=== PATIENT | female | born 1960 | race Caucasian/White ===

== ENCOUNTER 2017-09-25 18:29 | Inpatient (IN) | payer OTHER, SELFPAY ==
[2017-09-25] MEDS ORDERED: Albuterol Sulfate 2.5 mg/3 ml Neb ONE ×2 (19:09)
[2017-09-25 19:50] LABS: Sodium 134 mmol/L (135-148)
[2017-09-25 19:51] LABS: Mode BIPAP; Modified Allen's Test POSITIVE; Pressure Support 12 cmH2O; Vent NO
[2017-09-25 20:10] LABS: Troponin I 0.016 ng/mL (< 0.028)
--- NOTE | 2017-09-25 22:47 | HP-2 ---
DATE OF SERVICE: 09/25/2017 TIME OF ADMISSION: 19:40, on 09/25/2017 CODE STATUS: Full. PRIMARY CARE PHYSICIAN: Patricia Lance in [place], [place]. ATTENDING PHYSICIAN: Dr. Arias. RESIDENT: Dr. Brannon Briggs. HISTORIAN: Patient. CHIEF COMPLAINT: Shortness of breath. HISTORY OF PRESENT ILLNESS: A 57-year-old female with a past medical history of COPD who presents wi th several day history of worsening shortness of breath. Patient failed outpatient treatment on pred nisone. After seeing her PCP, Dr. Patricia Lance in [place], she then went [place] the [place] [facility] [place] this [place] for chest tightness and inability to take a deep breath and she was noted to have increased work of breathing, was tachypneic, had elevated respiratory rate and was given Solu-Medrol, DuoNebs x2 and Levaquin. She was still having difficulty breathing after these treatments and was p laced on BiPAP and they were unable to wean her. She was then transferred here. In the [place] [facility], the patient received 125 mg Solu-Medrol, 750 mg IV of Levaquin, DuoNeb x2, aspirin 324 mg and ma gnesium sulfate, all received at 16:38. Here, in this ER, the patient received albuterol nebs. PAST MEDICAL HISTORY: COPD, osteoarthritis, asthma, hyperlipidemia and prediabetic depression. PRIOR HOSPITALIZATIONS: On 11/2016, the patient was admitted and intubated for COPD exacerbation. T he patient states she was on life support and states that she was told she had some right heart damag e. The patient received an echo at that time, which showed an ejection fraction of 60% to 65%, trace tricuspid regurg and mild mitral valve regurg and a small pericardial effusion. PAST SURGICAL HISTORY: Appendectomy and tubal ligation. ALLERGIES: SULFA. MEDICATIONS: Famotidine, DuoNebs, prednisone 30 mg daily, Advair, ProAir and Lasix started 3 weeks a go. FAMILY HISTORY: OR in mom at 57 and at 59. SOCIAL HISTORY: The patient quit smoking 1 year ago prior to had [id number] smoking history. [facility] ed alcohol and drug use. REVIEW OF SYSTEMS: GENERAL: Denied fevers or chills. Endorsed a 40-pound weight gain over the last 8-9 months. RESPIRATORY: Denied cough or congestion. Endorsed shortness of breath. CARDIOVASCULAR: Denied chest pain or palpitations. Endorsed edema in her bilateral lower extremitie s. GASTROINTESTINAL: Denied nausea, vomiting, diarrhea or constipation. Endorsed midepigastric and rig ht upper quadrant soreness and bloating. GENITOURINARY: Denies incontinence or dysuria. SKIN: Denied rashes, lesions or jaundice. MUSCULOSKELETAL: Denied pain or tenderness. Endorsed lower extremity swelling bilaterally. NEUROLOGIC: Denied weakness or numbness. PSYCHIATRIC: Denied anxiety or depression. PHYSICAL EXAMINATION: VITAL SIGNS: Blood pressure 111/80, pulse 113, respiratory rate 16, T-max 98.4%, pulse ox 97% on BiP AP. EPAP and IPAP were 12 and 6. Rate was set at 8, but she was breathing at approximately 20 breat hs per minute on 35% O2. GENERAL: Alert and oriented x4, no apparent distress, well-developed, well-nourished, obese, appropr iately interactive. EYES: Pupils are equal, round and reactive to light and accommodation. Extraocular muscles intact. Conjunctivae within normal limits. ENT: Oropharynx and nasal mucosa dry. NECK: Supple. No thyromegaly. CARDIOVASCULAR: Mildly tachycardic. No murmurs. Distant S1 and S2. 2+ pedal pulses. RESPIRATORY: Increased effort without retractions. Decreased breath sounds throughout all lung fiel ds. No wheezing, rhonchi or rales. ABDOMEN: Soft, right upper quadrant and midepigastric tenderness. Hypoactive bowel sounds diffusely distended. EXTREMITIES: No clubbing or cyanosis. Edema present 1+ pitting in bilateral lower extremities to th e mid anders. MUSCULOSKELETAL: Structure within normal limits. NEUROLOGICAL: No focal deficits. Sensation within normal limits. Cranial nerves II-XII intact. GC S 15. PSYCHIATRIC: Appropriate. LABORATORY AND IMAGING DATA: CBC: White blood cell count 16.8, hemoglobin and hematocrit 14.3 and 4 3.1, platelets 267. CMP: Sodium 138, potassium 3.5, chloride 99, bicarb 25, BUN 13, creatinine 0.89 and glucose 312. AST, ALT and alkaline phosphatase 24, 76 and 53. Calcium, total protein and albumin 8.5, 6.22 and 3. 5. Total bilirubin 0.3, GFR 66, troponin 0.034 and BNP 45. ABG: PH of 7.42, pCO2 of 32 and pO2 115. EKG: Sinus tachycardia. Chest x-ray: Hyperinflation with chronic changes, superimposed interstitial infiltrate or edema verónica ot be ruled out. ASSESSMENT AND PLAN: A 57-year-old female with a past medical history of chronic obstructive pulmona ry disease presenting with worsening shortness of breath over the past several days who failed outpat ient management on oral prednisone, transferred from [facility] on BiPAP and may have her chroni c obstructive pulmonary disease exacerbation on BiPAP to the [facility] and with fluid overload, which coul d be due to new onset heart failure. 1. Acute hypoxic respiratory failure secondary to chronic obstructive pulmonary disease exacerbation . The patient was admitted to [facility], currently on BiPAP. We will continue the BiPAP overnight. Dr. South was consulted. The patient received 125 mg of Solu-Medrol in the [place] ER. We will st art the patient on methylprednisone 40 mg IV q.6 hours. We will also schedule the patient on DuoNeb q.4 hours and provide albuterol p.r.n. q.2 hours. The patient takes Advair at home. We will start t he patient on Dulera, which is the Advair equivalent here daily. We will continue Levaquin 750 mg IV ; patient received one dose at 16:38 on 09/25 in the [place] ER. We will repeat a chest x-ray a nd ABG in the morning. We will attempt to wean the patient off BiPAP in the morning. 2. Volume overload, possibly secondary to new onset heart failure. Patient had an echo in 11/2016 w ith an ejection fraction of 60% to 65%, which showed trace tricuspid regurgitation and mild mitral re gurgitation with a small pericardial effusion. The patient stated that in November, she was on life support and was told that she had some right heart damage. We will repeat an echo in the morning. W e started the patient on Lasix 40 mg IV for her fluid overload. We also started the patient on 40 mg of potassium chloride b.i.d. A repeat BNP will be done in the morning as well as a repeat BNP. 3. Elevated troponins without chest pain. We will trend patient's troponins. We will order an EKG if the patient does develop chest pain. 4. Obesity with a 40-pound weight gain, likely fluid overload versus chronic steroid use. We will r epeat a BNP and an echo in the morning to evaluate for cardiac etiology. 5. Prediabetic. We will check the patient's hemoglobin A1c and provide sliding scale insulin for th e first 24 hours and possibly recommend long-acting insulin depending on how much sliding scale she r equires. 6. Hyperlipidemia. The patient is not currently taking a statin. We will order a lipid profile. 7. Elevated liver enzymes. We will repeat a CMP in the morning. Disposition and length of hospital stay 3 days. Symptomatic medications will be provided. History and physical exam as well as management discussed with Dr. Arias.
[2017-09-25] MEDS ORDERED: Dextrose 5% in Water 1,000 ML IV PRN (22:50)
[2017-09-25] MEDS ORDERED: HumaLOG 300 UNITS/3 ML VIAL SC PRN (22:50)
[2017-09-25] MEDS ORDERED: Albuterol Sulfate 2.5 mg/3 ml Neb NEB PRN (22:50)
[2017-09-25] MEDS ORDERED: Dextrose 50% Abboject 50 ML SYRINGE SLOW IVP PRN (22:50)
[2017-09-25 22:59] VITALS: BMI 34.0
[2017-09-25] MEDS ORDERED: Potassium Chloride 20 MEQ TAB PO SCH (23:00)
[2017-09-25] MEDS ORDERED: Furosemide 40 MG/4 ML VIAL SLOW IVP SCH (23:00)
[2017-09-25] MEDS ORDERED: Famotidine/PF 20 mg/2ml Vial SLOW IVP SCH (23:15)
[2017-09-25 23:17] LABS: Hemoglobin A1c 7.8 % (4.0-6.0)
[2017-09-25] MEDS: Sodium Chloride 0.9% 1,000 ML IV SCH (23:30)
[2017-09-25] MEDS: methylPREDNISolone Sod Succ/PF 125 MG/2 ML VIAL IVP SCH (23:30)
[2017-09-26] MEDS: Acetaminophen 325 MG TAB PO PRN ×3 (01:21→20:21)
[2017-09-26 05:02] LABS: #Eosinphils 0.1 thou/uL (0.0-0.7); #Lymphocytes 0.4 thou/uL (1.20-3.40); #Monocytes 0.3 thou/uL (0.11-0.59); #Neutrophils 9.8 thou/uL (1.40-6.50); %Basophils 0.1 % (0.0-1.0); %Eosinophils 0.6 % (0.0-10.0); %Lymphocytes 3.3 % (21.0-51.0); %Monocytes 2.8 % (0.0-10.0); Hematocrit 42.8 % (36.0-47.0); Mean Platelet Volume 6.8 fL (7.4-10.4); Red Blood Cell (RBC) Count 4.33 mill/uL (4.20-5.40); White Blood Cell (WBC) Count 10.5 thou/uL (4.8-10.8)
[2017-09-26 05:13] LABS: ALT (SGPT) 71 U/L (8-55); AST (SGOT) 14 U/L (5-34); Alkaline Phosphatase 51 U/L (40-150); Anion Gap 17 mmol/L (10-20); BUN (Urea Nitrogen) 17 mg/dL (9.8-20.1); Bilirubin, Total 0.3 mg/dL (0.2-1.2); Calc. Creatinine Clearance 72 mL/min (70-130); Calcium 9.3 mg/dL (7.8-10.44); Carbon Dioxide 24 mmol/L (22-29); Chloride 97 mmol/L (98-107); Estimated GFR-MDRD 48; Globulin 2.6 g/dL (2.4-3.5); Protein, Total 6.4 g/dL (6.0-8.3)
[2017-09-26] MEDS: methylPREDNISolone Sod Succ/PF 125 MG/2 ML VIAL IVP SCH (05:39)
[2017-09-26] MEDS: Sodium Chloride 0.9% 1,000 ML IV SCH (05:40)
--- NOTE | 2017-09-26 06:55 | PDOC.FM ---
- Subjective Subjective: Patient doing well this AM. She was able to get off of BiPAP last night and back on 3L by nasal cannula which is what she is on at home. Her work of breathing has decreased. No significant overnight events. She did state that the lasix helped take some fluid off of the lower extremities. Patient denies chest pain, fever, or chills. She states that she still gets short of breath when she has to move around. She has been in and out of her PCP's office all this year with COPD exacerbations and has been on steroids chronically for the past year. - Objective MAR Reviewed: Yes Vital Signs & Weight: Vital Signs (12 hours) Temp Pulse Resp BP Pulse Ox 09/26/17 04:00 97.7 F 97 18 124/77 96 09/26/17 00:25 126 H 20 94 L 09/26/17 00:00 97.9 F 103 H 20 142/58 H 97 09/25/17 23:14 97.7 F 110 H 22 H 94 L 09/25/17 22:15 97.7 F 110 H 22 H 112/81 94 L Weight Weight 84.504 kg Result Diagrams: 09/26/17 04:30 09/26/17 04:30 EKG Reviewed by me: Yes Radiology Reviewed by me: Yes <Cathy Harris - Last Filed: 09/26/17 07:59> - Objective Vital Signs & Weight: Vital Signs (12 hours) Temp Pulse Resp BP BP Pulse Ox 09/26/17 07:58 97.3 F L 89 20 126/64 97 09/26/17 07:55 97.7 F 97 18 96 09/26/17 04:00 97.7 F 97 18 124/77 96 09/26/17 00:25 126 H 20 94 L 09/26/17 00:00 97.9 F 103 H 20 142/58 H 97 09/25/17 23:14 97.7 F 110 H 22 H 94 L 09/25/17 22:15 97.7 F 110 H 22 H 112/81 94 L Weight Weight 186 lb 4.8 oz Result Diagrams: 09/26/17 04:30 09/26/17 04:30 <Angel Arias - Last Filed: 09/26/17 09:57> Phys Exam - Physical Examination HEENT: moist MMs, sclera anicteric Neck: supple Decreased breath sounds throughout Cardiovascular: RRR, no significant murmur Gastrointestinal: soft, no distention, positive bowel sounds mildly tender Musculoskeletal: no edema decreased pulses Neurological: non-focal, moves all 4 limbs Psychiatric: A&O x 3 Skin: no rash, cap refill <2 seconds <Cathy Harris - Last Filed: 09/26/17 07:59> Dx/Plan (1) Acute on chronic respiratory failure with hypoxia Code(s): J96.21 - ACUTE AND CHRONIC RESPIRATORY FAILURE WITH HYPOXIA Status: Acute (2) COPD exacerbation Code(s): J44.1 - CHRONIC OBSTRUCTIVE PULMONARY DISEASE W (ACUTE) EXACERBATION Status: Acute (3) Diabetes mellitus, type II Status: Chronic (4) Hypertension Code(s): I10 - ESSENTIAL (PRIMARY) HYPERTENSION Status: Chronic QualifierTitle: Hypertension type: essential hypertension Qualified Code( s): I10 - Essential (primary) hypertension (5) Obesity (BMI 30-39.9) Code(s): E66.9 - OBESITY, UNSPECIFIED Status: Chronic (6) Tobacco abuse Code(s): Z72.0 - TOBACCO USE Status: Chronic - Plan Plan: Plan: Acute hypoxic respiratory failure: - Continue BiPAP - Treat COPD exacerbation - Wean off BiPAP as tolerated - AB.42, 32.3, 115.7 - Repeat ABG pending - CXR shows possible congestion, repeat CXR read pending for this AM - Possible new onset CHF; ECHO pending COPD exacerbation: - Continue BiPAP, wean as tolerated - Continue levoquin, methylprednisone, duonebs; switch to PO meds - Repeat ABG pending this AM - CXR shows chronic lung changes - Keep O2 between 88 and 94% - Restart home medications - Add Spiriva - Consider treatment with Azithromycin as outpatient Diabetes Mellitus Type II: - HgA1c 7.8 - BG elevated on Mild SSI; consider starting levemir - Started patient on lisinopril and statin - Likely steroid induced - Restart metformin Possible new onset CHF - Echo pending - Patient with LE edema and weight gain - Lasix started - BNP pending HTN - Continue home meds - Started on lisinopril Dispo: plan to move patient to floor; possible d/c within next few days if patient continues to do well <Cathy Harris - Last Filed: 09/26/17 07:59> Attending Addendum - Attending Addendum I personally evaluated the patient and discussed the management with Dr. Harris I agree with the History, Examination, Assessment and Plan documented above with any addition or exceptions noted below. She is much better overnight. She weaned from BiPap. Edema is improved and her breathing is stable. She can go to the floor. Continue Lasix, Nebs, O2. <Angel Arias - Last Filed: 09/26/17 09:57>
[2017-09-26] MEDS ORDERED: Dextrose 50% Abboject 50 ML SYRINGE SLOW IVP PRN (08:11)
[2017-09-26] MEDS ORDERED: Dextrose 5% in Water 1,000 ML IV PRN (08:11)
[2017-09-26] MEDS: predniSONE 20 MG TAB PO SCH (09:31)
[2017-09-26] MEDS: Aspirin 325 MG TAB PO SCH (09:31)
[2017-09-26] MEDS: Montelukast Sodium 10 mg Tablet PO SCH (09:31)
[2017-09-26] MEDS: Famotidine/PF 20 mg/2ml Vial SLOW IVP SCH ×2 (09:32→20:21)
[2017-09-26] MEDS: Furosemide 40 MG/4 ML VIAL SLOW IVP SCH (09:32)
[2017-09-26] MEDS: Potassium Chloride 20 MEQ TAB PO SCH (09:32)
[2017-09-26] MEDS: Lisinopril 2.5 MG TAB PO SCH (09:38)
[2017-09-26] MEDS: Enoxaparin Sodium 40 MG/0.4 ML SYRINGE SC SCH (09:56)
--- NOTE | 2017-09-26 10:04 | RAD ---
1 VIEW CHEST: Date: 09/26/17 HISTORY: New onset COPD exacerbation. COMPARISON: 12/01/16. FINDINGS: Stable cardiac silhouette. Pulmonary vessels and hilum are normal. Costophrenic angles are clear. Hyp erinflation with chronic changes. No masses or consolidation. No pneumothorax. Cervical fusion hardwa re is noted. IMPRESSION: Hyperinflation. No acute process. POS: [facility]
[2017-09-26] MEDS: HumaLOG 300 UNITS/3 ML VIAL SC PRN ×2 (11:28→16:59)
[2017-09-26] MEDS ORDERED: ISOVUE-370 76%-LOCM 1 ML ONE (11:48)
[2017-09-26 12:10] LABS: Oxyhemoglobin 94.4 % (94.0-97.0); Sodium 134 mmol/L (135-148)
[2017-09-26 12:11] LABS: Mode 2LNC
[2017-09-26] MEDS ORDERED: Cyclobenzaprine 10 MG TAB PO SCH (15:15)
[2017-09-26] MEDS: metFORMIN 500 MG TAB PO SCH (16:13)
[2017-09-26] MEDS: Atorvastatin Calcium 10 MG TAB PO SCH (20:22)
--- NOTE | 2017-09-26 22:53 | CON ---
DATE OF CONSULTATION: 09/26/2017 SERVICE: Pulmonary Medicine. REASON FOR CONSULTATION: Respiratory failure. HISTORY OF PRESENT ILLNESS: The patient is a 57-year-old white female with past medical history sign ificant for horrendous COPD. I saw her back in November. Since then, she has basically been in and out hospital for COPD exacerbations and possible pneumonias. She presented to the emergency [facility] at this time around with a 1 month history of increasing difficulty breathing, particularly with e xertion and at night while she was sleeping. She is essentially sleeping up right now. She also has weight gain, abdominal swelling, and lower extremity swelling. She is on 40 pounds of weight over t he past 5 months. She underwent a heart evaluation, which has essentially been unremarkable today, b ut is not quite complete yet. In this setting, she presented to the emergency department. Her diffi culty breathing was so severe that she intermittently required noninvasive ventilation. This was dis continued this morning. She was subsequently transitioned to the floor. She does feel much improved with a little bit of Lasix, nebulized medications, steroids, and antibiotics. PAST MEDICAL HISTORY: 1. COPD, horrendous. 2. Osteoarthritis. 3. Dyslipidemia. 4. Major depressive disorder. 5. Prediabetes. PAST SURGICAL HISTORY: 1. Appendectomy. 2. Tubal ligation. ALLERGIES: SULFA. MEDICATIONS: List of inpatient medications were reviewed. Multiple updates were made. SOCIAL HISTORY: Negative for alcohol, tobacco, or illicit drug use, currently. She has a 20-pack-ye ar history of smoking, and quit a year ago. She has no exposure to chemicals, dust, asbestos, or tu berculosis. FAMILY HISTORY: Noncontributory. REVIEW OF SYSTEMS: General, head, ears, eyes, nose, throat, cardiovascular, respiratory, GI, , mus culoskeletal, neurologic, and skin is negative except as mentioned in the HPI. PHYSICAL EXAMINATION: VITAL SIGNS: Afebrile, pulse 113, blood pressure was 120/67, respirations 16, saturation 96% on 2 li ters nasal cannula. GENERAL: Patient is awake, alert, in no apparent distress. LUNGS: Per family, reduced air entry. There is a prolonged expiratory phase. She is not enough air for me to hear adventitious sounds. HEART: Tachycardic. Regular. ABDOMEN: Soft, nontender, nondistended, bowel sounds positive. MUSCULOSKELETAL: No cyanosis or clubbing. There is 2+ pitting in the bilateral lower extremities. NEUROLOGIC: Grossly nonfocal. LABORATORY DATA: WBC 10.5, hemoglobin 13.5, platelets 274,000. PH 7.43, pCO2 35, pO2 of 69. Creati nine 1.17. Basic metabolic profile is otherwise unremarkable. Liver function studies were also unre markable except for an ALT of 71. Blood sugars ranged from 226 to 334. ASSESSMENT: 1. Acute hypoxic respiratory failure. 2. Chronic obstructive pulmonary disease with acute exacerbation. 3. Acute on chronic diastolic heart failure. PLAN: I do agree with diurese her until she returns euvolemia. In the meantime, we will give her so me steroids, nebulized medications, and antibiotics. I do think that she has horrendous COPD at [place]. I sprinkled on a little bit of water into a very thick lungs and you are going to face with re current exacerbations. She likely has obstructive sleep apnea. This will need to be addressed in e outpatient setting. Pulmonary will continue to follow for the time being.
--- NOTE | 2017-09-26 23:11 | CT ---
CT ANGIOGRAM OF CHEST: Date: 09/17/17 COMPARISON: 06/25/17. HISTORY: Tachycardia and shortness of breath, assess for pulmonary embolism. TECHNIQUE: Serial axial CT imaging obtained at 2.5 mm intervals through the chest with IV contrast using a CT an giogram protocol. Coronal and oblique sagittal 3D reformatted imaging obtained. FINDINGS: The imaged upper abdomen demonstrates diffuse hepatic steatosis of the imaged hepatic parenchyma. Vag ue hypodensities are noted within the imaged portion of the right kidney, incompletely characterized. There is scattered atherosclerotic calcification of the thoracic and abdominal aorta. There is no pleural, pericardial, or mediastinal fluid. Incompletely assessed cervical spine hardware is present. Thyroid gland is grossly unremarkable. No axillary, mediastinal, or hilar lymphadenopathy. Small hiat al hernia present. Scattered coronary arterial calcifications seen. There is good opacification of the pulmonary arterial vasculature. There is no evidence for pulmonary embolism. There is no pneumothorax seen on either side. Linear pleural thickening along the major fissure on the left most prominent in the superior segment, improved significantly since prior imaging. There is significant upper lobe emphysematous change avery aterally. No acute osseous abnormality is noted. IMPRESSION: Numerous incidental findings as described above. No evidence for pulmonary embolism. POS: [facility]
--- NOTE | 2017-09-27 05:47 | PDOC.FM ---
- Subjective Subjective: Patient doing well this AM. She was sitting at bedside drinking coffee. No significant overnight events. A CTA of chest was performed to rule out PE. It was negative. Patient states her breathing has improved, but her lungs still feel "wet". She has been intermittently tachycardic, but not tachypneic. Patient also endorses urinary symptoms this AM. She states she is urinating more frequently which can be explained by the lasix, but she has also been experiencing discomfort with urination since yesterday. - Objective MAR Reviewed: Yes Vital Signs & Weight: Vital Signs (12 hours) Temp Pulse Resp BP Pulse Ox 09/27/17 04:16 98.7 F 108 H 21 H 116/51 L 99 09/27/17 02:24 101 H 16 97 09/27/17 00:06 106 H 18 96 09/26/17 22:17 105 H 20 96 09/26/17 19:30 97.9 F 120 H 20 96 09/26/17 18:43 113 H 16 96 Weight Weight 84.504 kg I&O: 09/25/17 09/26/17 09/27/17 06:59 06:59 06:59 Intake Total 970 Output Total 2650 Balance -1680 Result Diagrams: 09/27/17 05:30 09/27/17 05:30 EKG Reviewed by me: Yes Radiology Reviewed by me: Yes Phys Exam - Physical Examination Constitutional: NAD HEENT: moist MMs, sclera anicteric Neck: supple Decreasd breath sounds throughout Cardiovascular: RRR, no significant murmur Gastrointestinal: soft, non-tender, positive bowel sounds mildly distended Musculoskeletal: edema present pedal and radial pulses 1+, 1+ edema b/l LE Neurological: non-focal, moves all 4 limbs Psychiatric: normal affect, A&O x 3 Skin: no rash, cap refill <2 seconds Dx/Plan (1) Acute on chronic respiratory failure with hypoxia Code(s): J96.21 - ACUTE AND CHRONIC RESPIRATORY FAILURE WITH HYPOXIA Status: Acute (2) COPD exacerbation Code(s): J44.1 - CHRONIC OBSTRUCTIVE PULMONARY DISEASE W (ACUTE) EXACERBATION Status: Acute (3) Diabetes mellitus, type II Status: Chronic (4) Hypertension Code(s): I10 - ESSENTIAL (PRIMARY) HYPERTENSION Status: Chronic Qualifiers: Hypertension type: essential hypertension Qualified Code(s): I10 - Essential (primary) hypertension (5) Obesity (BMI 30-39.9) Code(s): E66.9 - OBESITY, UNSPECIFIED Status: Chronic (6) Tobacco abuse Code(s): Z72.0 - TOBACCO USE Status: Chronic - Plan Plan: Plan: Acute hypoxic respiratory failure: - Weaned from BiPAP; satting in the upper 90's on 2L O2 - Treat COPD exacerbation - AB.42, 32.3, 115.7; repeat AB.43, 34.7, 69.4 - CTA chest ordered to rule out PE due to acid/base status - CXR shows possible congestion; diurese patient - Echo confirmed grade 1/3 diastolic CHF COPD exacerbation: - Continue oxygen - Continue levoquin, prednisone, duonebs - CXR shows chronic lung changes with some possible congestion - Keep O2 between 88 and 94% - Restart home medications - Add Spiriva as outpatient - Consider treatment with Azithromycin as outpatient dCHF - Confirmed by ECHO - Grade 1/3 dCHF - Diurese - Continue KENYETTA-I - BNP 45 - LE edema and weight gain over the last few months Diabetes Mellitus Type II: - HgA1c 7.8 - BG elevated on Moderate SSI; consider starting levemir - Started patient on lisinopril and statin - Likely steroid induced - Home meds: metformin HTN - Started on lisinopril Dysuria: - Urinalysis Dispo: Continue to monitor respiratory status; may consider discharge within the next few days
[2017-09-27 05:51] LABS: #Eosinphils 0.3 thou/uL (0.0-0.7); #Monocytes 1.1 thou/uL (0.11-0.59); #Neutrophils 10.9 thou/uL (1.40-6.50); %Basophils 0.3 % (0.0-1.0); %Eosinophils 1.8 % (0.0-10.0); %Lymphocytes 13.8 % (21.0-51.0); %Monocytes 7.9 % (0.0-10.0); Hematocrit 43.2 % (36.0-47.0); Mean Platelet Volume 6.3 fL (7.4-10.4); White Blood Cell (WBC) Count 14.3 thou/uL (4.8-10.8)
[2017-09-27 06:15] LABS: ALT (SGPT) 63 U/L (8-55); AST (SGOT) 19 U/L (5-34); Alkaline Phosphatase 47 U/L (40-150); Anion Gap 13 mmol/L (10-20); BUN (Urea Nitrogen) 19 mg/dL (9.8-20.1); Bilirubin, Total 0.3 mg/dL (0.2-1.2); Calc. Creatinine Clearance 82 mL/min (70-130); Calcium 9.6 mg/dL (7.8-10.44); Carbon Dioxide 28 mmol/L (22-29); Chloride 99 mmol/L (98-107); Estimated GFR-MDRD 59; Globulin 2.5 g/dL (2.4-3.5); Protein, Total 6.1 g/dL (6.0-8.3)
[2017-09-27 06:19] LABS: Troponin I 0.021 ng/mL (< 0.028)
[2017-09-27] MEDS: Aspirin 325 MG TAB PO SCH (09:03)
[2017-09-27] MEDS: Montelukast Sodium 10 mg Tablet PO SCH (09:03)
[2017-09-27] MEDS: predniSONE 20 MG TAB PO SCH (09:03)
[2017-09-27] MEDS: metFORMIN 500 MG TAB PO SCH ×2 (09:03→16:43)
[2017-09-27] MEDS: Furosemide 40 MG/4 ML VIAL SLOW IVP SCH (09:03)
[2017-09-27] MEDS: Enoxaparin Sodium 40 MG/0.4 ML SYRINGE SC SCH (09:03)
[2017-09-27] MEDS: Potassium Chloride 20 MEQ TAB PO SCH (09:03)
[2017-09-27] MEDS: Lisinopril 2.5 MG TAB PO SCH (09:03)
[2017-09-27] MEDS: Acetaminophen 325 MG TAB PO PRN ×2 (09:17→20:21)
--- NOTE | 2017-09-27 10:44 | PRG ---
DATE OF SERVICE: 09/27/2017 SUBJECTIVE: Ms. Werner is a pleasant 57-year-old patient with a history of severe COPD. She was a dmitted with acute on chronic respiratory failure with hypoxia and an exacerbation of her COPD. She was treated with steroids and DuoNeb and feels much better. She is also diuresed a great deal. She likely has an element of cor pulmonale causing some of her peripheral edema. She also has a history of diastolic heart failure and a recent echo shows an ejection fraction of 60%-65%. This morning, yoli states she is feeling better. She had quit taking her medications for several days and this likely led to an exacerbation of her COPD as well as diastolic heart failure. She will likely be discharge d later this afternoon for close followup.
[2017-09-27 12:35] LABS: Bilirubin Negative (Negative); Blood, Urine Trace (Negative); Glucose, Urine (Dipstick) Negative (Negative); Ketone, Urine Negative (Negative); Nitrite Negative (Negative); Protein, Urine (Dipstick) Negative (Neg-Trace); Urobilinogen 0.2 mg/dL (0.2-1.0)
[2017-09-27] MEDS: HumaLOG 300 UNITS/3 ML VIAL SC PRN ×2 (12:44→16:45)
[2017-09-27 12:53] LABS: RBC/HPF 0-3 HPF (0-3); WBC/HPF 0-3 HPF (0-3)
[2017-09-27 12:54] LABS: Bacteria/HPF Rare-Few HPF (None Seen); Hyaline Casts/LPF NONE SEEN LPF (0-3 Hyaline); Squamous Epithelial 0-3 HPF (0-3)
[2017-09-27] MEDS ORDERED: Cyclobenzaprine 10 MG TAB PO PRN (14:10)
--- NOTE | 2017-09-27 18:39 | PRG ---
DATE OF SERVICE: 09/27/2017 SERVICE: Pulmonary Medicine. INTERVAL HISTORY: The patient is doing fine from a respiratory standpoint. Last night, she put her CPAP on. It hyperinflated her lungs and she felt suffocated. I did not have the same effect with th e previous BiPAP had. As such, after 1 hour, she had difficulty with breathing and took her an addit ional hour to settle down. She reattempted using the CPAP this morning and had a similar experience. As such, she has been in therapy altogether. She is bringing up sputum production. She has no sig nificant nausea or vomiting or diarrhea. Otherwise, things are relatively stable. PHYSICAL EXAMINATION: VITAL SIGNS: Afebrile, pulse 115, blood pressure 91/66, respirations 21, saturation 95% on 2 liters nasal cannula. GENERAL: Patient is awake, alert, in no apparent distress. LUNGS: Reduced air entry with prolonged expiratory phase. I do not appreciate any wheezing, rhonchi , or crackles, but she is not moving enough to hear any adventitious sounds. HEART: Tachycardic. Regular. ABDOMEN: Soft, nontender, nondistended. Bowel sounds positive. MUSCULOSKELETAL: No cyanosis or clubbing. There is 1+ pitting in the bilateral lower extremities. NEUROLOGIC: Grossly nonfocal. LABORATORY DATA: WBC 14.3, hemoglobin 13.7, platelets 271,000. Basic metabolic profile and liver fu nction studies are unremarkable. Cardiac enzymes negative. Blood sugars ranged from 140-182. Urina lysis is unremarkable. IMAGING: CTA of the chest demonstrates no evidence of an acute pulmonary embolism. ASSESSMENT: 1. Acute hypoxic respiratory failure. 2. Chronic obstructive pulmonary disease with acute exacerbation. 3. Acute on chronic diastolic heart failure. We will continue to slowly diurese her until she retur ns to euvolemia. We are fast approaching that place. We will continue antibiotic, nebulized medicat ions, and steroids for the time being. Hopefully, in 24-48 hours, she will turn to corner and be muc h more functional. CPAP is going to be discontinued. I would love to put the patient through a slee p study in the outpatient setting to determine whether or not we can qualify her for BiPAP, but she i s suggesting to me that this is unlikely to get done because she currently has no insurance. I have asked her to look into getting some as it is open enrollment.
[2017-09-27] MEDS: Atorvastatin Calcium 10 MG TAB PO SCH (20:21)
[2017-09-28] MEDS: Cyclobenzaprine 10 MG TAB PO PRN ×3 (00:17→20:49)
[2017-09-28] MEDS: Acetaminophen 325 MG TAB PO PRN ×3 (06:36→21:12)
--- NOTE | 2017-09-28 06:39 | PDOC.FM ---
- Subjective Subjective: Patient doing well this AM. No significant overnight events. Patient still having difficulty with breathing when ambulating. Symptoms have improved, but patient does not yet feel back to baseline. She denies chest pain or cough. She states she is starting to feel dry, but is still complaining of abdominal bloating secondary to fluid. - Objective MAR Reviewed: Yes Vital Signs & Weight: Vital Signs (12 hours) Temp Pulse Resp BP Pulse Ox 09/28/17 06:21 94 L 09/28/17 04:00 97.6 F 107 H 16 104/56 L 96 09/28/17 01:50 94 L 09/27/17 22:00 94 L 09/27/17 19:16 95 09/27/17 19:14 20 95 09/27/17 19:10 97.9 F 112 H 22 H 95 Weight Weight 79.832 kg I&O: 09/26/17 09/27/17 09/28/17 06:59 06:59 06:59 Intake Total 1120 1310 Output Total 3650 3300 -2529 Result Diagrams: 09/27/17 05:30 09/27/17 05:30 EKG Reviewed by me: Yes Radiology Reviewed by me: No Phys Exam - Physical Examination Constitutional: NAD HEENT: moist MMs, sclera anicteric Neck: supple, full ROM decreased breath sounds throughout Cardiovascular: RRR, no significant murmur Gastrointestinal: soft, non-tender, no distention, positive bowel sounds Musculoskeletal: pulses present Neurological: non-focal, moves all 4 limbs Psychiatric: A&O x 3 Skin: no rash, cap refill <2 seconds Dx/Plan (1) Acute on chronic respiratory failure with hypoxia Code(s): J96.21 - ACUTE AND CHRONIC RESPIRATORY FAILURE WITH HYPOXIA Status: Acute (2) COPD exacerbation Code(s): J44.1 - CHRONIC OBSTRUCTIVE PULMONARY DISEASE W (ACUTE) EXACERBATION Status: Acute (3) Diabetes mellitus, type II Status: Chronic (4) Hypertension Code(s): I10 - ESSENTIAL (PRIMARY) HYPERTENSION Status: Chronic Qualifiers: Hypertension type: essential hypertension Qualified Code(s): I10 - Essential (primary) hypertension (5) Obesity (BMI 30-39.9) Code(s): E66.9 - OBESITY, UNSPECIFIED Status: Chronic (6) Tobacco abuse Code(s): Z72.0 - TOBACCO USE Status: Chronic - Plan Plan: Plan: Acute hypoxic respiratory failure: - Satting in upper 90's on 2-3 L O2 nasal cannula - Treat COPD exacerbation - AB.42, 32.3, 115.7; repeat AB.43, 34.7, 69.4 - CTA chest ordered to rule out PE due to acid/base status; negative for PE - CXR shows possible congestion; diurese patient - Echo confirmed grade 1/3 diastolic CHF Tachycardia: - May be secondary to duoneb treatments vs. deconditioning - Continue to monitor on telemetry COPD exacerbation: - Continue oxygen - Continue levoquin, prednisone, duonebs - CXR shows chronic lung changes with some possible congestion - Keep O2 between 88 and 94% - Restart home medications - Add Spiriva as outpatient - Consider treatment with Azithromycin as outpatient dCHF - Confirmed by ECHO - Grade 1/3 dCHF - Diurese until euvolemic - Continue KENYETTA-I - BNP 45 - LE edema and weight gain over the last few months - Diabetes Mellitus Type II: - HgA1c 7.8 - BG elevated on Moderate SSI; consider starting levemir - Requiring approximately 8 units of SSI - Started patient on lisinopril and statin - Likely steroid induced - Home meds: metformin HTN - Started on lisinopril Dysuria: - Urinalysis negative, will not treat at this time Dispo: Continue to monitor respiratory status; may consider discharge within next day if respiratory status stable
[2017-09-28] MEDS: Potassium Chloride 20 MEQ TAB PO SCH (08:14)
[2017-09-28] MEDS: Montelukast Sodium 10 mg Tablet PO SCH (08:15)
[2017-09-28] MEDS: Aspirin 325 MG TAB PO SCH (08:15)
[2017-09-28] MEDS: Enoxaparin Sodium 40 MG/0.4 ML SYRINGE SC SCH (08:15)
[2017-09-28] MEDS: predniSONE 20 MG TAB PO SCH (08:15)
[2017-09-28] MEDS: Furosemide 40 MG/4 ML VIAL SLOW IVP SCH (08:15)
[2017-09-28] MEDS ORDERED: metFORMIN 500 MG TAB PO SCH (08:16)
[2017-09-28] MEDS: Lisinopril 2.5 MG TAB PO SCH (10:21)
[2017-09-28] MEDS: metFORMIN 500 MG TAB PO SCH ×3 (10:23→16:07)
--- NOTE | 2017-09-28 12:59 | EKG ---
Test Reason : Blood Pressure : / mmHG Vent. Rate : 113 BPM Atrial Rate : 113 BPM P-R Int : 152 ms QRS Dur : 054 ms QT Int : 312 ms P-R-T Axes : 082 045 067 degrees QTc Int : 427 ms Sinus tachycardia Possible Left atrial enlargement Nonspecific ST and T wave abnormality Abnormal ECG Confirmed by NESTOR STEVENSON ([id number]), online content editor OSMAN BROWN ([id number]) on 09/28/2017 12:58:41 PM Referred By: Confirmed By:NESTOR STEVENSON
--- NOTE | 2017-09-28 13:31 | ADD-PRG ---
ADDENDUM: This is an addendum to the note of Dr. Cathy Harris. Ms. Werner is resting quietly in bed. She has responded well to diuresis and has no further shortn ess of breath. We can likely let her go home later today, but we will consult with Pulmonology who s ees on a regular basis. In the event, she is clinically improved.
[2017-09-28] MEDS: HumaLOG 300 UNITS/3 ML VIAL SC PRN ×2 (14:26→18:26)
[2017-09-28] MEDS ORDERED: Famotidine 20 MG TAB PO SCH (15:45)
--- NOTE | 2017-09-28 18:19 | PRG ---
DATE OF SERVICE: 09/28/2017 SERVICE: Pulmonary Medicine. INTERVAL HISTORY: The patient is doing fine from a respiratory standpoint. She denies any current f chalino, chills, nausea, vomiting or chest discomfort. There has been no overnight events. Otherwise, she is returning to her usual state of health. She really responded nicely to the diuretics. PHYSICAL EXAMINATION: VITAL SIGNS: Afebrile, pulse 104, blood pressure 116/68, respirations 18, saturation 95% on 3 liters nasal cannula. GENERAL: Patient is awake, alert, no apparent distress. LUNGS: Much improved air entry. She continues to have prolonged expiratory phase. Today, I hear mo re wheezing. There is also some dependent crackles that are minimally evident. HEART: Tachycardic. Regular. ABDOMEN: Soft, nontender, nondistended. Bowel sounds positive. MUSCULOSKELETAL: No cyanosis or clubbing. No pitting in the bilateral lower extremities. NEUROLOGIC: Grossly nonfocal. LABORATORY DATA: WBC 14.3, hemoglobin 13.7, platelets 271,000. ASSESSMENT: 1. Acute hypoxic respiratory failure. 2. Chronic obstructive pulmonary disease with acute exacerbation. 3. Acute on chronic diastolic heart failure. PLAN: The patient has effectively returned to her usual state of health with diuretics. She does johnson ve advanced COPD. At this point, she indicates that she is returning to her usual state of health. As such, she can be transitioned out of the hospital. Antibiotics can be continued for a total durat ion of 7 days, steroids for 5 days, and she will resume her home inhalers on discharge. I would like for her to see me in clinic when she leaves here within 4-6 weeks.
[2017-09-28] MEDS: Famotidine 20 MG TAB PO SCH (20:49)
[2017-09-28] MEDS: Atorvastatin Calcium 10 MG TAB PO SCH (23:01)
[2017-09-29] MEDS: Cyclobenzaprine 10 MG TAB PO PRN (05:00)
[2017-09-29] MEDS: Acetaminophen 325 MG TAB PO PRN (05:00)
--- NOTE | 2017-09-29 06:12 | PDOC.FM ---
- Objective MAR Reviewed: Yes Vital Signs & Weight: Vital Signs (12 hours) Temp Pulse Resp BP Pulse Ox 09/29/17 04:00 97.6 F 96 18 118/55 L 96 09/29/17 02:23 95 18 97 09/28/17 22:44 87 18 97 09/28/17 19:35 98.3 F 111 H 20 114/67 93 L 09/28/17 18:55 108 H 20 97 Weight Weight 79.832 kg I&O: 09/27/17 09/28/17 09/29/17 06:59 06:59 06:59 Intake Total 1120 1310 1440 Output Total 3650 3300 2100 Balance -2530 -1989 -660 Result Diagrams: 09/27/17 05:30 09/27/17 05:30 EKG Reviewed by me: No Radiology Reviewed by me: No Phys Exam - Physical Examination Constitutional: NAD HEENT: moist MMs, sclera anicteric Neck: supple Cardiovascular: RRR, no significant murmur Gastrointestinal: soft, non-tender, no distention, positive bowel sounds Musculoskeletal: pulses present Neurological: non-focal Psychiatric: A&O x 3 Skin: no rash, cap refill <2 seconds Dx/Plan (1) Acute on chronic respiratory failure with hypoxia Code(s): J96.21 - ACUTE AND CHRONIC RESPIRATORY FAILURE WITH HYPOXIA Status: Acute (2) COPD exacerbation Code(s): J44.1 - CHRONIC OBSTRUCTIVE PULMONARY DISEASE W (ACUTE) EXACERBATION Status: Acute (3) Diabetes mellitus, type II Status: Chronic (4) Hypertension Code(s): I10 - ESSENTIAL (PRIMARY) HYPERTENSION Status: Chronic Qualifiers: Hypertension type: essential hypertension Qualified Code(s): I10 - Essential (primary) hypertension (5) Obesity (BMI 30-39.9) Code(s): E66.9 - OBESITY, UNSPECIFIED Status: Chronic (6) Tobacco abuse Code(s): Z72.0 - TOBACCO USE Status: Chronic - Plan Plan: Plan: Acute hypoxic respiratory failure: - Satting in upper 90's on 2-3 L O2 nasal cannula; baseline - Patient back to baseline - CTA chest ordered to rule out PE due to acid/base status; negative for PE - dCHF on top of COPD; diuresed patient to euvolemia - Echo confirmed grade 1/3 diastolic CHF Tachycardia: - May be secondary to duoneb treatments vs. deconditioning - Continue to monitor on telemetry - Started on metoprolol COPD exacerbation: - Continue oxygen - Continue levoquin for total of 7 days, prednisone for total of 5 days, duonebs - CXR shows chronic lung changes with some possible congestion - Keep O2 between 88 and 94% - Add Spiriva as outpatient dCHF - Confirmed by ECHO - Grade 1/3 dCHF - Diuresed until euvolemic - Continue KENYETTA-I Diabetes Mellitus Type II: - HgA1c 7.8 - BG elevated on Moderate SSI; consider starting levemir - Requiring approximately 8 units of SSI - Started patient on lisinopril and statin - Likely steroid induced - Home meds: metformin; increased to 1000 mg BID HTN - Started on lisinopril Dysuria: - Urinalysis negative, will not treat at this time Dispo: Plan to d/c home today with appropriate antibiotic and steroid regimen
[2017-09-29] MEDS: metFORMIN 500 MG TAB PO SCH (08:51)
[2017-09-29] MEDS: Potassium Chloride 20 MEQ TAB PO SCH (08:51)
[2017-09-29] MEDS: Aspirin 325 MG TAB PO SCH (08:51)
[2017-09-29] MEDS: Enoxaparin Sodium 40 MG/0.4 ML SYRINGE SC SCH (08:52)
[2017-09-29] MEDS: predniSONE 20 MG TAB PO SCH (08:52)
[2017-09-29] MEDS: Lisinopril 2.5 MG TAB PO SCH (08:52)
[2017-09-29] MEDS: Famotidine 20 MG TAB PO SCH (08:52)
[2017-09-29] MEDS: Montelukast Sodium 10 mg Tablet PO SCH (08:53)
[2017-09-29] MEDS ORDERED: Furosemide 20 MG TAB PO SCH (09:00)
--- NOTE | 2017-09-29 11:20 | PRG ---
DATE OF SERVICE: 09/29/2017 SERVICE: Pulmonary Medicine. INTERVAL HISTORY: The patient is doing fantastic from a respiratory standpoint. She is breathing mu ch more comfortably. She denies any current fevers, chills, nausea, vomiting. She has essentially r eturned to her usual state of health. PHYSICAL EXAMINATION: VITAL SIGNS: Afebrile with a T-max of 99.3. Pulse 100, blood pressure 114/60, respirations 20, satu ration 97% on 3 liters nasal cannula. GENERAL: Patient is awake, alert, no apparent distress. LUNGS: Improved air entry, but it still reduced. There is a prolonged expiratory phase. I do hear minimal wheezing. No rhonchi or crackles are appreciated today. HEART: Normal rate, regular. ABDOMEN: Soft, nontender, nondistended. Bowel sounds positive. MUSCULOSKELETAL: No cyanosis or clubbing. No pitting in the bilateral lower extremities. NEUROLOGIC: Grossly nonfocal. ASSESSMENT: 1. Acute hypoxic respiratory failure, resolved. 2. Chronic obstructive pulmonary disease with acute exacerbation. 3. Acute on chronic diastolic heart failure. PLAN: At this point, the patient is stable for transition out of the hospital. Antibiotics, steroid s, nebulized medications will be continued in this interim period if she continues to recover. She c an continue her home inhalers on discharge from the hospital. I will see her back in clinic in 4-6 w eeks. In the meantime, she will need to focus on taking intermittent doses of a water pill in order to maintain her euvolemia.
--- NOTE | 2017-09-29 11:29 | ADD-PRG ---
DATE OF SERVICE: 09/29/2017 This is an addendum to the note of Dr. Cathy Harris. Ms. Werner this morning against continues to feel improved. She is having no difficulty breathing and is at her baseline from a respiratory standpoint. She will be discharged today to follow up with Dr. Glasgow in 4-6 weeks. She will complete a course of prednisone and antibiotics.
[2017-09-29] MEDS ORDERED: Ondansetron ODT 4 MG TAB PO PRN (11:31)
[2017-09-29 15:43] VITALS: BP 101/62; TEMP 97.7
--- NOTE | 2017-09-30 13:53 | DIS-2 ---
DATE OF ADMISSION: 09/25/2017 DATE OF DISCHARGE: 09/29/2017 RESIDENT: Cathy Harris DO ADMITTING ATTENDING: Angel Arias M.D. DISCHARGE ATTENDING: Dandre Negro MD CONSULTATIONS 1. Pulmonology, Dr. José Miguel Glasgow. 2. Cardiac rehabilitation. PROCEDURES: 1. EKG showed sinus tachycardia with possible left atrial enlargement and nonspecific ST and T-wave abnormalities. 2. Echocardiogram showed ejection fraction visually estimated at 60-65% with grade I/III diastolic dysfunction and trace mitral regurgitation. There is also some mild tricuspid regurgitation. 3. Chest x-ray showed some hyperinflation with no acute process. 4. Chest CTA: There were numerous incidental findings, but no evidence for pulmonary embolism. It did show some significant upper lobe emphysematous change bilaterally. PRIMARY DIAGNOSES: 1. Acute on chronic respiratory failure with hypoxia. 2. Chronic obstructive pulmonary disease exacerbation. 3. Grade I/III diastolic congestive heart failure. SECONDARY DIAGNOSES: 1. Diabetes mellitus type 2. 2. Hypertension. 3. Obesity. 4. Tobacco abuse. DISCHARGE MEDICATIONS: 1. Aspirin 325 mg oral every morning with breakfast. 2. Atorvastatin calcium 10 mg oral at bedtime. 3. Levofloxacin 750 mg oral for an additional 2 days upon discharge. 4. Lisinopril 2.5 mg oral daily. 5. Metoprolol succinate 25 mg oral daily. 6. Potassium chloride 40 mEq oral every morning with breakfast. 7. Multivitamin 1 tablet oral daily. 8. Montelukast sodium 10 mg oral daily. 9. Fluticasone/salmeterol two inhalations twice daily. 10. Famotidine 20 mg oral twice daily. 11. Ipratropium 2 puff inhalation four times daily. 12. Albuterol sulfate 0.63 mg nebulizer every 6 hours as needed. 13. Furosemide 20 mg oral daily. 14. Albuterol sulfate 2 puffs inhalation every 6 hours as needed. 15. Metformin 1000 mg oral twice daily with meals. DISCONTINUED MEDICATIONS: 1. Metformin was changed from 500 mg oral twice daily to 1000 mg oral twice daily with meals. 2. Prednisone 20 mg oral daily was discontinued. HISTORY OF PRESENT ILLNESS AND HOSPITAL COURSE: This is a 57-year-old female with past medical history of COPD, who presents with several day history of worsening shortness of breath. The patient failed outpatient treatment on prednisone. After seeing her PCP, Dr. Ptaricia Lance in [place], she then went to the medicine ER on the afternoon prior to admission for chest tightness and inability to take a deep breath. At that time, she was noticed to have increased work of breathing, tachypnea, and tachycardia. She was given Solu- Medrol, DuoNebs x2, and started on Levaquin. She was still having difficulty breathing after these three treatments and was placed on BiPAP. The patient was then transferred here to [facility] in [place], [place]. The patient was admitted to our service. She was placed on BiPAP initially, but was able to be weaned off. Overnight, she was placed on 3 liters nasal cannula which is her baseline oxygen requirement. The patient continued to do well throughout the course of her hospital stay. She made improvements with oral steroids, antibiotics, and continued DuoNeb treatment. It took several days to get the patient back to her baseline; however, on the day of discharge, she felt comfortable to go home with the recommended treatment. The patient has seen Dr. Glasgow, the diabetes specialist in the past although she has not followed with him regularly. There was a concern that she does not have insurance and is unable to get the necessary treatment she needs. Dr. Glasgow scheduled appointment for 4-6 weeks from discharge from hospital. The patient states that she is willing to keep this appointment and follow up accordingly. Of note, the patient likely has undiagnosed sleep apnea and would benefit from a CPAP machine at night; however, due to the fact that she does not have insurance at this time, she states that she is unable to get a sleep study done to get her CPAP covered. The patient would benefit from trying to get insurance in order to get these studies performed. The patient likely has a component of right heart failure secondary to cor pulmonale from severe COPD thus confounding obstructive sleep apnea will only worsen her current state. An echo was performed during this hospitalization which did show grade I/III diastolic dysfunction. The patient did have some fluid overload which was adding to the patient's respiratory distress, thus she was diuresed with 40 mg IV Lasix daily until euvolemic. After achieving euvolemia, the patient did stabilize, and that is when she was noted to be back at her baseline. The patient was notified of this new diagnosis and advised to follow closely with her primary care physician and to ensure that she maintains euvolemic state as she was started on Lasix several weeks ago due to some lower extremity edema. Likely this was an indication of her congestive heart failure. The patient was started on medications for treatment of her congestive heart failure to include an KENYETTA inhibitor and a beta jarek. The patient was also noted to be tachycardic throughout the duration of her hospital stay. It is likely that this tachycardia is her baseline; however, it is worsening her heart failure and adding to her respiratory distress. Metoprolol was added to help lower the heart rate. The patient was noted to be diabetic with a hemoglobin of 7.6. This is likely secondary to chronic steroid use. The patient had been on metformin 500 mg b.i.d. for prediabetes. This dose was increased to 1000 mg b.i.d. It was advised that the patient follow closely with her primary care physician to have medications adjusted appropriately. The patient was observed for several days to ensure that she was stable and not in further respiratory distress. She is followed closely by Dr. Glasgow who agreed with the management decisions. The patient is to follow closely within the next 7 days with her primary care physician in [place] for further management to ensure resolution of symptoms. DISPOSITION: Stable. DISCHARGE INSTRUCTIONS: 1. Location: Home. 2. Activity: As tolerated. 3. Diet: Heart healthy diabetic diet. 4. Followup: The patient is to follow up with her primary care physician, Patricia Lance in [place], [place] within the next 7 days. Additionally, the patient is to follow up with Dr. Glasgow within 4-6 weeks of discharge from hospital. RASHAD
== END 2017-09-29 16:46 | disposition home or self-care (01) | DRG 189 ==
LOC: ERS 18:29 → IMCU/EMU 19:18 → 2NO 09-26 12:40
PROVIDERS: ADMIT Internal Medicine; ATTEND Internal Medicine
PROC: 5A09357 Assistance with Respiratory Ventilation, Less than 24 Consecutive Hours, Continuous Positive Airway Pressure (ICD-10-PCS; principal; 2017-09-25)
DX: J96.21 Acute and chronic respiratory failure with hypoxia (principal); I50.33 Acute on chronic diastolic (congestive) heart failure; E11.22 Type 2 diabetes mellitus with diabetic chronic kidney disease; I27.81 Cor pulmonale (chronic); E11.65 Type 2 diabetes mellitus with hyperglycemia; J44.1 Chronic obstructive pulmonary disease with (acute) exacerbation; I13.0 Hypertensive heart and chronic kidney disease with heart failure and stage 1 through stage 4 chronic kidney disease, or unspecified chronic kidney disease; F17.210 Nicotine dependence, cigarettes, uncomplicated; E78.5 Hyperlipidemia, unspecified; E66.9 Obesity, unspecified; Z68.31 Body mass index [BMI] 31.0-31.9, adult; G47.33 Obstructive sleep apnea (adult) (pediatric); Z88.2 Allergy status to sulfonamides; F32.9 Major depressive disorder, single episode, unspecified; N18.2 Chronic kidney disease, stage 2 (mild); R00.0 Tachycardia, unspecified; T38.0X5A Adverse effect of glucocorticoids and synthetic analogues, initial encounter; R30.0 Dysuria; Z79.52 Long term (current) use of systemic steroids
CPT/HCPCS: 36415; 36416; 71010; 71275; 80053; 80061; 81003; 81015; 82805; 83036; 84443; 84484; 85025; 93005; 93306; 93798; 94640; 94644; 94660; 94760; A4216; J1650; J1940; J7506; J7611; J7620; Q0162; S0028

== ENCOUNTER 2017-10-01 12:17 | Inpatient (IN) | payer SELFPAY ==
--- NOTE | 2017-10-01 13:02 | RAD ---
PORTABLE CHEST: History: Dyspnea. Comparison: 09-26-17 FINDINGS: Density in the left lung base obscuring portions of the left heart border is felt to be secondary to prominent cardiac fat pad which was documented on recent CT chest of 09-26-17. The lungs are clear. T here is no evidence of infiltrate. Heart and mediastinum unremarkable. Vascular markings normal. IMPRESSION: No evidence of acute process. POS: [facility]
[2017-10-01 13:11] LABS: Bilirubin Negative (Negative); Blood, Urine Negative (Negative); Glucose, Urine (Dipstick) Negative (Negative); Ketone, Urine Negative (Negative); Nitrite Negative (Negative); Protein, Urine (Dipstick) Negative (Neg-Trace); Urobilinogen 0.2 mg/dL (0.2-1.0)
[2017-10-01 13:13] LABS: Bacteria/HPF None Seen HPF (None Seen); Hyaline Casts/LPF 0-3 HYALINE CAST LPF (0-3 Hyaline); RBC/HPF 0-3 HPF (0-3); Squamous Epithelial 0-3 HPF (0-3)
[2017-10-01 13:17] LABS: #Eosinphils 0.2 thou/uL (0.0-0.7); #Monocytes 0.7 thou/uL (0.11-0.59); #Neutrophils 13.5 thou/uL (1.40-6.50); %Basophils 0.2 % (0.0-1.0); %Eosinophils 1.3 % (0.0-10.0); %Lymphocytes 6.2 % (21.0-51.0); %Monocytes 4.3 % (0.0-10.0); Hematocrit 44.2 % (36.0-47.0); Mean Platelet Volume 6.6 fL (7.4-10.4); Red Blood Cell (RBC) Count 4.67 mill/uL (4.20-5.40); White Blood Cell (WBC) Count 15.4 thou/uL (4.8-10.8)
[2017-10-01 13:32] LABS: Oxyhemoglobin 94.2 % (94.0-97.0); Sodium 124 mmol/L (135-148)
[2017-10-01 13:33] LABS: Mode NC; Modified Allen's Test POSITIVE; Vent NO
[2017-10-01 13:35] LABS: Lactic Acid - Sepsis 1.7 mmol/L (0.5-2.2)
[2017-10-01 13:39] LABS: ALT (SGPT) 84 U/L (8-55); AST (SGOT) 23 U/L (5-34); Alkaline Phosphatase 58 U/L (40-150); Anion Gap 16 mmol/L (10-20); BUN (Urea Nitrogen) 21 mg/dL (9.8-20.1); Bilirubin, Total 0.6 mg/dL (0.2-1.2); Calc. Creatinine Clearance 0 mL/min (70-130); Calcium 9.5 mg/dL (7.8-10.44); Carbon Dioxide 24 mmol/L (22-29); Chloride 87 mmol/L (98-107); Estimated GFR-MDRD 47; Globulin 2.9 g/dL (2.4-3.5); Protein, Total 6.9 g/dL (6.0-8.3)
[2017-10-01 14:39] LABS: Troponin I Less than 0.010 ng/mL (< 0.028)
[2017-10-01] MEDS ORDERED: PROVENTIL INHALER 6.7 G (200 INHALATIONS) INH PRN (18:37)
[2017-10-01] MEDS ORDERED: Ipratropium Bromide 2.5 ml Neb NEB PRN (18:37)
[2017-10-01] MEDS ORDERED: Dextrose 5% in Water 1,000 ML IV PRN (18:37)
[2017-10-01] MEDS ORDERED: Ondansetron ODT 4 MG TAB PO PRN (18:37)
[2017-10-01] MEDS ORDERED: Bisacodyl 5 MG TAB PO PRN (18:37)
[2017-10-01] MEDS ORDERED: Dextrose 50% Abboject 50 ML SYRINGE SLOW IVP PRN (18:37)
[2017-10-01 18:40] VITALS: BMI 32.2
[2017-10-01] MEDS ORDERED: Enoxaparin Sodium 40 MG/0.4 ML SYRINGE SC SCH (18:45)
[2017-10-01] MEDS: Ipratropium Bromide 2.5 ml Neb NEB SCH ×2 (18:49→22:30)
[2017-10-01] MEDS ORDERED: Azithromycin 250 MG TAB PO SCH (19:00)
[2017-10-01 19:14] LABS: Osmolality, Urine 255 mOsm/kg (300-900)
[2017-10-01] MEDS: Sodium Chloride 0.9% 1,000 ML IV SCH (19:37)
[2017-10-01 19:42] LABS: Sodium, Urine 82 mmol/L (Not Available)
[2017-10-01] MEDS: Montelukast Sodium 10 mg Tablet PO SCH (20:17)
[2017-10-01] MEDS: Famotidine 20 MG TAB PO SCH (20:17)
[2017-10-01] MEDS: Atorvastatin Calcium 10 MG TAB PO SCH (20:18)
[2017-10-01] MEDS ORDERED: Cyclobenzaprine 10 MG TAB PO SCH (21:15)
[2017-10-01] MEDS: Acetaminophen 325 MG TAB PO PRN (21:46)
--- NOTE | 2017-10-02 00:10 | HP-2 ---
CODE STATUS: FULL. PRIMARY CARE PHYSICIAN: Morgan. ATTENDING PHYSICIAN: Victoria Lui MD RESIDENT PHYSICIAN: Cathy Harris DO CHIEF COMPLAINT: Shortness of breath. HISTORY OF PRESENT ILLNESS: This is a 57-year-old female with severe COPD who presents with shortness of breath and weakness over the last few days since being discharged from the hospital. She was recently admitted for severe COPD exacerbation and hospitalized for 5 days. She was treated with antibiotics, steroids, and DuoNebs. The patient improved during last admission and was back to baseline. She was sent home, finished 7-day course of antibiotics, and received a 5-day course of steroids while in the hospital. The patient was sent home on her home meds in addition to a few new medications to include metoprolol, lisinopril, and atorvastatin for newly diagnosed diabetes, as well as, diastolic congestive heart failure. Over the last few days, she has been weak and had several episodes of diarrhea. She denies any chest pain, nausea, or vomiting. The patient was given Solu-Medrol 125 mg and breathing treatments via EMS and has been doing better since the treatment. PAST MEDICAL HISTORY: 1. Severe COPD. 2. Diastolic congestive heart failure, grade 1. 3. Hypertension. 4. Obesity. 5. Hyperlipidemia. 6. Depression. 7. Diabetes mellitus type 2. 8. History of tobacco abuse. PAST SURGICAL HISTORY: 1. Appendectomy. 2. Tubal ligation. ALLERGIES: SULFA. MEDICATIONS: 1. Aspirin 325 mg daily. 2. Atorvastatin 10 mg daily. 3. Lisinopril 2.5 mg daily. 4. Metoprolol succinate 25 mg daily. 5. Potassium chloride 40 mEq daily. 6. Multivitamin. 7. Montelukast 10 mg daily. 8. Fluticasone/salmeterol inhalers b.i.d. 9. Famotidine 20 mg b.i.d. 10. Ipratropium 2 puffs q.i.d. 11. Albuterol nebs. 12. Furosemide 20 mg daily. 13. Metformin 1000 mg b.i.d. FAMILY HISTORY: Noncontributory. SOCIAL HISTORY: Patient has a [id number] history. She did quit one year ago. She denies alcohol or drug use. REVIEW OF SYSTEMS: Twelve-point review of systems was performed, all were negative except as listed in the HPI and as indicated below. The patient endorses nasal congestion, cough, and congestion. She also endorses shortness of breath and orthopnea, which has been chronic. PHYSICAL EXAMINATION: VITAL SIGNS: Blood pressure 105/84, pulse 124, respiration rate 28, T-max 99.5 , pulse ox 96% on 4 liters, currently 82 kilograms. GENERAL: Patient is alert and oriented x4, in no acute distress, obese, appropriately interactive. EYES: Pupils equally round and reactive to light and accommodation. Conjunctivae within normal limits. ENT: Tympanic membranes are pearly fish without bulging or erythema. Nasal mucosa within normal limits. Oropharynx within normal limits. NECK: Supple with no lymphadenopathy or thyromegaly. CARDIOVASCULAR: Patient is tachycardic to the 120s. There is no murmur or gallop. Radial and pedal pulses 2+. RESPIRATORY: Normal respiratory effort. No retractions. Breath sounds are diminished throughout. SKIN: Warm and dry without cyanosis or lesions. ABDOMEN: Soft. Mildly tender to palpation. Bowel sounds positive in all 4 quadrants. No masses or distention. EXTREMITIES: No clubbing or cyanosis. There is trace edema. MUSCULOSKELETAL: Structure within normal limits. Tone within normal limits. The patient has full range of motion. NEUROLOGIC: No focal deficits. Sensation within normal limits. Cranial nerves II through XII intact. GCS 15. PSYCHIATRIC: Appropriate. LABORATORY AND DIAGNOSTIC DATA: 1. CBC reveals a white blood cell count of 15.4, hemoglobin 15.0, hematocrit 44.2, platelets of 213 with 88.1% neutrophils. 2. CMP reveals sodium 123, potassium 3.5, chloride 87, bicarbonate 24, BUN 21, creatinine 1.18, glucose of 193, calcium 9.5, total protein 6.9, albumin 4.0, AST 23, ALT 84, alkaline phosphatase 58, and total bilirubin of 0.6. 3. Influenza A and B negative. 4. D-dimer 0.32. 5. Lactate 1.7. 6. CK-MB 2.5, troponin is less than 0.10. 7. Lipase 22. 8. BNP 27.4. 9. Urine shows small leukocyte esterase, there are only 4 to 6 white blood cells without bacteria or nitrites. 10. ABG shows a pH 7.46, pCO2 of 33, pO2 75.4. 11. Chest x-ray, no acute findings. ASSESSMENT AND PLAN: This is a 57-year-old female with severe chronic obstructive pulmonary disease, who presents with shortness of breath. 1. Severe chronic obstructive pulmonary disease exacerbation. The patient was admitted to telemetry. She did just finish a 7-day course of Levaquin 750 mg. She was given 125 mg Solu-Medrol in the ambulance as well as breathing treatments which has improved her symptoms. We will continue the patient on scheduled DuoNeb and p.r.n. DuoNebs for breakthrough wheezing and shortness of breath. Additionally, we will give patient additional dose of Solu-Medrol this evening and in the morning and then transition her to oral prednisone tomorrow afternoon. Will start patient on azithromycin. We will continue to monitor the patient's respiratory status and try to keep her between 88 to 92% oxygen saturation. 2. Acute kidney injury. We will do mild fluid resuscitation with normal saline at 100 mL per hour. BMP pending. 3. Hypovolemic hyponatremia. Normal saline at 100 mL per hour was started. We will continue to monitor with a.m. BMP. Urine studies pending. There is a question, whether or not patient has been on chronic steroids and thus there is some minor concern for adrenal insufficiency. An a.m. BMP is pending. 4. Diastolic congestive heart failure, grade 1. We will monitor fluid status and do daily weights, strict I's and O's. Gentle fluids for acute kidney injury so as to not give patient too much fluid. 5. Hyperlipidemia. Continue home medications. 6. Diabetes mellitus type 2, likely steroid induced. We will hold metformin at this time due to diarrhea and start the patient on normal sliding scale insulin. 7. Headache. Patient was given flexerol in the hospital last time for what was presumed to be tension headache. This helps a lot, however, I also believe that patient might have a component of headache secondary to obstructive sleep apnea. This needs to be evaluated as an outpatient; however, the patient does not have insurance and states that she cannot have this evaluation done. 8. Deep venous thrombosis prophylaxis, on Lovenox. DISPOSITION AND LENGTH OF HOSPITAL STAY: Two days. Symptomatic medication will be provided. History and physical exam, as well as, management discussed with Dr. Victoria Lui. RASHAD
[2017-10-02] MEDS: Ipratropium Bromide 2.5 ml Neb NEB SCH ×2 (02:31→09:11)
[2017-10-02] MEDS: Sodium Chloride 0.9% 1,000 ML IV SCH (05:15)
[2017-10-02 05:45] LABS: #Eosinphils 0.2 thou/uL (0.0-0.7); #Lymphocytes 0.6 thou/uL (1.20-3.40); #Monocytes 0.6 thou/uL (0.11-0.59); #Neutrophils 5.8 thou/uL (1.40-6.50); %Basophils 0.1 % (0.0-1.0); %Eosinophils 2.6 % (0.0-10.0); %Lymphocytes 8.7 % (21.0-51.0); %Monocytes 7.9 % (0.0-10.0); Hematocrit 39.3 % (36.0-47.0); Mean Platelet Volume 6.5 fL (7.4-10.4); Red Blood Cell (RBC) Count 4.13 mill/uL (4.20-5.40); White Blood Cell (WBC) Count 7.2 thou/uL (4.8-10.8)
[2017-10-02 06:05] LABS: Anion Gap 14 mmol/L (10-20); BUN (Urea Nitrogen) 16 mg/dL (9.8-20.1); Calc. Creatinine Clearance 82 mL/min (70-130); Carbon Dioxide 28 mmol/L (22-29); Chloride 96 mmol/L (98-107); Estimated GFR-MDRD 59
--- NOTE | 2017-10-02 07:38 | PDOC.FM ---
- Subjective Subjective: The patient reports that her SOB has improved significantly since being in the hospital. She still gets winded when she gets up and moves much though. She is able to tolerate PO well. Denies CP. Reports a new dry cough that just started. - Objective MAR Reviewed: Yes Vital Signs & Weight: Vital Signs (12 hours) Temp Pulse Resp BP Pulse Ox 10/02/17 04:00 98.0 F 99 20 131/58 L 94 L 10/02/17 02:31 100 16 95 10/01/17 22:30 107 H 16 95 10/01/17 20:15 98.3 F 124 H 20 127/88 90 L I&O: 10/01/17 10/02/17 10/03/17 06:59 06:59 06:59 Intake Total 1220 Output Total 1900 Balance -680 Result Diagrams: 10/02/17 05:03 10/02/17 05:03 <Chanel Lance - Last Filed: 10/02/17 07:37> - Objective Vital Signs & Weight: Vital Signs (12 hours) Temp Pulse Resp BP BP Pulse Ox 10/02/17 09:10 114 H 16 10/02/17 09:00 96 10/02/17 08:58 117 H 16 10/02/17 07:47 97.4 F L 104 H 20 145/72 H 91 L 10/02/17 04:00 98.0 F 99 20 131/58 L 94 L 10/02/17 02:31 100 16 95 10/01/17 22:30 107 H 16 95 I&O: 10/01/17 10/02/17 10/03/17 06:59 06:59 06:59 Intake Total 1220 Output Total 1900 Balance -680 Result Diagrams: 10/02/17 05:03 10/02/17 05:03 <Laura Brewer - Last Filed: 10/02/17 10:30> Phys Exam - Physical Examination Constitutional: NAD Respiratory: no wheezing Decreased air movement bilaterally Cardiovascular: no significant murmur Tachycardic, regular rhythm Gastrointestinal: soft, non-tender Musculoskeletal: edema present (trace) Neurological: non-focal, moves all 4 limbs Psychiatric: normal affect, A&O x 3 <Chanel Lance - Last Filed: 10/02/17 07:37> Dx/Plan (1) Acute on chronic respiratory failure with hypoxia Code(s): J96.21 - ACUTE AND CHRONIC RESPIRATORY FAILURE WITH HYPOXIA Status: Acute Plan: Patient on 2.5-3L O2 at home 2/2 severe COPD, initially requiring 4L to stay around 92-94% on presentation Improving, she is now satting 90-95% on 3L O2 and resting comfortably -Ipratropium q4h elfego with q2h for breakthrough -Albuterol -Patient is now at baseline O2, no need to wean further (2) COPD exacerbation Code(s): J44.1 - CHRONIC OBSTRUCTIVE PULMONARY DISEASE W (ACUTE) EXACERBATION Status: Acute Plan: Patient was just d/c'd 5 days prior s/p COPD exacerbation. Started feeling poorly one day later -Ipratropium, Albuterol -Solu-medrol, will transition to po prednisone today -Azithromycin -Cont home mucinex, dulera, singulair (3) LORRIE (acute kidney injury) Code(s): N17.9 - ACUTE KIDNEY FAILURE, UNSPECIFIED Status: Acute Plan: This could be 2/2 dehydration Corrected with NS @ 100 mL/hr ouvernight. -Stop fluids today. (4) Hyponatremia Code(s): E87.1 - HYPO-OSMOLALITY AND HYPONATREMIA Status: Acute Plan: This could be 2/2 lasix vs glucocorticoid deficiency 2/2 abrupt withdrawal after chronic use. Per the patient she had been on them for a month prior to hospitalization last time, but then was given a short 5 day course in the hospital and then stopped. She has had issues with stopping prednisone in the past Corrected after getting prednisone, holding lasix, and after getting fluids, which confuses the picture Urine Osm 255, Urine Na 82 (5) Diabetes mellitus, type II Status: Chronic QualifierTitle: Diabetes mellitus complication status: without complication Diabetes mellitus shelter insulin use: without shelter use Qualified Code(s): E11.9 - Type 2 diabetes mellitus without complications Plan: Likely 2/2 chronic steroid use -SSI, diabetic diet -Accuchecks ACHS (6) Hypertension Code(s): I10 - ESSENTIAL (PRIMARY) HYPERTENSION Status: Chronic QualifierTitle: Hypertension type: essential hypertension Qualified Code( s): I10 - Essential (primary) hypertension Plan: Stable, will monitor and continue home meds (7) Obesity (BMI 30-39.9) Code(s): E66.9 - OBESITY, UNSPECIFIED Status: Chronic Plan: Will encourage weight loss Patient could have an element of [place] (8) Heart failure with preserved ejection fraction Code(s): I50.30 - UNSPECIFIED DIASTOLIC (CONGESTIVE) HEART FAILURE Status: Acute Plan: Grade I/III diastolic CHF -Got light fluids overnight, no signs of overload this AM -Stopped fluids -Monitor strict I/O's, daily weights -Fluid restrict -Held lasix/Potassium 2/2 hyponatremia, will restart this tomorrow <Chanel Lance - Last Filed: 10/02/17 07:37> Attending Addendum - Attending Addendum I personally evaluated the patient and discussed the management with Dr. Lance I agree with the History, Examination, Assessment and Plan documented above with any addition or exceptions noted below- 57 year old female with h/o COPD, O2 dependent, dCHF, hyponatremia, DM and recent hospitalization for COPD exacerbation presents c.o increasing SOB for last 2 days. Denies any fever/chills. Finished abx/steroids from last hospitalization. A/P: 1) COPD exacerbation- restarted IV steroids; transition to po tomorrow. Continue nebs, O2. 2) dCHF- continue home meds <Laura Brewer - Last Filed: 10/02/17 10:30>
[2017-10-02] MEDS ORDERED: Potassium Chloride 20 MEQ TAB PO SCH (08:00)
[2017-10-02] MEDS ORDERED: methylPREDNISolone Sod Succ/PF 125 MG/2 ML VIAL IVP SCH (09:00)
[2017-10-02] MEDS: Mometasone/Formoterol 120 PUFF INHALER INH SCH ×2 (09:10→18:48)
[2017-10-02] MEDS: Lisinopril 2.5 MG TAB PO SCH (09:16)
[2017-10-02] MEDS: guaiFENesin ER 600 MG TAB PO SCH ×2 (09:17→20:16)
[2017-10-02] MEDS: Azithromycin 250 MG TAB PO SCH (09:17)
[2017-10-02] MEDS: Multivit, Therapeutic 1 TAB PO SCH (09:17)
[2017-10-02] MEDS: Aspirin 325 MG TAB PO SCH (09:17)
[2017-10-02] MEDS: Famotidine 20 MG TAB PO SCH ×2 (09:17→20:18)
[2017-10-02] MEDS: Enoxaparin Sodium 40 MG/0.4 ML SYRINGE SC SCH (10:31)
[2017-10-02] MEDS ORDERED: methylPREDNISolone Sod Succ/PF 125 MG/2 ML VIAL IVP ONE (18:03)
[2017-10-02] MEDS: Acetaminophen 325 MG TAB PO PRN (18:31)
[2017-10-02] MEDS: HumaLOG 300 UNITS/3 ML VIAL SC PRN (18:32)
[2017-10-02] MEDS: Montelukast Sodium 10 mg Tablet PO SCH (20:16)
[2017-10-02] MEDS: Atorvastatin Calcium 10 MG TAB PO SCH ×2 (20:16→20:17)
[2017-10-02] MEDS ORDERED: Cyclobenzaprine 10 MG TAB PO SCH (20:30)
[2017-10-03 08:06] LABS: Anion Gap 11 mmol/L (10-20); BUN (Urea Nitrogen) 20 mg/dL (9.8-20.1); Calc. Creatinine Clearance 98 mL/min (70-130); Calcium 9.7 mg/dL (7.8-10.44); Carbon Dioxide 29 mmol/L (22-29); Chloride 96 mmol/L (98-107); Estimated GFR-MDRD 70
--- NOTE | 2017-10-03 08:57 | PDOC.FM ---
- Subjective Subjective: Patient reports improved SOB. She Denies extremity swelling and is eating and drinking well. She denies any chest pain. - Objective MAR Reviewed: Yes Vital Signs & Weight: Vital Signs (12 hours) Temp Pulse Resp BP Pulse Ox 10/03/17 07:53 97.5 F L 95 18 113/71 96 10/03/17 04:00 97.6 F 90 20 130/84 97 10/03/17 02:32 94 16 95 10/02/17 22:26 104 H 16 96 Weight Admit Weight 79.832 kg Weight 83.37 kg I&O: 10/02/17 10/03/17 10/04/17 06:59 06:59 06:59 Intake Total 1220 240 Output Total 1900 900 Balance -680 -699 Result Diagrams: 10/02/17 05:03 10/03/17 07:32 <Chanel Lance - Last Filed: 10/03/17 08:55> - Objective Vital Signs & Weight: Vital Signs (12 hours) Temp Pulse Resp BP Pulse Ox 10/03/17 11:53 98 16 10/03/17 09:07 101 H 16 10/03/17 08:56 101 H 16 99 10/03/17 07:53 97.5 F L 95 18 113/71 96 10/03/17 04:00 97.6 F 90 20 130/84 97 10/03/17 02:32 94 16 95 Weight Admit Weight 79.832 kg Weight 83.37 kg I&O: 10/02/17 10/03/17 10/04/17 06:59 06:59 06:59 Intake Total 1220 240 Output Total 1900 900 Balance -680 -052 Result Diagrams: 10/02/17 05:03 10/03/17 07:32 <Laura Brewer - Last Filed: 10/03/17 12:11> Phys Exam - Physical Examination Constitutional: NAD HEENT: moist MMs Respiratory: wheezing present (expiratory wheezes) Cardiovascular: no significant murmur tachycardic, regular rhythm Musculoskeletal: no edema, pulses present Neurological: non-focal, moves all 4 limbs Psychiatric: normal affect, A&O x 3 <Chanel Lance - Last Filed: 10/03/17 08:55> Dx/Plan (1) Acute on chronic respiratory failure with hypoxia Code(s): J96.21 - ACUTE AND CHRONIC RESPIRATORY FAILURE WITH HYPOXIA Status: Acute Plan: Patient on 2.5-3L O2 at home 2/2 severe COPD, initially requiring 4L to stay around 92-94% on presentation Improving, she is now satting 95-97% on 3L O2 and resting comfortably -Duonebs q4h elfego with q2h for breakthrough -Patient is now at baseline O2, no need to wean further (2) COPD exacerbation Code(s): J44.1 - CHRONIC OBSTRUCTIVE PULMONARY DISEASE W (ACUTE) EXACERBATION Status: Acute Plan: Patient was just d/c'd 5 days prior s/p COPD exacerbation. Started feeling poorly one day later -Ipratropium, Albuterol -prednisone -Azithromycin -Cont home advair, singulair (3) LORRIE (acute kidney injury) Code(s): N17.9 - ACUTE KIDNEY FAILURE, UNSPECIFIED Status: Resolved Plan: This was likely 2/2 dehydration, has now resolved Corrected with NS -Now fluid restricting (4) Hyponatremia Code(s): E87.1 - HYPO-OSMOLALITY AND HYPONATREMIA Status: Acute Plan: This could be 2/2 lasix vs glucocorticoid deficiency 2/2 abrupt withdrawal after chronic use. Per the patient she had been on them for a month prior to hospitalization last time, but then was given a short 5 day course in the hospital and then stopped. She has had issues with stopping prednisone in the past Corrected after getting prednisone, holding lasix, and after getting fluids, which confuses the picture Urine Osm 255, Urine Na 82 (5) Diabetes mellitus, type II Status: Chronic QualifierTitle: Diabetes mellitus complication status: without complication Diabetes mellitus assisted insulin use: without assisted use Qualified Code(s): E11.9 - Type 2 diabetes mellitus without complications Plan: Likely 2/2 chronic steroid use -SSI, diabetic diet -Accuchecks ACHS (6) Hypertension Code(s): I10 - ESSENTIAL (PRIMARY) HYPERTENSION Status: Chronic QualifierTitle: Hypertension type: essential hypertension Qualified Code( s): I10 - Essential (primary) hypertension Plan: Stable, will monitor and continue home meds (7) Obesity (BMI 30-39.9) Code(s): E66.9 - OBESITY, UNSPECIFIED Status: Chronic Plan: Will encourage weight loss Patient could have an element of [place] (8) Heart failure with preserved ejection fraction Code(s): I50.30 - UNSPECIFIED DIASTOLIC (CONGESTIVE) HEART FAILURE Status: Acute Plan: Grade I/III diastolic CHF -Monitor strict I/O's, daily weights -Fluid restrict -Restart lasix/potassium this AM <Chanel Lance - Last Filed: 10/03/17 08:55> Attending Addendum - Attending Addendum I personally evaluated the patient and discussed the management with Dr. Lance I agree with the History, Examination, Assessment and Plan documented above with any addition or exceptions noted below- Patient feeling better. Still getting very SOB when she ambulates to the bathroom. Typically she is able to ambulate in her home and do simple tasks. Afebrile VSS A/P: 1) COPD exacerbation - continue nebs, O2, steroids. <Laura Brewer - Last Filed: 10/03/17 12:11>
[2017-10-03] MEDS: Enoxaparin Sodium 40 MG/0.4 ML SYRINGE SC SCH (09:04)
[2017-10-03] MEDS: Potassium Chloride 20 MEQ TAB PO SCH (09:04)
[2017-10-03] MEDS: Aspirin 325 MG TAB PO SCH (09:04)
[2017-10-03] MEDS: Azithromycin 250 MG TAB PO SCH (09:04)
[2017-10-03] MEDS: predniSONE 20 MG TAB PO SCH (09:04)
[2017-10-03] MEDS: guaiFENesin ER 600 MG TAB PO SCH ×2 (09:05→22:08)
[2017-10-03] MEDS: Multivit, Therapeutic 1 TAB PO SCH (09:05)
[2017-10-03] MEDS: Furosemide 20 MG TAB PO SCH (09:05)
[2017-10-03] MEDS: Famotidine 20 MG TAB PO SCH ×2 (09:05→22:09)
[2017-10-03] MEDS: Lisinopril 2.5 MG TAB PO SCH (09:05)
[2017-10-03] MEDS: Mometasone/Formoterol 120 PUFF INHALER INH SCH ×2 (09:07→20:22)
[2017-10-03] MEDS: HumaLOG 300 UNITS/3 ML VIAL SC PRN (17:12)
[2017-10-03] MEDS: Montelukast Sodium 10 mg Tablet PO SCH ×2 (22:09→22:13)
[2017-10-03] MEDS ORDERED: Cyclobenzaprine 10 MG TAB PO SCH (22:45)
[2017-10-04 05:36] LABS: Anion Gap 12 mmol/L (10-20); BUN (Urea Nitrogen) 16 mg/dL (9.8-20.1); Calc. Creatinine Clearance 102 mL/min (70-130); Carbon Dioxide 28 mmol/L (22-29); Chloride 98 mmol/L (98-107); Estimated GFR-MDRD 73
--- NOTE | 2017-10-04 08:32 | PDOC.FM ---
- Subjective Subjective: Patient reports that her SOB is at her baseline when she is at rest, but she cannot get up and move around without significant SOB that is not her baseline. She states that before she was hospitalized about a week and a half ago she was able to get up and walk around her house without SOB, but she cannot do that now. She feels congested and thinks the mucinex is helping with that. She denies any chest pain. She denies swelling in her legs. She is tolerating PO well. She reports that she worked with PT yesterday. - Objective MAR Reviewed: Yes Vital Signs & Weight: Vital Signs (12 hours) Temp Pulse Resp BP Pulse Ox 10/04/17 04:00 97.6 F 93 16 103/62 97 10/04/17 02:44 94 L 10/03/17 22:34 95 Weight Admit Weight 79.832 kg Weight 84.822 kg I&O: 10/03/17 10/04/17 10/05/17 06:59 06:59 06:59 Intake Total 240 1660 Output Total 900 2501 Balance -660 -841 Result Diagrams: 10/02/17 05:03 10/04/17 04:24 <Chanel Lance - Last Filed: 10/04/17 08:30> - Objective Vital Signs & Weight: Vital Signs (12 hours) Temp Pulse Pulse Resp BP BP BP 10/04/17 09:59 105 H 125/91 H 10/04/17 08:54 99 16 10/04/17 08:46 10/04/17 08:45 99 16 10/04/17 08:00 97.3 F L 105 H 20 10/04/17 07:43 108 H 123/71 10/04/17 04:00 97.6 F 93 16 103/62 10/04/17 02:44 BP Pulse Ox Pulse Ox 10/04/17 09:59 10/04/17 08:54 10/04/17 08:46 99 10/04/17 08:45 10/04/17 08:00 125/91 H 98 10/04/17 07:43 93 L 10/04/17 04:00 97 10/04/17 02:44 94 L Weight Admit Weight 79.832 kg Weight 84.822 kg I&O: 10/03/17 10/04/17 10/05/17 06:59 06:59 06:59 Intake Total 240 1660 Output Total 900 2501 Balance -660 -841 Result Diagrams: 10/02/17 05:03 10/04/17 04:24 <Angelito Min - Last Filed: 10/04/17 11:54> Phys Exam - Physical Examination Constitutional: NAD (on 3L O2) HEENT: moist MMs Respiratory: no wheezing, no rales, no rhonchi diminished breath sounds Cardiovascular: RRR, no significant murmur, no rub Gastrointestinal: soft, non-tender, no distention Musculoskeletal: no edema, pulses present Neurological: non-focal, moves all 4 limbs Psychiatric: normal affect, A&O x 3 <Chanel Lance - Last Filed: 10/04/17 08:30> Dx/Plan (1) Acute on chronic respiratory failure with hypoxia Code(s): J96.21 - ACUTE AND CHRONIC RESPIRATORY FAILURE WITH HYPOXIA Status: Acute Plan: Patient on 2.5-3L O2 at home 2/2 severe COPD, initially requiring 4L to stay around 92-94% on presentation Improving, she is now satting 95-97% on 3L O2 and resting comfortably -Duonebs q4h elfego with q2h for breakthrough -Patient is now at baseline O2, no need to wean further, but is unable to function at baseline activity level without significant SOB (2) COPD exacerbation Code(s): J44.1 - CHRONIC OBSTRUCTIVE PULMONARY DISEASE W (ACUTE) EXACERBATION Status: Acute Plan: Patient was just d/c'd 5 days prior s/p COPD exacerbation. Started feeling poorly one day later -Ipratropium, Albuterol -Prednisone -Azithromycin day 4 -Cont home meds (3) LORRIE (acute kidney injury) Code(s): N17.9 - ACUTE KIDNEY FAILURE, UNSPECIFIED Status: Resolved Plan: This was likely 2/2 dehydration, has now resolved Corrected with NS -Now fluid restricting (4) Hyponatremia Code(s): E87.1 - HYPO-OSMOLALITY AND HYPONATREMIA Status: Acute Plan: This could be 2/2 lasix vs glucocorticoid deficiency 2/2 abrupt withdrawal after chronic use. Per the patient she had been on them for a month prior to hospitalization last time, but then was given a short 5 day course in the hospital and then stopped. She has had issues with stopping prednisone in the past Improved after getting prednisone, holding lasix, and after getting fluids, which confuses the picture Urine Osm 255, Urine Na 82 Na improving to 134 today (5) Diabetes mellitus, type II Status: Chronic QualifierTitle: Diabetes mellitus complication status: without complication Diabetes mellitus usp insulin use: without usp use Qualified Code(s): E11.9 - Type 2 diabetes mellitus without complications Plan: Likely 2/2 chronic steroid use -SSI, diabetic diet -Accuchecks ACHS (6) Hypertension Code(s): I10 - ESSENTIAL (PRIMARY) HYPERTENSION Status: Chronic QualifierTitle: Hypertension type: essential hypertension Qualified Code( s): I10 - Essential (primary) hypertension Plan: Stable, will monitor and continue home meds (7) Obesity (BMI 30-39.9) Code(s): E66.9 - OBESITY, UNSPECIFIED Status: Chronic Plan: Will encourage weight loss Patient could have an element of [place], which is worsening her breathing status (8) Heart failure with preserved ejection fraction Code(s): I50.30 - UNSPECIFIED DIASTOLIC (CONGESTIVE) HEART FAILURE Status: Acute Plan: Grade I/III diastolic CHF -Monitor strict I/O's, daily weights -Fluid restrict -Cont Lasix/Potassium <Chanel Lance - Last Filed: 10/04/17 08:30> Attending Addendum - Attending Addendum I personally evaluated the patient and discussed the management with Dr. Lance. I agree with the History, Examination, Assessment and Plan documented above with any addition or exceptions noted below. Patient continues to not make significant improvement. She continues to experience shortness of breath with minimal activity. Will increase steroid dose and repeat CXR to make sure she does not have any progressive infiltrate. Will also review medications and ensure her COPD regimen is maximized. <Angelito Min - Last Filed: 10/04/17 11:54>
[2017-10-04] MEDS: Mometasone/Formoterol 120 PUFF INHALER INH SCH ×2 (08:54→20:19)
[2017-10-04] MEDS: Azithromycin 250 MG TAB PO SCH (09:58)
[2017-10-04] MEDS: Aspirin 325 MG TAB PO SCH (09:58)
[2017-10-04] MEDS: Potassium Chloride 20 MEQ TAB PO SCH (09:58)
[2017-10-04] MEDS: guaiFENesin ER 600 MG TAB PO SCH ×2 (09:58→21:10)
[2017-10-04] MEDS: predniSONE 20 MG TAB PO SCH (09:58)
[2017-10-04] MEDS: Lisinopril 2.5 MG TAB PO SCH (09:59)
[2017-10-04] MEDS: Multivit, Therapeutic 1 TAB PO SCH (09:59)
[2017-10-04] MEDS: Furosemide 20 MG TAB PO SCH (09:59)
[2017-10-04] MEDS: Famotidine 20 MG TAB PO SCH ×2 (09:59→21:11)
[2017-10-04] MEDS: Enoxaparin Sodium 40 MG/0.4 ML SYRINGE SC SCH (10:01)
[2017-10-04] MEDS: Acetaminophen 325 MG TAB PO PRN ×2 (11:29→21:10)
[2017-10-04] MEDS ORDERED: predniSONE 20 MG TAB PO SCH (11:30)
--- NOTE | 2017-10-04 15:20 | RAD ---
CHEST TWO VIEWS: HISTORY: Cough. Dyspnea. COMPARISON: 10/01/2017. FINDINGS: Cardiac silhouette and pulmonary vasculature are unremarkable. Lungs are hyperinflated with flattenin g of each hemidiaphragm. Parenchymal scarring is present at each base. Mediastinum is midline. The re is no evidence of pneumothorax, pleural fluid, or lobar consolidation. diesel mechanic construction leads over lie the chest. IMPRESSION: Dyspnea. POS: FARHAT
[2017-10-04] MEDS: HumaLOG 300 UNITS/3 ML VIAL SC PRN (18:28)
[2017-10-04] MEDS: Cyclobenzaprine 10 MG TAB PO SCH (21:11)
[2017-10-04] MEDS: Atorvastatin Calcium 10 MG TAB PO SCH ×2 (21:11→22:05)
[2017-10-04] MEDS: Montelukast Sodium 10 mg Tablet PO SCH (21:11)
[2017-10-05 05:31] LABS: Anion Gap 11 mmol/L (10-20); BUN (Urea Nitrogen) 16 mg/dL (9.8-20.1); Calc. Creatinine Clearance 111 mL/min (70-130); Calcium 9.6 mg/dL (7.8-10.44); Carbon Dioxide 29 mmol/L (22-29); Chloride 96 mmol/L (98-107); Estimated GFR-MDRD 79
[2017-10-05] MEDS: Mometasone/Formoterol 120 PUFF INHALER INH SCH ×2 (08:08→18:57)
[2017-10-05] MEDS: Potassium Chloride 20 MEQ TAB PO SCH (08:35)
[2017-10-05] MEDS: predniSONE 20 MG TAB PO SCH (08:35)
[2017-10-05] MEDS: Famotidine 20 MG TAB PO SCH ×2 (08:36→21:12)
[2017-10-05] MEDS: Azithromycin 250 MG TAB PO SCH (08:36)
[2017-10-05] MEDS: Multivit, Therapeutic 1 TAB PO SCH (08:36)
[2017-10-05] MEDS: Furosemide 20 MG TAB PO SCH (08:36)
--- NOTE | 2017-10-05 08:36 | PDOC.FM ---
- Subjective Subjective: Patient's breathing status is much improved this AM. She reports that she was able to go to the bathroom without much increase in SOB. She states that the increase in steroids really helped with her breathing. She feels ready to go home today. She denies any chest pain or increase in sputum production. She denies any leg swelling. - Objective MAR Reviewed: Yes Vital Signs & Weight: Vital Signs (12 hours) Temp Pulse Resp BP Pulse Ox 10/05/17 08:09 99 10/05/17 08:08 100 18 93 L 10/05/17 08:07 88 16 99 10/05/17 04:12 93 L 10/05/17 04:00 97.6 F 89 18 129/62 100 10/05/17 02:37 82 18 98 10/04/17 22:50 89 18 96 Weight Admit Weight 79.832 kg Weight 80.286 kg I&O: 10/04/17 10/05/17 10/06/17 06:59 06:59 06:59 Intake Total 1660 1080 Output Total 2501 2700 Balance -844 -1814 Result Diagrams: 10/02/17 05:03 10/05/17 04:21 <Chanel Lance - Last Filed: 10/05/17 08:33> - Objective Vital Signs & Weight: Vital Signs (12 hours) Temp Pulse Resp BP BP BP Pulse Ox 10/05/17 11:05 100 18 92 L 10/05/17 08:38 105 H 132/79 10/05/17 08:09 99 10/05/17 08:08 100 18 93 L 10/05/17 08:07 88 16 99 10/05/17 08:00 98.5 F 102 H 18 132/79 99 10/05/17 04:12 93 L 10/05/17 04:00 97.6 F 89 18 129/62 100 10/05/17 02:37 82 18 98 Weight Admit Weight 79.832 kg Weight 80.286 kg I&O: 10/04/17 10/05/17 10/06/17 06:59 06:59 06:59 Intake Total 1660 1080 Output Total 2501 2700 Balance -841 1620 Result Diagrams: 10/02/17 05:03 10/05/17 04:21 <Angelito Min - Last Filed: 10/05/17 12:31> Phys Exam - Physical Examination Constitutional: NAD HEENT: moist MMs Respiratory: no wheezing, no rales, no rhonchi, clear to auscultation bilateral Cardiovascular: RRR, no significant murmur, no rub, gallop Gastrointestinal: soft, non-tender, no distention, positive bowel sounds Musculoskeletal: no edema, pulses present Neurological: non-focal, moves all 4 limbs Psychiatric: normal affect, A&O x 3 <Chanel Lance - Last Filed: 10/05/17 08:33> Dx/Plan (1) Acute on chronic respiratory failure with hypoxia Code(s): J96.21 - ACUTE AND CHRONIC RESPIRATORY FAILURE WITH HYPOXIA Status: Acute Plan: Patient on 2.5-3L O2 at home 2/2 severe COPD, initially requiring 4L to stay around 92-94% on presentation Improving, she is now satting 93-100% on 3L O2 and resting comfortably. The 93% was just after PT worked with her. -Duonebs q4h elfego with q2h for breakthrough -Patient is now at baseline O2, no need to wean further. Would likely benefit from PT (2) COPD exacerbation Code(s): J44.1 - CHRONIC OBSTRUCTIVE PULMONARY DISEASE W (ACUTE) EXACERBATION Status: Acute Plan: Patient was just d/c'd 5 days prior s/p COPD exacerbation. Started feeling poorly one day later -Ipratropium, Albuterol -Prednisone was increased yesterday to 80mg and the patient improved. -Azithromycin day 5 -Cont home meds -Pt would benefit from [facility], she currently gets her inhalers from a program through [facility]. Will have case management discuss with her if this one would be an option (3) LORRIE (acute kidney injury) Code(s): N17.9 - ACUTE KIDNEY FAILURE, UNSPECIFIED Status: Resolved Plan: This was likely 2/2 dehydration, has now resolved Corrected with NS -Now fluid restricting (4) Hyponatremia Code(s): E87.1 - HYPO-OSMOLALITY AND HYPONATREMIA Status: Acute Plan: This could be 2/2 lasix vs glucocorticoid deficiency 2/2 abrupt withdrawal after chronic use. Per the patient she had been on them for a month prior to hospitalization last time, but then was given a short 5 day course in the hospital and then stopped. She has had issues with stopping prednisone in the past Improved after getting prednisone, holding lasix, and after getting fluids, which confuses the picture Urine Osm 255, Urine Na 82 (5) Diabetes mellitus, type II Status: Chronic QualifierTitle: Diabetes mellitus complication status: without complication Diabetes mellitus alf insulin use: without marine oil terminal superintendent use Qualified Code(s): E11.9 - Type 2 diabetes mellitus without complications Plan: Likely 2/2 chronic steroid use -SSI, diabetic diet -Accuchecks ACHS (6) Hypertension Code(s): I10 - ESSENTIAL (PRIMARY) HYPERTENSION Status: Chronic QualifierTitle: Hypertension type: essential hypertension Qualified Code( s): I10 - Essential (primary) hypertension Plan: Stable, will monitor and continue home meds (7) Obesity (BMI 30-39.9) Code(s): E66.9 - OBESITY, UNSPECIFIED Status: Chronic Plan: Will encourage weight loss Patient could have an element of [place], which is worsening her breathing status (8) Heart failure with preserved ejection fraction Code(s): I50.30 - UNSPECIFIED DIASTOLIC (CONGESTIVE) HEART FAILURE Status: Acute Plan: Grade I/III diastolic CHF -Monitor strict I/O's, daily weights -Fluid restrict -Cont Lasix/Potassium <Chanel Lance - Last Filed: 10/05/17 08:33> Attending Addendum - Attending Addendum I personally evaluated the patient and discussed the management with Dr. Lance. I agree with the History, Examination, Assessment and Plan documented above with any addition or exceptions noted below. Patient with significant improvement in symptoms with escalation of steroid therapy. She has been able to ambulate around the room better with less dyspnea. She wants to go home. We will monitor through the day and ensure she still feels ready to go, and consider discharge at that time. She does have early follow up with PCP already scheduled. Will need prolonged steroid taper. Reassess symptoms this afternoon. <Angelito Min - Last Filed: 10/05/17 12:31>
[2017-10-05] MEDS: Aspirin 325 MG TAB PO SCH (08:38)
[2017-10-05] MEDS: Lisinopril 2.5 MG TAB PO SCH (08:38)
[2017-10-05] MEDS: guaiFENesin ER 600 MG TAB PO SCH ×2 (08:39→21:13)
[2017-10-05] MEDS: Enoxaparin Sodium 40 MG/0.4 ML SYRINGE SC SCH (08:39)
[2017-10-05] MEDS: Acetaminophen 325 MG TAB PO PRN ×2 (13:21→21:16)
[2017-10-05] MEDS: HumaLOG 300 UNITS/3 ML VIAL SC PRN (18:17)
[2017-10-05] MEDS: Cyclobenzaprine 10 MG TAB PO SCH (21:12)
[2017-10-05] MEDS: Atorvastatin Calcium 10 MG TAB PO SCH (21:12)
[2017-10-05] MEDS: Montelukast Sodium 10 mg Tablet PO SCH (21:13)
[2017-10-06 06:58] LABS: Anion Gap 13 mmol/L (10-20); BUN (Urea Nitrogen) 16 mg/dL (9.8-20.1); Calc. Creatinine Clearance 100 mL/min (70-130); Calcium 10.3 mg/dL (7.8-10.44); Carbon Dioxide 28 mmol/L (22-29); Chloride 100 mmol/L (98-107); Estimated GFR-MDRD 74
[2017-10-06] MEDS: Mometasone/Formoterol 120 PUFF INHALER INH SCH (07:17)
[2017-10-06] MEDS: Enoxaparin Sodium 40 MG/0.4 ML SYRINGE SC SCH (08:15)
[2017-10-06] MEDS: Potassium Chloride 20 MEQ TAB PO SCH (08:16)
[2017-10-06] MEDS: Aspirin 325 MG TAB PO SCH (08:16)
[2017-10-06] MEDS: predniSONE 20 MG TAB PO SCH (08:16)
[2017-10-06] MEDS: Lisinopril 2.5 MG TAB PO SCH (08:17)
[2017-10-06] MEDS: Multivit, Therapeutic 1 TAB PO SCH (08:17)
[2017-10-06] MEDS: guaiFENesin ER 600 MG TAB PO SCH (08:17)
[2017-10-06] MEDS: Furosemide 20 MG TAB PO SCH (08:17)
[2017-10-06] MEDS: Famotidine 20 MG TAB PO SCH (08:17)
--- NOTE | 2017-10-06 08:38 | PDOC.FM ---
- Subjective Subjective: Patient feeling better this AM. She reports that she feels less SOB today. She feels like her lungs have started to open up. She feels as though she can walk further without getting SOB. She is producing less sputum with her cough. She denies any fever or chest pain. - Objective MAR Reviewed: Yes Vital Signs & Weight: Vital Signs (12 hours) Temp Pulse Resp BP Pulse Ox 10/06/17 08:17 103 H 10/06/17 08:14 98.0 F 103 H 16 139/67 97 10/06/17 07:20 99 10/06/17 07:19 89 18 99 10/06/17 07:17 89 18 99 10/06/17 05:17 97.8 F 89 15 120/63 97 10/06/17 02:37 83 16 99 10/05/17 22:37 87 16 97 Weight Admit Weight 79.832 kg Weight 80.286 kg I&O: 10/05/17 10/06/17 10/07/17 06:59 06:59 06:59 Intake Total 1080 500 Output Total 2700 2400 Balance -1620 -1900 Result Diagrams: 10/02/17 05:03 10/06/17 05:41 <Chanel Lance - Last Filed: 10/06/17 08:36> - Objective Vital Signs & Weight: Vital Signs (12 hours) Temp Pulse Pulse Pulse Resp BP BP 10/06/17 10:48 82 16 10/06/17 09:30 103 H 99 129/82 143/81 H 10/06/17 08:17 103 H 10/06/17 08:14 98.0 F 103 H 16 10/06/17 07:20 10/06/17 07:19 89 18 10/06/17 07:17 89 18 10/06/17 05:17 97.8 F 89 15 10/06/17 02:37 83 16 BP Pulse Ox Pulse Ox Pulse Ox 10/06/17 10:48 99 10/06/17 09:30 92 L 95 10/06/17 08:17 10/06/17 08:14 139/67 97 10/06/17 07:20 99 10/06/17 07:19 99 10/06/17 07:17 99 10/06/17 05:17 120/63 97 10/06/17 02:37 99 Weight Admit Weight 79.832 kg Weight 80.286 kg I&O: 10/05/17 10/06/17 10/07/17 06:59 06:59 06:59 Intake Total 1080 500 Output Total 2700 2400 Balance -1620 -1900 Result Diagrams: 10/02/17 05:03 10/06/17 05:41 <MinAngelito awan Tra - Last Filed: 10/06/17 12:02> Phys Exam - Physical Examination Constitutional: NAD HEENT: moist MMs Respiratory: no rales, no rhonchi, wheezing present (bilaterally) Cardiovascular: RRR, no significant murmur Gastrointestinal: soft, non-tender, no distention Musculoskeletal: no edema, pulses present Neurological: non-focal, moves all 4 limbs Psychiatric: normal affect, A&O x 3 <Chanel Lance - Last Filed: 10/06/17 08:36> Dx/Plan (1) Acute on chronic respiratory failure with hypoxia Code(s): J96.21 - ACUTE AND CHRONIC RESPIRATORY FAILURE WITH HYPOXIA Status: Acute Plan: Patient on 2.5-3L O2 at home 2/2 severe COPD, initially requiring 4L to stay around 92-94% on presentation Improving, she is now satting 93-100% on 3L O2 and resting comfortably. -Duonebs q4h elfego with q2h for breakthrough -Patient is now at baseline O2, no need to wean further. Would likely benefit from PT, but unable to get home health due to no funding. (2) COPD exacerbation Code(s): J44.1 - CHRONIC OBSTRUCTIVE PULMONARY DISEASE W (ACUTE) EXACERBATION Status: Acute Plan: Patient was just d/c'd 5 days prior s/p COPD exacerbation. Started feeling poorly one day later -Ipratropium, Albuterol -Prednisone was increased yesterday to 80mg and the patient improved. -Azithromycin 5 day course completed -Cont home meds -Pt would benefit from Spiriva, will discharge her with this (3) LORRIE (acute kidney injury) Code(s): N17.9 - ACUTE KIDNEY FAILURE, UNSPECIFIED Status: Resolved Plan: This was likely 2/2 dehydration, has now resolved Corrected with NS -Now fluid restricting (4) Hyponatremia Code(s): E87.1 - HYPO-OSMOLALITY AND HYPONATREMIA Status: Acute Plan: This could be 2/2 lasix vs glucocorticoid deficiency 2/2 abrupt withdrawal after chronic use. Per the patient she had been on them for a month prior to hospitalization last time, but then was given a short 5 day course in the hospital and then stopped. She has had issues with stopping prednisone in the past Improved after getting prednisone, holding lasix, and after getting fluids, which confuses the picture Urine Osm 255, Urine Na 82 (5) Diabetes mellitus, type II Status: Chronic QualifierTitle: Diabetes mellitus complication status: without complication Diabetes mellitus long-term insulin use: without long-term use Qualified Code(s): E11.9 - Type 2 diabetes mellitus without complications Plan: Likely 2/2 chronic steroid use -SSI, diabetic diet -Accuchecks ACHS (6) Hypertension Code(s): I10 - ESSENTIAL (PRIMARY) HYPERTENSION Status: Chronic QualifierTitle: Hypertension type: essential hypertension Qualified Code( s): I10 - Essential (primary) hypertension Plan: Stable, will monitor and continue home meds (7) Obesity (BMI 30-39.9) Code(s): E66.9 - OBESITY, UNSPECIFIED Status: Chronic Plan: Will encourage weight loss Patient could have an element of [place], which is worsening her breathing status (8) Heart failure with preserved ejection fraction Code(s): I50.30 - UNSPECIFIED DIASTOLIC (CONGESTIVE) HEART FAILURE Status: Acute Plan: Grade I/III diastolic CHF -Monitor strict I/O's, daily weights -Fluid restrict -Cont Lasix/Potassium - Plan Plan: Will likely d/c patient today on extended prednisone taper and Spiriva as well as patient's home inhalers. <Chanel Lance - Last Filed: 10/06/17 08:36> Attending Addendum - Attending Addendum I personally evaluated the patient and discussed the management with Dr. Lance. I agree with the History, Examination, Assessment and Plan documented above with any addition or exceptions noted below. Patient continues to feel improved. She is ready to go home. Will discharge on prolonged steroid taper and with paperwork for patient assistance with Spiriva Rx. She has appointment with PCP tomorrow. On home baseline O2 requirement. <Angelito Min - Last Filed: 10/06/17 12:02>
[2017-10-06] MEDS: HumaLOG 300 UNITS/3 ML VIAL SC PRN (11:25)
[2017-10-06 12:22] VITALS: BP 110/75; TEMP 97.5
--- NOTE | 2017-10-07 14:20 | DIS-2 ---
DATE OF ADMISSION: 10/01/2017 DATE OF DISCHARGE: 10/06/2017 ADMITTING RESIDENT: Cathy Harris DO DISCHARGE RESIDENT: Chanel Lance MD ADMITTING ATTENDING: Victoria Lui M.D. DISCHARGE ATTENDING: Angelito Min MD CONSULTATIONS: None. PROCEDURES: None. IMAGIN. Chest x-ray showed no evidence of acute process. 2. Repeat chest x-ray showed lungs are hyperinflated with flattening in each hemidiaphragm. No evidence of acute process. PRIMARY DIAGNOSES: 1. Acute hypoxic respiratory failure secondary to chronic obstructive pulmonary disease exacerbation. 2. Chronic obstructive pulmonary disease exacerbation. 3. Acute kidney injury. 4. Hypovolemic hyponatremia. SECONDARY DIAGNOSES: 1. Diabetes type 2. 2. Hypertension. 3. Obesity. 4. Heart failure with preserved ejection fraction, grade I. 5. Hyperlipidemia. DISCHARGE MEDICATIONS: 1. Spiriva Respimat 2 puffs inhaled daily. 2. Albuterol ProAir HFA 2 puffs inhaled q.6 hours p.r.n. shortness of breath or wheezing. 3. Aspirin 325 mg q.a.m. with meals. 4. Atorvastatin 10 mg p.o. at bedtime. 5. Pepcid 20 mg p.o. b.i.d. 6. Advair HFA 115/21 two inhaled b.i.d. 7. Lasix 20 mg p.o. daily. 8. Atrovent 2 puffs inhaled q.i.d. 9. Lisinopril 2.5 mg p.o. daily. 10. Metformin 1000 mg p.o. b.i.d. with meals. 11. Metoprolol 25 mg p.o. daily. 12. Singulair 10 mg p.o. daily. 13. Multivitamin 1 tablet p.o. daily. 14. Potassium chloride 40 mEq p.o. q.a.m. with meals. DISCONTINUED MEDICATIONS: None. HISTORY OF PRESENT ILLNESS AND HOSPITAL COURSE: This is a 57-year-old female with history of severe COPD, who presented due to COPD exacerbation. She had been recently discharged from the hospital only 5 days prior due to COPD disease exacerbation, at that time prior hospitalization, she had been treated with a 5-day course of prednisone as well as Levaquin. The patient reported that she felt bad the day after discharge. She reports that she had been chronically on steroids over the last year on and off, but for the last month leading up to hospitalization, she has been on a steroid taper and so the abrupt discontinuation of steroids she believes really affected her. The patient tried to stay at home without going to the hospital, but continued to get worse over the next 5 days with increased sputum production and increased oxygen requirement although the patient is on 3 liters of oxygen at home already until the patient finally decided to return to the emergency room. The patient was found to initially have an oxygen requirement of 4 liters and the patient responded very quickly to steroids. The patient was given Solu-Medrol 125 b.i.d. and then was switched to oral prednisone. The patient was started on a 5-day course of azithromycin. The patient's prednisone was initially started at 40 mg, but after 2 days and the patient was not improving very much, this was increased to 80 mg and the patient showed remarkable improvement with this. The patient was also given Mucinex for congestion. She did initially have an elevated white count of 15.4, but this resolved to 7.2. She also was initially hyponatremic to 132, which improved after getting the prednisone which could be due to that or it could be due to getting fluids. Initially, the patient had an acute kidney injury with creatinine of 1.18 and GFR 47. This improved after some fluids. The fluids were then stopped shortly after that due to the patient's history of congestive heart failure. The patient never had any signs or symptoms of fluid overload. The patient had her Lasix held the first day, but this was restarted on her second day of hospitalization. The patient received DuoNebs q.4 hours and q.2 hours as needed as well as her home meds. Upon discharge, it was decided to start the patient on Spiriva and the patient was set up with a program where she could potentially get Spiriva for free or very cheap. The patient reported that she was on her last day of hospitalization, able to get up and move around onto the bathroom and around without much increased shortness of breath on her home oxygen requirement, which was encouraging. The patient was discharged home on a very limiting steroid taper over the course of 1 month. She had completed her course of azithromycin by the end of her hospitalization, and she was not discharged on any antibiotics. The patient will need close followup for her COPD, and the patient reports that she has an appointment scheduled already with [facility] one day prior to discharge as well as an appointment with Dr. Glasgow with Pulmonology in October. This was encouraging as her COPD is being closely followed. DISPOSITION: Stable. DISCHARGE INSTRUCTIONS: 1. Location: Home. 2. Diet: Heart healthy and diabetic with 1500 mL fluid restriction. 3. Activity as tolerated. [facility] RASHAD
--- NOTE | 2017-10-16 13:32 | EKG ---
Test Reason : STTT Blood Pressure : / mmHG Vent. Rate : 114 BPM Atrial Rate : 114 BPM P-R Int : 148 ms QRS Dur : 068 ms QT Int : 306 ms P-R-T Axes : 081 050 067 degrees QTc Int : 421 ms Sinus tachycardia Otherwise normal ECG When compared with ECG of 25-SEP-2017 18:57, No significant change was found Confirmed by KAREY ALBERTO MD ([id number]) on 10/16/2017 1:32:27 PM Referred By: Confirmed By:KAREY ALBERTO MD
--- NOTE | 2017-10-16 15:00 | EKG ---
Test Reason : Blood Pressure : / mmHG Vent. Rate : 130 BPM Atrial Rate : 130 BPM P-R Int : 150 ms QRS Dur : 064 ms QT Int : 292 ms P-R-T Axes : 050 053 064 degrees QTc Int : 429 ms Sinus tachycardia Otherwise normal ECG Confirmed by DUSTIN LIU D.O. ([id number]), graphic editor OSMAN BROWN ([id number]) on 10/16/2017 2:59:23 PM Referred By: NIKOLAY Confirmed By:DUSTIN LIU D.O.
== END 2017-10-06 15:30 | disposition home or self-care (01) | DRG 190 ==
LOC: ERS 12:17 → 2NO 16:50
PROVIDERS: ADMIT Family Medicine; ATTEND Family Medicine
DX: J44.1 Chronic obstructive pulmonary disease with (acute) exacerbation (principal); J96.21 Acute and chronic respiratory failure with hypoxia; N17.9 Acute kidney failure, unspecified; E87.1 Hypo-osmolality and hyponatremia; I50.30 Unspecified diastolic (congestive) heart failure; I11.0 Hypertensive heart disease with heart failure; E11.9 Type 2 diabetes mellitus without complications; E78.5 Hyperlipidemia, unspecified; E66.9 Obesity, unspecified; E86.0 Dehydration; R51 Headache; Z68.32 Body mass index [BMI] 32.0-32.9, adult; Z87.891 Personal history of nicotine dependence; Z88.2 Allergy status to sulfonamides; Z79.82 Long term (current) use of aspirin; Z99.81 Dependence on supplemental oxygen
CPT/HCPCS: 36415; 36416; 71010; 71020; 80048; 80053; 81003; 81015; 82553; 82805; 83605; 83690; 83880; 83935; 84300; 84484; 85025; 85379; 87040; 87077; 87086; 93005; 93010; 94640; 94664; 94760; G8978-GP-CL; G8979-GP-CJ; G8987-GO-CI; G8988-GO-CI; G8989-GO-CI; J1650; J2930; J7506; J7620; J7644

== ENCOUNTER 2018-06-12 23:04 | Inpatient (IN) | payer SELFPAY ==
[2018-06-13] MEDS ORDERED: Morphine 4 MG/ML VIAL ONE (00:34)
[2018-06-13] MEDS ORDERED: Ondansetron HCl/PF 4 MG/2 ML Vial IVP PRN (02:09)
[2018-06-13] MEDS ORDERED: Ondansetron ODT 4 MG TAB SL PRN (02:09)
[2018-06-13] MEDS ORDERED: Acetaminophen 500 MG TAB PO PRN (02:10)
[2018-06-13] MEDS: Morphine 4 MG/ML VIAL IV PRN ×2 (02:27→08:17)
[2018-06-13] MEDS: Sodium Chloride 0.9% 1,000 ML IV SCH ×4 (03:21→20:34)
[2018-06-13] MEDS: Piperacillin/Tazobactam 3.375 GM in Sodium Chloride 0.9% 100 ML IVPB SCH ×3 (03:22→18:18)
[2018-06-13] MEDS ORDERED: Acetaminophen 1,000 MG in Premix Bag 1 BAG IVPB PRN (08:47)
[2018-06-13] MEDS ORDERED: Morphine 4 MG/ML VIAL SLOW IVP PRN (08:47)
--- NOTE | 2018-06-13 09:06 | HP ---
CHIEF COMPLAINT: Abdominal pain. HISTORY OF PRESENT ILLNESS: This is a 58-year-old female, admitted to my service overnight with dive rticulitis, localized perforation. Reportedly, was fairly comfortable in the emergency room upon adm ission; however, having increasing pain overnight. She denies previous known history of diverticulit is. She has a history of COPD, sees Dr. Glasgow for that. She is on home O2. She takes prednisone 20 mg most days. Pain is described as 10/10, mostly in the lower abdomen, but diffuse. PAST MEDICAL HISTORY: Includes COPD; diastolic heart failure; hypertension; morbid obesity; hyperlip idemia; diabetes mellitus, type 2. PAST SURGICAL HISTORY: Appendectomy, tubal ligation. ALLERGIES: SULFA. MEDICINES: See list. SOCIAL HISTORY: Former smoker, no alcohol. REVIEW OF SYSTEMS: Otherwise negative unless described above. PHYSICAL EXAMINATION: VITAL SIGNS: Blood pressure is 118/80, pulse 113, respirations 18, temperature 98.2. HEENT: Sclerae are anicteric. Oropharynx clear. NECK: No lymphadenopathy. CHEST: Clear. HEART: Increased rate, regular rhythm without murmur. ABDOMEN: Soft, diffusely tender with peritoneal signs. She has an umbilical hernia. EXTREMITIES: No ischemia or edema to extremities. LABORATORY DATA: White blood cell count is 23, hemoglobin is 13. Sodium 128, potassium 4.4, creatin ine is 1.34. Coags are normal. X-RAY FINDINGS: CT scan shows localized perforation, severe, with free intraperitoneal air next to t he sigmoid colon. ASSESSMENT: Ruptured sigmoid diverticulitis with peritonitis. PLAN: Exploratory laparotomy, sigmoid colectomy, colostomy. She understands the risks, benefits, al ternatives. She will have to be in the ICU postop. We will have Dr. Glasgow involved in her care. I suspect she will need wound left open with wound VAC as well.
[2018-06-13] MEDS ORDERED: Fentanyl 100 MCG/2 ML VIAL ONE (10:57)
[2018-06-13] MEDS ORDERED: HYDROmorphone 2 MG/ML VIAL ONE (11:01)
[2018-06-13] MEDS ORDERED: Fentanyl 250 MCG/5 ML VIAL ONE (11:01)
[2018-06-13] MEDS ORDERED: Bupivacaine/Epinephrine 0.25% 30 ML VIAL ONE (11:06)
[2018-06-13] MEDS ORDERED: Hydrocortisone Sod Succ/PF 100 mg/2 ml Vial IVP SCH (11:15)
[2018-06-13] MEDS ORDERED: Midazolam HCl 2 mg/2 ml Vial ONE (11:29)
[2018-06-13] MEDS ORDERED: Sodium Chloride 0.9% 10 ML ONE (12:57)
[2018-06-13] MEDS ORDERED: Dextrose 50% Abboject 50 ML SYRINGE SLOW IVP PRN (13:55)
[2018-06-13] MEDS ORDERED: hydrALAZINE 20 MG/ML VIAL SLOW IVP PRN (13:55)
[2018-06-13 14:22] LABS: Actual Bicarbonate (HCO3a) 24.3 mEq/L (22-28); Base Excess (BEa) -2.7 mEq/L (-2.0 to +3.0); CO2 Tension 52.4 mmHg (35.0-45.0); Hemoglobin (Hb) 11.7 g/dL (12.0-16.0); O2 Tension (PaO2) 70.6 mmHg (80.0-100.0); pH, Arterial 7.29 (7.35-7.45)
[2018-06-13 14:23] LABS: Carboxyhemoglobin (COHb) 4.2 gm% (0.0-3.0); Potassium - ABG Lab 4.3 mmol/L (3.70-5.30)
[2018-06-13 14:24] LABS: Calcium, Ionized 1.2 mmol/L (1.12-1.30); Puncture Site RIGHT BRACHIAL
[2018-06-13] MEDS ORDERED: Lidocaine 1% PF 5 ML VIAL ONE (14:32)
[2018-06-13] MEDS ORDERED: Ondansetron HCl/PF 4 MG/2 ML Vial ONE (14:32)
[2018-06-13] MEDS ORDERED: PROPOFOL 200 MG/20 ML VIAL ONE (14:32)
[2018-06-13] MEDS ORDERED: PHENYLEPHRINE-NS 100 MCG/ML 10 ML SYRINGE ONE (14:32)
[2018-06-13] MEDS ORDERED: diphenhydrAMINE 50 MG/ML VIAL ONE (14:32)
[2018-06-13] MEDS ORDERED: Esmolol 100 MG/10 ML VIAL ONE (14:32)
[2018-06-13] MEDS ORDERED: Glycopyrrolate 0.2 MG/ML 5 ML SYRINGE ONE (14:32)
[2018-06-13] MEDS ORDERED: fentaNYL Citrate/PF 2,000 MCG in Sodium Chloride 0.9% 60 ML IV SCH (14:52)
[2018-06-13] MEDS ORDERED: Fentanyl BOLUS 250 ML IVPB PRN (14:52)
[2018-06-13] MEDS ORDERED: DISCONTINUE PREVIOUS NARCOTIC PAIN MEDICATIONS AND BENZODIAZEPINES FS SCH (14:52)
[2018-06-13] MEDS ORDERED: Propofol 1,000 MG/100 ML VIAL IV PRN (14:52)
[2018-06-13] MEDS ORDERED: Propofol BOLUS 1,000 MG/100 ML VIAL IV PRN (14:52)
[2018-06-13] MEDS: Lorazepam 2 MG/ML VIAL SLOW IVP PRN ×2 (15:15→19:26)
--- NOTE | 2018-06-13 15:27 | RAD ---
AP VIEW OF THE CHEST: INDICATION: Line placement. COMPARISON: Prior exam dated 06/12/18. FINDINGS: The patient has been intervally intubated. ET tube tip is seen 3.7 cm from the constanza. Gastric cath eter projects below the left hemidiaphragm beyond the field of view. There is a new right IJ central venous catheter projecting in the region of the SVC. The lungs are clear. No pneumothorax is evide nt. IMPRESSION: 1. New tubes and lines as above. 2. No pneumothorax. POS: [facility]
--- NOTE | 2018-06-13 15:50 | CON ---
DATE OF CONSULTATION: 06/13/2018 HISTORY OF PRESENT ILLNESS: Ms. Werner is a 58-year-old female. She has been having apparently so me abdominal discomfort, a little while. Her family says she went to [facility] thi nking she had a bladder infection. She was sent home and subsequently presented back here again yest rufina. CT scan of her abdomen showed perforation with free air. She was transferred here. She has gone to the OR and is now mechanically ventilated. PAST MEDICAL AND SURGICAL HISTORY: Remarkable for, 1. Chronic obstructive pulmonary disease. Her family says she is on steroids more than she is off s teroids. 2. History of diastolic heart failure. 3. History of hypertension. 4. History of obesity. 5. Lipid disorder. 6. History of diabetes. 7. History of smoking. 8. History of an appendectomy. 9. Tubal ligation in the past. SOCIAL HISTORY: She is not smoking as of 10/03 and been quit a year. She is not a daily drinker. S he did not use drugs. Her tobacco history is only 20 pack years according to old records. ALLERGIES: She reports an allergy to SULFA. MEDICATIONS: The last time she was in the hospital, she was on aspirin, atorvastatin, lisinopril, me toprolol, potassium, Singulair, fluticasone, Pepcid, ipratropium 2 puffs 4 times a day, albuterol neb ulized treatments, Lasix, and metformin. FAMILY HISTORY: Negative for lung disease in early age. REVIEW OF SYSTEMS: Not obtainable. PHYSICAL EXAMINATION: GENERAL: She is intubated. VITAL SIGNS: Blood pressure is 160/100. She is afebrile, heart rates in the 90s, respiratory rate w as set at 12. She was chemically paralyzed after blood gas turned her rate up to 16. HEENT: Pupils react. Sclerae is anicteric. NECK: Supple. LUNGS: Clear anteriorly. She has slightly prolonged expiratory phase. HEART: Regular rhythm. S1 and S2 are distant. ABDOMEN: Soft and distended. EXTREMITIES: Without clubbing, cyanosis, or edema. NEUROLOGIC: Cannot be assessed since she was chemically paralyzed. LABORATORY DATA: White count is 23.4, hemoglobin 13.4, platelets 246,000. Sodium 120, potassium 4.4 , chloride 88, bicarbonate 24, BUN 30, creatinine 1.34, glucose 335. IMPRESSION: 1. Advanced obstructive lung disease. 2. Status post laparotomy for perforated viscus. 3. Acute respiratory failure on mechanical ventilation. Until her abdominal distention improves, pam kent obviously would not be weanable given the severity of her obstructive lung disease. She will need stress dose steroids for now. Antimicrobial therapy per the surgeons. Deep venous thr ombosis prophylaxis, IV hydration aggressively since she will probably have a tremendous amount of ab dominal third spacing of intravascular volume. She will need to be mechanically ventilated receiving her nebulized treatments while ventilated. Checked a chest radiograph, she is at risk for developing noncardiogenic pulmonary edema. CRITICAL CARE TIME: 40 minutes.
[2018-06-13] MEDS: HumaLOG 300 UNITS/3 ML VIAL SC PRN (18:27)
[2018-06-14] MEDS: Famotidine/PF 20 mg/2ml Vial SLOW IVP SCH ×3 (01:15→21:03)
[2018-06-14] MEDS: Piperacillin/Tazobactam 3.375 GM in Sodium Chloride 0.9% 100 ML IVPB SCH ×4 (01:17→17:03)
[2018-06-14] MEDS: Sodium Chloride 0.9% 1,000 ML IV SCH ×2 (01:21→10:56)
[2018-06-14] MEDS ORDERED: Norepinephrine 8 MG/250 ML BAG IVPB PRN (01:39)
[2018-06-14] MEDS ORDERED: Sodium Chloride 0.9% 1,000 ML IV SCH (01:45)
[2018-06-14] MEDS ORDERED: Sodium Chloride 0.9% 1,000 ML IV PRN (02:30)
[2018-06-14 04:51] LABS: Anion Gap 17 mmol/L (10-20); BUN (Urea Nitrogen) 26 mg/dL (9.8-20.1); Calc. Creatinine Clearance 69 mL/min (70-130); Calcium 8.1 mg/dL (7.8-10.44); Carbon Dioxide 19 mmol/L (22-29); Chloride 107 mmol/L (98-107); Estimated GFR-MDRD 43; Glucose 267 mg/dL (70-105); Potassium 4.7 mmol/L (3.5-5.1); Sodium 138 mmol/L (136-145)
[2018-06-14 04:56] LABS: Band 36 % (5-11); Hemoglobin 10.8 g/dL (12.0-16.0); Lymphocytes 1 % (21-51); MDiff Complete? YES; Mean Corpuscular HGB CONC 32.2 g/dL (32.0-36.0); Mean Corpuscular Hemoglobin 31.9 pg (27.0-31.0); Mean Corpuscular Volume 99.1 fL (78.0-98.0); Mean Platelet Volume 7.5 fL (7.4-10.4); Metamyelocyte 2 % (0-0); Monocytes 1 % (0-10); Myelocyte 1 % (0-0); Neutrophil 58 % (42-75); PLT Morphology Comment Appears Adequate; Platelet Count 235 thou/uL (130-400); RBC Distribution Width 12.8 % (11.5-14.5); Red Blood Cell (RBC) Count 3.38 mill/uL (4.20-5.40); White Blood Cell (WBC) Count 18.1 thou/uL (4.8-10.8)
[2018-06-14] MEDS: HumaLOG 300 UNITS/3 ML VIAL SC PRN ×3 (06:28→17:16)
[2018-06-14 07:59] LABS: Actual Bicarbonate (HCO3a) 17.7 mEq/L (22-28); Base Excess (BEa) -7.4 mEq/L (-2.0 to +3.0); CO2 Tension 34.4 mmHg (35.0-45.0); O2 Tension (PaO2) 105.5 mmHg (80.0-100.0); pH, Arterial 7.33 (7.35-7.45)
[2018-06-14 08:00] LABS: Calcium, Ionized 1.1 mmol/L (1.12-1.30); Hemoglobin (Hb) 10.5 g/dL (12.0-16.0); Potassium - ABG Lab 4.8 mmol/L (3.70-5.30); Puncture Site L.B.
--- NOTE | 2018-06-14 08:56 | RAD ---
CHEST 1 VIEW: Date: 06/14/18 HISTORY: Ventilated patient. COMPARISON: Chest radiograph from prior day. FINDINGS: Right IJ central venous catheter in good position. Enteric tube tip below diaphragm, although out of field of view. Endotracheal tube with tip at level of clavicles. No pneumothorax or effusion. No acute osseous abnormality. IMPRESSION: No significant change in radiographic appearance of the chest. POS: [facility]
[2018-06-14] MEDS: Enoxaparin Sodium 40 MG/0.4 ML SYRINGE SC SCH (09:07)
--- NOTE | 2018-06-14 10:31 | PRG ---
DATE OF SERVICE: 06/14/2018 SERVICE: Pulmonary Medicine. INTERVAL HISTORY: The patient is doing okay from a respiratory standpoint. She underwent a colectom y yesterday with ileostomy formation. She is recovering well from the surgery. She overnight had so me marginal blood pressures and was tachycardic. She got 2-1/2 liters of fluid. This morning, urine output has actually picked up a little bit. She cannot provide any additional elements of the histor y, but indicates to me that she is getting enough air. PHYSICAL EXAMINATION: VITAL SIGNS: Afebrile, pulse 126, blood pressure 105/61, respirations 17, saturation 95% on 40% FiO2 and a PEEP of 5. GENERAL: She is somnolent, but alert. With questioning and gentle stimulation, the patient wakes up appropriately. With no manipulation after 10 seconds, she will fall back asleep comfortably. HEENT: Normocephalic, atraumatic. Sclerae are white, conjunctivae pink. Oral mucosa is moist witho ut lesions. LUNGS: Decent air entry bilaterally. There is a prolonged expiratory phase. Dependent crackles are appreciated. I hear no wheezing currently. HEART: Normal rate, regular. ABDOMEN: Soft, nontender, nondistended. Bowel sounds are positive. MUSCULOSKELETAL: No cyanosis or clubbing. There is diffuse 1-2+ pitting throughout. GENITOURINARY: Conner catheter in place. NEUROLOGIC: Grossly nonfocal. LABORATORY DATA: WBC 18.1, hemoglobin 10.8, platelets 235,000, pH 7.33, pCO2 34, pO2 105, creatinine 1.28, gently down trending. Basic metabolic profile is otherwise unremarkable. Blood sugar ranges from 220-293. IMAGING DATA: Chest x-ray demonstrates decent placement for the endotracheal tube. There is a right IJ central venous catheter in good position. Enteric catheter courses below the level of the diaphr agm and out of the field of view. Cephalization is noted. ASSESSMENT: 1. Acute hypoxic respiratory failure. 2. Chronic obstructive pulmonary disease with acute exacerbation. 3. Gross peritonitis secondary to large bowel perforation. 4. Status post colectomy, postop day #1. 5. Severe sepsis. 6. Acute kidney injury, resolving. PLAN: We will continue supportive care for the next 24 hours. I will drop her IV fluid rate. I dhruv l introduce a small dose of steroids. We will try to minimize fluids moving forward as when she brianna vers from her sepsis profile, she will likely require several doses of Lasix before we can extubate h er. She has a very prolonged expiratory phase. That being said, she seems to be holding her own. W e will drop our support on the mechanical ventilator slightly. CRITICAL CARE TIME: 30 minutes.
[2018-06-14] MEDS: Metoprolol Tartrate 5 MG/5 ML VIAL IVP SCH ×3 (10:48→23:13)
[2018-06-14] MEDS: Sodium Chloride 0.45% 1,000 ML IV SCH (10:49)
--- NOTE | 2018-06-14 11:20 | OP ---
DATE OF PROCEDURE: 06/13/2018 PREOPERATIVE DIAGNOSES: Ruptured sigmoid diverticulitis with peritonitis. POSTOPERATIVE DIAGNOSES: Ruptured sigmoid diverticulitis with peritonitis. PROCEDURE: 1. Exploratory laparotomy, sigmoid colectomy with end colostomy (Nya's procedure). 2. Mobilization of splenic flexure. 3. Central line placement, right internal jugular vein. SURGEON: Dr. Edmundo Sears ANESTHESIA: General. ESTIMATED BLOOD LOSS: 100 mL. COMPLICATIONS: None. FINDINGS: Gross fecal peritonitis in the pelvis. PROCEDURE IN DETAIL: The patient was taken to the operating room and placed supine on the table. Af ter general anesthetic was obtained, a Conner was placed. The abdomen is prepped and draped in a ster ile fashion. Midline incision is made. Abdominal cavity was entered carefully without injury. Book magan retractor was placed. Left colon mobilized along the white line of Toldt, left ureter found a nd excluded from the dissection. There was local inflammatory infectious response in the pelvis with fecal peritonitis. A window was made posterior to the rectosigmoid junction, a contour was fired ac ross the rectosigmoid junction. The mesentery was taken up using a combination of cautery and the pact LigaSure. Again, the left ureter was found and excluded from injury. The internal mesenteric a rtery was taken low allowing the colon to mobilize up towards the colostomy. A reload of the contour stapler was fired across the mid sigmoid in the area above the perforation and infection. Specimen was sent to pathology. Splenic flexure was then mobilized in the usual fashion. Ellipse of skin clifton en out in the left abdomen. A cruciate incision was made in the fascia. The proximal segment was br ought up through this. This will be the location for the end colostomy. The wound is irrigated usin g warm sterile solution until returns are clear, a #19 round drain left in the pelvis. Seprafilm brandy walt in the pelvis. All instrument counts, needle counts, lap counts were correct. Midline fascia cl osed using #1 PDS from the top and the bottom and tied in the middle. The subcutaneous tissues are i rrigated. Wound VAC was placed at the end of the procedure. Colostomy is matured using 3-0 Vicryls and ostomy devices placed. Next, the right neck and chest was prepped and draped in a sterile fashion. Local anesthetic infiltr ated over the right internal jugular vein. Internal jugular vein cannulated using a 22-gauge finder needle followed by a Seldinger needle. Wire was passed under no tension, a ulises was made at the wire entrance site. The wire was used to guide to dilate the internal jugular vein. Triple lumen cathet er was threaded to 16 cm, sewn to the neck using closed silk and adaptor. All ports flushed and draw ed blood without difficulties, flushed with a saline solution. The sterile dressings are placed. The patient was taken to the ICU intubated, but in stable condition. All instrument counts, needle c ounts, lap counts are correct.
[2018-06-14] MEDS ORDERED: Acetaminophen 1,000 MG in Premix Bag 1 BAG IVPB PRN (16:11)
--- NOTE | 2018-06-14 16:13 | PDOC.GSPN ---
Surgery Progress Note: Subj - Subjective Narrative: POD #1, sigmoid colectomy and colostomy -stable overnight -UOP up now Surgery Progress Note: Obj - Vital signs Vital signs: Vital Signs - Most Recent Temp Pulse Resp BP Pulse Ox 100.1 F H 115 H 18 110/83 93 L 06/14/18 08:00 06/14/18 14:33 06/14/18 14:31 06/14/18 14:33 06/14/18 14:31 - Physical Exam General: no distress Cardiovascular: other (increased rate) Respiratory: clear to auscultation Abdomen: appropriately tender Wound: wound vac Surgery Progress Note: Results - Labs Result Diagrams: 06/14/18 03:45 06/14/18 03:45 Lab results: Laboratory Results - last 24 hr 06/14/18 06/14/18 06/14/18 03:45 03:45 07:00 WBC 18.1 H RBC 3.38 L Hgb 10.8 L Hct 33.4 L MCV 99.1 H MCH 31.9 H MCHC 32.2 RDW 12.8 Plt Count 235 MPV 7.5 Neutrophils % (Manual) 58 Band Neuts % (Manual) 36 H Lymphocytes % (Manual) 1 L Monocytes % (Manual) 1 Basophils % (Manual) 1 Metamyelocytes % (Man) 2 H Myelocytes % 1 H Plt Morphology Comment Appears Adequate Specimen Type ARTERIAL Puncture Site L.B. Bicarbonate Actual 17.7 L ABG pH 7.33 L ABG pCO2 34.4 L ABG pO2 105.5 H ABG O2 Sat Calc/Rasta 96.7 ABG O2 Content 14.0 L ABG Base Excess -7.4 L ABG Hematocrit 31.0 L ABG Hemoglobin 10.5 L ABG Oxyhemoglobin 93.8 L ABG Carboxyhemoglobin 3.0 ABG Methemoglobin 0.00 L ABG Deoxyhemoglobin 3.2 H Ren Test NOT DONE A-a O2 Gradient 136.700 H Ionized Calcium 1.1 L Mode of Support PSIMV Mechanical Rate 7 Inspired O2 40 Tidal Volume 570 Pressure Support 17 PEEP or CPAP 7.0 Sodium 138 136 Potassium 4.7 4.8 Chloride 107 107 H Carbon Dioxide 19 L Anion Gap 17 BUN 26 H Creatinine 1.28 H Estimated GFR (MDRD) 43 Glucose 267 H POC Glucose Calcium 8.1 06/14/18 12:18 WBC RBC Hgb Hct MCV MCH MCHC RDW Plt Count MPV Neutrophils % (Manual) Band Neuts % (Manual) Lymphocytes % (Manual) Monocytes % (Manual) Basophils % (Manual) Metamyelocytes % (Man) Myelocytes % Plt Morphology Comment Specimen Type Puncture Site Bicarbonate Actual ABG pH ABG pCO2 ABG pO2 ABG O2 Sat Calc/Rasta ABG O2 Content ABG Base Excess ABG Hematocrit ABG Hemoglobin ABG Oxyhemoglobin ABG Carboxyhemoglobin ABG Methemoglobin ABG Deoxyhemoglobin Ren Test A-a O2 Gradient Ionized Calcium Mode of Support Mechanical Rate Inspired O2 Tidal Volume Pressure Support PEEP or CPAP Sodium Potassium Chloride Carbon Dioxide Anion Gap BUN Creatinine Estimated GFR (MDRD) Glucose POC Glucose 280 H Calcium Surgery Progress Note: A/P - Problem (1) Sigmoid diverticulitis Current Visit: Yes Code(s): K57.32 - DVTRCLI OF LG INT W/O PERFORATION OR ABSCESS W/O BLEEDING Status: Acute - Plan Plan: Continue Zosyn -vac change tomorrow -extubate per Dr. Glasgow
[2018-06-15] MEDS: Piperacillin/Tazobactam 3.375 GM in Sodium Chloride 0.9% 100 ML IVPB SCH ×4 (00:36→17:00)
[2018-06-15] MEDS: Metoprolol Tartrate 5 MG/5 ML VIAL IVP SCH ×4 (05:08→21:16)
[2018-06-15 05:09] LABS: Anion Gap 14 mmol/L (10-20); BUN (Urea Nitrogen) 26 mg/dL (9.8-20.1); Calc. Creatinine Clearance 92 mL/min (70-130); Calcium 9.2 mg/dL (7.8-10.44); Carbon Dioxide 20 mmol/L (22-29); Chloride 113 mmol/L (98-107); Estimated GFR-MDRD 61; Glucose 289 mg/dL (70-105); Magnesium 1.9 mg/dL (1.6-2.6); Phosphorus 2.5 mg/dL (2.3-4.7); Potassium 4.4 mmol/L (3.5-5.1); Sodium 143 mmol/L (136-145)
[2018-06-15] MEDS: Sodium Chloride 0.45% 1,000 ML IV SCH ×2 (05:09→08:29)
[2018-06-15 05:17] LABS: Band 9 % (5-11); Hemoglobin 9.5 g/dL (12.0-16.0); Hypochromia SLIGHT = 6-15 cells (100X) (0-5/hpf); Lymphocytes 6 % (21-51); MDiff Complete? YES; Mean Corpuscular HGB CONC 31.8 g/dL (32.0-36.0); Mean Corpuscular Hemoglobin 31.9 pg (27.0-31.0); Mean Platelet Volume 6.9 fL (7.4-10.4); Metamyelocyte 1 % (0-0); Monocytes 1 % (0-10); Neutrophil 83 % (42-75); PLT Morphology Comment Appears Adequate; Platelet Count 243 thou/uL (130-400); RBC Distribution Width 13.1 % (11.5-14.5); Red Blood Cell (RBC) Count 2.99 mill/uL (4.20-5.40); White Blood Cell (WBC) Count 15.2 thou/uL (4.8-10.8)
[2018-06-15] MEDS: Famotidine/PF 20 mg/2ml Vial SLOW IVP SCH ×2 (08:27→21:15)
[2018-06-15] MEDS: Enoxaparin Sodium 40 MG/0.4 ML SYRINGE SC SCH (08:28)
[2018-06-15] MEDS: HumaLOG 300 UNITS/3 ML VIAL SC PRN ×2 (11:06→17:16)
[2018-06-15] MEDS ORDERED: Insulin Glargine 15 UNITS in Pre-Filled Syringe 1 EACH SC SCH (12:00)
[2018-06-15] MEDS ORDERED: Furosemide 20 MG/2 ML VIAL SLOW IVP SCH (12:00)
--- NOTE | 2018-06-15 12:00 | PRG ---
DATE OF SERVICE: 06/15/2018 SERVICE: Pulmonary Medicine. INTERVAL HISTORY: The patient is doing really well from a respiratory standpoint. He denies any cur rent chest pain, nausea, vomiting, fevers or chills. She is on mechanical ventilation. There were n o overnight events. She is breathing more comfortably today. Respiratory rate is actually slowing d own. Her inflammatory profile has improved. Urine output has also picked up. Nursing reports no ov ernight events. OBJECTIVE: VITAL SIGNS: Afebrile, pulse 99, blood pressure 103/66, respirations 13, saturation 93% on 3 liters nasal cannula. GENERAL: The patient is awake, alert, no apparent distress. LUNGS: Decent air entry. Dependent crackles are present. There is prolonged expiratory phase. I d o not appreciate wheezing or rhonchi today. HEART: Normal rate, regular. ABDOMEN: Soft, nontender, nondistended. Bowel sounds are positive. MUSCULOSKELETAL: No cyanosis or clubbing. There is 1+ pitting throughout. GENITOURINARY: Conner catheter in place. NEUROLOGIC: Grossly nonfocal. LABORATORY DATA: WBC 15.2, hemoglobin 9.5, platelets 243,000. Neutrophil count is 83%, but the band count has improved. Creatinine 0.95 and gently down trending. Basic metabolic profile is otherwise unremarkable. Magnesium and phosphorus fall within the normal limits. ASSESSMENT: 1. Acute hypoxic respiratory failure. 2. Chronic obstructive pulmonary disease with acute exacerbation. 3. Gross peritonitis secondary to perforated large bowel. 4. Severe sepsis, improving. 5. Acute kidney injury, resolved. 6. Status post colectomy, postop day #2. DISCUSSION AND PLAN: I will give her a dose of IV Lasix. We put on a spontaneous breathing trial. If she meets criteria, extubation will be considered. Pulmonary Critical Care will continue to [facility]. CRITICAL CARE TIME: 30 minutes.
[2018-06-15] MEDS: Dextrose 5% in Water 1,000 ML IV PRN (12:34)
[2018-06-15] MEDS: Dextrose 5% in Water 500 ML IV SCH (12:40)
--- NOTE | 2018-06-15 15:08 | PRG ---
DATE OF SERVICE: 06/15/2018 SUBJECTIVE: Ms. Werner is extubated. She has no complaints. She is more hemodynamically stable n ow. OBJECTIVE: VITAL SIGNS: Blood pressure is 139/81, pulse 113, respirations 14, O2 sat 94%. Urine output 1635 for the shift, minimal stool. CHEST: Coarse. HEART: Regular rate. ABDOMEN: Distended. Wound VAC. Colostomy has pink mucosa. There is a small amount of stool in the bag. LABORATORY DATA: White blood cell count is 15, hemoglobin is 9.5, creatinine is 0.95. ASSESSMENT: Postoperative day #2 exploratory laparotomy, sigmoid colectomy, colostomy for fecal sigm oid perforation, peritonitis. PLAN: We will allow few ice chips today. May remove NG and start clear liquids tomorrow.
[2018-06-16] MEDS: Piperacillin/Tazobactam 3.375 GM in Sodium Chloride 0.9% 100 ML IVPB SCH ×4 (00:25→17:55)
[2018-06-16] MEDS: Dextrose 5% in Water 1,000 ML IV PRN ×4 (00:25→19:49)
[2018-06-16] MEDS: Dextrose 5% in Water 500 ML IV SCH ×4 (05:10→23:44)
[2018-06-16] MEDS: Metoprolol Tartrate 5 MG/5 ML VIAL IVP SCH ×4 (05:14→19:50)
[2018-06-16] MEDS: HumaLOG 300 UNITS/3 ML VIAL SC PRN ×3 (05:19→15:40)
[2018-06-16 05:48] LABS: Anion Gap 12 mmol/L (10-20); BUN (Urea Nitrogen) 32 mg/dL (9.8-20.1); Calc. Creatinine Clearance 92 mL/min (70-130); Calcium 9.7 mg/dL (7.8-10.44); Carbon Dioxide 29 mmol/L (22-29); Chloride 108 mmol/L (98-107); Estimated GFR-MDRD 61; Glucose 332 mg/dL (70-105); Potassium 4.5 mmol/L (3.5-5.1); Sodium 144 mmol/L (136-145)
[2018-06-16] MEDS ORDERED: Furosemide 20 MG/2 ML VIAL SLOW IVP SCH ×2 (06:00→14:00)
[2018-06-16 06:05] LABS: Band 13 % (5-11); Hemoglobin 9.5 g/dL (12.0-16.0); Lymphocytes 4 % (21-51); MDiff Complete? YES; Mean Corpuscular HGB CONC 31.8 g/dL (32.0-36.0); Mean Corpuscular Hemoglobin 31.5 pg (27.0-31.0); Mean Corpuscular Volume 99.2 fL (78.0-98.0); Mean Platelet Volume 7.2 fL (7.4-10.4); Monocytes 3 % (0-10); Myelocyte 2 % (0-0); Neutrophil 78 % (42-75); Platelet Count 265 thou/uL (130-400); RBC Distribution Width 13.1 % (11.5-14.5); Red Blood Cell (RBC) Count 3.01 mill/uL (4.20-5.40); White Blood Cell (WBC) Count 15.8 thou/uL (4.8-10.8)
[2018-06-16] MEDS: Famotidine/PF 20 mg/2ml Vial SLOW IVP SCH ×2 (08:39→19:50)
[2018-06-16] MEDS: Enoxaparin Sodium 40 MG/0.4 ML SYRINGE SC SCH (08:39)
[2018-06-16] MEDS ORDERED: Insulin Glargine 15 UNITS in Pre-Filled Syringe 1 EACH SC SCH (09:00)
[2018-06-16] MEDS ORDERED: Insulin Glargine 20 UNITS in Pre-Filled Syringe 1 EACH SC SCH (09:44)
--- NOTE | 2018-06-16 09:53 | PRG ---
DATE OF SERVICE: 06/16/2018 SERVICE: Pulmonary Medicine. INTERVAL HISTORY: The patient is doing fine from a respiratory standpoint. She is breathing comfort ably. She has no complaints of chest pain, nausea, vomiting or shortness of breath. She is having b diane pain. She is not putting much out of her ostomy at this point. Otherwise, nurse reports no ove rnight events. PHYSICAL EXAMINATION: VITAL SIGNS: Afebrile, pulse 99, blood pressure 154/92, respirations 12, saturation 94% on 4 liters nasal cannula. GENERAL: The patient is awake and alert, in no apparent distress. LUNGS: Decent air entry. Crackles and rhonchi are present. There is a prolonged expiratory phase, but no overt wheezing is appreciated. HEART: Normal rate, regular. ABDOMEN: Soft, nontender, nondistended. Bowel sounds are positive. MUSCULOSKELETAL: No cyanosis or clubbing. There is diffuse 2+ pitting throughout. GENITOURINARY: Conner catheter in place. NEUROLOGIC: Grossly nonfocal. LABORATORY DATA: WBC 15.8, hemoglobin 9.5, platelets 265,000. Neutrophil count is 78% with 13% band s on top of that. Basic metabolic profile is essentially unremarkable. Potassium 4.5. Creatinine 0 .95 and stable. Blood sugars are trending fairly high. ASSESSMENT: 1. Acute hypoxic respiratory failure. 2. Chronic obstructive pulmonary disease with acute exacerbation. 3. Gross peritonitis secondary to perforated large bowel. 4. Severe sepsis, resolving. 5. Status post colectomy, postop day #3. 6. Type 2 diabetes mellitus, uncontrolled. DISCUSSION AND PLAN: We will back off on her steroids today. We will start a daily dose of Lasix. We will try to get her back down to euvolemia. Frequent nebulized medications will be continued. I will change her Accu-Cheks to q.4 and increase her Lantus slightly. Pulmonary or Critical Care will continue to follow along. I think should be best served by staying in the ICU until she is able to g et out of bed into a chair. Mobilization efforts will be pursued.
[2018-06-16] MEDS ORDERED: Insulin Glargine 5 UNITS in Pre-Filled Syringe 1 EACH SC SCH (10:00)
--- NOTE | 2018-06-16 13:46 | PRG ---
DATE OF SERVICE: 06/16/2018 Ms. Werner is doing well. She is extubated. She is answering questions. Her wound is seen at the bedside today with Wound Care. There is no evidence of dehiscence of the fascia. There is no infec tion. The tissues looked good and viable as does the ostomy. PHYSICAL EXAMINATION: VITAL SIGNS: She is afebrile. Vital signs are stable. ABDOMEN: Distended, but she has a small amount of air and stool in her colostomy bag. LABORATORY DATA: White cell count is 15, hemoglobin is 9.5, platelet count is 265. Sodium 144, pota ssium 4.5, creatinine 0.95. Her sugars are high in the 200s-300s. ASSESSMENT: Postop sigmoid colectomy, colostomy, resolving sepsis and respiratory insufficiency. PLAN: Transfer to surgical floor. Discontinue NG. Allow ice chips.
[2018-06-17] MEDS: Piperacillin/Tazobactam 3.375 GM in Sodium Chloride 0.9% 100 ML IVPB SCH ×4 (00:20→17:26)
[2018-06-17] MEDS: Metoprolol Tartrate 5 MG/5 ML VIAL IVP SCH ×4 (05:10→19:24)
[2018-06-17 05:45] LABS: Anion Gap 14 mmol/L (10-20); BUN (Urea Nitrogen) 30 mg/dL (9.8-20.1); Calc. Creatinine Clearance 100 mL/min (70-130); Calcium 9.8 mg/dL (7.8-10.44); Carbon Dioxide 29 mmol/L (22-29); Chloride 104 mmol/L (98-107); Estimated GFR-MDRD 67; Glucose 209 mg/dL (70-105); Magnesium 1.7 mg/dL (1.6-2.6); Potassium 3.6 mmol/L (3.5-5.1); Sodium 143 mmol/L (136-145)
[2018-06-17 05:56] LABS: Band 11 % (5-11); Hemoglobin 10.2 g/dL (12.0-16.0); Lymphocytes 5 % (21-51); MDiff Complete? YES; Mean Corpuscular HGB CONC 32.5 g/dL (32.0-36.0); Mean Corpuscular Hemoglobin 31.9 pg (27.0-31.0); Mean Corpuscular Volume 98.1 fL (78.0-98.0); Mean Platelet Volume 7.2 fL (7.4-10.4); Monocytes 3 % (0-10); Myelocyte 2 % (0-0); Neutrophil 79 % (42-75); Nucleated RBC 1 % (0); Platelet Count 315 thou/uL (130-400); RBC Distribution Width 12.9 % (11.5-14.5); Toxic Granulation SLIGHT; White Blood Cell (WBC) Count 20.1 thou/uL (4.8-10.8)
[2018-06-17] MEDS ORDERED: Furosemide 20 MG/2 ML VIAL SLOW IVP SCH (06:00)
[2018-06-17] MEDS: Enoxaparin Sodium 40 MG/0.4 ML SYRINGE SC SCH (09:20)
[2018-06-17] MEDS: Famotidine/PF 20 mg/2ml Vial SLOW IVP SCH ×2 (09:20→19:24)
[2018-06-17] MEDS: HumaLOG 300 UNITS/3 ML VIAL SC PRN ×3 (09:21→17:26)
[2018-06-17] MEDS ORDERED: Magnesium 2 GM/NS 0.9% 100 ML 2 GM in Premix Bag 1 BAG IVPB SCH (10:15)
[2018-06-17] MEDS ORDERED: Potassium Chloride 40 MEQ in Premix Bag 1 BAG IVPB SCH (10:30)
--- NOTE | 2018-06-17 12:10 | PRG ---
DATE OF SERVICE: 06/17/2018 SERVICE: Pulmonary Medicine. INTERVAL HISTORY: The patient is doing great from a respiratory standpoint. She has severe abdomina l discomfort. Outside of that, she has no specific complaints. She is not able to tolerate any p.o. at this point. Otherwise, nursing reports no overnight events. PHYSICAL EXAMINATION: VITAL SIGNS: Afebrile currently with a T-max of 99.4, pulse 130, blood pressure 163/93, respirations 24, saturation 92% on 3 liters nasal cannula. GENERAL: The patient is awake, alert, in no apparent distress. LUNGS: Decent air entry. There is no prolonged expiratory phase or wheezing appreciated. HEART: Normal rate and regular. ABDOMEN: Soft, nontender, nondistended. Bowel sounds are positive. MUSCULOSKELETAL: No cyanosis or clubbing. There is no pitting in the bilateral lower extremities an y longer. That being said, she still has 1+ pitting in the hips. GENITOURINARY: No Conner. NEUROLOGIC: Grossly nonfocal. LABORATORY DATA: WBC 20.1, hemoglobin 10.2, platelets 315,000. Band count is roughly stable. BUN 3 0, bicarbonate 29. Basic metabolic profile is otherwise unremarkable. Magnesium 1.7. ASSESSMENT: 1. Acute hypoxic respiratory failure. 2. Chronic obstructive pulmonary disease with mild acute exacerbation secondary to abdominal issues. 3. Gross peritonitis secondary to perforated large bowel. 4. Severe sepsis, resolving. 5. Status post colectomy, postop day 4. 6. Type 2 diabetes mellitus, uncontrolled, DISCUSSION AND PLAN: I will replace the potassium and magnesium today. I will back off on the Lasix and try to minimize fluids as she is still minimally volume overloaded. Once she returns to euvolem ia, maintenance doses of fluids can be considered. We will continue mobilization efforts Physical T herapy will be involved. Pulmonary will continue to follow because of her advanced lung disease.
--- NOTE | 2018-06-17 12:22 | PRG ---
DATE OF SERVICE: 06/17/2018 SUBJECTIVE: Ms. Werner was having a little more dyspnea earlier today, tachycardia that is now imp roved. She has vomited twice, but she says she has no nausea now. says it was just a small amount each time. PHYSICAL EXAMINATION: VITAL SIGNS: Her pulse is 115, blood pressure 145/84, pulse 20, she is 96% on 3 liters nasal cannula . Her urine output is adequate. She has had minimal stool. ABDOMEN: Soft, midline wound VAC. LABORATORY DATA: Her white blood cell count is 20, hemoglobin 10, platelet count is 315. She has a fairly normal differential. JORGE L drain is serosanguineous. ASSESSMENT: 1. Status post sigmoid colectomy, colostomy. 2. Chronic obstructive pulmonary disease, on home O2. 3. Wound left open with a wound VAC. 4. Chronic deconditioning and now worse. 5. Expected postop ileus. PLAN: I expect her to have a persistent ileus that is expected for her peritonitis. If she vomits a gain, we will place NG tube. Otherwise, I expect slow recovery. Physical therapy through the [facility]. We will advance diet once she has more air and stool in her bag.
--- NOTE | 2018-06-17 15:44 | RAD ---
CHEST ONE VIEW 06/17/18 HISTORY: Chest pain. COMPARISON: Radiograph 06/14/18. FINDINGS: Right IJ central venous catheter has been placed with tip at the mid SVC. There are linear opacities both lung bases without evidence of pneumonia. No pneumothorax. The patient has been extubated. Enteric tube tip below diaphragm, although out of field of view. IMPRESSION: Interval extubation without complication. POS: [facility]
[2018-06-17] MEDS: Ondansetron HCl/PF 4 MG/2 ML Vial IVP PRN (21:52)
[2018-06-17] MEDS: 1/2 NS w/KCL 20 mEq 1,000 ML IV SCH (21:54)
[2018-06-18] MEDS: 1/2 NS w/KCL 20 mEq 1,000 ML IV SCH ×2 (03:52→16:29)
[2018-06-18 05:12] LABS: Anion Gap 16 mmol/L (10-20); BUN (Urea Nitrogen) 22 mg/dL (9.8-20.1); Calc. Creatinine Clearance 104 mL/min (70-130); Calcium 9.1 mg/dL (7.8-10.44); Carbon Dioxide 27 mmol/L (22-29); Chloride 103 mmol/L (98-107); Estimated GFR-MDRD 70; Glucose 228 mg/dL (70-105); Potassium 4.5 mmol/L (3.5-5.1); Sodium 141 mmol/L (136-145)
[2018-06-18] MEDS: Ondansetron HCl/PF 4 MG/2 ML Vial IVP PRN (05:16)
[2018-06-18] MEDS: Piperacillin/Tazobactam 3.375 GM in Sodium Chloride 0.9% 100 ML IVPB SCH ×5 (05:16→23:59)
[2018-06-18] MEDS: Metoprolol Tartrate 5 MG/5 ML VIAL IVP SCH ×4 (05:17→23:10)
[2018-06-18 07:19] LABS: Band 13 % (5-11); Lymphocytes 7 % (21-51); MDiff Complete? YES; Mean Corpuscular HGB CONC 31.9 g/dL (32.0-36.0); Mean Corpuscular Hemoglobin 31.5 pg (27.0-31.0); Mean Corpuscular Volume 98.7 fL (78.0-98.0); Monocytes 3 % (0-10); Neutrophil 77 % (42-75); Platelet Count 331 thou/uL (130-400); Red Blood Cell (RBC) Count 3.18 mill/uL (4.20-5.40); White Blood Cell (WBC) Count 16.3 thou/uL (4.8-10.8)
[2018-06-18] MEDS: Insulin Glargine 10 UNITS in Pre-Filled Syringe SC SCH (08:14)
[2018-06-18] MEDS: Famotidine/PF 20 mg/2ml Vial SLOW IVP SCH ×2 (08:14→20:53)
[2018-06-18] MEDS: Enoxaparin Sodium 40 MG/0.4 ML SYRINGE SC SCH (08:14)
[2018-06-18] MEDS: HumaLOG 300 UNITS/3 ML VIAL SC PRN ×2 (12:50→16:30)
[2018-06-18] MEDS ORDERED: Acetaminophen 1,000 MG in Premix Bag 1 BAG IVPB PRN (16:10)
[2018-06-18] MEDS ORDERED: Morphine 4 MG/ML VIAL SLOW IVP SCH (16:15)
--- NOTE | 2018-06-18 20:08 | PRG ---
DATE OF SERVICE: 06/18/2018 SUBJECTIVE: Ms. Werner is in surprisingly good mood. Considering what she has been through. OBJECTIVE: VITAL SIGNS: She is afebrile, heart rates in the 90s most of the day, respiratory rates 16-20, oxime try is 95 on 3 liters this afternoon, blood pressure 132/84. Intake and output is negative 1375. LUNGS: Clear. HEART: Regular rhythm. ABDOMEN: Slightly distended, but minimally tender. EXTREMITIES: Without asymmetry or edema. NEUROLOGIC: Grossly nonfocal. LABORATORY DATA: White count 16.3, hemoglobin 10.0, platelets 331. Electrolytes are normal. BUN is 22, creatinine 0.8, potassium is 4.5, glucose today have been between 154-223. IMPRESSION: 1. Acute hypoxic respiratory failure, stable with chronic obstructive pulmonary disease, no longer h aving any clear cut issues. 2. Peritonitis secondary to perforated bowel. 3. Sepsis, resolving. 4. Status post colectomy. 5. Diabetes. PLAN: Continue wound care, physical therapy, nutritional support. She is still on Zosyn and IV Solu -Medrol. Probably cut back on her steroid dosing and hopefully to help facilitate wound healing.
--- NOTE | 2018-06-18 22:59 | PDOC.GSPN ---
Surgery Progress Note: Subj - Subjective Narrative: Patient is feeling all right today except for pain with VAC change. She has not had any flatus yet and is still requiring oxygen to maintain her saturations. Urine output has been good and NG output has been minimal. White count is slightly down to 16. Abdominal exam is appropriate for her postoperative stage. Assessment/plan: Status post Vasquez's for fecal peritonitis and perforated diverticulitis. Continue antibiotics and bowel rest pending return of GI function. Patient was instructed incentive spirometry use and we will try to wean down her oxygen. Surgery Progress Note: Obj - Vital signs Vital signs: Vital Signs - Most Recent Temp Pulse Resp BP Pulse Ox 98.6 F 92 16 116/81 94 L 06/18/18 20:00 06/18/18 22:14 06/18/18 22:14 06/18/18 20:00 06/18/18 22:14 Surgery Progress Note: Results - Labs Result Diagrams: 06/18/18 04:29 06/18/18 04:29 Lab results: Laboratory Results - last 24 hr 06/18/18 06/18/18 06/18/18 11:06 12:30 15:44 POC Glucose 216 H 204 H 154 H 06/18/18 20:06 POC Glucose 141 H
[2018-06-18] MEDS: Sodium Acetate 2 mEq/ml 40 MEQ, Sodium Chloride 30 MEQ, Potassium Chloride 20 MEQ, Pota... IV SCH (23:09)
[2018-06-19] MEDS: Metoprolol Tartrate 5 MG/5 ML VIAL IVP SCH ×4 (05:14→22:26)
[2018-06-19 05:25] LABS: #Eosinphils 0.1 thou/uL (0.0-0.7); #Lymphocytes 1.2 thou/uL (1.20-3.40); #Monocytes 0.5 thou/uL (0.11-0.59); #Neutrophils 12.4 thou/uL (1.40-6.50); %Basophils 0.1 % (0.0-1.0); %Eosinophils 0.7 % (0.0-10.0); %Lymphocytes 8.2 % (21.0-51.0); %Monocytes 3.5 % (0.0-10.0); %Neutrophils 87.6 % (42.0-75.0); Hemoglobin 9.5 g/dL (12.0-16.0); Mean Corpuscular HGB CONC 31.1 g/dL (32.0-36.0); Mean Corpuscular Hemoglobin 30.9 pg (27.0-31.0); Mean Corpuscular Volume 99.3 fL (78.0-98.0); Mean Platelet Volume 6.9 fL (7.4-10.4); Platelet Count 376 thou/uL (130-400); Red Blood Cell (RBC) Count 3.06 mill/uL (4.20-5.40); White Blood Cell (WBC) Count 14.2 thou/uL (4.8-10.8)
[2018-06-19 05:30] LABS: INR-International Normal Ratio 1.1; PTT 29.2 SEC (22.9-36.1); Prothrombin Time 14.4 SEC (12.0-14.7)
[2018-06-19 05:51] LABS: Anion Gap 12 mmol/L (10-20); BUN (Urea Nitrogen) 18 mg/dL (9.8-20.1); Calc. Creatinine Clearance 110 mL/min (70-130); Calcium 8.9 mg/dL (7.8-10.44); Carbon Dioxide 28 mmol/L (22-29); Cardiac Risk 6.1 (Less than 4.5); Chloride 103 mmol/L (98-107); Cholesterol 178 mg/dl (< 200 Desired); Estimated GFR-MDRD 75; Glucose 224 mg/dL (70-105); HDL Cholesterol 29 mg/dL (>60 Neg Risk); LDL Cholesterol, Calculated 101 mg/dL; Magnesium 1.8 mg/dL (1.6-2.6); Phosphorus 2.5 mg/dL (2.3-4.7); Potassium 4.3 mmol/L (3.5-5.1); Sodium 139 mmol/L (136-145); Triglycerides 239 mg/dL (Less than 150)
[2018-06-19] MEDS: 1/2 NS w/KCL 20 mEq 1,000 ML IV SCH ×2 (06:10→16:38)
[2018-06-19] MEDS: Piperacillin/Tazobactam 3.375 GM in Sodium Chloride 0.9% 100 ML IVPB SCH ×3 (06:10→18:06)
[2018-06-19] MEDS: HumaLOG 300 UNITS/3 ML VIAL SC PRN ×4 (06:11→20:28)
[2018-06-19 06:53] LABS: Band 6 % (5-11); Hemoglobin 9.5 g/dL (12.0-16.0); Lymphocytes 7 % (21-51); MDiff Complete? YES; Mean Corpuscular HGB CONC 31.8 g/dL (32.0-36.0); Mean Corpuscular Hemoglobin 31.7 pg (27.0-31.0); Mean Corpuscular Volume 99.6 fL (78.0-98.0); Metamyelocyte 1 % (0-0); Monocytes 7 % (0-10); Neutrophil 79 % (42-75); Platelet Count 377 thou/uL (130-400); Polychromasia SLIGHT = 2-3 cells (100X) (0-2/hpf); Red Blood Cell (RBC) Count 2.98 mill/uL (4.20-5.40); White Blood Cell (WBC) Count 13.8 thou/uL (4.8-10.8)
[2018-06-19] MEDS: Famotidine/PF 20 mg/2ml Vial SLOW IVP SCH ×2 (08:48→20:25)
[2018-06-19] MEDS: Enoxaparin Sodium 40 MG/0.4 ML SYRINGE SC SCH (08:48)
[2018-06-19] MEDS: Insulin Glargine 10 UNITS in Pre-Filled Syringe SC SCH (08:48)
--- NOTE | 2018-06-19 15:40 | PRG ---
DATE OF SERVICE: 06/19/2018 SUBJECTIVE: Batsheva Werner is in no distress. Her only complaint is wanting the NG tube out. Her i ntake and output is negative 150. Her NG drainage was 1250 in the last 24 hours, so it is unlikely as I have explained to her that the tube will be coming up. This is deferred to General Surgery. PHYSICAL EXAMINATION: LUNGS: Clear. HEART: Regular rhythm. ABDOMEN: Soft, only minimally tender. LABORATORY DATA: White count 14.2, hemoglobin 9.5, platelets 376. Sodium 139, potassium 4.3, chlori de 103, bicarbonate 20, BUN 18, creatinine 0.79. IMPRESSION: 1. Acute hypoxic respiratory failure, stable. 2. Stable chronic obstructive pulmonary disease. 3. Peritonitis secondary to perforated viscus with postop mechanical ventilation. 4. Ongoing ileus postoperatively. 5. Status post colectomy. 6. Diabetes. 7. Steroid dependence. I believe prior to admission. PLAN: Continue supportive care, NG suction, nutritional support, antimicrobial therapy. We will con tinue to follow.
--- NOTE | 2018-06-19 16:28 | PDOC.GSPN ---
Surgery Progress Note: Subj - Subjective Narrative: Patient is feeling good today. Her ostomy is starting to put out gas and she is not nauseated. She has been drinking clear liquids but her NG tube has been to suction so there is a lot of Gatorade in her canister. Her prealbumin is 13 and glucoses range from 150-300. Her abdomen is soft and nondistended and bowel sounds are present. JORGE L had 40 out yesterday. Assessment/plan: Status post Vasquez's procedure for perforated diverticulitis. She appears to be recovering and her bowel function is beginning to come back. I clamped her NG tube and if the residual is low we will get this out tonight. Surgery Progress Note: Obj - Vital signs Vital signs: Vital Signs - Most Recent Temp Pulse Resp BP Pulse Ox 97.8 F 106 H 18 129/78 92 L 06/19/18 16:23 06/19/18 16:23 06/19/18 16:23 06/19/18 16:23 06/19/18 16:23 Surgery Progress Note: Results - Labs Result Diagrams: 06/19/18 04:30 06/19/18 04:30 Lab results: Laboratory Results - last 24 hr 06/19/18 06/19/18 06/19/18 04:30 04:30 04:30 WBC 13.8 H RBC 2.98 L Hgb 9.5 L Hct 29.7 L MCV 99.6 H MCH 31.7 H MCHC 31.8 L RDW 13.0 Plt Count 377 MPV 7.0 L Neutrophils % Neutrophils % (Manual) 79 H Band Neuts % (Manual) 6 Lymphocytes % Lymphocytes % (Manual) 7 L Monocytes % Monocytes % (Manual) 7 Eosinophils % Basophils % Metamyelocytes % (Man) 1 H Neutrophils # Lymphocytes # Monocytes # Eosinophils # Basophils # Polychromasia SLIGHT = 2-3 cells PT 14.4 INR 1.1 APTT 29.2 Sodium 139 Potassium 4.3 Chloride 103 Carbon Dioxide 28 Anion Gap 12 BUN 18 Creatinine 0.79 Estimated GFR (MDRD) 75 Glucose 224 H POC Glucose Calcium 8.9 Phosphorus 2.5 Magnesium 1.8 Prealbumin Triglycerides 239 H Cholesterol 178 LDL Cholesterol, Calc 101 HDL Cholesterol 29 Heart Disease Risk Ratio 6.1 06/19/18 06/19/18 06/19/18 04:30 04:30 05:37 WBC 14.2 H RBC 3.06 L Hgb 9.5 L Hct 30.4 L MCV 99.3 H MCH 30.9 MCHC 31.1 L RDW 13.0 Plt Count 376 MPV 6.9 L Neutrophils % 87.6 H Neutrophils % (Manual) Band Neuts % (Manual) Lymphocytes % 8.2 L Lymphocytes % (Manual) Monocytes % 3.5 Monocytes % (Manual) Eosinophils % 0.7 Basophils % 0.1 Metamyelocytes % (Man) Neutrophils # 12.4 H Lymphocytes # 1.2 Monocytes # 0.5 Eosinophils # 0.1 Basophils # 0.0 Polychromasia PT INR APTT Sodium Potassium Chloride Carbon Dioxide Anion Gap BUN Creatinine Estimated GFR (MDRD) Glucose POC Glucose 230 H Calcium Phosphorus Magnesium Prealbumin 13.0 L Triglycerides Cholesterol LDL Cholesterol, Calc HDL Cholesterol Heart Disease Risk Ratio 06/19/18 06/19/18 11:34 16:05 WBC RBC Hgb Hct MCV MCH MCHC RDW Plt Count MPV Neutrophils % Neutrophils % (Manual) Band Neuts % (Manual) Lymphocytes % Lymphocytes % (Manual) Monocytes % Monocytes % (Manual) Eosinophils % Basophils % Metamyelocytes % (Man) Neutrophils # Lymphocytes # Monocytes # Eosinophils # Basophils # Polychromasia PT INR APTT Sodium Potassium Chloride Carbon Dioxide Anion Gap BUN Creatinine Estimated GFR (MDRD) Glucose POC Glucose 302 H 376 H Calcium Phosphorus Magnesium Prealbumin Triglycerides Cholesterol LDL Cholesterol, Calc HDL Cholesterol Heart Disease Risk Ratio
[2018-06-19] MEDS: Docusate 100 MG CAP PO SCH (20:26)
[2018-06-19] MEDS: Sodium Acetate 2 mEq/ml 40 MEQ, Sodium Chloride 30 MEQ, Potassium Chloride 20 MEQ, Pota... IV SCH (22:26)
[2018-06-20] MEDS: Piperacillin/Tazobactam 3.375 GM in Sodium Chloride 0.9% 100 ML IVPB SCH ×5 (00:22→23:20)
[2018-06-20] MEDS: HumaLOG 300 UNITS/3 ML VIAL SC PRN ×7 (01:08→20:25)
[2018-06-20] MEDS: 1/2 NS w/KCL 20 mEq 1,000 ML IV SCH ×3 (02:19→21:21)
[2018-06-20] MEDS: Metoprolol Tartrate 5 MG/5 ML VIAL IVP SCH ×4 (05:02→22:23)
[2018-06-20 06:13] LABS: Anion Gap 11 mmol/L (10-20); BUN (Urea Nitrogen) 22 mg/dL (9.8-20.1); Calc. Creatinine Clearance 106 mL/min (70-130); Carbon Dioxide 28 mmol/L (22-29); Chloride 102 mmol/L (98-107); Cholesterol 161 mg/dl (< 200 Desired); Estimated GFR-MDRD 71; Glucose 310 mg/dL (70-105); HDL Cholesterol 23 mg/dL (>60 Neg Risk); LDL Cholesterol, Calculated 78 mg/dL; Magnesium 1.7 mg/dL (1.6-2.6); Phosphorus 3.1 mg/dL (2.3-4.7); Potassium 4.4 mmol/L (3.5-5.1); Sodium 137 mmol/L (136-145); Triglycerides 299 mg/dL (Less than 150)
[2018-06-20] MEDS: Enoxaparin Sodium 40 MG/0.4 ML SYRINGE SC SCH (08:10)
[2018-06-20] MEDS: Insulin Glargine 10 UNITS in Pre-Filled Syringe SC SCH (08:10)
[2018-06-20] MEDS: Famotidine/PF 20 mg/2ml Vial SLOW IVP SCH ×2 (08:11→20:24)
[2018-06-20] MEDS: Docusate 100 MG CAP PO SCH ×2 (08:11→20:23)
[2018-06-20 11:00] LABS: Band 7 % (5-11); Hemoglobin 9.8 g/dL (12.0-16.0); Lymphocytes 16 % (21-51); MDiff Complete? YES; Mean Corpuscular HGB CONC 31.6 g/dL (32.0-36.0); Mean Corpuscular Hemoglobin 31.4 pg (27.0-31.0); Mean Corpuscular Volume 99.3 fL (78.0-98.0); Myelocyte 4 % (0-0); Neutrophil 73 % (42-75); Platelet Count 375 thou/uL (130-400); Red Blood Cell (RBC) Count 3.11 mill/uL (4.20-5.40); White Blood Cell (WBC) Count 11.6 thou/uL (4.8-10.8)
[2018-06-20] MEDS ORDERED: Polyethylene Glycol 3350 17 GM Packet PO SCH (13:00)
--- NOTE | 2018-06-20 14:06 | PRG ---
DATE OF SERVICE: 06/20/2018 SUBJECTIVE: The patient is doing reasonably well postop from laparotomy for colon obstruction. PHYSICAL EXAMINATION: VITAL SIGNS: Temperature is 98.0, pulse 106, respirations 18, O2 sat 92%, blood pressure 119/76. HEENT: Unremarkable. NECK: No JVD. CHEST: Clear without wheezing. CARDIAC: S1 and S2 regular. ABDOMEN: Some midline wound VAC. She also has left side colostomy. EXTREMITIES: No edema. LABORATORY DATA: White blood cell count 11.6, hematocrit 30.9, platelet count 375. Sodium 136, pota ssium 4.4, chloride 102, CO2 28, BUN 22, creatinine 0.8, glucose 341. ASSESSMENT: 1. Acute hypoxic respiratory failure, which is resolving. 2. Chronic obstructive pulmonary disease. 3. Status post laparotomy for peritonitis from perforated viscus. 4. Ileus. 5. Diabetes. PLAN: The patient needs higher dose of Lantus insulin, which she is currently getting given her cont inued hyperglycemia. I will also go ahead with the Lantus b.i.d. for the time being. Otherwise, I w ould continue supportive care with the low dose IV steroids, antibiotics, and her TPN.
--- NOTE | 2018-06-20 17:04 | PDOC.GSPN ---
Surgery Progress Note: Subj - Subjective Narrative: Feels somewhat better. Wound is clean and starting to granulate. Gas from ostomy but no stool yet; per pt it has been at least 13d since last BM. Blood sugars poorly controlled, 275-310. Dr Catalan added glargine to medication regimen today. Given longstanding constipation, will add docusate and miralax also. Surgery Progress Note: Obj - Vital signs Vital signs: Vital Signs - Most Recent Temp Pulse Resp BP Pulse Ox 98.9 F 124 H 18 146/75 H 94 L 06/20/18 15:07 06/20/18 15:07 06/20/18 15:07 06/20/18 15:07 06/20/18 15:07 Surgery Progress Note: Results - Labs Result Diagrams: 06/20/18 05:24 06/20/18 05:24 Lab results: Laboratory Results - last 24 hr 06/20/18 06/20/18 06/20/18 05:09 05:24 05:24 WBC 11.6 H RBC 3.11 L Hgb 9.8 L Hct 30.9 L MCV 99.3 H MCH 31.4 H MCHC 31.6 L RDW 13.0 Plt Count 375 MPV 7.0 L Neutrophils % (Manual) 73 Band Neuts % (Manual) 7 Lymphocytes % (Manual) 16 L Myelocytes % 4 H Sodium 137 Potassium 4.4 Chloride 102 Carbon Dioxide 28 Anion Gap 11 BUN 22 H Creatinine 0.83 Estimated GFR (MDRD) 71 Glucose 310 H POC Glucose 286 H Calcium 9.0 Phosphorus 3.1 Magnesium 1.7 Prealbumin Triglycerides 299 H Cholesterol 161 LDL Cholesterol, Calc 78 HDL Cholesterol 23 Heart Disease Risk Ratio 7.0 06/20/18 06/20/18 06/20/18 05:24 08:09 11:33 WBC RBC Hgb Hct MCV MCH MCHC RDW Plt Count MPV Neutrophils % (Manual) Band Neuts % (Manual) Lymphocytes % (Manual) Myelocytes % Sodium Potassium Chloride Carbon Dioxide Anion Gap BUN Creatinine Estimated GFR (MDRD) Glucose POC Glucose 275 H 341 H Calcium Phosphorus Magnesium Prealbumin 14.0 L Triglycerides Cholesterol LDL Cholesterol, Calc HDL Cholesterol Heart Disease Risk Ratio 06/20/18 06/20/18 15:07 15:59 WBC RBC Hgb Hct MCV MCH MCHC RDW Plt Count MPV Neutrophils % (Manual) Band Neuts % (Manual) Lymphocytes % (Manual) Myelocytes % Sodium Potassium Chloride Carbon Dioxide Anion Gap BUN Creatinine Estimated GFR (MDRD) Glucose POC Glucose 512 H 503 H Calcium Phosphorus Magnesium Prealbumin Triglycerides Cholesterol LDL Cholesterol, Calc HDL Cholesterol Heart Disease Risk Ratio
[2018-06-20] MEDS: Insulin Glargine 20 UNITS in Pre-Filled Syringe SC SCH (20:24)
[2018-06-20] MEDS: Sodium Acetate 2 mEq/ml 40 MEQ, Sodium Chloride 30 MEQ, Potassium Chloride 20 MEQ, Pota... IV SCH (22:23)
[2018-06-21] MEDS: Metoprolol Tartrate 5 MG/5 ML VIAL IVP SCH ×4 (03:51→22:02)
[2018-06-21] MEDS: HumaLOG 300 UNITS/3 ML VIAL SC PRN ×5 (04:04→21:06)
[2018-06-21 05:07] LABS: Anion Gap 13 mmol/L (10-20); BUN (Urea Nitrogen) 18 mg/dL (9.8-20.1); Calc. Creatinine Clearance 119 mL/min (70-130); Calcium 9.1 mg/dL (7.8-10.44); Carbon Dioxide 26 mmol/L (22-29); Cardiac Risk 6.9 (Less than 4.5); Chloride 101 mmol/L (98-107); Cholesterol 166 mg/dl (< 200 Desired); Estimated GFR-MDRD 81; Glucose 244 mg/dL (70-105); HDL Cholesterol 24 mg/dL (>60 Neg Risk); LDL Cholesterol, Calculated 92 mg/dL; Magnesium 1.7 mg/dL (1.6-2.6); Phosphorus 2.6 mg/dL (2.3-4.7); Potassium 4.3 mmol/L (3.5-5.1); Sodium 136 mmol/L (136-145); Triglycerides 248 mg/dL (Less than 150)
[2018-06-21 05:19] LABS: Band 14 % (5-11); Hemoglobin 9.8 g/dL (12.0-16.0); Lymphocytes 6 % (21-51); MDiff Complete? YES; Mean Corpuscular HGB CONC 31.9 g/dL (32.0-36.0); Mean Corpuscular Hemoglobin 31.5 pg (27.0-31.0); Mean Corpuscular Volume 98.6 fL (78.0-98.0); Mean Platelet Volume 7.2 fL (7.4-10.4); Monocytes 8 % (0-10); Myelocyte 6 % (0-0); Neutrophil 66 % (42-75); Nucleated RBC 1 % (0); Platelet Count 413 thou/uL (130-400); Polychromasia SLIGHT = 2-3 cells (100X) (0-2/hpf); RBC Distribution Width 12.9 % (11.5-14.5); Red Blood Cell (RBC) Count 3.12 mill/uL (4.20-5.40); White Blood Cell (WBC) Count 15.1 thou/uL (4.8-10.8)
[2018-06-21] MEDS: Piperacillin/Tazobactam 3.375 GM in Sodium Chloride 0.9% 100 ML IVPB SCH ×3 (06:06→18:20)
[2018-06-21] MEDS ORDERED: Clopidogrel Bisulfate 75 MG TAB ONE (06:33)
[2018-06-21] MEDS: Ondansetron HCl/PF 4 MG/2 ML Vial IVP PRN ×2 (08:16→21:16)
[2018-06-21] MEDS: Enoxaparin Sodium 40 MG/0.4 ML SYRINGE SC SCH (08:17)
[2018-06-21] MEDS: Famotidine/PF 20 mg/2ml Vial SLOW IVP SCH ×2 (08:17→21:02)
[2018-06-21] MEDS: Docusate 100 MG CAP PO SCH ×2 (08:17→21:02)
[2018-06-21] MEDS ORDERED: Polyethylene Glycol 3350 17 GM Packet PO SCH (09:00)
[2018-06-21] MEDS ORDERED: Insulin Glargine 10 UNITS in Pre-Filled Syringe 1 EACH SC SCH ×2 (09:37→09:57)
[2018-06-21] MEDS ORDERED: Furosemide 40 MG/4 ML VIAL SLOW IVP SCH (09:45)
--- NOTE | 2018-06-21 09:48 | PRG ---
DATE OF SERVICE: 06/21/2018 SERVICE: Pulmonary Medicine. INTERVAL HISTORY: The patient is having increasing work of breathing by a little bit today. She den ies any chest pain, nausea, vomiting, fevers or chills. She is coughing a little, but not bringing u p any sputum with color to it. She has yet to be too terribly active. She had not gotten out of bed today yet. She is being challenged with a diet. Hopefully, she will be able to tolerate this, but today, she has not had significant ostomy output. PHYSICAL EXAMINATION: VITAL SIGNS: Afebrile, pulse 119, blood pressure 102/68, respirations 14, saturation 97% on 3 liters nasal cannula. GENERAL: Patient is awake and alert, in no apparent distress. LUNGS: Reduced air entry. There is a prolonged expiratory phase, but I do not appreciate any wheezi ng. Crackles are present throughout bibasilar regions. HEART: Normal rate, regular. ABDOMEN: Soft, nontender, nondistended. Bowel sounds are positive. MUSCULOSKELETAL: No cyanosis or clubbing. There is diffuse 1-2+ pitting throughout. GENITOURINARY: Conner catheter in place. NEUROLOGIC: Grossly nonfocal. LABORATORY DATA: WBC 15.1, hemoglobin 9.8, platelets 413,000. Band count has increased to 14%. Bas ic metabolic profile and liver function studies are essentially unremarkable except for triglyceride of 248. Prealbumin 14.0. Multiple organisms are growing in the belly culture. ASSESSMENT: 1. Acute hypoxic respiratory failure. 2. Chronic obstructive pulmonary disease with mild exacerbation secondary to abdominal issue. 3. Gross peritonitis secondary to perforated large bowel. 4. Severe sepsis, stable. 5. Status post colectomy, postop day #8. 6. Type 2 diabetes mellitus, with improving control. DISCUSSION AND PLAN: I will provide the patient a dose of Lasix today. We will repeat electrolytes tomorrow morning. We will continue our mobilization efforts. Pulmonary will continue to follow unti l she makes more full recovery. Extensive physical therapy is going to be required in order for her to recover from this event. Pulmonary will continue to follow.
[2018-06-21] MEDS ORDERED: Milk Of Magnesia 30 ML UDCUP PO ONE (10:29)
--- NOTE | 2018-06-21 10:31 | PDOC.GSPN ---
Surgery Progress Note: Subj - Subjective Patient reports: no new complaints Surgery Progress Note: Obj - Vital signs Vital signs: Vital Signs - Most Recent Temp Pulse Resp BP Pulse Ox 98.2 F 119 H 20 102/68 96 06/21/18 08:11 06/21/18 09:29 06/21/18 09:29 06/21/18 08:11 06/21/18 09:29 - Physical Exam General: no distress Cardiovascular: regular rate and rhythm Respiratory: clear to auscultation Abdomen: soft, nondistended Wound: wound vac, ostomy/colostomy (mucosa viable) Surgery Progress Note: Results - Labs Result Diagrams: 06/21/18 04:20 06/21/18 04:20 Lab results: Laboratory Results - last 24 hr 06/21/18 06/21/18 06/21/18 00:17 04:04 04:20 WBC RBC Hgb Hct MCV MCH MCHC RDW Plt Count MPV Neutrophils % (Manual) Band Neuts % (Manual) Lymphocytes % (Manual) Monocytes % (Manual) Myelocytes % Nucleated RBCs # (Man) Polychromasia Sodium 136 Potassium 4.3 Chloride 101 Carbon Dioxide 26 Anion Gap 13 BUN 18 Creatinine 0.74 Estimated GFR (MDRD) 81 Glucose 244 H POC Glucose 240 H 233 H Calcium 9.1 Phosphorus 2.6 Magnesium 1.7 Prealbumin Triglycerides 248 H Cholesterol 166 LDL Cholesterol, Calc 92 HDL Cholesterol 24 Heart Disease Risk Ratio 6.9 06/21/18 06/21/18 06/21/18 04:20 04:20 08:16 WBC 15.1 H RBC 3.12 L Hgb 9.8 L Hct 30.7 L MCV 98.6 H MCH 31.5 H MCHC 31.9 L RDW 12.9 Plt Count 413 H MPV 7.2 L Neutrophils % (Manual) 66 Band Neuts % (Manual) 14 H Lymphocytes % (Manual) 6 L Monocytes % (Manual) 8 Myelocytes % 6 H Nucleated RBCs # (Man) 1 H Polychromasia SLIGHT = 2-3 cells Sodium Potassium Chloride Carbon Dioxide Anion Gap BUN Creatinine Estimated GFR (MDRD) Glucose POC Glucose 321 H Calcium Phosphorus Magnesium Prealbumin 14.0 L Triglycerides Cholesterol LDL Cholesterol, Calc HDL Cholesterol Heart Disease Risk Ratio Surgery Progress Note: A/P - Problem (1) Sigmoid diverticulitis Current Visit: Yes Code(s): K57.32 - DVTRCLI OF LG INT W/O PERFORATION OR ABSCESS W/O BLEEDING Status: Acute - Plan Plan: Begin to mobilize more -Milk of magnesium to increase stool output -on zosyn
[2018-06-21] MEDS: 1/2 NS w/KCL 20 mEq 1,000 ML IV SCH ×2 (11:31→18:21)
[2018-06-21] MEDS: Insulin Glargine 20 UNITS in Pre-Filled Syringe SC SCH (11:31)
[2018-06-21] MEDS: Insulin Glargine 10 UNITS in Pre-Filled Syringe 1 EACH SC SCH (21:05)
[2018-06-21] MEDS ORDERED: Sodium Acetate 2 mEq/ml 40 MEQ, Sodium Chloride 30 MEQ, Potassium Chloride 20 MEQ, Pota... IV SCH (22:00)
[2018-06-22] MEDS: Piperacillin/Tazobactam 3.375 GM in Sodium Chloride 0.9% 100 ML IVPB SCH ×5 (00:05→23:00)
[2018-06-22] MEDS: Sodium Acetate 2 mEq/ml 40 MEQ, Sodium Chloride 30 MEQ, Potassium Chloride 20 MEQ, Pota... IV SCH (00:12)
[2018-06-22] MEDS: Promethazine HCl 25 MG/ML VIAL IM PRN (00:38)
[2018-06-22] MEDS: 1/2 NS w/KCL 20 mEq 1,000 ML IV SCH ×2 (05:11→16:56)
[2018-06-22] MEDS: HumaLOG 300 UNITS/3 ML VIAL SC PRN ×5 (05:25→20:46)
[2018-06-22] MEDS: Metoprolol Tartrate 5 MG/5 ML VIAL IVP SCH ×4 (05:26→22:59)
[2018-06-22] MEDS: Ondansetron HCl/PF 4 MG/2 ML Vial IVP PRN (05:51)
[2018-06-22 06:20] LABS: Anion Gap 14 mmol/L (10-20); BUN (Urea Nitrogen) 21 mg/dL (9.8-20.1); Calc. Creatinine Clearance 113 mL/min (70-130); Calcium 9.3 mg/dL (7.8-10.44); Carbon Dioxide 30 mmol/L (22-29); Cardiac Risk 8.3 (Less than 4.5); Chloride 97 mmol/L (98-107); Cholesterol 174 mg/dl (< 200 Desired); Estimated GFR-MDRD 76; Glucose 310 mg/dL (70-105); HDL Cholesterol 21 mg/dL (>60 Neg Risk); LDL Cholesterol, Calculated 100 mg/dL; Magnesium 1.7 mg/dL (1.6-2.6); Phosphorus 2.9 mg/dL (2.3-4.7); Potassium 4.7 mmol/L (3.5-5.1); Sodium 136 mmol/L (136-145); Triglycerides 263 mg/dL (Less than 150)
[2018-06-22 06:40] LABS: Band 24 % (5-11); Hemoglobin 10.7 g/dL (12.0-16.0); Lymphocytes 9 % (21-51); MDiff Complete? YES; Mean Corpuscular HGB CONC 31.5 g/dL (32.0-36.0); Mean Corpuscular Volume 98.5 fL (78.0-98.0); Mean Platelet Volume 7.9 fL (7.4-10.4); Monocytes 7 % (0-10); Neutrophil 60 % (42-75); PLT Morphology Comment Appears Increased; Platelet Count 548 thou/uL (130-400); Red Blood Cell (RBC) Count 3.46 mill/uL (4.20-5.40); Stomatocytes SLIGHT = 2-5 cells (100X) (0-1/hpf); White Blood Cell (WBC) Count 17.9 thou/uL (4.8-10.8)
[2018-06-22] MEDS: Famotidine/PF 20 mg/2ml Vial SLOW IVP SCH ×2 (08:09→20:45)
[2018-06-22] MEDS: Furosemide 40 MG/4 ML VIAL SLOW IVP SCH (08:10)
[2018-06-22] MEDS: Docusate 100 MG CAP PO SCH ×2 (08:10→20:45)
[2018-06-22] MEDS: Enoxaparin Sodium 40 MG/0.4 ML SYRINGE SC SCH (08:10)
[2018-06-22] MEDS: Insulin Glargine 10 UNITS in Pre-Filled Syringe 1 EACH SC SCH (10:27)
--- NOTE | 2018-06-22 12:17 | CT ---
CT ABDOMEN AND PELVIS WITH IV AND ORAL CONTRAST: Date: 06/22/18 HISTORY: Abdominal pain. Leukocytosis. Recent surgery for bowel perforation. COMPARISON: 06/12/18. FINDINGS: Mild atelectasis at the lung bases. Stomach is distended with fluid and a small amount of contrast. S mall bowel is decompressed. Moderate stool throughout the colon. Postoperative changes of the pelvis include left lower quadrant colostomy. Radiopaque surgical drain extends into the right lower quadrant across midline to the left. Gas and fluid remain around the ramona in. Largest pocket is anterior to the uterus, measuring up to 6.2 cm width x 2.4 cm depth. Some gas a nd fluid are also present within the cul-de-sac. Degenerative changes lumbar spine. Bilateral pars interarticularis defects at the lumbosacral junctio n. IMPRESSION: 1. Postoperative change of the pelvis. Some gas and fluid remain at the postoperative bed, partially surrounding the surgical drain. No separate abscess is apparent. 2. No evidence of bowel obstruction. POS: [facility]
--- NOTE | 2018-06-22 13:51 | CON ---
PRIMARY CARE PHYSICIAN: Patricia Lance NP PRIMARY ATTENDING: Dr. Sears. REASON FOR CONSULT: Hyperglycemia management. REASON FOR ADMISSION: Ruptured sigmoid diverticulitis with peritonitis, status post exploratory lapa rotomy, sigmoid colectomy and colostomy. HISTORY OF PRESENT ILLNESS: A 58-year-old female who was admitted by Dr. Sears on 06/13/2018. The patient presented to the emergency room with acute abdomen. She was diagnosed with a ruptured sigmo id diverticulitis with peritonitis. She underwent surgical procedure with exploratory laparotomy, si gmoid colectomy and colostomy. She had JORGE L drain in place. She also had a central line placement. A fter surgery, patient remained in CCU. The patient was also evaluated by pulmonary group for her sev ere COPD. Patient was on TPN. The patient was also on steroid therapy and patient's blood sugar was running very high. Patient was started on sliding scale insulin as well as Lantus insulin was start ed yesterday. We are consulted for diabetes management. This patient has history of prediabetes, but at home patient is not taking any scheduled diabetes med ication. REVIEW OF SYSTEMS: The following complete review of systems was negative, unless otherwise mentioned in the HPI or below: Constitutional: Weight loss or gain, ability to conduct usual activities. Skin: Rash, itching. Eyes: Double vision, pain. ENT/Mouth: Nose bleeding, neck stiffness, pain, tenderness. Cardiovascular: Palpitations, dyspnea on exertion, orthopnea. Respiratory: Shortness of breath, wheezing, cough, hemoptysis, fever or night sweats. Gastrointestinal: Poor appetite, abdominal pain, heartburn, nausea, vomiting, constipation, or diarr hea. Genitourinary: Urgency, frequency, dysuria, nocturia. Musculoskeletal: Pain, swelling. Neurologic/Psychiatric: Anxiety, depression. Allergy/Immunologic: Skin rash, bleeding tendency. Please see my HPI for pertinent positive and negative. All other review of systems reviewed and nega tive except as mentioned in the HPI. Emergency room course as well as hospital course reviewed anna vela. PAST MEDICAL HISTORY: COPD, tobacco abuse disorder, hypertension, osteoarthritis, dyslipidemia, hist ory of prediabetes. PAST SURGICAL HISTORY: Appendicectomy, neck surgery, tubal ligation. The patient is status post exp loratory laparotomy, sigmoid colectomy and colostomy. central line placement. PAST PSYCHIATRIC HISTORY: Anxiety and depression. The patient is not on any specific medication for that. SOCIAL HISTORY: The patient has history of smoking, but she quit smoking since admission. She does not have any alcohol or other illicit drug abuse history. FAMILY HISTORY: No strong family history of premature coronary artery disease, stroke or cancer. ALLERGIES: SULFA DRUGS. CURRENT HOME MEDICATIONS: ProAir HFA 2 puffs q.6 hourly p.r.n., Pepcid 20 mg p.o. b.i.d., Advair 2 i nhalations b.i.d., Tramadol 50 mg p.r.n., Lasix 20 mg p.o. daily, Atrovent nebulization q.i.d., lisin opril 2.5 mg p.o. daily, Toprol-XL 25 mg p.o. daily. PHYSICAL EXAMINATION: VITAL SIGNS: Today, temperature 99.0, pulse 111, respiratory rate 20, saturation 96% on 3 liter nasa l cannula, blood pressure 150/90, weight 197 pounds. GENERAL: Patient is currently alert, awake, no obvious acute distress. HEAD: Normocephalic, atraumatic. EYES: Pupils round, reactive to light. Extraocular muscle intact. ENT: Oropharynx within normal limits. Moist mucous membrane, no oral lesion, no pharyngeal erythema , no exudate. NECK: Patient has a right-sided IJ central line, otherwise supple, no JVD, no thyromegaly, no caroti d bruit. LUNGS: Air entry reduced both sides, but no rales, no wheezing, no accessory muscles of respiration in use. CARDIAC: S1 and S2 regular, slight tachycardia, but no murmur, no gallop, no rub. ABDOMEN: The patient does have surgical site with a wound VAC in place. Right-sided JORGE L drain in brandy ce. Left side colostomy noted. Bowel sounds present. EXTREMITIES: No edema. Good distal pulsation. SCD in place. GENITALIA: Conner catheter in place. NEUROLOGIC: Nonfocal examination. SIGNIFICANT LABORATORY DATA AND IMAGING DATA: Most recent labs today; CBC, WBC 17.9, hemoglobin 10.7 , platelet 548, INR 1.1. Sodium 136, potassium 4.7, chloride 97, carbon dioxide 30, anion gap 14, BU N 21, creatinine 0.78. Glucose 310, calcium 9.3, phosphorus 2.9, magnesium 1.7, triglyceride of 263. Cholesterol 174, LDL 100, HDL 21, prealbumin 12. Culture from colon growing anaerobic cocci and an aerobic gram negative jonas. Abdomen and pelvis CT scan today done which showed postoperative changes, no evidence of bowel obstruction. ASSESSMENT AND PLAN/IMPRESSION: 1. Hyperglycemia. This patient is currently on TPN. Patient has previous history of prediabetes. We will check hemoglobin A1c. Currently, patient is on Lantus 10 units subcu b.i.d. We will increas e to 15 units subcu b.i.d. along with Humalog insulin as per aggressive sliding scale. When patient able to resume diet, at that time, we will start diabetic diet. Currently, the patient is on liquid diet. We will monitor blood sugar very closely. 2. Chronic obstructive pulmonary disease, currently managed by pulmonary group. The patient will co ntinue DuoNeb therapy every 4 hourly. Incentive spirometry advised. Patient will also continue Dule ra 2 puffs inhalation b.i.d. 3. Acute abdomen secondary to ruptured diverticulitis and acute peritonitis, status post sigmoid col ectomy and colostomy. The patient has wound in her abdomen, which is managed with a wound VAC and JORGE L drain in place. Colostomy in place. Management will defer to primary team. The patient is current ly on Zosyn. 4. Hypertension. Patient is on liquid diet. If the patient's oral intake is increased, then we dhruv l resume patient's home blood pressure medication including the lisinopril and Toprol-XL. Currently, patient is getting IV metoprolol and p.r.n. metoprolol. 5. Obesity with body mass index of 37. 6. Anemia, normocytic, normochromic with macrocytosis. 7. Deep venous thrombosis prophylaxis. Patient is already on Lovenox therapy. 8. Gastrointestinal prophylaxis. Patient is already on Pepcid therapy. 9. Code status: The patient is FULL CODE. Patient does not have any surrogate decision maker. Disposition plan based on clinical course. Thank you for the consult. We will follow up with you while in hospital. Plan of care discussed wit h the patient in detail.
[2018-06-22] MEDS ORDERED: ISOVUE-370 76%-LOCM 1 ML ONE (14:05)
[2018-06-22 14:29] LABS: Hemoglobin A1c 9.1 % (4.0-6.0)
--- NOTE | 2018-06-22 15:12 | PDOC.PN ---
- Subjective Encounter Start Date: 06/22/18 Encounter Start Time: 12:00 pt feeling okay, about to have VAC change. No f/C, no N/V/d/c, liyah TPN well solumedrol stopped laast evening, glucose has been better. all systems reviewed and neg x as above - Objective Resuscitation Status: Resuscitation Status FULL:Full Resuscitation MAR Reviewed: Yes Vital Signs & Weight: Vital Signs (12 hours) Temp Pulse Resp BP Pulse Ox 06/22/18 14:11 111 H 20 96 06/22/18 11:52 99.0 F 111 H 20 150/90 H 96 06/22/18 11:13 108 H 20 98 06/22/18 11:11 108 H 20 116/85 98 06/22/18 08:15 98.2 F 115 H 20 95 06/22/18 08:03 98.2 F 115 H 20 106/77 95 06/22/18 07:06 96 06/22/18 07:04 112 H 22 H 96 06/22/18 05:21 98.0 F 103 H 16 139/83 95 Weight Admit Weight 200 lb 0.054 oz Weight 197 lb 14.4 oz Most Recent Monitor Data Heart Rate from ECG 110 NIBP 145/90 NIBP BP-Mean 140 Respiration from ECG 14 SpO2 95 I&O: 06/21/18 06/22/18 06/23/18 06:59 06:59 06:59 Intake Total 3980 2504 Output Total 3415 4596 Balance 565 -9912 Result Diagrams: 06/22/18 05:50 06/22/18 05:50 Additional Labs: Accuchecks 06/22/18 06/22/18 06/22/18 11:49 08:08 06:48 POC Glucose 182 H 224 H 277 H 06/22/18 06/22/18 06/21/18 04:52 00:01 20:43 POC Glucose 316 H 164 H 251 H 06/21/18 06/21/18 18:12 16:01 POC Glucose 440 H Greater than 550 H* Phys Exam - Physical Examination Constitutional: NAD HEENT: PERRLA, moist MMs, sclera anicteric, oral pharynx no lesions Neck: no nodes, no JVD, supple, full ROM Respiratory: no wheezing, no rales, no rhonchi, clear to auscultation bilateral Cardiovascular: RRR, no significant murmur Gastrointestinal: soft scant bowel sounds, minimal tenderness Musculoskeletal: edema present Neurological: non-focal, normal sensation, moves all 4 limbs Lymphatic: no nodes Psychiatric: normal affect, A&O x 3 Skin: no rash, normal turgor, cap refill <2 seconds Deviation from normal: wound dressing C/D/I Dx/Plan (1) Diabetes mellitus, type II Status: Chronic Qualifiers: Diabetes mellitus halfway insulin use: without halfway use Diabetes mellitus complication status: without complication Qualified Code(s): E11.9 - Type 2 diabetes mellitus without complications Comment: [facility] merle jo and SSI with moderate scale, will see how she does off of steroids (2) Sigmoid diverticulitis Code(s): K57.32 - DVTRCLI OF LG INT W/O PERFORATION OR ABSCESS W/O BLEEDING Status: Acute (3) Hypertension Code(s): I10 - ESSENTIAL (PRIMARY) HYPERTENSION Status: Chronic Qualifiers: Hypertension type: essential hypertension Qualified Code(s): I10 - Essential (primary) hypertension (4) Obesity (BMI 30-39.9) Code(s): E66.9 - OBESITY, UNSPECIFIED Status: Chronic - Plan * .
--- NOTE | 2018-06-22 16:40 | PDOC.GSPN ---
Surgery Progress Note: Subj - Subjective Narrative: Nausea earlier, better now. No significant colostomy output Surgery Progress Note: Obj - Vital signs Vital signs: Vital Signs - Most Recent Temp Pulse Resp BP Pulse Ox 98.3 F 111 H 18 107/76 96 06/22/18 15:57 06/22/18 15:57 06/22/18 15:57 06/22/18 15:57 06/22/18 15:57 - Physical Exam General: no distress Cardiovascular: regular rate and rhythm Respiratory: coarse breath sounds Abdomen: soft, appropriately tender, distended Wound: wound vac (Colostomy mucosa pink) Surgery Progress Note: Results - Labs Result Diagrams: 06/22/18 05:50 06/22/18 05:50 Lab results: Laboratory Results - last 24 hr 06/22/18 06/22/18 06/22/18 04:52 05:50 05:50 WBC 17.9 H RBC 3.46 L Hgb 10.7 L Hct 34.1 L MCV 98.5 H MCH 31.0 MCHC 31.5 L RDW 13.0 Plt Count 548 H MPV 7.9 Neutrophils % (Manual) 60 Band Neuts % (Manual) 24 H Lymphocytes % (Manual) 9 L Monocytes % (Manual) 7 Plt Morphology Comment Appears Increased H Stomatocytes SLIGHT = 2-5 cells Sodium 136 Potassium 4.7 Chloride 97 L Carbon Dioxide 30 H Anion Gap 14 BUN 21 H Creatinine 0.78 Estimated GFR (MDRD) 76 Glucose 310 H POC Glucose 316 H Hemoglobin A1c Calcium 9.3 Phosphorus 2.9 Magnesium 1.7 Prealbumin Triglycerides 263 H Cholesterol 174 LDL Cholesterol, Calc 100 HDL Cholesterol 21 Heart Disease Risk Ratio 8.3 06/22/18 06/22/18 06/22/18 05:50 06:48 07:20 WBC RBC Hgb Hct MCV MCH MCHC RDW Plt Count MPV Neutrophils % (Manual) Band Neuts % (Manual) Lymphocytes % (Manual) Monocytes % (Manual) Plt Morphology Comment Stomatocytes Sodium Potassium Chloride Carbon Dioxide Anion Gap BUN Creatinine Estimated GFR (MDRD) Glucose POC Glucose 277 H Hemoglobin A1c 9.1 H Calcium Phosphorus Magnesium Prealbumin 12.0 L Triglycerides Cholesterol LDL Cholesterol, Calc HDL Cholesterol Heart Disease Risk Ratio 06/22/18 06/22/18 06/22/18 08:08 11:49 15:54 WBC RBC Hgb Hct MCV MCH MCHC RDW Plt Count MPV Neutrophils % (Manual) Band Neuts % (Manual) Lymphocytes % (Manual) Monocytes % (Manual) Plt Morphology Comment Stomatocytes Sodium Potassium Chloride Carbon Dioxide Anion Gap BUN Creatinine Estimated GFR (MDRD) Glucose POC Glucose 224 H 182 H 198 H Hemoglobin A1c Calcium Phosphorus Magnesium Prealbumin Triglycerides Cholesterol LDL Cholesterol, Calc HDL Cholesterol Heart Disease Risk Ratio Surgery Progress Note: A/P - Problem (1) Sigmoid diverticulitis Current Visit: Yes Code(s): K57.32 - DVTRCLI OF LG INT W/O PERFORATION OR ABSCESS W/O BLEEDING Status: Acute - Plan Plan: Accucheck high last night, held tpn. -off steroids now -cont abx -CT abd/pelvis shows expected postop findings. Small amount fluid in pelvis with drain in place.
[2018-06-22] MEDS ORDERED: Micafungin 100 MG in Sodium Chloride 0.9% 100 ML IVPB SCH (17:00)
--- NOTE | 2018-06-22 17:03 | PRG ---
DATE OF SERVICE: 06/22/2018 SERVICE: Pulmonary Medicine. INTERVAL HISTORY: The patient is doing fine from a respiratory standpoint. Denies any current chest pain. She has increasing belly distention. With that, she is having a slight increased work of eyal athing. Otherwise, there has been no interval change to her condition. She is yet to get up and mov e about. PHYSICAL EXAMINATION: VITAL SIGNS: Afebrile, pulse 111, blood pressure 107/76, respirations 18, saturation 96% on 3 liters nasal cannula. HEENT: Normocephalic, atraumatic. Sclerae are white, conjunctivae pink. Oral mucosa is moist witho ut lesions. LUNGS: There is reduced air entry. There is a prolonged expiratory phase. Dependent crackles are m inimal. I do not appreciate wheezing or rhonchi. HEART: Normal rate, regular. ABDOMEN: Soft. Distended. Bowel sounds are active. There is tenderness to palpation throughout, b ut no rebound right now. MUSCULOSKELETAL: No cyanosis or clubbing. She is no pitting in the bilateral lower extremities, but she does have 1-2+ pitting at the sacrum. GENITOURINARY: Conner catheter in place. NEUROLOGIC: Grossly nonfocal. LABORATORY DATA: WBC 17.9, hemoglobin 10.7, platelets 548,000. Glucose 277-198. Prealbumin 12.0 an d down trending. Creatinine 0.78. Basic metabolic profile is otherwise unremarkable. IMAGING DATA: CT of the abdomen and pelvis demonstrates gas and fluid remaining in the postoperative bed. No discrete abscess formation is identified otherwise. No evidence of a bowel obstruction is noted. ASSESSMENT: 1. Acute hypoxic respiratory failure. 2. Chronic obstructive pulmonary disease with mild exacerbation secondary to abdominal distention. 3. Gross peritonitis secondary to perforated large bowel. 4. Severe sepsis, stable. 5. Status post colectomy, postop day #9. 6. Type 2 diabetes mellitus. DISCUSSION AND PLAN: HER blood sugars improved when we started putting insulin in her TPN bag. Disc ontinuing steroids has also helped. We will continue to watch her respiratory status very closely. Please be careful about titrating up her subcutaneous long-acting insulin as when we finally disconti nue her TPN, we may run into some issues. At least 50% of her insulin should be short acting. Daily dose of Lasix will be continued in order to prevent her developing significant volume overload.
[2018-06-22] MEDS: Micafungin 100 MG in Sodium Chloride 0.9% 100 ML IVPB SCH (18:21)
[2018-06-22] MEDS: Mometasone/Formoterol 120 PUFF INHALER INH SCH (19:03)
[2018-06-22] MEDS: Insulin Glargine 15 UNITS in Pre-Filled Syringe 1 EACH SC SCH (20:46)
[2018-06-23] MEDS: 1/2 NS w/KCL 20 mEq 1,000 ML IV SCH ×3 (00:06→22:43)
[2018-06-23] MEDS: Sodium Acetate 2 mEq/ml 40 MEQ, Sodium Chloride 30 MEQ, Potassium Chloride 20 MEQ, Pota... IV SCH ×2 (00:40→22:40)
[2018-06-23] MEDS: HumaLOG 300 UNITS/3 ML VIAL SC PRN ×4 (04:15→20:53)
[2018-06-23] MEDS: Metoprolol Tartrate 5 MG/5 ML VIAL IVP SCH ×4 (04:15→22:44)
[2018-06-23] MEDS: Piperacillin/Tazobactam 3.375 GM in Sodium Chloride 0.9% 100 ML IVPB SCH ×4 (05:08→23:55)
[2018-06-23 05:48] LABS: Anion Gap 11 mmol/L (10-20); BUN (Urea Nitrogen) 18 mg/dL (9.8-20.1); Calc. Creatinine Clearance 124 mL/min (70-130); Calcium 8.8 mg/dL (7.8-10.44); Carbon Dioxide 29 mmol/L (22-29); Cardiac Risk 8.8 (Less than 4.5); Chloride 99 mmol/L (98-107); Cholesterol 149 mg/dl (< 200 Desired); Estimated GFR-MDRD 85; Glucose 199 mg/dL (70-105); HDL Cholesterol 17 mg/dL (>60 Neg Risk); LDL Cholesterol, Calculated 89 mg/dL; Magnesium 1.5 mg/dL (1.6-2.6); Phosphorus 2.5 mg/dL (2.3-4.7); Potassium 3.9 mmol/L (3.5-5.1); Sodium 135 mmol/L (136-145); Triglycerides 216 mg/dL (Less than 150)
[2018-06-23 05:52] LABS: Band 23 % (5-11); Eosinophils 1 % (0-10); Hemoglobin 9.6 g/dL (12.0-16.0); Lymphocytes 12 % (21-51); MDiff Complete? YES; Mean Corpuscular HGB CONC 31.3 g/dL (32.0-36.0); Mean Corpuscular Hemoglobin 30.5 pg (27.0-31.0); Mean Corpuscular Volume 97.5 fL (78.0-98.0); Mean Platelet Volume 7.8 fL (7.4-10.4); Metamyelocyte 1 % (0-0); Monocytes 8 % (0-10); Neutrophil 55 % (42-75); PLT Morphology Comment Appears Increased; Platelet Count 484 thou/uL (130-400); Red Blood Cell (RBC) Count 3.14 mill/uL (4.20-5.40); White Blood Cell (WBC) Count 12.8 thou/uL (4.8-10.8)
[2018-06-23] MEDS: Mometasone/Formoterol 120 PUFF INHALER INH SCH ×2 (07:08→19:27)
[2018-06-23] MEDS: Famotidine/PF 20 mg/2ml Vial SLOW IVP SCH ×2 (07:52→20:50)
[2018-06-23] MEDS: Enoxaparin Sodium 40 MG/0.4 ML SYRINGE SC SCH (07:52)
[2018-06-23] MEDS: Furosemide 40 MG/4 ML VIAL SLOW IVP SCH (07:52)
[2018-06-23] MEDS: Docusate 100 MG CAP PO SCH ×2 (07:53→20:50)
[2018-06-23] MEDS: Ondansetron HCl/PF 4 MG/2 ML Vial IVP PRN (08:04)
[2018-06-23] MEDS: Insulin Glargine 15 UNITS in Pre-Filled Syringe 1 EACH SC SCH ×2 (08:04→20:49)
--- NOTE | 2018-06-23 10:37 | PDOC.PN ---
- Subjective Encounter Start Date: 06/23/18 Encounter Start Time: 07:20 -: old records requested/rev Patient seen and examined. No new complaints. No overnight events - Objective Resuscitation Status: Resuscitation Status FULL:Full Resuscitation MAR Reviewed: Yes Vital Signs & Weight: Vital Signs (12 hours) Temp Pulse Resp BP Pulse Ox 06/23/18 09:50 98.4 F 115 H 20 92 L 06/23/18 08:08 98.4 F 115 H 20 157/99 H 92 L 06/23/18 07:09 94 L 06/23/18 07:08 114 H 20 94 L 06/23/18 04:12 98.6 F 109 H 18 104/61 94 L 06/23/18 02:09 108 H 16 95 06/22/18 23:00 98.1 F 110 H 18 129/84 96 Weight Admit Weight 200 lb 0.054 oz Weight 197 lb 14.4 oz Most Recent Monitor Data Heart Rate from ECG 110 NIBP 145/90 NIBP BP-Mean 140 Respiration from ECG 14 SpO2 95 I&O: 06/22/18 06/23/18 06/24/18 06:59 06:59 06:59 Intake Total 2504 1716 Output Total 4596 2335 Balance -3518 -554 Result Diagrams: 06/23/18 05:15 06/23/18 05:15 Additional Labs: Accuchecks 06/23/18 06/23/18 06/23/18 08:03 04:09 00:38 POC Glucose 149 H 229 H 156 H 06/22/18 06/22/18 06/22/18 20:44 15:54 11:49 POC Glucose 255 H 198 H 182 H Phys Exam - Physical Examination Constitutional: NAD HEENT: PERRLA, moist MMs, sclera anicteric Neck: no JVD, supple central line in place Respiratory: no wheezing, no rales, no rhonchi reduced air entry at base Cardiovascular: RRR, no significant murmur, no rub Gastrointestinal: soft, no distention, positive bowel sounds surgical wound with wound vac, JORGE L drain on right side, colostomy on left side Musculoskeletal: no edema, pulses present scd+ Neurological: non-focal, normal sensation Psychiatric: normal affect, A&O x 3 Skin: no rash, normal turgor Dx/Plan (1) Diverticulitis of colon with perforation Code(s): K57.20 - DVTRCLI OF LG INT W PERFORATION AND ABSCESS W/O BLEEDING Status: Acute Comment: s/p laparotomy, sigmoid colectomy and colostomy (2) Anemia, normocytic normochromic Code(s): D64.9 - ANEMIA, UNSPECIFIED Status: Chronic (3) COPD (chronic obstructive pulmonary disease) Status: Chronic (4) Diabetes mellitus, type II Status: Chronic Qualifiers: Diabetes mellitus intermodal customer service insulin use: without intermodal customer service use Diabetes mellitus complication status: without complication Qualified Code(s): E11.9 - Type 2 diabetes mellitus without complications Comment: (5) Hypertension Code(s): I10 - ESSENTIAL (PRIMARY) HYPERTENSION Status: Chronic Qualifiers: Hypertension type: essential hypertension Qualified Code(s): I10 - Essential (primary) hypertension (6) Obesity (BMI 30-39.9) Code(s): E66.9 - OBESITY, UNSPECIFIED Status: Chronic (7) Tobacco abuse Code(s): Z72.0 - TOBACCO USE Status: Chronic - Plan cont current plan of care, luna catheter, continue antibiotics, PT/OT, respiratory therapy, incentive spirometry, out of bed/ambulate, DVT proph w/ lovenox * currently blood sugar are well controlled with current regimen * will monitor * continue zosyn and micafungin * continue post operative care * currently on TPN * incentive spirometry advised * medication reviewed as below * symptomatic treatment. Review of Systems - Review of Systems ENT: negative: Ear Pain, Ear Discharge, Nose Pain, Nose Discharge, Nose Congestion, Mouth Pain, Mouth Swelling, Throat Pain, Throat Swelling, Other Respiratory: negative: Cough, Dry, Shortness of Breath, Hemoptysis, SOB with Excertion, Pleuritic Pain, Sputum, Wheezing Cardiovascular: negative: chest pain, palpitations, orthopnea, paroxysmal nocturnal dyspnea, edema, light headedness, other Gastrointestinal: negative: Nausea, Vomiting, Abdominal Pain, Diarrhea, Constipation, Melena, Hematochezia, Other Genitourinary: negative: Dysuria, Frequency, Incontinence, Hematuria, Retention , Other Musculoskeletal: negative: Neck Pain, Shoulder Pain, Arm Pain, Back Pain, Hand Pain, Leg Pain, Foot Pain, Other - Medications/Allergies Allergies/Adverse Reactions: Allergies Allergy/AdvReac Type Severity Reaction Status Date / Time Sulfa (Sulfonamide Allergy Severe Anaphylaxis Verified 06/25/17 19:45 Antibiotics) Medications: Current Medications Albuterol/Ipratropium (Duoneb) 3 ml NEB Q4H PRN PRN Reason: Wheezing Albuterol/Ipratropium (Duoneb) 3 ml NEB [id number] [facility] Last Admin: 06/23/18 07:08 Dose: 3 ml Dextrose/Water (Dextrose 50%) 25 gm SLOW IVP PRN PRN PRN Reason: Hypoglycemia Docusate Sodium (Colace) 100 mg PO BID [facility] Last Admin: 06/23/18 07:53 Dose: 100 mg Enoxaparin Sodium (Lovenox) 40 mg SC 0900 [facility] Last Admin: 06/23/18 07:52 Dose: 40 mg Famotidine (Pepcid) 20 mg SLOW IVP Q12HR [facility] Last Admin: 06/23/18 07:52 Dose: 20 mg Furosemide (Lasix) 40 mg SLOW IVP DAILY [facility] Last Admin: 06/23/18 07:52 Dose: 40 mg Glucagon (Glucagon) 1 mg IM PRN PRN PRN Reason: Hypoglycemia Hydralazine HCl (Apresoline) 10 mg SLOW IVP Q4H PRN PRN Reason: SBP > 170 or DBP > 100 Dextrose/Water (D5w) 1,000 mls @ 0 mls/hr IV .Q0M PRN PRN Reason: Hypoglycemia Last Admin: 06/16/18 13:05 Dose: 1,000 mls Piperacillin Sod/Tazobactam (Sod 3.375 gm/ Sodium Chloride) 100 mls @ 200 mls/ hr IVPB Q6HR [facility] Last Admin: 06/23/18 05:08 Dose: 100 mls Potassium Chloride/Sodium Chloride (1/2 Ns W/Kcl 20 Meq) 1,000 mls @ 100 mls/ hr IV .Q10H [facility] Last Admin: 06/23/18 00:06 Dose: Not Given Insulin Glargine 15 units/ (Miscellaneous Medication) 0.15 mls @ 0 mls/hr SC HS [facility] Last Admin: 06/22/18 20:46 Dose: 0.15 mls Insulin Glargine 15 units/ (Miscellaneous Medication) 0.15 mls @ 0 mls/hr SC QAM [facility] Last Admin: 06/23/18 08:04 Dose: 0.15 mls Sodium Acetate 40 meq/ Sodium Chloride 30 meq/ Potassium Chloride 20 meq/ Potassium Phosphate 30 mmol/ Calcium Chloride 10 meq/ Magnesium Sulfate 10 meq/ Multivitamins 10 ml/ Chromium/Copper/Manganese/Seleni/Zn 5 ml/ Fat Emulsion Intravenous 200 ml/Insulin Human Regular 30 units / Dextrose/Water/ Sterile Water/ Amino Acids 1,672.6159 mls @ 69.68 mls/hr IV 2200 [facility] Last Admin: 06/23/18 00:40 Dose: 1,672.6159 mls Micafungin Sodium 100 mg/ (Sodium Chloride) 100 mls @ 100 mls/hr IVPB Q24H [facility] Last Admin: 06/22/18 18:21 Dose: 100 mls Insulin Human Lispro (Humalog) 0 units SC .AGGRESSIVE SLIDING PRN; Protocol PRN Reason: AGGRESSIVE SLIDING SCALE Last Admin: 06/23/18 04:15 Dose: 6 unit Metoprolol Tartrate (Lopressor) 5 mg IVP Q6H [facility] Last Admin: 06/23/18 10:34 Dose: Not Given Mometasone Furoate/Formoterol Fumar (Dulera 200 Mcg/5 Mcg Inhaler) 2 puff INH BID-RT [facility] Last Admin: 06/23/18 07:08 Dose: 2 puff Morphine Sulfate (Morphine) 2 mg SLOW IVP Q2H PRN PRN Reason: Pain Last Admin: 06/23/18 07:52 Dose: 2 mg Ondansetron HCl (Zofran) 4 mg IVP Q6H PRN PRN Reason: Nausea Last Admin: 06/23/18 08:04 Dose: 4 mg Promethazine HCl (Phenergan) 25 mg IM Q4H PRN PRN Reason: Nausea Last Admin: 06/22/18 00:38 Dose: 25 mg Sodium Chloride (Flush - Normal Saline) 10 ml IVF PRN PRN PRN Reason: Saline Flush Last Admin: 06/15/18 21:16 Dose: 10 ml
--- NOTE | 2018-06-23 13:09 | PRG ---
DATE OF SERVICE: 06/23/2018 Ms. Werner still is not out of bed. She is having a small amount of bowel function now. She feels better today. Her pain is more controlled. PHYSICAL EXAMINATION: VITAL SIGNS: Afebrile. Her pulse is 115, respirations 20, O2 sat 92% on 3 liters. Urine output is 625 for the shift. Minimal stool. ABDOMEN: Soft, minimally distended. There is air and stool in her colostomy bag now, midline wound VAC. LABORATORY: White blood cell count is 12, hemoglobin is 9.6. Sodium 135, potassium is 3.9, creatini ne 0.7, sugar 199. ASSESSMENT: 1. Postop sigmoid colectomy, colostomy. 2. Chronic obstructive pulmonary disease. 3. Chronic deconditioning. PLAN: Encourage physical therapy. Continue Zosyn and antifungal. Continue TPN until tolerating mor e clears and then we will start to advance.
--- NOTE | 2018-06-23 16:30 | PRG ---
DATE OF SERVICE: 06/23/2018 SERVICE: Pulmonary Medicine. INTERVAL HISTORY: The patient is doing great from a respiratory standpoint. She is breathing comfor tably. She actually looks quite a bit less toxic today. There is better color to her face. Otherwi se, there has been no interval change to her condition. She seems to be breathing a little bit easie r. Her belly pain is still present, but she is less distended today. OBJECTIVE: VITAL SIGNS: Afebrile, pulse 132, blood pressure 106/78, respirations 20, saturation 98% on room air . GENERAL: The patient is awake, alert, in no apparent distress. LUNGS: Decent air entry. There is a prolonged expiratory phase. I do not appreciate any wheezing. There are no crackles today. Rhonchi are minimal. HEART: Normal rate, regular. ABDOMEN: Soft. Tender to palpation throughout without rebound or guarding. Bowel sounds are presen t. MUSCULOSKELETAL: No cyanosis or clubbing. There is no pitting in the bilateral lower extremities. She continues to have trace to 1+ pitting in the sacral region. GENITOURINARY: Conner catheter in place. NEUROLOGIC: Grossly nonfocal. LABORATORY DATA: WBC 12.8, hemoglobin 9.6, platelets 484,000. Band count is currently 23%, which is stable/down trending. Blood sugars ranged from 149-241. Basic metabolic profile and liver function studies are otherwise unremarkable except for magnesium of 1.5. ASSESSMENT: 1. Acute hypoxic respiratory failure. 2. Chronic obstructive pulmonary disease with mild exacerbation secondary to abdominal distention, i mproving. 3. Gross peritonitis secondary to perforated large bowel. 4. Severe sepsis, improving. 7. Status post colectomy, postop day 10. DISCUSSION, AND PLAN: We will continue supportive care for the patient. Magnesium will be replaced. We will try to keep her roughly even over the next 24-48 hours. She remains on TPN and has IV flui ds running. Nebulized medications will be continued. We will try to mobilize her as much as she can tolerate.
[2018-06-23] MEDS: Micafungin 100 MG in Sodium Chloride 0.9% 100 ML IVPB SCH (18:13)
[2018-06-24] MEDS: HumaLOG 300 UNITS/3 ML VIAL SC PRN ×4 (00:05→15:53)
[2018-06-24] MEDS ORDERED: Sterile Water 10 ML VIAL IVP SCH (00:56)
[2018-06-24] MEDS ORDERED: Activase 2 MG VIAL CATH SCH (00:56)
[2018-06-24] MEDS: Metoprolol Tartrate 5 MG/5 ML VIAL IVP SCH ×3 (04:10→15:53)
[2018-06-24] MEDS: 1/2 NS w/KCL 20 mEq 1,000 ML IV SCH ×2 (04:45→15:54)
[2018-06-24 04:52] LABS: Band 3 % (5-11); Hemoglobin 9.6 g/dL (12.0-16.0); Hypochromia SLIGHT = 6-15 cells (100X) (0-5/hpf); Lymphocytes 14 % (21-51); MDiff Complete? YES; Mean Corpuscular HGB CONC 31.5 g/dL (32.0-36.0); Mean Corpuscular Hemoglobin 30.4 pg (27.0-31.0); Mean Corpuscular Volume 96.4 fL (78.0-98.0); Mean Platelet Volume 7.7 fL (7.4-10.4); Monocytes 5 % (0-10); Neutrophil 78 % (42-75); PLT Morphology Comment Appears Increased; Platelet Count 415 thou/uL (130-400); Red Blood Cell (RBC) Count 3.16 mill/uL (4.20-5.40); White Blood Cell (WBC) Count 12.5 thou/uL (4.8-10.8)
[2018-06-24 04:56] LABS: Anion Gap 13 mmol/L (10-20); BUN (Urea Nitrogen) 19 mg/dL (9.8-20.1); Calc. Creatinine Clearance 119 mL/min (70-130); Calcium 8.7 mg/dL (7.8-10.44); Carbon Dioxide 27 mmol/L (22-29); Cardiac Risk 7.6 (Less than 4.5); Chloride 97 mmol/L (98-107); Cholesterol 136 mg/dl (< 200 Desired); Estimated GFR-MDRD 81; Glucose 191 mg/dL (70-105); HDL Cholesterol 18 mg/dL (>60 Neg Risk); LDL Cholesterol, Calculated 79 mg/dL; Magnesium 1.4 mg/dL (1.6-2.6); Phosphorus 2.6 mg/dL (2.3-4.7); Potassium 3.5 mmol/L (3.5-5.1); Sodium 133 mmol/L (136-145); Triglycerides 197 mg/dL (Less than 150)
[2018-06-24] MEDS: Piperacillin/Tazobactam 3.375 GM in Sodium Chloride 0.9% 100 ML IVPB SCH ×4 (05:37→23:24)
[2018-06-24] MEDS: Mometasone/Formoterol 120 PUFF INHALER INH SCH ×2 (07:08→18:38)
[2018-06-24] MEDS: Enoxaparin Sodium 40 MG/0.4 ML SYRINGE SC SCH (07:56)
[2018-06-24] MEDS: Furosemide 40 MG/4 ML VIAL SLOW IVP SCH (07:56)
[2018-06-24] MEDS: Insulin Glargine 15 UNITS in Pre-Filled Syringe 1 EACH SC SCH ×2 (07:56→20:37)
[2018-06-24] MEDS: Famotidine/PF 20 mg/2ml Vial SLOW IVP SCH ×2 (07:56→20:30)
[2018-06-24] MEDS: Docusate 100 MG CAP PO SCH ×2 (07:57→20:30)
--- NOTE | 2018-06-24 12:32 | PDOC.GSPN ---
Surgery Progress Note: Subj - Subjective Patient reports: no new complaints (Not taking much po) Surgery Progress Note: Obj - Vital signs Vital signs: Vital Signs - Most Recent Temp Pulse Resp BP Pulse Ox 98.8 F 98 18 122/65 88 L 06/24/18 10:20 06/24/18 10:45 06/24/18 10:20 06/24/18 10:23 06/24/18 11:07 - Physical Exam General: no distress Respiratory: clear to auscultation Abdomen: soft, nondistended, appropriately tender Wound: wound vac, ostomy/colostomy (mucosa pink, stool in bag) Surgery Progress Note: Results - Labs Result Diagrams: 06/24/18 04:29 06/24/18 04:29 Lab results: Laboratory Results - last 24 hr 06/24/18 06/24/18 06/24/18 04:10 04:29 04:29 WBC 12.5 H RBC 3.16 L Hgb 9.6 L Hct 30.5 L MCV 96.4 MCH 30.4 MCHC 31.5 L RDW 13.0 Plt Count 415 H MPV 7.7 Neutrophils % (Manual) 78 H Band Neuts % (Manual) 3 L Lymphocytes % (Manual) 14 L Monocytes % (Manual) 5 Hypochromia SLIGHT = 6-15 cells Plt Morphology Comment Appears Increased H Sodium 133 L Potassium 3.5 Chloride 97 L Carbon Dioxide 27 Anion Gap 13 BUN 19 Creatinine 0.74 Estimated GFR (MDRD) 81 Glucose 191 H POC Glucose 216 H Calcium 8.7 Phosphorus 2.6 Magnesium 1.4 L Prealbumin Triglycerides 197 H Cholesterol 136 LDL Cholesterol, Calc 79 HDL Cholesterol 18 Heart Disease Risk Ratio 7.6 06/24/18 06/24/18 04:29 10:56 WBC RBC Hgb Hct MCV MCH MCHC RDW Plt Count MPV Neutrophils % (Manual) Band Neuts % (Manual) Lymphocytes % (Manual) Monocytes % (Manual) Hypochromia Plt Morphology Comment Sodium Potassium Chloride Carbon Dioxide Anion Gap BUN Creatinine Estimated GFR (MDRD) Glucose POC Glucose 289 H Calcium Phosphorus Magnesium Prealbumin 8.0 L Triglycerides Cholesterol LDL Cholesterol, Calc HDL Cholesterol Heart Disease Risk Ratio Surgery Progress Note: A/P - Problem (1) Sigmoid diverticulitis Current Visit: Yes Code(s): K57.32 - DVTRCLI OF LG INT W/O PERFORATION OR ABSCESS W/O BLEEDING Status: Deleted - Plan Plan: Overall improved -Advance to full liquids -continue to encourage to increase activity -Accuchecks much improved
--- NOTE | 2018-06-24 13:43 | PDOC.PN ---
- Subjective Encounter Start Date: 06/24/18 Encounter Start Time: 13:41 Subjective: feel OK. still not eating well due to Abd pain and not moving much either - Objective Resuscitation Status: Resuscitation Status FULL:Full Resuscitation MAR Reviewed: Yes Vital Signs & Weight: Vital Signs (12 hours) Temp Pulse Resp BP BP Pulse Ox Pulse Ox 06/24/18 11:07 88 L 06/24/18 10:45 98 06/24/18 10:23 130 H 122/65 06/24/18 10:20 98.8 F 106 H 18 139/78 93 L 06/24/18 07:31 98.7 F 134 H 20 101/63 95 06/24/18 07:30 98.7 F 98 20 95 06/24/18 07:05 101 H 94 L 06/24/18 04:35 103 H 121/83 06/24/18 04:20 115 H 115/73 06/24/18 04:10 120 H 108/70 06/24/18 03:00 18 96 06/24/18 02:58 115 H 112/75 06/24/18 02:44 114 H 20 Pulse Ox 06/24/18 11:07 88 L 06/24/18 10:45 06/24/18 10:23 06/24/18 10:20 06/24/18 07:31 06/24/18 07:30 06/24/18 07:05 06/24/18 04:35 06/24/18 04:20 06/24/18 04:10 06/24/18 03:00 06/24/18 02:58 06/24/18 02:44 Weight Admit Weight 200 lb 0.054 oz Weight 197 lb 14.4 oz Most Recent Monitor Data Heart Rate from ECG 110 NIBP 145/90 NIBP BP-Mean 140 Respiration from ECG 14 SpO2 95 I&O: 06/23/18 06/24/18 06/25/18 06:59 06:59 06:59 Intake Total 1716 6 Output Total 5269 2891 Balance -216 -1014 Result Diagrams: 06/24/18 04:29 06/24/18 04:29 Additional Labs: Accuchecks 06/24/18 06/24/18 06/24/18 10:56 04:10 00:04 POC Glucose 289 H 216 H 225 H 06/23/18 06/23/18 20:49 15:53 POC Glucose 242 H 257 H Microbiology 06/13/18 12:10 Colon Bacterial Culture - Final 06/13/18 12:10 Colon Anaerobic Culture - Final Anaerobic cocci Anaerobic cocci#2 Anaerobic Gram Negative Usman Anaerobic Gram Negative Usman#2 Anaerobic Gram Negative Usman#3 Laboratory Tests 06/24/18 04:29 Magnesium 1.4 L Phys Exam - Physical Examination Constitutional: NAD pale and tired looking HEENT: PERRLA, moist MMs, sclera anicteric, oral pharynx no lesions Neck: no nodes, no JVD, supple, full ROM Respiratory: no wheezing, no rales, no rhonchi Cardiovascular: RRR, no significant murmur Gastrointestinal: soft Wound Vac and drains,ostomy w stools.TTP Musculoskeletal: no edema, pulses present Neurological: non-focal, normal sensation, moves all 4 limbs Psychiatric: normal affect, A&O x 3 Dx/Plan (1) Peritonitis Code(s): K65.9 - PERITONITIS, UNSPECIFIED Status: Acute (2) Sepsis Code(s): A41.9 - SEPSIS, UNSPECIFIED ORGANISM Status: Acute (3) Diverticulitis of colon with perforation Code(s): K57.20 - DVTRCLI OF LG INT W PERFORATION AND ABSCESS W/O BLEEDING Status: Acute Comment: s/p laparotomy, sigmoid colectomy and colostomy (4) Anemia, normocytic normochromic Code(s): D64.9 - ANEMIA, UNSPECIFIED Status: Chronic (5) COPD (chronic obstructive pulmonary disease) Status: Chronic (6) Diabetes mellitus, type II Status: Chronic Qualifiers: Diabetes mellitus terminal operations manager insulin use: without terminal operations manager use Diabetes mellitus complication status: without complication Qualified Code(s): E11.9 - Type 2 diabetes mellitus without complications Comment: Uncontrolled (7) Hypertension Code(s): I10 - ESSENTIAL (PRIMARY) HYPERTENSION Status: Chronic Qualifiers: Hypertension type: essential hypertension Qualified Code(s): I10 - Essential (primary) hypertension (8) Obesity (BMI 30-39.9) Code(s): E66.9 - OBESITY, UNSPECIFIED Status: Chronic (9) Tobacco abuse Code(s): Z72.0 - TOBACCO USE Status: Chronic - Plan continue antibiotics, PT/OT, respiratory therapy, incentive spirometry, out of bed/ambulate, DVT proph w/SCDs Blood sugar still on higher side.Cont ISS and lantus 15 BID.ACCUCHECKS -: cont ABx.zosyn w Micafungin.Follow Cx results -: BP better controlle. on Metoprolol IV.Lisinopril on hold for now -: cont supportive care.cont TPN. -: replace and recheck lytes including Mag prn.am labs. * . Review of Systems - Review of Systems Constitutional: weakness, malaise. negative: fever, chills, sweats, other Respiratory: negative: Cough, Dry, Shortness of Breath, Hemoptysis, SOB with Excertion, Pleuritic Pain, Sputum, Wheezing Cardiovascular: negative: chest pain, palpitations, orthopnea, paroxysmal nocturnal dyspnea, edema, light headedness, other Gastrointestinal: Nausea, Abdominal Pain Genitourinary: negative: Dysuria, Frequency, Incontinence, Hematuria, Retention , Other Musculoskeletal: Back Pain. negative: Neck Pain, Shoulder Pain, Arm Pain, Hand Pain, Leg Pain, Foot Pain, Other Neurological: negative: Weakness, Numbness, Incoordination, Change in Speech, Confusion, Seizures, Other - Medications/Allergies Allergies/Adverse Reactions: Allergies Allergy/AdvReac Type Severity Reaction Status Date / Time Sulfa (Sulfonamide Allergy Severe Anaphylaxis Verified 06/25/17 19:45 Antibiotics) Medications: Current Medications Albuterol/Ipratropium (Duoneb) 3 ml NEB Q4H PRN PRN Reason: Wheezing Albuterol/Ipratropium (Duoneb) 3 ml NEB [id number] [facility] Last Admin: 06/24/18 10:45 Dose: 3 ml Dextrose/Water (Dextrose 50%) 25 gm SLOW IVP PRN PRN PRN Reason: Hypoglycemia Docusate Sodium (Colace) 100 mg PO BID [facility] Last Admin: 06/24/18 07:57 Dose: 100 mg Enoxaparin Sodium (Lovenox) 40 mg SC 0900 [facility] Last Admin: 06/24/18 07:56 Dose: 40 mg Famotidine (Pepcid) 20 mg SLOW IVP Q12HR [facility] Last Admin: 06/24/18 07:56 Dose: 20 mg Furosemide (Lasix) 40 mg SLOW IVP DAILY [facility] Last Admin: 06/24/18 07:56 Dose: 40 mg Glucagon (Glucagon) 1 mg IM PRN PRN PRN Reason: Hypoglycemia Hydralazine HCl (Apresoline) 10 mg SLOW IVP Q4H PRN PRN Reason: SBP > 170 or DBP > 100 Dextrose/Water (D5w) 1,000 mls @ 0 mls/hr IV .Q0M PRN PRN Reason: Hypoglycemia Last Admin: 06/16/18 13:05 Dose: 1,000 mls Piperacillin Sod/Tazobactam (Sod 3.375 gm/ Sodium Chloride) 100 mls @ 200 mls/ hr IVPB Q6HR [facility] Last Admin: 06/24/18 12:24 Dose: 100 mls Potassium Chloride/Sodium Chloride (1/2 Ns W/Kcl 20 Meq) 1,000 mls @ 100 mls/ hr IV .Q10H [facility] Last Admin: 06/24/18 04:45 Dose: Not Given Insulin Glargine 15 units/ (Miscellaneous Medication) 0.15 mls @ 0 mls/hr SC HS [facility] Last Admin: 06/23/18 20:49 Dose: 0.15 mls Insulin Glargine 15 units/ (Miscellaneous Medication) 0.15 mls @ 0 mls/hr SC QAM [facility] Last Admin: 06/24/18 07:56 Dose: 0.15 mls Sodium Acetate 40 meq/ Sodium Chloride 30 meq/ Potassium Chloride 20 meq/ Potassium Phosphate 30 mmol/ Calcium Chloride 10 meq/ Magnesium Sulfate 10 meq/ Multivitamins 10 ml/ Chromium/Copper/Manganese/Seleni/Zn 5 ml/ Fat Emulsion Intravenous 200 ml/Insulin Human Regular 30 units / Dextrose/Water/ Sterile Water/ Amino Acids 1,672.6159 mls @ 69.68 mls/hr IV 2200 [facility] Last Admin: 06/23/18 22:40 Dose: 1,672.6159 mls Micafungin Sodium 100 mg/ (Sodium Chloride) 100 mls @ 100 mls/hr IVPB Q24H [facility] Last Admin: 06/23/18 18:13 Dose: 100 mls Insulin Human Lispro (Humalog) 0 units SC .AGGRESSIVE SLIDING PRN; Protocol PRN Reason: AGGRESSIVE SLIDING SCALE Last Admin: 06/24/18 12:25 Dose: 9 unit Metoprolol Tartrate (Lopressor) 5 mg IVP Q6H [facility] Last Admin: 06/24/18 10:17 Dose: 5 mg Mometasone Furoate/Formoterol Fumar (Dulera 200 Mcg/5 Mcg Inhaler) 2 puff INH BID-RT [facility] Last Admin: 06/24/18 07:08 Dose: 2 puff Ondansetron HCl (Zofran) 4 mg IVP Q6H PRN PRN Reason: Nausea Last Admin: 06/23/18 08:04 Dose: 4 mg Promethazine HCl (Phenergan) 25 mg IM Q4H PRN PRN Reason: Nausea Last Admin: 06/22/18 00:38 Dose: 25 mg Sodium Chloride (Flush - Normal Saline) 10 ml IVF PRN PRN PRN Reason: Saline Flush Last Admin: 06/15/18 21:16 Dose: 10 ml
[2018-06-24] MEDS ORDERED: Magnesium Sulfate 4 GM in Sodium Chloride 0.9% 250 ML 250 ML IVPB SCH (17:30)
--- NOTE | 2018-06-24 17:36 | PRG ---
DATE OF SERVICE: 06/24/2018 SERVICE: Pulmonary Medicine. INTERVAL HISTORY: The patient indicates that she feels a little bit worse today. She continues to h ave some abdominal tenderness. Otherwise, she denies any current fevers, chills, shortness of breath , nausea or vomiting. She is tolerating a little bit of p.o. Otherwise, she has not changed signifi cantly. PHYSICAL EXAMINATION: VITAL SIGNS: Afebrile, pulse 98, blood pressure 103/66, respirations 15, saturation 88% on 3 liters nasal cannula. GENERAL: The patient is awake and alert, in no apparent distress. LUNGS: Decent air entry. There is a prolonged expiratory phase. Crackles are no longer present. T here is a touch of wheezing. No rhonchi appreciated. HEART: Tachycardic. Regular. ABDOMEN: Soft. Tender to palpation throughout without rebound or guarding. MUSCULOSKELETAL: No cyanosis or clubbing. There is no pitting in the bilateral lower extremities. NEUROLOGIC: Grossly nonfocal. LABORATORY DATA: WBC 12.5, hemoglobin 9.6, platelets 415,000. Neutrophil count is increasing, but t he band count is dropping off. Basic metabolic profile is unremarkable. Bicarbonate 27, sodium 133, chloride 97. Liver function studies are otherwise unremarkable. Magnesium 1.4 and gently down tren ding. ASSESSMENT: 1. Acute hypoxic respiratory failure. 2. Chronic obstructive pulmonary disease with mild exacerbation secondary to abdominal distention, i mproving. 3. Gross peritonitis secondary to perforated large bowel. 4. Severe sepsis, improving. 5. Status post colectomy, postop day number 11. PLAN AND DISCUSSION: I will replace the magnesium. PICC line will be placed. Once this is in place , the central line will be removed. We will drop her Lasix at this time as the patient is starting t o get a little bit volume down. Pulmonary Critical Care will continue to follow along for the time bienvenido bangura as she is at very high risk for respiratory failure in this tenuous period. Frequent nebulized medications will be continued.
[2018-06-24] MEDS ORDERED: Magnesium 2 GM/NS 0.9% 100 ML 2 GM in Premix Bag 1 BAG IVPB SCH (18:00)
[2018-06-24] MEDS: Micafungin 100 MG in Sodium Chloride 0.9% 100 ML IVPB SCH (18:41)
[2018-06-24] MEDS: Metoprolol Tartrate 25 MG TAB PO SCH (20:37)
[2018-06-24] MEDS: Sodium Acetate 2 mEq/ml 40 MEQ, Sodium Chloride 30 MEQ, Potassium Chloride 20 MEQ, Pota... IV SCH (22:16)
[2018-06-25] MEDS: HYDROcodone/Acetaminophen 10/325 mg Tablet PO PRN ×2 (02:30→19:29)
[2018-06-25] MEDS: 1/2 NS w/KCL 20 mEq 1,000 ML IV SCH ×3 (02:30→23:06)
[2018-06-25] MEDS: Piperacillin/Tazobactam 3.375 GM in Sodium Chloride 0.9% 100 ML IVPB SCH ×3 (06:17→17:10)
[2018-06-25] MEDS: HumaLOG 300 UNITS/3 ML VIAL SC PRN ×3 (06:18→17:17)
[2018-06-25 06:28] LABS: Band 20 % (5-11); Lymphocytes 16 % (21-51); MDiff Complete? YES; Mean Corpuscular HGB CONC 31.8 g/dL (32.0-36.0); Mean Corpuscular Hemoglobin 30.7 pg (27.0-31.0); Mean Corpuscular Volume 96.7 fL (78.0-98.0); Mean Platelet Volume 7.8 fL (7.4-10.4); Monocytes 12 % (0-10); Neutrophil 52 % (42-75); PLT Morphology Comment Appears Adequate; Platelet Count 421 thou/uL (130-400); RBC Distribution Width 13.4 % (11.5-14.5); Red Blood Cell (RBC) Count 2.92 mill/uL (4.20-5.40)
[2018-06-25 06:34] LABS: Anion Gap 11 mmol/L (10-20); BUN (Urea Nitrogen) 21 mg/dL (9.8-20.1); Calc. Creatinine Clearance 126 mL/min (70-130); Calcium 8.3 mg/dL (7.8-10.44); Carbon Dioxide 28 mmol/L (22-29); Cardiac Risk 10.5 (Less than 4.5); Chloride 97 mmol/L (98-107); Cholesterol 105 mg/dl (< 200 Desired); Estimated GFR-MDRD 86; Glucose 188 mg/dL (70-105); HDL Cholesterol 10 mg/dL (>60 Neg Risk); LDL Cholesterol, Calculated 60 mg/dL; Phosphorus 3.1 mg/dL (2.3-4.7); Potassium 3.4 mmol/L (3.5-5.1); Sodium 133 mmol/L (136-145); Triglycerides 175 mg/dL (Less than 150)
[2018-06-25] MEDS ORDERED: Activase 2 MG VIAL CATH SCH (07:00)
[2018-06-25] MEDS: Mometasone/Formoterol 120 PUFF INHALER INH SCH ×2 (07:39→19:00)
--- NOTE | 2018-06-25 09:34 | PDOC.GSPN ---
Surgery Progress Note: Subj - Subjective Patient reports: no new complaints (Not taking much po) Surgery Progress Note: Obj - Vital signs Vital signs: Vital Signs - Most Recent Temp Pulse Resp BP Pulse Ox 97.8 F 88 15 147/67 H 91 L 06/25/18 08:06 06/25/18 08:06 06/25/18 08:06 06/25/18 08:06 06/25/18 08:06 - Physical Exam General: no distress Cardiovascular: regular rate and rhythm Respiratory: coarse breath sounds Abdomen: soft, nondistended, appropriately tender Wound: wound vac, ostomy/colostomy (viable mucosa, stool in bag) Surgery Progress Note: Results - Labs Result Diagrams: 06/25/18 06:00 06/25/18 06:00 Lab results: Laboratory Results - last 24 hr 06/25/18 06/25/18 06/25/18 05:58 06:00 06:00 WBC 10.0 RBC 2.92 L Hgb 9.0 L Hct 28.3 L MCV 96.7 MCH 30.7 MCHC 31.8 L RDW 13.4 Plt Count 421 H MPV 7.8 Neutrophils % (Manual) 52 Band Neuts % (Manual) 20 H Lymphocytes % (Manual) 16 L Monocytes % (Manual) 12 H Plt Morphology Comment Appears Adequate Sodium 133 L Potassium 3.4 L Chloride 97 L Carbon Dioxide 28 Anion Gap 11 BUN 21 H Creatinine 0.70 Estimated GFR (MDRD) 86 Glucose 188 H POC Glucose 194 H Calcium 8.3 Phosphorus 3.1 Magnesium 2.0 Prealbumin Triglycerides 175 H Cholesterol 105 LDL Cholesterol, Calc 60 HDL Cholesterol 10 Heart Disease Risk Ratio 10.5 06/25/18 06:00 WBC RBC Hgb Hct MCV MCH MCHC RDW Plt Count MPV Neutrophils % (Manual) Band Neuts % (Manual) Lymphocytes % (Manual) Monocytes % (Manual) Plt Morphology Comment Sodium Potassium Chloride Carbon Dioxide Anion Gap BUN Creatinine Estimated GFR (MDRD) Glucose POC Glucose Calcium Phosphorus Magnesium Prealbumin 6.0 L Triglycerides Cholesterol LDL Cholesterol, Calc HDL Cholesterol Heart Disease Risk Ratio Surgery Progress Note: A/P - Problem (1) Sigmoid diverticulitis Current Visit: Yes Code(s): K57.32 - DVTRCLI OF LG INT W/O PERFORATION OR ABSCESS W/O BLEEDING Status: Deleted - Plan Plan: s/p hartmans for ruptured sigmoid -gi soft diet -dc tpn if liyah -cont PT
[2018-06-25] MEDS: Insulin Glargine 15 UNITS in Pre-Filled Syringe 1 EACH SC SCH ×2 (10:20→20:39)
[2018-06-25] MEDS: Enoxaparin Sodium 40 MG/0.4 ML SYRINGE SC SCH (10:23)
[2018-06-25] MEDS: Docusate 100 MG CAP PO SCH ×2 (10:23→19:29)
[2018-06-25] MEDS: Famotidine/PF 20 mg/2ml Vial SLOW IVP SCH ×2 (10:23→19:29)
[2018-06-25] MEDS: Metoprolol Tartrate 25 MG TAB PO SCH ×2 (12:09→19:30)
--- NOTE | 2018-06-25 12:26 | PRG ---
DATE OF SERVICE: 06/25/2018 SUBJECTIVE: The patient is about the same, had no acute complaints. OBJECTIVE: VITAL SIGNS: On exam, temperature is 98.6, pulse 100, respirations 18, O2 sat 100% on 3 liters, bloo d pressure 125/73. HEENT: Unremarkable. NECK: No JVD. LUNGS: Clear. CARDIAC: S1 and S2, regular. ABDOMEN: Obese, wound VAC in place. ASSESSMENT: The patient's pulmonary status is stable. Her oxygenation is adequate. She just needs time to heal. No further recommendations at this time.
--- NOTE | 2018-06-25 12:31 | PDOC.PN ---
- Subjective Encounter Start Date: 06/25/18 Encounter Start Time: 12:29 Subjective: feels weak but no new complaints -: ate a little bit this morning -: no more abd pain/n/v - Objective Resuscitation Status: Resuscitation Status FULL:Full Resuscitation MAR Reviewed: Yes Vital Signs & Weight: Vital Signs (12 hours) Temp Pulse Resp BP Pulse Ox 06/25/18 11:43 98.6 F 100 18 125/73 100 06/25/18 08:06 97.8 F 88 15 147/67 H 91 L 06/25/18 07:45 100 18 100 06/25/18 07:40 100 06/25/18 07:39 100 18 100 06/25/18 04:42 98.6 F 100 20 106/69 96 06/25/18 02:28 97 20 06/25/18 01:06 98.4 F 93 18 105/65 91 L Weight Admit Weight 200 lb 0.054 oz Weight 197 lb 14.4 oz Most Recent Monitor Data Heart Rate from ECG 110 NIBP 145/90 NIBP BP-Mean 140 Respiration from ECG 14 SpO2 95 I&O: 06/24/18 06/25/18 06/26/18 06:59 06:59 06:59 Intake Total 20250 Output Total 3340 1920 1225 Balance -1314 -1920 455 Result Diagrams: 06/25/18 06:00 06/25/18 06:00 Additional Labs: Accuchecks 06/25/18 06/25/18 06/24/18 10:48 05:58 20:32 POC Glucose 244 H 194 H 191 H 06/24/18 15:16 POC Glucose 271 H Microbiology 06/13/18 12:10 Colon Bacterial Culture - Final 06/13/18 12:10 Colon Anaerobic Culture - Final Anaerobic cocci Anaerobic cocci#2 Anaerobic Gram Negative Usman Anaerobic Gram Negative Usman#2 Anaerobic Gram Negative Usman#3 Phys Exam - Physical Examination Constitutional: NAD weak and tired looking HEENT: PERRLA, moist MMs, sclera anicteric, oral pharynx no lesions Neck: no nodes, no JVD, supple, full ROM Respiratory: no wheezing, no rales, no rhonchi, clear to auscultation bilateral Cardiovascular: RRR, no significant murmur Gastrointestinal: soft, no distention ostomy,drain and wound vac in place.liquid brown stools Musculoskeletal: no edema, pulses present Neurological: non-focal, normal sensation, moves all 4 limbs Psychiatric: normal affect, A&O x 3 Skin: no rash Dx/Plan (1) Peritonitis Code(s): K65.9 - PERITONITIS, UNSPECIFIED Status: Acute Comment: on ABx (2) Sepsis Code(s): A41.9 - SEPSIS, UNSPECIFIED ORGANISM Status: Acute (3) Diverticulitis of colon with perforation Code(s): K57.20 - DVTRCLI OF LG INT W PERFORATION AND ABSCESS W/O BLEEDING Status: Acute Comment: s/p laparotomy, sigmoid colectomy and colostomy (4) Anemia, normocytic normochromic Code(s): D64.9 - ANEMIA, UNSPECIFIED Status: Chronic (5) COPD (chronic obstructive pulmonary disease) Status: Chronic (6) Diabetes mellitus, type II Status: Chronic Qualifiers: Diabetes mellitus senior care insulin use: without rn long term care use Diabetes mellitus complication status: without complication Qualified Code(s): E11.9 - Type 2 diabetes mellitus without complications Comment: Uncontrolled (7) Hypertension Code(s): I10 - ESSENTIAL (PRIMARY) HYPERTENSION Status: Chronic Qualifiers: Hypertension type: essential hypertension Qualified Code(s): I10 - Essential (primary) hypertension (8) Obesity (BMI 30-39.9) Code(s): E66.9 - OBESITY, UNSPECIFIED Status: Chronic (9) Tobacco abuse Code(s): Z72.0 - TOBACCO USE Status: Chronic - Plan continue antibiotics, PT/OT, respiratory therapy, incentive spirometry, out of bed/ambulate, DVT proph w/SCDs cont supportiv ecare. encourged Po intake. -: Blood sugar better controlled. cont ISS -: daily labs.replace & recheck lytes.on TPN -: BP controlled on metoprolol.monitor. -: cont ABx.on Zosyn with micafungin.Cx polymicrobial * . Review of Systems - Review of Systems Constitutional: weakness, malaise. negative: fever, chills, sweats, other ENT: negative: Ear Pain, Ear Discharge, Nose Pain, Nose Discharge, Nose Congestion, Mouth Pain, Mouth Swelling, Throat Pain, Throat Swelling, Other Respiratory: negative: Cough, Dry, Shortness of Breath, Hemoptysis, SOB with Excertion, Pleuritic Pain, Sputum, Wheezing Cardiovascular: negative: chest pain, palpitations, orthopnea, paroxysmal nocturnal dyspnea, edema, light headedness, other Gastrointestinal: Abdominal Pain. negative: Nausea, Vomiting, Diarrhea, Constipation, Melena, Hematochezia, Other Genitourinary: negative: Dysuria, Frequency, Incontinence, Hematuria, Retention , Other Musculoskeletal: negative: Neck Pain, Shoulder Pain, Arm Pain, Back Pain, Hand Pain, Leg Pain, Foot Pain, Other Skin: negative: Rash, Lesions, Isaiah, Bruising, Other Neurological: negative: Weakness, Numbness, Incoordination, Change in Speech, Confusion, Seizures, Other - Medications/Allergies Allergies/Adverse Reactions: Allergies Allergy/AdvReac Type Severity Reaction Status Date / Time Sulfa (Sulfonamide Allergy Severe Anaphylaxis Verified 06/25/17 19:45 Antibiotics) Medications: Current Medications Hydrocodone Bitart/Acetaminophen ([place] 10/325) 1 tab PO Q4H PRN PRN Reason: Moderate Pain (4-6) Hydrocodone Bitart/Acetaminophen ([place] 10/325) 2 tab PO Q4H PRN PRN Reason: PAIN-SEV 1ST LINE Last Admin: 06/25/18 02:30 Dose: 2 tab Albuterol/Ipratropium (Duoneb) 3 ml NEB Q4H PRN PRN Reason: Wheezing Albuterol/Ipratropium (Duoneb) 3 ml NEB [id number] [facility] Last Admin: 06/25/18 07:45 Dose: 3 ml Alteplase, Recombinant (Cathflo) 2 mg CATH ASDIR [facility] Dextrose/Water (Dextrose 50%) 25 gm SLOW IVP PRN PRN PRN Reason: Hypoglycemia Docusate Sodium (Colace) 100 mg PO BID [facility] Last Admin: 06/25/18 10:23 Dose: 100 mg Enoxaparin Sodium (Lovenox) 40 mg SC 0900 [facility] Last Admin: 06/25/18 10:23 Dose: 40 mg Famotidine (Pepcid) 20 mg SLOW IVP Q12HR [facility] Last Admin: 06/25/18 10:23 Dose: 20 mg Glucagon (Glucagon) 1 mg IM PRN PRN PRN Reason: Hypoglycemia Hydralazine HCl (Apresoline) 10 mg SLOW IVP Q4H PRN PRN Reason: SBP > 170 or DBP > 100 Dextrose/Water (D5w) 1,000 mls @ 0 mls/hr IV .Q0M PRN PRN Reason: Hypoglycemia Last Admin: 06/16/18 13:05 Dose: 1,000 mls Piperacillin Sod/Tazobactam (Sod 3.375 gm/ Sodium Chloride) 100 mls @ 200 mls/ hr IVPB Q6HR [facility] Last Admin: 06/25/18 12:09 Dose: 100 mls Potassium Chloride/Sodium Chloride (1/2 Ns W/Kcl 20 Meq) 1,000 mls @ 100 mls/ hr IV .Q10H [facility] Last Admin: 06/25/18 12:10 Dose: 1,000 mls Insulin Glargine 15 units/ (Miscellaneous Medication) 0.15 mls @ 0 mls/hr SC HS [facility] Last Admin: 06/24/18 20:37 Dose: 0.15 mls Insulin Glargine 15 units/ (Miscellaneous Medication) 0.15 mls @ 0 mls/hr SC QAM [facility] Last Admin: 06/25/18 10:20 Dose: 0.15 mls Sodium Acetate 40 meq/ Sodium Chloride 30 meq/ Potassium Chloride 20 meq/ Potassium Phosphate 30 mmol/ Calcium Chloride 10 meq/ Magnesium Sulfate 10 meq/ Multivitamins 10 ml/ Chromium/Copper/Manganese/Seleni/Zn 5 ml/ Fat Emulsion Intravenous 200 ml/Insulin Human Regular 30 units / Dextrose/Water/ Sterile Water/ Amino Acids 1,672.6159 mls @ 69.68 mls/hr IV 2200 [facility] Last Admin: 06/24/18 22:16 Dose: 1,672.6159 mls Micafungin Sodium 100 mg/ (Sodium Chloride) 100 mls @ 100 mls/hr IVPB Q24H [facility] Last Admin: 06/24/18 18:41 Dose: 100 mls Insulin Human Lispro (Humalog) 0 units SC .AGGRESSIVE SLIDING PRN; Protocol PRN Reason: AGGRESSIVE SLIDING SCALE Last Admin: 06/25/18 12:08 Dose: 6 unit Metoprolol Tartrate (Lopressor) 25 mg PO BID [facility] Last Admin: 06/25/18 12:09 Dose: 25 mg Mometasone Furoate/Formoterol Fumar (Dulera 200 Mcg/5 Mcg Inhaler) 2 puff INH BID-RT [facility] Last Admin: 06/25/18 07:39 Dose: 2 puff Morphine Sulfate (Morphine) 2 mg SLOW IVP Q4H PRN PRN Reason: Moderate Pain (1-5) 2ND LINE Last Admin: 06/25/18 06:39 Dose: 2 mg Morphine Sulfate (Morphine) 4 mg SLOW IVP Q4H PRN PRN Reason: Severe Pain (7-10) 2ND LINE Last Admin: 06/24/18 20:36 Dose: 4 mg Ondansetron HCl (Zofran) 4 mg IVP Q6H PRN PRN Reason: Nausea Last Admin: 06/23/18 08:04 Dose: 4 mg Promethazine HCl (Phenergan) 25 mg IM Q4H PRN PRN Reason: Nausea Last Admin: 06/22/18 00:38 Dose: 25 mg Sodium Chloride (Flush - Normal Saline) 10 ml IVF PRN PRN PRN Reason: Saline Flush Last Admin: 06/15/18 21:16 Dose: 10 ml
[2018-06-25] MEDS: Micafungin 100 MG in Sodium Chloride 0.9% 100 ML IVPB SCH (18:21)
[2018-06-25] MEDS: Sodium Acetate 2 mEq/ml 40 MEQ, Sodium Chloride 30 MEQ, Potassium Chloride 20 MEQ, Pota... IV SCH (23:02)
[2018-06-26] MEDS: Piperacillin/Tazobactam 3.375 GM in Sodium Chloride 0.9% 100 ML IVPB SCH ×5 (00:02→23:21)
[2018-06-26] MEDS: HYDROcodone/Acetaminophen 10/325 mg Tablet PO PRN ×3 (01:30→23:41)
[2018-06-26 04:55] LABS: Anion Gap 11 mmol/L (10-20); BUN (Urea Nitrogen) 17 mg/dL (9.8-20.1); Calc. Creatinine Clearance 140 mL/min (70-130); Calcium 8.4 mg/dL (7.8-10.44); Carbon Dioxide 25 mmol/L (22-29); Chloride 98 mmol/L (98-107); Estimated GFR-MDRD Greater than 90; Glucose 148 mg/dL (70-105); Potassium 3.5 mmol/L (3.5-5.1); Sodium 130 mmol/L (136-145)
[2018-06-26 06:04] LABS: Band 1 % (5-11); Hemoglobin 8.2 g/dL (12.0-16.0); Hypochromia SLIGHT = 6-15 cells (100X) (0-5/hpf); Lymphocytes 24 % (21-51); MDiff Complete? YES; Mean Corpuscular HGB CONC 31.2 g/dL (32.0-36.0); Mean Corpuscular Hemoglobin 30.1 pg (27.0-31.0); Mean Corpuscular Volume 96.4 fL (78.0-98.0); Mean Platelet Volume 8.1 fL (7.4-10.4); Monocytes 4 % (0-10); Neutrophil 71 % (42-75); PLT Morphology Comment Appears Adequate; Platelet Count 310 thou/uL (130-400); RBC Distribution Width 13.5 % (11.5-14.5); Red Blood Cell (RBC) Count 2.73 mill/uL (4.20-5.40); White Blood Cell (WBC) Count 9.2 thou/uL (4.8-10.8)
[2018-06-26] MEDS: 1/2 NS w/KCL 20 mEq 1,000 ML IV SCH (08:05)
[2018-06-26] MEDS: Docusate 100 MG CAP PO SCH ×2 (09:26→20:31)
[2018-06-26] MEDS: Famotidine/PF 20 mg/2ml Vial SLOW IVP SCH ×2 (09:26→20:31)
[2018-06-26] MEDS: Metoprolol Tartrate 25 MG TAB PO SCH ×2 (09:26→20:31)
[2018-06-26] MEDS: Enoxaparin Sodium 40 MG/0.4 ML SYRINGE SC SCH (09:27)
[2018-06-26] MEDS: Insulin Glargine 15 UNITS in Pre-Filled Syringe 1 EACH SC SCH ×2 (09:31→20:30)
[2018-06-26] MEDS: Mometasone/Formoterol 120 PUFF INHALER INH SCH ×2 (09:32→18:30)
[2018-06-26] MEDS: Sodium Chloride 0.9% 1,000 ML IV SCH (10:29)
--- NOTE | 2018-06-26 11:21 | PDOC.PN ---
- Subjective Encounter Start Date: 06/26/18 Encounter Start Time: 11:21 Subjective: not eating much.feels weak and not able to get OOB much -: no significant Abd pain - Objective Resuscitation Status: Resuscitation Status FULL:Full Resuscitation MAR Reviewed: Yes Vital Signs & Weight: Vital Signs (12 hours) Temp Pulse Resp BP Pulse Ox 06/26/18 09:33 93 L 06/26/18 09:32 97 18 98 06/26/18 09:25 96 18 93 L 06/26/18 03:58 98.5 F 96 18 101/64 98 06/26/18 02:59 85 18 95 06/26/18 00:34 96 06/26/18 00:00 98.8 F 86 16 92/65 85 L 06/25/18 23:24 86 16 96 Weight Admit Weight 200 lb 0.054 oz Weight 197 lb 14.4 oz Most Recent Monitor Data Heart Rate from ECG 110 NIBP 145/90 NIBP BP-Mean 140 Respiration from ECG 14 SpO2 95 I&O: 06/25/18 06/26/18 06/27/18 06:59 06:59 06:59 Intake Total 4521 Output Total 1920 2880 Balance -1920 1641 Result Diagrams: 06/26/18 04:28 06/26/18 04:28 Additional Labs: Accuchecks 06/26/18 06/26/18 06/25/18 10:35 05:53 19:29 POC Glucose 180 H 110 228 H 06/25/18 06/25/18 16:02 10:48 POC Glucose 260 H 244 H Phys Exam - Physical Examination Constitutional: NAD HEENT: PERRLA, moist MMs, sclera anicteric, oral pharynx no lesions Neck: no nodes, no JVD, supple, full ROM Respiratory: no wheezing, no rales, no rhonchi, clear to auscultation bilateral Cardiovascular: RRR, no significant murmur, no rub Gastrointestinal: soft, non-tender, no distention, positive bowel sounds Musculoskeletal: no edema, pulses present Neurological: non-focal, normal sensation, moves all 4 limbs Psychiatric: normal affect, A&O x 3 Skin: no rash Dx/Plan (1) Peritonitis Code(s): K65.9 - PERITONITIS, UNSPECIFIED Status: Acute Comment: on ABx (2) Sepsis Code(s): A41.9 - SEPSIS, UNSPECIFIED ORGANISM Status: Acute (3) Diverticulitis of colon with perforation Code(s): K57.20 - DVTRCLI OF LG INT W PERFORATION AND ABSCESS W/O BLEEDING Status: Acute Comment: s/p laparotomy, sigmoid colectomy and colostomy (4) Anemia, normocytic normochromic Code(s): D64.9 - ANEMIA, UNSPECIFIED Status: Chronic (5) COPD (chronic obstructive pulmonary disease) Status: Chronic (6) Diabetes mellitus, type II Status: Chronic Qualifiers: Diabetes mellitus bed bug exterminator insulin use: without bed bug exterminator use Diabetes mellitus complication status: without complication Qualified Code(s): E11.9 - Type 2 diabetes mellitus without complications Comment: Uncontrolled (7) Hypertension Code(s): I10 - ESSENTIAL (PRIMARY) HYPERTENSION Status: Chronic Qualifiers: Hypertension type: essential hypertension Qualified Code(s): I10 - Essential (primary) hypertension (8) Obesity (BMI 30-39.9) Code(s): E66.9 - OBESITY, UNSPECIFIED Status: Chronic (9) Tobacco abuse Code(s): Z72.0 - TOBACCO USE Status: Chronic - Plan continue antibiotics, PT/OT, out of bed/ambulate, DVT proph w/SCDs hemodynamically stable. -: encourage ambulation & PO intake -: Change Ensure to glucerna as pt is diabetic. cont ISS w accuchecks -: BP controlled on BB.cont to monitor -: am labs. H/h stable. * . Review of Systems - Review of Systems Constitutional: weakness, malaise. negative: fever, chills, sweats, other Respiratory: negative: Cough, Dry, Shortness of Breath, Hemoptysis, SOB with Excertion, Pleuritic Pain, Sputum, Wheezing Cardiovascular: negative: chest pain, palpitations, orthopnea, paroxysmal nocturnal dyspnea, edema, light headedness, other Gastrointestinal: Nausea Genitourinary: negative: Dysuria, Frequency, Incontinence, Hematuria, Retention , Other Musculoskeletal: negative: Neck Pain, Shoulder Pain, Arm Pain, Back Pain, Hand Pain, Leg Pain, Foot Pain, Other Skin: negative: Rash, Lesions, Isaiah, Bruising, Other Neurological: negative: Weakness, Numbness, Incoordination, Change in Speech, Confusion, Seizures, Other - Medications/Allergies Allergies/Adverse Reactions: Allergies Allergy/AdvReac Type Severity Reaction Status Date / Time Sulfa (Sulfonamide Allergy Severe Anaphylaxis Verified 06/25/17 19:45 Antibiotics) Medications: Current Medications Hydrocodone Bitart/Acetaminophen ([place] 10/325) 1 tab PO Q4H PRN PRN Reason: Moderate Pain (4-6) Last Admin: 06/25/18 19:29 Dose: 1 tab Hydrocodone Bitart/Acetaminophen ([place] 10/325) 2 tab PO Q4H PRN PRN Reason: PAIN-SEV 1ST LINE Last Admin: 06/26/18 01:30 Dose: 2 tab Albuterol/Ipratropium (Duoneb) 3 ml NEB Q4H PRN PRN Reason: Wheezing Albuterol/Ipratropium (Duoneb) 3 ml NEB [id number] [facility] Last Admin: 06/26/18 09:25 Dose: 3 ml Alteplase, Recombinant (Cathflo) 2 mg CATH ASDIR [facility] Dextrose/Water (Dextrose 50%) 25 gm SLOW IVP PRN PRN PRN Reason: Hypoglycemia Docusate Sodium (Colace) 100 mg PO BID [facility] Last Admin: 06/26/18 09:26 Dose: 100 mg Enoxaparin Sodium (Lovenox) 40 mg SC 0900 [facility] Last Admin: 06/26/18 09:27 Dose: 40 mg Famotidine (Pepcid) 20 mg SLOW IVP Q12HR [facility] Last Admin: 06/26/18 09:26 Dose: 20 mg Glucagon (Glucagon) 1 mg IM PRN PRN PRN Reason: Hypoglycemia Hydralazine HCl (Apresoline) 10 mg SLOW IVP Q4H PRN PRN Reason: SBP > 170 or DBP > 100 Dextrose/Water (D5w) 1,000 mls @ 0 mls/hr IV .Q0M PRN PRN Reason: Hypoglycemia Last Admin: 06/16/18 13:05 Dose: 1,000 mls Piperacillin Sod/Tazobactam (Sod 3.375 gm/ Sodium Chloride) 100 mls @ 200 mls/ hr IVPB Q6HR [facility] Last Admin: 06/26/18 06:39 Dose: 100 mls Insulin Glargine 15 units/ (Miscellaneous Medication) 0.15 mls @ 0 mls/hr SC HS [facility] Last Admin: 06/25/18 20:39 Dose: 0.15 mls Insulin Glargine 15 units/ (Miscellaneous Medication) 0.15 mls @ 0 mls/hr SC QAM [facility] Last Admin: 06/26/18 09:31 Dose: 0.15 mls Sodium Acetate 40 meq/ Sodium Chloride 30 meq/ Potassium Chloride 20 meq/ Potassium Phosphate 30 mmol/ Calcium Chloride 10 meq/ Magnesium Sulfate 10 meq/ Multivitamins 10 ml/ Chromium/Copper/Manganese/Seleni/Zn 5 ml/ Fat Emulsion Intravenous 200 ml/Insulin Human Regular 30 units / Dextrose/Water/ Sterile Water/ Amino Acids 1,672.6159 mls @ 69.68 mls/hr IV 2200 [facility] Last Admin: 06/25/18 23:02 Dose: 1,672.6159 mls Micafungin Sodium 100 mg/ (Sodium Chloride) 100 mls @ 100 mls/hr IVPB Q24H [facility] Last Admin: 06/25/18 18:21 Dose: 100 mls Sodium Chloride (Normal Saline 0.9%) 1,000 mls @ 30 mls/hr IV .Q24H [facility] Last Admin: 06/26/18 10:29 Dose: 1,000 mls Insulin Human Lispro (Humalog) 0 units SC .AGGRESSIVE SLIDING PRN; Protocol PRN Reason: AGGRESSIVE SLIDING SCALE Last Admin: 06/25/18 17:17 Dose: 9 unit Metoprolol Tartrate (Lopressor) 25 mg PO BID [facility] Last Admin: 06/26/18 09:26 Dose: 25 mg Mometasone Furoate/Formoterol Fumar (Dulera 200 Mcg/5 Mcg Inhaler) 2 puff INH BID-RT [facility] Last Admin: 06/26/18 09:32 Dose: 2 puff Morphine Sulfate (Morphine) 2 mg SLOW IVP Q4H PRN PRN Reason: Moderate Pain (1-5) 2ND LINE Last Admin: 06/26/18 09:38 Dose: 2 mg Morphine Sulfate (Morphine) 4 mg SLOW IVP Q4H PRN PRN Reason: Severe Pain (7-10) 2ND LINE Last Admin: 06/24/18 20:36 Dose: 4 mg Ondansetron HCl (Zofran) 4 mg IVP Q6H PRN PRN Reason: Nausea Last Admin: 06/23/18 08:04 Dose: 4 mg Promethazine HCl (Phenergan) 25 mg IM Q4H PRN PRN Reason: Nausea Last Admin: 06/22/18 00:38 Dose: 25 mg Sodium Chloride (Flush - Normal Saline) 10 ml IVF PRN PRN PRN Reason: Saline Flush Last Admin: 06/15/18 21:16 Dose: 10 ml
--- NOTE | 2018-06-26 11:49 | PRG ---
DATE OF SERVICE: 06/26/2018 SUBJECTIVE: The patient is about the same. She apparently is not participating very well with physi hilton therapy. PHYSICAL EXAMINATION: VITAL SIGNS: On exam, temperature is 98.5, pulse 97, respirations 18, O2 sat 93% on 2-1/2 liters. HEENT: Unremarkable. NECK: No JVD. LUNGS: Poor air movement towards the bases. CARDIAC: S1 and S2, regular. ABDOMEN: Soft. Multiple wounds noted. Multiple drains noted. LABORATORY DATA: White blood cell count 9.2, hematocrit 26.3, platelet count 310. Sodium 130, potas sium 3.5, BUN 17, creatinine 0.6, glucose 148. ASSESSMENT: 1. Severe deconditioning. 2. Status post laparotomy. PLAN: I encouraged her to get physical therapy and do the rehab that she needs to get better. Her o xygenation is stable.
[2018-06-26] MEDS: HumaLOG 300 UNITS/3 ML VIAL SC PRN ×3 (12:30→20:33)
--- NOTE | 2018-06-26 15:33 | PRG ---
DATE OF SERVICE: 06/26/2018 SUBJECTIVE: The patient says she just feels cold. She is complaining of her hip, she says this is a rthritis, not really having any significant belly pain. She has had a couple episodes of mild nausea , but she is tolerating full liquids to some degree. She is still on TPN. OBJECTIVE: VITAL SIGNS: Her temperature is 98.5, pulse 97, O2 sat is 93%. Her blood pressure is 101/64. GENERAL: She is awake. She is on oxygen 2 liters. She has had a 2500 out her Conner, 225 out her os jesús, 5 out of the JORGE L. LABORATORY DATA: Her white count today is 9.2, H&H 8.2 and 26, platelet count 310,000. Sodium is do wn to 130. IMPRESSION: She may be getting a little fluid overloaded. PLAN: Decrease IV rate.
[2018-06-26] MEDS: Micafungin 100 MG in Sodium Chloride 0.9% 100 ML IVPB SCH (18:09)
[2018-06-26] MEDS: Cepastat Lozenges 1 LOZ PO PRN ×2 (20:45→23:36)
[2018-06-26] MEDS: Sodium Acetate 2 mEq/ml 40 MEQ, Sodium Chloride 30 MEQ, Potassium Chloride 20 MEQ, Pota... IV SCH (23:21)
[2018-06-27] MEDS: Piperacillin/Tazobactam 3.375 GM in Sodium Chloride 0.9% 100 ML IVPB SCH ×3 (05:04→17:00)
[2018-06-27 05:26] LABS: Hemoglobin 8.2 g/dL (12.0-16.0); Mean Corpuscular HGB CONC 32.4 g/dL (32.0-36.0); Mean Corpuscular Hemoglobin 31.2 pg (27.0-31.0); Mean Corpuscular Volume 96.4 fL (78.0-98.0); Mean Platelet Volume 7.8 fL (7.4-10.4); Platelet Count 333 thou/uL (130-400); RBC Distribution Width 13.4 % (11.5-14.5); Red Blood Cell (RBC) Count 2.64 mill/uL (4.20-5.40); White Blood Cell (WBC) Count 7.9 thou/uL (4.8-10.8)
[2018-06-27 05:27] LABS: Band 22 % (5-11); Eosinophils 2 % (0-10); Lymphocytes 21 % (21-51); MDiff Complete? YES; Monocytes 10 % (0-10); Neutrophil 45 % (42-75); PLT Morphology Comment Appears Adequate
[2018-06-27 05:33] LABS: Anion Gap 10 mmol/L (10-20); BUN (Urea Nitrogen) 12 mg/dL (9.8-20.1); Calc. Creatinine Clearance 152 mL/min (70-130); Calcium 8.3 mg/dL (7.8-10.44); Carbon Dioxide 25 mmol/L (22-29); Chloride 100 mmol/L (98-107); Estimated GFR-MDRD Greater than 90; Glucose 108 mg/dL (70-105); Potassium 3.4 mmol/L (3.5-5.1); Sodium 132 mmol/L (136-145)
[2018-06-27] MEDS: Mometasone/Formoterol 120 PUFF INHALER INH SCH ×2 (07:13→19:47)
[2018-06-27] MEDS: Insulin Glargine 15 UNITS in Pre-Filled Syringe 1 EACH SC SCH ×2 (08:59→22:02)
[2018-06-27] MEDS: Enoxaparin Sodium 40 MG/0.4 ML SYRINGE SC SCH (09:00)
[2018-06-27] MEDS: Metoprolol Tartrate 25 MG TAB PO SCH ×2 (09:00→22:02)
[2018-06-27] MEDS: HYDROcodone/Acetaminophen 10/325 mg Tablet PO PRN ×2 (09:00→20:23)
[2018-06-27] MEDS: Famotidine/PF 20 mg/2ml Vial SLOW IVP SCH ×2 (09:00→22:01)
[2018-06-27] MEDS: Docusate 100 MG CAP PO SCH ×2 (09:00→22:01)
[2018-06-27] MEDS ORDERED: Furosemide 40 MG/4 ML VIAL SLOW IVP SCH (10:45)
--- NOTE | 2018-06-27 10:53 | PRG ---
DATE OF SERVICE: 06/27/2018 SERVICE: Pulmonary Medicine. INTERVAL HISTORY: The patient is doing great from a respiratory standpoint. She denies any current chest pain. She is having slightly increasing shortness of breath today. There has been no interval change to her condition otherwise. She is going down for a PICC line today. PHYSICAL EXAMINATION: VITAL SIGNS: Afebrile, pulse 114, blood pressure 136/89, respirations 20, saturation 93% on 3 liters nasal cannula. GENERAL: The patient is awake and alert, in no apparent distress. LUNGS: Decent air entry. Dependent crackles are returning. There is a prolonged expiratory phase. I do not appreciate wheezing. Rhonchi have improved. HEART: Tachycardic. Regular. ABDOMEN: Soft, nontender, nondistended. Bowel sounds are positive. MUSCULOSKELETAL: No cyanosis or clubbing. There is no pitting in the bilateral lower extremities. NEUROLOGIC: Grossly nonfocal. LABORATORY DATA: WBC 7.9, hemoglobin 8.2, platelets 333,000. Blood sugar 132. Basic metabolic profile is otherwise unremarkable. Potassium is 3.4. ASSESSMENT: 1. Acute hypoxic respiratory failure, improving. 2. Chronic obstructive pulmonary disease with mild exacerbation secondary to abdominal distention, improving. 3. Gross peritonitis secondary to perforated large bowel. 4. Status post colectomy, postop day #14. 5. Severe sepsis, resolving. DISCUSSION AND PLAN: We will replace the potassium. Also give her a single dose of Lasix today as she got a touch more volume up over the weekend. We will continue our mobilization efforts. Pulmonary and Critical Care will continue to follow along. RASHAD
[2018-06-27] MEDS: Sodium Chloride 0.9% 1,000 ML IV SCH (11:22)
[2018-06-27] MEDS: Potassium Chloride 20 MEQ TAB PO SCH ×2 (11:22→14:15)
[2018-06-27] MEDS: HumaLOG 300 UNITS/3 ML VIAL SC PRN ×2 (11:34→16:59)
--- NOTE | 2018-06-27 12:13 | PDOC.GSPN ---
Surgery Progress Note: Subj - Subjective Patient reports: no new complaints Surgery Progress Note: Obj - Vital signs Vital signs: Vital Signs - Most Recent Temp Pulse Resp BP Pulse Ox 98.3 F 100 18 136/86 95 06/27/18 08:00 06/27/18 10:40 06/27/18 10:40 06/27/18 08:00 06/27/18 10:40 - Physical Exam General: no distress Respiratory: clear to auscultation Abdomen: soft, nondistended, appropriately tender Wound: wound vac, ostomy/colostomy (with stool in bag) Surgery Progress Note: Results - Labs Result Diagrams: 06/27/18 05:05 06/27/18 05:05 Lab results: Laboratory Results - last 24 hr 06/27/18 06/27/18 06/27/18 05:05 05:05 05:23 WBC 7.9 RBC 2.64 L Hgb 8.2 L Hct 25.5 L MCV 96.4 MCH 31.2 H MCHC 32.4 RDW 13.4 Plt Count 333 MPV 7.8 Neutrophils % (Manual) 45 Band Neuts % (Manual) 22 H Lymphocytes % (Manual) 21 Monocytes % (Manual) 10 Eosinophils % (Manual) 2 Plt Morphology Comment Appears Adequate Sodium 132 L Potassium 3.4 L Chloride 100 Carbon Dioxide 25 Anion Gap 10 BUN 12 Creatinine 0.58 L Estimated GFR (MDRD) Greater than 90 Glucose 108 H POC Glucose 132 H Calcium 8.3 06/27/18 11:34 WBC RBC Hgb Hct MCV MCH MCHC RDW Plt Count MPV Neutrophils % (Manual) Band Neuts % (Manual) Lymphocytes % (Manual) Monocytes % (Manual) Eosinophils % (Manual) Plt Morphology Comment Sodium Potassium Chloride Carbon Dioxide Anion Gap BUN Creatinine Estimated GFR (MDRD) Glucose POC Glucose 175 H Calcium Surgery Progress Note: A/P - Problem (1) Sigmoid diverticulitis Current Visit: Yes Code(s): K57.32 - DVTRCLI OF LG INT W/O PERFORATION OR ABSCESS W/O BLEEDING Status: Deleted - Plan Plan: DC Tpn -needs to be more active -encouraged po intake
--- NOTE | 2018-06-27 12:14 | SPC ---
SONOGRAPHIC GUIDED LEFT UPPER EXTREMITY PICC: HISTORY: Infection. Need for long-term antibiotics. FINDINGS: After explaining the procedure and answering all questions, left upper extremity was prepped and drap ed in the usual sterile fashion. Sterile technique, buffered local anesthesia, sonographic guidance, and a 22-gauge needle were used to carefully access the left cephalic vein. Standard technique was used to place the tip of a 5 [place] dual-lumen PICC so that the tip lies at the level of the right at rium. Catheter was flushed and secured externally. The patient tolerated the procedure well and was returned in unchanged condition. Fluoro time 0 seconds. IMPRESSION: Left upper extremity PICC is ready for use. POS: [facility]
--- NOTE | 2018-06-27 16:50 | PDOC.PN ---
- Subjective Encounter Start Date: 06/27/18 Encounter Start Time: 16:48 Subjective: feels better but weak.eating more solids -: off of TPN - Objective Resuscitation Status: Resuscitation Status FULL:Full Resuscitation MAR Reviewed: Yes Vital Signs & Weight: Vital Signs (12 hours) Temp Pulse Resp BP BP Pulse Ox 06/27/18 15:47 98.7 F 107 H 20 115/84 93 L 06/27/18 13:30 95 20 95 06/27/18 12:00 98.7 F 95 18 136/69 92 L 06/27/18 10:40 100 18 95 06/27/18 08:55 98.3 F 120 H 20 91 L 06/27/18 08:00 98.3 F 114 H 20 136/86 93 L 06/27/18 05:46 85 18 95 Weight Admit Weight 200 lb 0.054 oz Weight 197 lb 14.4 oz Most Recent Monitor Data Heart Rate from ECG 110 NIBP 145/90 NIBP BP-Mean 140 Respiration from ECG 14 SpO2 95 I&O: 06/26/18 06/27/18 06/28/18 06:59 06:59 06:59 Intake Total 4521 3730 Output Total 2880 1473 Balance 1641 2257 Result Diagrams: 06/27/18 05:05 06/27/18 05:05 Additional Labs: Accuchecks 06/27/18 06/27/18 06/27/18 15:43 11:34 05:23 POC Glucose 211 H 175 H 132 H 06/26/18 20:27 POC Glucose 219 H Phys Exam - Physical Examination Constitutional: NAD pale HEENT: PERRLA, moist MMs, sclera anicteric, oral pharynx no lesions Neck: no nodes, no JVD, supple, full ROM Respiratory: no wheezing, no rales, no rhonchi, clear to auscultation bilateral Cardiovascular: RRR, no significant murmur, no rub Gastrointestinal: soft, no distention +ostomy,wound vac,drain Musculoskeletal: no edema, pulses present Neurological: non-focal, normal sensation, moves all 4 limbs Psychiatric: normal affect, A&O x 3 Skin: no rash Dx/Plan (1) Peritonitis Code(s): K65.9 - PERITONITIS, UNSPECIFIED Status: Acute Comment: on ABx (2) Sepsis Code(s): A41.9 - SEPSIS, UNSPECIFIED ORGANISM Status: Acute (3) Diverticulitis of colon with perforation Code(s): K57.20 - DVTRCLI OF LG INT W PERFORATION AND ABSCESS W/O BLEEDING Status: Acute Comment: s/p laparotomy, sigmoid colectomy and colostomy (4) Anemia, normocytic normochromic Code(s): D64.9 - ANEMIA, UNSPECIFIED Status: Chronic (5) COPD (chronic obstructive pulmonary disease) Status: Chronic (6) Diabetes mellitus, type II Status: Chronic Qualifiers: Diabetes mellitus termite treater insulin use: without termite treater use Diabetes mellitus complication status: without complication Qualified Code(s): E11.9 - Type 2 diabetes mellitus without complications Comment: Uncontrolled (7) Hypertension Code(s): I10 - ESSENTIAL (PRIMARY) HYPERTENSION Status: Chronic Qualifiers: Hypertension type: essential hypertension Qualified Code(s): I10 - Essential (primary) hypertension (8) Obesity (BMI 30-39.9) Code(s): E66.9 - OBESITY, UNSPECIFIED Status: Chronic (9) Tobacco abuse Code(s): Z72.0 - TOBACCO USE Status: Chronic - Plan PT/OT, DVT proph w/SCDs Blood sugar better controlled. cont ISS ,accuchecks. -: encourage for po inatke and ambulation -: HD stable. -: IM team will follow. meds reviewed again.Abx per primary team * . Review of Systems - Review of Systems Constitutional: weakness, malaise. negative: fever, chills, sweats, other ENT: negative: Ear Pain, Ear Discharge, Nose Pain, Nose Discharge, Nose Congestion, Mouth Pain, Mouth Swelling, Throat Pain, Throat Swelling, Other Respiratory: negative: Cough, Dry, Shortness of Breath, Hemoptysis, SOB with Excertion, Pleuritic Pain, Sputum, Wheezing Cardiovascular: negative: chest pain, palpitations, orthopnea, paroxysmal nocturnal dyspnea, edema, light headedness, other Gastrointestinal: Abdominal Pain. negative: Nausea, Vomiting, Diarrhea, Constipation, Melena, Hematochezia, Other Genitourinary: negative: Dysuria, Frequency, Incontinence, Hematuria, Retention , Other Musculoskeletal: negative: Neck Pain, Shoulder Pain, Arm Pain, Back Pain, Hand Pain, Leg Pain, Foot Pain, Other Neurological: negative: Weakness, Numbness, Incoordination, Change in Speech, Confusion, Seizures, Other - Medications/Allergies Allergies/Adverse Reactions: Allergies Allergy/AdvReac Type Severity Reaction Status Date / Time Sulfa (Sulfonamide Allergy Severe Anaphylaxis Verified 06/25/17 19:45 Antibiotics) Medications: Current Medications Hydrocodone Bitart/Acetaminophen (Guthrie 10/325) 1 tab PO Q4H PRN PRN Reason: Moderate Pain (4-6) Last Admin: 06/26/18 17:23 Dose: 1 tab Hydrocodone Bitart/Acetaminophen (Guthrie 10/325) 2 tab PO Q4H PRN PRN Reason: PAIN-SEV 1ST LINE Last Admin: 06/27/18 09:00 Dose: 2 tab Albuterol/Ipratropium (Duoneb) 3 ml NEB Q4H PRN PRN Reason: Wheezing Albuterol/Ipratropium (Duoneb) 3 ml NEB [id number] [facility] Last Admin: 06/27/18 13:30 Dose: 3 ml Alteplase, Recombinant (Cathflo) 2 mg CATH ASDIR [facility] Dextrose/Water (Dextrose 50%) 25 gm SLOW IVP PRN PRN PRN Reason: Hypoglycemia Docusate Sodium (Colace) 100 mg PO BID [facility] Last Admin: 06/27/18 09:00 Dose: 100 mg Enoxaparin Sodium (Lovenox) 40 mg SC 0900 [facility] Last Admin: 06/27/18 09:00 Dose: 40 mg Famotidine (Pepcid) 20 mg SLOW IVP Q12HR [facility] Last Admin: 06/27/18 09:00 Dose: 20 mg Furosemide (Lasix) 20 mg SLOW IVP DAILY [facility] Glucagon (Glucagon) 1 mg IM PRN PRN PRN Reason: Hypoglycemia Hydralazine HCl (Apresoline) 10 mg SLOW IVP Q4H PRN PRN Reason: SBP > 170 or DBP > 100 Dextrose/Water (D5w) 1,000 mls @ 0 mls/hr IV .Q0M PRN PRN Reason: Hypoglycemia Last Admin: 06/16/18 13:05 Dose: 1,000 mls Piperacillin Sod/Tazobactam (Sod 3.375 gm/ Sodium Chloride) 100 mls @ 200 mls/ hr IVPB Q6HR [facility] Last Admin: 06/27/18 11:23 Dose: 100 mls Insulin Glargine 15 units/ (Miscellaneous Medication) 0.15 mls @ 0 mls/hr SC HS [facility] Last Admin: 06/26/18 20:30 Dose: 0.15 mls Insulin Glargine 15 units/ (Miscellaneous Medication) 0.15 mls @ 0 mls/hr SC QAM [facility] Last Admin: 06/27/18 08:59 Dose: 0.15 mls Micafungin Sodium 100 mg/ (Sodium Chloride) 100 mls @ 100 mls/hr IVPB Q24H [facility] Last Admin: 06/26/18 18:09 Dose: 100 mls Sodium Chloride (Normal Saline 0.9%) 1,000 mls @ 30 mls/hr IV .Q24H [facility] Last Admin: 06/27/18 11:22 Dose: Not Given Insulin Human Lispro (Humalog) 0 units SC .AGGRESSIVE SLIDING PRN; Protocol PRN Reason: AGGRESSIVE SLIDING SCALE Last Admin: 06/27/18 11:34 Dose: 3 unit Metoprolol Tartrate (Lopressor) 25 mg PO BID [facility] Last Admin: 06/27/18 09:00 Dose: 25 mg Mometasone Furoate/Formoterol Fumar (Dulera 200 Mcg/5 Mcg Inhaler) 2 puff INH BID-RT [facility] Last Admin: 06/27/18 07:13 Dose: 2 puff Morphine Sulfate (Morphine) 2 mg SLOW IVP Q4H PRN PRN Reason: Moderate Pain (1-5) 2ND LINE Last Admin: 06/26/18 09:38 Dose: 2 mg Morphine Sulfate (Morphine) 4 mg SLOW IVP Q4H PRN PRN Reason: Severe Pain (7-10) 2ND LINE Last Admin: 06/27/18 12:00 Dose: 4 mg Ondansetron HCl (Zofran) 4 mg IVP Q6H PRN PRN Reason: Nausea Last Admin: 06/23/18 08:04 Dose: 4 mg Promethazine HCl (Phenergan) 25 mg IM Q4H PRN PRN Reason: Nausea Last Admin: 06/22/18 00:38 Dose: 25 mg Sodium Chloride (Flush - Normal Saline) 10 ml IVF PRN PRN PRN Reason: Saline Flush Last Admin: 06/15/18 21:16 Dose: 10 ml Throat Lozenges (Cepastat Lozenges) 1 patricia PO Q2H PRN PRN Reason: SORE THROAT Last Admin: 06/26/18 23:36 Dose: 1 patricia
[2018-06-27] MEDS: Micafungin 100 MG in Sodium Chloride 0.9% 100 ML IVPB SCH (17:00)
--- NOTE | 2018-06-27 23:08 | RAD ---
SINGLE VIEW CHEST: HISTORY: Shortness of breath. COMPARISON: 06/14/2018 FINDINGS: A single view of the chest shows a normal sized cardiomediastinal silhouette. There is no evidence o f consolidation, mass, or pleural effusion. A left upper extremity PICC line is seen with its tip in the superior vena cava. IMPRESSION: No evidence of acute cardiopulmonary disease. POS: H
[2018-06-28] MEDS: Piperacillin/Tazobactam 3.375 GM in Sodium Chloride 0.9% 100 ML IVPB SCH ×5 (00:20→23:28)
[2018-06-28] MEDS: HYDROcodone/Acetaminophen 10/325 mg Tablet PO PRN ×2 (00:35→21:44)
[2018-06-28] MEDS: Mometasone/Formoterol 120 PUFF INHALER INH SCH ×2 (06:45→21:49)
[2018-06-28] MEDS ORDERED: Heparin 1,000 UNITS/ML VIAL ONE (09:00)
[2018-06-28] MEDS: Metoprolol Tartrate 25 MG TAB PO SCH ×2 (09:35→21:38)
[2018-06-28] MEDS: Famotidine/PF 20 mg/2ml Vial SLOW IVP SCH ×2 (09:35→21:38)
[2018-06-28] MEDS: Enoxaparin Sodium 40 MG/0.4 ML SYRINGE SC SCH (09:35)
[2018-06-28] MEDS: Insulin Glargine 15 UNITS in Pre-Filled Syringe 1 EACH SC SCH ×2 (09:35→21:50)
[2018-06-28] MEDS: Furosemide 20 MG/2 ML VIAL SLOW IVP SCH (09:35)
[2018-06-28] MEDS: Docusate 100 MG CAP PO SCH ×2 (09:35→21:38)
--- NOTE | 2018-06-28 11:23 | PRG ---
DATE OF SERVICE: 06/28/2018 SERVICE: Pulmonary Medicine. INTERVAL HISTORY: The patient is doing fine from a respiratory standpoint. Yesterday evening, she had a difficult time with her breathing. Her blood pressure was fine, but her heart rate shot up a little bit. This was associated with a little bit of physical therapy. She denies any chest pain, nausea or vomiting. This morning, she said her breathing is much improved, but just by talking about it, she starts to get tachypneic and tells me that she is short of breath. When we distract her from her breathing, she settles down and looks much more comfortable. Otherwise, there has been no notable change to her condition. Her JORGE L drain keeps putting out some poor looking fluid. OBJECTIVE: HEENT: Normocephalic, atraumatic. Sclerae are white. Conjunctivae are pink. Oral mucosa is moist without lesions. LUNGS: Decent air entry. There is a prolonged expiratory phase present. I appreciate minimal crackles in the dependent regions. HEART: Normal rate, regular. ABDOMEN: Soft. Tender to palpation throughout. There is no guarding or rebound present. Bowel sounds are active. MUSCULOSKELETAL: No cyanosis or clubbing. There is no pitting in the bilateral lower extremities, but she has persistent 1+ to 2+ pitting in the sacral region. GENITOURINARY: Conner catheter in place. LABORATORY DATA: Lab data was reviewed after the note was generated secondary to computer downtime. ASSESSMENT: 1. Acute hypoxic respiratory failure. 2. Chronic obstructive pulmonary disease with mild exacerbation. 3. Gross peritonitis secondary to perforated colon. 4. Colectomy, postop day 14. 5. Severe sepsis, resolving slowly. DISCUSSION AND PLAN: The patient is doing fine from a respiratory standpoint. We are going to continue focusing our efforts to mobilize her through time. Frequent nebulized medications and antibiotics will be continued. Pulmonary Critical Care will follow. RASHAD
--- NOTE | 2018-06-28 11:42 | PDOC.GSPN ---
Surgery Progress Note: Subj - Subjective Narrative: Breathing better this am. Eating breakfast Surgery Progress Note: Obj - Vital signs Vital signs: Vital Signs - Most Recent Temp Pulse Resp BP Pulse Ox 98.0 F 119 H 20 118/83 94 L 06/28/18 11:31 06/28/18 11:31 06/28/18 11:31 06/28/18 11:31 06/28/18 11:31 - Physical Exam General: no distress Cardiovascular: regular rate and rhythm Respiratory: clear to auscultation Abdomen: soft, appropriately tender Wound: wound vac Surgery Progress Note: Results - Labs Result Diagrams: 06/27/18 05:05 06/27/18 05:05 Surgery Progress Note: A/P - Problem (1) Sigmoid diverticulitis Current Visit: Yes Code(s): K57.32 - DVTRCLI OF LG INT W/O PERFORATION OR ABSCESS W/O BLEEDING Status: Deleted - Plan Plan: Continue PT -encouraged more activity and increase po intake
[2018-06-28] MEDS: Sodium Chloride 0.9% 1,000 ML IV SCH (12:35)
[2018-06-28 14:07] LABS: Anion Gap 16 mmol/L (10-20); BUN (Urea Nitrogen) 12 mg/dL (9.8-20.1); Calc. Creatinine Clearance 124 mL/min (70-130); Carbon Dioxide 25 mmol/L (22-29); Chloride 101 mmol/L (98-107); Estimated GFR-MDRD 85; Glucose 117 mg/dL (70-105); Magnesium 1.2 mg/dL (1.6-2.6); Phosphorus 3.1 mg/dL (2.3-4.7); Potassium 4.1 mmol/L (3.5-5.1); Sodium 138 mmol/L (136-145)
--- NOTE | 2018-06-28 16:21 | PDOC.PN ---
- Subjective Encounter Start Date: 06/28/18 Encounter Start Time: 16:19 Subjective: poor appetite, stool in ostomy bag - Objective Resuscitation Status: Resuscitation Status FULL:Full Resuscitation MAR Reviewed: Yes Vital Signs & Weight: Vital Signs (12 hours) Temp Pulse Resp BP Pulse Ox 06/28/18 14:03 113 H 22 H 94 L 06/28/18 11:31 98.0 F 119 H 20 118/83 94 L 06/28/18 10:48 115 H 24 H 95 06/28/18 08:00 98.9 F 124 H 20 134/90 94 L 06/28/18 06:45 93 20 96 06/28/18 06:20 113 H 20 100 06/28/18 04:50 97.7 F 102 H 19 111/69 97 Weight Admit Weight 200 lb 0.054 oz Weight 197 lb 14.4 oz Most Recent Monitor Data Heart Rate from ECG 110 NIBP 145/90 NIBP BP-Mean 140 Respiration from ECG 14 SpO2 95 I&O: 06/27/18 06/28/18 06/29/18 06:59 06:59 06:59 Intake Total 3730 1885 Output Total 1473 3170 Balance 2257 -1285 Result Diagrams: 06/27/18 05:05 06/28/18 13:31 Additional Labs: Accuchecks 06/28/18 06/27/18 11:25 20:40 POC Glucose 150 H 125 H Phys Exam - Physical Examination Neck: no JVD Respiratory: clear to auscultation bilateral Cardiovascular: RRR, no significant murmur Gastrointestinal: soft, positive bowel sounds mildly distended, tympanitic Musculoskeletal: edema present Dx/Plan (1) Diverticulitis of colon with perforation Code(s): K57.20 - DVTRCLI OF LG INT W PERFORATION AND ABSCESS W/O BLEEDING Status: Acute Comment: s/p laparotomy, sigmoid colectomy and colostomy (2) Peritonitis Code(s): K65.9 - PERITONITIS, UNSPECIFIED Status: Acute Comment: on ABx (3) Sepsis Code(s): A41.9 - SEPSIS, UNSPECIFIED ORGANISM Status: Acute Qualifiers: Sepsis type: sepsis due to unspecified organism Qualified Code(s): A41.9 - Sepsis, unspecified organism (4) Anemia, normocytic normochromic Code(s): D64.9 - ANEMIA, UNSPECIFIED Status: Chronic (5) COPD (chronic obstructive pulmonary disease) Status: Chronic (6) Diabetes mellitus, type II Status: Chronic Qualifiers: Diabetes mellitus fpc insulin use: without fpc use Diabetes mellitus complication status: without complication Qualified Code(s): E11.9 - Type 2 diabetes mellitus without complications Comment: Uncontrolled (7) Hypertension Code(s): I10 - ESSENTIAL (PRIMARY) HYPERTENSION Status: Chronic Qualifiers: Hypertension type: essential hypertension Qualified Code(s): I10 - Essential (primary) hypertension (8) Tobacco abuse Code(s): Z72.0 - TOBACCO USE Status: Chronic - Plan cont zosyn, mycafungin -: cont accu/ss/ glargine -: cont [id number] -: slow improvement * .
[2018-06-28] MEDS: Micafungin 100 MG in Sodium Chloride 0.9% 100 ML IVPB SCH (18:19)
[2018-06-29] MEDS: Piperacillin/Tazobactam 3.375 GM in Sodium Chloride 0.9% 100 ML IVPB SCH ×4 (05:02→23:27)
[2018-06-29 05:20] LABS: Anion Gap 11 mmol/L (10-20); BUN (Urea Nitrogen) 12 mg/dL (9.8-20.1); Calc. Creatinine Clearance 122 mL/min (70-130); Calcium 8.3 mg/dL (7.8-10.44); Carbon Dioxide 27 mmol/L (22-29); Chloride 101 mmol/L (98-107); Estimated GFR-MDRD 83; Glucose 73 mg/dL (70-105); Magnesium 1.2 mg/dL (1.6-2.6); Phosphorus 3.5 mg/dL (2.3-4.7); Potassium 3.6 mmol/L (3.5-5.1); Sodium 135 mmol/L (136-145)
[2018-06-29] MEDS: HYDROcodone/Acetaminophen 10/325 mg Tablet PO PRN ×3 (06:41→23:33)
[2018-06-29] MEDS: Mometasone/Formoterol 120 PUFF INHALER INH SCH ×2 (07:04→18:34)
[2018-06-29] MEDS: Famotidine/PF 20 mg/2ml Vial SLOW IVP SCH ×2 (08:47→20:29)
[2018-06-29] MEDS: Metoprolol Tartrate 25 MG TAB PO SCH ×2 (08:47→20:29)
[2018-06-29] MEDS: Docusate 100 MG CAP PO SCH ×2 (08:47→20:29)
[2018-06-29] MEDS: Furosemide 20 MG/2 ML VIAL SLOW IVP SCH (08:48)
[2018-06-29] MEDS: Enoxaparin Sodium 40 MG/0.4 ML SYRINGE SC SCH (08:48)
[2018-06-29] MEDS: Sodium Chloride 0.9% 1,000 ML IV SCH (08:49)
--- NOTE | 2018-06-29 08:58 | PDOC.GSPN ---
Surgery Progress Note: Subj - Subjective Patient reports: no new complaints (Starting to take in more PO) Surgery Progress Note: Obj - Vital signs Vital signs: Vital Signs - Most Recent Temp Pulse Resp BP Pulse Ox 98.2 F 110 H 18 124/73 95 06/29/18 08:20 06/29/18 08:20 06/29/18 08:20 06/29/18 08:20 06/29/18 08:20 - Physical Exam General: no distress Cardiovascular: regular rate and rhythm Respiratory: clear to auscultation Abdomen: soft, appropriately tender Wound: wound vac, ostomy/colostomy (stool in bag) Surgery Progress Note: Results - Labs Result Diagrams: 06/27/18 05:05 06/29/18 04:51 Lab results: Laboratory Results - last 24 hr 06/28/18 06/29/18 06/29/18 21:48 04:51 05:32 Sodium 135 L Potassium 3.6 Chloride 101 Carbon Dioxide 27 Anion Gap 11 BUN 12 Creatinine 0.72 Estimated GFR (MDRD) 83 Glucose 73 POC Glucose 112 H 65 L Calcium 8.3 Phosphorus 3.5 Magnesium 1.2 L 06/29/18 06:48 Sodium Potassium Chloride Carbon Dioxide Anion Gap BUN Creatinine Estimated GFR (MDRD) Glucose POC Glucose 101 Calcium Phosphorus Magnesium Surgery Progress Note: A/P - Problem (1) Sigmoid diverticulitis Current Visit: Yes Code(s): K57.32 - DVTRCLI OF LG INT W/O PERFORATION OR ABSCESS W/O BLEEDING Status: Deleted - Plan Plan: s/p sigmoid colectomy/colostomy -continue to encourage PO intake and more activity
[2018-06-29] MEDS ORDERED: Magnesium Sulfate 4 GM in Sodium Chloride 0.9% 250 ML 250 ML IVPB SCH (09:00)
[2018-06-29] MEDS: Insulin Glargine 15 UNITS in Pre-Filled Syringe 1 EACH SC SCH (09:55)
--- NOTE | 2018-06-29 11:49 | PDOC.PN ---
- Subjective Encounter Start Date: 06/29/18 Encounter Start Time: 11:47 Subjective: feels a little better - Objective Resuscitation Status: Resuscitation Status FULL:Full Resuscitation MAR Reviewed: Yes Vital Signs & Weight: Vital Signs (12 hours) Temp Pulse Resp BP BP Pulse Ox 06/29/18 10:48 90 16 96 06/29/18 08:20 98.2 F 110 H 18 124/73 95 06/29/18 07:05 92 L 06/29/18 07:04 77 16 92 L 06/29/18 07:03 77 18 92 L 06/29/18 04:45 97.5 F L 88 20 115/80 95 06/29/18 03:34 85 18 91 L 06/29/18 00:00 98.5 F 90 20 104/69 97 Weight Admit Weight 200 lb 0.054 oz Weight 195 lb Most Recent Monitor Data Heart Rate from ECG 110 NIBP 145/90 NIBP BP-Mean 140 Respiration from ECG 14 SpO2 95 I&O: 06/28/18 06/29/18 06/30/18 06:59 06:59 06:59 Intake Total 1885 1450 Output Total 3170 1115 Balance -1285 335 Result Diagrams: 06/27/18 05:05 06/29/18 04:51 Additional Labs: Accuchecks 06/29/18 06/29/18 06/29/18 10:48 06:48 05:32 POC Glucose 157 H 101 65 L 06/28/18 06/28/18 06/28/18 21:48 16:20 11:25 POC Glucose 112 H 117 H 150 H 06/28/18 05:58 POC Glucose 122 H Phys Exam - Physical Examination Neck: no JVD Respiratory: clear to auscultation bilateral Cardiovascular: RRR, no significant murmur Gastrointestinal: soft, positive bowel sounds Musculoskeletal: edema present Dx/Plan (1) Diverticulitis of colon with perforation Code(s): K57.20 - DVTRCLI OF LG INT W PERFORATION AND ABSCESS W/O BLEEDING Status: Acute Comment: s/p laparotomy, sigmoid colectomy and colostomy (2) Peritonitis Code(s): K65.9 - PERITONITIS, UNSPECIFIED Status: Acute Comment: on ABx (3) Sepsis Code(s): A41.9 - SEPSIS, UNSPECIFIED ORGANISM Status: Acute Qualifiers: Sepsis type: sepsis due to unspecified organism Qualified Code(s): A41.9 - Sepsis, unspecified organism (4) Anemia, normocytic normochromic Code(s): D64.9 - ANEMIA, UNSPECIFIED Status: Chronic (5) COPD (chronic obstructive pulmonary disease) Status: Chronic (6) Diabetes mellitus, type II Status: Chronic Qualifiers: Diabetes mellitus custodial insulin use: without ad terminal makeup operator use Diabetes mellitus complication status: without complication Qualified Code(s): E11.9 - Type 2 diabetes mellitus without complications Comment: Uncontrolled (7) Hypertension Code(s): I10 - ESSENTIAL (PRIMARY) HYPERTENSION Status: Chronic Qualifiers: Hypertension type: essential hypertension Qualified Code(s): I10 - Essential (primary) hypertension (8) Tobacco abuse Code(s): Z72.0 - TOBACCO USE Status: Chronic - Plan cont iv antibx -: cont nutrition -: cont accu/ ss/ LA insulin * .
[2018-06-29] MEDS: HumaLOG 300 UNITS/3 ML VIAL SC PRN (12:15)
[2018-06-29 12:27] VITALS: BMI 36.8
--- NOTE | 2018-06-29 14:17 | PRG ---
DATE OF SERVICE: 06/29/2018 SERVICE: Pulmonary Medicine. INTERVAL HISTORY: The patient is doing fine from a respiratory standpoint. This actually most comfortable. I have seen her breathing since she has been here. She has been able to work with physical therapy to a little bit. She was up out of bed for 4 hours yesterday. Today, she was taken into the shower and given a shower. She denies any current chest discomfort. Her belly pain is stable. PHYSICAL EXAMINATION: VITAL SIGNS: Afebrile, pulse 110, blood pressure 93/59, respirations 15, saturation 97% on 3 liters nasal cannula. GENERAL: The patient is awake, alert, no apparent distress. LUNGS: Decent air entry. There is no prolonged expiratory phase or wheezing. HEART: Normal rate, regular. ABDOMEN: Soft, nontender, nondistended. Bowel sounds are positive. MUSCULOSKELETAL: No cyanosis or clubbing. There is trace pitting in the bilateral lower extremities and 1+ pitting at the sacrum. GENITOURINARY: Conner catheter in place. NEUROLOGIC: Grossly nonfocal. LABORATORY DATA: Basic metabolic profile is essentially unremarkable except for potassium of 3.5, and magnesium 1.2. ASSESSMENT: 1. Acute hypoxic respiratory failure. 2. Chronic obstructive pulmonary disease with mild exacerbation. 3. Gross peritonitis secondary to perforated colon. 4. Colectomy, postop day #15. 5. Severe sepsis, resolving. 6. Type 2 diabetes mellitus. DISCUSSION AND PLAN: We will back off on her nighttime insulin. Now that she is off the TPN, she will likely have lower insulin requirements. We will continue the once daily long-acting insulin, and the sliding scale insulin. I will diurese her once daily. Pulmonary Critical Care will continue to follow in this location. From a purely respiratory standpoint; however, she is stable for transition out of the hospital. RASHAD
[2018-06-29] MEDS: Micafungin 100 MG in Sodium Chloride 0.9% 100 ML IVPB SCH (18:11)
[2018-06-30] MEDS: Piperacillin/Tazobactam 3.375 GM in Sodium Chloride 0.9% 100 ML IVPB SCH ×4 (04:59→23:24)
[2018-06-30] MEDS: HYDROcodone/Acetaminophen 10/325 mg Tablet PO PRN ×2 (05:07→17:45)
[2018-06-30] MEDS: Mometasone/Formoterol 120 PUFF INHALER INH SCH ×2 (06:12→19:42)
[2018-06-30] MEDS: Docusate 100 MG CAP PO SCH ×2 (08:27→20:21)
[2018-06-30] MEDS: Metoprolol Tartrate 25 MG TAB PO SCH ×2 (08:27→20:21)
[2018-06-30] MEDS: Famotidine/PF 20 mg/2ml Vial SLOW IVP SCH ×2 (08:27→20:21)
[2018-06-30] MEDS: Enoxaparin Sodium 40 MG/0.4 ML SYRINGE SC SCH (08:28)
[2018-06-30] MEDS: Furosemide 20 MG/2 ML VIAL SLOW IVP SCH (08:28)
--- NOTE | 2018-06-30 09:12 | PDOC.GSPN ---
Surgery Progress Note: Subj - Subjective Patient reports: no new complaints Surgery Progress Note: Obj - Vital signs Vital signs: Vital Signs - Most Recent Temp Pulse Resp BP Pulse Ox 97.4 F L 94 18 113/75 96 06/30/18 07:15 06/30/18 07:15 06/30/18 07:15 06/30/18 07:15 06/30/18 07:15 - Physical Exam General: no distress Cardiovascular: regular rate and rhythm Respiratory: clear to auscultation Wound: wound vac, ostomy/colostomy (+stool, mucosa pink) Surgery Progress Note: Results - Labs Result Diagrams: 06/27/18 05:05 06/29/18 04:51 Lab results: Laboratory Results - last 24 hr 06/30/18 06:29 POC Glucose 93 Surgery Progress Note: A/P - Problem (1) Sigmoid diverticulitis Current Visit: Yes Code(s): K57.32 - DVTRCLI OF LG INT W/O PERFORATION OR ABSCESS W/O BLEEDING Status: Deleted - Plan Plan: continued slow improvement -PT
[2018-06-30] MEDS: Insulin Glargine 15 UNITS in Pre-Filled Syringe 1 EACH SC SCH (09:52)
--- NOTE | 2018-06-30 13:54 | PRG ---
DATE OF SERVICE: 06/30/2018 SERVICE: Pulmonary Medicine. INTERVAL HISTORY: The patient is doing fine from and respiratory standpoint. Denies any chest pain, nausea, vomiting, fevers, chills, shortness of breath. Otherwise, there has been no interval change to her condition. She is breathing comfortably today. She has had no significant deterioration fun ction over the last several days. She is working with physical therapy to increase mobility as karina ated, though her progress is quite slow. Her blood sugars are under very good control at this point. PHYSICAL EXAMINATION: VITAL SIGNS: Afebrile, pulse 86, blood pressure 108/65, respirations 16, saturation 94% on 3 liters nasal cannula. GENERAL: The patient is awake, alert, no apparent distress. LUNGS: Decent air entry. There is a prolonged expiratory phase. There are no crackles today. I do not appreciate rhonchi or wheezing. HEART: Normal rate, regular. ABDOMEN: Soft, nontender, nondistended. Bowel sounds are positive. MUSCULOSKELETAL: No cyanosis or clubbing. No pitting in the bilateral lower extremities. NEUROLOGIC: Grossly nonfocal. LABORATORY DATA: Glucose is ranging from 93-157. ASSESSMENT: 1. Acute on chronic hypoxic respiratory failure. 2. Chronic obstructive pulmonary disease with mild exacerbation, resolved. 3. Gross peritonitis secondary to perforated colon from diverticulitis. 4. Colectomy, postop day #16. 5. Severe sepsis, resolved. 6. Type 2 diabetes mellitus. DISCUSSION AND PLAN: We will continue our mobilization efforts through time. Pulmonary Critical Car yoli will continue to follow intermittently during this hospital stay, but from my perspective, she is s table for transition out of the hospital if a place can be arranged.
--- NOTE | 2018-06-30 15:46 | PDOC.PN ---
- Subjective Encounter Start Date: 06/30/18 Encounter Start Time: 15:45 Subjective: slow progress with intake, activity - Objective Resuscitation Status: Resuscitation Status FULL:Full Resuscitation MAR Reviewed: Yes Vital Signs & Weight: Vital Signs (12 hours) Temp Pulse Resp BP Pulse Ox 06/30/18 11:42 100 20 94 L 06/30/18 11:05 98.5 F 86 16 108/65 94 L 06/30/18 07:55 96 06/30/18 07:15 97.4 F L 94 18 113/75 96 06/30/18 06:12 97 18 95 06/30/18 06:11 97 18 95 Weight Admit Weight 200 lb 0.054 oz Weight 195 lb Most Recent Monitor Data Heart Rate from ECG 110 NIBP 145/90 NIBP BP-Mean 140 Respiration from ECG 14 SpO2 95 I&O: 06/29/18 06/30/18 07/01/18 06:59 06:59 06:59 Intake Total 1450 2220 Output Total 1115 1923 Balance 335 297 Result Diagrams: 06/27/18 05:05 06/29/18 04:51 Additional Labs: Accuchecks 06/30/18 06/30/18 06/30/18 15:24 11:05 06:29 POC Glucose 92 112 H 93 06/29/18 20:44 POC Glucose 117 H Phys Exam - Physical Examination Neck: no JVD Respiratory: clear to auscultation bilateral Cardiovascular: RRR, no significant murmur Gastrointestinal: soft, positive bowel sounds ostomy Musculoskeletal: edema present Dx/Plan (1) Diverticulitis of colon with perforation Code(s): K57.20 - DVTRCLI OF LG INT W PERFORATION AND ABSCESS W/O BLEEDING Status: Acute Comment: s/p laparotomy, sigmoid colectomy and colostomy (2) Peritonitis Code(s): K65.9 - PERITONITIS, UNSPECIFIED Status: Acute Comment: on ABx (3) Sepsis Code(s): A41.9 - SEPSIS, UNSPECIFIED ORGANISM Status: Acute Qualifiers: Sepsis type: sepsis due to unspecified organism Qualified Code(s): A41.9 - Sepsis, unspecified organism (4) Anemia, normocytic normochromic Code(s): D64.9 - ANEMIA, UNSPECIFIED Status: Chronic (5) COPD (chronic obstructive pulmonary disease) Status: Chronic (6) Diabetes mellitus, type II Status: Chronic Qualifiers: Diabetes mellitus skilled nursing insulin use: without middle or intermediate school principal use Diabetes mellitus complication status: without complication Qualified Code(s): E11.9 - Type 2 diabetes mellitus without complications Comment: Uncontrolled (7) Hypertension Code(s): I10 - ESSENTIAL (PRIMARY) HYPERTENSION Status: Chronic Qualifiers: Hypertension type: essential hypertension Qualified Code(s): I10 - Essential (primary) hypertension (8) Tobacco abuse Code(s): Z72.0 - TOBACCO USE Status: Chronic - Plan cont antibx -: cont accu/ss/ glargine * .
[2018-06-30] MEDS: Micafungin 100 MG in Sodium Chloride 0.9% 100 ML IVPB SCH (18:34)
[2018-07-01] MEDS: HYDROcodone/Acetaminophen 10/325 mg Tablet PO PRN ×3 (05:05→21:26)
[2018-07-01] MEDS: Piperacillin/Tazobactam 3.375 GM in Sodium Chloride 0.9% 100 ML IVPB SCH ×3 (05:05→17:17)
[2018-07-01] MEDS: Mometasone/Formoterol 120 PUFF INHALER INH SCH ×2 (06:10→19:06)
--- NOTE | 2018-07-01 08:40 | PDOC.PN ---
- Subjective Encounter Start Date: 07/01/18 Encounter Start Time: 08:38 Subjective: no fever, nausea, etc - Objective Resuscitation Status: Resuscitation Status FULL:Full Resuscitation MAR Reviewed: Yes Vital Signs & Weight: Vital Signs (12 hours) Temp Pulse Resp BP BP Pulse Ox 07/01/18 07:35 98.8 F 97 14 120/77 95 07/01/18 06:10 97 18 95 07/01/18 06:08 97 18 95 07/01/18 03:54 99.6 F 97 20 123/75 95 07/01/18 00:18 98.7 F 81 16 96/61 98 06/30/18 23:50 82 16 98 Weight Admit Weight 200 lb 0.054 oz Weight 195 lb Most Recent Monitor Data Heart Rate from ECG 110 NIBP 145/90 NIBP BP-Mean 140 Respiration from ECG 14 SpO2 95 I&O: 06/30/18 07/01/18 07/02/18 06:59 06:59 06:59 Intake Total 2220 1800 Output Total 1923 2180 Balance 297 -380 Result Diagrams: 06/27/18 05:05 06/29/18 04:51 Additional Labs: Accuchecks 07/01/18 06/30/18 06/30/18 05:58 20:43 15:24 POC Glucose 80 83 92 06/30/18 11:05 POC Glucose 112 H Phys Exam - Physical Examination Neck: no JVD Respiratory: clear to auscultation bilateral Cardiovascular: RRR, no significant murmur Gastrointestinal: soft, positive bowel sounds ostomy Musculoskeletal: edema present Dx/Plan (1) Diverticulitis of colon with perforation Code(s): K57.20 - DVTRCLI OF LG INT W PERFORATION AND ABSCESS W/O BLEEDING Status: Acute Comment: s/p laparotomy, sigmoid colectomy and colostomy (2) Peritonitis Code(s): K65.9 - PERITONITIS, UNSPECIFIED Status: Acute Comment: on ABx (3) Sepsis Code(s): A41.9 - SEPSIS, UNSPECIFIED ORGANISM Status: Acute Qualifiers: Sepsis type: sepsis due to unspecified organism Qualified Code(s): A41.9 - Sepsis, unspecified organism (4) Anemia, normocytic normochromic Code(s): D64.9 - ANEMIA, UNSPECIFIED Status: Chronic (5) COPD (chronic obstructive pulmonary disease) Status: Chronic (6) Diabetes mellitus, type II Status: Chronic Qualifiers: Diabetes mellitus long term care administrator insulin use: without long term care administrator use Diabetes mellitus complication status: without complication Qualified Code(s): E11.9 - Type 2 diabetes mellitus without complications Comment: Uncontrolled (7) Hypertension Code(s): I10 - ESSENTIAL (PRIMARY) HYPERTENSION Status: Chronic Qualifiers: Hypertension type: essential hypertension Qualified Code(s): I10 - Essential (primary) hypertension (8) Tobacco abuse Code(s): Z72.0 - TOBACCO USE Status: Chronic - Plan on iv antibx -: accu/ss/LA insulin -: encouraging intake, increased a ctivity * .
[2018-07-01] MEDS: Enoxaparin Sodium 40 MG/0.4 ML SYRINGE SC SCH (08:47)
[2018-07-01] MEDS: Insulin Glargine 15 UNITS in Pre-Filled Syringe 1 EACH SC SCH (08:47)
[2018-07-01] MEDS: Furosemide 20 MG/2 ML VIAL SLOW IVP SCH (08:48)
[2018-07-01] MEDS: Famotidine/PF 20 mg/2ml Vial SLOW IVP SCH (08:48)
[2018-07-01] MEDS: Docusate 100 MG CAP PO SCH ×2 (08:48→21:24)
[2018-07-01] MEDS: Metoprolol Tartrate 25 MG TAB PO SCH ×2 (08:48→21:24)
--- NOTE | 2018-07-01 11:27 | PRG ---
DATE OF SERVICE: 07/01/2018 SERVICE: Pulmonary Medicine. INTERVAL HISTORY: The patient is doing fine from a respiratory standpoint. She is breathing comfort ably. There has been no interval change to her condition. She remains extremely weak and had not go tten out of bed in over a day now. PHYSICAL EXAMINATION: VITAL SIGNS: Afebrile, pulse 97, blood pressure 120/77, respirations 14, saturation 95% on 3 liters nasal cannula. GENERAL: The patient is awake and alert, in no apparent distress. LUNGS: Decent air entry. There is a slightly prolonged expiratory phase, but no wheezing or crackle s are appreciated. HEART: Normal rate, regular. ABDOMEN: Soft, nontender, nondistended. Bowel sounds are positive. MUSCULOSKELETAL: No cyanosis or clubbing. There is no pitting in the bilateral lower extremities. NEUROLOGIC: Grossly nonfocal. LABORATORY DATA: Glucose ranges from 80-117. ASSESSMENT: 1. Acute on chronic hypoxic respiratory failure. 2. Chronic obstructive pulmonary disease with mild exacerbation, resolved. 3. Gross peritonitis secondary to perforated colon from diverticulitis. 4. Colectomy, postop day 17. 5. Severe sepsis, resolved. 6. Type 2 diabetes mellitus. DISCUSSION AND PLAN: I will continue focusing on mobilizing the patient through the weekend. Pancho naranjo will continue to follow intermittently for the duration of the hospital stay. If she develops an y respiratory difficulties, please notify me sooner.
--- NOTE | 2018-07-01 12:39 | PDOC.GSPN ---
Surgery Progress Note: Subj - Subjective Patient reports: no new complaints Surgery Progress Note: Obj - Vital signs Vital signs: Vital Signs - Most Recent Temp Pulse Resp BP Pulse Ox 98.8 F 95 20 120/77 96 07/01/18 07:35 07/01/18 11:30 07/01/18 11:30 07/01/18 07:35 07/01/18 11:30 - Physical Exam General: no distress Abdomen: soft, non tender, nondistended Wound: wound vac Surgery Progress Note: Results - Labs Result Diagrams: 06/27/18 05:05 06/29/18 04:51 Lab results: Laboratory Results - last 24 hr 07/01/18 07/01/18 05:58 11:14 POC Glucose 80 104 Surgery Progress Note: A/P - Problem (1) Sigmoid diverticulitis Current Visit: Yes Code(s): K57.32 - DVTRCLI OF LG INT W/O PERFORATION OR ABSCESS W/O BLEEDING Status: Deleted - Plan Plan: Plan is to assisted early next week JORGE L to stay in for now. Still draining
[2018-07-01] MEDS: Micafungin 100 MG in Sodium Chloride 0.9% 100 ML IVPB SCH (17:52)
[2018-07-01] MEDS: Famotidine 20 MG TAB PO SCH (21:24)
[2018-07-01] MEDS ORDERED: Dextrose 50% Abboject 50 ML SYRINGE SLOW IVP SCH (21:30)
[2018-07-02] MEDS: Piperacillin/Tazobactam 3.375 GM in Sodium Chloride 0.9% 100 ML IVPB SCH ×5 (00:33→23:06)
[2018-07-02] MEDS ORDERED: Dextrose 50% Abboject 50 ML SYRINGE SLOW IVP SCH (06:00)
[2018-07-02] MEDS: Mometasone/Formoterol 120 PUFF INHALER INH SCH ×2 (07:05→19:07)
[2018-07-02] MEDS: Furosemide 20 MG/2 ML VIAL SLOW IVP SCH (08:16)
[2018-07-02] MEDS: HYDROcodone/Acetaminophen 10/325 mg Tablet PO PRN ×3 (08:17→20:47)
[2018-07-02] MEDS: Famotidine 20 MG TAB PO SCH ×2 (08:17→19:53)
[2018-07-02] MEDS: Metoprolol Tartrate 25 MG TAB PO SCH ×2 (08:17→19:53)
[2018-07-02] MEDS: Enoxaparin Sodium 40 MG/0.4 ML SYRINGE SC SCH (08:17)
[2018-07-02] MEDS: Docusate 100 MG CAP PO SCH ×2 (08:17→19:53)
--- NOTE | 2018-07-02 10:34 | PRG ---
DATE OF SERVICE: 07/02/2018 SUBJECTIVE: Ms. Werner is sleepy this morning. Denies complaints though she is afebrile. PHYSICAL EXAMINATION: VITAL SIGNS: Stable. ABDOMEN: Soft, midline wound has her VAC. She has stool in her bag in the left abdomen. ASSESSMENT: Status post Nya's for ruptured sigmoid diverticulitis. PLAN: She certainly is limited by her chronic deconditioning and COPD. Plan is for her to go to [facility] early next week.
--- NOTE | 2018-07-02 11:56 | PDOC.PN ---
- Subjective Encounter Start Date: 07/02/18 Encounter Start Time: 11:54 Subjective: feels weak . not eating much or moving out of bed - Objective Resuscitation Status: Resuscitation Status FULL:Full Resuscitation MAR Reviewed: Yes Vital Signs & Weight: Vital Signs (12 hours) Temp Pulse Resp BP BP Pulse Ox 07/02/18 08:17 95 07/02/18 07:51 98.5 F 86 22 H 116/75 95 07/02/18 07:05 99 20 96 07/02/18 06:50 96 07/02/18 06:46 99 20 93 L 07/02/18 04:00 99 F 85 16 118/84 95 07/02/18 00:00 104/73 Weight Admit Weight 200 lb 0.054 oz Weight 195 lb Most Recent Monitor Data Heart Rate from ECG 110 NIBP 145/90 NIBP BP-Mean 140 Respiration from ECG 14 SpO2 95 I&O: 07/01/18 07/02/18 07/03/18 06:59 06:59 06:59 Intake Total 1800 1510 Output Total 2180 2335 Balance -380 -825 Result Diagrams: 06/27/18 05:05 06/29/18 04:51 Additional Labs: Accuchecks 07/02/18 07/02/18 07/02/18 10:55 06:44 05:48 POC Glucose 157 H 159 H 62 L 07/02/18 07/01/18 07/01/18 00:32 20:46 15:35 POC Glucose 104 62 L 59 L* Microbiology 06/13/18 12:10 Colon Bacterial Culture - Final 06/13/18 12:10 Colon Anaerobic Culture - Final Anaerobic cocci Anaerobic cocci#2 Anaerobic Gram Negative Usman Anaerobic Gram Negative Usman#2 Anaerobic Gram Negative Usman#3 06/12/18 21:35 Venous blood - Left Arm Blood Culture - Final NO GROWTH IN 5 DAYS 06/12/18 21:35 Venous blood - Left Arm Blood Culture - Final NO GROWTH IN 5 DAYS Phys Exam - Physical Examination Constitutional: NAD HEENT: PERRLA, moist MMs, sclera anicteric, oral pharynx no lesions Neck: no nodes, no JVD, supple, full ROM Respiratory: no wheezing, no rales, no rhonchi, clear to auscultation bilateral Cardiovascular: RRR, no significant murmur, no rub Gastrointestinal: soft, non-tender, no distention, positive bowel sounds ostomy without stools, wound Vac,JORGE L drain Musculoskeletal: no edema, pulses present Neurological: non-focal, normal sensation, moves all 4 limbs Psychiatric: normal affect, A&O x 3 Skin: no rash, normal turgor, cap refill <2 seconds Dx/Plan (1) Hypoglycemia Code(s): E16.2 - HYPOGLYCEMIA, UNSPECIFIED Status: Acute (2) Peritonitis Code(s): K65.9 - PERITONITIS, UNSPECIFIED Status: Acute Comment: on ABx (3) Sepsis Code(s): A41.9 - SEPSIS, UNSPECIFIED ORGANISM Status: Acute Qualifiers: Sepsis type: sepsis due to unspecified organism Qualified Code(s): A41.9 - Sepsis, unspecified organism (4) Diverticulitis of colon with perforation Code(s): K57.20 - DVTRCLI OF LG INT W PERFORATION AND ABSCESS W/O BLEEDING Status: Acute Comment: s/p laparotomy, sigmoid colectomy and colostomy (5) Anemia, normocytic normochromic Code(s): D64.9 - ANEMIA, UNSPECIFIED Status: Chronic (6) COPD (chronic obstructive pulmonary disease) Status: Chronic (7) Diabetes mellitus, type II Status: Chronic Qualifiers: Diabetes mellitus long term care pharmacist insulin use: without long term care pharmacist use Diabetes mellitus complication status: without complication Qualified Code(s): E11.9 - Type 2 diabetes mellitus without complications Comment: Uncontrolled (8) Hypertension Code(s): I10 - ESSENTIAL (PRIMARY) HYPERTENSION Status: Chronic Qualifiers: Hypertension type: essential hypertension Qualified Code(s): I10 - Essential (primary) hypertension (9) Obesity (BMI 30-39.9) Code(s): E66.9 - OBESITY, UNSPECIFIED Status: Chronic (10) Tobacco abuse Code(s): Z72.0 - TOBACCO USE Status: Chronic - Plan continue antibiotics, respiratory therapy, incentive spirometry, DVT proph w/ SCDs encouraged to eat more. re enforce Glucerna -: Off of long acting insulin. ISS -: Abx as below -: am labs -: SNIF when accepted. Im team will follow * . Review of Systems - Review of Systems Constitutional: weakness. negative: fever, chills, sweats, malaise, other Eyes: negative: Pain, Vision Change, Conjunctivae Inflammation, Eyelid Inflammation, Redness, Other Respiratory: negative: Cough, Dry, Shortness of Breath, Hemoptysis, SOB with Excertion, Pleuritic Pain, Sputum, Wheezing Cardiovascular: negative: chest pain, palpitations, orthopnea, paroxysmal nocturnal dyspnea, edema, light headedness, other Gastrointestinal: Nausea. negative: Vomiting, Abdominal Pain, Diarrhea, Constipation, Melena, Hematochezia, Other Genitourinary: negative: Dysuria, Frequency, Incontinence, Hematuria, Retention , Other Musculoskeletal: negative: Neck Pain, Shoulder Pain, Arm Pain, Back Pain, Hand Pain, Leg Pain, Foot Pain, Other Skin: negative: Rash, Lesions, Isaiah, Bruising, Other Neurological: negative: Weakness, Numbness, Incoordination, Change in Speech, Confusion, Seizures, Other - Medications/Allergies Allergies/Adverse Reactions: Allergies Allergy/AdvReac Type Severity Reaction Status Date / Time Sulfa (Sulfonamide Allergy Severe Anaphylaxis Verified 06/25/17 19:45 Antibiotics) Medications: Current Medications Hydrocodone Bitart/Acetaminophen ([place] 10/325) 1 tab PO Q4H PRN PRN Reason: Moderate Pain (4-6) Last Admin: 07/02/18 08:17 Dose: 1 tab Hydrocodone Bitart/Acetaminophen ([place] 10/325) 2 tab PO Q4H PRN PRN Reason: PAIN-SEV 1ST LINE Last Admin: 07/01/18 21:26 Dose: 2 tab Albuterol/Ipratropium (Duoneb) 3 ml NEB Q4H PRN PRN Reason: Wheezing Albuterol/Ipratropium (Duoneb) 3 ml NEB [id number] [facility] Last Admin: 07/02/18 06:46 Dose: 3 ml Alteplase, Recombinant (Cathflo) 2 mg CATH ASDIR [facility] Dextrose/Water (Dextrose 50%) 25 gm SLOW IVP PRN PRN PRN Reason: Hypoglycemia Docusate Sodium (Colace) 100 mg PO BID [facility] Last Admin: 07/02/18 08:17 Dose: 100 mg Enoxaparin Sodium (Lovenox) 40 mg SC 0900 [facility] Last Admin: 07/02/18 08:17 Dose: 40 mg Famotidine (Pepcid) 20 mg PO BID [facility] Last Admin: 07/02/18 08:17 Dose: 20 mg Glucagon (Glucagon) 1 mg IM PRN PRN PRN Reason: Hypoglycemia Hydralazine HCl (Apresoline) 10 mg SLOW IVP Q4H PRN PRN Reason: SBP > 170 or DBP > 100 Dextrose/Water (D5w) 1,000 mls @ 0 mls/hr IV .Q0M PRN PRN Reason: Hypoglycemia Last Admin: 06/16/18 13:05 Dose: 1,000 mls Piperacillin Sod/Tazobactam (Sod 3.375 gm/ Sodium Chloride) 100 mls @ 200 mls/ hr IVPB Q6HR [facility] Last Admin: 07/02/18 05:48 Dose: 100 mls Micafungin Sodium 100 mg/ (Sodium Chloride) 100 mls @ 100 mls/hr IVPB Q24H [facility] Last Admin: 07/01/18 17:52 Dose: 100 mls Insulin Human Lispro (Humalog) 0 units SC .AGGRESSIVE SLIDING PRN; Protocol PRN Reason: AGGRESSIVE SLIDING SCALE Last Admin: 06/29/18 12:15 Dose: 3 unit Metoprolol Tartrate (Lopressor) 25 mg PO BID [facility] Last Admin: 07/02/18 08:17 Dose: 25 mg Mometasone Furoate/Formoterol Fumar (Dulera 200 Mcg/5 Mcg Inhaler) 2 puff INH BID-RT [facility] Last Admin: 07/02/18 07:05 Dose: 2 puff Morphine Sulfate (Morphine) 2 mg SLOW IVP Q4H PRN PRN Reason: Moderate Pain (1-5) 2ND LINE Last Admin: 06/29/18 09:48 Dose: 2 mg Morphine Sulfate (Morphine) 4 mg SLOW IVP Q4H PRN PRN Reason: Severe Pain (7-10) 2ND LINE Last Admin: 06/28/18 05:51 Dose: 4 mg Ondansetron HCl (Zofran) 4 mg IVP Q6H PRN PRN Reason: Nausea Last Admin: 06/23/18 08:04 Dose: 4 mg Promethazine HCl (Phenergan) 25 mg IM Q4H PRN PRN Reason: Nausea Last Admin: 06/22/18 00:38 Dose: 25 mg Sodium Chloride (Flush - Normal Saline) 10 ml IVF PRN PRN PRN Reason: Saline Flush Last Admin: 07/02/18 00:33 Dose: 10 ml Throat Lozenges (Cepastat Lozenges) 1 patricia PO Q2H PRN PRN Reason: SORE THROAT Last Admin: 06/26/18 23:36 Dose: 1 patricia
[2018-07-02] MEDS: Micafungin 100 MG in Sodium Chloride 0.9% 100 ML IVPB SCH (17:47)
[2018-07-03] MEDS: HYDROcodone/Acetaminophen 10/325 mg Tablet PO PRN ×4 (02:27→20:21)
[2018-07-03] MEDS: Piperacillin/Tazobactam 3.375 GM in Sodium Chloride 0.9% 100 ML IVPB SCH ×3 (06:29→18:42)
[2018-07-03 07:13] LABS: #Lymphocytes 1.5 thou/uL (1.20-3.40); #Monocytes 0.8 thou/uL (0.11-0.59); #Neutrophils 5.5 thou/uL (1.40-6.50); %Basophils 0.6 % (0.0-1.0); %Eosinophils 0.4 % (0.0-10.0); %Lymphocytes 19.1 % (21.0-51.0); %Monocytes 10.4 % (0.0-10.0); %Neutrophils 69.6 % (42.0-75.0); Hemoglobin 9.6 g/dL (12.0-16.0); Mean Corpuscular HGB CONC 31.6 g/dL (32.0-36.0); Mean Corpuscular Hemoglobin 30.4 pg (27.0-31.0); Mean Corpuscular Volume 96.4 fL (78.0-98.0); Mean Platelet Volume 6.9 fL (7.4-10.4); Platelet Count 488 thou/uL (130-400); RBC Distribution Width 14.3 % (11.5-14.5); Red Blood Cell (RBC) Count 3.15 mill/uL (4.20-5.40); White Blood Cell (WBC) Count 7.9 thou/uL (4.8-10.8)
[2018-07-03] MEDS: Mometasone/Formoterol 120 PUFF INHALER INH SCH ×2 (07:25→19:32)
[2018-07-03 07:31] LABS: Anion Gap 13 mmol/L (10-20); BUN (Urea Nitrogen) 4 mg/dL (9.8-20.1); Calc. Creatinine Clearance 142 mL/min (70-130); Calcium 8.1 mg/dL (7.8-10.44); Carbon Dioxide 23 mmol/L (22-29); Chloride 100 mmol/L (98-107); Estimated GFR-MDRD Greater than 90; Glucose 105 mg/dL (70-105); Potassium 3.2 mmol/L (3.5-5.1); Sodium 133 mmol/L (136-145)
[2018-07-03] MEDS: Enoxaparin Sodium 40 MG/0.4 ML SYRINGE SC SCH (09:09)
[2018-07-03] MEDS: Metoprolol Tartrate 25 MG TAB PO SCH ×2 (09:10→20:05)
[2018-07-03] MEDS: Famotidine 20 MG TAB PO SCH ×2 (09:10→20:05)
[2018-07-03] MEDS: Docusate 100 MG CAP PO SCH ×2 (09:11→20:05)
--- NOTE | 2018-07-03 09:35 | PDOC.GSPN ---
Surgery Progress Note: Subj - Subjective Patient reports: no new complaints Surgery Progress Note: Obj - Vital signs Vital signs: Vital Signs - Most Recent Temp Pulse Resp BP Pulse Ox 98.2 F 112 H 22 H 132/71 96 07/03/18 07:25 07/03/18 07:25 07/03/18 07:25 07/03/18 07:25 07/03/18 07:25 - Physical Exam General: no distress Cardiovascular: regular rate and rhythm Respiratory: clear to auscultation Abdomen: soft, non tender, nondistended Wound: wound vac Surgery Progress Note: Results - Labs Result Diagrams: 07/03/18 06:48 07/03/18 06:48 Lab results: Laboratory Results - last 24 hr 07/03/18 07/03/18 07/03/18 05:27 06:48 06:48 WBC 7.9 RBC 3.15 L Hgb 9.6 L Hct 30.3 L MCV 96.4 MCH 30.4 MCHC 31.6 L RDW 14.3 Plt Count 488 H MPV 6.9 L Neutrophils % 69.6 Lymphocytes % 19.1 L Monocytes % 10.4 H Eosinophils % 0.4 Basophils % 0.6 Neutrophils # 5.5 Lymphocytes # 1.5 Monocytes # 0.8 H Eosinophils # 0.0 Basophils # 0.0 Sodium 133 L Potassium 3.2 L Chloride 100 Carbon Dioxide 23 Anion Gap 13 BUN 4 L Creatinine 0.61 Estimated GFR (MDRD) Greater than 90 Glucose 105 POC Glucose 108 Calcium 8.1 Surgery Progress Note: A/P - Problem (1) Sigmoid diverticulitis Current Visit: Yes Code(s): K57.32 - DVTRCLI OF LG INT W/O PERFORATION OR ABSCESS W/O BLEEDING Status: Deleted - Plan Plan: To skilled next week
[2018-07-03] MEDS: Potassium Chloride 20 MEQ in Premix Bag 1 BAG IVPB SCH ×2 (11:01→13:07)
--- NOTE | 2018-07-03 12:35 | PDOC.PN ---
- Subjective Encounter Start Date: 07/03/18 Encounter Start Time: 12:33 Subjective: feels littl ebetter today .eating more -: minimal Abd pain. c/o headache - Objective Resuscitation Status: Resuscitation Status FULL:Full Resuscitation MAR Reviewed: Yes Vital Signs & Weight: Vital Signs (12 hours) Temp Pulse Resp BP Pulse Ox 07/03/18 11:50 98.9 F 93 22 H 107/70 99 07/03/18 11:01 98.7 F 94 18 117/73 96 07/03/18 08:00 96 07/03/18 07:25 98.2 F 112 H 22 H 132/71 96 07/03/18 07:03 95 07/03/18 07:01 104 H 20 95 07/03/18 04:00 98.6 F 100 18 98/70 94 L 07/03/18 02:25 118/70 07/03/18 00:51 90 20 92 L Weight Admit Weight 200 lb 0.054 oz Weight 195 lb Most Recent Monitor Data Heart Rate from ECG 110 NIBP 145/90 NIBP BP-Mean 140 Respiration from ECG 14 SpO2 95 I&O: 07/02/18 07/03/18 07/04/18 06:59 06:59 06:59 Intake Total 1510 1650 Output Total 2335 1910 Balance -825 -260 Result Diagrams: 07/03/18 06:48 07/03/18 06:48 Additional Labs: Accuchecks 07/03/18 07/03/18 07/02/18 11:06 05:27 19:41 POC Glucose 137 H 108 138 H 07/02/18 15:30 POC Glucose 181 H Microbiology 06/13/18 12:10 Colon Bacterial Culture - Final 06/13/18 12:10 Colon Anaerobic Culture - Final Anaerobic cocci Anaerobic cocci#2 Anaerobic Gram Negative Usman Anaerobic Gram Negative Usman#2 Anaerobic Gram Negative Usman#3 06/12/18 21:35 Venous blood - Left Arm Blood Culture - Final NO GROWTH IN 5 DAYS 06/12/18 21:35 Venous blood - Left Arm Blood Culture - Final NO GROWTH IN 5 DAYS Phys Exam - Physical Examination Constitutional: NAD HEENT: PERRLA, moist MMs, sclera anicteric, oral pharynx no lesions Neck: no nodes, no JVD, supple, full ROM Respiratory: no wheezing, no rales, no rhonchi, clear to auscultation bilateral Cardiovascular: RRR, no significant murmur, no rub Gastrointestinal: soft, no distention, positive bowel sounds +Ostomy,JORGE L drain and wound Vac Musculoskeletal: no edema, pulses present Neurological: non-focal, normal sensation, moves all 4 limbs Psychiatric: normal affect, A&O x 3 Skin: no rash Dx/Plan (1) Hypoglycemia Code(s): E16.2 - HYPOGLYCEMIA, UNSPECIFIED Status: Acute Comment: improved. lantus on hold (2) Peritonitis Code(s): K65.9 - PERITONITIS, UNSPECIFIED Status: Acute Comment: on ABx (3) Sepsis Code(s): A41.9 - SEPSIS, UNSPECIFIED ORGANISM Status: Acute Qualifiers: Sepsis type: sepsis due to unspecified organism Qualified Code(s): A41.9 - Sepsis, unspecified organism (4) Diverticulitis of colon with perforation Code(s): K57.20 - DVTRCLI OF LG INT W PERFORATION AND ABSCESS W/O BLEEDING Status: Acute Comment: s/p laparotomy, sigmoid colectomy and colostomy (5) Anemia, normocytic normochromic Code(s): D64.9 - ANEMIA, UNSPECIFIED Status: Chronic (6) COPD (chronic obstructive pulmonary disease) Status: Chronic (7) Diabetes mellitus, type II Status: Chronic Qualifiers: Diabetes mellitus senior care insulin use: without intermediate project manager use Diabetes mellitus complication status: without complication Qualified Code(s): E11.9 - Type 2 diabetes mellitus without complications Comment: Uncontrolled (8) Hypertension Code(s): I10 - ESSENTIAL (PRIMARY) HYPERTENSION Status: Chronic Qualifiers: Hypertension type: essential hypertension Qualified Code(s): I10 - Essential (primary) hypertension (9) Obesity (BMI 30-39.9) Code(s): E66.9 - OBESITY, UNSPECIFIED Status: Chronic (10) Tobacco abuse Code(s): Z72.0 - TOBACCO USE Status: Chronic - Plan continue antibiotics, PT/OT, incentive spirometry, out of bed/ambulate, DVT proph w/SCDs encourage PO intake and ambulation -: monitor lytes. -: To SNIF when approved -: IM team will follow. -: blodd sugar better .monitor.cont Metoprolol for BP * . Review of Systems - Review of Systems Constitutional: weakness, malaise. negative: fever, chills, sweats, other ENT: negative: Ear Pain, Ear Discharge, Nose Pain, Nose Discharge, Nose Congestion, Mouth Pain, Mouth Swelling, Throat Pain, Throat Swelling, Other Respiratory: negative: Cough, Dry, Shortness of Breath, Hemoptysis, SOB with Excertion, Pleuritic Pain, Sputum, Wheezing Cardiovascular: negative: chest pain, palpitations, orthopnea, paroxysmal nocturnal dyspnea, edema, light headedness, other Gastrointestinal: Abdominal Pain. negative: Nausea, Vomiting, Diarrhea, Constipation, Melena, Hematochezia, Other Genitourinary: negative: Dysuria, Frequency, Incontinence, Hematuria, Retention , Other Skin: negative: Rash, Lesions, Isaiah, Bruising, Other Neurological: negative: Weakness, Numbness, Incoordination, Change in Speech, Confusion, Seizures, Other - Medications/Allergies Allergies/Adverse Reactions: Allergies Allergy/AdvReac Type Severity Reaction Status Date / Time Sulfa (Sulfonamide Allergy Severe Anaphylaxis Verified 06/25/17 19:45 Antibiotics) Medications: Current Medications Hydrocodone Bitart/Acetaminophen ([place] 10/325) 1 tab PO Q4H PRN PRN Reason: Moderate Pain (4-6) Last Admin: 07/03/18 02:27 Dose: 1 tab Hydrocodone Bitart/Acetaminophen ([place] 10/325) 2 tab PO Q4H PRN PRN Reason: PAIN-SEV 1ST LINE Last Admin: 07/03/18 09:12 Dose: 2 tab Albuterol/Ipratropium (Duoneb) 3 ml NEB Q4H PRN PRN Reason: Wheezing Albuterol/Ipratropium (Duoneb) 3 ml NEB [id number] [facility] Last Admin: 07/03/18 07:01 Dose: 3 ml Alteplase, Recombinant (Cathflo) 2 mg CATH ASDIR [facility] Dextrose/Water (Dextrose 50%) 25 gm SLOW IVP PRN PRN PRN Reason: Hypoglycemia Docusate Sodium (Colace) 100 mg PO BID [facility] Last Admin: 07/03/18 09:11 Dose: 100 mg Enoxaparin Sodium (Lovenox) 40 mg SC 0900 [facility] Last Admin: 07/03/18 09:09 Dose: 40 mg Famotidine (Pepcid) 20 mg PO BID [facility] Last Admin: 07/03/18 09:10 Dose: 20 mg Glucagon (Glucagon) 1 mg IM PRN PRN PRN Reason: Hypoglycemia Hydralazine HCl (Apresoline) 10 mg SLOW IVP Q4H PRN PRN Reason: SBP > 170 or DBP > 100 Dextrose/Water (D5w) 1,000 mls @ 0 mls/hr IV .Q0M PRN PRN Reason: Hypoglycemia Last Admin: 06/16/18 13:05 Dose: 1,000 mls Piperacillin Sod/Tazobactam (Sod 3.375 gm/ Sodium Chloride) 100 mls @ 200 mls/ hr IVPB Q6HR [facility] Last Admin: 07/03/18 06:29 Dose: 100 mls Micafungin Sodium 100 mg/ (Sodium Chloride) 100 mls @ 100 mls/hr IVPB Q24H [facility] Last Admin: 07/02/18 17:47 Dose: 100 mls Potassium Chloride 20 meq/ (Device) 100 mls @ 50 mls/hr IVPB Q2H [facility] Stop: 07/03/18 13:59 Last Admin: 07/03/18 11:01 Dose: 100 mls Insulin Human Lispro (Humalog) 0 units SC .AGGRESSIVE SLIDING PRN; Protocol PRN Reason: AGGRESSIVE SLIDING SCALE Last Admin: 06/29/18 12:15 Dose: 3 unit Metoprolol Tartrate (Lopressor) 25 mg PO BID [facility] Last Admin: 07/03/18 09:10 Dose: 25 mg Mometasone Furoate/Formoterol Fumar (Dulera 200 Mcg/5 Mcg Inhaler) 2 puff INH BID-RT [facility] Last Admin: 07/03/18 07:25 Dose: 2 puff Morphine Sulfate (Morphine) 2 mg SLOW IVP Q4H PRN PRN Reason: Moderate Pain (1-5) 2ND LINE Last Admin: 06/29/18 09:48 Dose: 2 mg Morphine Sulfate (Morphine) 4 mg SLOW IVP Q4H PRN PRN Reason: Severe Pain (7-10) 2ND LINE Last Admin: 06/28/18 05:51 Dose: 4 mg Ondansetron HCl (Zofran) 4 mg IVP Q6H PRN PRN Reason: Nausea Last Admin: 06/23/18 08:04 Dose: 4 mg Promethazine HCl (Phenergan) 25 mg IM Q4H PRN PRN Reason: Nausea Last Admin: 06/22/18 00:38 Dose: 25 mg Sodium Chloride (Flush - Normal Saline) 10 ml IVF PRN PRN PRN Reason: Saline Flush Last Admin: 07/02/18 00:33 Dose: 10 ml Throat Lozenges (Cepastat Lozenges) 1 patricia PO Q2H PRN PRN Reason: SORE THROAT Last Admin: 06/26/18 23:36 Dose: 1 patricia
[2018-07-03] MEDS: Micafungin 100 MG in Sodium Chloride 0.9% 100 ML IVPB SCH (20:04)
[2018-07-04] MEDS: Piperacillin/Tazobactam 3.375 GM in Sodium Chloride 0.9% 100 ML IVPB SCH ×2 (00:58→06:30)
[2018-07-04] MEDS: HYDROcodone/Acetaminophen 10/325 mg Tablet PO PRN ×4 (05:57→19:03)
[2018-07-04 06:02] LABS: #Eosinphils 0.1 thou/uL (0.0-0.7); #Lymphocytes 1.4 thou/uL (1.20-3.40); #Monocytes 0.9 thou/uL (0.11-0.59); %Basophils 0.3 % (0.0-1.0); %Eosinophils 0.6 % (0.0-10.0); %Lymphocytes 14.5 % (21.0-51.0); %Monocytes 9.8 % (0.0-10.0); %Neutrophils 74.9 % (42.0-75.0); Hemoglobin 9.4 g/dL (12.0-16.0); Mean Corpuscular HGB CONC 30.8 g/dL (32.0-36.0); Mean Corpuscular Hemoglobin 29.8 pg (27.0-31.0); Mean Corpuscular Volume 96.7 fL (78.0-98.0); Mean Platelet Volume 6.6 fL (7.4-10.4); Platelet Count 492 thou/uL (130-400); RBC Distribution Width 14.3 % (11.5-14.5); Red Blood Cell (RBC) Count 3.16 mill/uL (4.20-5.40); White Blood Cell (WBC) Count 9.4 thou/uL (4.8-10.8)
[2018-07-04] MEDS: Mometasone/Formoterol 120 PUFF INHALER INH SCH ×2 (06:14→19:40)
[2018-07-04 06:25] LABS: Anion Gap 13 mmol/L (10-20); BUN (Urea Nitrogen) 4 mg/dL (9.8-20.1); Calc. Creatinine Clearance 140 mL/min (70-130); Calcium 8.4 mg/dL (7.8-10.44); Carbon Dioxide 23 mmol/L (22-29); Chloride 100 mmol/L (98-107); Estimated GFR-MDRD Greater than 90; Glucose 109 mg/dL (70-105); Potassium 3.7 mmol/L (3.5-5.1); Sodium 132 mmol/L (136-145)
[2018-07-04] MEDS: Docusate 100 MG CAP PO SCH ×2 (08:47→21:29)
[2018-07-04] MEDS: Famotidine 20 MG TAB PO SCH ×2 (08:47→21:29)
[2018-07-04] MEDS: Metoprolol Tartrate 25 MG TAB PO SCH ×2 (08:48→21:29)
[2018-07-04] MEDS: Enoxaparin Sodium 40 MG/0.4 ML SYRINGE SC SCH (10:54)
--- NOTE | 2018-07-04 10:54 | PRG ---
DATE OF SERVICE: 07/04/2018 Ms. Werner is doing well. She is working with physical therapy. PLAN: Switch her to oral antibiotics today. Discontinue her JORGE L drain. I suspect she will be going to [facility] in the next few days.
[2018-07-04] MEDS ORDERED: Potassium Chloride 20 MEQ TAB PO SCH (12:00)
--- NOTE | 2018-07-04 12:19 | PRG ---
DATE OF SERVICE: 07/04/2018 SERVICE: Pulmonary Medicine. INTERVAL HISTORY: The patient is doing fine from a respiratory standpoint. She is breathing comfortably. There were no overnight events. Her strength is improving a little bit. Otherwise, there has been no interval change to her condition. Nursing reports no overnight events. She specifically indicates that her shortness of breath is at baseline, she has not had any chest discomfort or palpitations. PHYSICAL EXAMINATION: VITAL SIGNS: Afebrile, pulse 101, blood pressure 111/74, respirations 18, saturation 95% on 2 liters nasal cannula. GENERAL: The patient is awake, alert, in no apparent distress. LUNGS: Excellent air entry with no prolonged expiratory phase or wheezing. HEART: Normal rate, regular. ABDOMEN: Soft, nontender, nondistended. Bowel sounds are positive. MUSCULOSKELETAL: No cyanosis or clubbing. There is no pitting in the bilateral lower extremities. NEUROLOGIC: Grossly nonfocal. LABORATORY DATA: WBC 9.4, hemoglobin 9.4, platelets 492,000. Differential is normal. Basic metabolic profile is essentially unremarkable except for sodium of 132 and potassium 3.7. ASSESSMENT: 1. Acute on chronic hypoxic respiratory failure. 2. Chronic obstructive pulmonary disease with mild exacerbation, resolved. 3. Gross peritonitis secondary to perforated colon from diverticulitis. 4. Colectomy, postop day #20. 5. Severe sepsis, resolved. 6. Type 2 diabetes mellitus. DISCUSSION AND PLAN: The patient will remain here until she is safe for transition out of this facility. From a purely respiratory perspective, she is stable for transition out of the hospital. Potassium will be replaced today. I will discontinue her Conner catheter. No changes will be made to her medications. RASHAD
[2018-07-04] MEDS: HumaLOG 300 UNITS/3 ML VIAL SC PRN (13:06)
--- NOTE | 2018-07-04 13:27 | PDOC.PN ---
- Subjective Encounter Start Date: 07/04/18 Encounter Start Time: 13:27 Subjective: feels better agian today. -: able to get out of bed and eating better - Objective Resuscitation Status: Resuscitation Status FULL:Full Resuscitation MAR Reviewed: Yes Vital Signs & Weight: Vital Signs (12 hours) Temp Pulse Resp BP Pulse Ox 07/04/18 11:15 121/68 94 L 07/04/18 11:10 97.9 F 88 18 173/84 H 91 L 07/04/18 08:00 95 07/04/18 07:19 98 F 101 H 18 111/74 95 07/04/18 06:13 85 20 95 07/04/18 04:00 98.8 F 95 20 146/97 H 96 Weight Admit Weight 200 lb 0.054 oz Weight 195 lb Most Recent Monitor Data Heart Rate from ECG 110 NIBP 145/90 NIBP BP-Mean 140 Respiration from ECG 14 SpO2 95 I&O: 07/03/18 07/04/18 07/05/18 06:59 06:59 06:59 Intake Total 1650 1100 720 Output Total 1910 550 910 Balance -260 550 -190 Result Diagrams: 07/04/18 05:45 07/04/18 05:45 Additional Labs: Accuchecks 07/04/18 07/04/18 07/03/18 11:12 05:56 21:22 POC Glucose 189 H 100 134 H 07/03/18 15:30 POC Glucose 125 H Laboratory Tests 07/03/18 07/03/18 07/03/18 05:27 11:06 15:30 POC Glucose 108 137 H 125 H 07/03/18 07/04/18 21:22 05:56 POC Glucose 134 H 100 Phys Exam - Physical Examination Constitutional: NAD HEENT: PERRLA, moist MMs, sclera anicteric, oral pharynx no lesions, 2+ tonsils Neck: no nodes, no JVD, supple, full ROM Respiratory: no wheezing, no rales, no rhonchi, clear to auscultation bilateral Cardiovascular: RRR, no significant murmur Gastrointestinal: soft, non-tender, no distention, positive bowel sounds JORGE L drain removed.wound vac .ostomy bag empty Musculoskeletal: no edema, pulses present Neurological: non-focal, normal sensation, moves all 4 limbs Psychiatric: normal affect, A&O x 3 Skin: no rash Dx/Plan (1) Hypoglycemia Code(s): E16.2 - HYPOGLYCEMIA, UNSPECIFIED Status: Acute Comment: improved. lantus on hold (2) Peritonitis Code(s): K65.9 - PERITONITIS, UNSPECIFIED Status: Acute Comment: on ABx.changed to Po today (3) Sepsis Code(s): A41.9 - SEPSIS, UNSPECIFIED ORGANISM Status: Acute Qualifiers: Sepsis type: sepsis due to unspecified organism Qualified Code(s): A41.9 - Sepsis, unspecified organism (4) Diverticulitis of colon with perforation Code(s): K57.20 - DVTRCLI OF LG INT W PERFORATION AND ABSCESS W/O BLEEDING Status: Acute Comment: s/p laparotomy, sigmoid colectomy and colostomy.POD # 20 (5) Anemia, normocytic normochromic Code(s): D64.9 - ANEMIA, UNSPECIFIED Status: Chronic (6) COPD (chronic obstructive pulmonary disease) Status: Chronic (7) Diabetes mellitus, type II Status: Chronic Qualifiers: Diabetes mellitus group home insulin use: without group home use Diabetes mellitus complication status: without complication Qualified Code(s): E11.9 - Type 2 diabetes mellitus without complications Comment: Uncontrolled (8) Hypertension Code(s): I10 - ESSENTIAL (PRIMARY) HYPERTENSION Status: Chronic Qualifiers: Hypertension type: essential hypertension Qualified Code(s): I10 - Essential (primary) hypertension (9) Obesity (BMI 30-39.9) Code(s): E66.9 - OBESITY, UNSPECIFIED Status: Chronic (10) Tobacco abuse Code(s): Z72.0 - TOBACCO USE Status: Chronic - Plan continue antibiotics, PT/OT, out of bed/ambulate, DVT proph w/SCDs BS and BP controlled. -: cont meds as below. -: OK to DC from IM stand point to rehab * . Review of Systems - Review of Systems Constitutional: weakness, malaise. negative: fever, chills, sweats, other Respiratory: negative: Cough, Dry, Shortness of Breath, Hemoptysis, SOB with Excertion, Pleuritic Pain, Sputum, Wheezing Cardiovascular: negative: chest pain, palpitations, orthopnea, paroxysmal nocturnal dyspnea, edema, light headedness, other Gastrointestinal: negative: Nausea, Vomiting, Abdominal Pain, Diarrhea, Constipation, Melena, Hematochezia, Other Genitourinary: negative: Dysuria, Frequency, Incontinence, Hematuria, Retention , Other Musculoskeletal: negative: Neck Pain, Shoulder Pain, Arm Pain, Back Pain, Hand Pain, Leg Pain, Foot Pain, Other Skin: negative: Rash, Lesions, Isaiah, Bruising, Other Neurological: negative: Weakness, Numbness, Incoordination, Change in Speech, Confusion, Seizures, Other - Medications/Allergies Allergies/Adverse Reactions: Allergies Allergy/AdvReac Type Severity Reaction Status Date / Time Sulfa (Sulfonamide Allergy Severe Anaphylaxis Verified 06/25/17 19:45 Antibiotics) Medications: Current Medications Hydrocodone Bitart/Acetaminophen ([place] 10/325) 1 tab PO Q4H PRN PRN Reason: Moderate Pain (4-6) Last Admin: 07/03/18 02:27 Dose: 1 tab Hydrocodone Bitart/Acetaminophen ([place] 10/325) 2 tab PO Q4H PRN PRN Reason: PAIN-SEV 1ST LINE Last Admin: 07/04/18 11:26 Dose: 2 tab Albuterol/Ipratropium (Duoneb) 3 ml NEB Q4H PRN PRN Reason: Wheezing Albuterol/Ipratropium (Duoneb) 3 ml NEB [id number] [facility] Last Admin: 07/04/18 13:28 Dose: 3 ml Dextrose/Water (Dextrose 50%) 25 gm SLOW IVP PRN PRN PRN Reason: Hypoglycemia Docusate Sodium (Colace) 100 mg PO BID [facility] Last Admin: 07/04/18 08:47 Dose: 100 mg Enoxaparin Sodium (Lovenox) 40 mg SC 0900 [facility] Last Admin: 07/04/18 10:54 Dose: 40 mg Famotidine (Pepcid) 20 mg PO BID [facility] Last Admin: 07/04/18 08:47 Dose: 20 mg Glucagon (Glucagon) 1 mg IM PRN PRN PRN Reason: Hypoglycemia Hydralazine HCl (Apresoline) 10 mg SLOW IVP Q4H PRN PRN Reason: SBP > 170 or DBP > 100 Dextrose/Water (D5w) 1,000 mls @ 0 mls/hr IV .Q0M PRN PRN Reason: Hypoglycemia Last Admin: 06/16/18 13:05 Dose: 1,000 mls Insulin Human Lispro (Humalog) 0 units SC .AGGRESSIVE SLIDING PRN; Protocol PRN Reason: AGGRESSIVE SLIDING SCALE Last Admin: 07/04/18 13:06 Dose: 3 unit Levofloxacin (Levaquin) 500 mg PO 0600 [facility] Metoprolol Tartrate (Lopressor) 25 mg PO BID [facility] Last Admin: 07/04/18 08:48 Dose: 25 mg Metronidazole (Flagyl) 500 mg PO TID [facility] Mometasone Furoate/Formoterol Fumar (Dulera 200 Mcg/5 Mcg Inhaler) 2 puff INH BID-RT [facility] Last Admin: 07/04/18 06:14 Dose: 2 puff Morphine Sulfate (Morphine) 2 mg SLOW IVP Q4H PRN PRN Reason: Moderate Pain (1-5) 2ND LINE Last Admin: 06/29/18 09:48 Dose: 2 mg Morphine Sulfate (Morphine) 4 mg SLOW IVP Q4H PRN PRN Reason: Severe Pain (7-10) 2ND LINE Last Admin: 06/28/18 05:51 Dose: 4 mg Ondansetron HCl (Zofran) 4 mg IVP Q6H PRN PRN Reason: Nausea Last Admin: 06/23/18 08:04 Dose: 4 mg Potassium Chloride (K-Dur) 40 meq PO NOW [facility] Stop: 07/04/18 14:00 Last Admin: 07/04/18 13:06 Dose: 40 meq Promethazine HCl (Phenergan) 25 mg IM Q4H PRN PRN Reason: Nausea Last Admin: 06/22/18 00:38 Dose: 25 mg Sodium Chloride (Flush - Normal Saline) 10 ml IVF PRN PRN PRN Reason: Saline Flush Last Admin: 07/03/18 20:05 Dose: 10 ml Throat Lozenges (Cepastat Lozenges) 1 patricia PO Q2H PRN PRN Reason: SORE THROAT Last Admin: 06/26/18 23:36 Dose: 1 patricia
[2018-07-04] MEDS: metroNIDAZOLE 500 MG TAB PO SCH ×2 (15:05→21:29)
[2018-07-04] MEDS ORDERED: HYDROcodone/Acetaminophen 10/325 mg Tablet PO PRN (16:49)
[2018-07-04] MEDS: Promethazine HCl 25 MG/ML VIAL IM PRN (23:35)
[2018-07-05] MEDS: HYDROcodone/Acetaminophen 10/325 mg Tablet PO PRN ×3 (05:39→16:40)
[2018-07-05] MEDS: Mometasone/Formoterol 120 PUFF INHALER INH SCH (06:00)
[2018-07-05] MEDS: Docusate 100 MG CAP PO SCH (08:51)
[2018-07-05] MEDS: metroNIDAZOLE 500 MG TAB PO SCH ×2 (08:51→16:40)
[2018-07-05] MEDS: Enoxaparin Sodium 40 MG/0.4 ML SYRINGE SC SCH (08:51)
[2018-07-05] MEDS: Metoprolol Tartrate 25 MG TAB PO SCH (08:52)
[2018-07-05] MEDS: Famotidine 20 MG TAB PO SCH (08:55)
[2018-07-05] MEDS ORDERED: Fluconazole 100 MG TAB PO SCH (10:00)
[2018-07-05] MEDS: Ondansetron ODT 4 MG TAB PO PRN ×2 (10:43→16:40)
[2018-07-05] MEDS: HumaLOG 300 UNITS/3 ML VIAL SC PRN (12:28)
--- NOTE | 2018-07-05 14:23 | PDOC.PN ---
- Subjective Encounter Start Date: 07/05/18 Encounter Start Time: 14:21 Subjective: feels better but still weak. -: not feeling hungry,feels nauseated -: seen and examined - Objective Resuscitation Status: Resuscitation Status FULL:Full Resuscitation MAR Reviewed: Yes Vital Signs & Weight: Vital Signs (12 hours) Temp Pulse Resp BP Pulse Ox 07/05/18 11:44 89 18 93 L 07/05/18 11:41 97.9 F 106 H 20 120/78 93 L 07/05/18 08:45 94 L 07/05/18 07:30 97.6 F 98 20 96/65 94 L 07/05/18 06:00 95 16 94 L 07/05/18 05:59 95 16 94 L 07/05/18 04:00 98.5 F 93 16 118/79 94 L 07/05/18 02:27 95 Weight Admit Weight 200 lb 0.054 oz Weight 195 lb Most Recent Monitor Data Heart Rate from ECG 110 NIBP 145/90 NIBP BP-Mean 140 Respiration from ECG 14 SpO2 95 I&O: 07/04/18 07/05/18 07/06/18 06:59 06:59 06:59 Intake Total 1100 1520 Output Total 550 1775 Balance 550 -255 Result Diagrams: 07/04/18 05:45 07/04/18 05:45 Additional Labs: Accuchecks 07/05/18 07/05/18 07/04/18 11:00 05:34 22:25 POC Glucose 172 H 115 H 102 07/04/18 15:43 POC Glucose 97 Microbiology 06/13/18 12:10 Colon Bacterial Culture - Final 06/13/18 12:10 Colon Anaerobic Culture - Final Anaerobic cocci Anaerobic cocci#2 Anaerobic Gram Negative Usman Anaerobic Gram Negative Usman#2 Anaerobic Gram Negative Usman#3 Phys Exam - Physical Examination Constitutional: NAD HEENT: PERRLA, moist MMs, sclera anicteric, oral pharynx no lesions Neck: no nodes, no JVD, supple, full ROM Respiratory: no wheezing, no rales, no rhonchi, clear to auscultation bilateral Cardiovascular: RRR, no significant murmur, no rub Gastrointestinal: soft, non-tender, no distention, positive bowel sounds Musculoskeletal: no edema, pulses present Neurological: non-focal, normal sensation, moves all 4 limbs Psychiatric: normal affect, A&O x 3 Skin: no rash Dx/Plan (1) Hypoglycemia Code(s): E16.2 - HYPOGLYCEMIA, UNSPECIFIED Status: Acute Comment: improved. lantus on hold (2) Peritonitis Code(s): K65.9 - PERITONITIS, UNSPECIFIED Status: Acute Comment: on ABx.changed to Po (3) Sepsis Code(s): A41.9 - SEPSIS, UNSPECIFIED ORGANISM Status: Acute Qualifiers: Sepsis type: sepsis due to unspecified organism Qualified Code(s): A41.9 - Sepsis, unspecified organism (4) Diverticulitis of colon with perforation Code(s): K57.20 - DVTRCLI OF LG INT W PERFORATION AND ABSCESS W/O BLEEDING Status: Acute Comment: s/p laparotomy, sigmoid colectomy and colostomy.POD # 21 (5) Anemia, normocytic normochromic Code(s): D64.9 - ANEMIA, UNSPECIFIED Status: Chronic (6) COPD (chronic obstructive pulmonary disease) Status: Chronic (7) Diabetes mellitus, type II Status: Chronic Qualifiers: Diabetes mellitus termite inspector insulin use: without termite inspector use Diabetes mellitus complication status: without complication Qualified Code(s): E11.9 - Type 2 diabetes mellitus without complications Comment: Uncontrolled (8) Hypertension Code(s): I10 - ESSENTIAL (PRIMARY) HYPERTENSION Status: Chronic Qualifiers: Hypertension type: essential hypertension Qualified Code(s): I10 - Essential (primary) hypertension (9) Obesity (BMI 30-39.9) Code(s): E66.9 - OBESITY, UNSPECIFIED Status: Chronic (10) Tobacco abuse Code(s): Z72.0 - TOBACCO USE Status: Chronic - Plan continue antibiotics, PT/OT, respiratory therapy, incentive spirometry, out of bed/ambulate, DVT proph w/SCDs blood sugar controlled on ISS. encouraged PO intake/Glucerna -: BP controlled w Metoprolol. -: OK to DC to rehab when arranged. -: IM team will follow -: hemodynamically stable * . Review of Systems - Review of Systems Constitutional: weakness, malaise. negative: fever, chills, sweats, other ENT: negative: Ear Pain, Ear Discharge, Nose Pain, Nose Discharge, Nose Congestion, Mouth Pain, Mouth Swelling, Throat Pain, Throat Swelling, Other Respiratory: negative: Cough, Dry, Shortness of Breath, Hemoptysis, SOB with Excertion, Pleuritic Pain, Sputum, Wheezing Cardiovascular: negative: chest pain, palpitations, orthopnea, paroxysmal nocturnal dyspnea, edema, light headedness, other Gastrointestinal: Nausea. negative: Vomiting, Abdominal Pain, Diarrhea, Constipation, Melena, Hematochezia, Other Genitourinary: negative: Dysuria, Frequency, Incontinence, Hematuria, Retention , Other Musculoskeletal: negative: Neck Pain, Shoulder Pain, Arm Pain, Back Pain, Hand Pain, Leg Pain, Foot Pain, Other Skin: negative: Rash, Lesions, Isaiah, Bruising, Other Neurological: negative: Weakness, Numbness, Incoordination, Change in Speech, Confusion, Seizures, Other - Medications/Allergies Allergies/Adverse Reactions: Allergies Allergy/AdvReac Type Severity Reaction Status Date / Time Sulfa (Sulfonamide Allergy Severe Anaphylaxis Verified 06/25/17 19:45 Antibiotics) Medications: Current Medications Hydrocodone Bitart/Acetaminophen ([place] 10/325) 1 tab PO Q4H PRN PRN Reason: Moderate Pain (4-6) Last Admin: 07/05/18 12:26 Dose: 1 tab Hydrocodone Bitart/Acetaminophen ([place] 10/325) 2 tab PO Q4H PRN PRN Reason: PAIN-SEV 1ST LINE Last Admin: 07/04/18 23:36 Dose: 2 tab Albuterol/Ipratropium (Duoneb) 3 ml NEB Q4H PRN PRN Reason: Wheezing Albuterol/Ipratropium (Duoneb) 3 ml NEB [id number] [facility] Last Admin: 07/05/18 11:44 Dose: 3 ml Dextrose/Water (Dextrose 50%) 25 gm SLOW IVP PRN PRN PRN Reason: Hypoglycemia Docusate Sodium (Colace) 100 mg PO BID [facility] Last Admin: 07/05/18 08:51 Dose: 100 mg Enoxaparin Sodium (Lovenox) 40 mg SC 0900 [facility] Last Admin: 07/05/18 08:51 Dose: 40 mg Famotidine (Pepcid) 20 mg PO BID [facility] Last Admin: 07/05/18 08:55 Dose: 20 mg Glucagon (Glucagon) 1 mg IM PRN PRN PRN Reason: Hypoglycemia Hydralazine HCl (Apresoline) 10 mg SLOW IVP Q4H PRN PRN Reason: SBP > 170 or DBP > 100 Dextrose/Water (D5w) 1,000 mls @ 0 mls/hr IV .Q0M PRN PRN Reason: Hypoglycemia Last Admin: 06/16/18 13:05 Dose: 1,000 mls Insulin Human Lispro (Humalog) 0 units SC .AGGRESSIVE SLIDING PRN; Protocol PRN Reason: AGGRESSIVE SLIDING SCALE Last Admin: 07/05/18 12:28 Dose: 3 unit Levofloxacin (Levaquin) 500 mg PO 0600 [facility] Last Admin: 07/05/18 05:39 Dose: 500 mg Metoprolol Tartrate (Lopressor) 25 mg PO BID [facility] Last Admin: 07/05/18 08:52 Dose: Not Given Metronidazole (Flagyl) 500 mg PO TID [facility] Last Admin: 07/05/18 08:51 Dose: 500 mg Mometasone Furoate/Formoterol Fumar (Dulera 200 Mcg/5 Mcg Inhaler) 2 puff INH BID-RT [facility] Last Admin: 07/05/18 06:00 Dose: 2 puff Ondansetron HCl (Zofran) 4 mg IVP Q6H PRN PRN Reason: Nausea Last Admin: 06/23/18 08:04 Dose: 4 mg Ondansetron HCl (Zofran Odt) 4 mg PO Q6H PRN PRN Reason: Nausea/Vomiting Last Admin: 07/05/18 10:43 Dose: 4 mg Promethazine HCl (Phenergan) 25 mg IM Q4H PRN PRN Reason: Nausea Last Admin: 07/04/18 23:35 Dose: 25 mg Sodium Chloride (Flush - Normal Saline) 10 ml IVF PRN PRN PRN Reason: Saline Flush Last Admin: 07/03/18 20:05 Dose: 10 ml Throat Lozenges (Cepastat Lozenges) 1 patricia PO Q2H PRN PRN Reason: SORE THROAT Last Admin: 06/26/18 23:36 Dose: 1 patricia
[2018-07-05 15:41] VITALS: BP 121/78; TEMP 99
[2018-07-06] MEDS ORDERED: Fluconazole 100 MG TAB PO SCH (09:00)
--- NOTE | 2018-07-06 14:57 | DIS ---
ADMITTING DIAGNOSES: 1. Ruptured sigmoid diverticulitis. 2. Chronic obstructive pulmonary disease. 3. Chronic steroid dependence. 4. Morbid obesity. 5. Chronic deconditioning. 6. Diabetes mellitus type 2. PROCEDURES: Exploratory laparotomy, sigmoid colectomy, colostomy by Dr. Sears. CONDITION AT DISCHARGE: Improved. Patient discharged to snf. HOSPITAL COURSE: The patient was admitted with a perforation in her abdomen. She underwent emergent surgery. Her postop course was complicated by chronic deconditioning. Her postop course and improv ement was limited by her COPD and her morbid obesity. She had a large open wound secondary to her fe hilton peritonitis and this required a wound VAC. The patient slowly improved. Her ostomy function imp roved. Her TPN was stopped. Her diet was advanced. She was switched over to oral antibiotics. On the day of discharge, she is doing well. She is tolerating regular food. She is to be discharged to snf. She has continued wound VAC. Her antibiotics have been switched to orals. She wi ll follow up with me in my office in 2 weeks.
== END 2018-07-05 17:00 | disposition home or self-care (01) | DRG 329 ==
LOC: ERS 23:04 → SURG B 06-13 01:38 → CCU 06-13 13:42 → SURG A 06-16 15:58
PROVIDERS: ADMIT Surgery; ATTEND Surgery
PROC: 0DBN0ZZ Excision of Sigmoid Colon, Open Approach (ICD-10-PCS; principal; 2018-06-13)
PROC: 05HM33Z Insertion of Infusion Device into Right Internal Jugular Vein, Percutaneous Approach (ICD-10-PCS; 2018-06-13)
PROC: 02H633Z Insertion of Infusion Device into Right Atrium, Percutaneous Approach (ICD-10-PCS; 2018-06-27)
PROC: B244ZZZ Ultrasonography of Right Heart (ICD-10-PCS; 2018-06-27)
DX: K57.20 Diverticulitis of large intestine with perforation and abscess without bleeding (principal); A41.9 Sepsis, unspecified organism; R65.20 Severe sepsis without septic shock; J96.21 Acute and chronic respiratory failure with hypoxia; J44.1 Chronic obstructive pulmonary disease with (acute) exacerbation; I50.32 Chronic diastolic (congestive) heart failure; K56.7 Ileus, unspecified; N17.9 Acute kidney failure, unspecified; E16.2 Hypoglycemia, unspecified; D64.9 Anemia, unspecified; E11.649 Type 2 diabetes mellitus with hypoglycemia without coma; I11.0 Hypertensive heart disease with heart failure; Z68.36 Body mass index [BMI] 36.0-36.9, adult; Z72.0 Tobacco use; Z88.2 Allergy status to sulfonamides; E66.01 Morbid (severe) obesity due to excess calories
CPT/HCPCS: 36415; 36416; 36569; 71045; 74177; 80048; 80061; 82805; 83036; 83735; 84100; 84134; 85007; 85025; 85027; 85610; 85730; 87070; 87205; 88307; 94002; 94003; 94640; 96374; A4216; A4217; C1713; C1751; G8978-GP-CM; G8979-GP-CK; G8980-GP-CK; J0131; J1170; J1200; J1610; J1644; J1650; J1720; J1815; J1940; J2001; J2060; J2248; J2250; J2270; J2405; J2543; J2550; J2704; J2920; J2997; J3010; J3475; J3480; J7050; J7620; Q0162; S0028

== ENCOUNTER 2018-09-01 09:34 | Emergency (ER) | payer SELFPAY ==
[2018-09-01] MEDS ORDERED: Ondansetron PF 4 MG/2 ML Vial ONE (09:49)
[2018-09-01 10:08] LABS: #Basophils 0.1 thou/uL (0.0-0.2); #Eosinphils 0.1 thou/uL (0.0-0.7); #Lymphocytes 3.5 thou/uL (1.20-3.40); #Monocytes 1.2 thou/uL (0.11-0.59); #Neutrophils 5.6 thou/uL (1.40-6.50); %Basophils 1.2 % (0.0-1.0); %Eosinophils 0.6 % (0.0-10.0); %Lymphocytes 33.2 % (21.0-51.0); %Monocytes 11.7 % (0.0-10.0); %Neutrophils 53.3 % (42.0-75.0); Hemoglobin 12.2 g/dL (12.0-16.0); Mean Corpuscular HGB CONC 31.1 g/dL (32.0-36.0); Mean Corpuscular Hemoglobin 27.3 pg (27.0-31.0); Mean Corpuscular Volume 87.8 fL (78.0-98.0); Mean Platelet Volume 6.7 fL (7.4-10.4); Platelet Count 463 thou/uL (130-400); RBC Distribution Width 16.2 % (11.5-14.5); Red Blood Cell (RBC) Count 4.49 mill/uL (4.20-5.40); White Blood Cell (WBC) Count 10.5 thou/uL (4.8-10.8)
[2018-09-01 10:30] LABS: Bilirubin Negative (Negative); Blood, Urine Negative (Negative); Clarity CLOUDY (Clear); Glucose, Urine (Dipstick) Negative (Negative); Leukocyte Large (Negative); Nitrite Negative (Negative); Protein, Urine (Dipstick) Negative (Neg-Trace); Specific Gravity, Urine 1.014 (1.002-1.036); Urobilinogen 0.2 mg/dL (0.2-1.0)
[2018-09-01 10:31] LABS: ALT (SGPT) 15 U/L (8-55); AST (SGOT) 43 U/L (5-34); Albumin 2.8 g/dL (3.5-5.0); Alkaline Phosphatase 144 U/L (40-150); Anion Gap 16 mmol/L (10-20); BUN (Urea Nitrogen) 7 mg/dL (9.8-20.1); Bilirubin, Total 0.5 mg/dL (0.2-1.2); CK (CPK) 29 U/L (29-168); Calc. Creatinine Clearance 0 mL/min (70-130); Calcium 8.2 mg/dL (7.8-10.44); Carbon Dioxide 30 mmol/L (22-29); Chloride 91 mmol/L (98-107); Estimated GFR-MDRD 78; Globulin 4.1 g/dL (2.4-3.5); Glucose 105 mg/dL (70-105); Lipase 41 U/L (8-78); Protein, Total 6.9 g/dL (6.0-8.3); Sodium 134 mmol/L (136-145)
[2018-09-01 10:32] LABS: Bacteria/HPF None Seen HPF (None Seen); Hyaline Casts/LPF 7-10 HYALINE CAST LPF (0-3 Hyaline); Pathc Cast-AUWi Flag 2.03 (0-2.49); RBC/HPF 0-3 HPF (0-3)
[2018-09-01 10:34] LABS: CKMB 1.5 ng/mL (0-6.6); Troponin I Less than 0.010 ng/mL (< 0.028)
[2018-09-01 10:38] LABS: Potassium 2.9 mmol/L (3.5-5.1)
[2018-09-01] MEDS ORDERED: D5 1/2 NS w/20 mEq KCL 1,000 ML IV SCH (11:15)
[2018-09-01] MEDS ORDERED: Potassium Chloride 20 MEQ/100 ML PREMIX BAG ONE (12:22)
--- NOTE | 2018-09-01 12:28 | CT ---
CT ABDOMEN AND PELVIS WITH CONTRAST: HISTORY: Nausea and vomiting. COMPARISON: CT abdomen and pelvis from 06/22/2018. FINDINGS: The lung bases are clear. No pericardial effusion. There is inflammation along the left lower quadrant stoma. There is submucosal fatty infiltration of the ascending, transverse, and descending colon, likely chronic irritable bowel disease. The previously noted fluid collection in the pelvis has decreased in size, measuring approximately 4. 3 x 1.5 x 2.9 cm, previously measuring 6.2 x 2.4 cm. A small volume of gas is present within this co llection. Diffuse hepatic steatosis. There is a loop of small bowel that herniates through the ostomy defect in the left lower quadrant of the abdomen, without evidence of obstruction. There is some edema within the omentum. Small sliding hiatal hernia. The spleen is unremarkable, as well as the pancreas. No inflammatory c hange of the gallbladder. There is a wedge compression fracture at T10 with progress height loss from the comparison examinatio n, with approximately 50% anterior height loss. IMPRESSION: 1. Progressive height loss of the T10 compress fracture with likely approximately 50% anterior heigh t loss. 2. Mild inflammatory stranding along the peristomal fat from the ostomy, as well as some omental crystal ma, along with omental herniation through the ostomy defect, which may be vascular congestive changes . 3. Incomplete herniation of small bowel through the ostomy defect, without evidence of obstruction. 4. Extensive submucosal fatty infiltration of the remaining colon, likely from chronic irritable bow el disease. 5. Size decrease of the collection in the pelvis, although it does still contain gas. 6. Diffuse hepatic steatosis. POS: TPC
[2018-09-01] MEDS ORDERED: Iopamidol 370 76% 50 ML VIAL FS ONE (13:58)
[2018-09-01] MEDS ORDERED: ISOVUE-370 76%-LOCM 1 ML ONE (13:58)
[2018-09-01] MEDS ORDERED: Sodium Chloride 0.9% 100 ML ONE (14:02)
[2018-09-01] MEDS ORDERED: cefTRIAXone\\ROCEPHIN 2 GM VIAL ONE (14:02)
[2018-09-01] MEDS ORDERED: Metoclopramide HCl 10 MG/2 ML VIAL ONE (14:14)
== END 2018-09-01 15:10 | disposition home or self-care (01) ==
LOC: ERS 09:34
DX: N30.00 Acute cystitis without hematuria (principal); K91.89 Other postprocedural complications and disorders of digestive system; R11.2 Nausea with vomiting, unspecified; E87.6 Hypokalemia; I73.9 Peripheral vascular disease, unspecified; J44.9 Chronic obstructive pulmonary disease, unspecified; I25.10 Atherosclerotic heart disease of native coronary artery without angina pectoris; I50.9 Heart failure, unspecified; F32.9 Major depressive disorder, single episode, unspecified; Z87.891 Personal history of nicotine dependence; Z79.899 Other long term (current) drug therapy
CPT/HCPCS: 74177; 80053; 81003; 81015; 82550; 82553; 83690; 84484; 85025; 93005; 96361; 96365; 96368; 96375; J0696; J2405; J2765; J3480; J7050

== ENCOUNTER 2018-12-23 16:26 | Observation (INO) | payer SELFPAY ==
[2018-12-23] MEDS ORDERED: Magnesium 2 GM/50 ML BAG (IN WATER) ONE (17:35)
[2018-12-23] MEDS ORDERED: Dextrose 50% Abboject 50 ML SYRINGE SLOW IVP PRN (18:41)
[2018-12-23] MEDS ORDERED: Guaifenesin DM 100-10/5 ML UDCUP PO PRN (18:41)
[2018-12-23] MEDS ORDERED: Senokot S 8.6-50 MG TAB PO PRN (18:41)
[2018-12-23] MEDS ORDERED: HumaLOG 300 UNITS/3 ML VIAL SC PRN (18:41)
[2018-12-23] MEDS ORDERED: Dextrose 5% in Water 1,000 ML IV PRN (18:41)
--- NOTE | 2018-12-23 20:23 | HP ---
REASON FOR ADMISSION: COPD exacerbation. HISTORY OF PRESENTING ILLNESS: The patient gives history of wheezing, which started out this morning. She became extremely short of breath and finally went to [facility], from where she was transferred here. The patient has known history of COPD and is on 3 L home oxygen. She usually takes 2 to 3 nebulizations a day. She has followed on a periodic basis with Dr. Glasgow in the outpatient setting. She has cough with usual expectoration of sputum. No fever or upper respiratory infection. No flu-like illness at present. PAST MEDICAL AND SURGICAL HISTORY: 1. Ruptured sigmoid diverticulitis with peritonitis, status post sigmoid colectomy with end colostomy. 2. COPD. 3. Bilateral cataracts with right eye almost blind. 4. Osteoarthritis. 5. Dyslipidemia. 6. Prediabetes. 7. Appendectomy. 8. Neck surgery. 9. Tubal ligation. CURRENT MEDICATIONS: Takes; 1. Lopressor 25 mg twice daily. 2. Lisinopril 2.5 mg daily. 3. Famotidine 20 mg twice daily. 4. Lasix 20 mg daily. 5. Ventolin inhaler p.r.n. 6. Advair inhaler twice daily. 7. DuoNeb 2 to 3 times a day. ALLERGIES: ALLERGIC TO SULFA. PERSONAL HISTORY: Quit smoking 3 years ago, prior to which has smoked 1 pack a day for nearly 40 years. Does not abuse alcohol or drugs. She ambulates with a walker from last 1 year or so after getting deconditioned with prolonged hospitalization and loss of muscle mass from perforated sigmoid diverticulitis. She stays with her . FAMILY HISTORY: Mother at the age of 67 years, she has had history of heart failure. Father at the age of 62 years, he has had history of lung cancer and was a smoker. REVIEW OF SYSTEMS: CONSTITUTIONAL: Negative for weight loss or gain, ability to conduct usual activities. SKIN: Negative for rash, itching. EYES: Negative for double vision, pain. ENT/MOUTH: Negative for nose bleeding, neck stiffness, pain, tenderness. CARDIOVASCULAR: Negative for palpitations, dyspnea on exertion, orthopnea. RESPIRATORY: Negative for shortness of breath, wheezing, cough, hemoptysis, fever or night sweats. GASTROINTESTINAL: Negative for poor appetite, abdominal pain, heartburn, nausea, vomiting, constipation, or diarrhea. GENITOURINARY: Negative for urgency, frequency, dysuria, nocturia. MUSCULOSKELETAL: Negative for pain, swelling. NEUROLOGIC/PSYCHIATRIC: Negative for anxiety, depression. ALLERGY/IMMUNOLOGIC: Negative for skin rash, bleeding tendency. PHYSICAL EXAMINATION: GENERAL: The patient is a 58-year-old female, who is currently not in any acute distress. VITAL SIGNS: Blood pressure 114/70, pulse 86 beats per minute, respiratory rate 20 per minute, temperature 98 degrees Fahrenheit, saturating 95% on 3 L nasal cannula. NECK: Supple. No elevated JVD. HEENT: Eyes; extraocular muscles intact. Pupils reacting to light. There are bilateral dense cataracts, worse on the right side. Oral cavity, mucous membranes are moist. No exudates or congestion. CARDIOVASCULAR: S1 and S2 heard. Regular rhythm. RESPIRATORY: Air entry 1+ bilateral. Scattered wheezes plus bilateral. ABDOMEN: Soft. Colostomy bag is empty. No rigidity or guarding. Bowel sounds are heard. EXTREMITIES: No peripheral edema or calf tenderness. VASCULAR SYSTEM: Peripheral pulses 1+ bilateral. No ischemic ulcerations or gangrene. CENTRAL NERVOUS SYSTEM: No gross focal deficits noted. The patient is alert, awake, and oriented well. PSYCHIATRIC SYSTEM: The patient's mood is euthymic. No hallucinations or delusions. LABORATORY AND DIAGNOSTIC DATA: EKG done, shows normal sinus rhythm at 89 beats per minute with nonspecific ST-T wave changes. CT angio of chest done, shows no evidence of PE. There is moderate centrilobular emphysema. There is nonspecific mediastinal and bilateral hilar lymphadenopathy seen. Hepatomegaly with steatosis is seen. There are also T10 and T11 vertebral compression fractures of indeterminate age. White count of 7, H and H are 13 and 41, platelet count 227 with 61% neutrophils, MCV is 94. Potassium 3.2, serum bicarb 26, BUN 6, creatinine 0.7, serum glucose 126. Lactic acid 2.4. Albumin is 2.9. BNP is 141. Influenza A and B antigens are negative. CLINICAL IMPRESSION AND PLAN: The patient will be under observation on medical floor for chronic obstructive pulmonary disease exacerbation with history of chronic respiratory failure, on home oxygen 3 L by nasal cannula. She will be placed on DuoNeb, Solu-Medrol, and empiric Levaquin. We will also continue her Lopressor, lisinopril as before. We will continue to closely monitor her on medical floor. If the patient was to get worse, she will be switched over to inpatient status. Job ID: [id number]
[2018-12-23 21:50] VITALS: BMI 27.6
[2018-12-23] MEDS: Famotidine 20 MG TAB PO SCH (22:23)
[2018-12-23] MEDS: Metoprolol Tartrate 25 MG TAB PO SCH (22:24)
[2018-12-23] MEDS: Acetaminophen 325 MG TAB PO PRN (22:28)
[2018-12-23] MEDS: methylPREDNISolone Sod Succ 40 MG VIAL IVP SCH (23:37)
[2018-12-24] MEDS ORDERED: PROVENTIL INHALER 6.7 G (200 INHALATIONS) INH PRN (02:31)
[2018-12-24] MEDS: Acetaminophen 325 MG TAB PO PRN ×2 (03:34→08:03)
[2018-12-24] MEDS: methylPREDNISolone Sod Succ 40 MG VIAL IVP SCH ×2 (05:23→13:48)
[2018-12-24] MEDS ORDERED: Arformoterol 15 MCG/2 ML NEB NEB SCH (06:30)
[2018-12-24 06:39] LABS: #Lymphocytes 1.3 thou/uL (1.20-3.40); #Monocytes 0.2 thou/uL (0.11-0.59); #Neutrophils 2.4 thou/uL (1.40-6.50); %Eosinophils 0.1 % (0.0-10.0); %Monocytes 4.6 % (0.0-10.0); %Neutrophils 62.3 % (42.0-75.0); Hemoglobin 12.8 g/dL (12.0-16.0); Mean Corpuscular HGB CONC 30.9 g/dL (32.0-36.0); Mean Corpuscular Volume 96.9 fL (78.0-98.0); Mean Platelet Volume 7.9 fL (7.4-10.4); Platelet Count 210 thou/uL (130-400); RBC Distribution Width 14.5 % (11.5-14.5); Red Blood Cell (RBC) Count 4.26 mill/uL (4.20-5.40); White Blood Cell (WBC) Count 3.9 thou/uL (4.8-10.8)
[2018-12-24 06:58] LABS: Anion Gap 12 mmol/L (10-20); BUN (Urea Nitrogen) 6 mg/dL (9.8-20.1); Calc. Creatinine Clearance 93 mL/min (70-130); Calcium 8.8 mg/dL (7.8-10.44); Carbon Dioxide 25 mmol/L (22-29); Chloride 102 mmol/L (98-107); Estimated GFR-MDRD 83; Glucose 167 mg/dL (70-105); Sodium 136 mmol/L (136-145)
[2018-12-24] MEDS: Famotidine 20 MG TAB PO SCH (08:03)
[2018-12-24] MEDS: Metoprolol Tartrate 25 MG TAB PO SCH (08:03)
[2018-12-24] MEDS ORDERED: Enoxaparin Sodium 40 MG/0.4 ML SYRINGE SC SCH (09:00)
[2018-12-24] MEDS ORDERED: Lisinopril 2.5 MG TAB PO SCH (09:00)
[2018-12-24 12:04] VITALS: BP 145/67; TEMP 98
--- NOTE | 2018-12-24 16:30 | DIS ---
DATE OF ADMISSION: 12/23/2018 DATE OF DISCHARGE: 12/24/2018 DISCHARGE DISPOSITION: Home. PRIMARY DISCHARGE DIAGNOSES: 1. Acute on chronic obstructive pulmonary disease exacerbation. 2. Acute on chronic respiratory failure with hypoxia, resolved. SECONDARY DISCHARGE DIAGNOSES: 1. History of colostomy with prior sigmoid colectomy due to ruptured diverticulitis. 2. Prediabetes. 3. Osteoarthritis. 4. Hypertension. PROCEDURES DONE DURING HOSPITALIZATION: CT angio of chest done on the day of admission showed no evidence of PE. There was some moderate centrilobular emphysema. Old compression fractures of T10 and T11 vertebra were seen. Hemoglobin and hematocrit of 12 and 41, platelet count 210, MCV is 96. BNP 141. Blood cultures x2, no growth. Influenza A and B antigens were negative. DISCHARGE MEDICATIONS: 1. Prednisone tapering dose for a total duration of 5 days. 2. Lopressor 25 mg twice daily. 3. Lisinopril 2.5 mg daily. 4. Levaquin 500 mg p.o. daily for another 3 days. 5. Pepcid 20 mg twice daily. 6. DuoNeb q.i.d. p.r.n. 7. Advair inhaler twice daily. 8. Albuterol rescue inhaler p.r.n. ALLERGIES: SULFA. DISCHARGE PLAN: The patient to follow up with primary care physician in one week. BRIEF COURSE DURING HOSPITALIZATION: The patient initially came in with complaints of shortness of breath and wheezing. She has known history of COPD on 3 L home oxygen. The patient was admitted under observation to medical floor. She was placed on IV steroids along with empiric Levaquin. The patient has responded well to above measures. Her preliminary blood cultures are negative. Her breathing is better this morning with very minimal wheezing. She is ambulating in the room. She is hemodynamically stable and will be shortly discharged home. Please note, I have seen and examined the patient on the day of discharge. Job ID: [id number]
== END 2018-12-24 15:23 | disposition home or self-care (01) ==
LOC: ERS 16:26 → 2SW 21:31
PROVIDERS: ADMIT Internal Medicine; ATTEND Internal Medicine
DX: J44.1 Chronic obstructive pulmonary disease with (acute) exacerbation (principal); J96.21 Acute and chronic respiratory failure with hypoxia; R73.03 Prediabetes; E78.5 Hyperlipidemia, unspecified; H26.9 Unspecified cataract; M19.90 Unspecified osteoarthritis, unspecified site; Z99.81 Dependence on supplemental oxygen; Z90.49 Acquired absence of other specified parts of digestive tract; Z87.891 Personal history of nicotine dependence; Z87.19 Personal history of other diseases of the digestive system; Z98.51 Tubal ligation status; Z88.2 Allergy status to sulfonamides; Z79.51 Long term (current) use of inhaled steroids; Z79.52 Long term (current) use of systemic steroids; Z79.2 Long term (current) use of antibiotics; Z79.899 Other long term (current) drug therapy; Z98.890 Other specified postprocedural states
CPT/HCPCS: 36415; 36416; 80048; 85025; 94640; 96365; 96372; 96375; 96376; G0378; J1650; J1956; J2920; J3475; J7620

== ENCOUNTER 2020-07-25 20:01 | Inpatient (IN) | payer MEDICARE ==
[2020-07-25] MEDS ORDERED: Sodium Chloride 0.9% 1,000 ML IV SCH (20:30)
[2020-07-25] MEDS ORDERED: Acetaminophen 325 MG TAB PO PRN (20:30)
[2020-07-25] MEDS ORDERED: Ondansetron PF 4 MG/2 ML Vial IVP PRN ×2 (20:30→20:32)
[2020-07-25] MEDS ORDERED: Ondansetron ODT 4 MG TAB SL PRN (20:30)
[2020-07-25] MEDS ORDERED: cloNIDine 0.1 MG TAB PO PRN (20:32)
[2020-07-25] MEDS ORDERED: Guaifenesin DM 100-10/5 ML UDCUP PO PRN (20:32)
[2020-07-25] MEDS ORDERED: Labetalol HCl 100 MG/20 ML VIAL SLOW IVP PRN (20:32)
[2020-07-25] MEDS ORDERED: Promethazine HCl 12.5 MG in Sodium Chloride 0.9% 50 ML IVPB PRN (20:32)
[2020-07-25] MEDS ORDERED: HYDROcodone/Acetaminophen 5/325 mg Tablet PO PRN (20:32)
[2020-07-25] MEDS ORDERED: hydrALAZINE 20 MG/ML VIAL SLOW IVP PRN (20:32)
--- NOTE | 2020-07-25 20:37 | PDOC.HHP ---
Hospitalist HPI - History of Present Illness Shortness of breath History of Present Illness: Patient is a 60 year old female with PMH COPD on 3L oxygen at home, CAD, CHF, PAD who presents as [facility] for 2 weeks worsening shortness of breath. She reports symptoms started about 2 weeks ago with cough, SOB, increased congestion, wheezing. She went to PCP Dr Lance a few days ago and was put on po steroids but did not help. Last night her SOB became worse, was using home nebs and breathing treatments but failed to improve and went to ED. At [facility], vitals only significant for tachypnea, satting >92% on baseline 3L of O2, VBG performed w/ poCo2 60.8, ph 7.221, CXR read in ED reports no infiltrates/masses, no acute findings. she was given azithromycin and ceftriaxone, steroids, ivf, nebs. transferred here for further care. Hospitalist ROS - Review of Systems Constitutional: reports: sweats, weakness, malaise. denies: fever, chills Eyes: denies: pain, vision change, conjunctivae inflammation, eyelid inflammation, redness, other ENT: denies: ear pain, ear discharge, nose pain, nose discharge, nose congestion, mouth pain, mouth swelling, throat pain, throat swelling, other Respiratory: reports: cough, shortness of breath, SOB with excertion, wheezing. denies: dry, hemoptysis, pleuritic pain, sputum, other Cardiovascular: denies: chest pain, palpitations, orthopnea, paroxysmal noc. dyspnea, edema, light headedness, other Gastrointestinal: denies: nausea, vomiting, abdominal pain, diarrhea, constipation, melena, hematochezia, other Genitourinary: denies: dysuria, frequency, incontinence, hematuria, retention, other Musculoskeletal: denies: neck pain, shoulder pain, arm pain, back pain, hand pain, leg pain, foot pain, other Skin: denies: rash, lesions, guicho, bruising, other Neurological: denies: weakness, numbness, incoordination, change in speech, confusion, seizures, other All other systems reviewed; all pertinent +/- noted in HPI/Subj - Medication Medications: reviewed, famotidine, duoneb, lisinopril, metoprolol, albuterol, metformin, xanax, see ED documents for dosage and timing Hospitalist History - Past Medical History Other Medical History: COPD, CHF, PVD, CAD, colon rupture - Past Surgical History Other Surgical History: colostomy, colon resection, tubal ligation, appendectomy, cervical fusion - Family History Family History: reports: no pertinent history - Social History Smoking Status: Former smoker Drugs: reports: none - Exam General Appearance: NAD, awake alert Eye: PERRL, anicteric sclera ENT: normocephalic atraumatic, no oropharyngeal lesions, moist mucosa Neck: supple, symmetric, no JVD, no thyromegaly, no lymphadenopathy, no carotid bruit Heart: RRR, no murmur, no gallops, no rubs, normal peripheral pulses Respiratory: CTAB, no rales, no ronchi, normal chest expansion, no tachypnea, normal percussion, wheezes Respiratory - other findings: diffuse wheezing, prolonged expiratory phase Gastrointestinal: soft, non-tender, non-distended, normal bowel sounds, no palpable masses, no hepatomegaly, no splenomegaly, no bruit Extremities: no cyanosis, no clubbing, no edema Skin: normal turgor, no lesions, no rashes Neurological: cranial nerve grossly intact, normal sensation to touch, no weakness, no focal deficits, no new deficit Musculoskeletal: normal tone, normal strength, no muscle wasting Psychiatric: normal affect, normal behavior, A&O x 3 Hospitalist Results - Labs Additional comment: transfer documents 25 pages reviewed including labs, micro, imaging reports, ed documentation. Hospitalist H&P A/P - Plan Plan: Patient is a 60 year old female with PMH COPD on 3L oxygen at home, CAD, CHF, PAD who presents as [facility] for 2 weeks worsening shortness of breath. # COPD w/ exacerbation # respiratory acidosis # sepsis secondary to COPD exacerbation - arrived as transfer, patient w/ 2 weeks ago cough, SOB, increased congestion, wheezing, failed outpatient steroids, went to [facility], there imaging unremarkable, labs concerning for respiratory acidosis, transferred here for further care - admit to telemetry - repeat CXR, ABG to see progression of hypercapnia, may need BIPAP - continue advair, PRN + scheduled duoneb - continue azithromycin - IV steroids - used to see Dr Glasgow but does not have new histology aide, will consult distribution operations supervisor for establish care and assist with current situation # CHF - patient reports feeling a bit bloated, reports she takes PRN lasix at home, will give a few days of IV lasix to prevent CHF from becoming an issue, will order echocardiogram # DM - SSI # DVT/GI ppx
[2020-07-25] MEDS ORDERED: Electrolyte Replacement Protoc 1 EACH EACH FS SCH (20:45)
[2020-07-25] MEDS ORDERED: Azithromycin 500 MG in Sodium Chloride 0.9% 250 ML 250 ML IVPB SCH (21:00)
[2020-07-25] MEDS ORDERED: FLU VACC QS2020-21(6MOS UP)/PF 60 MCG/0.5 ML SYRINGE IM ONE (21:00)
[2020-07-25] MEDS ORDERED: Furosemide 20 MG/2 ML VIAL SLOW IVP SCH (21:00)
[2020-07-25] MEDS: Metoprolol Tartrate 25 MG TAB PO SCH (21:12)
[2020-07-25] MEDS: methylPREDNISolone Sod Succ 40 MG VIAL IVP SCH (21:12)
[2020-07-25] MEDS: Famotidine 20 MG TAB PO SCH (21:12)
[2020-07-25] MEDS: Heparin 5,000 UNITS/ML VIAL SC SCH (21:13)
[2020-07-25] MEDS ORDERED: Dextrose 50% Abboject 50 ML SYRINGE SLOW IVP PRN (21:20)
[2020-07-25] MEDS ORDERED: Dextrose 5% in Water 1,000 ML IV PRN (21:20)
[2020-07-25] MEDS: Acetaminophen 325 MG TAB PO PRN (22:00)
[2020-07-25] MEDS: Lorazepam 2 MG/ML VIAL SLOW IVP PRN (22:00)
[2020-07-25] MEDS ORDERED: methylPREDNISolone Sod Succ/PF 125 MG/2 ML VIAL IVP SCH (22:00)
--- NOTE | 2020-07-25 23:32 | RAD ---
Exam: Chest one view HISTORY:Exacerbation of COPD Comparison: 07/25/2020 at 4:13 PM FINDINGS: Cardiac silhouette: Normal Aorta: Atherosclerotic Pulmonary vessels: Normal Costophrenic angles: Clear LUNGS: Hyperinflation with chronic changes. Pneumothorax: None Osseous abnormalities: None IMPRESSION: 1. COPD. Chronic lung parenchymal changes. 2. Atherosclerosis
[2020-07-26 00:41] LABS: Actual Bicarbonate (HCO3a) 20.4 mEq/L (22-28); Base Excess (BEa) -4.6 mEq/L (-2.0 to +3.0); CO2 Tension 37.3 mmHg (35.0-45.0); Calcium, Ionized (arterial) 1.15 mmol/L (1.12-1.30); Carboxyhemoglobin (COHb) 0.2 gm% (0.0-3.0); Hemoglobin (Hb) 12.4 g/dL (12.0-16.0); Potassium - ABG Lab 4.16 mmol/L (3.70-5.30); pH, Arterial 7.36 (7.35-7.45)
[2020-07-26 00:43] LABS: ALV-art Gradient 73.015 mmHg (0-20); Puncture Site RBR
[2020-07-26] MEDS: Senokot 8.6 MG TAB PO PRN ×2 (02:58→09:07)
[2020-07-26 04:37] LABS: #Eosinphils 0.1 thou/uL (0.0-0.7); #Lymphocytes 0.9 thou/uL (1.20-3.40); #Monocytes 0.6 thou/uL (0.11-0.59); #Neutrophils 11.1 thou/uL (1.40-6.50); %Basophils 0.1 % (0.0-1.0); %Eosinophils 0.6 % (0.0-10.0); %Monocytes 5.1 % (0.0-10.0); %Neutrophils 87.3 % (42.0-75.0); Hemoglobin 11.7 g/dL (12.0-16.0); Mean Corpuscular HGB CONC 32.6 g/dL (32.0-36.0); Mean Corpuscular Hemoglobin 30.4 pg (27.0-31.0); Mean Corpuscular Volume 93.1 fL (78.0-98.0); Mean Platelet Volume 7.2 fL (7.4-10.4); Platelet Count 271 thou/uL (130-400); RBC Distribution Width 12.3 % (11.5-14.5); Red Blood Cell (RBC) Count 3.84 mill/uL (4.20-5.40); White Blood Cell (WBC) Count 12.7 thou/uL (4.8-10.8)
[2020-07-26 05:00] LABS: Anion Gap 13 mmol/L (10-20); BUN (Urea Nitrogen) 19 mg/dL (9.8-20.1); Calc. Creatinine Clearance 66 mL/min (70-130); Calcium 8.5 mg/dL (7.8-10.44); Carbon Dioxide 23 mmol/L (22-29); Chloride 106 mmol/L (98-107); Estimated GFR-MDRD 45; Glucose 361 mg/dL (70-105); Magnesium 1.8 mg/dL (1.6-2.6); Potassium 4.1 mmol/L (3.5-5.1); Sodium 138 mmol/L (136-145)
[2020-07-26] MEDS: methylPREDNISolone Sod Succ 40 MG VIAL IVP SCH ×3 (05:35→22:00)
[2020-07-26] MEDS: HumaLOG 300 UNITS/3 ML VIAL SC PRN ×2 (05:36→22:01)
[2020-07-26] MEDS ORDERED: Mometasone 100 MCG/Formoterol 5 MCG 120 PUFF INHALER INH SCH (06:30)
[2020-07-26] MEDS ORDERED: Magnesium 2 GM/50 ML 2 GM in Premix Bag 1 BAG IVPB SCH (07:00)
[2020-07-26] MEDS: Polyethylene Glycol 3350 17 GM Packet PO SCH (08:55)
[2020-07-26] MEDS: Famotidine 20 MG TAB PO SCH ×2 (09:07→20:03)
[2020-07-26] MEDS: Heparin 5,000 UNITS/ML VIAL SC SCH ×2 (09:07→19:59)
[2020-07-26] MEDS: Furosemide 20 MG/2 ML VIAL SLOW IVP SCH (09:08)
[2020-07-26] MEDS: Lorazepam 2 MG/ML VIAL SLOW IVP PRN (09:25)
[2020-07-26 09:37] LABS: Lactic Acid 2.3 mmol/L (0.5-2.2)
[2020-07-26 12:20] LABS: Actual Bicarbonate (HCO3a) 21.5 mEq/L (22-28); Base Excess (BEa) -3.5 mEq/L (-2.0 to +3.0); CO2 Tension 38.6 mmHg (35.0-45.0); Calcium, Ionized (arterial) 1.22 mmol/L (1.12-1.30); Carboxyhemoglobin (COHb) 0.1 gm% (0.0-3.0); Hemoglobin (Hb) 13.3 g/dL (12.0-16.0); O2 Tension (PaO2), arterial 145.8 mmHg (80.0-100.0); Puncture Site RB; pH, Arterial 7.36 (7.35-7.45)
[2020-07-26] MEDS: Metoprolol Tartrate 25 MG TAB PO SCH ×2 (13:14→20:03)
[2020-07-26] MEDS: Mometasone 200 MCG/Formoterol 5 MCG 120 PUFF INHALER INH SCH (18:33)
--- NOTE | 2020-07-26 18:42 | PDOC.HOSPP ---
- Subjective Encounter Date: 07/26/20 Encounter Time: 09:00 Subjective: Patient up in bed very short of breath. Patient put on BiPAP we will get an ABG. - Objective Vital Signs & Weight: Vital Signs (12 hours) Temp Pulse Resp BP Pulse Ox 07/26/20 18:38 115 H 20 96 07/26/20 18:33 115 H 22 H 96 07/26/20 15:10 94 20 94 L 07/26/20 15:03 98.7 F 102 H 12 142/60 H 98 07/26/20 11:40 98.6 F 102 H 14 140/63 99 07/26/20 11:37 98.6 F 99 20 140/63 99 07/26/20 11:22 98 20 98 07/26/20 08:01 98 07/26/20 08:00 98.1 F 75 14 146/76 H 96 07/26/20 07:59 99 20 98 Weight Weight 187 lb 9.6 oz I&O: 07/25/20 07/26/20 07/27/20 06:59 06:59 06:59 Intake Total 380 313 Output Total 1575 Balance 380 -1262 Result Diagrams: 07/26/20 04:05 07/26/20 04:05 Additional Labs: Accuchecks 07/26/20 07/26/20 07/26/20 16:41 10:31 05:35 POC Glucose 195 H 191 H 252 H 07/25/20 20:46 POC Glucose 234 H Hospitalist ROS - Review of Systems Respiratory: reports: shortness of breath Cardiovascular: denies: chest pain, palpitations, orthopnea, paroxysmal noc. dyspnea, edema, light headedness, other Gastrointestinal: denies: nausea, vomiting, abdominal pain, diarrhea, constipation, melena, hematochezia, other - Medication Medications: Active Medications Generic Name Dose Route Start Last Admin Trade Name Freq PRN Reason Stop Dose Admin Acetaminophen 650 mg 07/25/20 20:32 07/25/20 22:00 Acetaminophen 325 Mg Tab PO 650 mg Q4H PRN Administration Headache/Fever/Mild Pain (1-3) Hydrocodone Bitart/Acetaminophen 1 tab 07/25/20 20:32 07/26/20 11:45 Hydrocodone/Acetaminophen 5/325 Mg Tablet PO 1 tab Q4H PRN Administration Moderate Pain (4-6) Albuterol/Ipratropium 3 ml 07/25/20 20:28 07/26/20 00:32 Ipratropium/Albuterol Sulfate 3 Ml Neb NEB 3 ml Q2H PRN Administration SOB &/or Wheezing Albuterol/Ipratropium 3 ml 07/26/20 07:00 07/26/20 18:38 Ipratropium/Albuterol Sulfate 3 Ml Neb NEB 3 ml [id number] SAMUEL Administration Famotidine 20 mg 07/25/20 21:00 07/26/20 09:07 Famotidine 20 Mg Tab PO 20 mg BID SAMUEL Administration Furosemide 20 mg 07/26/20 09:00 07/26/20 09:08 Furosemide 20 Mg/2 Ml Vial SLOW IVP 07/27/20 09:01 20 mg DAILY SAMUEL Administration Heparin Sodium (Porcine) 5,000 units 07/25/20 21:00 07/26/20 09:07 Heparin 5,000 Units/Ml Vial SC 5,000 units BID SAMUEL Administration Insulin Human Lispro 0 units 07/25/20 21:20 07/26/20 05:36 Humalog 300 Units/3 Ml Vial SC 6 unit .MODERATE SLIDING SC PRN Administration Moderate Correctional Scale Lorazepam 0.5 mg 07/25/20 21:22 07/26/20 09:25 Lorazepam 2 Mg/Ml Vial SLOW IVP 0.5 mg Q6H PRN Administration Anxiety/Agitation Methylprednisolone Sodium Succinate 60 mg 07/25/20 22:00 07/26/20 14:41 Methylprednisolone Sod Succ 40 Mg Vial IVP 60 mg Q8HR SAMUEL Administration Metoprolol Tartrate 25 mg 07/25/20 21:00 07/26/20 13:14 Metoprolol Tartrate 25 Mg Tab PO Not Given BID SAMUEL Mometasone Furoate/Formoterol Fumar 2 puff 07/26/20 18:30 07/26/20 18:33 Mometasone 200 Mcg/Formoterol 5 Mcg 120 Puff Inhaler INH 2 puff BID-RT SAMUEL Administration Polyethylene Glycol 17 gm 07/26/20 09:00 07/26/20 08:55 Polyethylene Glycol 3350 17 Gm Packet PO Not Given DAILY SAMUEL Senna 1 tab 07/26/20 01:24 07/26/20 09:07 Senokot 8.6 Mg Tab PO 1 tab DAILYPRN PRN Administration Constipation Sodium Chloride 10 ml 07/26/20 09:00 07/26/20 09:10 Flush - Normal Saline 10 Ml Syringe IVF 10 ml Q12HR SAMUEL Administration - Exam Neck: negative: supple, symmetric, no JVD, no thyromegaly, no lymphadenopathy, no carotid bruit, JVD Respiratory: wheezes Gastrointestinal: negative: soft, non-tender, non-distended, normal bowel sounds, no palpable masses, no hepatomegaly, no splenomegaly, no bruit, no guarding, no rigidity, tender to palpation, distended, diminished bowl sounds, voluntary guarding Hosp A/P (1) COPD exacerbation Code(s): J44.1 - CHRONIC OBSTRUCTIVE PULMONARY DISEASE W (ACUTE) EXACERBATION Status: Acute (2) Diabetes mellitus, type II Status: Chronic Qualifiers: Diabetes mellitus termite helper insulin use: without termite helper use Diabetes mellitus complication status: without complication Qualified Code(s): E11.9 - Type 2 diabetes mellitus without complications (3) Hypertension Code(s): I10 - ESSENTIAL (PRIMARY) HYPERTENSION Status: Chronic Qualifiers: Hypertension type: essential hypertension Qualified Code(s): I10 - Essential (primary) hypertension (4) Obesity (BMI 30-39.9) Code(s): E66.9 - OBESITY, UNSPECIFIED Status: Chronic (5) LORRIE (acute kidney injury) Code(s): N17.9 - ACUTE KIDNEY FAILURE, UNSPECIFIED Status: Acute (6) Lactic acidosis Code(s): E87.2 - ACIDOSIS Status: Acute - Plan Patient short of breath. We will get an ABG and put patient on BiPAP. We will do continuous neb. Patient received continuous neb and also steroids. She also received a dose of Lasix. pulmonology has been consulted. RT at bedside.
[2020-07-26] MEDS: Acetaminophen 325 MG TAB PO PRN (19:57)
[2020-07-26] MEDS: Doxycycline 100 MG CAP PO SCH (20:03)
[2020-07-26] MEDS ORDERED: ALPRAZolam 0.5 MG TAB PO SCH (20:30)
[2020-07-27] MEDS: methylPREDNISolone Sod Succ 40 MG VIAL IVP SCH (05:56)
[2020-07-27] MEDS: HumaLOG 300 UNITS/3 ML VIAL SC PRN ×2 (06:07→11:41)
[2020-07-27] MEDS: Acetaminophen 325 MG TAB PO PRN ×3 (06:10→20:49)
--- NOTE | 2020-07-27 06:19 | CON ---
DATE OF CONSULTATION: HISTORY OF PRESENT ILLNESS: The patient is a 60-year-old morbidly obese female from [place] who was admitted with increased shortness of breath and cough secondary to chronic lung disease. She has longstanding history of COPD with numerous admissions in the hospital. She has seen Dr. Mckeon in our office in the past in 2018. She says she has severe limitation to activity and can barely walk 50 feet without getting markedly short of breath. She is not smoking. Denies any fever or chills. She is on low-flow O2 at home at 3 L. In the ER, her saturations were 99% on oxygen. Blood pressure was 126/52, pulse 77, respiratory rate 22. PAST MEDICAL HISTORY: Extensive past medical history. COPD, congestive heart failure, peripheral vascular disease. PAST SURGICAL HISTORY: Laparotomy, bowel perforation, appendectomy, tubal ligation, cervical fusion. SOCIAL HISTORY: Drinks occasionally. Tobacco, quit smoking 2 years ago. ALLERGIES: SULFA. HOME MEDICINE: 1. Metformin 500. 2. Laxatives. 3. Lopressor 25 b.i.d. 4. Zestril 2.5. 5. DuoNeb. 6. Advair 115/21. 7. Pepcid. 8. Albuterol inhaler. She has now been started on: 1. Zithromax. 2. Steroids. 3. Dulera neb treatments. PHYSICAL EXAMINATION: GENERAL: She appears to be in no acute distress. VITAL SIGNS: Her temperature 98, pulse 102, respiratory rate 14, saturations are 99% on 3 L, blood pressure 140/63. CHEST: No wheezing. No crackles. CARDIAC: Normal S1 and S2. No gallops. ABDOMEN: No masses. LABORATORY DATA: Unremarkable. PO2 is 145, pCO2 of 36. Apparently on BiPAP. Creatinine 1.23. ASSESSMENT: Chronic obstructive pulmonary disease exacerbation, bronchitis, former smoker, severe deconditioning, major anxiety. PLAN: Continue present treatment O2. Neb treatments. Supportive care. We will notify Dr. Mckeon. It is possible she may benefit from noninvasive ventilation at nighttime. Job ID: [id number]
[2020-07-27] MEDS: Mometasone 200 MCG/Formoterol 5 MCG 120 PUFF INHALER INH SCH ×2 (07:18→18:48)
[2020-07-27] MEDS: Heparin 5,000 UNITS/ML VIAL SC SCH ×2 (08:56→20:49)
[2020-07-27] MEDS: Lorazepam 2 MG/ML VIAL SLOW IVP PRN ×2 (08:56→20:56)
[2020-07-27] MEDS: Famotidine 20 MG TAB PO SCH ×2 (08:57→20:47)
[2020-07-27] MEDS: Senokot 8.6 MG TAB PO PRN (08:57)
[2020-07-27] MEDS: Doxycycline 100 MG CAP PO SCH ×2 (08:57→20:46)
[2020-07-27] MEDS: Furosemide 20 MG/2 ML VIAL SLOW IVP SCH (08:57)
[2020-07-27] MEDS: Metoprolol Tartrate 25 MG TAB PO SCH ×2 (08:57→20:49)
[2020-07-27] MEDS: Polyethylene Glycol 3350 17 GM Packet PO SCH (08:57)
--- NOTE | 2020-07-27 12:38 | PRG ---
DATE OF SERVICE: SUBJECTIVE: This morning, she is much better, less short of breath, less cough, off the BiPAP. OBJECTIVE: VITAL SIGNS: Sats are 97% on 2 L, respiratory rate 20, temperature 98, pulse 97, blood pressure 123/53. CHEST: No wheezing. No crackles. CARDIAC: Normal S1, S2. No gallops. ASSESSMENT AND PLAN: Chronic obstructive pulmonary disease exacerbation and bronchitis. Switch over to oral prednisone, oral antibiotics. Hopefully home in the next several days. Job ID: [id number]
--- NOTE | 2020-07-27 14:10 | PDOC.HOSPP ---
- Subjective Encounter Date: 07/27/20 Encounter Time: 14:08 Subjective: Ms. Werner was seen today in follow-up of COPD exacerbation> She says she is breathing a little better. Her oxygen saturations will drop a bit with exertion. She denies any chest pain. - Objective Vital Signs & Weight: Vital Signs (12 hours) Temp Pulse Resp BP Pulse Ox 07/27/20 11:43 98.0 F 75 18 141/65 H 94 L 07/27/20 11:12 98 20 97 07/27/20 08:00 97.9 F 94 16 123/53 L 94 L 07/27/20 07:21 90 L 07/27/20 07:19 96 20 90 L 07/27/20 07:18 86 20 90 L 07/27/20 04:00 98.3 F 67 12 113/54 L 98 Weight Weight 177 lb 6.4 oz I&O: 07/26/20 07/27/20 07/28/20 06:59 06:59 06:59 Intake Total 380 633 Output Total 1826 Balance 380 -1192 Result Diagrams: 07/26/20 04:05 07/26/20 04:05 Additional Labs: Accuchecks 07/27/20 07/27/20 07/26/20 10:37 05:43 20:15 POC Glucose 226 H 198 H 282 H 07/26/20 16:41 POC Glucose 195 H Hospitalist ROS - Medication Medications: Active Medications Generic Name Dose Route Start Last Admin Trade Name Freq PRN Reason Stop Dose Admin Acetaminophen 650 mg 07/25/20 20:32 07/27/20 11:40 Acetaminophen 325 Mg Tab PO 650 mg Q4H PRN Administration Headache/Fever/Mild Pain (1-3) Hydrocodone Bitart/Acetaminophen 1 tab 07/25/20 20:32 07/26/20 11:45 Hydrocodone/Acetaminophen 5/325 Mg Tablet PO 1 tab Q4H PRN Administration Moderate Pain (4-6) Albuterol/Ipratropium 3 ml 07/25/20 20:28 07/26/20 00:32 Ipratropium/Albuterol Sulfate 3 Ml Neb NEB 3 ml Q2H PRN Administration SOB &/or Wheezing Albuterol/Ipratropium 3 ml 07/26/20 07:00 07/27/20 11:12 Ipratropium/Albuterol Sulfate 3 Ml Neb NEB 3 ml [id number] SAMUEL Administration Doxycycline Hyclate 100 mg 07/26/20 21:00 07/27/20 08:57 Doxycycline 100 Mg Cap PO 08/02/20 21:01 100 mg BID SAMUEL Administration Famotidine 20 mg 07/25/20 21:00 07/27/20 08:57 Famotidine 20 Mg Tab PO 20 mg BID SAMUEL Administration Heparin Sodium (Porcine) 5,000 units 07/25/20 21:00 07/27/20 08:56 Heparin 5,000 Units/Ml Vial SC 5,000 units BID SAMUEL Administration Insulin Human Lispro 0 units 07/25/20 21:20 07/27/20 11:41 Humalog 300 Units/3 Ml Vial SC 4 unit .MODERATE SLIDING SC PRN Administration Moderate Correctional Scale Insulin Human Lispro 0 units 07/26/20 20:25 07/26/20 22:01 Humalog 300 Units/3 Ml Vial SC 3 units .BEDTIME SLIDING SC PRN Administration Bedtime Correctional Scale Lorazepam 0.5 mg 07/25/20 21:22 07/27/20 08:56 Lorazepam 2 Mg/Ml Vial SLOW IVP 0.5 mg Q6H PRN Administration Anxiety/Agitation Metoprolol Tartrate 25 mg 07/25/20 21:00 07/27/20 08:57 Metoprolol Tartrate 25 Mg Tab PO 25 mg BID SAMUEL Administration Mometasone Furoate/Formoterol Fumar 2 puff 07/26/20 18:30 07/27/20 07:18 Mometasone 200 Mcg/Formoterol 5 Mcg 120 Puff Inhaler INH 2 puff BID-RT SAMUEL Administration Polyethylene Glycol 17 gm 07/26/20 09:00 07/27/20 08:57 Polyethylene Glycol 3350 17 Gm Packet PO Not Given DAILY SAMUEL Senna 1 tab 07/26/20 01:24 07/27/20 08:57 Senokot 8.6 Mg Tab PO 1 tab DAILYPRN PRN Administration Constipation Sodium Chloride 10 ml 07/26/20 09:00 07/27/20 08:58 Flush - Normal Saline 10 Ml Syringe IVF 10 ml Q12HR SAMUEL Administration Sodium Chloride 10 ml 07/26/20 07:00 07/27/20 05:57 Flush - Normal Saline 10 Ml Syringe IVF 10 ml PRN PRN Administration Saline Flush - Exam General Appearance: NAD Eye: PERRL, anicteric sclera ENT: normocephalic atraumatic Heart: RRR, no murmur, no gallops, no rubs, normal peripheral pulses Respiratory: CTAB (+ very faint rales at the bases), no wheezes, no ronchi Gastrointestinal: soft, non-tender, non-distended, normal bowel sounds, no palpable masses, no hepatomegaly Extremities: no cyanosis, no edema Hosp A/P (1) Acute on chronic respiratory failure with hypoxemia Code(s): J96.21 - ACUTE AND CHRONIC RESPIRATORY FAILURE WITH HYPOXIA Status: Acute (2) COPD exacerbation Code(s): J44.1 - CHRONIC OBSTRUCTIVE PULMONARY DISEASE W (ACUTE) EXACERBATION Status: Acute (3) Diabetes mellitus, type II Status: Chronic Qualifiers: Diabetes mellitus superintendent container terminal insulin use: without superintendent container terminal use Diabetes mellitus complication status: without complication Qualified Code(s): E11.9 - Type 2 diabetes mellitus without complications (4) Hypertension Code(s): I10 - ESSENTIAL (PRIMARY) HYPERTENSION Status: Chronic Qualifiers: Hypertension type: essential hypertension Qualified Code(s): I10 - Essential (primary) hypertension (5) Obesity (BMI 30-39.9) Code(s): E66.9 - OBESITY, UNSPECIFIED Status: Chronic - Plan * Acute on chronic respiratory failure due to COPD exacerbation- improving * She has been transitioned over to oral antibiotics as well as steroids * HTN- blood pressure is stable * DM- blood glucose is a bit elevated, but anticipate this will improve with tappering of steroids * MADISON- continue BiPAP when sleeping
[2020-07-27 17:02] LABS: SARS-CoV-2 MS2 Positive; SARS-CoV-2 N Gene Negative; SARS-CoV-2 S Gene Negative; SARS-CoV-2 by NAA Not Detected (NotDetected); SARS-CoV-2 orf1ab Negative
[2020-07-27] MEDS: predniSONE 20 MG TAB PO SCH (20:48)
[2020-07-27] MEDS ORDERED: predniSONE 20 MG TAB PO SCH (21:00)
[2020-07-27] MEDS ORDERED: Milk Of Magnesia 30 ML UDCUP PO PRN (21:18)
[2020-07-27] MEDS: Loratadine 10 MG TAB PO PRN (21:29)
[2020-07-28 04:10] LABS: #Eosinphils 0.1 thou/uL (0.0-0.7); #Lymphocytes 1.5 thou/uL (1.20-3.40); #Monocytes 0.7 thou/uL (0.11-0.59); #Neutrophils 9.8 thou/uL (1.40-6.50); %Basophils 0.1 % (0.0-1.0); %Eosinophils 0.4 % (0.0-10.0); %Lymphocytes 12.7 % (21.0-51.0); %Monocytes 6.1 % (0.0-10.0); %Neutrophils 80.8 % (42.0-75.0); Hemoglobin 12.2 g/dL (12.0-16.0); Mean Corpuscular HGB CONC 31.6 g/dL (32.0-36.0); Mean Corpuscular Hemoglobin 29.1 pg (27.0-31.0); Mean Corpuscular Volume 92.2 fL (78.0-98.0); Mean Platelet Volume 7.2 fL (7.4-10.4); Platelet Count 305 thou/uL (130-400); RBC Distribution Width 12.2 % (11.5-14.5); Red Blood Cell (RBC) Count 4.19 mill/uL (4.20-5.40); White Blood Cell (WBC) Count 12.1 thou/uL (4.8-10.8)
[2020-07-28 04:34] LABS: Anion Gap 14 mmol/L (10-20); BUN (Urea Nitrogen) 31 mg/dL (9.8-20.1); Calc. Creatinine Clearance 57 mL/min (70-130); Carbon Dioxide 28 mmol/L (22-29); Chloride 99 mmol/L (98-107); Estimated GFR-MDRD 40; Glucose 238 mg/dL (70-105); Potassium 5.2 mmol/L (3.5-5.1); Sodium 136 mmol/L (136-145)
[2020-07-28] MEDS: HumaLOG 300 UNITS/3 ML VIAL SC PRN ×2 (06:10→17:15)
[2020-07-28] MEDS: Mometasone 200 MCG/Formoterol 5 MCG 120 PUFF INHALER INH SCH ×2 (06:42→20:37)
[2020-07-28] MEDS: ALPRAZolam 0.25 MG TAB PO SCH ×2 (08:47→20:01)
[2020-07-28] MEDS: Doxycycline 100 MG CAP PO SCH ×2 (08:48→20:00)
[2020-07-28] MEDS: Famotidine 20 MG TAB PO SCH ×2 (08:48→20:01)
[2020-07-28] MEDS: Heparin 5,000 UNITS/ML VIAL SC SCH ×2 (08:49→20:00)
[2020-07-28] MEDS: Metoprolol Tartrate 25 MG TAB PO SCH ×2 (08:50→20:00)
[2020-07-28] MEDS: predniSONE 20 MG TAB PO SCH ×2 (08:51→20:00)
[2020-07-28] MEDS: Polyethylene Glycol 3350 17 GM Packet PO SCH (09:09)
--- NOTE | 2020-07-28 12:33 | PRG ---
DATE OF SERVICE: 07/28/2020 SUBJECTIVE: This morning, she says she is still short of breath when she exerts herself. OBJECTIVE: VITAL SIGNS: Her saturations are 98% on 2 L, breathing 16, pulse 70, temperature 97, blood pressure 125/63. GENERAL: She is sitting in the side of the bed. CHEST: No wheezing. No crackles. CARDIAC: Normal S1, S2. ABDOMEN: No masses. LABORATORY DATA: Creatinine 1.35. White count is normal at 12,000. ASSESSMENT: Chronic obstructive pulmonary disease exacerbation, bronchitis, ongoing tobacco abuse. PLAN: Continue neb treatments, steroids, empiric antibiotics. Home in the next several days. Job ID: [id number]
--- NOTE | 2020-07-28 12:45 | PDOC.HOSPP ---
- Subjective Encounter Date: 07/28/20 Encounter Time: 12:43 Subjective: Ms. Werner was seen today in follow-up of COPD exacerbation. She is feeling slightly better today. She continues to feel like something is getting stuck in her throat when she coughs. Shealso becomes extremely short of breath with minimal exertion. - Objective Vital Signs & Weight: Vital Signs (12 hours) Temp Pulse Resp BP Pulse Ox 07/28/20 10:24 70 16 98 07/28/20 08:00 96 07/28/20 07:58 97.5 F L 72 16 125/63 96 07/28/20 06:43 69 16 95 07/28/20 06:42 69 16 95 07/28/20 05:02 98.4 F 74 22 H 123/58 L 98 Weight Weight 174 lb 8 oz I&O: 07/27/20 07/28/20 07/29/20 06:59 06:59 06:59 Intake Total 633 1400 Output Total 1825 1600 Balance -1192 -200 Result Diagrams: 07/28/20 03:54 07/28/20 03:54 Additional Labs: Accuchecks 07/28/20 07/28/20 07/27/20 10:54 05:35 20:50 POC Glucose 149 H 220 H 173 H 07/27/20 17:15 POC Glucose 179 H Hospitalist ROS - Medication Medications: Active Medications Generic Name Dose Route Start Last Admin Trade Name Freq PRN Reason Stop Dose Admin Acetaminophen 650 mg 07/25/20 20:32 07/27/20 20:49 Acetaminophen 325 Mg Tab PO 650 mg Q4H PRN Administration Headache/Fever/Mild Pain (1-3) Hydrocodone Bitart/Acetaminophen 1 tab 07/25/20 20:32 07/26/20 11:45 Hydrocodone/Acetaminophen 5/325 Mg Tablet PO 1 tab Q4H PRN Administration Moderate Pain (4-6) Albuterol/Ipratropium 3 ml 07/25/20 20:28 07/28/20 00:34 Ipratropium/Albuterol Sulfate 3 Ml Neb NEB 3 ml Q2H PRN Administration SOB &/or Wheezing Albuterol/Ipratropium 3 ml 07/26/20 07:00 07/28/20 10:24 Ipratropium/Albuterol Sulfate 3 Ml Neb NEB 3 ml [id number] SAMUEL Administration Alprazolam 0.25 mg 07/28/20 09:00 07/28/20 08:47 Alprazolam 0.25 Mg Tab PO 0.25 mg BID SAMUEL Administration Doxycycline Hyclate 100 mg 07/26/20 21:00 07/28/20 08:48 Doxycycline 100 Mg Cap PO 08/02/20 21:01 100 mg BID SAMUEL Administration Famotidine 20 mg 07/25/20 21:00 07/28/20 08:48 Famotidine 20 Mg Tab PO 20 mg BID SAMUEL Administration Heparin Sodium (Porcine) 5,000 units 07/25/20 21:00 07/28/20 08:49 Heparin 5,000 Units/Ml Vial SC 5,000 units BID SAMUEL Administration Insulin Human Lispro 0 units 07/25/20 21:20 07/28/20 06:10 Humalog 300 Units/3 Ml Vial SC 4 unit .MODERATE SLIDING SC PRN Administration Moderate Correctional Scale Insulin Human Lispro 0 units 07/26/20 20:25 07/26/20 22:01 Humalog 300 Units/3 Ml Vial SC 3 units .BEDTIME SLIDING SC PRN Administration Bedtime Correctional Scale Loratadine 10 mg 07/27/20 21:19 07/27/20 21:29 Loratadine 10 Mg Tab PO 10 mg DAILYPRN PRN Administration Allergies Lorazepam 0.5 mg 07/25/20 21:22 07/27/20 20:56 Lorazepam 2 Mg/Ml Vial SLOW IVP 0.5 mg Q6H PRN Administration Anxiety/Agitation Magnesium Hydroxide 30 ml 07/27/20 21:18 07/27/20 21:29 Milk Of Magnesia 30 Ml Udcup PO 30 ml DAILYPRN PRN Administration Constipation Metoprolol Tartrate 25 mg 07/25/20 21:00 07/28/20 08:50 Metoprolol Tartrate 25 Mg Tab PO 25 mg BID SAMUEL Administration Mometasone Furoate/Formoterol Fumar 2 puff 07/26/20 18:30 07/28/20 06:42 Mometasone 200 Mcg/Formoterol 5 Mcg 120 Puff Inhaler INH 2 puff BID-RT SAMUEL Administration Polyethylene Glycol 17 gm 07/26/20 09:00 07/28/20 09:09 Polyethylene Glycol 3350 17 Gm Packet PO Not Given DAILY SAMUEL Prednisone 40 mg 07/27/20 21:00 07/28/20 08:51 Prednisone 20 Mg Tab PO 40 mg BID SAMUEL Administration Senna 1 tab 07/26/20 01:24 07/27/20 08:57 Senokot 8.6 Mg Tab PO 1 tab DAILYPRN PRN Administration Constipation Sodium Chloride 10 ml 07/26/20 09:00 07/28/20 09:09 Flush - Normal Saline 10 Ml Syringe IVF Not Given Q12HR SAMUEL Sodium Chloride 10 ml 07/26/20 07:00 07/27/20 05:57 Flush - Normal Saline 10 Ml Syringe IVF 10 ml PRN PRN Administration Saline Flush - Exam Eye: PERRL, anicteric sclera Heart: RRR, no murmur, no gallops, no rubs, normal peripheral pulses Respiratory: no rales, no ronchi, wheezes (+ faint wheezing, but sounds a bit tight.) Gastrointestinal: soft, non-tender, non-distended, normal bowel sounds, no palpable masses, no hepatomegaly Extremities: no cyanosis, 1+ LE edema Hosp A/P (1) Acute on chronic respiratory failure with hypoxemia Code(s): J96.21 - ACUTE AND CHRONIC RESPIRATORY FAILURE WITH HYPOXIA Status: A cute (2) COPD exacerbation Code(s): J44.1 - CHRONIC OBSTRUCTIVE PULMONARY DISEASE W (ACUTE) EXACERBATION Status: Acute (3) Diabetes mellitus, type II Status: Chronic Qualifiers: Diabetes mellitus director long term care insulin use: without director long term care use Diabetes mellitus complication status: without complication Qualified Code(s): E11.9 - Type 2 diabetes mellitus without complications (4) Hypertension Code(s): I10 - ESSENTIAL (PRIMARY) HYPERTENSION Status: Chronic Qualifiers: Hypertension type: essential hypertension Qualified Code(s): I10 - Essential (primary) hypertension (5) Obesity (BMI 30-39.9) Code(s): E66.9 - OBESITY, UNSPECIFIED Status: Chronic - Plan * Acute on chronic respiratory failure due to COPD exacerbation- slowly improving * Continue Prednisone and Doxycyline * HTN- blood pressure is stable * DM- blood glucose is a bit better * MADISON- continue BiPAP when sleeping * Hopefully home tomorrow
[2020-07-28] MEDS: Loratadine 10 MG TAB PO PRN (15:39)
--- NOTE | 2020-07-28 22:35 | RAD ---
XR Abdomen 1 View/KUB History: Abdominal pain Comparison: CT examination 2018 Findings: Likely left lower quadrant ostomy. No dilated air-filled loops of large or small bowel. Cheryl luation for free air is limited without an upright exam. Mild reverse S-shaped scoliosis. No abnormal calcifications projecting over the renal shadows. Impression: No acute intra-abdominal abnormality. No evidence for bowel obstruction.
[2020-07-28] MEDS ORDERED: Senokot 8.6 MG TAB PO PRN (23:41)
[2020-07-29] MEDS: Acetaminophen 325 MG TAB PO PRN ×2 (01:16→20:13)
[2020-07-29] MEDS: HumaLOG 300 UNITS/3 ML VIAL SC PRN ×4 (06:07→20:18)
[2020-07-29] MEDS: Mometasone 200 MCG/Formoterol 5 MCG 120 PUFF INHALER INH SCH ×2 (06:47→18:47)
[2020-07-29] MEDS: Famotidine 20 MG TAB PO SCH ×2 (10:11→20:14)
[2020-07-29] MEDS: Polyethylene Glycol 3350 17 GM Packet PO SCH (10:12)
[2020-07-29] MEDS: Metoprolol Tartrate 25 MG TAB PO SCH ×2 (10:12→20:15)
[2020-07-29] MEDS: predniSONE 20 MG TAB PO SCH ×2 (10:12→20:15)
[2020-07-29] MEDS: Doxycycline 100 MG CAP PO SCH ×2 (10:12→20:15)
[2020-07-29] MEDS: ALPRAZolam 0.25 MG TAB PO SCH ×2 (10:12→20:15)
[2020-07-29] MEDS: Heparin 5,000 UNITS/ML VIAL SC SCH ×2 (10:12→20:14)
--- NOTE | 2020-07-29 11:18 | PDOC.HOSPP ---
- Subjective Encounter Date: 07/29/20 Encounter Time: 11:16 Subjective: Ms. Werner was seen today in follow-up of COPD exacerbation. She says she is still having trouble with air exchange. - Objective Vital Signs & Weight: Vital Signs (12 hours) Temp Pulse Resp BP BP Pulse Ox 07/29/20 10:57 71 22 H 100 07/29/20 07:35 97.6 F 74 17 129/78 100 07/29/20 06:45 65 18 100 07/29/20 04:00 97.4 F L 73 18 140/67 100 07/28/20 23:34 140/65 Weight Weight 174 lb 8 oz I&O: 07/28/20 07/29/20 07/30/20 06:59 06:59 06:59 Intake Total 1400 900 Output Total 1600 1550 Balance -200 -650 Result Diagrams: 07/28/20 03:54 07/28/20 03:54 Additional Labs: Accuchecks 07/29/20 07/29/20 07/28/20 11:13 06:04 20:04 POC Glucose 186 H 221 H 101 H Hospitalist ROS - Medication Medications: Active Medications Generic Name Dose Route Start Last Admin Trade Name Freq PRN Reason Stop Dose Admin Acetaminophen 650 mg 07/25/20 20:32 07/29/20 01:16 Acetaminophen 325 Mg Tab PO 650 mg Q4H PRN Administration Headache/Fever/Mild Pain (1-3) Hydrocodone Bitart/Acetaminophen 1 tab 07/25/20 20:32 07/26/20 11:45 Hydrocodone/Acetaminophen 5/325 Mg Tablet PO 1 tab Q4H PRN Administration Moderate Pain (4-6) Albuterol/Ipratropium 3 ml 07/25/20 20:28 07/28/20 00:34 Ipratropium/Albuterol Sulfate 3 Ml Neb NEB 3 ml Q2H PRN Administration SOB &/or Wheezing Albuterol/Ipratropium 3 ml 07/26/20 07:00 07/29/20 10:57 Ipratropium/Albuterol Sulfate 3 Ml Neb NEB 3 ml [id number] SAMUEL Administration Alprazolam 0.25 mg 07/28/20 09:00 07/29/20 10:12 Alprazolam 0.25 Mg Tab PO 0.25 mg BID SAMUEL Administration Doxycycline Hyclate 100 mg 07/26/20 21:00 07/29/20 10:12 Doxycycline 100 Mg Cap PO 08/02/20 21:01 100 mg BID SAMUEL Administration Famotidine 20 mg 07/25/20 21:00 07/29/20 10:11 Famotidine 20 Mg Tab PO 20 mg BID SAMUEL Administration Heparin Sodium (Porcine) 5,000 units 07/25/20 21:00 07/29/20 10:12 Heparin 5,000 Units/Ml Vial SC 5,000 units BID SAMUEL Administration Insulin Human Lispro 0 units 07/25/20 21:20 07/29/20 06:07 Humalog 300 Units/3 Ml Vial SC 4 unit .MODERATE SLIDING SC PRN Administration Moderate Correctional Scale Insulin Human Lispro 0 units 07/26/20 20:25 07/26/20 22:01 Humalog 300 Units/3 Ml Vial SC 3 units .BEDTIME SLIDING SC PRN Administration Bedtime Correctional Scale Loratadine 10 mg 07/27/20 21:19 07/28/20 15:39 Loratadine 10 Mg Tab PO 10 mg DAILYPRN PRN Administration Allergies Lorazepam 0.5 mg 07/25/20 21:22 07/27/20 20:56 Lorazepam 2 Mg/Ml Vial SLOW IVP 0.5 mg Q6H PRN Administration Anxiety/Agitation Magnesium Hydroxide 30 ml 07/27/20 21:18 07/27/20 21:29 Milk Of Magnesia 30 Ml Udcup PO 30 ml DAILYPRN PRN Administration Constipation Metoprolol Tartrate 25 mg 07/25/20 21:00 07/29/20 10:12 Metoprolol Tartrate 25 Mg Tab PO 25 mg BID SAMUEL Administration Mometasone Furoate/Formoterol Fumar 2 puff 07/26/20 18:30 07/29/20 06:47 Mometasone 200 Mcg/Formoterol 5 Mcg 120 Puff Inhaler INH 2 puff BID-RT SAMUEL Administration Polyethylene Glycol 17 gm 07/26/20 09:00 07/29/20 10:12 Polyethylene Glycol 3350 17 Gm Packet PO Not Given DAILY SAMUEL Prednisone 40 mg 07/27/20 21:00 07/29/20 10:12 Prednisone 20 Mg Tab PO 40 mg BID SAMUEL Administration Senna 1 tab 07/26/20 01:24 10/10/20 08:57 Senokot 8.6 Mg Tab PO 1 tab DAILYPRN PRN Administration Constipation Sodium Chloride 10 ml 07/26/20 09:00 07/29/20 10:13 Flush - Normal Saline 10 Ml Syringe IVF Not Given Q12HR SAMUEL Sodium Chloride 10 ml 07/26/20 07:00 07/27/20 05:57 Flush - Normal Saline 10 Ml Syringe IVF 10 ml PRN PRN Administration Saline Flush - Exam Eye: PERRL, anicteric sclera Heart: RRR, no murmur, no gallops, no rubs, normal peripheral pulses Respiratory: no rales, no ronchi, wheezes (+ wheezing bilaterally, with occasional rhonchi) Gastrointestinal: soft, non-tender, non-distended, normal bowel sounds, no palpable masses, no hepatomegaly Extremities: no cyanosis, 1+ LE edema Hosp A/P (1) Acute on chronic respiratory failure with hypoxemia Code(s): J96.21 - ACUTE AND CHRONIC RESPIRATORY FAILURE WITH HYPOXIA Status: Acute (2) COPD exacerbation Code(s): J44.1 - CHRONIC OBSTRUCTIVE PULMONARY DISEASE W (ACUTE) EXACERBATION Status: Acute (3) Diabetes mellitus, type II Status: Chronic Qualifiers: Diabetes mellitus jail insulin use: without jail use Diabetes mellitus complication status: without complication Qualified Code(s): E11.9 - Type 2 diabetes mellitus without complications (4) Hypertension Code(s): I10 - ESSENTIAL (PRIMARY) HYPERTENSION Status: Chronic Qualifiers: Hypertension type: essential hypertension Qualified Code(s): I10 - Essential (primary) hypertension (5) Obesity (BMI 30-39.9) Code(s): E66.9 - OBESITY, UNSPECIFIED Status: Chronic - Plan * Acute on chronic respiratory failure due to COPD exacerbation- slowly improving * Continue Prednisone and Doxycyline * Will add Mucinex * Await further recommendations from PCCM * HTN- blood pressure is stable * DM- blood glucose is a bit better * MADISON- continue BiPAP when sleeping * Hopefully home tomorrow
[2020-07-29 12:45] LABS: Band 2 % (5-11); Hemoglobin 14.2 g/dL (12.0-16.0); Lymphocytes 19 % (21-51); MDiff Complete? YES; Mean Corpuscular HGB CONC 32.2 g/dL (32.0-36.0); Mean Corpuscular Hemoglobin 29.7 pg (27.0-31.0); Mean Corpuscular Volume 92.3 fL (78.0-98.0); Mean Platelet Volume 7.1 fL (7.4-10.4); Metamyelocyte 1 % (0-0); Monocytes 7 % (0-10); Neutrophil 71 % (42-75); Nucleated RBC 1 % (0); Platelet Count 385 thou/uL (130-400); Platelet Morphology Comment Appears Adequate; RBC Distribution Width 12.3 % (11.5-14.5); RBC Morphology Normal; Red Blood Cell (RBC) Count 4.77 mill/uL (4.20-5.40); White Blood Cell (WBC) Count 20.9 thou/uL (4.8-10.8)
[2020-07-29] MEDS: Loratadine 10 MG TAB PO PRN (12:55)
[2020-07-29] MEDS: guaiFENesin ER 600 MG TAB PO SCH ×2 (13:47→20:15)
[2020-07-30 04:45] LABS: Anion Gap 13 mmol/L (10-20); BUN (Urea Nitrogen) 35 mg/dL (9.8-20.1); Calc. Creatinine Clearance 53 mL/min (70-130); Calcium 9.4 mg/dL (7.8-10.44); Carbon Dioxide 27 mmol/L (22-29); Chloride 99 mmol/L (98-107); Estimated GFR-MDRD 38; Glucose 223 mg/dL (70-105); Potassium 4.9 mmol/L (3.5-5.1); Sodium 134 mmol/L (136-145)
[2020-07-30] MEDS: HumaLOG 300 UNITS/3 ML VIAL SC PRN ×3 (06:07→18:08)
[2020-07-30] MEDS: Mometasone 200 MCG/Formoterol 5 MCG 120 PUFF INHALER INH SCH ×2 (07:31→19:10)
[2020-07-30] MEDS: Heparin 5,000 UNITS/ML VIAL SC SCH ×2 (08:31→20:34)
[2020-07-30] MEDS: guaiFENesin ER 600 MG TAB PO SCH ×2 (08:32→20:34)
[2020-07-30] MEDS: Doxycycline 100 MG CAP PO SCH ×2 (08:32→20:34)
[2020-07-30] MEDS: Metoprolol Tartrate 25 MG TAB PO SCH ×2 (08:32→20:35)
[2020-07-30] MEDS: predniSONE 20 MG TAB PO SCH ×2 (08:32→20:35)
[2020-07-30] MEDS: Famotidine 20 MG TAB PO SCH ×2 (08:32→20:34)
[2020-07-30] MEDS: ALPRAZolam 0.25 MG TAB PO SCH ×2 (08:32→20:34)
[2020-07-30] MEDS: Magnesium Oxide 400 MG TAB PO SCH ×2 (08:41→20:34)
[2020-07-30] MEDS: Polyethylene Glycol 3350 17 GM Packet PO SCH (08:42)
[2020-07-30 11:06] LABS: #Eosinphils 0.1 thou/uL (0.0-0.7); #Neutrophils 12.2 thou/uL (1.40-6.50); %Basophils 0.3 % (0.0-1.0); %Eosinophils 0.7 % (0.0-10.0); %Lymphocytes 12.9 % (21.0-51.0); %Monocytes 6.4 % (0.0-10.0); %Neutrophils 79.8 % (42.0-75.0); Hemoglobin 13.4 g/dL (12.0-16.0); Mean Corpuscular HGB CONC 32.2 g/dL (32.0-36.0); Mean Corpuscular Hemoglobin 29.9 pg (27.0-31.0); Mean Corpuscular Volume 92.6 fL (78.0-98.0); Mean Platelet Volume 7.4 fL (7.4-10.4); Platelet Count 327 thou/uL (130-400); RBC Distribution Width 12.3 % (11.5-14.5); White Blood Cell (WBC) Count 15.2 thou/uL (4.8-10.8)
--- NOTE | 2020-07-30 11:31 | PDOC.HOSPP ---
- Subjective Encounter Date: 07/30/20 Encounter Time: 11:28 Subjective: Ms. Werner was seen today in follow-up of COPD exacerbation. she says she actually feels a littlebetter today. She says she was able to cough up some of the phlem, and as a result is breathing better. - Objective Vital Signs & Weight: Vital Signs (12 hours) Temp Pulse Resp BP Pulse Ox 07/30/20 10:43 86 20 97 07/30/20 07:29 74 18 95 07/30/20 07:15 98.2 F 64 17 141/67 H 100 07/30/20 03:36 96.8 F L 66 18 139/77 100 Weight Weight 173 lb 8 oz I&O: 07/29/20 07/30/20 07/31/20 06:59 06:59 06:59 Intake Total 900 720 Output Total 1550 1700 Balance -650 980 Result Diagrams: 07/30/20 10:42 07/30/20 04:11 Additional Labs: Accuchecks 07/30/20 07/30/20 07/29/20 11:02 06:01 20:09 POC Glucose 205 H 224 H 311 H 07/29/20 07/28/20 16:31 17:14 POC Glucose 190 H 293 H Hospitalist ROS - Medication Medications: Active Medications Generic Name Dose Route Start Last Admin Trade Name Freq PRN Reason Stop Dose Admin Acetaminophen 650 mg 07/25/20 20:32 07/29/20 20:13 Acetaminophen 325 Mg Tab PO 650 mg Q4H PRN Administration Headache/Fever/Mild Pain (1-3) Hydrocodone Bitart/Acetaminophen 1 tab 07/25/20 20:32 07/26/20 11:45 Hydrocodone/Acetaminophen 5/325 Mg Tablet PO 1 tab Q4H PRN Administration Moderate Pain (4-6) Albuterol/Ipratropium 3 ml 07/25/20 20:28 07/28/20 00:34 Ipratropium/Albuterol Sulfate 3 Ml Neb NEB 3 ml Q2H PRN Administration SOB &/or Wheezing Albuterol/Ipratropium 3 ml 07/26/20 07:00 07/30/20 10:43 Ipratropium/Albuterol Sulfate 3 Ml Neb NEB 3 ml [id number] SAMUEL Administration Alprazolam 0.25 mg 07/28/20 09:00 07/30/20 08:32 Alprazolam 0.25 Mg Tab PO 0.25 mg BID SAMUEL Administration Doxycycline Hyclate 100 mg 07/26/20 21:00 07/30/20 08:32 Doxycycline 100 Mg Cap PO 08/02/20 21:01 100 mg BID SAMUEL Administration Famotidine 20 mg 07/25/20 21:00 07/30/20 08:32 Famotidine 20 Mg Tab PO 20 mg BID SAMUEL Administration Guaifenesin 600 mg 07/29/20 11:17 07/30/20 08:32 Guaifenesin Er 600 Mg Tab PO 600 mg Q12HR SAMUEL Administration Heparin Sodium (Porcine) 5,000 units 07/25/20 21:00 07/30/20 08:31 Heparin 5,000 Units/Ml Vial SC 5,000 units BID SAMUEL Administration Insulin Human Lispro 0 units 07/25/20 21:20 07/30/20 06:07 Humalog 300 Units/3 Ml Vial SC 4 unit .MODERATE SLIDING SC PRN Administration Moderate Correctional Scale Insulin Human Lispro 0 units 07/26/20 20:25 07/29/20 20:18 Humalog 300 Units/3 Ml Vial SC 4 units .BEDTIME SLIDING SC PRN Administration Bedtime Correctional Scale Loratadine 10 mg 07/27/20 21:19 07/29/20 12:55 Loratadine 10 Mg Tab PO 10 mg DAILYPRN PRN Administration Allergies Lorazepam 0.5 mg 07/25/20 21:22 07/27/20 20:56 Lorazepam 2 Mg/Ml Vial SLOW IVP 0.5 mg Q6H PRN Administration Anxiety/Agitation Magnesium Hydroxide 30 ml 07/27/20 21:18 07/27/20 21:29 Milk Of Magnesia 30 Ml Udcup PO 30 ml DAILYPRN PRN Administration Constipation Magnesium Oxide 400 mg 07/30/20 09:00 07/30/20 08:41 Magnesium Oxide 400 Mg Tab PO 400 mg BID SAMUEL Administration Metoprolol Tartrate 25 mg 07/25/20 21:00 07/30/20 08:32 Metoprolol Tartrate 25 Mg Tab PO 25 mg BID SAMUEL Administration Mometasone Furoate/Formoterol Fumar 2 puff 07/26/20 18:30 07/30/20 07:31 Mometasone 200 Mcg/Formoterol 5 Mcg 120 Puff Inhaler INH 2 puff BID-RT SAMUEL Administration Polyethylene Glycol 17 gm 07/26/20 09:00 07/30/20 08:42 Polyethylene Glycol 3350 17 Gm Packet PO Not Given DAILY SAMUEL Prednisone 40 mg 07/27/20 21:00 07/30/20 08:32 Prednisone 20 Mg Tab PO 40 mg BID SAMUEL Administration Senna 1 tab 07/26/20 01:24 07/27/20 08:57 Senokot 8.6 Mg Tab PO 1 tab DAILYPRN PRN Administration Constipation Sodium Chloride 10 ml 07/26/20 09:00 07/30/20 08:42 Flush - Normal Saline 10 Ml Syringe IVF 10 ml Q12HR SAMUEL Administration Sodium Chloride 10 ml 07/26/20 07:00 07/27/20 05:57 Flush - Normal Saline 10 Ml Syringe IVF 10 ml PRN PRN Administration Saline Flush - Exam General Appearance: NAD Heart: RRR, no murmur, no gallops, no rubs, normal peripheral pulses Respiratory: wheezes (+ expiratoy wheeze) Gastrointestinal: soft, non-tender, non-distended, normal bowel sounds, no palpable masses, no hepatomegaly Extremities: no cyanosis, 1+ LE edema Hosp A/P (1) Acute on chronic respiratory failure with hypoxemia Code(s): J96.21 - ACUTE AND CHRONIC RESPIRATORY FAILURE WITH HYPOXIA Status: Acute (2) COPD exacerbation Code(s): J44.1 - CHRONIC OBSTRUCTIVE PULMONARY DISEASE W (ACUTE) EXACERBATION Status: Acute (3) Diabetes mellitus, type II Status: Chronic Qualifiers: Diabetes mellitus intermediate project manager insulin use: without intermediate project manager use Diabetes mellitus complication status: without complication Qualified Code(s): E11.9 - Type 2 diabetes mellitus without complications (4) Hypertension Code(s): I10 - ESSENTIAL (PRIMARY) HYPERTENSION Status: Chronic Qualifiers: Hypertension type: essential hypertension Qualified Code(s): I10 - Essentia l (primary) hypertension (5) Obesity (BMI 30-39.9) Code(s): E66.9 - OBESITY, UNSPECIFIED Status: Chronic - Plan * Acute on chronic respiratory failure due to COPD exacerbation- slowly improving * Continue Prednisone and Doxycyline,and Mucinex * HTN- blood pressure is stable * DM- blood glucose is a bit better * MADISON- continue BiPAP when sleeping * Need to mobilize- will consult the walking program * Hopefully home in a few days
[2020-07-30] MEDS: Loratadine 10 MG TAB PO PRN (11:49)
[2020-07-30] MEDS: Sodium Chloride 0.9% 1,000 ML IV SCH (14:35)
--- NOTE | 2020-07-30 19:54 | PRG ---
DATE OF SERVICE: 07/30/2020 SUBJECTIVE: Batsheva Werner is in no distress. She is afebrile. OBJECTIVE: VITAL SIGNS: Heart rates in the 90s, respiratory rates in the teens, oximetry is 96 on 2 L. Blood pressure has been stable overnight. LUNGS: Free of wheezes. HEART: Regular rhythm. ABDOMEN: Soft. IMPRESSION: Chronic obstructive pulmonary disease exacerbation with probably a component of asthma based on her history of frequently using steroids for last year. We will continue to follow. She maybe a candidate for discharge within the next day or 2. Job ID: [id number]
[2020-07-30] MEDS: Acetaminophen 325 MG TAB PO PRN (20:35)
[2020-07-31] MEDS: Sodium Chloride 0.9% 1,000 ML IV SCH (01:05)
[2020-07-31 04:50] LABS: #Eosinphils 0.2 thou/uL (0.0-0.7); #Lymphocytes 2.2 thou/uL (1.20-3.40); #Monocytes 0.7 thou/uL (0.11-0.59); #Neutrophils 13.8 thou/uL (1.40-6.50); %Basophils 0.1 % (0.0-1.0); %Eosinophils 1.4 % (0.0-10.0); %Monocytes 4.2 % (0.0-10.0); %Neutrophils 81.3 % (42.0-75.0); Hemoglobin 14.1 g/dL (12.0-16.0); Mean Corpuscular HGB CONC 32.2 g/dL (32.0-36.0); Mean Corpuscular Hemoglobin 29.8 pg (27.0-31.0); Mean Corpuscular Volume 92.6 fL (78.0-98.0); Mean Platelet Volume 7.3 fL (7.4-10.4); Platelet Count 333 thou/uL (130-400); RBC Distribution Width 12.4 % (11.5-14.5); Red Blood Cell (RBC) Count 4.73 mill/uL (4.20-5.40)
[2020-07-31 05:16] LABS: Anion Gap 16 mmol/L (10-20); BUN (Urea Nitrogen) 40 mg/dL (9.8-20.1); Calc. Creatinine Clearance 50 mL/min (70-130); Calcium 9.5 mg/dL (7.8-10.44); Carbon Dioxide 25 mmol/L (22-29); Chloride 97 mmol/L (98-107); Estimated GFR-MDRD 36; Glucose 253 mg/dL (70-105); Potassium 5.2 mmol/L (3.5-5.1); Sodium 133 mmol/L (136-145)
[2020-07-31] MEDS: HumaLOG 300 UNITS/3 ML VIAL SC PRN ×4 (06:30→20:25)
[2020-07-31] MEDS: Mometasone 200 MCG/Formoterol 5 MCG 120 PUFF INHALER INH SCH ×2 (07:34→19:15)
[2020-07-31] MEDS: ALPRAZolam 0.25 MG TAB PO SCH ×2 (08:54→20:26)
[2020-07-31] MEDS: Doxycycline 100 MG CAP PO SCH ×2 (08:54→20:26)
[2020-07-31] MEDS: Famotidine 20 MG TAB PO SCH ×2 (08:54→20:26)
[2020-07-31] MEDS: Heparin 5,000 UNITS/ML VIAL SC SCH ×2 (08:55→20:26)
[2020-07-31] MEDS: guaiFENesin ER 600 MG TAB PO SCH ×2 (08:55→20:27)
[2020-07-31] MEDS: Magnesium Oxide 400 MG TAB PO SCH ×2 (08:55→20:26)
[2020-07-31] MEDS: Metoprolol Tartrate 25 MG TAB PO SCH ×2 (08:56→20:27)
[2020-07-31] MEDS: Polyethylene Glycol 3350 17 GM Packet PO SCH (08:57)
[2020-07-31] MEDS: predniSONE 20 MG TAB PO SCH ×2 (08:57→20:27)
--- NOTE | 2020-07-31 12:16 | PDOC.HOSPP ---
- Subjective Encounter Date: 07/31/20 Encounter Time: 12:03 Subjective: Ms. Werner was seen today in follow-up of COPD exacerbation. Today she says she doesn't feel any better. She says she feels the phlem in her chest again, and can't get it up. She also says her sister-in -law was just diagnosed with COVID and is in the ICU. She would like to be re-tested. - Objective Vital Signs & Weight: Vital Signs (12 hours) Temp Pulse Resp BP BP Pulse Ox 07/31/20 11:05 92 20 92 L 07/31/20 07:45 97.5 F L 78 18 142/77 H 100 07/31/20 07:36 98 07/31/20 07:35 87 20 98 07/31/20 07:34 87 20 98 07/31/20 05:52 98 07/31/20 04:00 97.6 F 72 18 133/60 98 Weight Weight 172 lb 3.2 oz I&O: 07/30/20 07/31/20 08/01/20 06:59 06:59 06:59 Intake Total 720 1360 Output Total 1700 1650 Balance -980 -290 Result Diagrams: 07/31/20 04:12 07/31/20 04:12 Additional Labs: Accuchecks 07/31/20 07/31/20 07/30/20 10:55 06:25 20:50 POC Glucose 196 H 259 H 172 H 07/30/20 16:36 POC Glucose 202 H Hospitalist ROS - Medication Medications: Active Medications Generic Name Dose Route Start Last Admin Trade Name Freq PRN Reason Stop Dose Admin Acetaminophen 650 mg 07/25/20 20:32 07/30/20 20:35 Acetaminophen 325 Mg Tab PO 650 mg Q4H PRN Administration Headache/Fever/Mild Pain (1-3) Hydrocodone Bitart/Acetaminophen 1 tab 07/25/20 20:32 07/26/20 11:45 Hydrocodone/Acetaminophen 5/325 Mg Tablet PO 1 tab Q4H PRN Administration Moderate Pain (4-6) Albuterol/Ipratropium 3 ml 07/25/20 20:28 07/30/20 23:23 Ipratropium/Albuterol Sulfate 3 Ml Neb NEB 3 ml Q2H PRN Administration SOB &/or Wheezing Albuterol/Ipratropium 3 ml 07/26/20 07:00 07/31/20 11:05 Ipratropium/Albuterol Sulfate 3 Ml Neb NEB 3 ml [id number] SAMUEL Administration Alprazolam 0.25 mg 07/28/20 09:00 07/31/20 08:54 Alprazolam 0.25 Mg Tab PO 0.25 mg BID SAMUEL Administration Doxycycline Hyclate 100 mg 07/26/20 21:00 07/31/20 08:54 Doxycycline 100 Mg Cap PO 08/02/20 21:01 100 mg BID SAMUEL Administration Famotidine 20 mg 07/25/20 21:00 07/31/20 08:54 Famotidine 20 Mg Tab PO 20 mg BID SAMUEL Administration Guaifenesin 600 mg 07/29/20 11:17 07/31/20 08:55 Guaifenesin Er 600 Mg Tab PO 600 mg Q12HR SAMUEL Administration Heparin Sodium (Porcine) 5,000 units 07/25/20 21:00 07/31/20 08:55 Heparin 5,000 Units/Ml Vial SC 5,000 units BID SAMUEL Administration Sodium Chloride 1,000 mls @ 60 mls/hr 07/30/20 07:45 07/31/20 01:05 Normal Saline 0.9% IV Not Given .[id number] [facility] Insulin Human Lispro 0 units 07/25/20 21:20 07/31/20 06:30 Humalog 300 Units/3 Ml Vial SC 6 unit .MODERATE SLIDING SC PRN Administration Moderate Correctional Scale Insulin Human Lispro 0 units 07/26/20 20:25 07/29/20 20:18 Humalog 300 Units/3 Ml Vial SC 4 units .BEDTIME SLIDING SC PRN Administration Bedtime Correctional Scale Loratadine 10 mg 07/27/20 21:19 07/30/20 11:49 Loratadine 10 Mg Tab PO 10 mg DAILYPRN PRN Administration Allergies Lorazepam 0.5 mg 07/25/20 21:22 07/27/20 20:56 Lorazepam 2 Mg/Ml Vial SLOW IVP 0.5 mg Q6H PRN Administration Anxiety/Agitation Magnesium Hydroxide 30 ml 07/27/20 21:18 07/27/20 21:29 Milk Of Magnesia 30 Ml Udcup PO 30 ml DAILYPRN PRN Administration Constipation Magnesium Oxide 400 mg 07/30/20 09:00 07/31/20 08:55 Magnesium Oxide 400 Mg Tab PO 400 mg BID SAMUEL Administration Metoprolol Tartrate 25 mg 07/25/20 21:00 07/31/20 08:56 Metoprolol Tartrate 25 Mg Tab PO 25 mg BID SAMUEL Administration Mometasone Furoate/Formoterol Fumar 2 puff 07/26/20 18:30 07/31/20 07:34 Mometasone 200 Mcg/Formoterol 5 Mcg 120 Puff Inhaler INH 2 puff BID-RT SAMUEL Administration Polyethylene Glycol 17 gm 07/26/20 09:00 07/31/20 08:57 Polyethylene Glycol 3350 17 Gm Packet PO Not Given DAILY SAMUEL Prednisone 40 mg 07/27/20 21:00 07/31/20 08:57 Prednisone 20 Mg Tab PO 40 mg BID SAMUEL Administration Senna 1 tab 07/26/20 01:24 07/27/20 08:57 Senokot 8.6 Mg Tab PO 1 tab DAILYPRN PRN Administration Constipation Sodium Chloride 10 ml 07/26/20 09:00 07/31/20 08:57 Flush - Normal Saline 10 Ml Syringe IVF Not Given Q12HR SAMUEL Sodium Chloride 10 ml 07/26/20 07:00 07/27/20 05:57 Flush - Normal Saline 10 Ml Syringe IVF 10 ml PRN PRN Administration Saline Flush - Exam Eye: PERRL, anicteric sclera Heart: RRR, no murmur, no gallops, no rubs, normal peripheral pulses Respiratory: wheezes (very faint, and poor air movement) Gastrointestinal: soft, non-tender, non-distended, normal bowel sounds, no palpable masses, no hepatomegaly Hosp A/P (1) Acute on chronic respiratory failure with hypoxemia Code(s): J96.21 - ACUTE AND CHRONIC RESPIRATORY FAILURE WITH HYPOXIA Status: Acute (2) COPD exacerbation Code(s): J44.1 - CHRONIC OBSTRUCTIVE PULMONARY DISEASE W (ACUTE) EXACERBATION Status: Acute (3) Diabetes mellitus, type II Status: Chronic Qualifiers: Diabetes mellitus long term acute care registered nurse insulin use: without group home use Diabetes mellitus complication status: without complication Qualified Code(s): E11.9 - Type 2 diabetes mellitus without complications (4) Hypertension Code(s): I10 - ESSENTIAL (PRIMARY) HYPERTENSION Status: Chronic Qualifiers: Hypertension type: essential hypertension Qualified Code(s): I10 - Essential (primary) hypertension (5) Obesity (BMI 30-39.9) Code(s): E66.9 - OBESITY, UNSPECIFIED Status: Chronic - Plan * Acute on chronic respiratory failure due to COPD exacerbation- slowly improving * Continue Prednisone and Doxycyline,and Mucinex * Will re-swab her for COVID * HTN- blood pressure is stable * DM- blood glucose is a bit better * MADISON- continue BiPAP when sleeping * Need to mobilize- will consult the walking program
[2020-07-31] MEDS ORDERED: methylPREDNISolone Sod Succ/PF 125 MG/2 ML VIAL IVP SCH (14:20)
--- NOTE | 2020-07-31 16:54 | PRG ---
DATE OF SERVICE: 07/31/2020 OBJECTIVE: VITAL SIGNS: Batsheva is afebrile. Heart rate is 80, respiratory rate 16, oximetry is 96, blood pressure 150/82. GENERAL: She says she feels worse today. LUNGS: Remarkable for diffuse wheezes. HEART: Regular rhythm. ABDOMEN: Soft. EXTREMITIES: Without edema. LABORATORY DATA: White count 17, hemoglobin 14.1, and platelets 333. Sodium 133, potassium 5.2, chloride 97, bicarb 25, BUN 40, and creatinine 1.5. IMPRESSION: Chronic obstructive pulmonary disease exacerbation. May be that she would benefit from reinstitution of IV fluids, reinstitution of IV steroids and continuing with frequent nebulizer treatments. These orders have been written. We will increase her Mucinex dose to see if this tracheobronchial tree. Job ID: [id number]
[2020-07-31] MEDS: methylPREDNISolone Sod Succ 40 MG VIAL IVP SCH ×2 (17:13→20:25)
[2020-07-31] MEDS: Sodium Chloride 0.45% 1,000 ML IV SCH (17:13)
[2020-08-01] MEDS: Sodium Chloride 0.45% 1,000 ML IV SCH ×2 (02:59→16:28)
[2020-08-01] MEDS: methylPREDNISolone Sod Succ 40 MG VIAL IVP SCH ×4 (02:59→20:47)
[2020-08-01] MEDS: HumaLOG 300 UNITS/3 ML VIAL SC PRN ×3 (06:44→17:37)
[2020-08-01] MEDS: Mometasone 200 MCG/Formoterol 5 MCG 120 PUFF INHALER INH SCH ×2 (07:36→22:34)
[2020-08-01] MEDS ORDERED: Insulin Glargine 15 UNITS in Pre-Filled Syringe 1 EACH SC SCH (09:00)
[2020-08-01 09:13] LABS: #Eosinphils 0.1 thou/uL (0.0-0.7); #Lymphocytes 1.3 thou/uL (1.20-3.40); #Monocytes 0.8 thou/uL (0.11-0.59); #Neutrophils 14.9 thou/uL (1.40-6.50); %Eosinophils 0.5 % (0.0-10.0); %Lymphocytes 7.7 % (21.0-51.0); %Monocytes 4.9 % (0.0-10.0); %Neutrophils 86.9 % (42.0-75.0); Hemoglobin 13.2 g/dL (12.0-16.0); Mean Corpuscular HGB CONC 31.9 g/dL (32.0-36.0); Mean Corpuscular Hemoglobin 29.3 pg (27.0-31.0); Mean Corpuscular Volume 91.9 fL (78.0-98.0); Mean Platelet Volume 7.3 fL (7.4-10.4); Platelet Count 313 thou/uL (130-400); RBC Distribution Width 12.4 % (11.5-14.5); White Blood Cell (WBC) Count 17.1 thou/uL (4.8-10.8)
[2020-08-01] MEDS: Famotidine 20 MG TAB PO SCH ×2 (09:22→20:46)
[2020-08-01] MEDS: ALPRAZolam 0.25 MG TAB PO SCH ×2 (09:22→20:46)
[2020-08-01] MEDS: Metoprolol Tartrate 25 MG TAB PO SCH ×2 (09:22→20:47)
[2020-08-01] MEDS: Magnesium Oxide 400 MG TAB PO SCH ×2 (09:22→20:47)
[2020-08-01] MEDS: Doxycycline 100 MG CAP PO SCH ×2 (09:22→20:46)
[2020-08-01] MEDS: guaiFENesin ER 600 MG TAB PO SCH ×2 (09:23→20:46)
[2020-08-01] MEDS: Heparin 5,000 UNITS/ML VIAL SC SCH ×2 (09:26→20:47)
[2020-08-01] MEDS: Polyethylene Glycol 3350 17 GM Packet PO SCH (09:26)
[2020-08-01 09:44] LABS: Anion Gap 13 mmol/L (10-20); BUN (Urea Nitrogen) 38 mg/dL (9.8-20.1); Calc. Creatinine Clearance 54 mL/min (70-130); Calcium 9.1 mg/dL (7.8-10.44); Carbon Dioxide 24 mmol/L (22-29); Chloride 99 mmol/L (98-107); Estimated GFR-MDRD 39; Glucose 335 mg/dL (70-105); Potassium 5.3 mmol/L (3.5-5.1); Sodium 131 mmol/L (136-145)
[2020-08-01] MEDS ORDERED: Naloxone HCl 0.4 mg/ml Vial ONE (10:20)
--- NOTE | 2020-08-01 12:24 | PRG ---
DATE OF SERVICE: 08/01/2020 SUBJECTIVE: Batsheva Werner says she feels better. But she is not well. Vital signs remained stable. She has had no fever. OBJECTIVE: LUNGS: Remarkable for distant breath sounds. HEART: Regular rate and rhythm. ABDOMEN: Soft. ASSESSMENT AND PLAN: I discussed exercise with Batsheva. Apparently, she does not do anything although she does have a treadmill at home. When I asked her she exercised her answer was "I cook." I suspect a lot of her shortness of breath at this point is related to deconditioning. There is no doubt she has a COPD exacerbation, put her being so either shape has made this worse than it would have been several years ago. We will continue current medications move off telemetry to non-monitored bed. Job ID: [id number]
[2020-08-01 12:50] LABS: SARS-CoV-2 MS2 Positive; SARS-CoV-2 N Gene Negative; SARS-CoV-2 S Gene Negative; SARS-CoV-2 by NAA Not Detected (NotDetected); SARS-CoV-2 orf1ab Negative
--- NOTE | 2020-08-01 13:06 | PDOC.HOSPP ---
- Subjective Encounter Date: 08/01/20 Encounter Time: 13:04 Subjective: Ms. Werner was seen today in follow-up of COPD exacerbation. She is about the same today. - Objective Vital Signs & Weight: Vital Signs (12 hours) Temp Pulse Resp BP Pulse Ox 08/01/20 11:50 98.1 F 83 18 143/79 H 99 08/01/20 10:42 86 20 96 08/01/20 07:39 98 08/01/20 07:38 94 20 98 08/01/20 07:36 94 20 98 08/01/20 07:35 97.4 F L 80 18 130/63 97 08/01/20 03:31 98.4 F 87 24 H 144/85 H 100 08/01/20 03:27 20 Weight Weight 171 lb 1.6 oz I&O: 07/31/20 08/01/20 08/02/20 06:59 06:59 06:59 Intake Total 1360 1850 Output Total 1650 2050 Balance -290 -200 Result Diagrams: 08/01/20 08:54 08/01/20 08:54 Additional Labs: Accuchecks 08/01/20 08/01/20 07/31/20 10:53 05:35 20:03 POC Glucose 215 H 292 H 351 H 07/31/20 17:18 POC Glucose 294 H Hospitalist ROS - Medication Medications: Active Medications Generic Name Dose Route Start Last Admin Trade Name Freq PRN Reason Stop Dose Admin Acetaminophen 650 mg 07/25/20 20:32 07/30/20 20:35 Acetaminophen 325 Mg Tab PO 650 mg Q4H PRN Administration Headache/Fever/Mild Pain (1-3) Hydrocodone Bitart/Acetaminophen 1 tab 07/25/20 20:32 07/26/20 11:45 Hydrocodone/Acetaminophen 5/325 Mg Tablet PO 1 tab Q4H PRN Administration Moderate Pain (4-6) Albuterol/Ipratropium 3 ml 07/25/20 20:28 08/01/20 03:27 Ipratropium/Albuterol Sulfate 3 Ml Neb NEB 3 ml Q2H PRN Administration SOB &/or Wheezing Albuterol/Ipratropium 3 ml 07/26/20 07:00 08/01/20 10:42 Ipratropium/Albuterol Sulfate 3 Ml Neb NEB 3 ml [id number] Administration Alprazolam 0.25 mg 07/28/20 09:00 08/01/20 09:22 Alprazolam 0.25 Mg Tab PO 0.25 mg BID SAMUEL Administration Doxycycline Hyclate 100 mg 07/26/20 21:00 08/01/20 09:22 Doxycycline 100 Mg Cap PO 08/02/20 21:01 100 mg BID SAMUEL Administration Famotidine 20 mg 07/25/20 21:00 08/01/20 09:22 Famotidine 20 Mg Tab PO 20 mg BID SAMUEL Administration Guaifenesin 1,200 mg 07/31/20 21:00 08/01/20 09:23 Guaifenesin Er 600 Mg Tab PO 1,200 mg Q12HR SAMUEL Administration Heparin Sodium (Porcine) 5,000 units 07/25/20 21:00 08/01/20 09:26 Heparin 5,000 Units/Ml Vial SC 5,000 units BID SAMUEL Administration Sodium Chloride 1,000 mls @ 75 mls/hr 07/31/20 14:30 08/01/20 02:59 1/2 Normal Saline IV 1,000 mls .[id number] SAMUEL Administration Insulin Glargine 15 units/ 0.15 mls @ 0 mls/hr 08/01/20 09:00 08/01/20 09:26 Miscellaneous Medication SC 0.15 mls QAM SAMUEL Administration Insulin Human Lispro 0 units 07/25/20 21:20 08/01/20 12:47 Humalog 300 Units/3 Ml Vial SC 4 unit .MODERATE SLIDING SC PRN Administration Moderate Correctional Scale Insulin Human Lispro 0 units 07/26/20 20:25 07/31/20 20:25 Humalog 300 Units/3 Ml Vial SC 5 units .BEDTIME SLIDING SC PRN Administration Bedtime Correctional Scale Loratadine 10 mg 07/27/20 21:19 07/30/20 11:49 Loratadine 10 Mg Tab PO 10 mg DAILYPRN PRN Administration Allergies Lorazepam 0.5 mg 07/25/20 21:22 07/27/20 20:56 Lorazepam 2 Mg/Ml Vial SLOW IVP 0.5 mg Q6H PRN Administration Anxiety/Agitation Magnesium Hydroxide 30 ml 07/27/20 21:18 07/27/20 21:29 Milk Of Magnesia 30 Ml Udcup PO 30 ml DAILYPRN PRN Administration Constipation Magnesium Oxide 400 mg 07/30/20 09:00 08/01/20 09:22 Magnesium Oxide 400 Mg Tab PO 400 mg BID SAMUEL Administration Methylprednisolone Sodium Succinate 40 mg 07/31/20 15:00 08/01/20 09:26 Methylprednisolone Sod Succ 40 Mg Vial IVP 40 mg 0300,0900,1500,2100 SAMUEL Administration Metoprolol Tartrate 25 mg 07/25/20 21:00 08/01/20 09:22 Metoprolol Tartrate 25 Mg Tab PO 25 mg BID SAMUEL Administration Mometasone Furoate/Formoterol Fumar 2 puff 07/26/20 18:30 08/01/20 07:36 Mometasone 200 Mcg/Formoterol 5 Mcg 120 Puff Inhaler INH 2 puff BID-RT SAMUEL Administration Polyethylene Glycol 17 gm 07/26/20 09:00 08/01/20 09:26 Polyethylene Glycol 3350 17 Gm Packet PO Not Given DAILY SAMUEL Senna 1 tab 07/26/20 01:24 07/27/20 08:57 Senokot 8.6 Mg Tab PO 1 tab DAILYPRN PRN Administration Constipation Sodium Chloride 10 ml 07/26/20 09:00 08/01/20 09:27 Flush - Normal Saline 10 Ml Syringe IVF 10 ml Q12HR SAMUEL Administration Sodium Chloride 10 ml 07/26/20 07:00 07/27/20 05:57 Flush - Normal Saline 10 Ml Syringe IVF 10 ml PRN PRN Administration Saline Flush - Exam Eye: PERRL, anicteric sclera Heart: RRR, no murmur, no gallops, no rubs, normal peripheral pulses Respiratory: no rales, rhonchi, wheezes Respiratory - other findings: + wheezing bilaterally Gastrointestinal: soft, non-tender, non-distended, normal bowel sounds, no palpable masses, no hepatomegaly Extremities: no cyanosis, no clubbing, 1+ LE edema Hosp A/P (1) Acute on chronic respiratory failure with hypoxemia Code(s): J96.21 - ACUTE AND CHRONIC RESPIRATORY FAILURE WITH HYPOXIA Status: Acute (2) COPD exacerbation Code(s): J44.1 - CHRONIC OBSTRUCTIVE PULMONARY DISEASE W (ACUTE) EXACERBATION Status: Acute (3) Diabetes mellitus, type II Status: Chronic Qualifiers: Diabetes mellitus correction insulin use: without correction use Diabetes me llitus complication status: without complication Qualified Code(s): E11.9 - Type 2 diabetes mellitus without complications (4) Hypertension Code(s): I10 - ESSENTIAL (PRIMARY) HYPERTENSION Status: Chronic Qualifiers: Hypertension type: essential hypertension Qualified Code(s): I10 - Essential (primary) hypertension (5) Obesity (BMI 30-39.9) Code(s): E66.9 - OBESITY, UNSPECIFIED Status: Chronic - Plan * Acute on chronic respiratory failure due to COPD exacerbation- slowly improving * She has been placed back on IV steroids * Mucinex dose has been increased. Re-screen for COVID is pending * HTN- blood pressure is stable * DM- blood glucose is elevated- will increase insulin * MADISON- continue BiPAP when sleeping * Continue walking program
[2020-08-01] MEDS ORDERED: Miconazole 100 mg Supp Box of 7 VAG SCH (21:00)
[2020-08-02] MEDS ORDERED: Miconazole 2% Vaginal Cream 45 GM TUBE VAG SCH (00:30)
[2020-08-02] MEDS: methylPREDNISolone Sod Succ 40 MG VIAL IVP SCH ×3 (03:30→15:36)
[2020-08-02] MEDS: Acetaminophen 325 MG TAB PO PRN ×3 (05:56→22:36)
[2020-08-02] MEDS: HumaLOG 300 UNITS/3 ML VIAL SC PRN ×3 (05:56→20:08)
[2020-08-02] MEDS: Sodium Chloride 0.45% 1,000 ML IV SCH (05:56)
[2020-08-02 06:14] LABS: Anion Gap 14 mmol/L (10-20); BUN (Urea Nitrogen) 37 mg/dL (9.8-20.1); Calc. Creatinine Clearance 64 mL/min (70-130); Calcium 9.5 mg/dL (7.8-10.44); Carbon Dioxide 23 mmol/L (22-29); Chloride 102 mmol/L (98-107); Estimated GFR-MDRD 48; Glucose 163 mg/dL (70-105); Potassium 4.7 mmol/L (3.5-5.1); Sodium 134 mmol/L (136-145)
[2020-08-02 06:33] LABS: Band 3 % (5-11); Eosinophils 1 % (0-10); Hemoglobin 12.7 g/dL (12.0-16.0); Lymphocytes 14 % (21-51); MDiff Complete? YES; Mean Corpuscular HGB CONC 32.5 g/dL (32.0-36.0); Mean Corpuscular Hemoglobin 29.6 pg (27.0-31.0); Mean Corpuscular Volume 91.1 fL (78.0-98.0); Mean Platelet Volume 7.4 fL (7.4-10.4); Metamyelocyte 1 % (0-0); Monocytes 10 % (0-10); Neutrophil 70 % (42-75); Platelet Count 291 thou/uL (130-400); Platelet Morphology Comment Appears Adequate; RBC Distribution Width 12.5 % (11.5-14.5); Reactive Lymphocytes 1 % (0-10); White Blood Cell (WBC) Count 19.4 thou/uL (4.8-10.8)
[2020-08-02] MEDS: Mometasone 200 MCG/Formoterol 5 MCG 120 PUFF INHALER INH SCH ×2 (06:41→18:38)
[2020-08-02] MEDS ORDERED: hydrALAZINE 25 MG TAB PO PRN (09:20)
--- NOTE | 2020-08-02 09:21 | PDOC.HOSPP ---
- Subjective Encounter Date: 08/02/20 Encounter Time: 09:19 Subjective: Ms. Werner was seen today in follow-up of COPD exacerbation. She says she has not gotten any better. She feels her progress has stalled. - Objective Vital Signs & Weight: Vital Signs (12 hours) Temp Pulse Resp BP Pulse Ox 08/02/20 07:41 98.1 F 92 16 145/80 H 94 L 08/02/20 06:38 82 16 98 08/02/20 04:00 97.8 F 74 20 123/76 99 08/02/20 01:52 98 08/02/20 01:48 97 08/01/20 23:30 98.1 F 85 20 128/69 97 08/01/20 22:41 96 08/01/20 22:40 98 08/01/20 22:34 96 Weight Weight 172 lb 4 oz I&O: 08/01/20 08/02/20 08/03/20 06:59 06:59 06:59 Intake Total 1850 2430 Output Total 2050 1025 Balance -200 1405 Result Diagrams: 08/02/20 05:14 08/02/20 05:14 Additional Labs: Accuchecks 08/02/20 08/01/20 08/01/20 04:21 20:47 17:15 POC Glucose 212 H 199 H 170 H 08/01/20 10:53 POC Glucose 215 H Hospitalist ROS - Medication Medications: Active Medications Generic Name Dose Route Start Last Admin Trade Name Freq PRN Reason Stop Dose Admin Acetaminophen 650 mg 07/25/20 20:32 08/02/20 05:56 Acetaminophen 325 Mg Tab PO 650 mg Q4H PRN Administration Headache/Fever/Mild Pain (1-3) Hydrocodone Bitart/Acetaminophen 1 tab 07/25/20 20:32 07/26/20 11:45 Hydrocodone/Acetaminophen 5/325 Mg Tablet PO 1 tab Q4H PRN Administration Moderate Pain (4-6) Albuterol/Ipratropium 3 ml 07/25/20 20:28 08/02/20 01:48 Ipratropium/Albuterol Sulfate 3 Ml Neb NEB 3 ml Q2H PRN Administration SOB &/or Wheezing Albuterol/Ipratropium 3 ml 07/26/20 07:00 08/02/20 06:38 Ipratropium/Albuterol Sulfate 3 Ml Neb NEB 3 ml [id number] SAMUEL Administration Alprazolam 0.25 mg 07/28/20 09:00 08/01/20 20:46 Alprazolam 0.25 Mg Tab PO 0.25 mg BID SAMUEL Administration Doxycycline Hyclate 100 mg 07/26/20 21:00 08/01/20 20:46 Doxycycline 100 Mg Cap PO 08/02/20 21:01 100 mg BID SAMUEL Administration Famotidine 20 mg 07/25/20 21:00 08/01/20 20:46 Famotidine 20 Mg Tab PO 20 mg BID SAMUEL Administration Guaifenesin 1,200 mg 07/31/20 21:00 08/01/20 20:46 Guaifenesin Er 600 Mg Tab PO 1,200 mg Q12HR SAMUEL Administration Heparin Sodium (Porcine) 5,000 units 07/25/20 21:00 08/01/20 20:47 Heparin 5,000 Units/Ml Vial SC 5,000 units BID SAMUEL Administration Sodium Chloride 1,000 mls @ 75 mls/hr 07/31/20 14:30 08/02/20 05:56 1/2 Normal Saline IV 1,000 mls .[id number] SAMUEL Administration Insulin Human Lispro 0 units 07/25/20 21:20 08/02/20 05:56 Humalog 300 Units/3 Ml Vial SC 4 unit .MODERATE SLIDING SC PRN Administration Moderate Correctional Scale Insulin Human Lispro 0 units 07/26/20 20:25 07/31/20 20:25 Humalog 300 Units/3 Ml Vial SC 5 units .BEDTIME SLIDING SC PRN Administration Bedtime Correctional Scale Loratadine 10 mg 07/27/20 21:19 07/30/20 11:49 Loratadine 10 Mg Tab PO 10 mg DAILYPRN PRN Administration Allergies Lorazepam 0.5 mg 07/25/20 21:22 07/27/20 20:56 Lorazepam 2 Mg/Ml Vial SLOW IVP 0.5 mg Q6H PRN Administration Anxiety/Agitation Magnesium Hydroxide 30 ml 07/27/20 21:18 07/27/20 21:29 Milk Of Magnesia 30 Ml Udcup PO 30 ml DAILYPRN PRN Administration Constipation Magnesium Oxide 400 mg 07/30/20 09:00 08/01/20 20:47 Magnesium Oxide 400 Mg Tab PO 400 mg BID SAMUEL Administration Methylprednisolone Sodium Succinate 40 mg 07/31/20 15:00 08/02/20 03:30 Methylprednisolone Sod Succ 40 Mg Vial IVP 40 mg 0300,0900,1500,2100 SAMUEL Administration Metoprolol Tartrate 25 mg 07/25/20 21:00 08/01/20 20:47 Metoprolol Tartrate 25 Mg Tab PO 25 mg BID SAMUEL Administration Mometasone Furoate/Formoterol Fumar 2 puff 07/26/20 18:30 08/02/20 06:41 Mometasone 200 Mcg/Formoterol 5 Mcg 120 Puff Inhaler INH 2 puff BID-RT SAMUEL Administration Polyethylene Glycol 17 gm 07/26/20 09:00 08/01/20 09:26 Polyethylene Glycol 3350 17 Gm Packet PO Not Given DAILY SAMUEL Senna 1 tab 07/26/20 01:24 07/27/20 08:57 Senokot 8.6 Mg Tab PO 1 tab DAILYPRN PRN Administration Constipation Sodium Chloride 10 ml 07/26/20 09:00 08/01/20 20:50 Flush - Normal Saline 10 Ml Syringe IVF Not Given Q12HR SAMUEL Sodium Chloride 10 ml 07/26/20 07:00 07/27/20 05:57 Flush - Normal Saline 10 Ml Syringe IVF 10 ml PRN PRN Administration Saline Flush - Exam Eye: PERRL, anicteric sclera Heart: RRR, no murmur, no gallops, no rubs, normal peripheral pulses Respiratory: no rales, no ronchi, wheezes (+ occasional wheeze,) Gastrointestinal: soft, non-tender, non-distended, normal bowel sounds, no palpa ble masses, no hepatomegaly Extremities: no cyanosis, no clubbing, no edema Hosp A/P (1) Acute on chronic respiratory failure with hypoxemia Code(s): J96.21 - ACUTE AND CHRONIC RESPIRATORY FAILURE WITH HYPOXIA Status: Acute (2) COPD exacerbation Code(s): J44.1 - CHRONIC OBSTRUCTIVE PULMONARY DISEASE W (ACUTE) EXACERBATION Status: Acute (3) Diabetes mellitus, type II Status: Chronic Qualifiers: Diabetes mellitus last ironer insulin use: without snf use Diabetes mellitus complication status: without complication Qualified Code(s): E11.9 - Type 2 diabetes mellitus without complications (4) Hypertension Code(s): I10 - ESSENTIAL (PRIMARY) HYPERTENSION Status: Chronic Qualifiers: Hypertension type: essential hypertension Qualified Code(s): I10 - Essential (primary) hypertension (5) Obesity (BMI 30-39.9) Code(s): E66.9 - OBESITY, UNSPECIFIED Status: Chronic - Plan * Acute on chronic respiratory failure due to COPD exacerbation- slowly improving * She has been placed back on IV steroids * Mucinex dose has been increased. Re-screen for COVID is negative * HTN- blood pressure is a bit elevated- Lisinopril is on hold due to acute kidney injury- will add Hydralazine as needed * DM- blood glucose is better * MADISON- continue BiPAP when sleeping * Continue walking program
[2020-08-02] MEDS: Doxycycline 100 MG CAP PO SCH ×2 (09:24→20:00)
[2020-08-02] MEDS: guaiFENesin ER 600 MG TAB PO SCH ×2 (09:25→20:01)
[2020-08-02] MEDS: Polyethylene Glycol 3350 17 GM Packet PO SCH (09:25)
[2020-08-02] MEDS: ALPRAZolam 0.25 MG TAB PO SCH ×2 (09:25→20:00)
[2020-08-02] MEDS: Metoprolol Tartrate 25 MG TAB PO SCH ×2 (09:25→20:03)
[2020-08-02] MEDS: Famotidine 20 MG TAB PO SCH ×2 (09:25→20:00)
[2020-08-02] MEDS: Magnesium Oxide 400 MG TAB PO SCH ×2 (09:26→20:01)
[2020-08-02] MEDS: Saccharomyces boulardii 250 MG CAP PO SCH (09:26)
[2020-08-02] MEDS: Insulin Glargine 20 UNITS in Pre-Filled Syringe 1 EACH SC SCH (09:27)
[2020-08-02] MEDS: Heparin 5,000 UNITS/ML VIAL SC SCH ×2 (09:27→20:01)
--- NOTE | 2020-08-02 16:10 | PRG ---
DATE OF SERVICE: 08/02/2020 SUBJECTIVE: Ms. Werner is still short of breath with minimal exertion. OBJECTIVE: VITAL SIGNS: She is afebrile, heart rate is 82, oximetry is 94, blood pressure 126/78. LUNGS: Remarkable for distant breath sounds. HEART: Regular rhythm. ABDOMEN: Soft. EXTREMITIES: Without edema. IMPRESSION AND PLAN: Chronic obstructive pulmonary disease exacerbation, slowly resolved. I will check a chest x-ray in the morning, but I doubt there will be anything new on her radiograph. We will continue with IV steroids for now. She will likely need swing bed to recover from this. Job ID: [id number]
[2020-08-02] MEDS: Nystatin 500,000 UNITS/5 ML UDCUP SSW SCH (20:04)
[2020-08-02] MEDS: Miconazole 2% Vaginal Cream 45 GM TUBE VAG SCH (20:04)
[2020-08-02] MEDS: predniSONE 20 MG TAB PO SCH (20:05)
[2020-08-03] MEDS: HumaLOG 300 UNITS/3 ML VIAL SC PRN ×2 (05:35→17:37)
[2020-08-03] MEDS: Mometasone 200 MCG/Formoterol 5 MCG 120 PUFF INHALER INH SCH ×2 (07:44→19:11)
--- NOTE | 2020-08-03 09:05 | RAD ---
PORTABLE CHEST: HISTORY: COPD. COMPARISON: 07/25/2020. FINDINGS: Lungs are clear. No infiltrate or vascular congestion. Heart size is normal. IMPRESSION: No acute process. POS: AGW
[2020-08-03] MEDS: Nystatin 500,000 UNITS/5 ML UDCUP SSW SCH ×4 (09:37→21:46)
[2020-08-03] MEDS: predniSONE 20 MG TAB PO SCH ×2 (09:38→21:45)
[2020-08-03] MEDS: Famotidine 20 MG TAB PO SCH ×2 (09:38→21:44)
[2020-08-03] MEDS: Magnesium Oxide 400 MG TAB PO SCH ×2 (09:38→21:45)
[2020-08-03] MEDS: ALPRAZolam 0.25 MG TAB PO SCH ×2 (09:38→21:44)
[2020-08-03] MEDS: Saccharomyces boulardii 250 MG CAP PO SCH (09:38)
[2020-08-03] MEDS: Acetaminophen 325 MG TAB PO PRN (09:39)
[2020-08-03] MEDS: Heparin 5,000 UNITS/ML VIAL SC SCH ×2 (09:39→21:44)
[2020-08-03] MEDS: Metoprolol Tartrate 25 MG TAB PO SCH ×2 (09:39→21:45)
[2020-08-03] MEDS: guaiFENesin ER 600 MG TAB PO SCH ×2 (09:39→21:44)
[2020-08-03] MEDS: Polyethylene Glycol 3350 17 GM Packet PO SCH (09:40)
[2020-08-03] MEDS: Insulin Glargine 20 UNITS in Pre-Filled Syringe 1 EACH SC SCH (09:41)
--- NOTE | 2020-08-03 13:54 | PDOC.HOSPP ---
- Subjective Encounter Date: 08/03/20 Encounter Time: 11:30 Subjective: Patient seen for follow-up regarding acute hypoxic respiratory failure. Reports that today she feels better. - Objective Vital Signs & Weight: Vital Signs (12 hours) Temp Pulse Resp BP BP Pulse Ox 08/03/20 11:41 98.3 F 69 15 126/71 99 08/03/20 09:45 100 08/03/20 07:54 98.0 F 78 16 147/80 H 100 08/03/20 07:42 91 16 95 08/03/20 05:15 99 Weight Weight 171 lb 1 oz I&O: 08/02/20 08/03/20 08/04/20 06:59 06:59 06:59 Intake Total 2430 2700 Output Total 1025 Balance 1405 2700 Result Diagrams: 08/02/20 05:14 08/02/20 05:14 Additional Labs: Accuchecks 08/03/20 08/03/20 08/02/20 11:47 05:34 19:57 POC Glucose 145 H 214 H 253 H 08/02/20 16:37 POC Glucose 262 H I reviewed patient's labs and MAR Hospitalist ROS - Review of Systems Respiratory: reports: cough, dry, SOB with excertion. denies: shortness of breath, hemoptysis, pleuritic pain, sputum, wheezing Cardiovascular: denies: chest pain, palpitations, orthopnea, paroxysmal noc. dyspnea, edema, light headedness - Medication Medications: Active Medications Generic Name Dose Route Start Last Admin Trade Name Freq PRN Reason Stop Dose Admin Acetaminophen 650 mg 07/25/20 20:32 08/03/20 09:39 Acetaminophen 325 Mg Tab PO 650 mg Q4H PRN Administration Headache/Fever/Mild Pain (1-3) Hydrocodone Bitart/Acetaminophen 1 tab 07/25/20 20:32 07/26/20 11:45 Hydrocodone/Acetaminophen 5/325 Mg Tablet PO 1 tab Q4H PRN Administration Moderate Pain (4-6) Albuterol/Ipratropium 3 ml 07/25/20 20:28 08/02/20 23:32 Ipratropium/Albuterol Sulfate 3 Ml Neb NEB 3 ml Q2H PRN Administration SOB &/or Wheezing Albuterol/Ipratropium 3 ml 07/26/20 07:00 08/03/20 07:42 Ipratropium/Albuterol Sulfate 3 Ml Neb NEB 3 ml [id number] SAMUEL Administration Alprazolam 0.25 mg 07/28/20 09:00 08/03/20 09:38 Alprazolam 0.25 Mg Tab PO 0.25 mg BID SAMUEL Administration Famotidine 20 mg 07/25/20 21:00 08/03/20 09:38 Famotidine 20 Mg Tab PO 20 mg BID SAMUEL Administration Guaifenesin 1,200 mg 07/31/20 21:00 08/03/20 09:39 Guaifenesin Er 600 Mg Tab PO 1,200 mg Q12HR SAMUEL Administration Heparin Sodium (Porcine) 5,000 units 07/25/20 21:00 08/03/20 09:39 Heparin 5,000 Units/Ml Vial SC Not Given BID SAMUEL Insulin Glargine 20 units/ 0.2 mls @ 0 mls/hr 08/02/20 09:00 08/03/20 09:41 Miscellaneous Medication SC 0.2 mls QAM SAMUEL Administration Insulin Human Lispro 0 units 07/25/20 21:20 08/03/20 05:35 Humalog 300 Units/3 Ml Vial SC 4 unit .MODERATE SLIDING SC PRN Administration Moderate Correctional Scale Insulin Human Lispro 0 units 07/26/20 20:25 08/02/20 20:08 Humalog 300 Units/3 Ml Vial SC 3 units .BEDTIME SLIDING SC PRN Administration Bedtime Correctional Scale Loratadine 10 mg 07/27/20 21:19 07/30/20 11:49 Loratadine 10 Mg Tab PO 10 mg DAILYPRN PRN Administration Allergies Lorazepam 0.5 mg 07/25/20 21:22 07/27/20 20:56 Lorazepam 2 Mg/Ml Vial SLOW IVP 0.5 mg Q6H PRN Administration Anxiety/Agitation Magnesium Hydroxide 30 ml 07/27/20 21:18 07/27/20 21:29 Milk Of Magnesia 30 Ml Udcup PO 30 ml DAILYPRN PRN Administration Constipation Magnesium Oxide 400 mg 07/30/20 09:00 08/03/20 09:38 Magnesium Oxide 400 Mg Tab PO 400 mg BID SAMUEL Administration Metoprolol Tartrate 25 mg 07/25/20 21:00 08/03/20 09:39 Metoprolol Tartrate 25 Mg Tab PO 25 mg BID SAMUEL Administration Miconazole Nitrate 0 gm 08/02/20 21:00 08/02/20 20:04 Miconazole 2% Vaginal Cream 45 Gm Tube VAG 08/07/20 21:01 1 applic HS SAMUEL Administration Mometasone Furoate/Formoterol Fumar 2 puff 07/26/20 18:30 08/03/20 07:44 Mometasone 200 Mcg/Formoterol 5 Mcg 120 Puff Inhaler INH 2 puff BID-RT SAMUEL Administration Nystatin 500,000 units 08/02/20 21:00 08/03/20 13:23 Nystatin 500,000 Units/5 Ml Udcup SSW 500,000 units QID SAMUEL Administration Polyethylene Glycol 17 gm 07/26/20 09:00 08/03/20 09:40 Polyethylene Glycol 3350 17 Gm Packet PO 17 gm DAILY SAMUEL Administration Prednisone 40 mg 08/02/20 21:00 08/03/20 09:38 Prednisone 20 Mg Tab PO 40 mg BID SAMUEL Administration Saccharomyces Boulardii 250 mg 08/02/20 09:00 08/03/20 09:38 Saccharomyces Boulardii 250 Mg Cap PO 250 mg DAILY SAMUEL Administration Senna 1 tab 07/26/20 01:24 07/27/20 08:57 Senokot 8.6 Mg Tab PO 1 tab DAILYPRN PRN Administration Constipation Sodium Chloride 10 ml 07/26/20 09:00 08/03/20 09:40 Flush - Normal Saline 10 Ml Syringe IVF Not Given Q12HR SAMUEL Sodium Chloride 10 ml 07/26/20 07:00 07/27/20 05:57 Flush - Normal Saline 10 Ml Syringe IVF 10 ml PRN PRN Administration Saline Flush - Exam General - other findings: Obese Eye: anicteric sclera ENT: moist mucosa Neck: supple Heart: RRR Respiratory: CTAB Respiratory - other findings: Diminished air entry bilateral bases Gastrointestinal: soft, non-tender Extremities: no cyanosis Skin: no rashes Psychiatric: normal affect, normal behavior Hosp A/P - Plan -Assessment (1) Acute on chronic respiratory failure with hypoxemia Code(s): J96.21 - ACUTE AND CHRONIC RESPIRATORY FAILURE WITH HYPOXIA Status: Acute (2) COPD exacerbation Code(s): J44.1 - CHRONIC OBSTRUCTIVE PULMONARY DISEASE W (ACUTE) EXACERBATION Status: Acute (3) Hypertension Code(s): I10 - ESSENTIAL (PRIMARY) HYPERTENSION Status: Chronic Qualifiers: Hypertension type: essential hypertension Qualified Code(s): I10 - Essential (primary) hypertension (4) Diabetes mellitus, type II Status: Chronic Qualifiers: Diabetes mellitus fci insulin use: without fci use Diabetes mellitus complication status: without complication Qualified Code(s): E11.9 - Type 2 diabetes mellitus without complications (5) Obesity (BMI 30-39.9) Code(s): E66.9 - OBESITY, UNSPECIFIED Status: Chronic - Plan * COPD exacerbation is slowly improving. * Patient is now on oral steroids and oral antibiotics. * HTN-controlled * DM-continue Accu-Cheks and insulin sliding scale * MADISON- continue BiPAP when sleeping * Continue walking program
--- NOTE | 2020-08-03 19:49 | PRG ---
DATE OF SERVICE: 08/03/2020 SUBJECTIVE: Batsheva Werner says she feels better. Her IV infiltrated, so she was taken off IV medication. She says she is feeling reasonably well. She says she feels better than yesterday. OBJECTIVE: VITAL SIGNS: Her vital signs have been stable. Lungs: Distant, clear. HEART: Regular rhythm. ABDOMEN: Soft. IMPRESSION: Severe chronic obstructive pulmonary disease with deconditioning. She will continue forward with current therapy. I have encouraged her to do exercises on her own. She needs to be evaluated for correction bed. Job ID: [id number]
[2020-08-03] MEDS: Miconazole 2% Vaginal Cream 45 GM TUBE VAG SCH (21:46)
[2020-08-04] MEDS: HumaLOG 300 UNITS/3 ML VIAL SC PRN ×3 (06:20→18:03)
[2020-08-04] MEDS: Mometasone 200 MCG/Formoterol 5 MCG 120 PUFF INHALER INH SCH ×2 (07:00→18:46)
[2020-08-04] MEDS: Insulin Glargine 20 UNITS in Pre-Filled Syringe 1 EACH SC SCH (08:40)
[2020-08-04] MEDS: Saccharomyces boulardii 250 MG CAP PO SCH (08:41)
[2020-08-04] MEDS: Magnesium Oxide 400 MG TAB PO SCH ×2 (08:41→20:36)
[2020-08-04] MEDS: predniSONE 20 MG TAB PO SCH ×2 (08:41→20:36)
[2020-08-04] MEDS: Famotidine 20 MG TAB PO SCH ×2 (08:41→20:36)
[2020-08-04] MEDS: guaiFENesin ER 600 MG TAB PO SCH ×2 (08:42→20:35)
[2020-08-04] MEDS: Metoprolol Tartrate 25 MG TAB PO SCH ×2 (08:42→20:36)
[2020-08-04] MEDS: ALPRAZolam 0.25 MG TAB PO SCH ×2 (08:42→20:36)
[2020-08-04] MEDS: Heparin 5,000 UNITS/ML VIAL SC SCH ×2 (08:43→20:37)
[2020-08-04] MEDS: Polyethylene Glycol 3350 17 GM Packet PO SCH (08:44)
[2020-08-04] MEDS: Nystatin 500,000 UNITS/5 ML UDCUP SSW SCH ×4 (09:00→20:44)
[2020-08-04] MEDS: Acetaminophen 325 MG TAB PO PRN ×2 (12:11→20:44)
--- NOTE | 2020-08-04 12:13 | PDOC.HOSPP ---
- Subjective Encounter Date: 08/04/20 Encounter Time: 09:00 Subjective: Patient seen for follow-up of acute on chronic hypoxic respiratory failure. Reports feeling better. She is not ambulating with walking program. - Objective Vital Signs & Weight: Vital Signs (12 hours) Temp Pulse Resp BP BP Pulse Ox 08/04/20 11:57 97.6 F 75 22 H 130/79 96 08/04/20 10:34 69 20 98 08/04/20 07:44 98.1 F 69 18 125/63 100 08/04/20 06:54 89 20 95 08/04/20 05:40 98 08/04/20 05:39 98 Weight Weight 177 lb 6 oz I&O: 08/03/20 08/04/20 08/05/20 06:59 06:59 06:59 Intake Total 2700 1760 Balance 2700 1760 Result Diagrams: 08/02/20 05:14 08/02/20 05:14 Additional Labs: Accuchecks 08/04/20 08/04/20 08/03/20 12:00 04:28 21:37 POC Glucose 208 H 242 H 107 H 08/03/20 15:30 POC Glucose 296 H I reviewed patient's labs and MAR Hospitalist ROS - Review of Systems Respiratory: reports: cough, dry, SOB with excertion. denies: shortness of breath, hemoptysis, pleuritic pain, sputum, wheezing Genitourinary: denies: dysuria, frequency, incontinence, hematuria, retention - Medication Medications: Active Medications Generic Name Dose Route Start Last Admin Trade Name Freq PRN Reason Stop Dose Admin Acetaminophen 650 mg 07/25/20 20:32 08/03/20 09:39 Acetaminophen 325 Mg Tab PO 650 mg Q4H PRN Administration Headache/Fever/Mild Pain (1-3) Hydrocodone Bitart/Acetaminophen 1 tab 07/25/20 20:32 07/26/20 11:45 Hydrocodone/Acetaminophen 5/325 Mg Tablet PO 1 tab Q4H PRN Administration Moderate Pain (4-6) Albuterol/Ipratropium 3 ml 07/25/20 20:28 08/03/20 23:52 Ipratropium/Albuterol Sulfate 3 Ml Neb NEB 3 ml Q2H PRN Administration SOB &/or Wheezing Albuterol/Ipratropium 3 ml 07/26/20 07:00 08/04/20 10:34 Ipratropium/Albuterol Sulfate 3 Ml Neb NEB 3 ml [id number] SAMUEL Administration Alprazolam 0.25 mg 07/28/20 09:00 08/04/20 08:42 Alprazolam 0.25 Mg Tab PO 0.25 mg BID SAMUEL Administration Famotidine 20 mg 07/25/20 21:00 08/04/20 08:41 Famotidine 20 Mg Tab PO 20 mg BID SAMUEL Administration Guaifenesin 1,200 mg 07/31/20 21:00 08/04/20 08:42 Guaifenesin Er 600 Mg Tab PO 1,200 mg Q12HR SAMUEL Administration Heparin Sodium (Porcine) 5,000 units 07/25/20 21:00 08/04/20 08:43 Heparin 5,000 Units/Ml Vial SC Not Given BID SAMUEL Insulin Glargine 20 units/ 0.2 mls @ 0 mls/hr 08/02/20 09:00 08/04/20 08:40 Miscellaneous Medication SC 0.2 mls QAM SAMUEL Administration Insulin Human Lispro 0 units 07/25/20 21:20 08/04/20 06:20 Humalog 300 Units/3 Ml Vial SC 4 unit .MODERATE SLIDING SC PRN Administration Moderate Correctional Scale Insulin Human Lispro 0 units 07/26/20 20:25 08/02/20 20:08 Humalog 300 Units/3 Ml Vial SC 3 units .BEDTIME SLIDING SC PRN Administration Bedtime Correctional Scale Loratadine 10 mg 07/27/20 21:19 07/30/20 11:49 Loratadine 10 Mg Tab PO 10 mg DAILYPRN PRN Administration Allergies Lorazepam 0.5 mg 07/25/20 21:22 07/27/20 20:56 Lorazepam 2 Mg/Ml Vial SLOW IVP 0.5 mg Q6H PRN Administration Anxiety/Agitation Magnesium Hydroxide 30 ml 07/27/20 21:18 07/27/20 21:29 Milk Of Magnesia 30 Ml Udcup PO 30 ml DAILYPRN PRN Administration Constipation Magnesium Oxide 400 mg 07/30/20 09:00 08/04/20 08:41 Magnesium Oxide 400 Mg Tab PO 400 mg BID SAMUEL Administration Metoprolol Tartrate 25 mg 07/25/20 21:00 08/04/20 08:42 Metoprolol Tartrate 25 Mg Tab PO 25 mg BID SAMUEL Administration Miconazole Nitrate 0 gm 08/02/20 21:00 08/03/20 21:46 Miconazole 2% Vaginal Cream 45 Gm Tube VAG 08/07/20 21:01 1 applic HS SAMUEL Administration Mometasone Furoate/Formoterol Fumar 2 puff 07/26/20 18:30 08/04/20 07:00 Mometasone 200 Mcg/Formoterol 5 Mcg 120 Puff Inhaler INH 2 puff BID-RT SAMUEL Administration Nystatin 500,000 units 08/02/20 21:00 08/03/20 21:46 Nystatin 500,000 Units/5 Ml Udcup SSW 500,000 units QID SAMUEL Administration Polyethylene Glycol 17 gm 07/26/20 09:00 08/04/20 08:44 Polyethylene Glycol 3350 17 Gm Packet PO 17 gm DAILY SAMUEL Administration Prednisone 40 mg 08/02/20 21:00 08/04/20 08:41 Prednisone 20 Mg Tab PO 40 mg BID SAMUEL Administration Saccharomyces Boulardii 250 mg 08/02/20 09:00 08/04/20 08:41 Saccharomyces Boulardii 250 Mg Cap PO 250 mg DAILY SAMUEL Administration Senna 1 tab 07/26/20 01:24 07/27/20 08:57 Senokot 8.6 Mg Tab PO 1 tab DAILYPRN PRN Administration Constipation Sodium Chloride 10 ml 07/26/20 09:00 08/04/20 08:45 Flush - Normal Saline 10 Ml Syringe IVF Not Given Q12HR SAMUEL Sodium Chloride 10 ml 07/26/20 07:00 07/27/20 05:57 Flush - Normal Saline 10 Ml Syringe IVF 10 ml PRN PRN Administration Saline Flush - Exam General - other findings: Is obese ENT: moist mucosa Neck: supple Heart: RRR Respiratory: CTAB Respiratory - other findings: Diminished air entry in both bases Gastrointestinal: soft, non-tender Extremities: no cyanosis Skin: no rashes Psychiatric: normal affect, normal behavior Hosp A/P - Plan -Assessment (1) Acute on chronic respiratory failure with hypoxemia Code(s): J96.21 - ACUTE AND CHRONIC RESPIRATORY FAILURE WITH HYPOXIA Status: Acute (2) COPD exacerbation Code(s): J44.1 - CHRONIC OBSTRUCTIVE PULMONARY DISEASE W (ACUTE) EXACERBATION Status: Acute (3) Hypertension Code(s): I10 - ESSENTIAL (PRIMARY) HYPERTENSION Status: Chronic Qualifiers: Hypertension type: essential hypertension Qualified Code(s): I10 - Essential (primary) hypertension (4) Diabetes mellitus, type II Status: Chronic Qualifiers: Diabetes mellitus moth exterminator insulin use: without chcf use Diabetes mellitus complication status: without complication Qualified Code(s): E11.9 - Type 2 diabetes mellitus without complications (5) Obesity (BMI 30-39.9) Code(s): E66.9 - OBESITY, UNSPECIFIED Status: Chronic - Plan * COPD exacerbation is slowly improving. * Continue oral steroids and oral antibiotics. * HTN-controlled * DM-continue Accu-Cheks and insulin sliding scale * MADISON-patient uses BiPAP when sleeping * Continue walking program. I emphasized the importance of participating so she can improve her mobility. She states that she does not wish to go to [facility].
--- NOTE | 2020-08-04 14:01 | PRG ---
DATE OF SERVICE: 08/04/2020 SUBJECTIVE: Batsheva Werner says she feels much better today. She actually thinks she can go home tomorrow. She has been walking around in her room. She says her dyspnea has improved. She has CPAP at home, oxygen at home, and a nebulizer. OBJECTIVE: VITAL SIGNS: She is afebrile. Heart rate 75, respiratory rate 22, oximetry is 96, blood pressure 130/79. LUNGS: She is not wheezing on exam. HEART: Regular rate and rhythm. ABDOMEN: Soft. IMPRESSION: Chronic obstructive pulmonary disease exacerbation. turning the corner. It is reasonable to discharge her home in the morning if she remains stable with slow steroid taper over a couple of weeks. [place] lives ([place]) so she can follow up with her local doctor. Job ID: [id number]
[2020-08-04] MEDS ORDERED: Albuterol 200 PUFF (6.7GM INHALER) INH PRN (19:51)
[2020-08-04] MEDS: Miconazole 2% Vaginal Cream 45 GM TUBE VAG SCH (20:38)
[2020-08-05] MEDS: HumaLOG 300 UNITS/3 ML VIAL SC PRN ×2 (05:50→13:04)
[2020-08-05] MEDS: Acetaminophen 325 MG TAB PO PRN (05:53)
[2020-08-05] MEDS: Mometasone 200 MCG/Formoterol 5 MCG 120 PUFF INHALER INH SCH (07:49)
[2020-08-05] MEDS: Polyethylene Glycol 3350 17 GM Packet PO SCH (08:17)
[2020-08-05] MEDS: Famotidine 20 MG TAB PO SCH (08:17)
[2020-08-05] MEDS: Saccharomyces boulardii 250 MG CAP PO SCH (08:18)
[2020-08-05] MEDS: Nystatin 500,000 UNITS/5 ML UDCUP SSW SCH ×2 (08:18→13:02)
[2020-08-05] MEDS: Magnesium Oxide 400 MG TAB PO SCH (08:18)
[2020-08-05] MEDS: ALPRAZolam 0.25 MG TAB PO SCH (08:18)
[2020-08-05] MEDS: guaiFENesin ER 600 MG TAB PO SCH (08:18)
[2020-08-05] MEDS: Metoprolol Tartrate 25 MG TAB PO SCH (08:18)
[2020-08-05] MEDS: predniSONE 20 MG TAB PO SCH (08:18)
[2020-08-05] MEDS: Insulin Glargine 20 UNITS in Pre-Filled Syringe 1 EACH SC SCH (08:19)
[2020-08-05] MEDS: Heparin 5,000 UNITS/ML VIAL SC SCH (08:19)
[2020-08-05 11:08] VITALS: BMI 31.6
[2020-08-05 11:48] VITALS: BP 127/74; TEMP 98
--- NOTE | 2020-08-05 12:07 | DIS ---
DATE OF ADMISSION: 07/25/2020 DATE OF DISCHARGE: 08/05/2020 PRIMARY CARE PROVIDER: Patricia Lance PA-C DISCHARGE DIAGNOSES: 1. Danrr-gq-[id number] hypoxic respiratory failure. 2. Chronic obstructive pulmonary disease exacerbation. 3. Respiratory acidosis. 4. COVID-19 test negative. 5. Hyperkalemia. 6. Hyponatremia. 7. [id number]-[id number] stage 3 renal failure. CONDITION OF THE PATIENT ON THE DAY OF DISCHARGE: Stable. I assessed Ms. Werner on the day of discharge. She denies any chest pain. Shortness of breath has improved. Vital signs are stable. S1 and S2 are heard, regular. Lungs are clear to auscultation bilaterally. CONSULTATIONS DURING THIS HOSPITALIZATION: Pulmonary and Critical Care Medicine, Dr. Hale. HOSPITAL COURSE: Ms. Werner is a pleasant 60-year-old lady, who was admitted to [facility] on July 25, 2020, for [id number] hypoxic respiratory failure secondary to COPD exacerbation. She was treated with BiPAP, oxygen, steroids, and antibiotics. She slowly improved. Chest x-ray done on August 03 showed clear lungs. Abdominal x-rays on July 28 did not show any acute intra-abdominal abnormality, no evidence for bowel obstruction. She has been cleared by Pulmonary and Critical Care Medicine Service for discharge home on August 05, 2020. Many thanks for allowing me to participate in your patient's care. Please feel free to contact me with any questions or concerns. POST-ACUTE CARE FOLLOWUP: With primary care provider in 3 days. DIET: Heart healthy and diabetic. ACTIVITY: As tolerated. DISCHARGE DESTINATION: Home. DISCHARGE MEDICATIONS: 1. Oral steroid taper over next 2 weeks. 2. Miconazole 2% vaginal cream at bedtime until August 07, 2020. Otherwise, no change was made to her pre-admission home medications. TIME SPENT: Total amount of time spent coordinating this discharge: 25 minutes. Job ID: [id number]
--- NOTE | 2020-08-05 12:48 | PRG ---
DATE OF SERVICE: 08/05/2020 SUBJECTIVE: Batsheva Werner says she is ready to go home. There has been no fever, chills, or sweats. OBJECTIVE: VITAL SIGNS: Temperature is 98, heart rate 81, respiratory rate is 20, oximetry is 94 on room air, and blood pressure 127/74. LUNGS: Clear today. HEART: Regular rhythm. ABDOMEN: Soft. IMPRESSION: Chronic obstructive pulmonary disease exacerbation. PLAN: Discharge with slow steroid taper. Completion of her antibiotics. Follow up with me in 2 to 3 weeks. Job ID: [id number]
--- NOTE | 2020-08-08 05:19 | PQF ---
CLINICAL DOCUMENTATION CLARIFICATION FORM: Dear : Cullen Valiente Date / Time: 08/08/2020 [id number] Please exercise your independent, professional judgment in responding to the clarification form. Clinical indicators are provided on the bottom of this form for your review Based on the clinical indicators on admit, can you determine if Acute on Chronic Respiratory Failure was present at the time of admission? Diagnosis: Acute on Chronic Respiratory Failure Present on Admission (POA): [ x ] Yes [ ] No [ ] Unable to determine Physician Signature: Date/Time: For continuity of documentation, please document condition throughout progress notes and discharge summary. Thank You. To be completed by CDI/Coding staff for physician review: Present Clinical Indicators - Signs / Symptoms / Labs Results and Location in Medical Record [X] ABG: pH 7.36, pCO2 37.3; 38.6, pCO2 80.0; 145.8, sat 96.1; 99.0, O2 content 16.7; 18.7, base excess -.4.6; -.3.5 Laboratory 07/26 [X] BP 135/62, Pulse 88, Resp 20, Temp 97.9, O2 sat 97% Vital signs 07/25 [X] BP 102/50, Pulse 77, Resp 21, Temp 97.6, O2 sat 77% Vital signs 07/26 [X] presented for 2 weeks worsening shortness of breath H&P p1 07/25 Dr Martino [X] 2 weeks ago with cough, SOB, increased congestion, wheezing H&P p1 07/25 Dr Martino [X] Respiratory findings: diffuse wheezing, prolonged expiratory phase H&P p2 07/25 Dr Martino [X] Respiratory acidosis H&P p3 07/25 Dr Martino [X] Acute on chronic respiratory failure due to COPD exacerbation HPN p5 Dr Nichols 08/02 [X] Chest Xray: Hyperinflation with chronic changes Chest Xray 07/25 Present Risk Factors Results and Location in Medical Record [X] COPD on 3L oxygen at home H&P p1 07/25 Dr Martino [X] CHF H&P p1 07/25 Dr Martino [X] Former smoker H&P p1 07/25 Dr Martino [X] Obesity HPN p5 Dr Nichols 08/02 [X] DM HPN p5 Dr Nichols 08/02 [X] HTN HPN p5 Dr Nichols 08/02 [X] MADISON HPN p5 Dr Nichols 08/02 Present Treatments Results and Location in Medical Record [X] Duoneb 3 ml Neb DEC 25 [X] IV Solu-Medrol 40 mg DEC 25 [X] Dulera 100 mcg puff inhaler DEC 25 [X] Prednisone 40 mg oral DEC 25 [X] ABG Laboratory 07/26 [X] Oxygen 2L Respiratory Panel 07/25 [X] Oxygen 3L Respiratory Panel 07/26 [X] BiPAP Respiratory Panel 07/26 [X] Chest X-ray Imaging Dr Bello 07/25 [X] Pulmo consult Consult Kali Vickers 07/27 CDS/Curb Hop Signature: Mercedes Crockett Phone #: ext [phone] Date/Time: 08/08/2020 0518 This is a permanent part of the Medical Record [facility]
--- NOTE | 2020-08-08 05:20 | PQF ---
CLINICAL DOCUMENTATION CLARIFICATION FORM: Dear : Cullen Valiente Date / Time: 08/08/2020 0519 Please exercise your independent, professional judgment in responding to the clarification form. Clinical indicators are provided on the bottom of this form for your review Please check appropriate box(es) to clarify if the following diagnosis has been ruled in our ruled out: Sepsis [ ] Ruled in diagnosis [ ] Continue to treat [ ] Resolved [x ] Ruled out diagnosis [ ] Improving [ ] Cannot rule out diagnosis [ ] Other diagnosis [ ] Unable to determine Physician Signature: Date/Time: For continuity of documentation, please document condition throughout progress notes and discharge summary. Thank You. To be completed by CDI/Coding staff for physician review: Present Clinical Indicators - Signs / Symptoms / Labs Results and Location in Medical Record [X] BP 135/62, Pulse 88, Resp 20, Temp 97.9, O2 sat 97% Vital signs 07/25 [X] WBC 12.7, Neutrophils 7.2, Band 2 [X] 2 weeks ago with cough, SOB, increased congestion, wheezing H&P p1 07/25 Dr Martino [X] Respiratory findings: diffuse wheezing, prolonged expiratory phase H&P p2 07/25 Dr Martino [X] Respiratory acidosis H&P p3 07/25 Dr Martino [X] Sepsis due to COPD exacerbation H&P p3 07/25 Dr Martino [X] Acute on chronic respiratory failure due to COPD exacerbation HPN p5 Dr Nichosl 08/02 Present Risk Factors Results and Location in Medical Record [X] COPD on 3L oxygen at home H&P p1 07/25 Dr Martino [X] CHF H&P p1 07/25 Dr Martino [X] Former smoker H&P p1 07/25 Dr Martino [X] Obesity HPN p5 Dr Nichols 08/02 [X] DM HPN p5 Dr Nichols 08/02 [X] HTN HPN p5 Dr Nichols 08/02 [X] MADISON HPN p5 Dr Nichols 08/02 Present Treatments Results and Location in Medical Record [X] IV Azithromycin 500 mg DEC 25 [X] Duoneb 3 ml Neb DEC 25 [X] IVF NS 1L DEC 25 [X] IV Solu-Medrol 40 mg DEC 25 [X] Dulera 100 mcg puff inhaler MAR 07/26 [X] Prednisone 40 mg oral DEC 25 [X] ABG Laboratory 07/26 [X] Oxygen 2L Respiratory Panel 07/25 [X] Oxygen 3L Respiratory Panel 07/26 [X] BiPAP Respiratory Panel 07/26 [X] Chest X-ray Imaging Dr Bello 07/25 [X] Pulmo consult Consult Kali Vickers 07/27 CDS/Solar System Designer Signature: Mercedes Crockett Phone #: ext [phone] Date/Time: 08/08/2020 0519 This is a permanent part of the Medical Record [facility]
== END 2020-08-05 13:49 | disposition home or self-care (01) | DRG 189 ==
LOC: 2NO 20:01 → T4-A 08-01 19:26
PROVIDERS: ADMIT Internal Medicine; ATTEND Internal Medicine
PROC: 5A09357 Assistance with Respiratory Ventilation, Less than 24 Consecutive Hours, Continuous Positive Airway Pressure (ICD-10-PCS; principal; 2020-07-26)
DX: J96.21 Acute and chronic respiratory failure with hypoxia (principal); J44.1 Chronic obstructive pulmonary disease with (acute) exacerbation; E87.1 Hypo-osmolality and hyponatremia; E87.2 Acidosis; N17.9 Acute kidney failure, unspecified; I13.0 Hypertensive heart and chronic kidney disease with heart failure and stage 1 through stage 4 chronic kidney disease, or unspecified chronic kidney disease; Z20.828 Contact with and (suspected) exposure to other viral communicable diseases; E87.5 Hyperkalemia; N18.30 Chronic kidney disease, stage 3 unspecified; I25.10 Atherosclerotic heart disease of native coronary artery without angina pectoris; I50.9 Heart failure, unspecified; E66.01 Morbid (severe) obesity due to excess calories; F41.9 Anxiety disorder, unspecified; J40 Bronchitis, not specified as acute or chronic; G47.33 Obstructive sleep apnea (adult) (pediatric); E11.22 Type 2 diabetes mellitus with diabetic chronic kidney disease; E11.51 Type 2 diabetes mellitus with diabetic peripheral angiopathy without gangrene; Z28.21 Immunization not carried out because of patient refusal; Z99.81 Dependence on supplemental oxygen; Z90.49 Acquired absence of other specified parts of digestive tract; Z98.1 Arthrodesis status; Z98.51 Tubal ligation status; Z87.891 Personal history of nicotine dependence; Z68.31 Body mass index [BMI] 31.0-31.9, adult; Z79.899 Other long term (current) drug therapy; Z88.2 Allergy status to sulfonamides; Z79.84 Long term (current) use of oral hypoglycemic drugs
CPT/HCPCS: 36415; 36416; 71045; 74018; 80048; 82805; 83605; 83735; 85025; 87635; 94640; 94660; J0456; J1644; J1815; J1940; J2060; J2310; J2920; J3475; J7050; J7512; J7620; U0003

== ENCOUNTER 2020-08-22 16:45 | Inpatient (IN) | payer MEDICARE ==
[2020-08-22] MEDS ORDERED: Albuterol 200 PUFF (6.7GM INHALER) ONE (17:57)
[2020-08-22 18:52] LABS: ALT (SGPT) 35 U/L (8-55); AST (SGOT) 25 U/L (5-34); Albumin 3.3 g/dL (3.5-5.0); Alkaline Phosphatase 49 U/L (40-110); Anion Gap 15 mmol/L (10-20); BUN (Urea Nitrogen) 20 mg/dL (9.8-20.1); Bilirubin, Total 0.3 mg/dL (0.2-1.2); Calc. Creatinine Clearance 0 mL/min (70-130); Calcium 8.2 mg/dL (7.8-10.44); Carbon Dioxide 20 mmol/L (22-29); Chloride 102 mmol/L (98-107); Estimated GFR-MDRD 54; Glucose 252 mg/dL (70-105); Potassium 4.4 mmol/L (3.5-5.1); Protein, Total 6.3 g/dL (6.0-8.3); Sodium 133 mmol/L (136-145)
[2020-08-22 19:10] LABS: SARS-CoV-2 NAA Rapid Test DETECTED (NotDetected)
[2020-08-22] MEDS ORDERED: cefTRIAXone\\ROCEPHIN 1 GM in Sodium Chloride 0.9% 100 ML IVPB SCH (19:15)
--- NOTE | 2020-08-22 19:27 | PDOC.HHP ---
Hospitalist HPI - History of Present Illness Shortness of breath History of Present Illness: Patient is a pleasant 60-year-old lady who was seen in the emergency room on August 22, 2020. Patient was hospitalized at this facility from July 25- of this year for acute on chronic hypoxic respiratory failure and COPD exacerbation. She had a negative Covid test during that hospitalization. Patient reports that following discharge she continued to have shortness of breath with exertion. She reports occasional cough. She denies any fevers or chills. She denies any sick contacts. She denies any body aches. She presented to the emergency room at [facility] because of ongoing shortness of breath. At [facility] [place], she had oxygen saturations in the low 90s and she was started on oxygen there. Also received cefepime. She was subsequently transferred to our emergency room. In the emergency room, she was administered albuterol by inhaler. She was subsequently referred to hospitalist service for admission for COPD exacerbation. Rapid Covid test was sent and was positive for Covid virus. Please note that at [facility] she had CT angiogram of the chest, which did not show any evidence for central pulmonary embolus. There was no gross focal consolidation, pleural fluid or pneumothorax. ED Course: BP: 111/76, Pulse: 98, Resp: 24, Temp: 98.9 (Oral), Pain: 6, O2 sat: 98 on (3L Oxygen), Time: 08/22/2020 16:52. Hospitalist ROS - Review of Systems Respiratory: reports: cough, dry, SOB with excertion, wheezing. denies: shortness of breath, hemoptysis, pleuritic pain, sputum Cardiovascular: denies: chest pain, palpitations, orthopnea, paroxysmal noc. dyspnea, edema, light headedness All other systems reviewed; all pertinent +/- noted in HPI/Subj - Medication Medications: Allergies: Sulfa Home medications: famotidine oral TABLET : Strength - 20 mg : ORAL Patient Dose: 20 mg Oral once a day. DuoNeb AMPUL FOR NEBULIZATION (ML) : Strength - 0.5 mg-3 mg (2.5 mg base)/3 mL : INHALATION Patient Dose: 1 units Nebulize every 4 hours prn. Lasix oral TABLET : Strength - 20 mg : ORAL Patient Dose: 40 mg Oral once a day. lisinopril TABLET : Strength - 2.5 mg : ORAL Patient Dose: 2.5 mg Oral once a day. meTOPROLOL succinate TABLET, EXTENDED RELEASE 24 HR : Strength - 25 mg : ORAL Patient Dose: 25 mg Oral 2 times a day. Ventolin aerosol inhaler AEROSOL (GRAM) : Strength - 90 mcg : INHALATION Patient Dose: As Needed. Hospitalist History - Past Medical History Other Medical History: Past medical history: COPD, CHF, PVD, CAD, colon rupture Surgical history: Colostomy, colon resection, tubal ligation, appendectomy, cervical fusion Family History: reports: Congestive heart failure in her mother. Social history: Patient is a former smoker. She denies alcohol use or recreational drug use. - Exam General Appearance: awake alert Eye: anicteric sclera ENT: normocephalic atraumatic, moist mucosa Neck: supple, symmetric, no thyromegaly, no lymphadenopathy Heart: RRR, no gallops, no rubs, normal peripheral pulses Respiratory: no rales, no ronchi, normal chest expansion, wheezes Gastrointestinal: soft, non-tender, non-distended, normal bowel sounds Skin: no rashes Psychiatric: normal affect, normal behavior, A&O x 3 Hospitalist Results - Labs Result Diagrams: 08/22/20 17:47 Lab results: Sodium 133 mmol/L (136-145) L 08/22/20 17:47 Potassium 4.4 mmol/L (3.5-5.1) 08/22/20 17:47 Chloride 102 mmol/L (98-107) 08/22/20 17:47 Carbon Dioxide 20 mmol/L (22-29) L 08/22/20 17:47 BUN 20 mg/dL (9.8-20.1) 08/22/20 17:47 Creatinine 1.05 mg/dL (0.6-1.1) 08/22/20 17:47 Glucose 252 mg/dL (70-105) H 08/22/20 17:47 Lactic Acid 1.5 mmol/L (0.5-2.2) 08/22/20 17:47 Calcium 8.2 mg/dL (7.8-10.44) 08/22/20 17:47 Total Bilirubin 0.3 mg/dL (0.2-1.2) 08/22/20 17:47 AST 25 U/L (5-34) 08/22/20 17:47 ALT 35 U/L (8-55) 08/22/20 17:47 Alkaline Phosphatase 49 U/L (40-110) 08/22/20 17:47 Troponin I 0.021 ng/mL (< 0.028) 08/22/20 17:47 Serum Total Protein 6.3 g/dL (6.0-8.3) 08/22/20 17:47 Albumin 3.3 g/dL (3.5-5.0) L 08/22/20 17:47 - EKG Interpretation EKG: EKG by my review shows normal sinus rhythm, no ST changes to suggest an acute coronary syndrome. - Radiology Interpretation CT scan - chest Status: image reviewed by me Additional Comment: EXAM: CT pulmonary angiogram with IV contrast and 3-D MIP reconstructions PROVIDED CLINICAL HISTORY: Shortness of breath COMPARISON: None FINDINGS: Evaluation is limited by patient respiratory motion. There is no evidence for central pulmonary embol us. The visualized systemic arterial system appears unremarkable other than vascular calcification including coronary calcium. No gross focal consolidation is evident. No pleural fluid or pneumothorax apparent. No evidence for thoracic lymph node enlargement. The airway appears patent and of normal caliber. The visualized portions of the upper abdomen demonstrate no acute findings. Fatty infiltration of the liver is demonstrated. The osseous structures demonstrate no concerning lytic or blastic lesions. Remote lower thoracic vert ebral body compression deformity. IMPRESSION: Limited study. No evidence for central pulmonary embolus. Hospitalist H&P A/P - Problem (1) COPD exacerbation Code(s): J44.1 - CHRONIC OBSTRUCTIVE PULMONARY DISEASE W (ACUTE) EXACERBATION Status: Acute (2) COVID-19 virus infection Code(s): U07.1 - COVID-19 Status: Acute (3) Diabetes mellitus, type II Status: Chronic Qualifiers: Diabetes mellitus termite control technician insulin use: without termite control technician use Diabetes mellitus complication status: without complication Qualified Code(s): E11.9 - Type 2 diabetes mellitus without complications (4) Hypertension Code(s): I10 - ESSENTIAL (PRIMARY) HYPERTENSION Status: Chronic Qualifiers: Hypertension type: essential hypertension Qualified Code(s): I10 - Essential (primary) hypertension (5) Obesity (BMI 30-39.9) Code(s): E66.9 - OBESITY, UNSPECIFIED Status: Chronic - Plan Plan: Patient will be admitted to the hospital for further management. As needed oxygen, IV steroids, bronchodilators and antibiotics for COPD exacerbation. Patient was maintaining oxygen saturations above 90% while on room air at [facility] [place]. For now, start zinc and vitamin C. Also, CT scanning at [facility] does not appear to show evidence of viral pneumonia. Start Accu-Cheks and insulin sliding scale, resume Metformin. Resume lisinopril and metoprolol, monitor vital signs and titrate antihypertensives as needed. Many thanks for allowing me to participate in your patient's care. Please feel free to contact me with any questions or concerns. Level of risk: High Level of complexity: High Estimated length of stay in the hospital: Greater than 2 midnights Primary care provider: Patricia mcguire
[2020-08-22] MEDS ORDERED: Ascorbic Acid 500 mg Chewable Tablet PO SCH (19:30)
[2020-08-22] MEDS ORDERED: Zinc Sulfate 220 MG CAP PO SCH (19:30)
[2020-08-22] MEDS ORDERED: metFORMIN 500 MG TAB PO PRN (19:37)
[2020-08-22] MEDS ORDERED: Dextrose 5% in Water 1,000 ML IV PRN (19:39)
[2020-08-22] MEDS ORDERED: Dextrose 50% Abboject 50 ML SYRINGE SLOW IVP PRN (19:39)
[2020-08-22] MEDS ORDERED: Azithromycin 500 MG in Sodium Chloride 0.9% 250 ML 250 ML IVPB SCH (20:00)
[2020-08-22] MEDS ORDERED: Aspirin Chewable 81 MG TAB ONE (21:45)
[2020-08-23] MEDS: methylPREDNISolone Sod Succ 40 MG VIAL IVP SCH ×4 (00:21→17:44)
[2020-08-23] MEDS: ALPRAZolam 0.25 MG TAB PO SCH ×4 (00:22→21:42)
[2020-08-23] MEDS: Cefepime 1 GM in Sodium Chloride 0.9% 100 ML IVPB SCH ×3 (00:24→21:41)
[2020-08-23] MEDS: Enoxaparin Sodium 40 MG/0.4 ML SYRINGE SC SCH ×3 (00:25→21:41)
[2020-08-23] MEDS: Metoprolol Tartrate 25 MG TAB PO SCH ×3 (00:26→21:42)
[2020-08-23] MEDS: Famotidine 20 MG TAB PO SCH ×3 (00:26→21:42)
[2020-08-23] MEDS ORDERED: Albuterol 200 PUFF (6.7GM INHALER) INH SCH (01:15)
[2020-08-23] MEDS: Azithromycin 500 MG in Sodium Chloride 0.9% 250 ML 250 ML IVPB SCH (01:28)
[2020-08-23] MEDS: Albuterol 200 PUFF (6.7GM INHALER) INH SCH ×6 (01:30→23:18)
[2020-08-23] MEDS: Ondansetron PF 4 MG/2 ML Vial IVP PRN ×2 (03:02→21:58)
[2020-08-23 05:50] LABS: #Basophils 0.1 thou/uL (0.0-0.2); #Lymphocytes 0.6 thou/uL (1.20-3.40); #Monocytes 0.5 thou/uL (0.11-0.59); #Neutrophils 5.6 thou/uL (1.40-6.50); %Basophils 1.6 % (0.0-1.0); %Eosinophils 0.7 % (0.0-10.0); %Lymphocytes 8.3 % (21.0-51.0); %Neutrophils 82.4 % (42.0-75.0); Hemoglobin 11.6 g/dL (12.0-16.0); Mean Corpuscular HGB CONC 32.5 g/dL (32.0-36.0); Mean Corpuscular Hemoglobin 29.6 pg (27.0-31.0); Mean Platelet Volume 7.4 fL (7.4-10.4); Platelet Count 254 thou/uL (130-400); RBC Distribution Width 13.4 % (11.5-14.5); Red Blood Cell (RBC) Count 3.92 mill/uL (4.20-5.40); White Blood Cell (WBC) Count 6.8 thou/uL (4.8-10.8)
[2020-08-23 06:11] LABS: Anion Gap 13 mmol/L (10-20); BUN (Urea Nitrogen) 21 mg/dL (9.8-20.1); Calc. Creatinine Clearance 69 mL/min (70-130); Calcium 8.4 mg/dL (7.8-10.44); Carbon Dioxide 26 mmol/L (22-29); Chloride 102 mmol/L (98-107); Estimated GFR-MDRD 51; Glucose 246 mg/dL (70-105); Potassium 5.2 mmol/L (3.5-5.1); Sodium 136 mmol/L (136-145)
[2020-08-23] MEDS: HumaLOG 300 UNITS/3 ML VIAL SC PRN ×3 (06:38→17:45)
[2020-08-23] MEDS: Lisinopril 2.5 MG TAB PO SCH (10:17)
[2020-08-23] MEDS: Ascorbic Acid 500 mg Chewable Tablet PO SCH (10:18)
[2020-08-23] MEDS: Zinc Sulfate 220 MG CAP PO SCH (10:18)
[2020-08-23] MEDS ORDERED: Simethicone Chewable 80 MG TAB PO SCH (11:45)
--- NOTE | 2020-08-23 16:00 | PDOC.HOSPP ---
- Subjective Encounter Date: 08/23/20 Encounter Time: 08:20 Subjective: Patient seen for follow-up regarding COPD exacerbation. She denies any fevers or chills. - Objective Vital Signs & Weight: Vital Signs (12 hours) Temp Pulse Resp BP BP Pulse Ox 08/23/20 12:48 97.9 F 75 28 H 100/59 L 94 L 08/23/20 10:17 73 105/53 L 08/23/20 08:00 97.5 F L 85 18 141/56 H 93 L 08/23/20 05:10 94 L Weight Weight 175 lb 9.6 oz I&O: 08/22/20 08/23/20 08/24/20 06:59 06:59 06:59 Intake Total 640 Output Total 625 Balance 15 Result Diagrams: 08/23/20 05:03 08/23/20 05:04 Additional Labs: Accuchecks 08/23/20 08/23/20 08/22/20 12:45 06:30 23:20 POC Glucose 210 H 247 H 198 H Labs and MAR reviewed by me EKG Reviewed by me: Yes (Normal sinus rhythm on telemetry) Hospitalist ROS - Review of Systems Constitutional: denies: fever, chills, sweats, weakness, malaise Respiratory: reports: cough, dry, SOB with excertion. denies: shortness of breath, hemoptysis, pleuritic pain, sputum, wheezing Cardiovascular: denies: chest pain, palpitations, orthopnea, paroxysmal noc. dyspnea, edema, light headedness Gastrointestinal: denies: nausea, vomiting, abdominal pain, diarrhea, constip ation, melena, hematochezia Genitourinary: denies: dysuria, frequency, incontinence, hematuria, retention Skin: denies: rash, lesions, guicho, bruising - Medication Medications: Active Medications Generic Name Dose Route Start Last Admin Trade Name Freq PRN Reason Stop Dose Admin Albuterol Sulfate 2 puff 08/23/20 02:30 08/23/20 13:06 Albuterol 200 Puff (6.7gm Inhaler) INH 2 puff [id number] SAMUEL Administration Alprazolam 0.25 mg 08/22/20 09:00 08/23/20 10:19 Alprazolam 0.25 Mg Tab PO 0.25 mg BID SAMUEL Administration Ascorbic Acid 1,000 mg 08/23/20 09:00 08/23/20 10:18 Ascorbic Acid 500 Mg Chewable Tablet PO 1,000 mg DAILY SAMUEL Administration Enoxaparin Sodium 40 mg 08/22/20 21:00 08/23/20 10:17 Enoxaparin Sodium 40 Mg/0.4 Ml Syringe SC 40 mg 0900,2100 SAMUEL Administration Famotidine 20 mg 08/22/20 21:00 08/23/20 10:17 Famotidine 20 Mg Tab PO 20 mg BID SAMUEL Administration Cefepime HCl 1 gm/ Sodium 100 mls @ 200 mls/hr 08/22/20 21:00 08/23/20 10:16 Chloride IVPB 100 mls Q12HR SAMUEL Administration Azithromycin 500 mg/ Sodium 250 mls @ 250 mls/hr 08/23/20 02:00 08/23/20 01:28 Chloride IVPB 250 mls 0200 SAMUEL Administration Insulin Human Lispro 0 units 08/22/20 19:39 08/23/20 13:04 Humalog 300 Units/3 Ml Vial SC 3 unit .MILD SLIDING SCALE PRN Administration Mild Correctional Scale Lisinopril 2.5 mg 08/23/20 09:00 08/23/20 10:17 Lisinopril 2.5 Mg Tab PO 2.5 mg DAILY SAMUEL Administration Methylprednisolone Sodium Succinate 40 mg 08/22/20 23:59 08/23/20 12:30 Methylprednisolone Sod Succ 40 Mg Vial IVP 40 mg Q6HR SAMUEL Administration Metoprolol Tartrate 25 mg 08/22/20 21:00 08/23/20 10:18 Metoprolol Tartrate 25 Mg Tab PO 25 mg BID SAMUEL Administration Ondansetron HCl 4 mg 08/22/20 19:15 08/23/20 03:02 Ondansetron Pf 4 Mg/2 Ml Vial IVP 4 mg Q6H PRN Administration Nausea/Vomiting Zinc Sulfate 220 mg 08/23/20 09:00 08/23/20 10:18 Zinc Sulfate 220 Mg Cap PO 220 mg DAILY SAMUEL Administration - Exam General - other findings: Obese Eye: anicteric sclera ENT: moist mucosa Neck: supple, symmetric, no thyromegaly, no lymphadenopathy Heart: RRR, no gallops, no rubs, normal peripheral pulses Respiratory: no rales, no ronchi, normal chest expansion, wheezes Gastrointestinal: soft, non-tender, non-distended, normal bowel sounds Skin: no rashes Psychiatric: normal affect, normal behavior, A&O x 3 Hosp A/P (1) COPD exacerbation Code(s): J44.1 - CHRONIC OBSTRUCTIVE PULMONARY DISEASE W (ACUTE) EXACERBATION Status: Acute (2) COVID-19 virus infection Code(s): U07.1 - COVID-19 Status: Acute (3) Diabetes mellitus, type II Status: Chronic Qualifiers: Diabetes mellitus shelter insulin use: without shelter use Diabetes mellitus complication status: without complication Qualified Code(s): E11.9 - Type 2 diabetes mellitus without complications (4) Hypertension Code(s): I10 - ESSENTIAL (PRIMARY) HYPERTENSION Status: Chronic Qualifiers: Hypertension type: essential hypertension Qualified Code(s): I10 - Essential (primary) hypertension (5) Obesity (BMI 30-39.9) Code(s): E66.9 - OBESITY, UNSPECIFIED Status: Chronic - Plan Patient is a pleasant 60-year-old lady who was admitted to the hospital on August 22, 2020 for COPD exacerbation. She was also found to be Covid positive. She is being treated with cefepime, azithromycin, Solu-Medrol, b ronchodilators, vitamin C and zinc. Blood sugars are high, will switch her to moderate insulin sliding scale. Hypertension is controlled.
[2020-08-23] MEDS: Acetaminophen 325 MG TAB PO PRN (17:43)
[2020-08-23] MEDS: Simethicone Chewable 80 MG TAB PO PRN (21:58)
[2020-08-24] MEDS: Azithromycin 500 MG in Sodium Chloride 0.9% 250 ML 250 ML IVPB SCH (00:40)
[2020-08-24] MEDS: methylPREDNISolone Sod Succ 40 MG VIAL IVP SCH ×4 (00:45→17:13)
[2020-08-24] MEDS: Albuterol 200 PUFF (6.7GM INHALER) INH SCH ×6 (02:22→17:13)
[2020-08-24] MEDS ORDERED: Senokot 8.6 MG TAB PO PRN (08:05)
[2020-08-24] MEDS ORDERED: Loperamide HCl 2 MG CAP PO PRN (08:07)
[2020-08-24] MEDS ORDERED: Benzonatate 100 MG CAP PO PRN (08:07)
[2020-08-24] MEDS ORDERED: hydrALAZINE 20 MG/ML VIAL SLOW IVP PRN (08:07)
[2020-08-24] MEDS ORDERED: Metoclopramide HCl 10 MG/2 ML VIAL IVP PRN (08:07)
[2020-08-24] MEDS ORDERED: Bisacodyl 5 MG TAB PO PRN (08:07)
[2020-08-24] MEDS ORDERED: HYDROcodone/Acetaminophen 5/325 mg Tablet PO PRN (08:07)
[2020-08-24] MEDS ORDERED: Sodium Chloride 0.65% Nasal 44 ML BOT EA NARE PRN (08:07)
[2020-08-24] MEDS ORDERED: Cepastat Lozenges 1 LOZ PO PRN (08:07)
[2020-08-24] MEDS ORDERED: Calcium Carbonate 500 MG ChewTAB PO PRN (08:07)
[2020-08-24] MEDS ORDERED: Polyethylene Glycol 3350 17 GM Packet PO PRN (08:08)
[2020-08-24] MEDS: Enoxaparin Sodium 40 MG/0.4 ML SYRINGE SC SCH ×2 (09:05→19:49)
[2020-08-24] MEDS: Zinc Sulfate 220 MG CAP PO SCH (09:05)
[2020-08-24] MEDS: guaiFENesin ER 600 MG TAB PO SCH ×2 (09:05→19:50)
[2020-08-24] MEDS: ALPRAZolam 0.25 MG TAB PO SCH ×2 (09:05→19:49)
[2020-08-24] MEDS: Lisinopril 2.5 MG TAB PO SCH (09:05)
[2020-08-24] MEDS: Famotidine 20 MG TAB PO SCH ×2 (09:05→19:50)
[2020-08-24] MEDS: Saccharomyces boulardii 250 MG CAP PO SCH (09:06)
[2020-08-24] MEDS: Ascorbic Acid 500 mg Chewable Tablet PO SCH (09:06)
[2020-08-24] MEDS: Metoprolol Tartrate 25 MG TAB PO SCH ×2 (09:06→19:50)
[2020-08-24] MEDS: HumaLOG 300 UNITS/3 ML VIAL SC PRN ×2 (11:31→20:39)
[2020-08-24] MEDS: Cefepime 1 GM in Sodium Chloride 0.9% 100 ML IVPB SCH ×2 (11:31→20:08)
--- NOTE | 2020-08-24 11:31 | PDOC.HOSPP ---
- Subjective Encounter Date: 08/24/20 Encounter Time: 08:30 - Objective Vital Signs & Weight: Vital Signs (12 hours) Temp Pulse Resp BP Pulse Ox 08/24/20 10:45 97.5 F L 77 20 117/58 L 95 08/24/20 08:07 97.3 F L 85 20 120/59 L 92 L 08/24/20 02:22 97.8 F 59 L 19 112/53 L 95 Weight Weight 175 lb 9.6 oz I&O: 08/23/20 08/24/20 08/25/20 06:59 06:59 06:59 Intake Total 640 160 Output Total 625 600 Balance 15 -440 Result Diagrams: 08/23/20 05:03 08/23/20 05:04 Additional Labs: Accuchecks 08/24/20 08/24/20 08/23/20 10:47 06:30 20:46 POC Glucose 265 H 184 H 232 H 08/23/20 08/23/20 16:08 12:45 POC Glucose 184 H 210 H Hospitalist ROS - Review of Systems Constitutional: reports: weakness, malaise. denies: fever, chills, sweats, other ENT: denies: ear pain, ear discharge, nose pain, nose discharge, nose congestion, mouth pain, mouth swelling, throat pain, throat swelling, other Respiratory: reports: shortness of breath, SOB with excertion. denies: cough, dry, hemoptysis, pleuritic pain, sputum, wheezing, other Cardiovascular: denies: chest pain, palpitations, orthopnea, paroxysmal noc. dyspnea, edema, light headedness, other Gastrointestinal: denies: nausea, vomiting, abdominal pain, diarrhea, constipation, melena, hematochezia, other Genitourinary: denies: dysuria, frequency, incontinence, hematuria, retention, other Musculoskeletal: denies: neck pain, shoulder pain, arm pain, back pain, hand pain, leg pain, foot pain, other - Medication Medications: Active Medications Generic Name Dose Route Start Last Admin Trade Name Freq PRN Reason Stop Dose Admin Acetaminophen 650 mg 08/22/20 19:15 08/23/20 17:43 Acetaminophen 325 Mg Tab PO 650 mg Q4H PRN Administration Headache/Fever/Mild Pain (1-3) Albuterol Sulfate 2 puff 08/23/20 02:30 08/24/20 06:05 Albuterol 200 Puff (6.7gm Inhaler) INH 2 puff [id number] SAMUEL Administration Alprazolam 0.25 mg 08/22/20 09:00 08/24/20 09:05 Alprazolam 0.25 Mg Tab PO 0.25 mg BID SAMUEL Administration Ascorbic Acid 1,000 mg 08/23/20 09:00 08/24/20 09:06 Ascorbic Acid 500 Mg Chewable Tablet PO 1,000 mg DAILY SAMUEL Administration Enoxaparin Sodium 40 mg 08/22/20 21:00 08/24/20 09:05 Enoxaparin Sodium 40 Mg/0.4 Ml Syringe SC 40 mg 09,2099 SAMUEL Administration Famotidine 20 mg 08/22/20 21:00 08/24/20 09:05 Famotidine 20 Mg Tab PO 20 mg BID SAMUEL Administration Guaifenesin 600 mg 08/24/20 09:00 08/24/20 09:05 Guaifenesin Er 600 Mg Tab PO 600 mg Q12HR SAMUEL Administration Cefepime HCl 1 gm/ Sodium 100 mls @ 200 mls/hr 08/22/20 21:00 08/23/20 21:41 Chloride IVPB 100 mls Q12HR SAMUEL Administration Azithromycin 500 mg/ Sodium 250 mls @ 250 mls/hr 08/23/20 02:00 08/24/20 00:40 Chloride IVPB 250 mls 0200 SAMUEL Administration Insulin Human Lispro 0 units 08/23/20 16:01 08/23/20 17:45 Humalog 300 Units/3 Ml Vial SC 2 unit .MODERATE SLIDING SC PRN Administration Moderate Correctional Scale Lisinopril 2.5 mg 08/23/20 09:00 08/24/20 09:05 Lisinopril 2.5 Mg Tab PO 2.5 mg DAILY SAMUEL Administration Methylprednisolone Sodium Succinate 40 mg 08/22/20 23:59 08/24/20 05:56 Methylprednisolone Sod Succ 40 Mg Vial IVP 40 mg Q6HR SAMUEL Administration Metoprolol Tartrate 25 mg 08/22/20 21:00 08/24/20 09:06 Metoprolol Tartrate 25 Mg Tab PO 25 mg BID SAMUEL Administration Ondansetron HCl 4 mg 08/22/20 19:15 08/23/20 21:58 Ondansetron Pf 4 Mg/2 Ml Vial IVP 4 mg Q6H PRN Administration Nausea/Vomiting Saccharomyces Boulardii 250 mg 08/24/20 09:00 08/24/20 09:06 Saccharomyces Boulardii 250 Mg Cap PO 250 mg DAILY SAMUEL Administration Simethicone 80 mg 08/23/20 11:43 08/23/20 21:58 Simethicone Chewable 80 Mg Tab PO 80 mg TIDPRN PRN Administration Gas Pain Zinc Sulfate 220 mg 08/23/20 09:00 08/24/20 09:05 Zinc Sulfate 220 Mg Cap PO 220 mg DAILY SAMUEL Administration - Exam General Appearance: NAD, awake alert Eye: PERRL, anicteric sclera ENT: normocephalic atraumatic, no oropharyngeal lesions Neck: symmetric, no JVD Heart: RRR, no murmur, no gallops, no rubs, normal peripheral pulses Respiratory: wheezes Gastrointestinal: soft, non-tender, non-distended, normal bowel sounds Gastrointestinal - other findings: Left lower quadrant colostomy Extremities: no cyanosis, no clubbing Skin: normal turgor, no lesions Neurological: no focal deficits Musculoskeletal: normal tone, normal strength Psychiatric: normal affect, normal behavior Hosp A/P (1) COVID-19 virus infection Code(s): U07.1 - COVID-19 Status: Acute (2) Acute on chronic respiratory failure with hypoxemia Code(s): J96.21 - ACUTE AND CHRONIC RESPIRATORY FAILURE WITH HYPOXIA Status: Acute (3) COPD exacerbation Code(s): J44.1 - CHRONIC OBSTRUCTIVE PULMONARY DISEASE W (ACUTE) EXACERBATION Status: Acute (4) Anemia, normocytic normochromic Code(s): D64.9 - ANEMIA, UNSPECIFIED Status: Chronic (5) Diabetes mellitus, type II Status: Chronic Qualifiers: Diabetes mellitus construction inspector insulin use: without retirement use Diabetes mellitus complication status: without complication Qualified Code(s): E11.9 - Type 2 diabetes mellitus without complications (6) Hypertension Code(s): I10 - ESSENTIAL (PRIMARY) HYPERTENSION Status: Chronic Qualifiers: Hypertension type: essential hypertension Qualified Code(s): I10 - Essential (primary) hypertension (7) Obesity (BMI 30-39.9) Code(s): E66.9 - OBESITY, UNSPECIFIED Status: Chronic (8) Tobacco abuse Code(s): Z72.0 - TOBACCO USE Status: Chronic - Plan old records reviewed/req, continue antibiotics, respiratory therapy Continue Solu-Medrol 40 mg IV q. 6 hourly Continue cefepime and azithromycin Continue oxygen as tolerated to keep saturation above 92% Pulmonology has been consulted Increase moderate sliding scale insulin Add Dulera, continue albuterol inhaler Add Mucinex Continue her home medication
[2020-08-24] MEDS: Simethicone Chewable 80 MG TAB PO PRN (13:36)
--- NOTE | 2020-08-24 17:33 | PRG ---
DATE OF SERVICE: 08/24/2020 SUBJECTIVE: Batsheva Werner is a 60-year-old female, who was recently discharged from the hospital. She is back in with a rapid screen that is positive for COVID. Her only complaint is shortness of breath. She has had no hemoptysis. It is interesting to note that she had a CT pulmonary angiogram done in [place] on the , which did not show pulmonary infiltrates suggesting that either COVID is an incidental finding or this is a false-positive test. She has very severe chronic obstructive pulmonary disease and was recently hospitalized and discharged on 08/05. She says she has not been out of the house. Past medical history, family history, social history are well documented in the last set of notes. PHYSICAL EXAMINATION: GENERAL: She is afebrile. Heart rate 77, respiratory rate 20, oximetry is 95% on 3 L cannula. She has oxygen at home. She is usually on 2 to 3 L a minute. Blood pressure 117/58. HEAD AND NECK: Unremarkable. LUNGS: Remarkable for distant breath sounds. HEART: Regular rhythm. ABDOMEN: Soft. EXTREMITIES: Without asymmetry or edema. DIAGNOSTIC STUDIES: CT angiogram was negative for embolic disease. Potassium is 5.2, creatinine is 1.1, glucose was 247 yesterday morning. There is no CBC today. IMPRESSION AND PLAN: Chronic obstructive pulmonary disease with ongoing bronchospasm. It is unclear whether this COVID is an incidental finding or actually the beginning of a more severe illness. She certainly had nothing on her CAT scan and her gas exchange is probably near her baseline. We will look in on her while she is in the hospital. There is no change in management indicated at this point in time. This was a 50 min consult with greater than 50% of the time spent on the unit with coordination of care. Job ID: [id number] [facility]acey
[2020-08-24] MEDS: Milk Of Magnesia 30 ML UDCUP PO PRN (18:25)
[2020-08-24] MEDS: Mometasone 200 MCG/Formoterol 5 MCG 120 PUFF INHALER INH SCH (18:26)
[2020-08-25] MEDS: methylPREDNISolone Sod Succ 40 MG VIAL IVP SCH ×4 (00:24→21:29)
[2020-08-25] MEDS: Albuterol 200 PUFF (6.7GM INHALER) INH SCH ×7 (00:41→21:30)
[2020-08-25] MEDS: Azithromycin 500 MG in Sodium Chloride 0.9% 250 ML 250 ML IVPB SCH (03:16)
[2020-08-25 04:50] LABS: #Eosinphils 0.1 thou/uL (0.0-0.7); #Lymphocytes 0.6 thou/uL (1.20-3.40); #Monocytes 0.7 thou/uL (0.11-0.59); #Neutrophils 11.1 thou/uL (1.40-6.50); %Eosinophils 0.5 % (0.0-10.0); %Monocytes 5.5 % (0.0-10.0); Hemoglobin 12.2 g/dL (12.0-16.0); Mean Corpuscular Hemoglobin 29.7 pg (27.0-31.0); Mean Corpuscular Volume 92.9 fL (78.0-98.0); Platelet Count 330 thou/uL (130-400); RBC Distribution Width 13.1 % (11.5-14.5); Red Blood Cell (RBC) Count 4.09 mill/uL (4.20-5.40); White Blood Cell (WBC) Count 12.5 thou/uL (4.8-10.8)
[2020-08-25 05:13] LABS: ALT (SGPT) 32 U/L (8-55); AST (SGOT) 17 U/L (5-34); Albumin 3.5 g/dL (3.5-5.0); Alkaline Phosphatase 55 U/L (40-110); Anion Gap 15 mmol/L (10-20); BUN (Urea Nitrogen) 20 mg/dL (9.8-20.1); Bilirubin, Total 0.2 mg/dL (0.2-1.2); Calc. Creatinine Clearance 86 mL/min (70-130); Calcium 8.8 mg/dL (7.8-10.44); Carbon Dioxide 24 mmol/L (22-29); Chloride 99 mmol/L (98-107); Estimated GFR-MDRD 65; Globulin 3.2 g/dL (2.4-3.5); Glucose 314 mg/dL (70-105); Potassium 5.1 mmol/L (3.5-5.1); Protein, Total 6.7 g/dL (6.0-8.3); Sodium 133 mmol/L (136-145)
[2020-08-25] MEDS: Mometasone 200 MCG/Formoterol 5 MCG 120 PUFF INHALER INH SCH ×2 (05:27→18:30)
[2020-08-25] MEDS: HumaLOG 300 UNITS/3 ML VIAL SC PRN ×2 (05:33→12:24)
[2020-08-25] MEDS: Zinc Sulfate 220 MG CAP PO SCH (09:55)
[2020-08-25] MEDS: guaiFENesin ER 600 MG TAB PO SCH ×2 (09:55→20:47)
[2020-08-25] MEDS: Lisinopril 2.5 MG TAB PO SCH (09:55)
[2020-08-25] MEDS: Famotidine 20 MG TAB PO SCH ×2 (09:55→20:47)
[2020-08-25] MEDS: Enoxaparin Sodium 40 MG/0.4 ML SYRINGE SC SCH ×2 (09:55→20:47)
[2020-08-25] MEDS: Ascorbic Acid 500 mg Chewable Tablet PO SCH (09:55)
[2020-08-25] MEDS: Saccharomyces boulardii 250 MG CAP PO SCH (09:55)
[2020-08-25] MEDS: Metoprolol Tartrate 25 MG TAB PO SCH ×2 (09:56→20:47)
[2020-08-25] MEDS: ALPRAZolam 0.25 MG TAB PO SCH ×2 (09:56→20:49)
--- NOTE | 2020-08-25 10:19 | PDOC.HOSPP ---
- Subjective Encounter Date: 08/25/20 Encounter Time: 08:20 Subjective: Patient is feeling shortness of breath with little exertion, her oxygen saturation drops with exertion, otherwise she is feeling okay - Objective Vital Signs & Weight: Vital Signs (12 hours) Temp Pulse Resp BP Pulse Ox 08/25/20 03:25 97.9 F 77 17 130/59 L 93 L 08/25/20 00:40 98.6 F 72 20 121/59 L 97 Weight Weight 175 lb 9.6 oz I&O: 08/24/20 08/25/20 08/26/20 06:59 06:59 06:59 Intake Total 160 360 Output Total 600 1350 Balance -440 -990 Result Diagrams: 08/25/20 04:33 08/25/20 04:33 Additional Labs: Accuchecks 08/24/20 08/24/20 08/24/20 20:33 16:49 10:47 POC Glucose 253 H 145 H 265 H EKG Reviewed by me: Yes Hospitalist ROS - Review of Systems Respiratory: reports: shortness of breath, SOB with excertion. denies: cough, dry, hemoptysis, pleuritic pain, sputum, wheezing, other Cardiovascular: denies: chest pain, palpitations, orthopnea, paroxysmal noc. dyspnea, edema, light headedness, other Gastrointestinal: denies: nausea, vomiting, abdominal pain, diarrhea, constipation, melena, hematochezia, other Genitourinary: denies: dysuria, frequency, incontinence, hematuria, retention, other Musculoskeletal: denies: neck pain, shoulder pain, arm pain, back pain, hand pain, leg pain, foot pain, other - Medication Medications: Active Medications Generic Name Dose Route Start Last Admin Trade Name Freq PRN Reason Stop Dose Admin Acetaminophen 650 mg 08/22/20 19:15 08/23/20 17:43 Acetaminophen 325 Mg Tab PO 650 mg Q4H PRN Administration Headache/Fever/Mild Pain (1-3) Albuterol Sulfate 2 puff 08/23/20 02:30 08/25/20 05:27 Albuterol 200 Puff (6.7gm Inhaler) INH 2 puff [id number] SAMUEL Administration Alprazolam 0.25 mg 08/22/20 09:00 08/25/20 09:56 Alprazolam 0.25 Mg Tab PO 0.25 mg BID SAMUEL Administration Ascorbic Acid 1,000 mg 08/23/20 09:00 08/25/20 09:55 Ascorbic Acid 500 Mg Chewable Tablet PO 1,000 mg DAILY SAMUEL Administration Enoxaparin Sodium 40 mg 08/22/20 21:00 08/25/20 09:55 Enoxaparin Sodium 40 Mg/0.4 Ml Syringe SC 40 mg 0900,2100 SAMUEL Administration Famotidine 20 mg 08/22/20 21:00 08/25/20 09:55 Famotidine 20 Mg Tab PO 20 mg BID SAMUEL Administration Guaifenesin 600 mg 08/24/20 09:00 08/25/20 09:55 Guaifenesin Er 600 Mg Tab PO 600 mg Q12HR SAMUEL Administration Cefepime HCl 1 gm/ Sodium 100 mls @ 200 mls/hr 08/22/20 21:00 08/24/20 20:08 Chloride IVPB 100 mls Q12HR SAMUEL Administration Azithromycin 500 mg/ Sodium 250 mls @ 250 mls/hr 08/23/20 02:00 08/25/20 03:16 Chloride IVPB 250 mls 0200 SAMUEL Administration Insulin Human Lispro 0 units 08/23/20 16:01 08/25/20 05:33 Humalog 300 Units/3 Ml Vial SC 8 unit .MODERATE SLIDING SC PRN Administration Moderate Correctional Scale Lisinopril 2.5 mg 08/23/20 09:00 08/25/20 09:55 Lisinopril 2.5 Mg Tab PO 2.5 mg DAILY SAMUEL Administration Magnesium Hydroxide 30 ml 08/24/20 17:41 08/24/20 18:25 Milk Of Magnesia 30 Ml Udcup PO 30 ml Q6H PRN Administration Constipation Metoprolol Tartrate 25 mg 08/22/20 21:00 08/25/20 09:56 Metoprolol Tartrate 25 Mg Tab PO 25 mg BID SAMUEL Administration Mometasone Furoate/Formoterol Fumar 2 puff 08/24/20 18:30 08/25/20 05:27 Mometasone 200 Mcg/Formoterol 5 Mcg 120 Puff Inhaler INH 2 puff BID-RT SAMUEL Administration Ondansetron HCl 4 mg 08/22/20 19:15 08/23/20 21:58 Ondansetron Pf 4 Mg/2 Ml Vial IVP 4 mg Q6H PRN Administration Nausea/Vomiting Saccharomyces Boulardii 250 mg 08/24/20 09:00 08/25/20 09:55 Saccharomyces Boulardii 250 Mg Cap PO 250 mg DAILY SAMUEL Administration Simethicone 80 mg 08/23/20 11:43 08/24/20 13:36 Simethicone Chewable 80 Mg Tab PO 80 mg TIDPRN PRN Administration Gas Pain Zinc Sulfate 220 mg 08/23/20 09:00 08/25/20 09:55 Zinc Sulfate 220 Mg Cap PO 220 mg DAILY SAMUEL Administration - Exam General Appearance: NAD, awake alert Eye: PERRL, anicteric sclera ENT: normocephalic atraumatic, no oropharyngeal lesions Neck: supple, symmetric, no JVD, no thyromegaly Heart: no murmur, no gallops, no rubs Respiratory: no wheezes, no rales, no ronchi Gastrointestinal: soft, non-tender, non-distended, normal bowel sounds Gastrointestinal - other findings: Colostomy in place Extremities: no clubbing, no edema Skin: normal turgor, no lesions Neurological: no focal deficits Musculoskeletal: normal tone, normal strength Psychiatric: normal affect, normal behavior Hosp A/P (1) COVID-19 virus infection Code(s): U07.1 - COVID-19 Status: Acute (2) Acute on chronic respiratory failure with hypoxemia Code(s): J96.21 - ACUTE AND CHRONIC RESPIRATORY FAILURE WITH HYPOXIA Status: Acute (3) COPD exacerbation Code(s): J44.1 - CHRONIC OBSTRUCTIVE PULMONARY DISEASE W (ACUTE) EXACERBATION Status: Acute (4) Anemia, normocytic normochromic Code(s): D64.9 - ANEMIA, UNSPECIFIED Status: Chronic (5) Diabetes mellitus, type II Status: Chronic Qualifiers: Diabetes mellitus nursing home insulin use: without nursing home use Diabetes mellitus complication status: without complication Qualified Code(s): E11.9 - Type 2 diabetes mellitus without complications (6) Hypertension Code(s): I10 - ESSENTIAL (PRIMARY) HYPERTENSION Status: Chronic Qualifiers: Hypertension type: essential hypertension Qualified Code(s): I10 - Essential (primary) hypertension (7) Obesity (BMI 30-39.9) Code(s): E66.9 - OBESITY, UNSPECIFIED Status: Chronic (8) Tobacco abuse Code(s): Z72.0 - TOBACCO USE Status: Chronic - Plan old records reviewed/req, continue antibiotics, respiratory therapy Change Solu-Medrol 40 mg IV every 8 hourly Continue cefepime and azithromycin Continue oxygen as tolerated to keep saturation above 92% Currently patient is on optimum COPD treatment, including Solu-Medrol, empiric antibiotic, Mucinex, albuterol, Dulera Patient needs more time to go to back to baseline level
[2020-08-25] MEDS: Cefepime 1 GM in Sodium Chloride 0.9% 100 ML IVPB SCH ×2 (12:23→20:46)
[2020-08-25] MEDS ORDERED: Nystatin 100,000 Units/mL UDCUP SSW SCH (13:00)
[2020-08-25] MEDS: Nystatin 500,000 UNITS/5 ML UDCUP SSW SCH ×3 (14:25→20:47)
[2020-08-25] MEDS: Acetaminophen 325 MG TAB PO PRN (21:27)
[2020-08-25] MEDS: Loratadine 10 MG TAB PO PRN (22:44)
[2020-08-26] MEDS: Azithromycin 500 MG in Sodium Chloride 0.9% 250 ML 250 ML IVPB SCH (00:58)
[2020-08-26] MEDS: Albuterol 200 PUFF (6.7GM INHALER) INH SCH ×6 (01:20→21:20)
[2020-08-26] MEDS: methylPREDNISolone Sod Succ 40 MG VIAL IVP SCH ×3 (05:47→21:15)
[2020-08-26] MEDS: Mometasone 200 MCG/Formoterol 5 MCG 120 PUFF INHALER INH SCH ×2 (05:47→18:12)
[2020-08-26] MEDS: HumaLOG 300 UNITS/3 ML VIAL SC PRN ×3 (05:59→18:12)
[2020-08-26] MEDS: Famotidine 20 MG TAB PO SCH ×2 (09:48→20:11)
[2020-08-26] MEDS: Zinc Sulfate 220 MG CAP PO SCH (09:48)
[2020-08-26] MEDS: Lisinopril 2.5 MG TAB PO SCH (09:48)
[2020-08-26] MEDS: ALPRAZolam 0.25 MG TAB PO SCH ×2 (09:48→20:10)
[2020-08-26] MEDS: guaiFENesin ER 600 MG TAB PO SCH ×2 (09:48→20:12)
[2020-08-26] MEDS: Nystatin 500,000 UNITS/5 ML UDCUP SSW SCH ×4 (09:48→20:12)
[2020-08-26] MEDS: Metoprolol Tartrate 25 MG TAB PO SCH ×2 (09:49→20:12)
[2020-08-26] MEDS: Saccharomyces boulardii 250 MG CAP PO SCH (09:49)
[2020-08-26] MEDS: Cefepime 1 GM in Sodium Chloride 0.9% 100 ML IVPB SCH ×2 (09:49→20:10)
[2020-08-26] MEDS: Enoxaparin Sodium 40 MG/0.4 ML SYRINGE SC SCH ×2 (09:52→20:11)
[2020-08-26] MEDS: Loratadine 10 MG TAB PO PRN ×2 (10:02→16:05)
[2020-08-26] MEDS: Acetaminophen 325 MG TAB PO PRN (10:02)
[2020-08-26] MEDS: Ascorbic Acid 500 mg Chewable Tablet PO SCH (10:03)
--- NOTE | 2020-08-26 10:23 | PDOC.HOSPP ---
- Subjective Encounter Date: 08/26/20 Encounter Time: 08:20 Subjective: Patient is complaining of nasal and sinus congestion, she has sinus pressure, patient subjectively feels very weak, per patient even after little exertion she gets out of breath, today patient is requesting her to go to alf home upon discharge - Objective Vital Signs & Weight: Vital Signs (12 hours) Temp Pulse Resp BP Pulse Ox 08/26/20 03:10 98.0 F 74 21 H 122/57 L 97 08/26/20 01:00 97.9 F 85 20 124/59 L 96 Weight Weight 175 lb 9.6 oz I&O: 08/25/20 08/26/20 08/27/20 06:59 06:59 06:59 Intake Total 360 1070 Output Total 1350 2275 Balance -990 -1205 Result Diagrams: 08/25/20 04:33 08/25/20 04:33 Additional Labs: Accuchecks 08/26/20 08/25/20 08/25/20 05:56 17:20 11:35 POC Glucose 204 H 133 H 201 H EKG Reviewed by me: Yes Hospitalist ROS - Review of Systems Constitutional: reports: weakness. denies: fever, chills, sweats, malaise, other ENT: reports: nose congestion. denies: ear pain, ear discharge, nose pain, nose discharge, mouth pain, mouth swelling, throat pain, throat swelling, other Respiratory: reports: cough, shortness of breath, SOB with excertion. denies: dry, hemoptysis, pleuritic pain, sputum, wheezing, other Cardiovascular: denies: chest pain, palpitations, orthopnea, paroxysmal noc. dyspnea, edema, light headedness, other Gastrointestinal: denies: nausea, vomiting, abdominal pain, diarrhea, constipation, melena, hematochezia, other Genitourinary: denies: dysuria, frequency, incontinence, hematuria, retention, other Musculoskeletal: denies: neck pain, shoulder pain, arm pain, back pain, hand pain, leg pain, foot pain, other - Medication Medications: Active Medications Generic Name Dose Route Start Last Admin Trade Name Freq PRN Reason Stop Dose Admin Acetaminophen 650 mg 08/22/20 19:15 08/26/20 10:02 Acetaminophen 325 Mg Tab PO 650 mg Q4H PRN Administration Headache/Fever/Mild Pain (1-3) Albuterol Sulfate 2 puff 08/23/20 02:30 08/26/20 09:53 Albuterol 200 Puff (6.7gm Inhaler) INH 2 puff [id number] SAMUEL Administration Alprazolam 0.25 mg 08/22/20 09:00 08/26/20 09:48 Alprazolam 0.25 Mg Tab PO 0.25 mg BID SAMUEL Administration Ascorbic Acid 1,000 mg 08/23/20 09:00 08/26/20 10:03 Ascorbic Acid 500 Mg Chewable Tablet PO 1,000 mg DAILY SAMUEL Administration Calcium Carbonate 1,000 mg 08/24/20 08:07 08/25/20 17:18 Calcium Carbonate 500 Mg Chewtab PO 1,000 mg Q4H PRN Administration Heartburn or Indigestion Enoxaparin Sodium 40 mg 08/22/20 21:00 08/26/20 09:52 Enoxaparin Sodium 40 Mg/0.4 Ml Syringe SC 40 mg 09,2100 SAMUEL Administration Famotidine 20 mg 08/22/20 21:00 08/26/20 09:48 Famotidine 20 Mg Tab PO 20 mg BID SAMUEL Administration Guaifenesin 600 mg 08/24/20 09:00 08/26/20 09:48 Guaifenesin Er 600 Mg Tab PO 600 mg Q12HR SAMUEL Administration Cefepime HCl 1 gm/ Sodium 100 mls @ 200 mls/hr 08/22/20 21:00 08/26/20 09:49 Chloride IVPB 100 mls Q12HR SAMUEL Administration Azithromycin 500 mg/ Sodium 250 mls @ 250 mls/hr 08/23/20 02:00 08/26/20 00:58 Chloride IVPB 250 mls 0200 SAMUEL Administration Insulin Human Lispro 0 units 08/23/20 16:01 08/26/20 05:59 Humalog 300 Units/3 Ml Vial SC 4 unit .MODERATE SLIDING SC PRN Administration Moderate Correctional Scale Lisinopril 2.5 mg 08/23/20 09:00 08/26/20 09:48 Lisinopril 2.5 Mg Tab PO 2.5 mg DAILY SAMUEL Administration Loratadine 10 mg 08/24/20 08:07 08/26/20 10:02 Loratadine 10 Mg Tab PO 10 mg DAILYPRN PRN Administration Sinus Symptoms Magnesium Hydroxide 30 ml 08/24/20 17:41 08/24/20 18:25 Milk Of Magnesia 30 Ml Udcup PO 30 ml Q6H PRN Administration Constipation Methylprednisolone Sodium Succinate 40 mg 08/25/20 14:00 08/26/20 05:47 Methylprednisolone Sod Succ 40 Mg Vial IVP 40 mg Q8HR SAMUEL Administration Metoprolol Tartrate 25 mg 08/22/20 21:00 08/26/20 09:49 Metoprolol Tartrate 25 Mg Tab PO 25 mg BID SAMUEL Administration Mometasone Furoate/Formoterol Fumar 2 puff 08/24/20 18:30 08/26/20 05:47 Mometasone 200 Mcg/Formoterol 5 Mcg 120 Puff Inhaler INH 2 puff BID-RT SAMUEL Administration Nystatin 500,000 units 08/25/20 13:00 08/26/20 09:48 Nystatin 500,000 Units/5 Ml Udcup SSW 500,000 units QID SAMUEL Administration Ondansetron HCl 4 mg 08/22/20 19:15 08/23/20 21:58 Ondansetron Pf 4 Mg/2 Ml Vial IVP 4 mg Q6H PRN Administration Nausea/Vomiting Saccharomyces Boulardii 250 mg 08/24/20 09:00 08/26/20 09:49 Saccharomyces Boulardii 250 Mg Cap PO 250 mg DAILY SAMUEL Administration Simethicone 80 mg 08/23/20 11:43 08/24/20 13:36 Simethicone Chewable 80 Mg Tab PO 80 mg TIDPRN PRN Administration Gas Pain Sodium Chloride 10 ml 08/25/20 21:00 08/26/20 09:49 Flush - Normal Saline 10 Ml Syringe IVF 10 ml Q12HR SAMUEL Administration Zinc Sulfate 220 mg 08/23/20 09:00 08/26/20 09:48 Zinc Sulfate 220 Mg Cap PO 220 mg DAILY SAMUEL Administration - Exam General Appearance: NAD, awake alert Eye: PERRL, anicteric sclera ENT: normocephalic atraumatic, no oropharyngeal lesions Neck: symmetric, no JVD Heart: RRR, no murmur, no gallops, no rubs Respiratory - other findings: Air entry reduced bilaterally, few end expiratory wheezing heard Gastrointestinal: soft, non-tender, non-distended, normal bowel sounds Gastrointestinal - other findings: Colostomy in place Extremities: no clubbing, no edema Skin: normal turgor, no lesions Neurological: no focal deficits Musculoskeletal: normal tone, normal strength Psychiatric: normal affect, normal behavior Hosp A/P (1) Acute on chronic respiratory failure with hypoxemia Code(s): J96.21 - ACUTE AND CHRONIC RESPIRATORY FAILURE WITH HYPOXIA Status: Acute (2) COVID-19 virus infection Code(s): U07.1 - COVID-19 Status: Acute (3) COPD exacerbation Code(s): J44.1 - CHRONIC OBSTRUCTIVE PULMONARY DISEASE W (ACUTE) EXACERBATION Status: Acute (4) Anemia, normocytic normochromic Code(s): D64.9 - ANEMIA, UNSPECIFIED Status: Chronic (5) Diabetes mellitus, type II Status: Chronic Qualifiers: Diabetes mellitus nursing home insulin use: without remote computer terminal operator use Diabetes mellitus complication status: without complication Qualified Code(s): E11.9 - Type 2 diabetes mellitus without complications (6) Hypertension Code(s): I10 - ESSENTIAL (PRIMARY) HYPERTENSION Status: Chronic Qualifiers: Hypertension type: essential hypertension Qualified Code(s): I10 - Essential (primary) hypertension (7) Obesity (BMI 30-39.9) Code(s): E66.9 - OBESITY, UNSPECIFIED Status: Chronic - Plan old records reviewed/req, continue antibiotics, PT/OT, social insurance administrator, respiratory therapy Plan Continue Solu-Medrol as per current dose Continue cefepime and azithromycin Add Flonase nasal spray daily We will start PT OT today and consider assistant case manager consultation for alf home placement Patient is currently on optimal medical therapy for COPD, patient needs more time to recover given her end-stage of COPD.
[2020-08-26] MEDS: Fluticasone Propionate Nasal Spray 16 gm Bottle NASAL SCH (20:11)
[2020-08-27] MEDS: Azithromycin 500 MG in Sodium Chloride 0.9% 250 ML 250 ML IVPB SCH (03:03)
[2020-08-27] MEDS: Albuterol 200 PUFF (6.7GM INHALER) INH SCH ×6 (03:05→22:07)
[2020-08-27] MEDS: methylPREDNISolone Sod Succ 40 MG VIAL IVP SCH ×3 (05:49→22:07)
[2020-08-27] MEDS: Mometasone 200 MCG/Formoterol 5 MCG 120 PUFF INHALER INH SCH ×2 (05:49→17:42)
[2020-08-27] MEDS: Loratadine 10 MG TAB PO PRN (06:06)
[2020-08-27] MEDS: HumaLOG 300 UNITS/3 ML VIAL SC PRN ×3 (06:07→22:58)
[2020-08-27] MEDS: Lisinopril 2.5 MG TAB PO SCH (07:59)
[2020-08-27] MEDS: Saccharomyces boulardii 250 MG CAP PO SCH (07:59)
[2020-08-27] MEDS: Famotidine 20 MG TAB PO SCH ×2 (07:59→22:05)
[2020-08-27] MEDS: Metoprolol Tartrate 25 MG TAB PO SCH ×2 (07:59→22:05)
[2020-08-27] MEDS: Zinc Sulfate 220 MG CAP PO SCH (07:59)
[2020-08-27] MEDS: Ascorbic Acid 500 mg Chewable Tablet PO SCH (07:59)
[2020-08-27] MEDS: ALPRAZolam 0.25 MG TAB PO SCH ×2 (07:59→22:05)
[2020-08-27] MEDS: guaiFENesin ER 600 MG TAB PO SCH ×2 (08:00→22:06)
[2020-08-27] MEDS: Cefepime 1 GM in Sodium Chloride 0.9% 100 ML IVPB SCH ×2 (08:00→22:05)
[2020-08-27] MEDS: Enoxaparin Sodium 40 MG/0.4 ML SYRINGE SC SCH ×2 (08:01→22:05)
[2020-08-27] MEDS: Nystatin 500,000 UNITS/5 ML UDCUP SSW SCH ×4 (08:01→22:06)
[2020-08-27] MEDS ORDERED: Fluticasone Propionate Nasal Spray 16 gm Bottle NASAL SCH (09:00)
--- NOTE | 2020-08-27 11:02 | PDOC.HOSPP ---
- Subjective Encounter Date: 08/27/20 Encounter Time: 09:00 Subjective: Patient continued to complain of shortness of breath, no overnight event, she is still requiring 3 L nasal cannula oxygen which is up to her baseline, patient is physically very weak, she has not ambulated in her room yet, - Objective Vital Signs & Weight: Vital Signs (12 hours) Temp Pulse Pulse Resp BP BP Pulse Ox 08/27/20 09:15 83 134/63 08/27/20 03:15 97.7 F 76 18 136/75 94 L Pulse Ox 08/27/20 09:15 91 L 08/27/20 03:15 Weight Weight 179 lb 3.2 oz I&O: 08/26/20 08/27/20 08/28/20 06:59 06:59 06:59 Intake Total 1070 1440 Output Total 2275 2200 Balance -1205 -760 Result Diagrams: 08/25/20 04:33 08/25/20 04:33 Additional Labs: Accuchecks 08/27/20 08/26/20 08/26/20 05:55 20:20 16:47 POC Glucose 265 H 205 H 173 H 08/26/20 08/25/20 12:06 21:02 POC Glucose 213 H 186 H EKG Reviewed by me: Yes Hospitalist ROS - Review of Systems Constitutional: reports: weakness, malaise. denies: fever, chills, sweats, other Respiratory: reports: shortness of breath, SOB with excertion. denies: cough, dry, hemoptysis, pleuritic pain, sputum, wheezing, other Cardiovascular: denies: chest pain, palpitations, orthopnea, paroxysmal noc. dyspnea, edema, light headedness, other Gastrointestinal: denies: nausea, vomiting, abdominal pain, diarrhea, constipation, melena, hematochezia, other Genitourinary: denies: dysuria, frequency, incontinence, hematuria, retention, other Musculoskeletal: denies: neck pain, shoulder pain, arm pain, back pain, hand pain, leg pain, foot pain, other - Medication Medications: Active Medications Generic Name Dose Route Start Last Admin Trade Name Freq PRN Reason Stop Dose Admin Acetaminophen 650 mg 08/22/20 19:15 08/26/20 10:02 Acetaminophen 325 Mg Tab PO 650 mg Q4H PRN Administration Headache/Fever/Mild Pain (1-3) Albuterol Sulfate 2 puff 08/23/20 02:30 08/27/20 08:02 Albuterol 200 Puff (6.7gm Inhaler) INH 2 puff [id number] SAMUEL Administration Alprazolam 0.25 mg 08/22/20 09:00 08/27/20 07:59 Alprazolam 0.25 Mg Tab PO 0.25 mg BID SAMUEL Administration Ascorbic Acid 1,000 mg 08/23/20 09:00 08/27/20 07:59 Ascorbic Acid 500 Mg Chewable Tablet PO 1,000 mg DAILY SAMUEL Administration Calcium Carbonate 1,000 mg 08/24/20 08:07 08/25/20 17:18 Calcium Carbonate 500 Mg Chewtab PO 1,000 mg Q4H PRN Administration Heartburn or Indigestion Enoxaparin Sodium 40 mg 08/22/20 21:00 08/27/20 08:01 Enoxaparin Sodium 40 Mg/0.4 Ml Syringe SC 40 mg 0900,2100 SAMUEL Administration Famotidine 20 mg 08/22/20 21:00 08/27/20 07:59 Famotidine 20 Mg Tab PO 20 mg BID SAMUEL Administration Fluticasone Propionate 0 gm 08/26/20 21:00 08/26/20 20:11 Fluticasone Propionate Nasal [place] 16 Gm Bottle NASAL 2 spray HS SAMUEL Administration Guaifenesin 600 mg 08/24/20 09:00 08/27/20 08:00 Guaifenesin Er 600 Mg Tab PO 600 mg Q12HR SAMUEL Administration Cefepime HCl 1 gm/ Sodium 100 mls @ 200 mls/hr 08/22/20 21:00 08/27/20 08:00 Chloride IVPB 100 mls Q12HR SAMUEL Administration Azithromycin 500 mg/ Sodium 250 mls @ 250 mls/hr 08/23/20 02:00 08/27/20 03:03 Chloride IVPB 250 mls 0200 SAMUEL Administration Insulin Human Lispro 0 units 08/23/20 16:01 08/27/20 06:07 Humalog 300 Units/3 Ml Vial SC 6 unit .MODERATE SLIDING SC PRN Administration Moderate Correctional Scale Lisinopril 2.5 mg 08/23/20 09:00 08/27/20 07:59 Lisinopril 2.5 Mg Tab PO 2.5 mg DAILY SAMUEL Administration Loratadine 10 mg 08/24/20 08:07 08/27/20 06:06 Loratadine 10 Mg Tab PO 10 mg DAILYPRN PRN Administration Sinus Symptoms Magnesium Hydroxide 30 ml 08/24/20 17:41 08/24/20 18:25 Milk Of Magnesia 30 Ml Udcup PO 30 ml Q6H PRN Administration Constipation Methylprednisolone Sodium Succinate 40 mg 08/25/20 14:00 08/27/20 05:49 Methylprednisolone Sod Succ 40 Mg Vial IVP 40 mg Q8HR SAMUEL Administration Metoprolol Tartrate 25 mg 08/22/20 21:00 08/27/20 07:59 Metoprolol Tartrate 25 Mg Tab PO 25 mg BID SAMUEL Administration Mometasone Furoate/Formoterol Fumar 2 puff 08/24/20 18:30 08/27/20 05:49 Mometasone 200 Mcg/Formoterol 5 Mcg 120 Puff Inhaler INH 2 puff BID-RT SAMUEL Administration Nystatin 500,000 units 08/25/20 13:00 08/27/20 08:01 Nystatin 500,000 Units/5 Ml Udcup SSW 500,000 units QID SAMUEL Administration Ondansetron HCl 4 mg 08/22/20 19:15 08/23/20 21:58 Ondansetron Pf 4 Mg/2 Ml Vial IVP 4 mg Q6H PRN Administration Nausea/Vomiting Saccharomyces Boulardii 250 mg 08/24/20 09:00 08/27/20 07:59 Saccharomyces Boulardii 250 Mg Cap PO 250 mg DAILY SAMUEL Administration Simethicone 80 mg 08/23/20 11:43 08/24/20 13:36 Simethicone Chewable 80 Mg Tab PO 80 mg TIDPRN PRN Administration Gas Pain Sodium Chloride 10 ml 08/25/20 21:00 08/27/20 08:01 Flush - Normal Saline 10 Ml Syringe IVF 10 ml Q12HR SAMUEL Administration Zinc Sulfate 220 mg 08/23/20 09:00 08/27/20 07:59 Zinc Sulfate 220 Mg Cap PO 220 mg DAILY SAMUEL Administration - Exam General Appearance: NAD, awake alert Eye: PERRL, anicteric sclera ENT: normocephalic atraumatic, no oropharyngeal lesions Neck: supple, symmetric, no JVD Heart: RRR, no murmur, no gallops, no rubs Respiratory: no tachypnea Respiratory - other findings: Q end expiratory wheezing heard, air entry improving, no rales Gastrointestinal: soft, non-tender, non-distended, normal bowel sounds Gastrointestinal - other findings: Colostomy in place Extremities: no clubbing, no edema Skin: normal turgor, no lesions Neurological: no focal deficits Musculoskeletal: normal tone, normal strength Psychiatric: normal affect, normal behavior Hosp A/P (1) Acute on chronic respiratory failure with hypoxemia Code(s): J96.21 - ACUTE AND CHRONIC RESPIRATORY FAILURE WITH HYPOXIA Status: Acute (2) COVID-19 virus infection Code(s): U07.1 - COVID-19 Status: Acute (3) COPD exacerbation Code(s): J44.1 - CHRONIC OBSTRUCTIVE PULMONARY DISEASE W (ACUTE) EXACERBATION Status: Acute (4) Anemia, normocytic normochromic Code(s): D64.9 - ANEMIA, UNSPECIFIED Status: Chronic (5) Diabetes mellitus, type II Status: Chronic Qualifiers: Diabetes mellitus fci insulin use: without fci use Diabetes mellitus complication status: without complication Qualified Code(s): E11.9 - Type 2 diabetes mellitus without complications (6) Hypertension Code(s): I10 - ESSENTIAL (PRIMARY) HYPERTENSION Status: Chronic Qualifiers: Hypertension type: essential hypertension Qualified Code(s): I10 - Essen tial (primary) hypertension (7) Obesity (BMI 30-39.9) Code(s): E66.9 - OBESITY, UNSPECIFIED Status: Chronic - Plan old records reviewed/req, continue antibiotics Plan Continue Solu-Medrol Discontinue azithromycin Continue cefepime, I have reviewed her current medication and patient is overall stable and slowly improving, Patient needs aggressive physical therapy here in hospital to decide whether she will be okay to go home or she will need any half-way home, We have to also assess her oxygen saturation with activity to decide whether patient is up to her baseline level or not, I have conveyed these to charge nurse. Discharge plan to either home if patient is making progress otherwise she will benefit from half-way home placement. Patient will need longer steroid taper upon discharge
[2020-08-27] MEDS: Milk Of Magnesia 30 ML UDCUP PO PRN (12:39)
[2020-08-27] MEDS: Fluticasone Propionate Nasal Spray 16 gm Bottle NASAL SCH (22:06)
[2020-08-27] MEDS: Acetaminophen 325 MG TAB PO PRN (23:03)
[2020-08-28] MEDS: Albuterol 200 PUFF (6.7GM INHALER) INH SCH ×6 (06:01→21:20)
[2020-08-28] MEDS: methylPREDNISolone Sod Succ 40 MG VIAL IVP SCH ×2 (06:01→13:02)
[2020-08-28] MEDS: Mometasone 200 MCG/Formoterol 5 MCG 120 PUFF INHALER INH SCH (06:02)
[2020-08-28] MEDS: HumaLOG 300 UNITS/3 ML VIAL SC PRN ×5 (06:21→22:17)
[2020-08-28] MEDS: Loratadine 10 MG TAB PO PRN (06:23)
[2020-08-28] MEDS: Cefepime 1 GM in Sodium Chloride 0.9% 100 ML IVPB SCH ×2 (09:19→21:17)
[2020-08-28] MEDS: Zinc Sulfate 220 MG CAP PO SCH (09:20)
[2020-08-28] MEDS: Ascorbic Acid 500 mg Chewable Tablet PO SCH (09:20)
[2020-08-28] MEDS: Saccharomyces boulardii 250 MG CAP PO SCH (09:20)
[2020-08-28] MEDS: Metoprolol Tartrate 25 MG TAB PO SCH ×2 (09:20→21:20)
[2020-08-28] MEDS: guaiFENesin ER 600 MG TAB PO SCH ×2 (09:20→21:19)
[2020-08-28] MEDS: Enoxaparin Sodium 40 MG/0.4 ML SYRINGE SC SCH ×2 (09:21→21:18)
[2020-08-28] MEDS: Nystatin 500,000 UNITS/5 ML UDCUP SSW SCH ×4 (09:21→21:20)
[2020-08-28] MEDS: Famotidine 20 MG TAB PO SCH ×2 (09:21→21:19)
[2020-08-28] MEDS: ALPRAZolam 0.25 MG TAB PO SCH ×2 (09:21→21:17)
[2020-08-28] MEDS: Lisinopril 2.5 MG TAB PO SCH (09:21)
[2020-08-28] MEDS ORDERED: Furosemide 20 MG TAB PO PRN (13:32)
[2020-08-28] MEDS ORDERED: Albuterol 200 PUFF (6.7GM INHALER) INH PRN (13:56)
[2020-08-28] MEDS ORDERED: Pharmacy to Dose REMDESIVIR IVPB PRN (17:51)
--- NOTE | 2020-08-28 17:52 | PDOC.HOSPP ---
- Subjective Encounter Date: 08/28/20 Encounter Time: 11:50 Subjective: Patient up in bed on 4 L nasal cannula desats on minimal exertion. - Objective Vital Signs & Weight: Vital Signs (12 hours) Temp Pulse Resp BP Pulse Ox 08/28/20 17:24 99.5 F 96 20 141/67 H 97 08/28/20 11:17 97.5 F L 78 20 110/51 L 96 08/28/20 09:30 97.1 F L 89 24 H 156/75 H 93 L 08/28/20 09:21 74 Weight Weight 179 lb 3.2 oz I&O: 08/27/20 08/28/20 08/29/20 06:59 06:59 06:59 Intake Total 1440 1300 Output Total 2200 1575 Balance -760 -275 Result Diagrams: 08/25/20 04:33 08/25/20 04:33 Additional Labs: Accuchecks 08/28/20 08/28/20 08/28/20 17:24 11:15 06:07 POC Glucose 171 H 268 H 247 H 08/27/20 22:12 POC Glucose 300 H Hospitalist ROS - Review of Systems Respiratory: reports: shortness of breath Cardiovascular: denies: chest pain, palpitations, orthopnea, paroxysmal noc. dyspnea, edema, light headedness, other Gastrointestinal: denies: nausea, vomiting, abdominal pain, diarrhea, constipation, melena, hematochezia, other Genitourinary: denies: dysuria, frequency, incontinence, hematuria, retention, other - Medication Medications: Active Medications Generic Name Dose Route Start Last Admin Trade Name Freq PRN Reason Stop Dose Admin Acetaminophen 650 mg 08/22/20 19:15 08/27/20 23:03 Acetaminophen 325 Mg Tab PO 650 mg Q4H PRN Administration Headache/Fever/Mild Pain (1-3) Albuterol Sulfate 2 puff 08/23/20 02:30 08/28/20 13:01 Albuterol 200 Puff (6.7gm Inhaler) INH 2 puff [id number] SAMUEL Administration Alprazolam 0.25 mg 08/22/20 09:00 08/28/20 09:21 Alprazolam 0.25 Mg Tab PO 0.25 mg BID SAMUEL Administration Ascorbic Acid 1,000 mg 08/23/20 09:00 08/28/20 09:20 Ascorbic Acid 500 Mg Chewable Tablet PO 1,000 mg DAILY SAMUEL Administration Calcium Carbonate 1,000 mg 08/24/20 08:07 08/25/20 17:18 Calcium Carbonate 500 Mg Chewtab PO 1,000 mg Q4H PRN Administration Heartburn or Indigestion Enoxaparin Sodium 40 mg 08/22/20 21:00 08/28/20 09:21 Enoxaparin Sodium 40 Mg/0.4 Ml Syringe SC 40 mg [id number],2099 SAMUEL Administration Famotidine 20 mg 08/22/20 21:00 08/28/20 09:21 Famotidine 20 Mg Tab PO 20 mg BID SAMUEL Administration Fluticasone Propionate 0 gm 08/26/20 21:00 08/27/20 22:06 Fluticasone Propionate Nasal [place] 16 Gm Bottle NASAL 2 spray HS SAMUEL Administration Guaifenesin 600 mg 08/24/20 09:00 08/28/20 09:20 Guaifenesin Er 600 Mg Tab PO 600 mg Q12HR SAMUEL Administration Cefepime HCl 1 gm/ Sodium 100 mls @ 200 mls/hr 08/22/20 21:00 08/28/20 09:19 Chloride IVPB 100 mls Q12HR SAMUEL Administration Insulin Human Lispro 0 units 08/23/20 16:01 08/28/20 12:52 Humalog 300 Units/3 Ml Vial SC 6 unit .MODERATE SLIDING SC PRN Administration Moderate Correctional Scale Lisinopril 2.5 mg 08/23/20 09:00 08/28/20 09:21 Lisinopril 2.5 Mg Tab PO 2.5 mg DAILY SAMUEL Administration Loratadine 10 mg 08/24/20 08:07 08/28/20 06:23 Loratadine 10 Mg Tab PO 10 mg DAILYPRN PRN Administration Sinus Symptoms Magnesium Hydroxide 30 ml 08/24/20 17:41 08/27/20 12:39 Milk Of Magnesia 30 Ml Udcup PO 30 ml Q6H PRN Administration Constipation Metoprolol Tartrate 25 mg 08/22/20 21:00 08/28/20 09:20 Metoprolol Tartrate 25 Mg Tab PO 25 mg BID SAMUEL Administration Nystatin 500,000 units 08/25/20 13:00 08/28/20 13:01 Nystatin 500,000 Units/5 Ml Udcup SSW 500,000 units QID SAMUEL Administration Ondansetron HCl 4 mg 08/22/20 19:15 08/23/20 21:58 Ondansetron Pf 4 Mg/2 Ml Vial IVP 4 mg Q6H PRN Administration Nausea/Vomiting Saccharomyces Boulardii 250 mg 08/24/20 09:00 08/28/20 09:20 Saccharomyces Boulardii 250 Mg Cap PO 250 mg DAILY SAMUEL Administration Simethicone 80 mg 08/23/20 11:43 08/24/20 13:36 Simethicone Chewable 80 Mg Tab PO 80 mg TIDPRN PRN Administration Gas Pain Sodium Chloride 10 ml 08/25/20 21:00 08/28/20 09:22 Flush - Normal Saline 10 Ml Syringe IVF 10 ml Q12HR SAMUEL Administration Zinc Sulfate 220 mg 08/23/20 09:00 08/28/20 09:20 Zinc Sulfate 220 Mg Cap PO 220 mg DAILY SAMUEL Administration - Exam Heart: negative: RRR, no murmur, no gallops, no rubs, normal peripheral pulses, irregular, diminshed peripheral pulses, murmur present, II/IV, III/IV Respiratory: negative: CTAB, no wheezes, no rales, no ronchi, normal chest expansion, no tachypnea, normal percussion, rales, rhonchi, tachypneic, wheezes Gastrointestinal: negative: soft, non-tender, non-distended, normal bowel sounds, no palpable masses, no hepatomegaly, no splenomegaly, no bruit, no guarding, no rigidity, tender to palpation, distended, diminished bowl sounds, voluntary guarding Extremities: 1+ LE edema Hosp A/P (1) COVID-19 virus infection Code(s): U07.1 - COVID-19 Status: Acute (2) Acute on chronic respiratory failure with hypoxemia Code(s): J96.21 - ACUTE AND CHRONIC RESPIRATORY FAILURE WITH HYPOXIA Status: Acute (3) COPD exacerbation Code(s): J44.1 - CHRONIC OBSTRUCTIVE PULMONARY DISEASE W (ACUTE) EXACERBATION Status: Acute (4) Anemia, normocytic normochromic Code(s): D64.9 - ANEMIA, UNSPECIFIED Status: Chronic (5) Diabetes mellitus, type II Status: Chronic Qualifiers: Diabetes mellitus jail insulin use: without jail use Diabetes mellitus complication status: without complication Qualified Code(s): E11.9 - Type 2 diabetes mellitus without complications (6) Hypertension Code(s): I10 - ESSENTIAL (PRIMARY) HYPERTENSION Status: Chronic Qualifiers: Hypertension type: essential hypertension Qualified Code(s): I10 - Essential (primary) hypertension (7) Obesity (BMI 30-39.9) Code(s): E66.9 - OBESITY, UNSPECIFIED Status: Chronic - Plan We will continue Solu-Medrol. We will also continue IV antibiotics. We will stop vancomycin. Patient does have expiratory wheezing. I have started her home inhalers. She is a candidate for remdesivir will consult pharmacy to see if she is a appropriate candidate. Will check inflammatory markers in the morning. She is currently on 4 L however desats on minimal exertion. Check a BNP in the morning.
[2020-08-28 20:45] LABS: ALT (SGPT) 28 U/L (8-55); AST (SGOT) 17 U/L (5-34); Albumin 3.5 g/dL (3.5-5.0); Alkaline Phosphatase 64 U/L (40-110); Bilirubin, Direct 0.1 mg/dL (0.1-0.3); Bilirubin, Total 0.3 mg/dL (0.2-1.2)
[2020-08-28] MEDS: Mometasone 100 MCG/Formoterol 5 MCG 120 PUFF INHALER INH SCH (21:16)
[2020-08-28] MEDS: Fluticasone Propionate Nasal Spray 16 gm Bottle NASAL SCH (21:19)
[2020-08-28] MEDS: Acetaminophen 325 MG TAB PO PRN (21:21)
[2020-08-29] MEDS: Albuterol 200 PUFF (6.7GM INHALER) INH SCH ×6 (03:17→22:43)
[2020-08-29 05:30] LABS: #Basophils 0.1 thou/uL (0.0-0.2); #Eosinphils 0.4 thou/uL (0.0-0.7); #Lymphocytes 2.2 thou/uL (1.20-3.40); #Monocytes 1.1 thou/uL (0.11-0.59); %Basophils 0.7 % (0.0-1.0); %Eosinophils 3.8 % (0.0-10.0); %Lymphocytes 20.7 % (21.0-51.0); %Monocytes 9.8 % (0.0-10.0); Hemoglobin 13.1 g/dL (12.0-16.0); Mean Corpuscular HGB CONC 31.9 g/dL (32.0-36.0); Mean Corpuscular Hemoglobin 29.1 pg (27.0-31.0); Mean Corpuscular Volume 91.1 fL (78.0-98.0); Mean Platelet Volume 7.1 fL (7.4-10.4); Platelet Count 376 thou/uL (130-400); RBC Distribution Width 13.3 % (11.5-14.5); Red Blood Cell (RBC) Count 4.51 mill/uL (4.20-5.40); White Blood Cell (WBC) Count 10.8 thou/uL (4.8-10.8)
[2020-08-29 05:53] LABS: ALT (SGPT) 28 U/L (8-55); ALT (SGPT) 30 U/L (8-55); AST (SGOT) 16 U/L (5-34); AST (SGOT) 18 U/L (5-34); Albumin 3.4 g/dL (3.5-5.0); Alkaline Phosphatase 57 U/L (40-110); Alkaline Phosphatase 59 U/L (40-110); Anion Gap 13 mmol/L (10-20); BUN (Urea Nitrogen) 28 mg/dL (9.8-20.1); Bilirubin, Direct 0.1 mg/dL (0.1-0.3); Bilirubin, Total 0.2 mg/dL (0.2-1.2); CRP (Inflammatory) 0.74 mg/dL (= or < 0.5); Calc. Creatinine Clearance 87 mL/min (70-130); Calcium 9.3 mg/dL (7.8-10.44); Carbon Dioxide 27 mmol/L (22-29); Chloride 100 mmol/L (98-107); Estimated GFR-MDRD 69; Globulin 3.1 g/dL (2.4-3.5); Glucose 129 mg/dL (70-105); Protein, Total 6.5 g/dL (6.0-8.3); Sodium 136 mmol/L (136-145)
[2020-08-29] MEDS: Mometasone 100 MCG/Formoterol 5 MCG 120 PUFF INHALER INH SCH ×2 (06:40→18:26)
--- NOTE | 2020-08-29 07:49 | RAD ---
RADIOGRAPH CHEST 1 VIEW: DATE: 08/29/2020 HISTORY: 60-year-old female with dyspnea FINDINGS: There is hyperinflation of the lungs, consistent with COPD. There is no evidence of airspace density, , cardiomegaly, pulmonary edema, or pneumothorax. The lateral costophrenic angles are not effaced. IMPRESSION: 1) No acute pulmonary findings. 2) emphysema.
[2020-08-29] MEDS: Famotidine 20 MG TAB PO SCH ×2 (08:29→22:43)
[2020-08-29] MEDS: Zinc Sulfate 220 MG CAP PO SCH (08:29)
[2020-08-29] MEDS: Metoprolol Tartrate 25 MG TAB PO SCH ×2 (08:29→22:43)
[2020-08-29] MEDS: ALPRAZolam 0.25 MG TAB PO SCH ×2 (08:29→22:43)
[2020-08-29] MEDS: Cefepime 1 GM in Sodium Chloride 0.9% 100 ML IVPB SCH (08:29)
[2020-08-29] MEDS: Enoxaparin Sodium 40 MG/0.4 ML SYRINGE SC SCH ×2 (08:29→22:43)
[2020-08-29] MEDS: guaiFENesin ER 600 MG TAB PO SCH ×2 (08:29→22:43)
[2020-08-29] MEDS: Ascorbic Acid 500 mg Chewable Tablet PO SCH (08:29)
[2020-08-29] MEDS: methylPREDNISolone Sod Succ 40 MG VIAL IVP SCH (08:30)
[2020-08-29] MEDS: Saccharomyces boulardii 250 MG CAP PO SCH (08:30)
[2020-08-29] MEDS: Lisinopril 2.5 MG TAB PO SCH (08:30)
[2020-08-29] MEDS: Nystatin 500,000 UNITS/5 ML UDCUP SSW SCH ×4 (08:30→22:44)
[2020-08-29] MEDS: Acetaminophen 325 MG TAB PO PRN ×2 (10:04→22:49)
[2020-08-29] MEDS: Loratadine 10 MG TAB PO PRN (10:05)
--- NOTE | 2020-08-29 14:02 | PDOC.HOSPP ---
- Subjective Encounter Date: 08/29/20 Encounter Time: 11:15 Subjective: pt up in bed still feels sob - Objective Vital Signs & Weight: Vital Signs (12 hours) Temp Pulse Resp BP Pulse Ox 08/29/20 08:00 98.1 F 76 20 122/60 92 L 08/29/20 05:13 94 L 08/29/20 03:13 97.9 F 72 18 92 L Weight Weight 167 lb 11.2 oz I&O: 08/28/20 08/29/20 08/30/20 06:59 06:59 06:59 Intake Total 1300 1980 Output Total 1575 900 Balance -275 1080 Result Diagrams: 08/29/20 04:56 08/29/20 04:56 Additional Labs: Accuchecks 08/29/20 08/28/20 08/28/20 05:14 21:28 17:24 POC Glucose 101 H 290 H 171 H Hospitalist ROS - Review of Systems Respiratory: reports: shortness of breath Cardiovascular: denies: chest pain, palpitations, orthopnea, paroxysmal noc. dyspnea, edema, light headedness, other Gastrointestinal: denies: nausea, vomiting, abdominal pain, diarrhea, constipation, melena, hematochezia, other Genitourinary: denies: dysuria, frequency, incontinence, hematuria, retention, other - Medication Medications: Active Medications Generic Name Dose Route Start Last Admin Trade Name Freq PRN Reason Stop Dose Admin Acetaminophen 650 mg 08/22/20 19:15 08/29/20 10:04 Acetaminophen 325 Mg Tab PO 650 mg Q4H PRN Administration Headache/Fever/Mild Pain (1-3) Albuterol Sulfate 2 puff 08/23/20 02:30 08/29/20 10:03 Albuterol 200 Puff (6.7gm Inhaler) INH 2 puff [id number] SAMUEL Administration Alprazolam 0.25 mg 08/22/20 09:00 08/29/20 08:29 Alprazolam 0.25 Mg Tab PO 0.25 mg BID SAMUEL Administration Ascorbic Acid 1,000 mg 08/23/20 09:00 08/29/20 08:29 Ascorbic Acid 500 Mg Chewable Tablet PO 1,000 mg DAILY SAMUEL Administration Calcium Carbonate 1,000 mg 08/24/20 08:07 08/25/20 17:18 Calcium Carbonate 500 Mg Chewtab PO 1,000 mg Q4H PRN Administration Heartburn or Indigestion Enoxaparin Sodium 40 mg 08/22/20 21:00 08/29/20 08:29 Enoxaparin Sodium 40 Mg/0.4 Ml Syringe SC 40 mg 0900,2100 SAMUEL Administration Famotidine 20 mg 08/22/20 21:00 08/29/20 08:29 Famotidine 20 Mg Tab PO 20 mg BID SAMUEL Administration Fluticasone Propionate 0 gm 08/26/20 21:00 08/28/20 21:19 Fluticasone Propionate Nasal [place] 16 Gm Bottle NASAL 2 spray HS SAMUEL Administration Guaifenesin 600 mg 08/24/20 09:00 08/29/20 08:29 Guaifenesin Er 600 Mg Tab PO 600 mg Q12HR SAMUEL Administration Cefepime HCl 1 gm/ Sodium 100 mls @ 200 mls/hr 08/22/20 21:00 08/29/20 08:29 Chloride IVPB 100 mls Q12HR SAMUEL Administration Insulin Human Lispro 0 units 08/23/20 16:01 08/28/20 18:42 Humalog 300 Units/3 Ml Vial SC 2 unit .MODERATE SLIDING SC PRN Administration Moderate Correctional Scale Insulin Human Lispro 0 units 08/28/20 22:09 08/28/20 22:17 Humalog 300 Units/3 Ml Vial SC 3 unit .BEDTIME SLIDING SC PRN Administration Bedtime Correctional Scale Lisinopril 2.5 mg 08/23/20 09:00 08/29/20 08:30 Lisinopril 2.5 Mg Tab PO 2.5 mg DAILY SAMUEL Administration Loratadine 10 mg 08/24/20 08:07 08/29/20 10:05 Loratadine 10 Mg Tab PO 10 mg DAILYPRN PRN Administration Sinus Symptoms Magnesium Hydroxide 30 ml 08/24/20 17:41 08/27/20 12:39 Milk Of Magnesia 30 Ml Udcup PO 30 ml Q6H PRN Administration Constipation Methylprednisolone Sodium Succinate 40 mg 08/29/20 09:00 08/29/20 08:30 Methylprednisolone Sod Succ 40 Mg Vial IVP 40 mg DAILY SAMUEL Administration Metoprolol Tartrate 25 mg 08/22/20 21:00 08/29/20 08:29 Metoprolol Tartrate 25 Mg Tab PO 25 mg BID SAMUEL Administration Mometasone Furoate/Formoterol Fumar 2 puff 08/28/20 18:30 08/29/20 06:40 Mometasone 100 Mcg/Formoterol 5 Mcg 120 Puff Inhaler INH 2 puff BID-RT SAMUEL Administration Nystatin 500,000 units 08/25/20 13:00 08/29/20 13:02 Nystatin 500,000 Units/5 Ml Udcup SSW 500,000 units QID SAMUEL Administration Ondansetron HCl 4 mg 08/22/20 19:15 08/23/20 21:58 Ondansetron Pf 4 Mg/2 Ml Vial IVP 4 mg Q6H PRN Administration Nausea/Vomiting Saccharomyces Boulardii 250 mg 08/24/20 09:00 08/29/20 08:30 Saccharomyces Boulardii 250 Mg Cap PO 250 mg DAILY SAMUEL Administration Simethicone 80 mg 08/23/20 11:43 08/24/20 13:36 Simethicone Chewable 80 Mg Tab PO 80 mg TIDPRN PRN Administration Gas Pain Sodium Chloride 10 ml 08/25/20 21:00 08/29/20 08:33 Flush - Normal Saline 10 Ml Syringe IVF 10 ml Q12HR SAMUEL Administration Zinc Sulfate 220 mg 08/23/20 09:00 08/29/20 08:29 Zinc Sulfate 220 Mg Cap PO 220 mg DAILY SAMUEL Administration - Exam Heart: negative: RRR, no murmur, no gallops, no rubs, normal peripheral pulses, irregular, diminshed peripheral pulses, murmur present, II/IV, III/IV Respiratory: wheezes Gastrointestinal: negative: soft, non-tender, non-distended, normal bowel sounds, no palpable masses, no hepatomegaly, no splenomegaly, no bruit, no guarding, no rigidity, tender to palpation, distended, diminished bowl sounds, voluntary guarding Hosp A/P (1) COVID-19 virus infection Code(s): U07.1 - COVID-19 Status: Acute (2) Acute on chronic respiratory failure with hypoxemia Code(s): J96.21 - ACUTE AND CHRONIC RESPIRATORY FAILURE WITH HYPOXIA Status: Acute (3) COPD exacerbation Code(s): J44.1 - CHRONIC OBSTRUCTIVE PULMONARY DISEASE W (ACUTE) EXACERBATION Status: Acute (4) Anemia, normocytic normochromic Code(s): D64.9 - ANEMIA, UNSPECIFIED Status: Chronic (5) Diabetes mellitus, type II Status: Chronic Qualifiers: Diabetes mellitus bank guard insulin use: without correction use Diabetes mellitus complication status: without complication Qualified Code(s): E11.9 - Type 2 diabetes mellitus without complications (6) Hypertension Code(s): I10 - ESSENTIAL (PRIMARY) HYPERTENSION Status: Chronic Qualifiers: Hypertension type: essential hypertension Qualified Code(s): I10 - Essential (primary) hypertension (7) Obesity (BMI 30-39.9) Code(s): E66.9 - OBESITY, UNSPECIFIED Status: Chronic - Plan We will continue Solu-Medrol. We will also continue IV antibiotics. We will stop vancomycin. Patient does have expiratory wheezing. I have started her home inhalers. She is a candidate for remdesivir will consult pharmacy to see if she is a appropriate candidate. Will check inflammatory markers in the mo rning. She is currently on 4 L however desats on minimal exertion. Check a BNP in the morning. 08/29 will switch iv abx to oral. will continue steroids for now. pt is on inhalers. BNP normal. she is on remdesivir will continue. She is on dvt ppx.
[2020-08-29] MEDS: Nystatin Powder 15 GM BOT TOP PRN (22:41)
[2020-08-29] MEDS: Fluticasone Propionate Nasal Spray 16 gm Bottle NASAL SCH (22:44)
[2020-08-30] MEDS: Albuterol 200 PUFF (6.7GM INHALER) INH SCH ×6 (02:29→22:35)
[2020-08-30] MEDS: Loratadine 10 MG TAB PO PRN (05:21)
[2020-08-30 05:40] LABS: ALT (SGPT) 32 U/L (8-55); AST (SGOT) 18 U/L (5-34); Albumin 3.4 g/dL (3.5-5.0); Alkaline Phosphatase 60 U/L (40-110); Bilirubin, Direct 0.1 mg/dL (0.1-0.3); Bilirubin, Total 0.2 mg/dL (0.2-1.2); Protein, Total 6.5 g/dL (6.0-8.3)
[2020-08-30] MEDS: Mometasone 100 MCG/Formoterol 5 MCG 120 PUFF INHALER INH SCH ×2 (06:34→18:33)
[2020-08-30] MEDS: ALPRAZolam 0.25 MG TAB PO SCH ×2 (08:31→20:32)
[2020-08-30] MEDS: Ascorbic Acid 500 mg Chewable Tablet PO SCH (08:31)
[2020-08-30] MEDS: Saccharomyces boulardii 250 MG CAP PO SCH (08:32)
[2020-08-30] MEDS: Lisinopril 2.5 MG TAB PO SCH (08:32)
[2020-08-30] MEDS: Enoxaparin Sodium 40 MG/0.4 ML SYRINGE SC SCH ×2 (08:32→20:32)
[2020-08-30] MEDS: Metoprolol Tartrate 25 MG TAB PO SCH ×2 (08:32→20:32)
[2020-08-30] MEDS: Zinc Sulfate 220 MG CAP PO SCH (08:32)
[2020-08-30] MEDS: guaiFENesin ER 600 MG TAB PO SCH ×2 (08:32→20:32)
[2020-08-30] MEDS: Nystatin 500,000 UNITS/5 ML UDCUP SSW SCH ×4 (08:32→20:32)
[2020-08-30] MEDS: methylPREDNISolone Sod Succ 40 MG VIAL IVP SCH (08:33)
[2020-08-30] MEDS: Famotidine 20 MG TAB PO SCH ×2 (08:33→20:32)
[2020-08-30] MEDS: Ondansetron PF 4 MG/2 ML Vial IVP PRN (10:46)
[2020-08-30] MEDS: HumaLOG 300 UNITS/3 ML VIAL SC PRN ×2 (10:49→18:36)
[2020-08-30] MEDS: Acetaminophen 325 MG TAB PO PRN (11:03)
[2020-08-30] MEDS: Nystatin Powder 15 GM BOT TOP PRN (11:05)
[2020-08-30] MEDS ORDERED: Fluconazole 100 MG TAB PO SCH (12:00)
--- NOTE | 2020-08-30 13:01 | PDOC.HOSPP ---
- Subjective Encounter Date: 08/30/20 Encounter Time: 11:00 Subjective: pt up in bed still feels sob - Objective Vital Signs & Weight: Vital Signs (12 hours) Temp Pulse Resp BP Pulse Ox 08/30/20 11:05 98.9 F 80 24 H 100/52 L 95 08/30/20 08:25 98.7 F 98 22 H 123/55 L 94 L 08/30/20 08:20 94 L 08/30/20 04:00 98.0 F 78 21 H 122/73 96 Weight Weight 167 lb 11.2 oz I&O: 08/29/20 08/30/20 08/31/20 06:59 06:59 06:59 Intake Total 1980 1790 Output Total 900 1750 Balance 1080 40 Result Diagrams: 08/29/20 04:56 08/29/20 04:56 Additional Labs: Accuchecks 08/30/20 08/30/20 08/29/20 10:37 05:33 21:51 POC Glucose 201 H 137 H 173 H 08/29/20 08/29/20 16:30 12:19 POC Glucose 204 H 221 H Hospitalist ROS - Review of Systems Respiratory: reports: shortness of breath, SOB with excertion. denies: cough, dry, hemoptysis, pleuritic pain, sputum, wheezing, other Cardiovascular: denies: chest pain, palpitations, orthopnea, paroxysmal noc. dyspnea, edema, light headedness, other Gastrointestinal: denies: nausea, vomiting, abdominal pain, diarrhea, constipation, melena, hematochezia, other - Medication Medications: Active Medications Generic Name Dose Route Start Last Admin Trade Name Perri PRN Reason Stop Dose Admin Acetaminophen 650 mg 08/22/20 19:15 08/30/20 11:03 Acetaminophen 325 Mg Tab PO 650 mg Q4H PRN Administration Headache/Fever/Mild Pain (1-3) Albuterol Sulfate 2 puff 08/23/20 02:30 08/30/20 10:45 Albuterol 200 Puff (6.7gm Inhaler) INH 2 puff [id number] SAMUEL Administration Alprazolam 0.25 mg 08/22/20 09:00 08/30/20 08:31 Alprazolam 0.25 Mg Tab PO 0.25 mg BID SAMUEL Administration Ascorbic Acid 1,000 mg 08/23/20 09:00 08/30/20 08:31 Ascorbic Acid 500 Mg Chewable Tablet PO 1,000 mg DAILY SAMUEL Administration Calcium Carbonate 1,000 mg 08/24/20 08:07 08/25/20 17:18 Calcium Carbonate 500 Mg Chewtab PO 1,000 mg Q4H PRN Administration Heartburn or Indigestion Enoxaparin Sodium 40 mg 08/22/20 21:00 08/30/20 08:32 Enoxaparin Sodium 40 Mg/0.4 Ml Syringe SC 40 mg 0900,2100 SAMUEL Administration Famotidine 20 mg 08/22/20 21:00 08/30/20 08:33 Famotidine 20 Mg Tab PO 20 mg BID SAMUEL Administration Fluticasone Propionate 0 gm 08/26/20 21:00 08/29/20 22:44 Fluticasone Propionate Nasal [place] 16 Gm Bottle NASAL 2 spray HS SAMUEL Administration Guaifenesin 600 mg 08/24/20 09:00 08/30/20 08:32 Guaifenesin Er 600 Mg Tab PO 600 mg Q12HR SAMUEL Administration Remdesivir 100 mg/ Sodium 250 mls @ 250 mls/hr 08/29/20 21:00 08/29/20 22:44 Chloride IV 09/01/20 21:59 250 mls Q24HR SAMUEL Administration Insulin Human Lispro 0 units 08/23/20 16:01 08/30/20 10:49 Humalog 300 Units/3 Ml Vial SC 4 unit .MODERATE SLIDING SC PRN Administration Moderate Correctional Scale Insulin Human Lispro 0 units 08/28/20 22:09 08/28/20 22:17 Humalog 300 Units/3 Ml Vial SC 3 unit .BEDTIME SLIDING SC PRN Administration Bedtime Correctional Scale Levofloxacin 500 mg 08/30/20 06:00 08/30/20 05:21 Levofloxacin 500 Mg Tab PO 500 mg 0600 SAMUEL Administration Lisinopril 2.5 mg 08/23/20 09:00 08/30/20 08:32 Lisinopril 2.5 Mg Tab PO 2.5 mg DAILY SAMUEL Administration Loratadine 10 mg 08/24/20 08:07 08/30/20 05:21 Loratadine 10 Mg Tab PO 10 mg DAILYPRN PRN Administration Sinus Symptoms Magnesium Hydroxide 30 ml 08/24/20 17:41 11/10/20 12:39 Milk Of Magnesia 30 Ml Udcup PO 30 ml Q6H PRN Administration Constipation Methylprednisolone Sodium Succinate 40 mg 08/29/20 09:00 08/30/20 08:33 Methylprednisolone Sod Succ 40 Mg Vial IVP 40 mg DAILY SAMUEL Administration Metoprolol Tartrate 25 mg 08/22/20 21:00 08/30/20 08:32 Metoprolol Tartrate 25 Mg Tab PO 25 mg BID SAMUEL Administration Mometasone Furoate/Formoterol Fumar 2 puff 08/28/20 18:30 08/30/20 06:34 Mometasone 100 Mcg/Formoterol 5 Mcg 120 Puff Inhaler INH 2 puff BID-RT SAMUEL Administration Nystatin 500,000 units 08/25/20 13:00 08/30/20 08:32 Nystatin 500,000 Units/5 Ml Udcup SSW 500,000 units QID SAMUEL Administration Nystatin 1 gm 08/29/20 14:03 08/30/20 11:05 Nystatin Powder 15 Gm Bot TOP 1 applic BIDPRN PRN Administration Topical Irritations Ondansetron HCl 4 mg 08/22/20 19:15 08/30/20 10:46 Ondansetron Pf 4 Mg/2 Ml Vial IVP 4 mg Q6H PRN Administration Nausea/Vomiting Saccharomyces Boulardii 250 mg 08/24/20 09:00 08/30/20 08:32 Saccharomyces Boulardii 250 Mg Cap PO 250 mg DAILY SAMUEL Administration Simethicone 80 mg 08/23/20 11:43 08/24/20 13:36 Simethicone Chewable 80 Mg Tab PO 80 mg TIDPRN PRN Administration Gas Pain Sodium Chloride 10 ml 08/25/20 21:00 08/30/20 08:32 Flush - Normal Saline 10 Ml Syringe IVF 10 ml Q12HR SAMUEL Administration Zinc Sulfate 220 mg 08/23/20 09:00 08/30/20 08:32 Zinc Sulfate 220 Mg Cap PO 220 mg DAILY SAMUEL Administration - Exam Neck: negative: supple, symmetric, no JVD, no thyromegaly, no lymphadenopathy, no carotid bruit, JVD Heart: negative: RRR, no murmur, no gallops, no rubs, normal peripheral pulses, irregular, diminshed peripheral pulses, murmur present, II/IV, III/IV Respiratory: negative: CTAB, no wheezes, no rales, no ronchi, normal chest exp ansion, no tachypnea, normal percussion, rales, rhonchi, tachypneic, wheezes Gastrointestinal: negative: soft, non-tender, non-distended, normal bowel sounds, no palpable masses, no hepatomegaly, no splenomegaly, no bruit, no guarding, no rigidity, tender to palpation, distended, diminished bowl sounds, voluntary guarding Hosp A/P (1) COVID-19 virus infection Code(s): U07.1 - COVID-19 Status: Acute (2) Acute on chronic respiratory failure with hypoxemia Code(s): J96.21 - ACUTE AND CHRONIC RESPIRATORY FAILURE WITH HYPOXIA Status: Acute (3) COPD exacerbation Code(s): J44.1 - CHRONIC OBSTRUCTIVE PULMONARY DISEASE W (ACUTE) EXACERBATION Status: Acute (4) Anemia, normocytic normochromic Code(s): D64.9 - ANEMIA, UNSPECIFIED Status: Chronic (5) Diabetes mellitus, type II Status: Chronic Qualifiers: Diabetes mellitus retirement insulin use: without retirement use Diabetes mellitus complication status: without complication Qualified Code(s): E11.9 - Type 2 diabetes mellitus without complications (6) Hypertension Code(s): I10 - ESSENTIAL (PRIMARY) HYPERTENSION Status: Chronic Qualifiers: Hypertension type: essential hypertension Qualified Code(s): I10 - Essential (primary) hypertension (7) Obesity (BMI 30-39.9) Code(s): E66.9 - OBESITY, UNSPECIFIED Status: Chronic - Plan We will continue Solu-Medrol. We will also continue IV antibiotics. We will stop vancomycin. Patient does have expiratory wheezing. I have started her home inhalers. She is a candidate for remdesivir will consult pharmacy to see if she is a appropriate candidate. Will check inflammatory markers in the morning. She is currently on 4 L however desats on minimal exertion. Check a BNP in the morning. 08/29 will switch iv abx to oral. will continue steroids for now. pt is on inhalers. BNP normal. she is on remdesivir will continue. She is on dvt ppx. 08/30 will give one dose of diflucan. will continue remdesivir and steroids. she is on dvt ppx. pt encouraged to ambulate with assistance. she did get up with PT yest.
[2020-08-30] MEDS: Clotrimazole 2% 3 Day Vag Cr 22.2 GM TUBE VAG PRN (14:18)
[2020-08-30] MEDS: Fluticasone Propionate Nasal Spray 16 gm Bottle NASAL SCH (20:32)
[2020-08-31] MEDS: Acetaminophen 325 MG TAB PO PRN ×2 (02:27→08:05)
[2020-08-31] MEDS: Albuterol 200 PUFF (6.7GM INHALER) INH SCH ×6 (02:28→23:22)
[2020-08-31] MEDS: Mometasone 100 MCG/Formoterol 5 MCG 120 PUFF INHALER INH SCH ×2 (05:52→17:23)
[2020-08-31 06:14] LABS: ALT (SGPT) 29 U/L (8-55); AST (SGOT) 14 U/L (5-34); Albumin 3.3 g/dL (3.5-5.0); Alkaline Phosphatase 56 U/L (40-110); Bilirubin, Direct 0.1 mg/dL (0.1-0.3); Bilirubin, Total 0.2 mg/dL (0.2-1.2); Protein, Total 6.2 g/dL (6.0-8.3)
[2020-08-31] MEDS: Ascorbic Acid 500 mg Chewable Tablet PO SCH (07:50)
[2020-08-31] MEDS: Nystatin 500,000 UNITS/5 ML UDCUP SSW SCH ×4 (07:50→17:43)
[2020-08-31] MEDS: Saccharomyces boulardii 250 MG CAP PO SCH (07:50)
[2020-08-31] MEDS: Lisinopril 2.5 MG TAB PO SCH (07:51)
[2020-08-31] MEDS: Famotidine 20 MG TAB PO SCH ×2 (07:51→20:37)
[2020-08-31] MEDS: guaiFENesin ER 600 MG TAB PO SCH ×2 (07:51→20:37)
[2020-08-31] MEDS: methylPREDNISolone Sod Succ 40 MG VIAL IVP SCH (07:52)
[2020-08-31] MEDS: Enoxaparin Sodium 40 MG/0.4 ML SYRINGE SC SCH ×2 (07:52→20:37)
[2020-08-31] MEDS: Metoprolol Tartrate 25 MG TAB PO SCH ×2 (07:53→20:37)
[2020-08-31] MEDS: Zinc Sulfate 220 MG CAP PO SCH (07:53)
[2020-08-31] MEDS: ALPRAZolam 0.25 MG TAB PO SCH ×2 (07:53→20:37)
[2020-08-31] MEDS: HumaLOG 300 UNITS/3 ML VIAL SC PRN ×3 (11:28→23:22)
--- NOTE | 2020-08-31 15:26 | PDOC.HOSPP ---
- Subjective Encounter Date: 08/31/20 Encounter Time: 10:50 Subjective: pt up in bed no complains. - Objective Vital Signs & Weight: Vital Signs (12 hours) Temp Pulse Resp BP Pulse Ox 08/31/20 12:07 93 99/57 L 08/31/20 11:37 97.5 F L 82 20 89/51 L 93 L 08/31/20 08:15 98.2 F 92 22 H 104/53 L 93 L Weight Weight 167 lb 11.2 oz I&O: 08/30/20 08/31/20 09/01/20 06:59 06:59 06:59 Intake Total 1790 1450 Output Total 1750 1450 Balance 40 0 Result Diagrams: 08/29/20 04:56 08/29/20 04:56 Additional Labs: Accuchecks 08/31/20 08/30/20 08/30/20 10:38 20:34 16:09 POC Glucose 282 H 202 H 232 H Hospitalist ROS - Review of Systems ENT: reports: ear pain Respiratory: denies: cough, dry, shortness of breath, hemoptysis, SOB with excertion, pleuritic pain, sputum, wheezing, other Cardiovascular: denies: chest pain, palpitations, orthopnea, paroxysmal noc. dyspnea, edema, light headedness, other Gastrointestinal: denies: nausea, vomiting, abdominal pain, diarrhea, constipation, melena, hematochezia, other - Medication Medications: Active Medications Generic Name Dose Route Start Last Admin Trade Name Freq PRN Reason Stop Dose Admin Acetaminophen 650 mg 08/22/20 19:15 08/31/20 08:05 Acetaminophen 325 Mg Tab PO 650 mg Q4H PRN Administration Headache/Fever/Mild Pain (1-3) Albuterol Sulfate 2 puff 08/23/20 02:30 08/31/20 14:49 Albuterol 200 Puff (6.7gm Inhaler) INH 2 puff [id number] SAMUEL Administration Alprazolam 0.25 mg 08/22/20 09:00 08/31/20 07:53 Alprazolam 0.25 Mg Tab PO 0.25 mg BID SAMUEL Administration Ascorbic Acid 1,000 mg 08/23/20 09:00 08/31/20 07:50 Ascorbic Acid 500 Mg Chewable Tablet PO 1,000 mg DAILY SAMUEL Administration Calcium Carbonate 1,000 mg 08/24/20 08:07 08/25/20 17:18 Calcium Carbonate 500 Mg Chewtab PO 1,000 mg Q4H PRN Administration Heartburn or Indigestion Clotrimazole 1 gm 08/30/20 12:02 08/30/20 14:18 Clotrimazole 2% 3 Day Vag Cr 22.2 Gm Tube VAG 1 applic BIDPRN PRN Administration Vaginal Irritation Enoxaparin Sodium 40 mg 08/22/20 21:00 08/31/20 07:52 Enoxaparin Sodium 40 Mg/0.4 Ml Syringe SC 40 mg 0900,2100 SAMUEL Administration Famotidine 20 mg 08/22/20 21:00 08/31/20 07:51 Famotidine 20 Mg Tab PO 20 mg BID SAMUEL Administration Fluticasone Propionate 0 gm 08/26/20 21:00 08/30/20 20:32 Fluticasone Propionate Nasal [place] 16 Gm Bottle NASAL 2 spray HS SAMUEL Administration Guaifenesin 600 mg 08/24/20 09:00 08/31/20 07:51 Guaifenesin Er 600 Mg Tab PO 600 mg Q12HR SAMUEL Administration Remdesivir 100 mg/ Sodium 250 mls @ 250 mls/hr 08/29/20 21:00 08/30/20 20:32 Chloride IV 09/01/20 21:59 250 mls Q24HR SAMUEL Administration Insulin Human Lispro 0 units 08/23/20 16:01 08/31/20 11:28 Humalog 300 Units/3 Ml Vial SC 6 unit .MODERATE SLIDING SC PRN Administration Moderate Correctional Scale Insulin Human Lispro 0 units 08/28/20 22:09 08/28/20 22:17 Humalog 300 Units/3 Ml Vial SC 3 unit .BEDTIME SLIDING SC PRN Administration Bedtime Correctional Scale Levofloxacin 500 mg 08/30/20 06:00 08/31/20 05:52 Levofloxacin 500 Mg Tab PO 500 mg 0600 SAMUEL Administration Loratadine 10 mg 08/24/20 08:07 08/30/20 05:21 Loratadine 10 Mg Tab PO 10 mg DAILYPRN PRN Administration Sinus Symptoms Magnesium Hydroxide 30 ml 08/24/20 17:41 08/27/20 12:39 Milk Of Magnesia 30 Ml Udcup PO 30 ml Q6H PRN Administration Constipation Methylprednisolone Sodium Succinate 40 mg 08/29/20 09:00 08/31/20 07:52 Methylprednisolone Sod Succ 40 Mg Vial IVP 40 mg DAILY SAMUEL Administration Mometasone Furoate/Formoterol Fumar 2 puff 08/28/20 18:30 08/31/20 05:52 Mometasone 100 Mcg/Formoterol 5 Mcg 120 Puff Inhaler INH 2 puff BID-RT SAMUEL Administration Nystatin 500,000 units 08/25/20 13:00 08/31/20 11:28 Nystatin 500,000 Units/5 Ml Udcup SSW 500,000 units QID SAMUEL Administration Nystatin 1 gm 08/29/20 14:03 08/30/20 11:05 Nystatin Powder 15 Gm Bot TOP 1 applic BIDPRN PRN Administration Topical Irritations Ondansetron HCl 4 mg 08/22/20 19:15 08/30/20 10:46 Ondansetron Pf 4 Mg/2 Ml Vial IVP 4 mg Q6H PRN Administration Nausea/Vomiting Saccharomyces Boulardii 250 mg 08/24/20 09:00 08/31/20 07:50 Saccharomyces Boulardii 250 Mg Cap PO 250 mg DAILY SAMUEL Administration Simethicone 80 mg 08/23/20 11:43 08/24/20 13:36 Simethicone Chewable 80 Mg Tab PO 80 mg TIDPRN PRN Administration Gas Pain Sodium Chloride 10 ml 08/25/20 21:00 08/31/20 07:54 Flush - Normal Saline 10 Ml Syringe IVF 10 ml Q12HR SAMUEL Administration Zinc Sulfate 220 mg 08/23/20 09:00 08/31/20 07:53 Zinc Sulfate 220 Mg Cap PO 220 mg DAILY SAMUEL Administration - Exam Eye - other findings: pain to her right ear Heart: negative: RRR, no murmur, no gallops, no rubs, normal peripheral pulses, irregular, diminshed peripheral pulses, murmur present, II/IV, III/IV Respiratory: negative: CTAB, no wheezes, no rales, no ronchi, normal chest expansion, no tachypnea, normal percussion, rales, rhonchi, tachypneic, wheezes Gastrointestinal: negative: soft, non-tender, non-distended, normal bowel sounds, no palpable masses, no hepatomegaly, no splenomegaly, no bruit, no guarding, no rigidity, tender to palpation, distended, diminished bowl sounds, voluntary guarding Extremities: negative: no cyanosis, no clubbing, no edema, 1+ LE edema, 2+ LE edema, clubbing Hosp A/P (1) COVID-19 virus infection Code(s): U07.1 - COVID-19 Status: Acute (2) Acute on chronic respiratory failure with hypoxemia Code(s): J96.21 - ACUTE AND CHRONIC RESPIRATORY FAILURE WITH HYPOXIA Status: Acute (3) COPD exacerbation Code(s): J44.1 - CHRONIC OBSTRUCTIVE PULMONARY DISEASE W (ACUTE) EXACERBATION Status: Acute (4) Anemia, normocytic normochromic Code(s): D64.9 - ANEMIA, UNSPECIFIED Status: Chronic (5) Diabetes mellitus, type II Status: Chronic Qualifiers: Diabetes mellitus senior living insulin use: without remote computer terminal operator use Diabetes mellitus complication status: without complication Qualified Code(s): E11.9 - Type 2 diabetes mellitus without complications (6) Hypertension Code(s): I10 - ESSENTIAL (PRIMARY) HYPERTENSION Status: Chronic Qualifiers: Hypertension type: essential hypertension Qualified Code(s): I10 - Essential (primary) hypertension (7) Obesity (BMI 30-39.9) Code(s): E66.9 - OBESITY, UNSPECIFIED Status: Chronic - Plan We will continue Solu-Medrol. We will also continue IV antibiotics. We will stop vancomycin. Patient does have expiratory wheezing. I have started her home inhalers. She is a candidate for remdesivir will consult pharmacy to see if she is a appropriate candidate. Will check inflammatory markers in the morning. She is currently on 4 L however desats on minimal exertion. Check a BNP in the morning. 08/29 will switch iv abx to oral. will continue steroids for now. pt is on inhalers. BNP normal. she is on remdesivir will continue. She is on dvt ppx. 08/30 will give one dose of diflucan. will continue remdesivir and steroids. she is on dvt ppx. pt encouraged to ambulate with assistance. she did get up with PT yest. 08/31 will add cipro drops to her right ear. pt states she feels well will monitor. pt encouraged to ambulate
[2020-08-31] MEDS ORDERED: Ciprofloxacin 0.2% Otic (0.25ML CONTAINER) R EAR SCH (16:00)
[2020-08-31] MEDS: Loratadine 10 MG TAB PO PRN (17:42)
[2020-08-31] MEDS: Milk Of Magnesia 30 ML UDCUP PO PRN (17:42)
[2020-08-31] MEDS: Clotrimazole 2% 3 Day Vag Cr 22.2 GM TUBE VAG PRN (21:06)
[2020-08-31] MEDS: Fluticasone Propionate Nasal Spray 16 gm Bottle NASAL SCH (21:07)
[2020-08-31] MEDS: Ciprofloxacin 0.2% Otic (0.25ML CONTAINER) R EAR SCH (21:08)
[2020-09-01] MEDS: Albuterol 200 PUFF (6.7GM INHALER) INH SCH ×6 (02:55→21:59)
[2020-09-01 05:39] LABS: #Eosinphils 0.4 thou/uL (0.0-0.7); #Lymphocytes 1.3 thou/uL (1.20-3.40); #Monocytes 0.9 thou/uL (0.11-0.59); #Neutrophils 9.6 thou/uL (1.40-6.50); %Basophils 0.2 % (0.0-1.0); %Eosinophils 3.5 % (0.0-10.0); %Lymphocytes 10.9 % (21.0-51.0); %Monocytes 7.3 % (0.0-10.0); %Neutrophils 78.2 % (42.0-75.0); Hemoglobin 11.7 g/dL (12.0-16.0); Mean Corpuscular HGB CONC 32.3 g/dL (32.0-36.0); Mean Corpuscular Hemoglobin 29.1 pg (27.0-31.0); Mean Corpuscular Volume 90.2 fL (78.0-98.0); Mean Platelet Volume 7.3 fL (7.4-10.4); Platelet Count 340 thou/uL (130-400); RBC Distribution Width 13.4 % (11.5-14.5); Red Blood Cell (RBC) Count 4.02 mill/uL (4.20-5.40); White Blood Cell (WBC) Count 12.2 thou/uL (4.8-10.8)
[2020-09-01 06:05] LABS: ALT (SGPT) 29 U/L (8-55); AST (SGOT) 19 U/L (5-34); Albumin 3.3 g/dL (3.5-5.0); Alkaline Phosphatase 59 U/L (40-110); Bilirubin, Direct 0.1 mg/dL (0.1-0.3); Bilirubin, Total 0.2 mg/dL (0.2-1.2); Protein, Total 6.3 g/dL (6.0-8.3)
[2020-09-01] MEDS: HumaLOG 300 UNITS/3 ML VIAL SC PRN ×3 (06:06→21:16)
[2020-09-01] MEDS: Mometasone 100 MCG/Formoterol 5 MCG 120 PUFF INHALER INH SCH ×2 (06:07→18:12)
[2020-09-01 06:08] LABS: ALT (SGPT) 29 U/L (8-55); AST (SGOT) 17 U/L (5-34); Albumin 3.3 g/dL (3.5-5.0); Alkaline Phosphatase 57 U/L (40-110); Anion Gap 13 mmol/L (10-20); BUN (Urea Nitrogen) 22 mg/dL (9.8-20.1); Bilirubin, Total 0.3 mg/dL (0.2-1.2); CRP (Inflammatory) 1.87 mg/dL (= or < 0.5); Calc. Creatinine Clearance 88 mL/min (70-130); Calcium 9.1 mg/dL (7.8-10.44); Carbon Dioxide 26 mmol/L (22-29); Chloride 99 mmol/L (98-107); Estimated GFR-MDRD 70; Glucose 201 mg/dL (70-105); Potassium 5.2 mmol/L (3.5-5.1); Protein, Total 6.3 g/dL (6.0-8.3); Sodium 133 mmol/L (136-145)
[2020-09-01] MEDS: ALPRAZolam 0.25 MG TAB PO SCH (08:32)
[2020-09-01] MEDS: Loratadine 10 MG TAB PO PRN (08:32)
[2020-09-01] MEDS: Famotidine 20 MG TAB PO SCH ×2 (08:33→20:45)
[2020-09-01] MEDS: methylPREDNISolone Sod Succ 40 MG VIAL IVP SCH (08:33)
[2020-09-01] MEDS: Ascorbic Acid 500 mg Chewable Tablet PO SCH (08:33)
[2020-09-01] MEDS: Enoxaparin Sodium 40 MG/0.4 ML SYRINGE SC SCH ×2 (08:33→20:44)
[2020-09-01] MEDS: Ciprofloxacin 0.2% Otic (0.25ML CONTAINER) R EAR SCH ×2 (08:33→20:46)
[2020-09-01] MEDS: Metoprolol Tartrate 25 MG TAB PO SCH ×3 (08:33→17:52)
[2020-09-01] MEDS: guaiFENesin ER 600 MG TAB PO SCH ×2 (08:33→20:50)
[2020-09-01] MEDS: Saccharomyces boulardii 250 MG CAP PO SCH (08:34)
[2020-09-01] MEDS: Zinc Sulfate 220 MG CAP PO SCH (08:34)
[2020-09-01] MEDS: Nystatin 500,000 UNITS/5 ML UDCUP SSW SCH ×4 (08:34→20:44)
[2020-09-01] MEDS ORDERED: HumaLOG 300 UNITS/3 ML VIAL SC SCH (09:15)
[2020-09-01] MEDS ORDERED: Bisacodyl 10 MG SUPP PR SCH (12:45)
[2020-09-01] MEDS ORDERED: Bisacodyl 5 MG TAB PO SCH (12:45)
[2020-09-01] MEDS ORDERED: methylPREDNISolone Sod Succ 40 MG VIAL IVP SCH ×2 (12:45→21:00)
--- NOTE | 2020-09-01 15:00 | RAD ---
Exam: Chest one view Abdomen 2 views HISTORY: Abdominal distention FINDINGS: Atherosclerotic knob. Normal cardiac silhouette. Pulmonary vessels and hilum are normal. Ri ght costophrenic angle is clear. Blunting of left costophrenic angle likely due to small effusion. Patchy interstitial opacities lung bases likely represent atelectasis. Stable emphysematous changes i n the upper lobes. No pneumothorax or acute osseous abnormalities 2 views abdomen: Nonspecific bowel gas pattern. No evidence of bowel distention or dilatation. No pne umoperitoneum. IMPRESSION: 1. Small left-sided effusion. 2. Atherosclerosis 3. Nonspecific bowel gas pattern.
[2020-09-01] MEDS ORDERED: Fluconazole 100 MG TAB PO SCH (16:00)
--- NOTE | 2020-09-01 16:00 | PDOC.HOSPP ---
- Subjective Encounter Date: 09/01/20 Encounter Time: 11:30 Subjective: pt up in bed states that she has not had a bowl movement. - Objective Vital Signs & Weight: Vital Signs (12 hours) Temp Pulse Resp BP Pulse Ox 09/01/20 15:04 98.1 F 101 H 24 H 133/61 95 09/01/20 08:00 98.3 F 98 20 98/57 L 98 09/01/20 04:00 98.1 F 80 19 146/58 H 94 L Weight Weight 167 lb 11.2 oz I&O: 08/31/20 09/01/20 09/02/20 06:59 06:59 06:59 Intake Total 1450 720 Output Total 1450 750 600 Balance 0 -30 -600 Result Diagrams: 09/01/20 04:52 09/01/20 04:52 Additional Labs: Accuchecks 09/01/20 09/01/20 08/31/20 10:58 05:29 19:35 POC Glucose 241 H 200 H 292 H 08/31/20 16:09 POC Glucose 242 H Hospitalist ROS - Review of Systems Cardiovascular: denies: chest pain, palpitations, orthopnea, paroxysmal noc. dyspnea, edema, light headedness, other Gastrointestinal: denies: nausea, vomiting, abdominal pain, diarrhea, constipation, melena, hematochezia, other Genitourinary: denies: dysuria, frequency, incontinence, hematuria, retention, other - Medication Medications: Active Medications Generic Name Dose Route Start Last Admin Trade Name Freq PRN Reason Stop Dose Admin Acetaminophen 650 mg 08/22/20 19:15 08/31/20 08:05 Acetaminophen 325 Mg Tab PO 650 mg Q4H PRN Administration Headache/Fever/Mild Pain (1-3) Albuterol Sulfate 2 puff 08/23/20 02:30 09/01/20 14:44 Albuterol 200 Puff (6.7gm Inhaler) INH 2 puff [id number] SAMUEL Administration Ascorbic Acid 1,000 mg 08/23/20 09:00 09/01/20 08:33 Ascorbic Acid 500 Mg Chewable Tablet PO 1,000 mg DAILY SAMUEL Administration Calcium Carbonate 1,000 mg 08/24/20 08:07 08/25/20 17:18 Calcium Carbonate 500 Mg Chewtab PO 1,000 mg Q4H PRN Administration Heartburn or Indigestion Ciprofloxacin 4 each 08/31/20 21:00 09/01/20 08:33 Ciprofloxacin 0.2% Otic (0.25ml Container) R EAR 4 each BID SAMUEL Administration Clotrimazole 1 gm 08/30/20 12:02 08/31/20 21:06 Clotrimazole 2% 3 Day Vag Cr 22.2 Gm Tube VAG 1 applic BIDPRN PRN Administration Vaginal Irritation Enoxaparin Sodium 40 mg 08/22/20 21:00 09/01/20 08:33 Enoxaparin Sodium 40 Mg/0.4 Ml Syringe SC 40 mg 0900,2100 SAMUEL Administration Famotidine 20 mg 08/22/20 21:00 09/01/20 08:33 Famotidine 20 Mg Tab PO 20 mg BID SAMUEL Administration Fluticasone Propionate 0 gm 08/26/20 21:00 08/31/20 21:07 Fluticasone Propionate Nasal [place] 16 Gm Bottle NASAL 2 spray HS SAMUEL Administration Guaifenesin 600 mg 08/24/20 09:00 09/01/20 08:33 Guaifenesin Er 600 Mg Tab PO 600 mg Q12HR SAMUEL Administration Remdesivir 100 mg/ Sodium 250 mls @ 250 mls/hr 08/29/20 21:00 08/31/20 20:37 Chloride IV 09/01/20 21:59 250 mls Q24HR SAMUEL Administration Insulin Human Lispro 0 units 08/23/20 16:01 09/01/20 06:06 Humalog 300 Units/3 Ml Vial SC 2 unit .MODERATE SLIDING SC PRN Administration Moderate Correctional Scale Insulin Human Lispro 0 units 08/28/20 22:09 08/31/20 23:22 Humalog 300 Units/3 Ml Vial SC 3 unit .BEDTIME SLIDING SC PRN Administration Bedtime Correctional Scale Levofloxacin 500 mg 08/30/20 06:00 09/01/20 06:07 Levofloxacin 500 Mg Tab PO 500 mg 0600 SAMUEL Administration Loratadine 10 mg 08/24/20 08:07 09/01/20 08:32 Loratadine 10 Mg Tab PO 10 mg DAILYPRN PRN Administration Sinus Symptoms Magnesium Hydroxide 30 ml 08/24/20 17:41 08/31/20 17:42 Milk Of Magnesia 30 Ml Udcup PO 30 ml Q6H PRN Administration Constipation Mometasone Furoate/Formoterol Fumar 2 puff 08/28/20 18:30 09/01/20 06:07 Mometasone 100 Mcg/Formoterol 5 Mcg 120 Puff Inhaler INH 2 puff BID-RT SAMUEL Administration Nystatin 500,000 units 08/25/20 13:00 09/01/20 14:40 Nystatin 500,000 Units/5 Ml Udcup SSW 500,000 units QID SAMUEL Administration Nystatin 1 gm 08/29/20 14:03 08/30/20 11:05 Nystatin Powder 15 Gm Bot TOP 1 applic BIDPRN PRN Administration Topical Irritations Ondansetron HCl 4 mg 08/22/20 19:15 08/30/20 10:46 Ondansetron Pf 4 Mg/2 Ml Vial IVP 4 mg Q6H PRN Administration Nausea/Vomiting Saccharomyces Boulardii 250 mg 08/24/20 09:00 09/01/20 08:34 Saccharomyces Boulardii 250 Mg Cap PO 250 mg DAILY SAMUEL Administration Simethicone 80 mg 08/23/20 11:43 08/24/20 13:36 Simethicone Chewable 80 Mg Tab PO 80 mg TIDPRN PRN Administration Gas Pain Sodium Chloride 10 ml 08/25/20 21:00 09/01/20 08:34 Flush - Normal Saline 10 Ml Syringe IVF 10 ml Q12HR SAMUEL Administration Zinc Sulfate 220 mg 08/23/20 09:00 09/01/20 08:34 Zinc Sulfate 220 Mg Cap PO 220 mg DAILY SAMUEL Administration - Exam Heart: negative: RRR, no murmur, no gallops, no rubs, normal peripheral pulses, irregular, diminshed peripheral pulses, murmur present, II/IV, III/IV Respiratory: wheezes Respiratory - other findings: diminished breath sounds Gastrointestinal: negative: soft, non-tender, non-distended, normal bowel sounds, no palpable masses, no hepatomegaly, no splenomegaly, no bruit, no guarding, no rigidity, tender to palpation, distended, diminished bowl sounds, voluntary guarding Hosp A/P (1) COVID-19 virus infection Code(s): U07.1 - COVID-19 Status: Acute (2) Acute on chronic respiratory failure with hypoxemia Code(s): J96.21 - ACUTE AND CHRONIC RESPIRATORY FAILURE WITH HYPOXIA Status: Acute (3) COPD exacerbation Code(s): J44.1 - CHRONIC OBSTRUCTIVE PULMONARY DISEASE W (ACUTE) EXACERBATION Status: Acute (4) Anemia, normocytic normochromic Code(s): D64.9 - ANEMIA, UNSPECIFIED Status: Chronic (5) Diabetes mellitus, type II Status: Chronic Qualifiers: Diabetes mellitus detention insulin use: without lobsterman use Diabetes mellitus complication status: without complication Qualified Code(s): E11.9 - Type 2 diabetes mellitus without complications (6) Hypertension Code(s): I10 - ESSENTIAL (PRIMARY) HYPERTENSION Status: Chronic Qualifiers: Hypertension type: essential hypertension Qualified Code(s): I10 - Essential (primary) hypertension (7) Obesity (BMI 30-39.9) Code(s): E66.9 - OBESITY, UNSPECIFIED Status: Chronic - Plan We will continue Solu-Medrol. We will also continue IV antibiotics. We will stop vancomycin. Patient does have expiratory wheezing. I have started her home inhalers. She is a candidate for remdesivir will consult pharmacy to see if she is a appropriate candidate. Will check inflammatory markers in the morning. She is currently on 4 L however desats on minimal exertion. Check a BNP in the morning. 08/29 will switch iv abx to oral. will continue steroids for now. pt is on inhalers. BNP normal. she is on remdesivir will continue. She is on dvt ppx. 08/30 will give one dose of diflucan. will continue remdesivir and steroids. she is on dvt ppx. pt encouraged to ambulate with assistance. she did get up with PT yest. 08/31 will add cipro drops to her right ear. pt states she feels well will monitor. pt encouraged to ambulate 09/01 will continue to trend inflammatory markers. with still gets very sob on minimal movement. will add miralax for constipation.
[2020-09-01] MEDS ORDERED: Polyethylene Glycol 3350 17 GM Packet PO PRN (18:17)
[2020-09-01] MEDS: Clotrimazole 2% 3 Day Vag Cr 22.2 GM TUBE VAG PRN (20:44)
[2020-09-01] MEDS: Senokot S 8.6-50 MG TAB PO SCH (20:45)
[2020-09-01] MEDS: Polyethylene Glycol 3350 17 GM Packet PO SCH (20:45)
[2020-09-01] MEDS: Fluticasone Propionate Nasal Spray 16 gm Bottle NASAL SCH (20:46)
[2020-09-01] MEDS ORDERED: Metoprolol Tartrate 25 MG TAB PO SCH ×2 (21:00)
[2020-09-01] MEDS: Acetaminophen 325 MG TAB PO PRN (21:19)
[2020-09-01] MEDS ORDERED: ALPRAZolam 0.25 MG TAB PO SCH (22:00)
[2020-09-02] MEDS: Albuterol 200 PUFF (6.7GM INHALER) INH SCH ×6 (02:19→22:30)
[2020-09-02] MEDS: HumaLOG 300 UNITS/3 ML VIAL SC PRN ×3 (05:45→18:27)
[2020-09-02] MEDS: Mometasone 100 MCG/Formoterol 5 MCG 120 PUFF INHALER INH SCH ×2 (06:09→19:33)
[2020-09-02] MEDS: Ascorbic Acid 500 mg Chewable Tablet PO SCH (07:48)
[2020-09-02] MEDS: ALPRAZolam 0.25 MG TAB PO SCH ×2 (07:49→20:16)
[2020-09-02] MEDS: Famotidine 20 MG TAB PO SCH ×2 (07:49→20:15)
[2020-09-02] MEDS: guaiFENesin ER 600 MG TAB PO SCH ×2 (07:49→20:16)
[2020-09-02] MEDS: Senokot S 8.6-50 MG TAB PO SCH ×2 (07:49→20:15)
[2020-09-02] MEDS: Metoprolol Tartrate 25 MG TAB PO SCH ×2 (07:50→20:15)
[2020-09-02] MEDS: Nystatin 500,000 UNITS/5 ML UDCUP SSW SCH ×4 (07:51→20:14)
[2020-09-02] MEDS: Loratadine 10 MG TAB PO PRN (07:52)
[2020-09-02] MEDS: Enoxaparin Sodium 40 MG/0.4 ML SYRINGE SC SCH ×2 (07:52→20:14)
[2020-09-02] MEDS: Polyethylene Glycol 3350 17 GM Packet PO SCH ×3 (07:52→20:14)
[2020-09-02] MEDS: Saccharomyces boulardii 250 MG CAP PO SCH (07:52)
[2020-09-02] MEDS: methylPREDNISolone Sod Succ 40 MG VIAL IVP SCH (07:53)
[2020-09-02] MEDS: Zinc Sulfate 220 MG CAP PO SCH (07:55)
[2020-09-02] MEDS: Ciprofloxacin 0.2% Otic (0.25ML CONTAINER) R EAR SCH ×2 (08:13→20:46)
[2020-09-02 10:44] VITALS: BMI 30.7
--- NOTE | 2020-09-02 14:50 | PDOC.HOSPP ---
- Subjective Encounter Date: 09/02/20 Encounter Time: 10:00 Subjective: pt up in bed no complains - Objective Vital Signs & Weight: Vital Signs (12 hours) Temp Pulse Resp BP Pulse Ox 09/02/20 11:15 98.0 F 62 24 H 120/68 92 L 09/02/20 08:04 97.8 F 104 H 20 139/65 97 Weight Admit Weight 175 lb 9.6 oz Weight 167 lb 11.2 oz I&O: 09/01/20 09/02/20 09/03/20 06:59 06:59 06:59 Intake Total 720 1210 Output Total 750 1950 Balance -30 -510 Result Diagrams: 09/01/20 04:52 09/01/20 04:52 Additional Labs: Accuchecks 09/02/20 09/02/20 09/01/20 11:12 05:13 20:59 POC Glucose 231 H 216 H 275 H 09/01/20 08/31/20 16:31 06:00 POC Glucose 262 H 142 H Hospitalist ROS - Review of Systems Respiratory: denies: cough, dry, shortness of breath, hemoptysis, SOB with excertion, pleuritic pain, sputum, wheezing, other Cardiovascular: denies: chest pain, palpitations, orthopnea, paroxysmal noc. dyspnea, edema, light headedness, other Gastrointestinal: denies: nausea, vomiting, abdominal pain, diarrhea, constipation, melena, hematochezia, other - Medication Medications: Active Medications Generic Name Dose Route Start Last Admin Trade Name Freq PRN Reason Stop Dose Admin Acetaminophen 650 mg 08/22/20 19:15 09/01/20 21:19 Acetaminophen 325 Mg Tab PO 650 mg Q4H PRN Administration Headache/Fever/Mild Pain (1-3) Albuterol Sulfate 2 puff 08/23/20 02:30 09/02/20 12:03 Albuterol 200 Puff (6.7gm Inhaler) INH 2 puff [id number] SAMUEL Administration Alprazolam 0.25 mg 09/02/20 09:00 09/02/20 07:49 Alprazolam 0.25 Mg Tab PO 0.25 mg BID SAMUEL Administration Ascorbic Acid 1,000 mg 08/23/20 09:00 09/02/20 07:48 Ascorbic Acid 500 Mg Chewable Tablet PO 1,000 mg DAILY SAMUEL Administration Calcium Carbonate 1,000 mg 08/24/20 08:07 08/25/20 17:18 Calcium Carbonate 500 Mg Chewtab PO 1,000 mg Q4H PRN Administration Heartburn or Indigestion Ciprofloxacin 0 each 09/02/20 09:00 09/02/20 08:13 Ciprofloxacin 0.2% Otic (0.25ml Container) R EAR 4 each BID SAMUEL Administration Clotrimazole 1 gm 08/30/20 12:02 09/01/20 20:44 Clotrimazole 2% 3 Day Vag Cr 22.2 Gm Tube VAG 1 applic BIDPRN PRN Administration Vaginal Irritation Enoxaparin Sodium 40 mg 08/22/20 21:00 09/02/20 07:52 Enoxaparin Sodium 40 Mg/0.4 Ml Syringe SC 40 mg 0900,2100 SAMUEL Administration Famotidine 20 mg 08/22/20 21:00 09/02/20 07:49 Famotidine 20 Mg Tab PO 20 mg BID SAMUEL Administration Fluticasone Propionate 0 gm 08/26/20 21:00 09/01/20 20:46 Fluticasone Propionate Nasal [place] 16 Gm Bottle NASAL 2 spray HS SAMUEL Administration Guaifenesin 600 mg 08/24/20 09:00 09/02/20 07:49 Guaifenesin Er 600 Mg Tab PO 600 mg Q12HR SAMUEL Administration Insulin Human Lispro 0 units 08/23/20 16:01 09/02/20 12:04 Humalog 300 Units/3 Ml Vial SC 4 unit .MODERATE SLIDING SC PRN Administration Moderate Correctional Scale Insulin Human Lispro 0 units 08/28/20 22:09 09/01/20 21:16 Humalog 300 Units/3 Ml Vial SC 3 unit .BEDTIME SLIDING SC PRN Administration Bedtime Correctional Scale Levofloxacin 500 mg 08/30/20 06:00 09/02/20 06:09 Levofloxacin 500 Mg Tab PO 500 mg 0600 SAMUEL Administration Loratadine 10 mg 08/24/20 08:07 09/01/20 08:32 Loratadine 10 Mg Tab PO 10 mg DAILYPRN PRN Administration Sinus Symptoms Magnesium Hydroxide 30 ml 08/24/20 17:41 08/31/20 17:42 Milk Of Magnesia 30 Ml Udcup PO 30 ml Q6H PRN Administration Constipation Methylprednisolone Sodium Succinate 40 mg 09/02/20 09:00 09/02/20 07:53 Methylprednisolone Sod Succ 40 Mg Vial IVP 40 mg DAILY SAMUEL Administration Metoprolol Tartrate 12.5 mg 09/01/20 21:00 09/02/20 07:50 Metoprolol Tartrate 25 Mg Tab PO 12.5 mg BID SAMUEL Administration Mometasone Furoate/Formoterol Fumar 2 puff 08/28/20 18:30 09/02/20 06:09 Mometasone 100 Mcg/Formoterol 5 Mcg 120 Puff Inhaler INH 2 puff BID-RT SAMUEL Administration Nystatin 500,000 units 08/25/20 13:00 09/02/20 12:04 Nystatin 500,000 Units/5 Ml Udcup SSW 500,000 units QID SAMUEL Administration Nystatin 1 gm 08/29/20 14:03 08/30/20 11:05 Nystatin Powder 15 Gm Bot TOP 1 applic BIDPRN PRN Administration Topical Irritations Ondansetron HCl 4 mg 08/22/20 19:15 08/30/20 10:46 Ondansetron Pf 4 Mg/2 Ml Vial IVP 4 mg Q6H PRN Administration Nausea/Vomiting Polyethylene Glycol 17 gm 09/01/20 21:00 09/02/20 08:43 Polyethylene Glycol 3350 17 Gm Packet PO Not Given BID SAMUEL Saccharomyces Boulardii 250 mg 08/24/20 09:00 09/02/20 07:52 Saccharomyces Boulardii 250 Mg Cap PO 250 mg DAILY SAMUEL Administration Senna/Docusate Sodium 1 tab 09/01/20 21:00 09/02/20 07:49 Senokot S 8.6-50 Mg Tab PO 1 tab BID SAMUEL Administration Simethicone 80 mg 08/23/20 11:43 08/24/20 13:36 Simethicone Chewable 80 Mg Tab PO 80 mg TIDPRN PRN Administration Gas Pain Sodium Chloride 10 ml 08/25/20 21:00 09/02/20 07:54 Flush - Normal Saline 10 Ml Syringe IVF 10 ml Q12HR SAMUEL Administration Zinc Sulfate 220 mg 08/23/20 09:00 09/02/20 07:55 Zinc Sulfate 220 Mg Cap PO 220 mg DAILY SAMUEL Administration - Exam Neck: negative: supple, symmetric, no JVD, no thyromegaly, no lymphadenopathy, no carotid bruit, JVD Heart: negative: RRR, no murmur, no gallops, no rubs, normal peripheral pulses, irregular, diminshed peripheral pulses, murmur present, II/IV, III/IV Respiratory: rhonchi, wheezes Gastrointestinal: soft, normal bowel sounds Gastrointestinal - other findings: colostomy bag to LLQ Extremities: negative: no cyanosis, no clubbing, no edema, 1+ LE edema, 2+ LE ed atilio, clubbing Hosp A/P (1) COVID-19 virus infection Code(s): U07.1 - COVID-19 Status: Acute (2) Acute on chronic respiratory failure with hypoxemia Code(s): J96.21 - ACUTE AND CHRONIC RESPIRATORY FAILURE WITH HYPOXIA Status: Acute (3) COPD exacerbation Code(s): J44.1 - CHRONIC OBSTRUCTIVE PULMONARY DISEASE W (ACUTE) EXACERBATION Status: Acute (4) Anemia, normocytic normochromic Code(s): D64.9 - ANEMIA, UNSPECIFIED Status: Chronic (5) Diabetes mellitus, type II Status: Chronic Qualifiers: Diabetes mellitus buttermilk drier operator insulin use: without buttermilk drier operator use Diabetes mellitus complication status: without complication Qualified Code(s): E11.9 - Type 2 diabetes mellitus without complications (6) Hypertension Code(s): I10 - ESSENTIAL (PRIMARY) HYPERTENSION Status: Chronic Qualifiers: Hypertension type: essential hypertension Qualified Code(s): I10 - Essenti al (primary) hypertension (7) Obesity (BMI 30-39.9) Code(s): E66.9 - OBESITY, UNSPECIFIED Status: Chronic - Plan We will continue Solu-Medrol. We will also continue IV antibiotics. We will stop vancomycin. Patient does have expiratory wheezing. I have started her home inhalers. She is a candidate for remdesivir will consult pharmacy to see if she is a appropriate candidate. Will check inflammatory markers in the morning. She is currently on 4 L however desats on minimal exertion. Check a BNP in the morning. 08/29 will switch iv abx to oral. will continue steroids for now. pt is on inhalers. BNP normal. she is on remdesivir will continue. She is on dvt ppx. 08/30 will give one dose of diflucan. will continue remdesivir and steroids. she is on dvt ppx. pt encouraged to ambulate with assistance. she did get up with PT yest. 08/31 will add cipro drops to her right ear. pt states she feels well will monitor. pt encouraged to ambulate 09/01 will continue to trend inflammatory markers. with still gets very sob on minimal movement. will add miralax for constipation. 09/02 pt states that she felt well with extras steroids yest. will give her on additional dose today. she had a bowel movement. she still gets hypoxic when she moves. she is still on high flow.
[2020-09-02] MEDS: Acetaminophen 325 MG TAB PO PRN (20:15)
[2020-09-02] MEDS: Fluticasone Propionate Nasal Spray 16 gm Bottle NASAL SCH (20:17)
[2020-09-03] MEDS: Albuterol 200 PUFF (6.7GM INHALER) INH SCH ×6 (03:37→23:35)
[2020-09-03] MEDS: Mometasone 100 MCG/Formoterol 5 MCG 120 PUFF INHALER INH SCH ×2 (05:40→18:44)
[2020-09-03] MEDS: HumaLOG 300 UNITS/3 ML VIAL SC PRN ×3 (05:45→23:34)
[2020-09-03 08:10] LABS: #Basophils 0.1 thou/uL (0.0-0.2); #Eosinphils 0.1 thou/uL (0.0-0.7); #Lymphocytes 0.8 thou/uL (1.20-3.40); #Monocytes 0.6 thou/uL (0.11-0.59); %Basophils 0.7 % (0.0-1.0); %Eosinophils 0.7 % (0.0-10.0); %Lymphocytes 9.4 % (21.0-51.0); %Monocytes 7.2 % (0.0-10.0); %Neutrophils 81.9 % (42.0-75.0); Hemoglobin 12.3 g/dL (12.0-16.0); Mean Corpuscular Volume 90.9 fL (78.0-98.0); Mean Platelet Volume 7.1 fL (7.4-10.4); Platelet Count 319 thou/uL (130-400); RBC Distribution Width 13.8 % (11.5-14.5); White Blood Cell (WBC) Count 8.6 thou/uL (4.8-10.8)
[2020-09-03 08:41] LABS: ALT (SGPT) 29 U/L (8-55); AST (SGOT) 16 U/L (5-34); Albumin 3.5 g/dL (3.5-5.0); Alkaline Phosphatase 63 U/L (40-110); Anion Gap 15 mmol/L (10-20); BUN (Urea Nitrogen) 23 mg/dL (9.8-20.1); Bilirubin, Total 0.3 mg/dL (0.2-1.2); CRP (Inflammatory) 1.01 mg/dL (= or < 0.5); Calc. Creatinine Clearance 82 mL/min (70-130); Carbon Dioxide 27 mmol/L (22-29); Chloride 96 mmol/L (98-107); Estimated GFR-MDRD 65; Globulin 3.1 g/dL (2.4-3.5); Glucose 273 mg/dL (70-105); Potassium 4.8 mmol/L (3.5-5.1); Protein, Total 6.6 g/dL (6.0-8.3); Sodium 133 mmol/L (136-145)
[2020-09-03] MEDS: Ascorbic Acid 500 mg Chewable Tablet PO SCH (10:20)
[2020-09-03] MEDS: Zinc Sulfate 220 MG CAP PO SCH (10:20)
[2020-09-03] MEDS: Enoxaparin Sodium 40 MG/0.4 ML SYRINGE SC SCH ×3 (10:20→21:48)
[2020-09-03] MEDS: ALPRAZolam 0.25 MG TAB PO SCH ×2 (10:20→20:55)
[2020-09-03] MEDS: Saccharomyces boulardii 250 MG CAP PO SCH (10:20)
[2020-09-03] MEDS: Metoprolol Tartrate 25 MG TAB PO SCH ×2 (10:21→20:55)
[2020-09-03] MEDS: Senokot S 8.6-50 MG TAB PO SCH ×2 (10:21→20:55)
[2020-09-03] MEDS: Famotidine 20 MG TAB PO SCH ×2 (10:21→20:55)
[2020-09-03] MEDS: guaiFENesin ER 600 MG TAB PO SCH ×2 (10:22→20:55)
[2020-09-03] MEDS: Nystatin 500,000 UNITS/5 ML UDCUP SSW SCH ×4 (10:22→20:55)
[2020-09-03] MEDS: methylPREDNISolone Sod Succ 40 MG VIAL IVP SCH ×2 (10:22→18:45)
[2020-09-03] MEDS: Ciprofloxacin 0.2% Otic (0.25ML CONTAINER) R EAR SCH (10:33)
[2020-09-03] MEDS: Polyethylene Glycol 3350 17 GM Packet PO SCH ×2 (12:42→20:56)
[2020-09-03] MEDS: Acetaminophen 325 MG TAB PO PRN (13:36)
--- NOTE | 2020-09-03 16:55 | PDOC.HOSPP ---
- Subjective Encounter Date: 09/03/20 Encounter Time: 11:30 Subjective: Patient up in bed still very short of breath. - Objective Vital Signs & Weight: Vital Signs (12 hours) Temp Pulse Resp BP Pulse Ox Pulse Ox Pulse Ox 09/03/20 16:14 98.5 F 94 18 116/67 95 09/03/20 14:59 91 L 84 L 09/03/20 12:53 95 09/03/20 12:46 98.5 F 78 22 H 124/60 96 09/03/20 10:35 98.7 F 106 H 22 H 149/70 H 95 Pulse Ox 09/03/20 16:14 09/03/20 14:59 94 L 09/03/20 12:53 09/03/20 12:46 09/03/20 10:35 Weight Admit Weight 175 lb 9.6 oz Weight 167 lb 11.2 oz I&O: 09/02/20 09/03/20 09/04/20 06:59 06:59 06:59 Intake Total 1210 1720 Output Total 1950 1650 950 Balance -740 70 -950 Result Diagrams: 09/03/20 07:58 09/03/20 07:58 Additional Labs: Accuchecks 09/03/20 09/03/20 09/02/20 10:45 05:43 20:28 POC Glucose 211 H 265 H 175 H 09/02/20 17:08 POC Glucose 195 H Hospitalist ROS - Review of Systems Respiratory: reports: shortness of breath Cardiovascular: denies: chest pain, palpitations, orthopnea, paroxysmal noc. dyspnea, edema, light headedness, other Gastrointestinal: denies: nausea, vomiting, abdominal pain, diarrhea, constipati on, melena, hematochezia, other Genitourinary: denies: dysuria, frequency, incontinence, hematuria, retention, other - Medication Medications: Active Medications Generic Name Dose Route Start Last Admin Trade Name Freq PRN Reason Stop Dose Admin Acetaminophen 650 mg 08/22/20 19:15 09/03/20 13:36 Acetaminophen 325 Mg Tab PO 650 mg Q4H PRN Administration Headache/Fever/Mild Pain (1-3) Albuterol Sulfate 2 puff 08/23/20 02:30 09/03/20 13:36 Albuterol 200 Puff (6.7gm Inhaler) INH 2 puff [id number] SAMUEL Administration Alprazolam 0.25 mg 09/02/20 09:00 09/03/20 10:20 Alprazolam 0.25 Mg Tab PO 0.25 mg BID SAMUEL Administration Ascorbic Acid 1,000 mg 08/23/20 09:00 09/03/20 10:20 Ascorbic Acid 500 Mg Chewable Tablet PO 1,000 mg DAILY SAMUEL Administration Calcium Carbonate 1,000 mg 08/24/20 08:07 08/25/20 17:18 Calcium Carbonate 500 Mg Chewtab PO 1,000 mg Q4H PRN Administration Heartburn or Indigestion Ciprofloxacin 0 each 09/02/20 09:00 09/03/20 10:33 Ciprofloxacin 0.2% Otic (0.25ml Container) R EAR 1 each BID SAMUEL Administration Clotrimazole 1 gm 08/30/20 12:02 09/01/20 20:44 Clotrimazole 2% 3 Day Vag Cr 22.2 Gm Tube VAG 1 applic BIDPRN PRN Administration Vaginal Irritation Enoxaparin Sodium 40 mg 08/22/20 21:00 09/03/20 10:20 Enoxaparin Sodium 40 Mg/0.4 Ml Syringe SC 40 mg 0900,2100 SAMUEL Administration Famotidine 20 mg 08/22/20 21:00 09/03/20 10:21 Famotidine 20 Mg Tab PO 20 mg BID SAMUEL Administration Fluticasone Propionate 0 gm 08/26/20 21:00 09/02/20 20:17 Fluticasone Propionate Nasal [place] 16 Gm Bottle NASAL 2 spray HS SAMUEL Administration Guaifenesin 600 mg 08/24/20 09:00 09/03/20 10:22 Guaifenesin Er 600 Mg Tab PO 600 mg Q12HR SAMUEL Administration Insulin Human Lispro 0 units 08/23/20 16:01 09/03/20 12:43 Humalog 300 Units/3 Ml Vial SC 4 unit .MODERATE SLIDING SC PRN Administration Moderate Correctional Scale Insulin Human Lispro 0 units 08/28/20 22:09 09/01/20 21:16 Humalog 300 Units/3 Ml Vial SC 3 unit .BEDTIME SLIDING SC PRN Administration Bedtime Correctional Scale Levofloxacin 500 mg 08/30/20 06:00 09/03/20 05:39 Levofloxacin 500 Mg Tab PO 500 mg 0600 SAMUEL Administration Loratadine 10 mg 08/24/20 08:07 09/01/20 08:32 Loratadine 10 Mg Tab PO 10 mg DAILYPRN PRN Administration Sinus Symptoms Magnesium Hydroxide 30 ml 08/24/20 17:41 08/31/20 17:42 Milk Of Magnesia 30 Ml Udcup PO 30 ml Q6H PRN Administration Constipation Methylprednisolone Sodium Succinate 40 mg 09/02/20 09:00 09/03/20 10:22 Methylprednisolone Sod Succ 40 Mg Vial IVP 40 mg DAILY SAMUEL Administration Metoprolol Tartrate 12.5 mg 09/01/20 21:00 09/03/20 10:21 Metoprolol Tartrate 25 Mg Tab PO 12.5 mg BID SAMUEL Administration Mometasone Furoate/Formoterol Fumar 2 puff 08/28/20 18:30 09/03/20 05:40 Mometasone 100 Mcg/Formoterol 5 Mcg 120 Puff Inhaler INH 2 puff BID-RT SAMUEL Administration Nystatin 500,000 units 08/25/20 13:00 09/03/20 16:09 Nystatin 500,000 Units/5 Ml Udcup SSW 500,000 units QID SAMUEL Administration Nystatin 1 gm 08/29/20 14:03 08/30/20 11:05 Nystatin Powder 15 Gm Bot TOP 1 applic BIDPRN PRN Administration Topical Irritations Ondansetron HCl 4 mg 08/22/20 19:15 08/30/20 10:46 Ondansetron Pf 4 Mg/2 Ml Vial IVP 4 mg Q6H PRN Administration Nausea/Vomiting Polyethylene Glycol 17 gm 09/01/20 21:00 09/03/20 12:42 Polyethylene Glycol 3350 17 Gm Packet PO Not Given BID [facility] Saccharomyces Boulardii 250 mg 08/24/20 09:00 09/03/20 10:20 Saccharomyces Boulardii 250 Mg Cap PO 250 mg DAILY SAMUEL Administration Senna/Docusate Sodium 1 tab 09/01/20 21:00 09/03/20 10:21 Senokot S 8.6-50 Mg Tab PO 1 tab BID SAMUEL Administration Simethicone 80 mg 08/23/20 11:43 08/24/20 13:36 Simethicone Chewable 80 Mg Tab PO 80 mg TIDPRN PRN Administration Gas Pain Sodium Chloride 10 ml 08/25/20 21:00 09/03/20 10:20 Flush - Normal Saline 10 Ml Syringe IVF 10 ml Q12HR SAMUEL Administration Zinc Sulfate 220 mg 08/23/20 09:00 09/03/20 10:20 Zinc Sulfate 220 Mg Cap PO 220 mg DAILY SAMUEL Administration - Exam Neck: negative: supple, symmetric, no JVD, no thyromegaly, no lymphadenopathy, no carotid bruit, JVD Heart: negative: RRR, no murmur, no gallops, no rubs, normal peripheral pulses, irregular, diminshed peripheral pulses, murmur present, II/IV, III/IV Respiratory: wheezes Gastrointestinal: soft, normal bowel sounds Gastrointestinal - other findings: Left lower quadrant colostomy. Hosp A/P (1) COVID-19 virus infection Code(s): U07.1 - COVID-19 Status: Acute (2) Acute on chronic respiratory failure with hypoxemia Code(s): J96.21 - ACUTE AND CHRONIC RESPIRATORY FAILURE WITH HYPOXIA Status: Acute (3) COPD exacerbation Code(s): J44.1 - CHRONIC OBSTRUCTIVE PULMONARY DISEASE W (ACUTE) EXACERBATION Status: Acute (4) Anemia, normocytic normochromic Code(s): D64.9 - ANEMIA, UNSPECIFIED Status: Chronic (5) Diabetes mellitus, type II Status: Chronic Qualifiers: Diabetes mellitus terminal system operator insulin use: without fci use Diabetes mellitus complication status: without complication Qualified Code(s): E11.9 - Type 2 diabetes mellitus without complications (6) Hypertension Code(s): I10 - ESSENTIAL (PRIMARY) HYPERTENSION Status: Chronic Qualifiers: Hypertension type: essential hypertension Qualified Code(s): I10 - Essential (primary) hypertension (7) Obesity (BMI 30-39.9) Code(s): E66.9 - OBESITY, UNSPECIFIED Status: Chronic - Plan We will continue Solu-Medrol. We will also continue IV antibiotics. We will stop vancomycin. Patient does have expiratory wheezing. I have started her home inhalers. She is a candidate for remdesivir will consult pharmacy to see if she is a appropriate candidate. Will check inflammatory markers in the morning. She is currently on 4 L however desats on minimal exertion. Check a BNP in the morning. 08/29 will switch iv abx to oral. will continue steroids for now. pt is on inhalers. BNP normal. she is on remdesivir will continue. She is on dvt ppx. 08/30 will give one dose of diflucan. will continue remdesivir and steroids. she is on dvt ppx. pt encouraged to ambulate with assistance. she did get up with PT yest. 08/31 will add cipro drops to her right ear. pt states she feels well will monitor. pt encouraged to ambulate 09/01 will continue to trend inflammatory markers. with still gets very sob on minimal movement. will add miralax for constipation. 09/02 pt states that she felt well with extras steroids yest. will give her on additional dose today. she had a bowel movement. she still gets hypoxic when she moves. she is still on high flow. 09/03 I am trying to avoid high steroids in this patient however she has significant wheezing. Her inflammatory markers continue to improve. I will increase her Solu-Medrol to every 8 for the next couple days to see if this helps her. She continues to be on high flow and desats on minimal movement.
[2020-09-03] MEDS ORDERED: HumaLOG 300 UNITS/3 ML VIAL SC SCH (17:00)
[2020-09-03] MEDS: Fluticasone Propionate Nasal Spray 16 gm Bottle NASAL SCH (23:35)
[2020-09-04] MEDS: Ciprofloxacin 0.2% Otic (0.25ML CONTAINER) R EAR SCH ×3 (00:25→21:15)
[2020-09-04] MEDS: methylPREDNISolone Sod Succ 40 MG VIAL IVP SCH ×3 (03:59→17:47)
[2020-09-04] MEDS: Albuterol 200 PUFF (6.7GM INHALER) INH SCH ×6 (03:59→21:18)
[2020-09-04] MEDS: Mometasone 100 MCG/Formoterol 5 MCG 120 PUFF INHALER INH SCH ×2 (05:03→18:20)
[2020-09-04] MEDS: HumaLOG 300 UNITS/3 ML VIAL SC PRN ×2 (05:34→21:44)
[2020-09-04] MEDS: Ascorbic Acid 500 mg Chewable Tablet PO SCH (08:08)
[2020-09-04] MEDS: Nystatin 500,000 UNITS/5 ML UDCUP SSW SCH ×4 (08:08→21:17)
[2020-09-04] MEDS: guaiFENesin ER 600 MG TAB PO SCH ×2 (08:08→21:16)
[2020-09-04] MEDS: Famotidine 20 MG TAB PO SCH ×2 (08:08→21:16)
[2020-09-04] MEDS: ALPRAZolam 0.25 MG TAB PO SCH ×2 (08:08→21:16)
[2020-09-04] MEDS: Enoxaparin Sodium 40 MG/0.4 ML SYRINGE SC SCH ×3 (08:08→21:15)
[2020-09-04] MEDS: Senokot S 8.6-50 MG TAB PO SCH ×2 (08:09→21:16)
[2020-09-04] MEDS: Metoprolol Tartrate 25 MG TAB PO SCH ×2 (08:09→21:16)
[2020-09-04] MEDS: Saccharomyces boulardii 250 MG CAP PO SCH (08:09)
[2020-09-04] MEDS: HumaLOG 300 UNITS/3 ML VIAL SC SCH ×3 (08:11→17:47)
[2020-09-04] MEDS: Zinc Sulfate 220 MG CAP PO SCH (08:14)
[2020-09-04] MEDS: Acetaminophen 325 MG TAB PO PRN ×3 (08:31→22:13)
[2020-09-04] MEDS: Polyethylene Glycol 3350 17 GM Packet PO SCH ×2 (11:27→21:16)
--- NOTE | 2020-09-04 16:47 | PDOC.HOSPP ---
- Subjective Encounter Date: 09/04/20 Encounter Time: 11:30 Subjective: Patient up in bed walked with physical therapy however dropped her saturations to 84% on 3-1/2 L. Patient states that she feels better than yesterday. - Objective Vital Signs & Weight: Vital Signs (12 hours) Temp Pulse Resp BP Pulse Ox Pulse Ox Pulse Ox 09/04/20 15:17 98.5 F 105 H 20 140/83 96 09/04/20 14:41 90 L 84 L 09/04/20 13:25 96 09/04/20 11:36 97.1 F L 81 20 105/64 96 09/04/20 08:00 98.6 F 81 18 133/60 96 Pulse Ox 09/04/20 15:17 09/04/20 14:41 94 L 09/04/20 13:25 09/04/20 11:36 09/04/20 08:00 Weight Admit Weight 175 lb 9.6 oz Weight 167 lb 11.2 oz I&O: 09/03/20 09/04/20 09/05/20 06:59 06:59 06:59 Intake Total 1720 618 Output Total 1650 1750 Balance 70 -1132 Result Diagrams: 09/03/20 07:58 09/03/20 07:58 Additional Labs: Accuchecks 09/04/20 09/04/20 09/03/20 10:51 05:07 21:11 POC Glucose 310 H 284 H 296 H 09/03/20 16:53 POC Glucose 224 H Hospitalist ROS - Review of Systems Respiratory: reports: shortness of breath Cardiovascular: denies: chest pain, palpitations, orthopnea, paroxysmal noc. dyspnea, edema, light headedness, other Gastrointestinal: denies: nausea, vomiting, abdominal pain, diarrhea, constipation, melena, hematochezia, other - Medication Medications: Active Medications Generic Name Dose Route Start Last Admin Trade Name Freq PRN Reason Stop Dose Admin Acetaminophen 650 mg 08/22/20 19:15 09/04/20 08:31 Acetaminophen 325 Mg Tab PO 650 mg Q4H PRN Administration Headache/Fever/Mild Pain (1-3) Albuterol Sulfate 2 puff 08/23/20 02:30 09/04/20 14:56 Albuterol 200 Puff (6.7gm Inhaler) INH 2 puff [id number] SAMUEL Administration Alprazolam 0.25 mg 09/02/20 09:00 09/04/20 08:08 Alprazolam 0.25 Mg Tab PO 0.25 mg BID SAMUEL Administration Ascorbic Acid 1,000 mg 08/23/20 09:00 09/04/20 08:08 Ascorbic Acid 500 Mg Chewable Tablet PO 1,000 mg DAILY SAMUEL Administration Calcium Carbonate 1,000 mg 08/24/20 08:07 08/25/20 17:18 Calcium Carbonate 500 Mg Chewtab PO 1,000 mg Q4H PRN Administration Heartburn or Indigestion Ciprofloxacin 0 each 09/02/20 09:00 09/04/20 11:27 Ciprofloxacin 0.2% Otic (0.25ml Container) R EAR 4 each BID SAMUEL Administration Clotrimazole 1 gm 08/30/20 12:02 09/01/20 20:44 Clotrimazole 2% 3 Day Vag Cr 22.2 Gm Tube VAG 1 applic BIDPRN PRN Administration Vaginal Irritation Enoxaparin Sodium 40 mg 08/22/20 21:00 09/04/20 08:08 Enoxaparin Sodium 40 Mg/0.4 Ml Syringe SC 40 mg 0900,2100 SAMUEL Administration Famotidine 20 mg 08/22/20 21:00 09/04/20 08:08 Famotidine 20 Mg Tab PO 20 mg BID SAMUEL Administration Fluticasone Propionate 0 gm 08/26/20 21:00 09/03/20 23:35 Fluticasone Propionate Nasal [place] 16 Gm Bottle NASAL 2 spray HS SAMUEL Administration Guaifenesin 600 mg 08/24/20 09:00 09/04/20 08:08 Guaifenesin Er 600 Mg Tab PO 600 mg Q12HR SAMUEL Administration Insulin Human Lispro 0 units 08/23/20 16:01 09/04/20 05:34 Humalog 300 Units/3 Ml Vial SC 6 unit .MODERATE SLIDING SC PRN Administration Moderate Correctional Scale Insulin Human Lispro 0 units 08/28/20 22:09 09/03/20 23:34 Humalog 300 Units/3 Ml Vial SC 3 unit .BEDTIME SLIDING SC PRN Administration Bedtime Correctional Scale Insulin Human Lispro 8 units 09/04/20 08:00 09/04/20 11:25 Humalog 300 Units/3 Ml Vial SC 8 unit TID-WM SAMUEL Administration Levofloxacin 500 mg 08/30/20 06:00 09/04/20 05:02 Levofloxacin 500 Mg Tab PO 500 mg 0600 SAMUEL Administration Loratadine 10 mg 08/24/20 08:07 09/01/20 08:32 Loratadine 10 Mg Tab PO 10 mg DAILYPRN PRN Administration Sinus Symptoms Magnesium Hydroxide 30 ml 08/24/20 17:41 08/31/20 17:42 Milk Of Magnesia 30 Ml Udcup PO 30 ml Q6H PRN Administration Constipation Methylprednisolone Sodium Succinate 40 mg 09/03/20 18:00 09/04/20 08:15 Methylprednisolone Sod Succ 40 Mg Vial IVP 40 mg 0200,1000,1800 SAMUEL Administration Metoprolol Tartrate 12.5 mg 09/01/20 21:00 09/04/20 08:09 Metoprolol Tartrate 25 Mg Tab PO 12.5 mg BID SAMUEL Administration Mometasone Furoate/Formoterol Fumar 2 puff 08/28/20 18:30 09/04/20 05:03 Mometasone 100 Mcg/Formoterol 5 Mcg 120 Puff Inhaler INH 2 puff BID-RT SAMUEL Administration Nystatin 500,000 units 08/25/20 13:00 09/04/20 14:56 Nystatin 500,000 Units/5 Ml Udcup SSW 500,000 units QID SAMUEL Administration Nystatin 1 gm 08/29/20 14:03 08/30/20 11:05 Nystatin Powder 15 Gm Bot TOP 1 applic BIDPRN PRN Administration Topical Irritations Ondansetron HCl 4 mg 08/22/20 19:15 08/30/20 10:46 Ondansetron Pf 4 Mg/2 Ml Vial IVP 4 mg Q6H PRN Administration Nausea/Vomiting Polyethylene Glycol 17 gm 09/01/20 21:00 09/04/20 11:27 Polyethylene Glycol 3350 17 Gm Packet PO Not Given BID SAMUEL Saccharomyces Boulardii 250 mg 08/24/20 09:00 09/04/20 08:09 Saccharomyces Boulardii 250 Mg Cap PO 250 mg DAILY SAMUEL Administration Senna/Docusate Sodium 1 tab 09/01/20 21:00 09/04/20 08:09 Senokot S 8.6-50 Mg Tab PO 1 tab BID SAMUEL Administration Simethicone 80 mg 08/23/20 11:43 08/24/20 13:36 Simethicone Chewable 80 Mg Tab PO 80 mg TIDPRN PRN Administration Gas Pain Sodium Chloride 10 ml 08/25/20 21:00 09/04/20 08:08 Flush - Normal Saline 10 Ml Syringe IVF 10 ml Q12HR SAMUEL Administration Zinc Sulfate 220 mg 08/23/20 09:00 09/04/20 08:14 Zinc Sulfate 220 Mg Cap PO 220 mg DAILY SAMUEL Administration - Exam Neck: negative: supple, symmetric, no JVD, no thyromegaly, no lymphadenopathy, no carotid bruit, JVD Heart: negative: RRR, no murmur, no gallops, no rubs, normal peripheral pulses, irregular, diminshed peripheral pulses, murmur present, II/IV, III/IV Respiratory: wheezes Hosp A/P (1) COVID-19 virus infection Code(s): U07.1 - COVID-19 Status: Acute (2) Acute on chronic respiratory failure with hypoxemia Code(s): J96.21 - ACUTE AND CHRONIC RESPIRATORY FAILURE WITH HYPOXIA Status: Acute (3) COPD exacerbation Code(s): J44.1 - CHRONIC OBSTRUCTIVE PULMONARY DISEASE W (ACUTE) EXACERBATION Status: Acute (4) Anemia, normocytic normochromic Code(s): D64.9 - ANEMIA, UNSPECIFIED Status: Chronic (5) Diabetes mellitus, type II Status: Chronic Qualifiers: Diabetes mellitus senior care insulin use: without senior care use Diabetes mellitus complication status: without complication Qualified Code(s): E11.9 - Type 2 diabetes mellitus without complications (6) Hypertension Code(s): I10 - ESSENTIAL (PRIMARY) HYPERTENSION Status: Chronic Qualifiers: Hypertension type: essential hypertension Qualified Code(s): I10 - Essential (primary) hypertension (7) Obesity (BMI 30-39.9) Code(s): E66.9 - OBESITY, UNSPECIFIED Status: Chronic - Plan We will continue Solu-Medrol. We will also continue IV antibiotics. We will stop vancomycin. Patient does have expiratory wheezing. I have started her home inhalers. She is a candidate for remdesivir will consult pharmacy to see if she is a appropriate candidate. Will check inflammatory markers in the morning. She is currently on 4 L however desats on minimal exertion. Check a BNP in the morning. 08/29 will switch iv abx to oral. will continue steroids for now. pt is on inhalers. BNP normal. she is on remdesivir will continue. She is on dvt ppx. 08/30 will give one dose of diflucan. will continue remdesivir and steroids. she is on dvt ppx. pt encouraged to ambulate with assistance. she did get up with PT yest. 08/31 will add cipro drops to her right ear. pt states she feels well will monitor. pt encouraged to ambulate 09/01 will continue to trend inflammatory markers. with still gets very sob on minimal movement. will add miralax for constipation. 09/02 pt states that she felt well with extras steroids yest. will give her on additional dose today. she had a bowel movement. she still gets hypoxic when she moves. she is still on high flow. 09/03 I am trying to avoid high steroids in this patient however she has sig nificant wheezing. Her inflammatory markers continue to improve. I will increase her Solu-Medrol to every 8 for the next couple days to see if this helps her. She continues to be on high flow and desats on minimal movement. 09/04 we will continue current steroids. She states that she is feeling better. May consider getting patient to a swing bed since she will require long-term medical support. Patient is on nasal cannula. Patient is also on Lovenox.
[2020-09-04] MEDS: Clotrimazole 2% 3 Day Vag Cr 22.2 GM TUBE VAG PRN (21:15)
[2020-09-04] MEDS: Fluticasone Propionate Nasal Spray 16 gm Bottle NASAL SCH (21:17)
[2020-09-05] MEDS: Mometasone 100 MCG/Formoterol 5 MCG 120 PUFF INHALER INH SCH ×2 (04:04→17:24)
[2020-09-05] MEDS: Albuterol 200 PUFF (6.7GM INHALER) INH SCH ×6 (04:04→21:38)
[2020-09-05] MEDS: methylPREDNISolone Sod Succ 40 MG VIAL IVP SCH ×3 (04:04→17:22)
[2020-09-05] MEDS: HumaLOG 300 UNITS/3 ML VIAL SC PRN ×4 (05:42→22:07)
[2020-09-05] MEDS: HumaLOG 300 UNITS/3 ML VIAL SC SCH ×3 (07:41→17:19)
[2020-09-05] MEDS: Ascorbic Acid 500 mg Chewable Tablet PO SCH (07:46)
[2020-09-05] MEDS: ALPRAZolam 0.25 MG TAB PO SCH ×2 (07:46→21:39)
[2020-09-05] MEDS: Ciprofloxacin 0.2% Otic (0.25ML CONTAINER) R EAR SCH ×2 (07:46→22:06)
[2020-09-05] MEDS: Enoxaparin Sodium 40 MG/0.4 ML SYRINGE SC SCH ×2 (07:46→21:38)
[2020-09-05] MEDS: guaiFENesin ER 600 MG TAB PO SCH ×2 (07:47→21:39)
[2020-09-05] MEDS: Famotidine 20 MG TAB PO SCH ×2 (07:47→21:39)
[2020-09-05] MEDS: Metoprolol Tartrate 25 MG TAB PO SCH ×2 (07:47→21:40)
[2020-09-05] MEDS: Polyethylene Glycol 3350 17 GM Packet PO SCH ×2 (07:47→21:38)
[2020-09-05] MEDS: Nystatin 500,000 UNITS/5 ML UDCUP SSW SCH ×4 (07:47→21:45)
[2020-09-05] MEDS: Senokot S 8.6-50 MG TAB PO SCH ×2 (07:48→21:38)
[2020-09-05] MEDS: Saccharomyces boulardii 250 MG CAP PO SCH (07:48)
[2020-09-05] MEDS: Zinc Sulfate 220 MG CAP PO SCH (07:48)
--- NOTE | 2020-09-05 16:12 | PDOC.HOSPP ---
- Subjective Encounter Date: 09/05/20 Encounter Time: 11:15 Subjective: Patient up in bed still short of breath however better than before. I watched her getting physical therapy she stood up took some few steps however dropped her oxygen saturations to 90% this is better than before. Prior to this she was dropping her sats down in the 80s on movement. - Objective Vital Signs & Weight: Vital Signs (12 hours) Temp Pulse Resp BP Pulse Ox 09/05/20 08:36 97.9 F 72 20 148/70 H 97 09/05/20 08:33 97 09/05/20 04:17 97.7 F 70 20 164/75 H 97 Weight Admit Weight 175 lb 9.6 oz Weight 167 lb 11.2 oz I&O: 09/04/20 09/05/20 09/06/20 06:59 06:59 06:59 Intake Total 618 240 Output Total 1750 Balance -1132 240 Result Diagrams: 09/03/20 07:58 09/03/20 07:58 Additional Labs: Accuchecks 09/05/20 09/05/20 09/04/20 10:50 05:39 21:29 POC Glucose 301 H 250 H 401 H 09/04/20 16:39 POC Glucose 207 H Hospitalist ROS - Review of Systems Respiratory: reports: shortness of breath Cardiovascular: denies: chest pain, palpitations, orthopnea, paroxysmal noc. dyspnea, edema, light headedness, other Gastrointestinal: denies: nausea, vomiting, abdominal pain, diarrhea, constipat ion, melena, hematochezia, other - Medication Medications: Active Medications Generic Name Dose Route Start Last Admin Trade Name Perri PRN Reason Stop Dose Admin Acetaminophen 650 mg 08/22/20 19:15 09/04/20 22:13 Acetaminophen 325 Mg Tab PO 650 mg Q4H PRN Administration Headache/Fever/Mild Pain (1-3) Albuterol Sulfate 2 puff 08/23/20 02:30 09/05/20 14:12 Albuterol 200 Puff (6.7gm Inhaler) INH 2 puff [id number] SAMUEL Administration Alprazolam 0.25 mg 09/02/20 09:00 09/05/20 07:46 Alprazolam 0.25 Mg Tab PO 0.25 mg BID SAMUEL Administration Ascorbic Acid 1,000 mg 08/23/20 09:00 09/05/20 07:46 Ascorbic Acid 500 Mg Chewable Tablet PO 1,000 mg DAILY SAMUEL Administration Calcium Carbonate 1,000 mg 08/24/20 08:07 08/25/20 17:18 Calcium Carbonate 500 Mg Chewtab PO 1,000 mg Q4H PRN Administration Heartburn or Indigestion Ciprofloxacin 0 each 09/02/20 09:00 09/05/20 07:46 Ciprofloxacin 0.2% Otic (0.25ml Container) R EAR 4 each BID SAMUEL Administration Clotrimazole 1 gm 08/30/20 12:02 09/04/20 21:15 Clotrimazole 2% 3 Day Vag Cr 22.2 Gm Tube VAG 1 applic BIDPRN PRN Administration Vaginal Irritation Enoxaparin Sodium 40 mg 08/22/20 21:00 09/05/20 07:46 Enoxaparin Sodium 40 Mg/0.4 Ml Syringe SC 40 mg 0900,2100 SAMUEL Administration Famotidine 20 mg 08/22/20 21:00 09/05/20 07:47 Famotidine 20 Mg Tab PO 20 mg BID SAMUEL Administration Fluticasone Propionate 0 gm 08/26/20 21:00 09/04/20 21:17 Fluticasone Propionate Nasal [place] 16 Gm Bottle NASAL 2 spray HS SAMUEL Administration Guaifenesin 600 mg 08/24/20 09:00 09/05/20 07:47 Guaifenesin Er 600 Mg Tab PO 600 mg Q12HR SAMUEL Administration Insulin Human Lispro 0 units 08/23/20 16:01 09/05/20 11:34 Humalog 300 Units/3 Ml Vial SC 8 unit .MODERATE SLIDING SC PRN Administration Moderate Correctional Scale Insulin Human Lispro 0 units 08/28/20 22:09 09/04/20 21:44 Humalog 300 Units/3 Ml Vial SC 5 unit .BEDTIME SLIDING SC PRN Administration Bedtime Correctional Scale Insulin Human Lispro 8 units 09/04/20 08:00 09/05/20 11:35 Humalog 300 Units/3 Ml Vial SC 8 unit TID-WM SAMUEL Administration Levofloxacin 500 mg 08/30/20 06:00 09/05/20 07:04 Levofloxacin 500 Mg Tab PO 500 mg 0600 SAMUEL Administration Loratadine 10 mg 08/24/20 08:07 09/01/20 08:32 Loratadine 10 Mg Tab PO 10 mg DAILYPRN PRN Administration Sinus Symptoms Magnesium Hydroxide 30 ml 08/24/20 17:41 08/31/20 17:42 Milk Of Magnesia 30 Ml Udcup PO 30 ml Q6H PRN Administration Constipation Methylprednisolone Sodium Succinate 40 mg 09/03/20 18:00 09/05/20 10:44 Methylprednisolone Sod Succ 40 Mg Vial IVP 40 mg 0200,1000,1800 SAMUEL Administration Metoprolol Tartrate 12.5 mg 09/01/20 21:00 09/05/20 07:47 Metoprolol Tartrate 25 Mg Tab PO 12.5 mg BID SAMUEL Administration Mometasone Furoate/Formoterol Fumar 2 puff 08/28/20 18:30 09/05/20 04:04 Mometasone 100 Mcg/Formoterol 5 Mcg 120 Puff Inhaler INH 2 puff BID-RT SAMUEL Administration Nystatin 500,000 units 08/25/20 13:00 09/05/20 14:12 Nystatin 500,000 Units/5 Ml Udcup SSW 500,000 units QID SAMUEL Administration Nystatin 1 gm 08/29/20 14:03 08/30/20 11:05 Nystatin Powder 15 Gm Bot TOP 1 applic BIDPRN PRN Administration Topical Irritations Ondansetron HCl 4 mg 08/22/20 19:15 08/30/20 10:46 Ondansetron Pf 4 Mg/2 Ml Vial IVP 4 mg Q6H PRN Administration Nausea/Vomiting Polyethylene Glycol 17 gm 09/01/20 21:00 09/05/20 07:47 Polyethylene Glycol 3350 17 Gm Packet PO Not Given BID SAMUEL Saccharomyces Boulardii 250 mg 08/24/20 09:00 09/05/20 07:48 Saccharomyces Boulardii 250 Mg Cap PO 250 mg DAILY SAMUEL Administration Senna/Docusate Sodium 1 tab 09/01/20 21:00 09/05/20 07:48 Senokot S 8.6-50 Mg Tab PO 1 tab BID SAMUEL Administration Simethicone 80 mg 08/23/20 11:43 08/24/20 13:36 Simethicone Chewable 80 Mg Tab PO 80 mg TIDPRN PRN Administration Gas Pain Sodium Chloride 0 ml 08/24/20 08:07 09/04/20 16:03 Sodium Chloride 0.65% Nasal 44 Ml Bot EA NARE 1 spr QIDPRN PRN Administration Nasal Congestion Sodium Chloride 10 ml 08/25/20 21:00 09/05/20 07:48 Flush - Normal Saline 10 Ml Syringe IVF 10 ml Q12HR SAMUEL Administration Zinc Sulfate 220 mg 08/23/20 09:00 09/05/20 07:48 Zinc Sulfate 220 Mg Cap PO 220 mg DAILY SAMUEL Administration - Exam Neck: negative: supple, symmetric, no JVD, no thyromegaly, no lymphadenopathy, no carotid bruit, JVD Heart: negative: RRR, no murmur, no gallops, no rubs, normal peripheral pulses, irregular, diminshed peripheral pulses, murmur present, II/IV, III/IV Respiratory: wheezes Gastrointestinal: negative: soft, non-tender, non-distended, normal bowel sounds, no palpable masses, no hepatomegaly, no splenomegaly, no bruit, no gu arding, no rigidity, tender to palpation, distended, diminished bowl sounds, voluntary guarding Hosp A/P (1) COVID-19 virus infection Code(s): U07.1 - COVID-19 Status: Acute (2) Acute on chronic respiratory failure with hypoxemia Code(s): J96.21 - ACUTE AND CHRONIC RESPIRATORY FAILURE WITH HYPOXIA Status: Acute (3) COPD exacerbation Code(s): J44.1 - CHRONIC OBSTRUCTIVE PULMONARY DISEASE W (ACUTE) EXACERBATION Status: Acute (4) Anemia, normocytic normochromic Code(s): D64.9 - ANEMIA, UNSPECIFIED Status: Chronic (5) Diabetes mellitus, type II Status: Chronic Qualifiers: Diabetes mellitus termite inspector insulin use: without termite inspector use Diabetes mellitus complication status: without complication Qualified Code(s): E11.9 - Type 2 diabetes mellitus without complications (6) Hypertension Code(s): I10 - ESSENTIAL (PRIMARY) HYPERTENSION Status: Chronic Qualifiers: Hypertension type: essential hypertension Qualified Code(s): I10 - Essential (primary) hypertension (7) Obesity (BMI 30-39.9) Code(s): E66.9 - OBESITY, UNSPECIFIED Status: Chronic - Plan We will continue Solu-Medrol. We will also continue IV antibiotics. We will stop vancomycin. Patient does have expiratory wheezing. I have started her home inhalers. She is a candidate for remdesivir will consult pharmacy to see if she is a appropriate candidate. Will check inflammatory markers in the morning. She is currently on 4 L however desats on minimal exertion. Check a BNP in the morning. 08/29 will switch iv abx to oral. will continue steroids for now. pt is on inhalers. BNP normal. she is on remdesivir will continue. She is on dvt ppx. 08/30 will give one dose of diflucan. will continue remdesivir and steroids. she is on dvt ppx. pt encouraged to ambulate with assistance. she did get up with PT yest. 08/31 will add cipro drops to her right ear. pt states she feels well will monitor. pt encouraged to ambulate 09/01 will continue to trend inflammatory markers. with still gets very sob on minimal movement. will add miralax for constipation. 09/02 pt states that she felt well with extras steroids yest. will give her on additional dose today. she had a bowel movement. she still gets hypoxic when she moves. she is still on high flow. 09/03 I am trying to avoid high steroids in this patient however she has significant wheezing. Her inflammatory markers continue to improve. I will increase her Solu-Medrol to every 8 for the next couple days to see if this helps her. She continues to be on high flow and desats on minimal movement. 09/04 we will continue current steroids. She states that she is feeling better. May consider getting patient to a swing bed since she will require long-term medical support. Patient is on nasal cannula. Patient is also on Lovenox. 09/05 we will continue current treatment. Possible discharge to swing in a.m. We will continue Lovenox. Patient is just very deconditioned she will continue to require long-term care.
[2020-09-05] MEDS: Clotrimazole 2% 3 Day Vag Cr 22.2 GM TUBE VAG PRN (21:38)
[2020-09-05] MEDS: Fluticasone Propionate Nasal Spray 16 gm Bottle NASAL SCH (21:44)
[2020-09-06] MEDS: Albuterol 200 PUFF (6.7GM INHALER) INH SCH ×4 (01:36→16:04)
[2020-09-06] MEDS: methylPREDNISolone Sod Succ 40 MG VIAL IVP SCH (01:37)
[2020-09-06 05:31] LABS: #Eosinphils 0.2 thou/uL (0.0-0.7); #Lymphocytes 0.9 thou/uL (1.20-3.40); #Monocytes 0.8 thou/uL (0.11-0.59); #Neutrophils 11.6 thou/uL (1.40-6.50); %Eosinophils 1.4 % (0.0-10.0); %Lymphocytes 6.9 % (21.0-51.0); %Monocytes 5.8 % (0.0-10.0); Hemoglobin 11.9 g/dL (12.0-16.0); Mean Corpuscular HGB CONC 31.9 g/dL (32.0-36.0); Mean Corpuscular Hemoglobin 29.2 pg (27.0-31.0); Mean Corpuscular Volume 91.6 fL (78.0-98.0); Mean Platelet Volume 7.3 fL (7.4-10.4); Platelet Count 323 thou/uL (130-400); RBC Distribution Width 13.9 % (11.5-14.5); Red Blood Cell (RBC) Count 4.06 mill/uL (4.20-5.40); White Blood Cell (WBC) Count 13.5 thou/uL (4.8-10.8)
[2020-09-06] MEDS: HumaLOG 300 UNITS/3 ML VIAL SC PRN ×2 (05:49→11:12)
[2020-09-06 05:50] LABS: ALT (SGPT) 23 U/L (8-55); AST (SGOT) 13 U/L (5-34); Albumin 3.5 g/dL (3.5-5.0); Alkaline Phosphatase 61 U/L (40-110); Anion Gap 15 mmol/L (10-20); BUN (Urea Nitrogen) 31 mg/dL (9.8-20.1); Bilirubin, Total 0.3 mg/dL (0.2-1.2); CRP (Inflammatory) Less than 0.50 mg/dL (= or < 0.5); Calc. Creatinine Clearance 73 mL/min (70-130); Calcium 9.1 mg/dL (7.8-10.44); Carbon Dioxide 28 mmol/L (22-29); Chloride 95 mmol/L (98-107); Estimated GFR-MDRD 57; Globulin 2.9 g/dL (2.4-3.5); Glucose 372 mg/dL (70-105); Potassium 4.6 mmol/L (3.5-5.1); Protein, Total 6.4 g/dL (6.0-8.3); Sodium 133 mmol/L (136-145)
[2020-09-06] MEDS: Mometasone 100 MCG/Formoterol 5 MCG 120 PUFF INHALER INH SCH (06:03)
[2020-09-06] MEDS: Ascorbic Acid 500 mg Chewable Tablet PO SCH (07:39)
[2020-09-06] MEDS: ALPRAZolam 0.25 MG TAB PO SCH (07:39)
[2020-09-06] MEDS: Ciprofloxacin 0.2% Otic (0.25ML CONTAINER) R EAR SCH (07:40)
[2020-09-06] MEDS: Famotidine 20 MG TAB PO SCH (07:40)
[2020-09-06] MEDS: Enoxaparin Sodium 40 MG/0.4 ML SYRINGE SC SCH (07:40)
[2020-09-06] MEDS: guaiFENesin ER 600 MG TAB PO SCH (07:40)
[2020-09-06] MEDS: Metoprolol Tartrate 25 MG TAB PO SCH (07:40)
[2020-09-06] MEDS: Nystatin 500,000 UNITS/5 ML UDCUP SSW SCH ×2 (07:41→11:15)
[2020-09-06] MEDS: Polyethylene Glycol 3350 17 GM Packet PO SCH (07:42)
[2020-09-06] MEDS: Senokot S 8.6-50 MG TAB PO SCH (07:42)
[2020-09-06] MEDS: Saccharomyces boulardii 250 MG CAP PO SCH (07:42)
[2020-09-06] MEDS: Zinc Sulfate 220 MG CAP PO SCH (07:42)
[2020-09-06] MEDS: HumaLOG 300 UNITS/3 ML VIAL SC SCH (07:48)
[2020-09-06] MEDS ORDERED: Furosemide 20 MG/2 ML VIAL SLOW IVP SCH (09:15)
[2020-09-06] MEDS ORDERED: methylPREDNISolone Sod Succ 40 MG VIAL IVP SCH ×2 (09:30→21:00)
[2020-09-06 11:29] VITALS: BP 143/69; TEMP 98
[2020-09-06] MEDS ORDERED: HumaLOG 300 UNITS/3 ML VIAL SC SCH (12:00)
--- NOTE | 2020-09-07 00:50 | DIS ---
DATE OF ADMISSION: 08/22/2020 DATE OF DISCHARGE: 09/06/2020 DISCHARGE DIAGNOSES: 1. Acute hypoxic respiratory failure secondary to COVID pneumonia. 2. Chronic obstructive pulmonary disease exacerbation. 3. Severe deconditioning. 4. Obesity. 5. Anemia. 6. Type 2 diabetes. HOSPITAL COURSE: The patient is a 60-year-old female, who initially presented to the hospital with complaints of shortness of breath. She was noted to be positive for COVID pneumonia. The patient received remdesivir for 5 days. She was initially put on steroids and her inflammatory markers started to improve. She, however, started having more shortness of breath. She normally, at baseline, is on 2 L of nasal cannula. She was requiring 4. At this time, her steroid doses were increased because she states that normally in her COPD exacerbation, she required high doses of steroids. At this time, high doses of steroids were started on this patient. She continued to improve through the hospital stay and at this time, she required more long-term tapering of steroids and also because of physical deconditioning, a swing bed was recommended for this patient. She does have a colostomy, had a little bit of constipation, however, that was resolved. HOME MEDICATIONS: Will be Tylenol as needed, albuterol 2 puffs q.4 hours as needed, Tessalon Perles 100 mg q.6 hours as needed, Lovenox 40 mg b.i.d. and I have continued this at the swing bed, high risk for DVTs for this patient, Pepcid 20 mg b.i.d. MiraLAX 17 g b.i.d., Florastor 250 daily, Mucinex 600 mg b.i.d., methylprednisolone 40 mg t.i.d., Pepcid 20 mg b.i.d., lisinopril 2.5 daily, metoprolol 25 mg b.i.d., Xanax 0.25 b.i.d., DuoNeb 3 mL neb q.i.d., Glucophage 500 mg b.i.d. p.r.n., Lasix 20 mg as needed, and Senokot as needed. DISCHARGE PHYSICAL EXAMINATION: VITAL SIGNS: Temperature 98.0, heart rate 80, respiratory rate 20, sats 97% on 4 L, blood pressure 143/69. GENERAL: She is awake, alert, oriented x3. Does not appear in distress. CV: S1, S2 present. No murmurs, rubs, or gallops. ASSESSMENT AND PLAN: I have recommended her steroids to be tapered off. I initially wanted to taper it off, however, patient wanted to keep it on for another day because she was starting feeling better. As I mentioned, her inflammatory markers have completely improved. Her inflammatory marker is 0.50. However, her sugars were uncontrolled. Recommend high-dose Humalog and also sliding scale. The patient will require long-term slow tapering off the steroids and oxygenation. She is a very high risk for rebound. Job ID: [id number]
== END 2020-09-06 17:10 | disposition swing bed (61) | DRG 177 ==
LOC: ERS 16:45 → 2SW 18:07
PROVIDERS: ADMIT Internal Medicine; ATTEND Internal Medicine
PROC: XW033E5 Introduction of Remdesivir Anti-infective into Peripheral Vein, Percutaneous Approach, New Technology Group 5 (ICD-10-PCS; principal; 2020-08-28)
DX: U07.1 COVID-19 (principal); J96.21 Acute and chronic respiratory failure with hypoxia; J12.89 Other viral pneumonia; J44.1 Chronic obstructive pulmonary disease with (acute) exacerbation; J44.0 Chronic obstructive pulmonary disease with (acute) lower respiratory infection; I25.10 Atherosclerotic heart disease of native coronary artery without angina pectoris; F32.9 Major depressive disorder, single episode, unspecified; I11.0 Hypertensive heart disease with heart failure; E66.9 Obesity, unspecified; I50.9 Heart failure, unspecified; E11.9 Type 2 diabetes mellitus without complications; D64.9 Anemia, unspecified; Z93.3 Colostomy status; Z98.51 Tubal ligation status; Z87.891 Personal history of nicotine dependence; Z90.49 Acquired absence of other specified parts of digestive tract; Z98.890 Other specified postprocedural states; Z88.2 Allergy status to sulfonamides; Z79.899 Other long term (current) drug therapy; Z79.51 Long term (current) use of inhaled steroids; Z68.30 Body mass index [BMI] 30.0-30.9, adult; R53.81 Other malaise; K59.00 Constipation, unspecified
CPT/HCPCS: 36415; 36416; 71045; 74022; 80048; 80053; 80076; 82728; 83605; 83615; 83880; 85025; 86140; 93005; J0456; J0692; J1650; J1940; J2405; J2920; J3490; J7050; U0002

== ENCOUNTER 2020-09-23 21:55 | Inpatient (IN) | payer MEDICARE ==
[2020-09-23 22:36] LABS: Hemoglobin 12.2 g/dL (12.0-16.0); Mean Corpuscular Hemoglobin 28.5 pg (27.0-31.0); Mean Corpuscular Volume 91.3 fL (78.0-98.0); White Blood Cell (WBC) Count 24.7 thou/uL (4.8-10.8)
[2020-09-23 22:37] LABS: Mean Corpuscular HGB CONC 31.2 g/dL (32.0-36.0); Mean Platelet Volume 7.7 fL (7.4-10.4); Platelet Count 246 thou/uL (130-400); RBC Distribution Width 14.3 % (11.5-14.5)
[2020-09-23 22:51] LABS: Actual Bicarbonate (HCO3a) 24.6 mEq/L (22-28); Analyzer IN Cardio ER; Base Excess (BEa) 0.7 mEq/L (-2.0 to +3.0); CO2 Tension 37.1 mmHg (35.0-45.0); Calcium, Ionized (arterial) 1.23 mmol/L (1.12-1.30); Carboxyhemoglobin (COHb) 0.4 gm% (0.0-3.0); Hemoglobin (Hb) 12.8 g/dL (12.0-16.0); O2 Tension (PaO2), arterial 88.9 mmHg (80.0-100.0); Potassium - ABG Lab 4.39 mmol/L (3.70-5.30); pH, Arterial 7.44 (7.35-7.45)
[2020-09-23 22:53] LABS: Band 8 % (5-11); Lymphocytes 2 % (21-51); Monocytes 1 % (0-10); Neutrophil 88 % (42-75); Reactive Lymphocytes 1 % (0-10)
[2020-09-23 22:53] LABS: Bacteria/HPF None Seen HPF (None Seen); Bilirubin Negative (Negative); Blood, Urine 1+ (Negative); Clarity Clear (Clear); Glucose, Urine (Dipstick) Normal (Negative); Ketone, Urine Negative (Negative); Leukocyte Negative Leu/uL (Negative); Nitrite Negative (Negative); Protein, Urine (Dipstick) 30 mg/dL (Neg-Trace); Specific Gravity, Urine 1.045 (1.002-1.036); Squamous Epithelial 0-3 HPF (0-3); Urobilinogen Normal mg/dL (Less than 2); WBC/HPF 0-3 HPF (0-3); pH, Urine 6.5 (5.0-9.0)
[2020-09-23 22:59] LABS: Puncture Site LRA
[2020-09-23 23:04] LABS: Chloride 95 mmol/L (98-107); Potassium 4.5 mmol/L (3.5-5.1); Sodium 133 mmol/L (136-145)
[2020-09-23 23:05] LABS: Anion Gap 17 mmol/L (10-20); BUN (Urea Nitrogen) 26 mg/dL (9.8-20.1); Bilirubin, Total 0.4 mg/dL (0.2-1.2); Calc. Creatinine Clearance 0 mL/min (70-130); Calcium 9.8 mg/dL (7.8-10.44); Carbon Dioxide 26 mmol/L (22-29); Glucose 108 mg/dL (70-105)
[2020-09-23 23:06] LABS: Protein, Total 7.2 g/dL (6.0-8.3)
[2020-09-23 23:08] LABS: Albumin 3.3 g/dL (3.5-5.0); Globulin 3.9 g/dL (2.4-3.5)
[2020-09-23 23:10] LABS: ALT (SGPT) 31 U/L (8-55); AST (SGOT) 13 U/L (5-34); Alkaline Phosphatase 75 U/L (40-110); MDiff Complete? YES
[2020-09-23] MEDS ORDERED: Cefepime 2 GM VIAL ONE (23:14)
[2020-09-23] MEDS ORDERED: Magnesium 2 GM/50 ML BAG (IN WATER) ONE (23:14)
[2020-09-23] MEDS ORDERED: Ventilator Sedation Protocol 1 EACH FS SCH (23:45)
[2020-09-23] MEDS ORDERED: Rocuronium Bromide 10 MG/ML (10ML VIAL) ONE (23:54)
[2020-09-23] MEDS ORDERED: Ketamine 50 MG/ML (10ML VIAL) ONE (23:54)
[2020-09-23] MEDS ORDERED: Acetaminophen 325 MG Suppository PR PRN (23:57)
[2020-09-24] MEDS ORDERED: Propofol 1,000 MG/100 ML VIAL IV ONE (00:08)
--- NOTE | 2020-09-24 00:15 | PDOC.BPN ---
- Brief Progress Note [id number] dictaated
[2020-09-24] MEDS ORDERED: Fentanyl BOLUS 250 ML IVPB PRN (00:30)
[2020-09-24] MEDS ORDERED: Morphine 2 MG/ML VIAL SLOW IVP PRN (00:30)
[2020-09-24] MEDS ORDERED: Propofol BOLUS 1,000 MG/100 ML VIAL IV PRN (00:30)
[2020-09-24] MEDS ORDERED: Vancomycin 1 GM/200 ML BAG ONE (00:36)
[2020-09-24 01:21] LABS: Actual Bicarbonate (HCO3a) 20.5 mEq/L (22-28); Analyzer IN Cardio ER; Base Excess (BEa) -5.1 mEq/L (-2.0 to +3.0); CO2 Tension 39.8 mmHg (35.0-45.0); Calcium, Ionized (arterial) 1.23 mmol/L (1.12-1.30); Carboxyhemoglobin (COHb) 0.2 gm% (0.0-3.0); Hemoglobin (Hb) 12.7 g/dL (12.0-16.0); O2 Tension (PaO2), arterial 81.7 mmHg (80.0-100.0); Potassium - ABG Lab 4.31 mmol/L (3.70-5.30); pH, Arterial 7.33 (7.35-7.45)
[2020-09-24 01:23] LABS: Puncture Site LRA
[2020-09-24 02:18] LABS: Troponin I 0.027 ng/mL (< 0.028)
[2020-09-24 04:47] LABS: Troponin I 0.023 ng/mL (< 0.028)
--- NOTE | 2020-09-24 04:52 | HP ---
CHIEF COMPLAINT: Respiratory failure/shortness of breath. HISTORY OF PRESENT ILLNESS: Ms. Werner is a 60-year-old female with past medical history of COPD, coronary artery disease, congestive heart failure, peripheral vascular disease, was recently diagnosed with COVID pneumonia, is being transferred from [place] after she was discharged from our hospital after being treated for COPD exacerbation and pneumonia. For the last three days, the patient has been increasingly short of breath. Also, she has worsening cough and chest pain. No vomiting or diarrhea. Reportedly transferred the patient to our medical facility for worsening respiratory status. In the emergency room, the patient was continued on BiPAP, the patient is in apparent respiratory distress, using her accessory muscles of respiration. I discussed the case with the ED physician and we agreed to intubate the patient and place the patient on mechanical ventilator. CT of the chest was done which was negative for PE, but did show a new/worsening right upper lobe consolidation/pneumonia. In the emergency room, the patient was given IV cefepime and vancomycin and earlier she was given levofloxacin. The patient also was given IV Solu-Medrol. The patient is being admitted to the hospital for further management. PAST MEDICAL HISTORY: As mentioned above in history of present illness. PAST SURGICAL HISTORY: 1. Colostomy. 2. Appendectomy. 3. Tubal ligation. 4. Colon resection. 5. Cervical fusion, C4 and C5. SOCIAL HISTORY: Denies alcohol drinking. She is a former smoker, (quit smoking two years ago). FAMILY HISTORY: Reviewed and noncontributory. ALLERGIES: ALLERGIC TO SULFA. CURRENT MEDICATIONS: See home medication reconciliation form for medications. REVIEW OF SYSTEMS: Unable to obtain due to patient's respiratory distress. PHYSICAL EXAMINATION: GENERAL: The patient is awake, alert, in severe respiratory distress, on BiPAP, using accessory muscles of respiration. VITAL SIGNS: Blood pressure is 137/78, pulse of 120, respiratory rate is 30, temperature is 100, and oxygen saturation in the 90s, on BiPAP. HEAD AND NECK: Normocephalic, atraumatic. NECK: Supple. CHEST: Decreased air entry bilaterally with prolonged expiratory phase and respirations are severely labored. HEART: S1, S2. Regular, tachycardic. ABDOMEN: Mildly distended. Bowel sounds present. NEUROLOGIC: Awake, alert, moving extremities. PSYCH: Unable to assess. EXTREMITIES: No clubbing, no cyanosis. GENITOURINARY: No suprapubic tenderness. No flank tenderness. LABORATORY DATA: WBC count is elevated at 24.7, hemoglobin 12.2, platelets 246. Sodium is 133, potassium 4.5, BUN 26, creatinine 0.7, glucose 108. CT of the chest as mentioned above in history of present illness. ASSESSMENT AND PLAN: 1. Acute on chronic respiratory failure. 2. Pneumonia/healthcare associated? 3. COVID-19 virus infection, recently diagnosed. 4. Chronic obstructive pulmonary disease exacerbation. 5. Coronary artery disease. 6. Congestive heart failure. PLAN: 1. Admit to CCU. 2. The patient is going to be intubated by ED physician. We will continue with full ventilator support. 3. Septic workup including blood cultures done in the ED. 4. IV antibiotics, broad spectrum, given the consolidation picture and bacterial infection is a possibility. We will continue with vancomycin and cefepime. 5. Bronchodilators scheduled and as needed. 6. IV steroids. 7. Consult Pulmonary for critical care management and ventilator management. 8. Reconcile home medications. 9. DVT prophylaxis as appropriate. 10. GI prophylaxis as appropriate. 11. Expected length of stay, 2 midnights or more. Job ID: [id number]
[2020-09-24] MEDS: Propofol 1,000 MG/100 ML VIAL IV PRN ×3 (05:40→20:25)
[2020-09-24] MEDS ORDERED: methylPREDNISolone Sod Succ/PF 125 MG/2 ML VIAL IVP SCH (06:00)
[2020-09-24] MEDS: Famotidine/PF 20 mg/2ml Vial SLOW IVP SCH ×2 (07:23→20:25)
[2020-09-24] MEDS: Heparin 5,000 UNITS/ML VIAL SC SCH ×2 (07:24→20:36)
--- NOTE | 2020-09-24 07:52 | RAD ---
Portable frontal chest radiograph: 09/24/2020 COMPARISON: 09/20/2020 HISTORY: Shortness of breath, dyspnea, COPD FINDINGS: Endotracheal tube and nasogastric tube present, in proper position. There is extensive inte rstitial opacity within the right lung base, worsened. There has been interval worsening in a focal area of consolidation within the right perihilar region/right lung base suggesting worsening infectio us pneumonitis/aspiration. Findings are better assessed on 09/23/[address] Supine positioning limits assessment for pneumothorax and pleural fluid. No pneumothorax is evident. IMPRESSION: Lines and tubes as detailed above. Dense area of consolidation in the superior segment ri ght lower lobe region suggest pneumonia/aspiration, significantly worsened since the prior exam. Follow-up imaging to document resolution advised.
[2020-09-24] MEDS ORDERED: Vancomycin 1 GM in Premix Bag 1 BAG IVPB SCH (09:00)
[2020-09-24] MEDS: Cefepime 2 GM in Sodium Chloride 0.9% 100 ML IVPB SCH ×2 (12:42→23:12)
[2020-09-24] MEDS: Vancomycin HCl 750 MG in Sodium Chloride 0.9% 250 ML 250 ML IVPB SCH (12:44)
[2020-09-24] MEDS: methylPREDNISolone Sod Succ 40 MG VIAL IVP SCH ×3 (12:45→23:13)
--- NOTE | 2020-09-24 18:21 | PDOC.HOSPP ---
- Subjective Encounter Date: 09/24/20 Encounter Time: 11:00 Subjective: Patient was seen and examined in bed. She was ventilator support. Intubated at presentation in the ED - Objective Vital Signs & Weight: Vital Signs (12 hours) Temp Pulse Resp Pulse Ox 09/24/20 16:00 99 F 20 09/24/20 14:00 20 09/24/20 13:37 110 H 09/24/20 12:00 98.9 F 20 09/24/20 10:41 108 H 09/24/20 10:00 20 09/24/20 08:16 100 09/24/20 08:00 98.3 F 20 99 Weight Admit Weight 165 lb Weight 165 lb 6.4 oz Most Recent Monitor Data Heart Rate from ECG 108 NIBP 111/71 NIBP BP-Mean 84 Respiration from ECG 20 SpO2 100 I&O: 09/23/20 09/24/20 09/25/20 06:59 06:59 06:59 Intake Total 60.1 250 Output Total 545 Balance 60.1 -295 Result Diagrams: 09/23/20 22:15 09/23/20 22:15 Hospitalist ROS - Medication Medications: Active Medications Generic Name Dose Route Start Last Admin Trade Name Freq PRN Reason Stop Dose Admin Albuterol/Ipratropium 3 ml 09/24/20 01:00 09/24/20 13:35 Ipratropium/Albuterol Sulfate 3 Ml Neb NEB 3 ml [id number] SAMUEL Administration Famotidine 20 mg 09/24/20 09:00 09/24/20 07:23 Famotidine/Pf 20 Mg/2ml Vial SLOW IVP 20 mg Q12HR SAMUEL Administration Heparin Sodium (Porcine) 5,000 units 09/24/20 09:00 09/24/20 07:24 Heparin 5,000 Units/Ml Vial SC 5,000 units BID SAMUEL Administration Cefepime HCl 2 gm/ Sodium 100 mls @ 200 mls/hr 09/24/20 12:00 09/24/20 12:42 Chloride IVPB 100 mls 1200,2359 SAMUEL Administration Vancomycin HCl 750 mg/ Sodium 250 mls @ 250 mls/hr 09/24/20 13:00 09/24/20 1 2:44 Chloride IVPB 250 mls 0100,1300 SAMUEL Administration Methylprednisolone Sodium Succinate 40 mg 09/24/20 12:00 09/24/20 17:53 Methylprednisolone Sod Succ 40 Mg Vial IVP 40 mg Q6HR SAMUEL Administration Propofol 1,000 mg 09/24/20 00:30 09/24/20 12:44 Propofol 1,000 Mg/100 Ml Vial IV 10/24/20 00:30 1,000 mg INF PRN Administration TO ACHIEVE GOAL RASS Protocol Sodium Chloride 10 ml 09/24/20 09:00 09/24/20 07:24 Flush - Normal Saline 10 Ml Syringe IVF 10 ml Q12HR SAMUEL Administration - Exam General - other findings: Intubated on vent support Heart: RRR, no murmur, no gallops, no rubs Respiratory - other findings: Reduced air entry bilaterally. Patient on vent Gastrointestinal: soft, non-distended, normal bowel sounds Gastrointestinal - other findings: Subumbilical scar present. Colostomy bag present Extremities: no cyanosis, no clubbing, no edema Neurological - other findings: Patient obtunded. Psychiatric - other findings: Unable to assess. Hosp A/P - Plan This is a 60-year-old female patient with a history of COPD, recent Covid [id number]/5/2020, who was transferred from [place] for worsening shortness of breath. We have CT chest showing right upper lobe consolidation At presentation she was intubated and transferred to the ICU. Acute hypoxic respiratory failure Secondary to pneumonia in the setting of recent Covid infection. Continue vancomycin and cefepime Steroids As needed bronchodilators Continue ventilator support Appreciate pulmonology input Right upper lobe pneumonia Continue antibiotics tomorrow Follow-up on blood cultures. Pulmonology consulted. Recent Covid infection Will monitor closely. Possible COPD exacerbation As needed duo nebs/Solu-Medrol/antibiotics Continue monitoring. VT prophylaxisLovenox CODE STATUSDNRdiscussed with spouse.
[2020-09-24] MEDS: fentaNYL Citrate/PF 2,000 MCG in Sodium Chloride 0.9% 60 ML IV SCH (18:22)
--- NOTE | 2020-09-24 19:03 | CON ---
DATE OF CONSULTATION: 09/24/2020 HISTORY OF PRESENT ILLNESS: Batsheva Werner is a very pleasant 60-year-old female, who has been in the hospital more than she has been out of the hospital since July. She was admitted in early July with a COPD exacerbation. Then, she was admitted in early August with COVID induced COPD exacerbation and pneumonia. She recovered from that and now has been admitted with respiratory failure. She is intubated. Chest x-ray shows right hilar alveolar infiltrate, may correspond to the superior segment of the right lower lobe. PAST MEDICAL HISTORY: Remarkable for; 1. COPD. She has been abstinent from smoking for couple of years. 2. History of cardiomyopathy in the past. 3. Peripheral vascular disease. 4. History of laparotomy for bowel perforation. 5. History of appendectomy. 6. History of tubal ligation. 7. History of cervical spine surgery. SOCIAL HISTORY: She is a nonsmoker, rare drinker. ALLERGIES: SHE REPORTS ALLERGIES TO SULFA. FAMILY HISTORY: Negative for lung disease in early age. REVIEW OF SYSTEMS: Not obtainable. PHYSICAL EXAMINATION: VITAL SIGNS: Respiratory rate is 20, FiO2 is at 40%, heart rate 116, blood pressure 130/78. HEENT: Pupils are equal. Sclerae are anicteric. NECK: Supple. LUNGS: Clear and distant with a long expiratory phase. HEART: Regular rhythm. S1 and S2 are normal. ABDOMEN: Soft and nontender. EXTREMITIES: No clubbing, cyanosis, or edema. LABORATORY DATA: White count yesterday is 24.7, hemoglobin 12.2, platelets 246. Electrolytes are essentially unremarkable. Creatinine is 0.7. IMPRESSION AND PLAN: Pneumonia after COVID, is likely bacterial. There is no reason to keep her in a COVID isolation. Agree with empiric broad antimicrobial coverage until cultures come back. We will follow with the other physicians caring for. Critical care time, 30 minutes. Job ID: [id number] [facility] CENTERKacey
[2020-09-25] MEDS: Vancomycin HCl 750 MG in Sodium Chloride 0.9% 250 ML 250 ML IVPB SCH ×2 (00:24→13:00)
[2020-09-25] MEDS: Propofol 1,000 MG/100 ML VIAL IV PRN ×4 (03:43→23:34)
[2020-09-25 04:07] LABS: ALT (SGPT) 20 U/L (8-55); AST (SGOT) 9 U/L (5-34); Albumin 2.4 g/dL (3.5-5.0); Alkaline Phosphatase 57 U/L (40-110); Anion Gap 17 mmol/L (10-20); BUN (Urea Nitrogen) 27 mg/dL (9.8-20.1); Bilirubin, Total 0.2 mg/dL (0.2-1.2); Calc. Creatinine Clearance 96 mL/min (70-130); Calcium 8.7 mg/dL (7.8-10.44); Carbon Dioxide 22 mmol/L (22-29); Chloride 102 mmol/L (98-107); Globulin 3.2 g/dL (2.4-3.5); Glucose 362 mg/dL (70-105); Potassium 4.8 mmol/L (3.5-5.1); Protein, Total 5.6 g/dL (6.0-8.3); Sodium 136 mmol/L (136-145)
[2020-09-25 05:01] LABS: Hemoglobin 9.8 g/dL (12.0-16.0); Mean Corpuscular HGB CONC 30.8 g/dL (32.0-36.0); Mean Corpuscular Hemoglobin 28.6 pg (27.0-31.0); Mean Platelet Volume 7.6 fL (7.4-10.4); Platelet Count 198 thou/uL (130-400); RBC Distribution Width 14.4 % (11.5-14.5); Red Blood Cell (RBC) Count 3.43 mill/uL (4.20-5.40); White Blood Cell (WBC) Count 14.3 thou/uL (4.8-10.8)
[2020-09-25 05:02] LABS: Band 17 % (5-11); Lymphocytes 1 % (21-51); MDiff Complete? YES; Monocytes 3 % (0-10); Neutrophil 79 % (42-75)
[2020-09-25] MEDS: methylPREDNISolone Sod Succ 40 MG VIAL IVP SCH ×4 (05:53→23:34)
--- NOTE | 2020-09-25 07:58 | RAD ---
Portable frontal chest radiograph: 09/25/2020 COMPARISON: 09/24/2020 HISTORY: Pneumonia FINDINGS: Stable endotracheal tube and nasogastric tube. Stable dense consolidation in the mid right lung zone with hazy airspace disease in the right lung base. No pneumothorax. Stable mild increased linear density in the left base. IMPRESSION: No significant interval change.
[2020-09-25] MEDS: Famotidine/PF 20 mg/2ml Vial SLOW IVP SCH ×2 (09:32→20:36)
[2020-09-25] MEDS: Heparin 5,000 UNITS/ML VIAL SC SCH ×2 (09:32→20:36)
[2020-09-25] MEDS: Cefepime 2 GM in Sodium Chloride 0.9% 100 ML IVPB SCH ×2 (12:20→23:34)
[2020-09-25 12:34] LABS: Vancomycin, Trough 11.4 ug/mL
[2020-09-25] MEDS: Vancomycin 1 GM in Premix Bag 1 BAG IVPB SCH (13:57)
[2020-09-25] MEDS: fentaNYL Citrate/PF 2,000 MCG in Sodium Chloride 0.9% 60 ML IV SCH (14:55)
--- NOTE | 2020-09-25 17:25 | PDOC.HOSPP ---
- Subjective Encounter Date: 09/25/20 Encounter Time: 11:53 Subjective: Patient was seen and examined in bed. She was on ventilator support however awake and follows instructions. She was able to write on a sheet of paper - Objective Vital Signs & Weight: Vital Signs (12 hours) Temp Pulse Resp 09/25/20 14:03 105 H 09/25/20 12:00 99.0 F 20 09/25/20 10:35 109 H 09/25/20 10:00 23 H 09/25/20 09:00 99.0 F 09/25/20 08:00 20 09/25/20 07:33 93 09/25/20 04:00 98.5 F Weight Admit Weight 165 lb Weight 157 lb 10.088 oz Most Recent Monitor Data Heart Rate from ECG 120 NIBP 140/87 NIBP BP-Mean 104 Respiration from ECG 24 SpO2 97 I&O: 09/24/20 09/25/20 09/26/20 06:59 06:59 06:59 Intake Total 60.1 1386.5 158 Output Total 1130 258 Balance 60.1 256.5 -100 Result Diagrams: 09/25/20 03:30 09/25/20 03:30 Hospitalist ROS - Medication Medications: Active Medications Generic Name Dose Route Start Last Admin Trade Name Freq PRN Reason Stop Dose Admin Albuterol/Ipratropium 3 ml 09/24/20 01:00 09/25/20 14:03 Ipratropium/Albuterol Sulfate 3 Ml Neb NEB 3 ml [id number] SAMUEL Administration Famotidine 20 mg 09/24/20 09:00 09/25/20 09:32 Famotidine/Pf 20 Mg/2ml Vial SLOW IVP 20 mg Q12HR SAMUEL Administration Heparin Sodium (Porcine) 5,000 units 09/24/20 09:00 09/25/20 09:32 Heparin 5,000 Units/Ml Vial SC 5,000 units BID SAMUEL Administration Cefepime HCl 2 gm/ Sodium 100 mls @ 200 mls/hr 09/24/20 12:00 09/25/20 12:20 Chloride IVPB 100 mls 1200,2359 SAMUEL Administration Fentanyl Citrate 2,000 mcg/ 100 mls @ 0 mls/hr 09/24/20 00:15 09/24/20 18:22 Sodium Chloride IV 10/24/20 00:15 100 mls INF SAMUEL Administration Protocol Per Protocol Vancomycin HCl 1 gm/ Device 200 mls @ 200 mls/hr 09/25/20 14:00 09/25/20 13:57 IVPB 200 mls 0200,1400 SAMUEL Administration Methylprednisolone Sodium Succinate 40 mg 09/24/20 12:00 09/25/20 12:23 Methylprednisolone Sod Succ 40 Mg Vial IVP 40 mg Q6HR SAMUEL Administration Propofol 1,000 mg 09/24/20 00:30 09/25/20 10:39 Propofol 1,000 Mg/100 Ml Vial IV 10/24/20 00:30 1,000 mg INF PRN Administration TO ACHIEVE GOAL RASS Protocol Sodium Chloride 10 ml 09/24/20 09:00 09/25/20 09:33 Flush - Normal Saline 10 Ml Syringe IVF 10 ml Q12HR SAMUEL Administration - Exam General Appearance: awake alert General - other findings: Unable to speak since on vent Heart: RRR, no murmur, no gallops Respiratory - other findings: Reduced air entry bilaterally. Scattered wheezes Gastrointestinal: soft, non-tender, non-distended, normal bowel sounds Gastrointestinal - other findings: Colostomy bag in place surgical incision Extremities: no cyanosis, no clubbing, no edema Neurological - other findings: No focal deficits Psychiatric - other findings: Alert and oriented Hosp A/P - Plan This is a 60-year-old female patient with a history of COPD, recent Covid [id number]/5/2020, who was transferred from [place] for worsening shortness of breath. CT chest showing right upper lobe consolidation At presentation she was intubated and transferred to the ICU. She is awake now and following commands. Be evaluated and possible assess for possible extubation later today. Acute hypoxic respiratory failure Secondary to pneumonia in the setting of recent Covid infection. Continue vancomycin and cefepime Steroids As needed bronchodilators Continue ventilator support Appreciate pulmonology input Right upper lobe pneumonia Continue antibiotics tomorrow No growth on cultures of Pulmonology following Recent Covid infection Will monitor closely. Possible COPD exacerbation As needed duo nebs/Solu-Medrol/antibiotics Continue monitoring. S/p colostomy No excoriation noted VT prophylaxisLovenox CODE STATUSDNRdiscussed with spouse.
--- NOTE | 2020-09-25 18:53 | PRG ---
DATE OF SERVICE: 09/25/2020 SUBJECTIVE: Batsheva Werner awaken. She nods appropriately to all questions. Her hemodynamics are stable. We have decreased her ventilatory support today. OBJECTIVE: LUNGS: Clear anteriorly. She still has a long expiratory phase, but I am sure she at baseline has a long expiratory phase. HEART: Regular rhythm. ABDOMEN: Soft. LABORATORY DATA: White count is 14.3, hemoglobin 9.8, platelets 198. Electrolytes are unremarkable. BUN 27, creatinine 0.75. Potassium is normal. Albumin is 2.4. IMPRESSION: 1. Pneumonia. 2. Advanced chronic obstructive pulmonary disease. 3. Respiratory failure. 4. Do not resuscitate status. PLAN: Apparently, conversation was had with the and this decision was made. I have explained to her that I do not see her expiring this admission, unless something totally unanticipated happens. I suspect within a few days we will wean her from mechanical ventilation. Critical care time 30 min. Job ID: [id number] MTDD
[2020-09-26] MEDS: Vancomycin 1 GM in Premix Bag 1 BAG IVPB SCH (02:24)
[2020-09-26 04:55] LABS: ALT (SGPT) 20 U/L (8-55); AST (SGOT) 9 U/L (5-34); Albumin 2.6 g/dL (3.5-5.0); Alkaline Phosphatase 59 U/L (40-110); Anion Gap 15 mmol/L (10-20); BUN (Urea Nitrogen) 31 mg/dL (9.8-20.1); Bilirubin, Total 0.2 mg/dL (0.2-1.2); Calc. Creatinine Clearance 87 mL/min (70-130); Calcium 9.1 mg/dL (7.8-10.44); Carbon Dioxide 25 mmol/L (22-29); Chloride 100 mmol/L (98-107); Globulin 3.4 g/dL (2.4-3.5); Glucose 474 mg/dL (70-105); Potassium 5.1 mmol/L (3.5-5.1); Sodium 135 mmol/L (136-145)
[2020-09-26 05:37] LABS: Band 6 % (5-11); Hemoglobin 9.6 g/dL (12.0-16.0); Lymphocytes 3 % (21-51); MDiff Complete? YES; Mean Corpuscular HGB CONC 31.3 g/dL (32.0-36.0); Mean Corpuscular Hemoglobin 29.3 pg (27.0-31.0); Mean Corpuscular Volume 93.5 fL (78.0-98.0); Mean Platelet Volume 8.1 fL (7.4-10.4); Monocytes 3 % (0-10); Neutrophil 88 % (42-75); Platelet Count 223 thou/uL (130-400); RBC Distribution Width 14.4 % (11.5-14.5); Red Blood Cell (RBC) Count 3.29 mill/uL (4.20-5.40); White Blood Cell (WBC) Count 12.3 thou/uL (4.8-10.8)
[2020-09-26] MEDS: Propofol 1,000 MG/100 ML VIAL IV PRN ×3 (05:55→16:01)
[2020-09-26] MEDS: methylPREDNISolone Sod Succ 40 MG VIAL IVP SCH ×3 (05:55→17:19)
[2020-09-26 07:10] LABS: Actual Bicarbonate (HCO3a) 26.1 mEq/L (22-28); Base Excess (BEa) -1.2 mEq/L (-2.0 to +3.0); CO2 Tension 54.3 mmHg (35.0-45.0); Calcium, Ionized (arterial) 1.29 mmol/L (1.12-1.30); Carboxyhemoglobin (COHb) 0.9 gm% (0.0-3.0); Hemoglobin (Hb) 13.8 g/dL (12.0-16.0); Potassium - ABG Lab 5.13 mmol/L (3.70-5.30)
[2020-09-26 07:12] LABS: ALV-art Gradient 146.325 mmHg (0-20); Puncture Site RBA
--- NOTE | 2020-09-26 09:02 | RAD ---
PORTABLE CHEST: Date: 09/26/2020 HISTORY: Respiratory distress. COMPARISON: Prior day's study. FINDINGS: Endotracheal and NG tubes are in satisfactory position. The density in the right mid lung field and c hanges in the right lung base are all stable. IMPRESSION: Stable exam. POS: DENIS
[2020-09-26] MEDS: Heparin 5,000 UNITS/ML VIAL SC SCH ×2 (09:12→20:11)
[2020-09-26] MEDS: Famotidine/PF 20 mg/2ml Vial SLOW IVP SCH ×2 (09:12→20:11)
[2020-09-26] MEDS: fentaNYL Citrate/PF 2,000 MCG in Sodium Chloride 0.9% 60 ML IV SCH (09:42)
[2020-09-26] MEDS ORDERED: Dextrose 5% in Water 1,000 ML IV PRN (10:00)
[2020-09-26] MEDS ORDERED: Dextrose 50% Abboject 50 ML SYRINGE SLOW IVP PRN (10:00)
[2020-09-26] MEDS ORDERED: Insulin Glargine 20 UNITS in Pre-Filled Syringe 1 EACH SC SCH (10:30)
[2020-09-26] MEDS: Insulin Regular 300 UNITS/3 ML VIAL SC PRN ×2 (11:19→17:24)
[2020-09-26] MEDS: Cefepime 2 GM in Sodium Chloride 0.9% 100 ML IVPB SCH (11:20)
--- NOTE | 2020-09-26 16:49 | PRG ---
DATE OF SERVICE: 09/26/2020 SUBJECTIVE: Batsheva remains mechanically ventilated. OBJECTIVE: VITAL SIGNS: She is afebrile, heart rates in the teens, blood pressure 129/73. LUNGS: Clear anteriorly. She has a very prolonged expiratory phase. HEART: Regular rhythm. ABDOMEN: Soft. LABORATORY DATA: Cultures remain negative. White count 12.3, hemoglobin 9.6, platelets 223. Electrolytes are unremarkable. Glucose is 474. PH 7.3, CO2 of 54, pO2 of 71. IMPRESSION: Respiratory failure secondary predominantly to chronic obstructive pulmonary disease exacerbation on top of pneumonia. This is relatively small necrotizing pneumonia. We will continue this will be a slow weaning since she has been in the hospital on and off for the last 2 months. Critical care time 30 min. Job ID: [id number] MTDD
--- NOTE | 2020-09-26 18:10 | PDOC.HOSPP ---
- Subjective Encounter Date: 09/26/20 Subjective: Patient seen and examined at bedside. At time of my exam patient is asleep intubated/sedated. EHR reviewed. - Objective Vital Signs & Weight: Vital Signs (12 hours) Temp Pulse Resp BP Pulse Ox 09/26/20 16:00 98.5 F 19 09/26/20 15:07 96 129/73 09/26/20 14:00 14 09/26/20 13:41 81 15 09/26/20 11:29 90 126/86 09/26/20 11:28 14 09/26/20 11:27 98.4 F 09/26/20 10:00 16 09/26/20 08:00 99.0 F 16 96 09/26/20 06:50 85 139/62 Weight Admit Weight 165 lb Weight 158 lb 4.8 oz Most Recent Monitor Data Heart Rate from ECG 110 NIBP 135/87 NIBP BP-Mean 103 Respiration from ECG 20 SpO2 98 I&O: 09/25/20 09/26/20 09/27/20 06:59 06:59 06:59 Intake Total 1386.5 1560.5 554 Output Total 1130 1086 550 Balance 256.5 474.5 4 Result Diagrams: 09/26/20 03:45 09/26/20 03:45 Additional Labs: Accuchecks 09/26/20 09/26/20 17:23 10:12 POC Glucose 389 H 329 H Hospitalist ROS - Review of Systems ROS unobtainable: due to endotracheal tube - Medication Medications: Active Medications Generic Name Dose Route Start Last Admin Trade Name Freq PRN Reason Stop Dose Admin Albuterol/Ipratropium 3 ml 09/24/20 01:00 09/26/20 13:41 Ipratropium/Albuterol Sulfate 3 Ml Neb NEB 3 ml [id number] SAMUEL Administration Famotidine 20 mg 09/24/20 09:00 09/26/20 09:12 Famotidine/Pf 20 Mg/2ml Vial SLOW IVP 20 mg Q12HR SAMUEL Administration Heparin Sodium (Porcine) 5,000 units 09/24/20 09:00 09/26/20 09:12 Heparin 5,000 Units/Ml Vial SC 5,000 units BID SAMUEL Administration Cefepime HCl 2 gm/ Sodium 100 mls @ 200 mls/hr 09/24/20 12:00 12/10/20 11:20 Chloride IVPB 100 mls 1200,2359 SAMUEL Administration Fentanyl Citrate 2,000 mcg/ 100 mls @ 0 mls/hr 09/24/20 00:15 09/26/20 09:42 Sodium Chloride IV 10/24/20 00:15 100 mls INF SAMUEL Administration Protocol Per Protocol Insulin Human Regular 0 units 09/26/20 10:00 09/26/20 17:24 Insulin Regular 300 Units/3 Ml Vial SC 10 unit .MODERATE SLIDING SC PRN Administration Moderate Correctional Scale Methylprednisolone Sodium Succinate 40 mg 09/24/20 12:00 09/26/20 17:19 Methylprednisolone Sod Succ 40 Mg Vial IVP 40 mg Q6HR SAMUEL Administration Propofol 1,000 mg 09/24/20 00:30 09/26/20 16:01 Propofol 1,000 Mg/100 Ml Vial IV 10/24/20 00:30 1,000 mg INF PRN Administration TO ACHIEVE GOAL RASS Protocol Sodium Chloride 10 ml 09/24/20 09:00 09/26/20 09:12 Flush - Normal Saline 10 Ml Syringe IVF 10 ml Q12HR SAMUEL Administration - Exam General Appearance: ill appearing General - other findings: During my assessment patient is sedated. Respiratory - other findings: Symetricla breath sounds, diminished b/l Gastrointestinal: soft, non-distended Extremities: no cyanosis, no clubbing, no edema Neurological - other findings: Sedated Hosp A/P - Plan old records reviewed/req A/P: Patient with history of COPD and recent episode of COVID19 back on 08-22-20 currently being treated for super imposed necrotizing PNA. # Acute respiratory failure: In setting of recent COVID19 with super imposed necrotizing PNA and COPD exacerbation. Continue with IV ABX: Cefepime + Vancomycin, IV steroids and brochodilators. Pulmonary critical care directing care. Expecting slow weaning due to poor pulmonary reserve. # Right upper lobe PNA: Continue with IV ABX per above plan. # Recent COVID19 infection: No longer requiring isolation. # COPD exacerbation: Continue with IV steroids + IV ABX. Rest of care per above plan. DISPOSITION: Remains critically ill with guarded prognosis. Continue with treatment in the ICU setting.
[2020-09-26] MEDS: Lorazepam 2 MG/ML VIAL SLOW IVP PRN (20:11)
[2020-09-27] MEDS: Cefepime 2 GM in Sodium Chloride 0.9% 100 ML IVPB SCH ×2 (00:15→12:41)
[2020-09-27] MEDS: methylPREDNISolone Sod Succ 40 MG VIAL IVP SCH ×4 (00:16→18:06)
[2020-09-27] MEDS: fentaNYL Citrate/PF 2,000 MCG in Sodium Chloride 0.9% 60 ML IV SCH ×2 (03:08→19:04)
[2020-09-27] MEDS: Insulin Regular 300 UNITS/3 ML VIAL SC PRN ×4 (05:01→21:30)
[2020-09-27 05:39] LABS: ALT (SGPT) 20 U/L (8-55); AST (SGOT) 11 U/L (5-34); Albumin 2.8 g/dL (3.5-5.0); Alkaline Phosphatase 60 U/L (40-110); Anion Gap 14 mmol/L (10-20); BUN (Urea Nitrogen) 45 mg/dL (9.8-20.1); Band 8 % (5-11); Bilirubin, Total 0.2 mg/dL (0.2-1.2); Calc. Creatinine Clearance 75 mL/min (70-130); Carbon Dioxide 25 mmol/L (22-29); Chloride 103 mmol/L (98-107); Globulin 3.3 g/dL (2.4-3.5); Glucose 510 mg/dL (70-105); Hemoglobin 9.6 g/dL (12.0-16.0); Lymphocytes 7 % (21-51); MDiff Complete? YES; Mean Corpuscular HGB CONC 31.1 g/dL (32.0-36.0); Mean Corpuscular Volume 93.5 fL (78.0-98.0); Metamyelocyte 3 % (0-0); Monocytes 4 % (0-10); Myelocyte 2 % (0-0); Neutrophil 76 % (42-75); Nucleated RBC 1 % (0); Platelet Count 271 thou/uL (130-400); Platelet Morphology Comment Appears Adequate; Potassium 5.4 mmol/L (3.5-5.1); Protein, Total 6.1 g/dL (6.0-8.3); RBC Distribution Width 14.6 % (11.5-14.5); Sodium 137 mmol/L (136-145)
[2020-09-27] MEDS ORDERED: Insulin Glargine 20 UNITS in Pre-Filled Syringe 1 EACH SC SCH (09:00)
[2020-09-27] MEDS: Propofol 1,000 MG/100 ML VIAL IV PRN (09:04)
[2020-09-27] MEDS: Heparin 5,000 UNITS/ML VIAL SC SCH ×2 (09:05→21:29)
[2020-09-27] MEDS: Famotidine/PF 20 mg/2ml Vial SLOW IVP SCH ×2 (09:06→21:29)
--- NOTE | 2020-09-27 09:21 | PRG ---
DATE OF SERVICE: 09/27/2020 SUBJECTIVE: Alphonso remains mechanically ventilated. She has a little deep sedation. We will add Precedex today and see if we start letting her wake up. OBJECTIVE: VITAL SIGNS: Heart rate 73, blood pressure 122/68, FiO2 is at 40%, respiratory rates in the teens, and minute volume is less than 10 L a minute. LUNGS: Distant and clear. HEART: Regular rhythm. ABDOMEN: Soft. EXTREMITIES: Without asymmetry or edema. NEURO: Unchanged, but not assessable with her sedation. IMPRESSION: 1. Chronic obstructive pulmonary disease exacerbation in July. 2. COVID infection in August. 3. Post hospitalization bacterial pneumonia, now with chronic obstructive pulmonary disease exacerbation leading to intubation. 4. Do not resuscitate status. We will continue supportive care. CRITICAL CARE TIME: 30 minutes. Job ID: [id number]
--- NOTE | 2020-09-27 09:57 | RAD ---
FRONTAL RADIOGRAPH CHEST: D ATE: 09/27/2020. COMPARISON: 09/26/2020. HISTORY: Intubated patient. FINDINGS: Endotracheal tube and nasogastric tube. Right costophrenic angle is not imaged. NO pneumothorax is seen. Persistent airspace disease in the right base with dense consolidative change in the region of the superior segment right lower lobe. There is blunting of the left costophrenic angle which may s ignify small volume left pleural effusion. There is hazy increased density in the medial left base, nonspecific and stable. IMPRESSION: Stable pulmonary parenchymal opacities, right greater than left. Stable endotracheal tube and nasoga stric tube. POS: [facility]
[2020-09-27] MEDS ORDERED: Polyethylene Glycol 3350 17 GM Packet PER TUBE PRN (10:40)
[2020-09-27 15:14] LABS: Anion Gap 15 mmol/L (10-20); BUN (Urea Nitrogen) 45 mg/dL (9.8-20.1); Calc. Creatinine Clearance 77 mL/min (70-130); Calcium 8.8 mg/dL (7.8-10.44); Carbon Dioxide 22 mmol/L (22-29); Chloride 104 mmol/L (98-107); Glucose 513 mg/dL (70-105); Potassium 5.2 mmol/L (3.5-5.1); Sodium 136 mmol/L (136-145)
--- NOTE | 2020-09-27 17:08 | PDOC.HOSPP ---
- Subjective Encounter Date: 09/27/20 Subjective: Sedated/intubated. Patient seen and examined at bedside. At time of my exam patient is intubated/sedated. EHR reviewed. - Objective Vital Signs & Weight: Vital Signs (12 hours) Temp Pulse Resp Pulse Ox 09/27/20 16:00 16 09/27/20 14:00 19 09/27/20 13:13 73 09/27/20 12:00 19 09/27/20 10:17 100 09/27/20 10:00 16 09/27/20 08:00 98.9 F 19 96 09/27/20 07:36 73 09/27/20 06:00 16 Weight Admit Weight 165 lb Weight 160 lb 1.6 oz Most Recent Monitor Data Heart Rate from ECG 75 NIBP 144/81 NIBP BP-Mean 102 Respiration from ECG 28 SpO2 96 I&O: 09/26/20 09/27/20 09/28/20 06:59 06:59 06:59 Intake Total 1560.5 1355 270 Output Total 1086 960 695 Balance 474.5 395 -425 Result Diagrams: 09/27/20 04:40 09/27/20 14:45 Additional Labs: Accuchecks 09/27/20 09/27/20 09/27/20 16:36 10:29 04:42 POC Glucose 407 H 443 H 407 H 09/26/20 17:23 POC Glucose 389 H Hospitalist ROS - Review of Systems ROS unobtainable: due to endotracheal tube - Medication Medications: Active Medications Generic Name Dose Route Start Last Admin Trade Name Freq PRN Reason Stop Dose Admin Albuterol/Ipratropium 3 ml 09/24/20 01:00 09/27/20 13:12 Ipratropium/Albuterol Sulfate 3 Ml Neb NEB 3 ml [id number] SAMUEL Administration Famotidine 20 mg 09/24/20 09:00 09/27/20 09:06 Famotidine/Pf 20 Mg/2ml Vial SLOW IVP 20 mg Q12HR SAMUEL Administration Heparin Sodium (Porcine) 5,000 units 09/24/20 09:00 09/27/20 09:05 Heparin 5,000 Units/Ml Vial SC 5,000 units BID SAMUEL Administration Cefepime HCl 2 gm/ Sodium 100 mls @ 200 mls/hr 09/24/20 12:00 09/27/20 12:41 Chloride IVPB 100 mls 1200,2359 SAMUEL Administration Fentanyl Citrate 2,000 mcg/ 100 mls @ 0 mls/hr 09/24/20 00:15 09/27/20 03:08 Sodium Chloride IV 10/24/20 00:15 100 mls INF SAMUEL Administration Protocol Per Protocol Insulin Glargine 20 units/ 0.2 mls @ 0 mls/hr 09/27/20 09:00 09/27/20 09:05 Miscellaneous Medication SC 0.2 mls QAM SAMUEL Administration Dexmedetomidine HCl 400 mcg/ 100 mls @ 0 mls/hr 09/27/20 08:00 09/27/20 09:06 Sodium Chloride IVPB 100 mls INF SAMUEL Administration Protocol Per Protocol Insulin Human Regular 0 units 09/27/20 16:06 09/27/20 16:43 Insulin Regular 300 Units/3 Ml Vial SC 13 unit .AGGRESSIVE SLIDING PRN Administration Aggressive Correctional Scale Lorazepam 2 mg 09/24/20 00:30 09/26/20 20:11 Lorazepam 2 Mg/Ml Vial SLOW IVP 10/24/20 00:30 2 mg Q1H PRN Administration Breakthrough agitation Methylprednisolone Sodium Succinate 40 mg 09/24/20 12:00 09/27/20 14:09 Methylprednisolone Sod Succ 40 Mg Vial IVP 40 mg Q6HR SAMUEL Administration Propofol 1,000 mg 09/24/20 00:30 09/27/20 09:04 Propofol 1,000 Mg/100 Ml Vial IV 10/24/20 00:30 1,000 mg INF PRN Administration TO ACHIEVE GOAL RASS Protocol Sodium Chloride 10 ml 09/24/20 09:00 09/27/20 10:34 Flush - Normal Saline 10 Ml Syringe IVF 10 ml Q12HR SAMUEL Administration - Exam General Appearance: ill appearing General - other findings: Sedated Respiratory - other findings: Symetrical breath sounds/diminished b/l Gastrointestinal: soft, non-tender Hosp A/P - Plan A/P: Patient with history of COPD and recent episode of COVID19 back on 08-22-20 currently being treated for super imposed necrotizing PNA. # Acute respiratory failure: In setting of recent COVID19 with super imposed necrotizing PNA and COPD exacerbation. Continue with IV ABX, IV steroids and brochodilators. Pulmonary critical care directing care. Expecting slow weaning due to poor pulmonary reserve. # Right upper lobe PNA: Continue with IV ABX per above plan. # Recent COVID19 infection: No longer requiring isolation. # COPD exacerbation: Continue with IV steroids + IV ABX. Rest of care per above plan. # Hyperglycemia: Adjusted insulin to lantus 20 + 10 and advanced to aggressive ISS. Monitor closely. DISPOSITION: Remains critically ill with guarded prognosis. Continue with treatment in the ICU setting.
[2020-09-27] MEDS ORDERED: Insulin Glargine 10 UNITS in Pre-Filled Syringe 1 EACH SC SCH (21:00)
[2020-09-28] MEDS: methylPREDNISolone Sod Succ 40 MG VIAL IVP SCH ×4 (00:06→17:54)
[2020-09-28] MEDS: Cefepime 2 GM in Sodium Chloride 0.9% 100 ML IVPB SCH ×2 (00:06→12:19)
[2020-09-28] MEDS: Insulin Regular 300 UNITS/3 ML VIAL SC PRN ×5 (05:40→20:08)
[2020-09-28 05:41] LABS: ALT (SGPT) 25 U/L (8-55); AST (SGOT) 23 U/L (5-34); Albumin 2.9 g/dL (3.5-5.0); Alkaline Phosphatase 267 U/L (40-110); Anion Gap 13 mmol/L (10-20); BUN (Urea Nitrogen) 47 mg/dL (9.8-20.1); Bilirubin, Total 0.2 mg/dL (0.2-1.2); Calc. Creatinine Clearance 86 mL/min (70-130); Calcium 9.3 mg/dL (7.8-10.44); Carbon Dioxide 27 mmol/L (22-29); Chloride 102 mmol/L (98-107); Globulin 3.9 g/dL (2.4-3.5); Glucose 457 mg/dL (70-105); Protein, Total 6.8 g/dL (6.0-8.3); Sodium 137 mmol/L (136-145)
[2020-09-28 05:57] LABS: Band 6 % (5-11); Hemoglobin 10.1 g/dL (12.0-16.0); Hypochromia SLIGHT = 6-15 cells (100X) (0-5/hpf); Lymphocytes 7 % (21-51); MDiff Complete? YES; Mean Corpuscular HGB CONC 30.2 g/dL (32.0-36.0); Mean Corpuscular Hemoglobin 27.7 pg (27.0-31.0); Mean Corpuscular Volume 91.7 fL (78.0-98.0); Metamyelocyte 2 % (0-0); Monocytes 5 % (0-10); Neutrophil 80 % (42-75); Nucleated RBC 2 % (0); Platelet Count 283 thou/uL (130-400); Platelet Morphology Comment Appears Adequate; RBC Distribution Width 14.5 % (11.5-14.5); Red Blood Cell (RBC) Count 3.64 mill/uL (4.20-5.40); White Blood Cell (WBC) Count 11.9 thou/uL (4.8-10.8)
--- NOTE | 2020-09-28 09:00 | RAD ---
PORTABLE CHEST 1 VIEW: Date: 09/28/2020 Time: 0600 hours HISTORY: Respiratory failure. FINDINGS: Endotracheal and nasogastric tube positions are unchanged. The heart size is normal. The lungs are we ll expanded with persistent opacities in the right mid and lower lung zones and the left lung base. N o pneumothoraces or large effusions are seen. IMPRESSION: Stable exam. POS: OFF
[2020-09-28] MEDS: Heparin 5,000 UNITS/ML VIAL SC SCH ×2 (09:37→20:12)
[2020-09-28] MEDS: Famotidine/PF 20 mg/2ml Vial SLOW IVP SCH ×2 (09:37→20:12)
[2020-09-28] MEDS: Insulin Glargine 20 UNITS in Pre-Filled Syringe 1 EACH SC SCH ×2 (09:39→20:11)
[2020-09-28] MEDS: fentaNYL Citrate/PF 2,000 MCG in Sodium Chloride 0.9% 60 ML IV SCH (10:30)
[2020-09-28] MEDS: Labetalol HCl 100 MG/20 ML VIAL SLOW IVP PRN ×2 (10:32→14:52)
--- NOTE | 2020-09-28 13:11 | PDOC.HOSPP ---
- Subjective Encounter Date: 09/28/20 Subjective: Seen and examined at bedside this morning. Remains intubated/sedated. Case discussed with RN at bedside. EHR reviewed. Remains critically ill on ventilatory support. - Objective Vital Signs & Weight: Vital Signs (12 hours) Temp Pulse Resp BP Pulse Ox 09/28/20 11:06 76 09/28/20 10:32 136 H 177/119 H 09/28/20 10:00 98.4 F 19 09/28/20 08:00 16 98 09/28/20 07:34 61 16 99 09/28/20 07:00 99.1 F 09/28/20 06:00 18 09/28/20 04:00 98.1 F 17 09/28/20 02:46 68 174/81 H 09/28/20 02:00 17 Weight Admit Weight 165 lb Weight 160 lb 11.472 oz Most Recent Monitor Data Heart Rate from ECG 78 NIBP 144/88 NIBP BP-Mean 106 Respiration from ECG 24 SpO2 98 I&O: 09/27/20 09/28/20 09/29/20 06:59 06:59 06:59 Intake Total 1355 1867.7 50 Output Total 960 1860 370 Balance 395 7.7 -320 Result Diagrams: 09/29/20 03:15 09/29/20 03:15 Additional Labs: Accuchecks 09/28/20 09/28/20 09/27/20 12:19 09:37 21:28 POC Glucose 285 H 367 H 403 H 09/27/20 16:36 POC Glucose 407 H Hospitalist ROS - Review of Systems ROS unobtainable: due to endotracheal tube - Medication Medications: Active Medications Generic Name Dose Route Start Last Admin Trade Name Freq PRN Reason Stop Dose Admin Albuterol/Ipratropium 3 ml 09/24/20 01:00 09/28/20 07:34 Ipratropium/Albuterol Sulfate 3 Ml Neb NEB 3 ml [id number] SAMUEL Administration Famotidine 20 mg 09/24/20 09:00 09/28/20 09:37 Famotidine/Pf 20 Mg/2ml Vial SLOW IVP 20 mg Q12HR SAMUEL Administration Heparin Sodium (Porcine) 5,000 units 09/24/20 09:00 09/28/20 09:37 Heparin 5,000 Units/Ml Vial SC 5,000 units BID SAMUEL Administration Cefepime HCl 2 gm/ Sodium 100 mls @ 200 mls/hr 09/24/20 12:00 09/28/20 12:19 Chloride IVPB 100 mls 1200,2359 SAMUEL Administration Fentanyl Citrate 2,000 mcg/ 100 mls @ 0 mls/hr 09/24/20 00:15 09/28/20 10:30 Sodium Chloride IV 10/24/20 00:15 100 mls INF SAMUEL Administration Protocol Per Protocol Dexmedetomidine HCl 400 mcg/ 100 mls @ 0 mls/hr 09/27/20 08:00 09/28/20 12:20 Sodium Chloride IVPB 100 mls INF SAMUEL Administration Protocol Per Protocol Insulin Glargine 20 units/ 0.2 mls @ 0 mls/hr 09/28/20 09:00 09/28/20 09:39 Miscellaneous Medication SC 0.2 mls BID SAMUEL Administration As Directed Insulin Human Regular 0 units 09/27/20 16:06 09/28/20 12:33 Insulin Regular 300 Units/3 Ml Vial SC 9 unit .AGGRESSIVE SLIDING PRN Administration Aggressive Correctional Scale Labetalol HCl 10 mg 09/27/20 19:40 09/28/20 10:32 Labetalol Hcl 100 Mg/20 Ml Vial SLOW IVP 10 mg Q4H PRN Administration SBP Greater Than 170 Lorazepam 2 mg 09/24/20 00:30 09/26/20 20:11 Lorazepam 2 Mg/Ml Vial SLOW IVP 10/24/20 00:30 2 mg Q1H PRN Administration Breakthrough agitation Methylprednisolone Sodium Succinate 40 mg 09/24/20 12:00 09/28/20 12:24 Methylprednisolone Sod Succ 40 Mg Vial IVP 40 mg Q6HR SAMUEL Administration Morphine Sulfate 2 mg 09/24/20 00:30 09/28/20 10:23 Morphine 2 Mg/Ml Vial SLOW IVP 10/24/20 00:30 2 mg Q1H PRN Administration Breakthrough Pain/Agitation Propofol 1,000 mg 09/24/20 00:30 09/27/20 09:04 Propofol 1,000 Mg/100 Ml Vial IV 10/24/20 00:30 1,000 mg INF PRN Administration TO ACHIEVE GOAL RASS Protocol Sodium Chloride 10 ml 09/24/20 09:00 09/28/20 09:40 Flush - Normal Saline 10 Ml Syringe IVF 10 ml Q12HR SAMUEL Administration - Exam General Appearance: NAD General - other findings: Intubated/sedated Heart: RRR, no murmur, no gallops, no rubs, normal peripheral pulses Respiratory - other findings: Symetrical breath sounds/ diminished Gastrointestinal: soft, non-distended Neurological - other findings: Sedated Hosp A/P - Plan A/P: Patient with history of COPD and recent episode of COVID19 back on 08-22-20 currently being treated for super imposed necrotizing PNA. # Acute respiratory failure: In setting of recent COVID19 with super imposed necrotizing PNA and COPD exacerbation. Continue with IV ABX, IV steroids and brochodilators. Pulmonary critical care directing care. Expecting slow weaning due to poor pulmonary reserve. # Right sided PNA: Tracheal respiratory culture positive for MRSA. Patient currently on Cefepime. Consider restarting Vancomycin if MRSA is a concern. Discussed with RN who has informed pulmonary attending and will investigate. # COPD exacerbation: Continue with IV steroids + IV ABX. Rest of care per above plan. # Recent COVID19 infection: No longer requiring isolation. Current respiratory compromise in setting of COPD and PNA. # Hyperglycemia: Adjusted insulin to lantus 20 + 20 and advanced to aggressive ISS q4hrs PRN. Monitor closely. # Hypertension: Restart Metoprolol and higher dose of 25 mg BID. Continue with Labetalol PRN. # Hyperkalemia: Transient hyperkalemia resolved likely with use of insulin & bronchdialators. Monitor. DISPOSITION: Remains critically ill with guarded prognosis. Continue with treatment in the ICU setting.
[2020-09-28] MEDS: Lorazepam 2 MG/ML VIAL SLOW IVP PRN (13:35)
[2020-09-28] MEDS ORDERED: Sodium Chloride 0.9% 0 ML ONE (13:38)
[2020-09-28] MEDS: Propofol 1,000 MG/100 ML VIAL IV PRN ×2 (14:15→21:22)
[2020-09-28 15:00] LABS: Actual Bicarbonate (HCO3a) 26.2 mEq/L (22-28); CO2 Tension 49.3 mmHg (35.0-45.0); Calcium, Ionized (arterial) 1.34 mmol/L (1.12-1.30); Carboxyhemoglobin (COHb) 0.4 gm% (0.0-3.0); Hemoglobin (Hb) 11.9 g/dL (12.0-16.0); O2 Tension (PaO2), arterial 65.5 mmHg (80.0-100.0); Potassium - ABG Lab 5.03 mmol/L (3.70-5.30); pH, Arterial 7.34 (7.35-7.45)
[2020-09-28 15:02] LABS: Puncture Site RRA
[2020-09-28 15:03] LABS: ALV-art Gradient 229.375 mmHg (0-20)
[2020-09-28] MEDS ORDERED: Metoprolol Tartrate 25 MG TAB PER TUBE SCH ×2 (16:00→21:00)
--- NOTE | 2020-09-28 16:35 | PRG ---
DATE OF SERVICE: 09/28/2020 SUBJECTIVE: Ms. Werner continue to receive ventilatory support with rate of 12, tidal volume 400, PEEP of 6, and FiO2 of 40%. Sputum culture obtained at the time of intubation grew MRSA. Gram stain has shown multiple white cells and gram-positive cocci without significant contaminant appearance. She did receive one dose of vancomycin initially pending those results. PHYSICAL EXAMINATION: VITAL SIGNS: Blood pressure 166/118, heart rate is 109, temperature 99.7, and saturation 96%. GENERAL: She is intubated, mildly sedated. She is not responding to appropriate stimuli. HEENT: Shows no adenopathy. LUNGS: Hyperinflated. I do not hear any wheezes or rales. HEART: Regular rate and rhythm. ABDOMEN: Soft. EXTREMITIES: There is no edema. There is no cords or tenderness. LABORATORY: Sputum culture is as above. White count 11,900, hemoglobin is 10.1 with hematocrit 33.4, and platelet count 283,000. She has 80 segs and 6 bands. Electrolytes include sodium 137, potassium 5.0, chloride 102, CO2 is 27, BUN 47, creatinine 0.8, and glucose is 280 to 450. Liver tests are normal, although alkaline phosphatase is elevated in isolated fashion. Blood gas includes pH 734, CO2 of 49, pO2 of 65, and bicarbonate 26. Chest x-ray today was reviewed by me and demonstrates irregularly shaped area of consolidation in the right mid lung. No defined edges are seen. A definite mass is not seen, although the possibility of underlying mass cannot be excluded. IMPRESSION: 1. Chronic obstructive pulmonary disease exacerbation. 2. Methicillin-resistant Staphylococcus aureus bronchitis. PLAN: We will place back on vancomycin at least temporarily. At this point, she is not really ready for a whole lot of weaning, but we will reassess tomorrow. Critical care, 30 minutes. Job ID: [id number]
[2020-09-28] MEDS: Vancomycin 1 GM in Premix Bag 1 BAG IVPB SCH (16:41)
[2020-09-28] MEDS: Metoprolol Tartrate 25 MG TAB PER TUBE SCH (20:12)
[2020-09-29] MEDS: Insulin Regular 300 UNITS/3 ML VIAL SC PRN ×6 (00:11→21:16)
[2020-09-29] MEDS: Cefepime 2 GM in Sodium Chloride 0.9% 100 ML IVPB SCH ×2 (00:15→12:07)
[2020-09-29] MEDS: methylPREDNISolone Sod Succ 40 MG VIAL IVP SCH ×4 (00:16→17:39)
[2020-09-29] MEDS: fentaNYL Citrate/PF 2,000 MCG in Sodium Chloride 0.9% 60 ML IV SCH ×2 (03:20→22:45)
[2020-09-29 04:42] LABS: Band 19 % (5-11); Hemoglobin 9.2 g/dL (12.0-16.0); Lymphocytes 2 % (21-51); MDiff Complete? YES; Mean Corpuscular HGB CONC 31.8 g/dL (32.0-36.0); Mean Corpuscular Volume 91.4 fL (78.0-98.0); Metamyelocyte 4 % (0-0); Monocytes 1 % (0-10); Myelocyte 2 % (0-0); Neutrophil 72 % (42-75); Nucleated RBC 3 % (0); Platelet Count 299 thou/uL (130-400); Platelet Morphology Comment Appears Adequate; RBC Distribution Width 14.5 % (11.5-14.5); Red Blood Cell (RBC) Count 3.18 mill/uL (4.20-5.40); White Blood Cell (WBC) Count 20.3 thou/uL (4.8-10.8)
[2020-09-29 04:58] LABS: ALT (SGPT) 28 U/L (8-55); AST (SGOT) 18 U/L (5-34); Alkaline Phosphatase 63 U/L (40-110); Anion Gap 17 mmol/L (10-20); BUN (Urea Nitrogen) 49 mg/dL (9.8-20.1); Bilirubin, Total 0.3 mg/dL (0.2-1.2); Calc. Creatinine Clearance 89 mL/min (70-130); Calcium 9.3 mg/dL (7.8-10.44); Carbon Dioxide 27 mmol/L (22-29); Chloride 102 mmol/L (98-107); Globulin 3.4 g/dL (2.4-3.5); Glucose 308 mg/dL (70-105); Potassium 4.9 mmol/L (3.5-5.1); Protein, Total 6.4 g/dL (6.0-8.3); Sodium 141 mmol/L (136-145)
[2020-09-29] MEDS: Vancomycin 1 GM in Premix Bag 1 BAG IVPB SCH ×2 (05:38→16:37)
[2020-09-29] MEDS: Propofol 1,000 MG/100 ML VIAL IV PRN ×3 (05:49→23:11)
--- NOTE | 2020-09-29 08:20 | PDOC.HOSPP ---
- Subjective Encounter Date: 09/29/20 Subjective: Seen and examined at bedside this morning. No acute distress noted. She is lightly sedated but awakens if asked for attention. She was able answer a few questions. Denies any pain. She is noted to have worsening leukocytosis of 20 with bandemia of 19. Chest x-ray does appear to have slightly increased opacity in the right mid-lung zone although official read is that it appears stable. On her abdominal exam she is noted to have what appears to be some stool causing mass effect to ostomy site. Patient denies any pain to the area. Abd x-ray does not appear to show significant stool retention or concerning air pattern. VS stable without compromised hemodynamics. - Objective Vital Signs & Weight: Vital Signs (12 hours) Temp Pulse Resp BP Pulse Ox 09/29/20 06:56 88 13 98 09/29/20 06:00 13 09/29/20 04:00 99.0 F 16 09/29/20 02:26 89 117/68 09/29/20 02:00 14 09/29/20 00:39 87 14 99 09/29/20 00:00 98.5 F 12 09/28/20 22:18 85 147/79 H 09/28/20 22:00 16 Weight Admit Weight 165 lb Weight 162 lb 4.163 oz Most Recent Monitor Data Heart Rate from ECG 94 NIBP 113/78 NIBP BP-Mean 89 Respiration from ECG 13 SpO2 98 I&O: 09/28/20 09/29/20 09/30/20 06:59 06:59 06:59 Intake Total 1867.7 2114.4 Output Total 1860 1755 Balance 7.7 359.4 Result Diagrams: 09/29/20 03:15 09/29/20 03:15 Additional Labs: Accuchecks 09/29/20 09/29/20 09/28/20 03:22 00:03 19:31 POC Glucose 256 H 280 H 278 H 09/28/20 09/28/20 09/28/20 16:06 12:19 09:37 POC Glucose 256 H 285 H 367 H Hospitalist ROS - Review of Systems ROS unobtainable: due to endotracheal tube (ROS limited to light sedation and mechanical ventilation) Gastrointestinal: denies: nausea, abdominal pain - Medication Medications: Active Medications Generic Name Dose Route Start Last Admin Trade Name Freq PRN Reason Stop Dose Admin Albuterol/Ipratropium 3 ml 09/24/20 01:00 09/29/20 06:56 Ipratropium/Albuterol Sulfate 3 Ml Neb NEB 3 ml [id number] SAMUEL Administration Famotidine 20 mg 09/24/20 09:00 09/28/20 20:12 Famotidine/Pf 20 Mg/2ml Vial SLOW IVP 20 mg Q12HR SAMUEL Administration Heparin Sodium (Porcine) 5,000 units 09/24/20 09:00 09/28/20 20:12 Heparin 5,000 Units/Ml Vial SC 5,000 units BID SAMUEL Administration Cefepime HCl 2 gm/ Sodium 100 mls @ 200 mls/hr 09/24/20 12:00 09/29/20 00:15 Chloride IVPB 100 mls 1200,2359 SAMUEL Administration Fentanyl Citrate 2,000 mcg/ 100 mls @ 0 mls/hr 09/24/20 00:15 09/29/20 03:20 Sodium Chloride IV 10/24/20 00:15 100 mls INF SAMUEL Administration Protocol Per Protocol Dexmedetomidine HCl 400 mcg/ 100 mls @ 0 mls/hr 09/27/20 08:00 09/28/20 12:20 Sodium Chloride IVPB 100 mls INF SAMUEL Administration Protocol Per Protocol Vancomycin HCl 1 gm/ Device 200 mls @ 200 mls/hr 09/28/20 17:00 09/29/20 05:38 IVPB 200 mls 0500,1700 SAMUEL Administration Insulin Human Regular 0 units 09/27/20 16:06 09/29/20 03:23 Insulin Regular 300 Units/3 Ml Vial SC 9 unit .AGGRESSIVE SLIDING PRN Administration Aggressive Correctional Scale Labetalol HCl 10 mg 09/27/20 19:40 09/28/20 14:52 Labetalol Hcl 100 Mg/20 Ml Vial SLOW IVP 10 mg Q4H PRN Administration SBP Greater Than 170 Lorazepam 2 mg 09/24/20 00:30 09/28/20 13:35 Lorazepam 2 Mg/Ml Vial SLOW IVP 10/24/20 00:30 2 mg Q1H PRN Administration Breakthrough agitation Methylprednisolone Sodium Succinate 40 mg 09/24/20 12:00 09/29/20 05:38 Methylprednisolone Sod Succ 40 Mg Vial IVP 40 mg Q6HR SAMUEL Administration Metoprolol Tartrate 25 mg 09/28/20 21:00 09/28/20 20:12 Metoprolol Tartrate 25 Mg Tab PER TUBE 25 mg BID SAMUEL Administration Morphine Sulfate 2 mg 09/24/20 00:30 09/28/20 10:23 Morphine 2 Mg/Ml Vial SLOW IVP 10/24/20 00:30 2 mg Q1H PRN Administration Breakthrough Pain/Agitation Propofol 1,000 mg 09/24/20 00:30 09/29/20 05:49 Propofol 1,000 Mg/100 Ml Vial IV 10/24/20 00:30 1,000 mg INF PRN Administration TO ACHIEVE GOAL RASS Protocol Sodium Chloride 10 ml 09/24/20 09:00 09/28/20 20:12 Flush - Normal Saline 10 Ml Syringe IVF 10 ml Q12HR SAMUEL Administration - Exam General Appearance: NAD General - other findings: Lightly sedated Heart: RRR, no murmur, no gallops, no rubs, normal peripheral pulses Gastrointestinal: soft, non-tender, non-distended Gastrointestinal - other findings: Possibly some stool retention at ostomy site Neurological - other findings: Lightly sedated, awakens to deep pressure/pain Hosp A/P - Plan old records reviewed/req, continue antibiotics A/P: Patient with history of COPD and recent episode of COVID19 back on 08-22-20 currently being treated for super imposed PNA. # Acute respiratory failure: In setting of recent COVID19 with super imposed n ecrotizing PNA and COPD exacerbation. Continue with IV ABX, IV steroids and brochodilators. Pulmonary critical care directing care. Expecting slow weaning due to poor pulmonary reserve. # PNA: Tracheal respiratory culture positive for MRSA. chest x-ray per my interpretation appears to show slight increase in size to right middle lobe infiltrate. She does have worsening leukocytosis and bandemia. Vancomycin has been reinitiated. Remains on Cefepime. Will monitor clinical status closely. I am hoping that Vancomycin re-initiation will help with above findings. Will also consider adding Flagyl or switching to Zosyn if leukocytosis or hemodynamics worsen. Culture blood if fever occurs. # COPD exacerbation: Continue with IV steroids + IV ABX. Rest of care per above plan. # Recent COVID19 infection: No longer requiring isolation. Current respiratory compromise in setting of COPD and PNA. # Hyperglycemia: Glucose remains elevated. Adjusted Glargine 25U BID, continu e with aggressive ISS q4hrs. Monitor closely. # Hypertension: Better controlled. Restart Metoprolol and higher dose of 25 mg BID. Continue with Labetalol PRN. # Hyperkalemia: Transient hyperkalemia. Resolved likely with use of insulin & bronchdialators. Monitor. # Constipation: No BM for several days. Started on Miralax on 09-28-20. Ostomy site appears to have to retained stool that could pass soon. Abd x-ray shows no acute pathology or significant stool retention. If no BM occurs in the next 24-48 hrs may need digital examination of ostomy for manual evacuation. DISPOSITION: Remains critically ill with guarded prognosis. Continue with treatment in the ICU setting.
[2020-09-29] MEDS: Insulin Glargine 25 UNITS in Pre-Filled Syringe 1 EACH SC SCH ×2 (08:55→21:15)
[2020-09-29] MEDS: Heparin 5,000 UNITS/ML VIAL SC SCH ×2 (08:55→21:15)
[2020-09-29] MEDS: Famotidine/PF 20 mg/2ml Vial SLOW IVP SCH ×2 (08:56→21:15)
[2020-09-29] MEDS: Metoprolol Tartrate 25 MG TAB PER TUBE SCH ×2 (08:56→21:15)
[2020-09-29] MEDS ORDERED: Lisinopril 2.5 MG TAB PER TUBE SCH (09:00)
--- NOTE | 2020-09-29 09:47 | RAD ---
PORTABLE CHEST 1 VIEW: Date: 09/29/2020 Time: 0447 hours HISTORY: Respiratory failure. FINDINGS/IMPRESSION: No significant interval change is seen since the previous day's exam. POS: OFF
--- NOTE | 2020-09-29 10:58 | RAD ---
SINGLE VIEW ABDOMEN: Date: 09/29/2020 COMPARISON: 07/28/2020. HISTORY: Constipation. Fecal impaction. FINDINGS: Single view of the abdomen shows a nonspecific, nonobstructed bowel gas pattern. A NG tube is seen in the stomach. Degenerative changes are seen in the spine. IMPRESSION: 1. Nonobstructed bowel gas pattern. 2. No significant stool retention in the colon. POS: EAA
--- NOTE | 2020-09-29 12:58 | PRG ---
DATE OF SERVICE: 09/29/2020 SUBJECTIVE: She continues to see ventilatory support with rate of 10, tidal volume 400, PEEP of 6, FiO2 of 40%. There is some increase in abdominal distention, especially in the right lower quadrant. There is no stool in her colostomy. She has been taking feedings. PHYSICAL EXAMINATION: VITAL SIGNS: Blood pressure is 135/75, heart rate is 83, saturation 97%. She is sedated. NECK: She has no cervical adenopathy. LUNGS: Reveal rhonchi. There is no wheezing. ABDOMEN: Morbidly obese, postsurgical. She has colostomy in the left lower quadrant. She has a fairly large hernia associated with this. There is no stool liquid or gas in the colostomy bag. EXTREMITIES: She has 1+ pretibial edema. LABORATORY DATA: White count 20,300 up dramatically from 11,000 yesterday, hemoglobin is 9.2, platelet count 299,000. She has 72 segs and 19 bands. Again, the bands are up dramatically from before. Electrolytes include sodium 141, potassium 4.9, chloride 102, CO2 is 27, BUN 49, creatinine 0.8, glucose ranges from 250 to 350. Liver tests are negative. IMAGING STUDIES: Abdominal x-ray does not show typical obstructive bowel pattern. There is no free air. Chest x-ray is reviewed by me and demonstrates a consolidative pattern in the right mid lung, somewhat unusually shaped and probably involving the superior segment of the right lower lobe from this anatomical distribution. I do not see an obvious mass in the hilum. IMPRESSION: 1. Pneumonia with respiratory failure. 2. Obstipation. 3. Diabetes. PLAN: We will continue with current therapies. There is no evidence of abdominal perforation. Actually not significant obstipation identified on the abdominal x-ray. I am concerned that her leukocytosis and left shift have dramatically worse in the past 24 hours. She is on appropriate broad-spectrum antibiotics including cefepime and vancomycin. Cultures of blood were negative. Her tracheal aspirate, intubation had grown MRSA, but I am not sure if this is true pathogen. We will continue current supportive therapies including ventilator support. She is on antibiotics. Critical care, 30 minutes. Job ID: [id number]
[2020-09-30] MEDS: methylPREDNISolone Sod Succ 40 MG VIAL IVP SCH ×4 (00:26→17:28)
[2020-09-30] MEDS: Cefepime 2 GM in Sodium Chloride 0.9% 100 ML IVPB SCH ×2 (00:26→11:38)
[2020-09-30] MEDS: Insulin Regular 300 UNITS/3 ML VIAL SC PRN ×6 (00:26→21:10)
[2020-09-30 05:02] LABS: Band 9 % (5-11); Hemoglobin 11.3 g/dL (12.0-16.0); Lymphocytes 14 % (21-51); MDiff Complete? YES; Mean Corpuscular HGB CONC 31.8 g/dL (32.0-36.0); Mean Corpuscular Hemoglobin 28.8 pg (27.0-31.0); Mean Corpuscular Volume 90.6 fL (78.0-98.0); Mean Platelet Volume 8.2 fL (7.4-10.4); Monocytes 2 % (0-10); Neutrophil 75 % (42-75); Nucleated RBC 2 % (0); Platelet Count 287 thou/uL (130-400); Platelet Morphology Comment Appears Adequate; RBC Distribution Width 14.7 % (11.5-14.5); RBC Morphology Normal; Red Blood Cell (RBC) Count 3.93 mill/uL (4.20-5.40); White Blood Cell (WBC) Count 24.5 thou/uL (4.8-10.8)
[2020-09-30] MEDS: Vancomycin 1 GM in Premix Bag 1 BAG IVPB SCH ×2 (05:08→05:42)
[2020-09-30 05:12] LABS: Vancomycin, Trough 24.2 ug/mL
[2020-09-30 05:13] LABS: ALT (SGPT) 39 U/L (8-55); AST (SGOT) 28 U/L (5-34); Albumin 3.2 g/dL (3.5-5.0); Alkaline Phosphatase 77 U/L (40-110); Anion Gap 16 mmol/L (10-20); BUN (Urea Nitrogen) 44 mg/dL (9.8-20.1); Bilirubin, Total 0.4 mg/dL (0.2-1.2); Calc. Creatinine Clearance 99 mL/min (70-130); Calcium 9.2 mg/dL (7.8-10.44); Carbon Dioxide 28 mmol/L (22-29); Chloride 98 mmol/L (98-107); Globulin 3.5 g/dL (2.4-3.5); Glucose 222 mg/dL (70-105); Potassium 4.8 mmol/L (3.5-5.1); Protein, Total 6.7 g/dL (6.0-8.3); Sodium 137 mmol/L (136-145)
[2020-09-30] MEDS ORDERED: Vancomycin HCl 750 MG in Sodium Chloride 0.9% 250 ML 250 ML IVPB SCH (06:00)
--- NOTE | 2020-09-30 08:07 | RAD ---
XR Chest 1 View Portable History: Ventilated patient Comparison: Radiograph prior day Findings: Right upper lobe airspace consolidation persists. Relative to September 20, 2020 examination it has increased in size. Remainder the lungs are clear. No pneumothorax. No effusion. Endotracheal tube tip above the constanza 2 cm. Enteric tube tip below diaphragm although out of field o f view. Impression: Continued right upper lobe pneumonia similar to prior day although increased over the pas t 2 weeks.
[2020-09-30] MEDS: Heparin 5,000 UNITS/ML VIAL SC SCH ×2 (08:47→21:09)
[2020-09-30] MEDS: Metoprolol Tartrate 25 MG TAB PER TUBE SCH ×2 (08:48→21:09)
[2020-09-30] MEDS: Famotidine/PF 20 mg/2ml Vial SLOW IVP SCH ×2 (08:48→21:09)
[2020-09-30] MEDS: Insulin Glargine 25 UNITS in Pre-Filled Syringe 1 EACH SC SCH ×2 (09:00→21:08)
--- NOTE | 2020-09-30 09:34 | PDOC.HOSPP ---
- Subjective Encounter Date: 09/30/20 Encounter Time: 11:00 Subjective: no events overnight, remains dependent on the vent - Objective Vital Signs & Weight: Vital Signs (12 hours) Temp Pulse Resp BP Pulse Ox 09/30/20 08:00 100.4 F H 09/30/20 07:58 103 H 154/96 H 09/30/20 06:00 12 09/30/20 04:00 99.3 F 12 09/30/20 02:29 101 H 135/102 H 09/30/20 02:00 11 L 09/30/20 00:19 92 11 L 98 09/30/20 00:00 99.6 F 12 09/29/20 22:08 101 H 148/102 H 09/29/20 22:00 12 Weight Admit Weight 165 lb Weight 160 lb 7.944 oz Most Recent Monitor Data Heart Rate from ECG 101 NIBP 166/98 NIBP BP-Mean 120 Respiration from ECG 15 SpO2 95 I&O: 09/29/20 09/30/20 10/01/20 06:59 06:59 06:59 Intake Total 2114.4 2358.1 Output Total 1755 2195 200 Balance 359.4 163.1 -200 Result Diagrams: 09/30/20 03:45 09/30/20 03:45 Additional Labs: Accuchecks 09/30/20 09/30/20 09/29/20 03:48 00:04 19:48 POC Glucose 210 H 275 H 270 H 09/29/20 09/29/20 09/28/20 15:49 12:00 04:05 POC Glucose 185 H 269 H 388 H Hospitalist ROS - Review of Systems ROS unobtainable: due to endotracheal tube - Medication Medications: Active Medications Generic Name Dose Route Start Last Admin Trade Name Freq PRN Reason Stop Dose Admin Albuterol/Ipratropium 3 ml 09/24/20 01:00 09/30/20 07:57 Ipratropium/Albuterol Sulfate 3 Ml Neb NEB 3 ml [id number] SAMUEL Administration Famotidine 20 mg 09/24/20 09:00 09/30/20 08:48 Famotidine/Pf 20 Mg/2ml Vial SLOW IVP 20 mg Q12HR SAMUEL Administration Heparin Sodium (Porcine) 5,000 units 09/24/20 09:00 09/30/20 08:47 Heparin 5,000 Units/Ml Vial SC 5,000 units BID SAMUEL Administration Cefepime HCl 2 gm/ Sodium 100 mls @ 200 mls/hr 09/24/20 12:00 09/30/20 00:26 Chloride IVPB 100 mls 1200,2359 SAMUEL Administration Fentanyl Citrate 2,000 mcg/ 100 mls @ 0 mls/hr 09/24/20 00:15 09/29/20 22:45 Sodium Chloride IV 10/24/20 00:15 100 mls INF SAMUEL Administration Protocol Per Protocol Dexmedetomidine HCl 400 mcg/ 100 mls @ 0 mls/hr 09/27/20 08:00 09/28/20 12:20 Sodium Chloride IVPB 100 mls INF SAMUEL Administration Protocol Per Protocol Insulin Glargine 25 units/ 0.25 mls @ 0 mls/hr 09/29/20 09:00 09/30/20 09:00 Miscellaneous Medication SC 0.25 mls BID SAMUEL Administration As Directed Vancomycin HCl 750 mg/ Sodium 250 mls @ 250 mls/hr 09/30/20 06:00 09/30/20 05:40 Chloride IVPB 250 mls 0600,1800 SAMUEL Administration Insulin Human Regular 0 units 09/27/20 16:06 09/30/20 08:46 Insulin Regular 300 Units/3 Ml Vial SC 6 unit .AGGRESSIVE SLIDING PRN Administration Aggressive Correctional Scale Labetalol HCl 10 mg 09/27/20 19:40 09/28/20 14:52 Labetalol Hcl 100 Mg/20 Ml Vial SLOW IVP 10 mg Q4H PRN Administration SBP Greater Than 170 Lorazepam 2 mg 09/24/20 00:30 09/28/20 13:35 Lorazepam 2 Mg/Ml Vial SLOW IVP 10/24/20 00:30 2 mg Q1H PRN Administration Breakthrough agitation Methylprednisolone Sodium Succinate 40 mg 09/24/20 12:00 09/30/20 05:08 Methylprednisolone Sod Succ 40 Mg Vial IVP 40 mg Q6HR SAMUEL Administration Metoprolol Tartrate 25 mg 09/28/20 21:00 09/30/20 08:48 Metoprolol Tartrate 25 Mg Tab PER TUBE 25 mg BID SAMUEL Administration Morphine Sulfate 2 mg 09/24/20 00:30 09/28/20 10:23 Morphine 2 Mg/Ml Vial SLOW IVP 10/24/20 00:30 2 mg Q1H PRN Administration Breakthrough Pain/Agitation Propofol 1,000 mg 09/24/20 00:30 09/29/20 23:11 Propofol 1,000 Mg/100 Ml Vial IV 10/24/20 00:30 1,000 mg INF PRN Administration TO ACHIEVE GOAL RASS Protocol Sodium Chloride 10 ml 09/24/20 09:00 09/30/20 08:49 Flush - Normal Saline 10 Ml Syringe IVF 10 ml Q12HR SAMUEL Administration - Exam General - other findings: sedated on the vent Heart: RRR, no murmur, no gallops, no rubs Respiratory: CTAB, no wheezes, no rales, no ronchi Gastrointestinal: soft, non-tender, normal bowel sounds Gastrointestinal - other findings: mod distension pool around ostomy, no output in the bag Psychiatric - other findings: sedated on the vent Hosp A/P - Plan A/P: Patient with history of COPD and recent episode of COVID19 back on 08-22-20 currently being treated for super imposed PNA. # Acute respiratory failure: In setting of recent COVID19 with super imposed necrotizing PNA and COPD exacerbation. Continue with IV ABX, IV steroids and brochodilators. Pulmonary critical care directing care. Expecting slow weaning due to poor pulmonary reserve. # PNA: Tracheal respiratory culture positive for MRSA. chest x-ray per my interpretation appears to show slight increase in size to right middle lobe infiltrate. She does have significantly worsening leukocytosis and bandemia. Remains on Cefepime. Dr. Hale adding Zyvox and Vanc d/c'd. # COPD exacerbation: Continue with IV steroids + IV ABX. Rest of care per above plan. # Recent COVID19 infection: No longer requiring isolation. Current resp iratory compromise in setting of COPD and PNA. # Hyperglycemia: Glucose remains elevated. Adjusted Glargine 25U BID with improved control, continue with aggressive ISS q4hrs. Monitor closely. # Hypertension: Better controlled. Restart Metoprolol and higher dose of 25 mg BID. Continue with Labetalol PRN. # Hyperkalemia: Transient hyperkalemia. Resolved likely with use of insulin & bronchdialators. Monitor. # Constipation: No BM for several days. Started on Miralax on 09-28-20. Ostomy site appears to have to retained stool that could pass soon. Abd x-ray shows no acute pathology or significant stool retention. DISPOSITION: Remains critically ill with guarded prognosis. Continue with treatment in the ICU setting.
[2020-09-30] MEDS: Propofol 1,000 MG/100 ML VIAL IV PRN (09:42)
--- NOTE | 2020-09-30 10:22 | PRG ---
DATE OF SERVICE: SUBJECTIVE: Batsheva Werner remains in the ICU, day #6 on the vent. She gets agitated. She has made a DNR. X-ray showed right-sided pneumonia. OBJECTIVE: VITAL SIGNS: Temperature 100.4, blood pressure 166/98, respiratory rate 18. CHEST: No wheezing, no crackles. CARDIAC: Normal S1, S2. ABDOMEN: No masses. LABORATORY DATA: White count 25,000, H and H 11 and 35. Lytes are normal. IMPRESSION: Respiratory failure, methicillin-resistant Staphylococcus on the trach. PLAN: I am going to start her on some Zyvox. Otherwise, continue Maxipime, steroids, neb treatment, low-dose risperidone. One-half hour of critical time. Job ID: [id number]
[2020-09-30] MEDS ORDERED: Acetaminophen 650 MG/20.3 ML UDCUP PER TUBE PRN (16:41)
[2020-09-30] MEDS: fentaNYL Citrate/PF 2,000 MCG in Sodium Chloride 0.9% 60 ML IV SCH (17:11)
[2020-09-30] MEDS: Linezolid 600 MG in Premix Bag 1 BAG IVPB SCH (21:09)
[2020-09-30] MEDS: risperiDONE 0.25 MG TAB PO SCH (21:09)
[2020-10-01] MEDS: Propofol 1,000 MG/100 ML VIAL IV PRN ×2 (00:30→14:34)
[2020-10-01] MEDS: methylPREDNISolone Sod Succ 40 MG VIAL IVP SCH ×4 (01:20→19:15)
[2020-10-01] MEDS: Cefepime 2 GM in Sodium Chloride 0.9% 100 ML IVPB SCH ×2 (01:20→13:02)
[2020-10-01] MEDS: Insulin Regular 300 UNITS/3 ML VIAL SC PRN ×5 (01:27→21:37)
[2020-10-01 04:16] LABS: Band 9 % (5-11); Hemoglobin 11.2 g/dL (12.0-16.0); Lymphocytes 6 % (21-51); MDiff Complete? YES; Mean Corpuscular HGB CONC 32.3 g/dL (32.0-36.0); Mean Corpuscular Hemoglobin 28.9 pg (27.0-31.0); Mean Corpuscular Volume 89.3 fL (78.0-98.0); Mean Platelet Volume 8.3 fL (7.4-10.4); Metamyelocyte 5 % (0-0); Monocytes 4 % (0-10); Myelocyte 2 % (0-0); Neutrophil 74 % (42-75); Nucleated RBC 1 % (0); Platelet Count 239 thou/uL (130-400); Platelet Morphology Comment Appears Adequate; RBC Distribution Width 14.7 % (11.5-14.5); Red Blood Cell (RBC) Count 3.89 mill/uL (4.20-5.40); White Blood Cell (WBC) Count 20.4 thou/uL (4.8-10.8)
[2020-10-01 04:23] LABS: ALT (SGPT) 48 U/L (8-55); AST (SGOT) 22 U/L (5-34); Albumin 2.9 g/dL (3.5-5.0); Alkaline Phosphatase 76 U/L (40-110); Anion Gap 11 mmol/L (10-20); BUN (Urea Nitrogen) 35 mg/dL (9.8-20.1); Bilirubin, Total 0.4 mg/dL (0.2-1.2); Calc. Creatinine Clearance 112 mL/min (70-130); Calcium 8.6 mg/dL (7.8-10.44); Carbon Dioxide 33 mmol/L (22-29); Chloride 97 mmol/L (98-107); Globulin 3.3 g/dL (2.4-3.5); Glucose 165 mg/dL (70-105); Potassium 4.2 mmol/L (3.5-5.1); Protein, Total 6.2 g/dL (6.0-8.3); Sodium 137 mmol/L (136-145)
--- NOTE | 2020-10-01 08:21 | PDOC.HOSPP ---
- Subjective Encounter Date: 10/01/20 Encounter Time: 11:00 Subjective: Patient spiked a fever of 102 yesterday. Blood cultures were drawn. Already on broad spectrum antibiotics. Did have a large soft bowel movement in ostomy bag last night. - Objective Vital Signs & Weight: Vital Signs (12 hours) Temp Pulse Resp BP Pulse Ox 10/01/20 07:33 113 H 183/93 H 10/01/20 07:32 109 H 13 95 10/01/20 06:00 14 10/01/20 04:00 15 10/01/20 02:22 89 161/96 H 10/01/20 02:00 12 10/01/20 00:23 83 9 L 97 10/01/20 00:00 99.4 F 11 L 09/30/20 22:14 79 134/72 09/30/20 22:00 11 L Weight Admit Weight 165 lb Weight 156 lb 11.979 oz Most Recent Monitor Data Heart Rate from ECG 99 NIBP 157/90 NIBP BP-Mean 112 Respiration from ECG 16 SpO2 95 I&O: 09/30/20 10/01/20 10/02/20 06:59 06:59 06:59 Intake Total 2358.1 1913.4 Output Total 2195 2095 Balance 163.1 -181.6 Result Diagrams: 10/01/20 03:42 10/01/20 03:42 Additional Labs: Accuchecks 10/01/20 10/01/20 09/30/20 03:43 00:39 20:59 POC Glucose 151 H 246 H 263 H 09/30/20 09/30/20 09/30/20 16:10 11:49 08:20 POC Glucose 216 H 205 H 222 H 09/30/20 09/29/20 09/28/20 03:48 08:45 04:05 POC Glucose 210 H 286 H 388 H Hospitalist ROS - Review of Systems ROS unobtainable: due to endotracheal tube - Medication Medications: Active Medications Generic Name Dose Route Start Last Admin Trade Name Freq PRN Reason Stop Dose Admin Acetaminophen 650 mg 09/30/20 16:41 09/30/20 17:34 Acetaminophen 650 Mg/20.3 Ml Udcup PER TUBE 650 mg Q6H PRN Administration Fever > 101 or Mild Pain Albuterol/Ipratropium 3 ml 09/24/20 01:00 10/01/20 07:32 Ipratropium/Albuterol Sulfate 3 Ml Neb NEB 3 ml [id number] SAMUEL Administration Famotidine 20 mg 09/24/20 09:00 09/30/20 21:09 Famotidine/Pf 20 Mg/2ml Vial SLOW IVP 20 mg Q12HR SAMUEL Administration Heparin Sodium (Porcine) 5,000 units 09/24/20 09:00 09/30/20 21:09 Heparin 5,000 Units/Ml Vial SC 5,000 units BID SAMUEL Administration Cefepime HCl 2 gm/ Sodium 100 mls @ 200 mls/hr 09/24/20 12:00 10/01/20 01:20 Chloride IVPB 100 mls 1200,2359 SAMUEL Administration Fentanyl Citrate 2,000 mcg/ 100 mls @ 0 mls/hr 09/24/20 00:15 09/30/20 17:11 Sodium Chloride IV 10/24/20 00:15 100 mls INF SAMUEL Administration Protocol Per Protocol Dexmedetomidine HCl 400 mcg/ 100 mls @ 0 mls/hr 09/27/20 08:00 09/28/20 12:20 Sodium Chloride IVPB 100 mls INF SAMUEL Administration Protocol Per Protocol Insulin Glargine 25 units/ 0.25 mls @ 0 mls/hr 09/29/20 09:00 09/30/20 21:08 Miscellaneous Medication SC 0.25 mls BID SAMUEL Administration As Directed Linezolid 600 mg/ Device 300 mls @ 150 mls/hr 09/30/20 21:00 09/30/20 21:09 IVPB 10/07/20 21:01 300 mls Q12HR SAMUEL Administration Insulin Human Regular 0 units 09/27/20 16:06 10/01/20 01:27 Insulin Regular 300 Units/3 Ml Vial SC 6 unit .AGGRESSIVE SLIDING PRN Administration Aggressive Correctional Scale Labetalol HCl 10 mg 09/27/20 19:40 09/28/20 14:52 Labetalol Hcl 100 Mg/20 Ml Vial SLOW IVP 10 mg Q4H PRN Administration SBP Greater Than 170 Lorazepam 2 mg 09/24/20 00:30 09/28/20 13:35 Lorazepam 2 Mg/Ml Vial SLOW IVP 10/24/20 00:30 2 mg Q1H PRN Administration Breakthrough agitation Methylprednisolone Sodium Succinate 40 mg 09/24/20 12:00 10/01/20 07:44 Methylprednisolone Sod Succ 40 Mg Vial IVP 40 mg Q6HR SAMUEL Administration Metoprolol Tartrate 25 mg 09/28/20 21:00 09/30/20 21:09 Metoprolol Tartrate 25 Mg Tab PER TUBE 25 mg BID SAMUEL Administration Morphine Sulfate 2 mg 09/24/20 00:30 09/28/20 10:23 Morphine 2 Mg/Ml Vial SLOW IVP 10/24/20 00:30 2 mg Q1H PRN Administration Breakthrough Pain/Agitation Polyethylene Glycol 17 gm 09/27/20 10:40 09/30/20 09:44 Polyethylene Glycol 3350 17 Gm Packet PER TUBE 10/07/20 10:41 17 gm DAILY PRN Administration Constipation Propofol 1,000 mg 09/24/20 00:30 10/01/20 00:30 Propofol 1,000 Mg/100 Ml Vial IV 10/24/20 00:30 1,000 mg INF PRN Administration TO ACHIEVE GOAL RASS Protocol Risperidone 0.25 mg 09/30/20 21:00 09/30/20 21:09 Risperidone 0.25 Mg Tab PO 0.25 mg BID SAMUEL Administration Sodium Chloride 10 ml 09/24/20 09:00 09/30/20 21:11 Flush - Normal Saline 10 Ml Syringe IVF 10 ml Q12HR SAMUEL Administration - Exam General - other findings: sedated on the vent ENT: moist mucosa ENT - other findings: ET tube in place Heart: RRR, no murmur, no gallops, no rubs Respiratory: CTAB, no wheezes, no rales, no ronchi Gastrointestinal: soft, non-tender, non-distended, normal bowel sounds Psychiatric - other findings: sedated on the vent Hosp A/P - Plan A/P: Patient with history of COPD and recent episode of COVID19 back on 08-22-20 currently being treated for super imposed PNA. # Acute respiratory failure: In setting of recent COVID19 with super imposed necrotizing PNA and COPD exacerbation. Continue with IV ABX, IV steroids and brochodilators. Pulmonary critical care directing care. Expecting slow weaning due to poor pulmonary reserve. # PNA: Tracheal respiratory culture positive for MRSA. chest x-ray per my interpretation appears to show slight increase in size to right middle lobe infiltrate. She does have significantly worsening leukocytosis and bandemia along with fever to 102 on 09/30/2020. Remains on Cefepime and Dr. Hale added Zyvox. # COPD exacerbation: Continue with IV steroids + IV ABX. Rest of care per above plan. # Recent COVID19 infection: No longer requiring isolation. Current respiratory compromise in setting of COPD and PNA. # Hyperglycemia: Glucose remains elevated. Adjusted Glargine 25U BID with improved control, continue with aggressive ISS q4hrs. Monitor closely. # Hypertension: Better controlled. Restarted Metoprolol at higher dose of 25 mg BID, will titrate up today. Continue with Labetalol PRN. # Hyperkalemia: Transient hyperkalemia. Resolved likely with use of insulin & bronchdialators. Monitor. # Constipation: No BM for several days. Started on Miralax on 09-28-20. Ostomy site appears to have to retained stool that could pass soon. Abd x-ray shows no acute pathology or significant stool retention. DISPOSITION: Remains critically ill with guarded prognosis. Continue with treatment in the ICU setting.
--- NOTE | 2020-10-01 08:27 | RAD ---
PORTABLE CHEST: INDICATION: CCU followup. ET tube on ventilator. COMPARISON: 09/30/2020. FINDINGS: ET tube and NG tube unchanged. Hazy infiltrate in the right mid and lower lung again noted. Left benjy ng remains clear with mild atelectasis in the left lung base which is stable. IMPRESSION: Stable chest finding. POS: AGW
[2020-10-01] MEDS: Linezolid 600 MG in Premix Bag 1 BAG IVPB SCH ×2 (09:38→21:38)
[2020-10-01] MEDS: Insulin Glargine 25 UNITS in Pre-Filled Syringe 1 EACH SC SCH ×2 (09:40→21:37)
[2020-10-01] MEDS: Heparin 5,000 UNITS/ML VIAL SC SCH ×2 (09:41→21:37)
[2020-10-01] MEDS: Metoprolol Tartrate 50 MG TAB PER TUBE SCH ×2 (09:41→21:36)
[2020-10-01] MEDS: risperiDONE 0.25 MG TAB PO SCH ×2 (09:41→21:52)
[2020-10-01] MEDS: Famotidine/PF 20 mg/2ml Vial SLOW IVP SCH ×2 (09:42→21:37)
--- NOTE | 2020-10-01 10:35 | PRG ---
DATE OF SERVICE: 10/01/2020 SUBJECTIVE: Batsheva Werner remains in the ICU, still sedated. OBJECTIVE: VITAL SIGNS: Temperature is 99, pulse 116, blood pressure 192/89, and saturations 93% to 94%. GENERAL: She is responsive, but profoundly weak. CHEST: No rhonchi. Crackles, right greater than left. CARDIAC: Normal S1 and S2. No gallops. ABDOMEN: Soft. LABORATORY DATA: White count 20,000. X-ray, right-sided pneumonia. ASSESSMENT: Presumably Staphylococcus pneumonia, chronic obstructive pulmonary disease, respiratory failure, do not resuscitate, severe deconditioning. PLAN: Minimize sedation as much as possible. Continue antibiotics, supportive care, and PT. Still not weanable at this stage. One-half hour of critical care time. Job ID: [id number]
[2020-10-01] MEDS: fentaNYL Citrate/PF 2,000 MCG in Sodium Chloride 0.9% 60 ML IV SCH (11:29)
[2020-10-01] MEDS: Labetalol HCl 100 MG/20 ML VIAL SLOW IVP PRN (16:27)
[2020-10-02] MEDS: Insulin Regular 300 UNITS/3 ML VIAL SC PRN ×4 (00:07→17:41)
[2020-10-02] MEDS: Cefepime 2 GM in Sodium Chloride 0.9% 100 ML IVPB SCH ×2 (00:09→12:30)
[2020-10-02] MEDS: methylPREDNISolone Sod Succ 40 MG VIAL IVP SCH ×3 (00:09→20:29)
[2020-10-02] MEDS: fentaNYL Citrate/PF 2,000 MCG in Sodium Chloride 0.9% 60 ML IV SCH (05:38)
[2020-10-02 06:46] LABS: ALT (SGPT) 35 U/L (8-55); AST (SGOT) 20 U/L (5-34); Albumin 2.7 g/dL (3.5-5.0); Alkaline Phosphatase 69 U/L (40-110); Anion Gap 13 mmol/L (10-20); BUN (Urea Nitrogen) 31 mg/dL (9.8-20.1); Bilirubin, Total 0.3 mg/dL (0.2-1.2); Calc. Creatinine Clearance 112 mL/min (70-130); Calcium 8.5 mg/dL (7.8-10.44); Carbon Dioxide 30 mmol/L (22-29); Chloride 97 mmol/L (98-107); Globulin 2.9 g/dL (2.4-3.5); Glucose 182 mg/dL (70-105); Potassium 4.1 mmol/L (3.5-5.1); Protein, Total 5.6 g/dL (6.0-8.3); Sodium 136 mmol/L (136-145)
[2020-10-02 06:52] LABS: Hemoglobin 10.4 g/dL (12.0-16.0); Mean Corpuscular HGB CONC 32.4 g/dL (32.0-36.0); Mean Corpuscular Hemoglobin 29.1 pg (27.0-31.0); Mean Corpuscular Volume 89.7 fL (78.0-98.0); Mean Platelet Volume 8.7 fL (7.4-10.4); Platelet Count 194 thou/uL (130-400); RBC Distribution Width 14.9 % (11.5-14.5); Red Blood Cell (RBC) Count 3.59 mill/uL (4.20-5.40); White Blood Cell (WBC) Count 15.1 thou/uL (4.8-10.8)
[2020-10-02 06:53] LABS: Band 1 % (5-11); Hypochromia SLIGHT = 6-15 cells (100X) (0-5/hpf); Lymphocytes 13 % (21-51); MDiff Complete? YES; Monocytes 1 % (0-10); Neutrophil 85 % (42-75); Platelet Morphology Comment Appears Adequate
[2020-10-02] MEDS: Heparin 5,000 UNITS/ML VIAL SC SCH ×2 (08:25→20:28)
[2020-10-02] MEDS: Famotidine/PF 20 mg/2ml Vial SLOW IVP SCH ×2 (08:25→20:28)
[2020-10-02] MEDS: Metoprolol Tartrate 50 MG TAB PER TUBE SCH ×2 (08:25→20:29)
[2020-10-02] MEDS: risperiDONE 0.25 MG TAB PO SCH ×2 (08:25→20:29)
[2020-10-02] MEDS: Insulin Glargine 25 UNITS in Pre-Filled Syringe 1 EACH SC SCH ×2 (08:33→20:28)
[2020-10-02] MEDS: Linezolid 600 MG in Premix Bag 1 BAG IVPB SCH ×2 (08:33→20:29)
--- NOTE | 2020-10-02 09:41 | PRG ---
DATE OF SERVICE: 10/02/2020 SUBJECTIVE: Batsheva Werner remains in the ICU intubated. She is still on low-dose fentanyl, which I am going to discontinue this morning. OBJECTIVE: VITAL SIGNS: Temperature 100, pulse 107, blood pressure 148/84, rate of 6, saturations 100%. I's and O's are good. CHEST: No wheezing. No crackles. CARDIAC: Normal S1 and S2. No gallops. ABDOMEN: No masses. IMPRESSION: Respiratory failure, pneumonia, and severe deconditioning. PLAN: Continue Maxipime. Continue Zyvox. Continue high-dose steroids. Vent is being adjusted. PT is being initiated. Hopefully, we can try and get her off the vent soon. She is day #8 in the ICU. One-half hour of critical care time. Job ID: [id number]
--- NOTE | 2020-10-02 11:10 | PDOC.HOSPP ---
- Subjective Encounter Date: 10/02/20 Encounter Time: 08:00 Subjective: Patient is intubated, patient seen and examined bedside - Objective Vital Signs & Weight: Vital Signs (12 hours) Temp Pulse Resp BP Pulse Ox 10/02/20 10:39 94 10/02/20 08:00 100.0 F H 14 10/02/20 07:26 107 H 143/84 H 10/02/20 07:25 110 H 16 93 L 10/02/20 06:00 14 10/02/20 04:00 13 10/02/20 03:00 98.6 F 10/02/20 02:22 73 127/64 10/02/20 02:00 13 10/02/20 00:32 82 10 L 98 10/02/20 00:00 99.2 F 13 Weight Admit Weight 165 lb Weight 160 lb 7.944 oz Most Recent Monitor Data Heart Rate from ECG 111 NIBP 159/85 NIBP BP-Mean 109 Respiration from ECG 13 SpO2 96 I&O: 10/01/20 10/02/20 10/03/20 06:59 06:59 06:59 Intake Total 1913.4 2094.9 400 Output Total 2094 2049 215 Balance -181.6 44.9 185 Result Diagrams: 10/02/20 04:10 10/02/20 04:10 Additional Labs: Accuchecks 10/02/20 10/02/20 10/01/20 08:50 04:10 23:58 POC Glucose 164 H 177 H 289 H 10/01/20 10/01/20 10/01/20 19:58 16:41 12:48 POC Glucose 209 H 273 H 278 H Radiology Reviewed by me: Yes EKG Reviewed by me: Yes Hospitalist ROS - Review of Systems ROS unobtainable: due to endotracheal tube - Medication Medications: Active Medications Generic Name Dose Route Start Last Admin Trade Name Freq PRN Reason Stop Dose Admin Acetaminophen 650 mg 09/30/20 16:41 09/30/20 17:34 Acetaminophen 650 Mg/20.3 Ml Udcup PER TUBE 650 mg Q6H PRN Administration Fever > 101 or Mild Pain Albuterol/Ipratropium 3 ml 09/24/20 01:00 10/02/20 07:25 Ipratropium/Albuterol Sulfate 3 Ml Neb NEB 3 ml [id number] SAMUEL Administration Famotidine 20 mg 09/24/20 09:00 10/02/20 08:25 Famotidine/Pf 20 Mg/2ml Vial SLOW IVP 20 mg Q12HR SAMUEL Administration Heparin Sodium (Porcine) 5,000 units 09/24/20 09:00 10/02/20 08:25 Heparin 5,000 Units/Ml Vial SC 5,000 units BID SAMUEL Administration Cefepime HCl 2 gm/ Sodium 100 mls @ 200 mls/hr 09/24/20 12:00 10/02/20 00:09 Chloride IVPB 10/04/20 00:28 100 mls 1200,2359 SAMUEL Administration Fentanyl Citrate 2,000 mcg/ 100 mls @ 0 mls/hr 09/24/20 00:15 10/02/20 05:38 Sodium Chloride IV 10/24/20 00:15 100 mls INF SAMUEL Administration Protocol Per Protocol Dexmedetomidine HCl 400 mcg/ 100 mls @ 0 mls/hr 09/27/20 08:00 09/28/20 12:20 Sodium Chloride IVPB 100 mls INF SAMUEL Administration Protocol Per Protocol Insulin Glargine 25 units/ 0.25 mls @ 0 mls/hr 09/29/20 09:00 10/02/20 08:33 Miscellaneous Medication SC 0.25 mls BID SAMUEL Administration As Directed Linezolid 600 mg/ Device 300 mls @ 150 mls/hr 09/30/20 21:00 10/02/20 08:33 IVPB 10/07/20 21:01 300 mls Q12HR SAMUEL Administration Insulin Human Regular 0 units 09/27/20 16:06 10/02/20 09:06 Insulin Regular 300 Units/3 Ml Vial SC 3 unit .AGGRESSIVE SLIDING PRN Administration Aggressive Correctional Scale Labetalol HCl 10 mg 09/27/20 19:40 10/01/20 16:27 Labetalol Hcl 100 Mg/20 Ml Vial SLOW IVP 10 mg Q4H PRN Administration SBP Greater Than 170 Metoprolol Tartrate 50 mg 10/01/20 09:00 10/02/20 08:25 Metoprolol Tartrate 50 Mg Tab PER TUBE 50 mg BID SAMUEL Administration Morphine Sulfate 2 mg 09/24/20 00:30 09/28/20 10:23 Morphine 2 Mg/Ml Vial SLOW IVP 10/24/20 00:30 2 mg Q1H PRN Administration Breakthrough Pain/Agitation Polyethylene Glycol 17 gm 09/27/20 10:40 09/30/20 09:44 Polyethylene Glycol 3350 17 Gm Packet PER TUBE 10/07/20 10:41 17 gm DAILY PRN Administration Constipation Propofol 1,000 mg 09/24/20 00:30 10/01/20 14:34 Propofol 1,000 Mg/100 Ml Vial IV 10/24/20 00:30 1,000 mg INF PRN Administration TO ACHIEVE GOAL RASS Protocol Risperidone 0.25 mg 09/30/20 21:00 10/02/20 08:25 Risperidone 0.25 Mg Tab PO 0.25 mg BID SAMUEL Administration Sodium Chloride 10 ml 09/24/20 09:00 10/02/20 09:06 Flush - Normal Saline 10 Ml Syringe IVF Not Given Q12HR SAMUEL - Exam General Appearance: NAD, ill appearing Eye: PERRL ENT: normocephalic atraumatic, no oropharyngeal lesions Neck: no JVD Heart: RRR, no murmur, no gallops Respiratory: no wheezes, no rales, no ronchi Gastrointestinal: soft, normal bowel sounds Extremities: 1+ LE edema Hosp A/P (1) Acute on chronic respiratory failure with hypoxemia Code(s): J96.21 - ACUTE AND CHRONIC RESPIRATORY FAILURE WITH HYPOXIA Status: Acute (2) Pneumonia involving right lung Code(s): J18.9 - PNEUMONIA, UNSPECIFIED ORGANISM Status: Acute (3) COPD exacerbation Code(s): J44.1 - CHRONIC OBSTRUCTIVE PULMONARY DISEASE W (ACUTE) EXACERBATION Status: Acute (4) Anemia, normocytic normochromic Code(s): D64.9 - ANEMIA, UNSPECIFIED Status: Chronic (5) Diabetes mellitus, type II Status: Chronic Qualifiers: Diabetes mellitus senior living insulin use: without intermodal owner operator truck driver use Diabetes mellitus complication status: without complication Qualified Code(s): E11.9 - Type 2 diabetes mellitus without complications (6) Hypertension Code(s): I10 - ESSENTIAL (PRIMARY) HYPERTENSION Status: Chronic Qualifiers: Hypertension type: essential hypertension Qualified Code(s): I10 - Essential (primary) hypertension - Plan old records reviewed/req, continue antibiotics, respiratory therapy Continue vent management as per pulmonology, We will try to reduce vent setting and wean her off as tolerated, continue cefepime and Zyvox Continue Solu-Medrol Patient's long-term prognosis is poor,
[2020-10-03] MEDS: Cefepime 2 GM in Sodium Chloride 0.9% 100 ML IVPB SCH
[2020-10-03 05:14] LABS: Band 19 % (5-11); Hemoglobin 11.4 g/dL (12.0-16.0); Lymphocytes 8 % (21-51); MDiff Complete? YES; Mean Corpuscular HGB CONC 32.4 g/dL (32.0-36.0); Mean Corpuscular Hemoglobin 29.5 pg (27.0-31.0); Mean Platelet Volume 8.6 fL (7.4-10.4); Monocytes 4 % (0-10); Myelocyte 1 % (0-0); Neutrophil 68 % (42-75); Platelet Count 193 thou/uL (130-400); Platelet Morphology Comment Appears Adequate; RBC Distribution Width 15.5 % (11.5-14.5); Red Blood Cell (RBC) Count 3.85 mill/uL (4.20-5.40); White Blood Cell (WBC) Count 13.9 thou/uL (4.8-10.8)
[2020-10-03 05:28] LABS: ALT (SGPT) 41 U/L (8-55); AST (SGOT) 19 U/L (5-34); Albumin 2.9 g/dL (3.5-5.0); Alkaline Phosphatase 77 U/L (40-110); Anion Gap 11 mmol/L (10-20); BUN (Urea Nitrogen) 33 mg/dL (9.8-20.1); Bilirubin, Total 0.4 mg/dL (0.2-1.2); Calc. Creatinine Clearance 0 mL/min (70-130); Calcium 8.7 mg/dL (7.8-10.44); Carbon Dioxide 30 mmol/L (22-29); Chloride 96 mmol/L (98-107); Globulin 3.1 g/dL (2.4-3.5); Glucose 283 mg/dL (70-105); Potassium 3.6 mmol/L (3.5-5.1); Sodium 133 mmol/L (136-145)
[2020-10-03] MEDS ORDERED: DC Sedation Protocol FS ONE (09:26)
[2020-10-03] MEDS: methylPREDNISolone Sod Succ 40 MG VIAL IVP SCH ×2 (09:41→20:44)
[2020-10-03] MEDS: Linezolid 600 MG in Premix Bag 1 BAG IVPB SCH ×2 (09:41→20:44)
[2020-10-03] MEDS: Famotidine/PF 20 mg/2ml Vial SLOW IVP SCH ×2 (09:41→20:50)
[2020-10-03] MEDS: Insulin Glargine 25 UNITS in Pre-Filled Syringe 1 EACH SC SCH ×2 (09:43→20:52)
[2020-10-03] MEDS: Heparin 5,000 UNITS/ML VIAL SC SCH ×2 (09:44→20:43)
--- NOTE | 2020-10-03 09:50 | PRG ---
DATE OF SERVICE: 10/03/2020 SUBJECTIVE: This morning, the patient is more responsive and awake. She is nodding appropriately. She is off all sedation for 48 hours. We told her we will try to extubate her today. She desires not to be reintubated again. PHYSICAL EXAMINATION: VITAL SIGNS: Pulse 110, blood pressure 130/80, respirations 20, sats 95%. CHEST: Decreased breath sounds. No wheezing. HEART: Normal S1, S2. ABDOMEN: No masses. ASSESSMENT: Morbid obesity, probably sleep apnea, pneumonia respiratory failure. PLAN: In the process of trying to extubate. I am going to talk to the . She is on steroids still, aggressive neb treatments. Prognosis remains guarded. We will try and attempt to extubate. One-half hour of critical care time. Job ID: [id number]
[2020-10-03] MEDS: Metoprolol Tartrate 50 MG TAB PER TUBE SCH ×2 (10:48→20:42)
--- NOTE | 2020-10-03 10:59 | PDOC.HOSPP ---
- Subjective Encounter Date: 10/03/20 Encounter Time: 10:15 Subjective: Patient is on ventilator, she is tachycardic, - Objective Vital Signs & Weight: Vital Signs (12 hours) Temp Pulse Resp BP Pulse Ox 10/03/20 10:00 98.1 F 10/03/20 08:00 98.4 F 10/03/20 07:06 110 H 101/57 L 10/03/20 07:04 112 H 17 100 10/03/20 06:00 9 L 10/03/20 04:00 99.2 F 11 L 10/03/20 02:35 102 H 126/68 10/03/20 02:00 10 L 10/03/20 00:30 102 H 13 100 10/02/20 23:58 99.4 F 10/02/20 23:55 16 Weight Admit Weight 165 lb Weight 2.455 oz Most Recent Monitor Data Heart Rate from ECG 123 NIBP 108/76 NIBP BP-Mean 86 Respiration from ECG 23 SpO2 91 I&O: 10/02/20 10/03/20 10/04/20 06:59 06:59 06:59 Intake Total 2094.9 2598 62 Output Total 2050 2840 260 Balance 44.9 -242 -198 Result Diagrams: 10/03/20 04:00 10/03/20 04:00 Additional Labs: Accuchecks 10/03/20 10/02/20 10/02/20 10:48 22:30 15:25 POC Glucose 141 H 262 H 238 H 10/02/20 11:53 POC Glucose 301 H EKG Reviewed by me: Yes (Tachycardia) Hospitalist ROS - Review of Systems ROS unobtainable: due to endotracheal tube - Medication Medications: Active Medications Generic Name Dose Route Start Last Admin Trade Name Freq PRN Reason Stop Dose Admin Acetaminophen 650 mg 09/30/20 16:41 09/30/20 17:34 Acetaminophen 650 Mg/20.3 Ml Udcup PER TUBE 650 mg Q6H PRN Administration Fever > 101 or Mild Pain Albuterol/Ipratropium 3 ml 09/24/20 01:00 10/03/20 07:04 Ipratropium/Albuterol Sulfate 3 Ml Neb NEB 3 ml [id number] SAMUEL Administration Famotidine 20 mg 09/24/20 09:00 12/17/20 09:41 Famotidine/Pf 20 Mg/2ml Vial SLOW IVP 20 mg Q12HR SAMUEL Administration Heparin Sodium (Porcine) 5,000 units 09/24/20 09:00 10/03/20 09:44 Heparin 5,000 Units/Ml Vial SC 5,000 units BID SAMUEL Administration Dexmedetomidine HCl 400 mcg/ 100 mls @ 0 mls/hr 09/27/20 08:00 09/28/20 12:20 Sodium Chloride IVPB 100 mls INF SAMUEL Administration Protocol Per Protocol Insulin Glargine 25 units/ 0.25 mls @ 0 mls/hr 09/29/20 09:00 10/03/20 09:43 Miscellaneous Medication SC 0.25 mls BID SAMUEL Administration As Directed Linezolid 600 mg/ Device 300 mls @ 150 mls/hr 09/30/20 21:00 10/03/20 09:41 IVPB 10/07/20 21:01 300 mls Q12HR SAMUEL Administration Insulin Human Regular 0 units 09/27/20 16:06 10/02/20 17:41 Insulin Regular 300 Units/3 Ml Vial SC 6 unit .AGGRESSIVE SLIDING PRN Administration Aggressive Correctional Scale Labetalol HCl 10 mg 09/27/20 19:40 10/01/20 16:27 Labetalol Hcl 100 Mg/20 Ml Vial SLOW IVP 10 mg Q4H PRN Administration SBP Greater Than 170 Methylprednisolone Sodium Succinate 40 mg 10/02/20 21:00 10/03/20 09:41 Methylprednisolone Sod Succ 40 Mg Vial IVP 40 mg BID SAMUEL Administration Metoprolol Tartrate 50 mg 10/01/20 09:00 10/03/20 10:48 Metoprolol Tartrate 50 Mg Tab PER TUBE 50 mg BID SAMUEL Administration Polyethylene Glycol 17 gm 09/27/20 10:40 09/30/20 09:44 Polyethylene Glycol 3350 17 Gm Packet PER TUBE 10/07/20 10:41 17 gm DAILY PRN Administration Constipation Sodium Chloride 10 ml 09/24/20 09:00 10/03/20 10:48 Flush - Normal Saline 10 Ml Syringe IVF 10 ml Q12HR SAMUEL Administration - Exam General Appearance: ill appearing General - other findings: On ventilator Eye: PERRL ENT: normocephalic atraumatic Neck: supple, symmetric, no JVD Heart: RRR, no murmur, no gallops Heart - other findings: Tachycardia Respiratory: no wheezes, no rales, no ronchi Respiratory - other findings: Reduced air entry Gastrointestinal: soft, non-distended, normal bowel sounds Gastrointestinal - other findings: Obesity noted Extremities: 1+ LE edema Skin: normal turgor, no lesions Neurological - other findings: Unable to assess due to intubated status Hosp A/P (1) Acute on chronic respiratory failure with hypoxemia Code(s): J96.21 - ACUTE AND CHRONIC RESPIRATORY FAILURE WITH HYPOXIA Status: Acute (2) Pneumonia involving right lung Code(s): J18.9 - PNEUMONIA, UNSPECIFIED ORGANISM Status: Acute (3) COPD exacerbation Code(s): J44.1 - CHRONIC OBSTRUCTIVE PULMONARY DISEASE W (ACUTE) EXACERBATION Status: Acute (4) Anemia, normocytic normochromic Code(s): D64.9 - ANEMIA, UNSPECIFIED Status: Chronic (5) Diabetes mellitus, type II Status: Chronic Qualifiers: Diabetes mellitus rn long term care insulin use: without rn long term care use Diabetes mellitus complication status: without complication Qualified Code(s): E11.9 - Type 2 diabetes mellitus without complications (6) Hypertension Code(s): I10 - ESSENTIAL (PRIMARY) HYPERTENSION Status: Chronic Qualifiers: Hypertension type: essential hypertension Qualified Code(s): I10 - Essential (primary) hypertension - Plan old records reviewed/req, luna catheter, continue antibiotics, respiratory therapy, DVT proph w/heparin, GI proph Patient is currently on meropenem and Zyvox Continue Solu-Medrol Ventilatory management as per pulmonology and weaning and extubation will defer to them Given her end-stage COPD suspecting after extubation patient may not do well, p atient is DNR, will consult palliative care for evaluation
[2020-10-03] MEDS: ALPRAZolam 0.25 MG TAB PO PRN (13:08)
[2020-10-03] MEDS: MEROPENEM 1 GM/50 ML 1 GM in Premix Bag 1 BAG IVPB SCH ×2 (13:36→23:07)
[2020-10-03] MEDS: Insulin Regular 300 UNITS/3 ML VIAL SC PRN (18:37)
[2020-10-03] MEDS: risperiDONE 0.25 MG TAB PO SCH (21:03)
[2020-10-04 04:57] LABS: ALT (SGPT) 39 U/L (8-55); AST (SGOT) 18 U/L (5-34); Albumin 2.8 g/dL (3.5-5.0); Alkaline Phosphatase 67 U/L (40-110); Anion Gap 11 mmol/L (10-20); BUN (Urea Nitrogen) 21 mg/dL (9.8-20.1); Bilirubin, Total 0.5 mg/dL (0.2-1.2); Calc. Creatinine Clearance 0 mL/min (70-130); Calcium 8.4 mg/dL (7.8-10.44); Carbon Dioxide 32 mmol/L (22-29); Chloride 100 mmol/L (98-107); Globulin 3.1 g/dL (2.4-3.5); Glucose 120 mg/dL (70-105); Potassium 4.1 mmol/L (3.5-5.1); Protein, Total 5.9 g/dL (6.0-8.3); Sodium 139 mmol/L (136-145)
[2020-10-04 05:47] LABS: Band 9 % (5-11); Hemoglobin 10.9 g/dL (12.0-16.0); Lymphocytes 8 % (21-51); MDiff Complete? YES; Mean Corpuscular HGB CONC 32.5 g/dL (32.0-36.0); Mean Corpuscular Volume 89.3 fL (78.0-98.0); Mean Platelet Volume 8.2 fL (7.4-10.4); Monocytes 5 % (0-10); Neutrophil 78 % (42-75); Platelet Count 184 thou/uL (130-400); RBC Distribution Width 15.8 % (11.5-14.5); Red Blood Cell (RBC) Count 3.76 mill/uL (4.20-5.40)
[2020-10-04] MEDS: MEROPENEM 1 GM/50 ML 1 GM in Premix Bag 1 BAG IVPB SCH ×3 (05:48→21:40)
[2020-10-04] MEDS: Linezolid 600 MG in Premix Bag 1 BAG IVPB SCH ×2 (08:19→20:38)
[2020-10-04] MEDS: Famotidine/PF 20 mg/2ml Vial SLOW IVP SCH (08:20)
[2020-10-04] MEDS: Heparin 5,000 UNITS/ML VIAL SC SCH (08:22)
[2020-10-04] MEDS: methylPREDNISolone Sod Succ 40 MG VIAL IVP SCH ×2 (08:25→20:36)
[2020-10-04] MEDS: Metoprolol Tartrate 50 MG TAB PER TUBE SCH (08:51)
[2020-10-04] MEDS: risperiDONE 0.25 MG TAB PO SCH (08:51)
[2020-10-04] MEDS: Insulin Glargine 25 UNITS in Pre-Filled Syringe 1 EACH SC SCH ×2 (08:51→20:36)
--- NOTE | 2020-10-04 09:20 | PRG ---
DATE OF SERVICE: 10/04/2020 SUBJECTIVE: This morning, she is awake, alert, responsive. She is extubated yesterday. To my surprise, she is doing well. No distress. OBJECTIVE: VITAL SIGNS: Temperature 97, pulse 80, saturations are 92 on 2 L, blood pressure 103/61. She has apparently been CHEST: No wheezing. No crackles. CARDIAC: Normal S1 and S2. No gallops. ABDOMEN: No masses. LABORATORY DATA: Lytes are normal. Sputum did grow MRSA. IMPRESSION: Right lower lobe pneumonia, morbid obesity, end-stage chronic obstructive pulmonary disease. Meropenem and Zyvox on board. IV steroids. She can be transferred to the MICU. Nocturnal CPAP, BiPAP as tolerated. We will follow. Job ID: [id number]
--- NOTE | 2020-10-04 10:42 | PDOC.HOSPP ---
- Subjective Encounter Date: 10/04/20 Encounter Time: 10:00 Subjective: Patient seen and examined bedside today, patient is so weak that she was net able to lift her both upper extremity and lower extremity, she was able to wiggle her toes, she has normal speech, this morning she was complaining of cramps in her legs, - Objective Vital Signs & Weight: Vital Signs (12 hours) Temp Pulse Resp Pulse Ox 10/04/20 08:00 97.7 F 96 10/04/20 07:19 99 10/04/20 07:17 86 20 99 10/04/20 04:00 98.6 F 10/04/20 00:00 98.4 F 10/03/20 23:14 76 20 95 Weight Admit Weight 165 lb Weight 156 lb 8.451 oz Most Recent Monitor Data Heart Rate from ECG 73 NIBP 94/61 NIBP BP-Mean 72 Respiration from ECG 20 SpO2 95 I&O: 10/03/20 10/04/20 10/05/20 06:59 06:59 06:59 Intake Total 2598 1173.4 150 Output Total 2840 1915 230 Balance -242 -741.6 -80 Result Diagrams: 10/04/20 04:15 10/04/20 04:15 Additional Labs: Accuchecks 10/04/20 10/03/20 10/03/20 04:17 20:28 17:19 POC Glucose 116 H 130 H 235 H 10/03/20 10:48 POC Glucose 141 H EKG Reviewed by me: Yes Hospitalist ROS - Review of Systems Constitutional: reports: weakness, malaise. denies: fever, chills, sweats, other Respiratory: reports: shortness of breath, SOB with excertion. denies: cough, dry, hemoptysis, pleuritic pain, sputum, wheezing, other Cardiovascular: denies: chest pain, palpitations, orthopnea, paroxysmal noc. dyspnea, edema, light headedness, other Gastrointestinal: denies: nausea, vomiting, abdominal pain, diarrhea, constipation, melena, hematochezia, other Genitourinary: denies: dysuria, frequency, incontinence, hematuria, retention, other Musculoskeletal: denies: neck pain, shoulder pain, arm pain, back pain, hand pain, leg pain, foot pain, other Skin: denies: rash, lesions, guicho, bruising, other - Medication Medications: Active Medications Generic Name Dose Route Start Last Admin Trade Name Freq PRN Reason Stop Dose Admin Acetaminophen 650 mg 09/30/20 16:41 09/30/20 17:34 Acetaminophen 650 Mg/20.3 Ml Udcup PER TUBE 650 mg Q6H PRN Administration Fever > 101 or Mild Pain Albuterol/Ipratropium 3 ml 09/24/20 01:00 10/04/20 07:17 Ipratropium/Albuterol Sulfate 3 Ml Neb NEB 3 ml [id number] SAMUEL Administration Alprazolam 0.25 mg 10/03/20 11:48 10/03/20 13:08 Alprazolam 0.25 Mg Tab PO 0.25 mg TIDPRN PRN Administration Anxiety Famotidine 20 mg 09/24/20 09:00 10/04/20 08:20 Famotidine/Pf 20 Mg/2ml Vial SLOW IVP 20 mg Q12HR SAMUEL Administration Insulin Glargine 25 units/ 0.25 mls @ 0 mls/hr 09/29/20 09:00 10/04/20 08:51 Miscellaneous Medication SC 0.25 mls BID SAMUEL Administration As Directed Linezolid 600 mg/ Device 300 mls @ 150 mls/hr 09/30/20 21:00 10/04/20 08:19 IVPB 10/07/20 21:01 300 mls Q12HR SAMUEL Administration Meropenem 1 gm/ Device 50 mls @ 200 mls/hr 10/03/20 14:00 10/04/20 05:48 IVPB 10/10/20 14:01 50 mls Q8HR SAMUEL Administration Insulin Human Regular 0 units 09/27/20 16:06 10/03/20 18:37 Insulin Regular 300 Units/3 Ml Vial SC 6 unit .AGGRESSIVE SLIDING PRN Administration Aggressive Correctional Scale Labetalol HCl 10 mg 09/27/20 19:40 10/01/20 16:27 Labetalol Hcl 100 Mg/20 Ml Vial SLOW IVP 10 mg Q4H PRN Administration SBP Greater Than 170 Methylprednisolone Sodium Succinate 40 mg 10/02/20 21:00 10/04/20 08:25 Methylprednisolone Sod Succ 40 Mg Vial IVP 40 mg BID SAMUEL Administration Metoprolol Tartrate 50 mg 10/01/20 09:00 10/04/20 08:51 Metoprolol Tartrate 50 Mg Tab PER TUBE 50 mg BID SAMUEL Administration Polyethylene Glycol 17 gm 09/27/20 10:40 09/30/20 09:44 Polyethylene Glycol 3350 17 Gm Packet PER TUBE 10/07/20 10:41 17 gm DAILY PRN Administration Constipation Risperidone 0.25 mg 10/04/20 09:00 10/04/20 08:51 Risperidone 0.25 Mg Tab PO 10/06/20 09:01 0.25 mg DAILY SAMUEL Administration Sodium Chloride 10 ml 09/24/20 09:00 10/03/20 20:55 Flush - Normal Saline 10 Ml Syringe IVF 10 ml Q12HR SAMUEL Administration - Exam General Appearance: NAD, ill appearing Eye: PERRL, anicteric sclera ENT: normocephalic atraumatic, no oropharyngeal lesions Neck: supple, symmetric, no JVD Heart: RRR, no murmur, no gallops, no rubs Respiratory: no wheezes, no rales, no ronchi Respiratory - other findings: Air entry reduced bilaterally, Gastrointestinal: soft, non-tender, non-distended, normal bowel sounds Gastrointestinal - other findings: Luna catheter in place, colostomy in place with the parastomal hernia Extremities: no clubbing, no edema Skin: normal turgor Neurological: no focal deficits Neurological - other findings: Functional quadriplegia because of weakness Musculoskeletal - other findings: Functional quadriplegia Psychiatric: normal affect, normal behavior Hosp A/P (1) Acute on chronic respiratory failure with hypoxemia Code(s): J96.21 - ACUTE AND CHRONIC RESPIRATORY FAILURE WITH HYPOXIA Status: Acute (2) Pneumonia involving right lung Code(s): J18.9 - PNEUMONIA, UNSPECIFIED ORGANISM Status: Acute (3) COPD exacerbation Code(s): J44.1 - CHRONIC OBSTRUCTIVE PULMONARY DISEASE W (ACUTE) EXACERBATION Status: Acute (4) Anemia, normocytic normochromic Code(s): D64.9 - ANEMIA, UNSPECIFIED Status: Chronic (5) Diabetes mellitus, type II Status: Chronic Qualifiers: Diabetes mellitus door fitter insulin use: without door fitter use Diabetes mellitus complication status: without complication Qualified Code(s): E11.9 - Type 2 diabetes mellitus without complications (6) Hypertension Code(s): I10 - ESSENTIAL (PRIMARY) HYPERTENSION Status: Chronic Qualifiers: Hypertension type: essential hypertension Qualified Code(s): I10 - Essential (primary) hypertension (7) Functional quadriplegia Code(s): R53.2 - FUNCTIONAL QUADRIPLEGIA Status: Acute (8) Physical deconditioning Code(s): R53.81 - OTHER MALAISE Status: Acute - Plan old records reviewed/req, luna catheter, continue antibiotics, PT/OT, secondary social studies teacher, respiratory therapy, DVT proph w/heparin Patient is currently on meropenem and Zyvox Continue Solu-Medrol We will add Pulmicort nebulization twice daily Patient will need PT OT Based on her level of deconditioning patient will need placement for long-term, Patient is at high risk for recurrent admission given her end-stage COPD Palliative care on the case Medication reviewed and continue provide symptomatic and supportive care,
[2020-10-04] MEDS ORDERED: Loratadine 10 MG TAB PO PRN (10:46)
[2020-10-04] MEDS ORDERED: hydrALAZINE 20 MG/ML VIAL SLOW IVP PRN (10:46)
[2020-10-04] MEDS ORDERED: Calcium Carbonate 500 MG ChewTAB PO PRN (10:46)
[2020-10-04] MEDS ORDERED: Sodium Chloride 0.65% Nasal 44 ML BOT EA NARE PRN (10:46)
[2020-10-04] MEDS ORDERED: Ondansetron ODT 4 MG TAB SL PRN (10:46)
[2020-10-04] MEDS ORDERED: Diabetic Tussin 200 MG/10 ML UDCUP PO PRN (10:46)
[2020-10-04] MEDS ORDERED: Bisacodyl 10 MG SUPP PR PRN (10:46)
[2020-10-04] MEDS ORDERED: Senokot S 8.6-50 MG TAB PO PRN (10:46)
[2020-10-04] MEDS ORDERED: Cepastat Lozenges 1 LOZ PO PRN (10:46)
[2020-10-04] MEDS ORDERED: Ondansetron PF 4 MG/2 ML Vial IVP PRN (10:46)
[2020-10-04] MEDS ORDERED: Benzonatate 100 MG CAP PO PRN (10:46)
[2020-10-04] MEDS ORDERED: Loperamide HCl 2 MG CAP PO PRN (10:46)
[2020-10-04] MEDS ORDERED: Polyethylene Glycol 3350 17 GM Packet PO PRN (10:49)
[2020-10-04] MEDS: ALPRAZolam 0.25 MG TAB PO PRN ×2 (11:43→18:37)
[2020-10-04] MEDS: Insulin Regular 300 UNITS/3 ML VIAL SC PRN ×2 (11:54→17:32)
[2020-10-04] MEDS: Acetaminophen 325 MG TAB PO PRN ×2 (12:28→20:37)
--- NOTE | 2020-10-04 13:39 | PDOC.FMACP ---
Advance Care Planning - Problem (1) Palliative care encounter Status: Acute Code(s): Z51.5 - ENCOUNTER FOR PALLIATIVE CARE (2) [id number] respiratory failure Status: Acute Code(s): J96.20 - ACUTE AND CHR RESP FAILURE, UNSP W HYPOXIA OR HYPERCAPNIA (3) Functional quadriplegia Status: Acute Code(s): R53.2 - FUNCTIONAL QUADRIPLEGIA (4) Physical deconditioning Status: Acute Code(s): R53.81 - OTHER MALAISE (5) Diabetes mellitus, type II Status: Chronic Qualifiers: Diabetes mellitus regional intermodal truck driver insulin use: without senior living use Diabetes mellitus complication status: without complication Qualified Code(s): E11.9 - Type 2 diabetes mellitus without complications (6) Hypertension Status: Chronic Code(s): I10 - ESSENTIAL (PRIMARY) HYPERTENSION Qualifiers: Hypertension type: essential hypertension Qualified Code(s): I10 - Essential (primary) hypertension (7) Obesity (BMI 30-39.9) Status: Chronic Code(s): E66.9 - OBESITY, UNSPECIFIED - Note Participants: patient, palliative care Summary: Palliative care addressed Advanced Care Planning. The diagnosis, prognosis and goals of care were discussed. Appropriate forms and documentation to accomplish the goals of care were discussed. All questions were answered. Ms Werner was visited by PC RN initially, I followed up with conversation. *Patient confirmed her desire to remain with full resuscitation measures *Completed MPOA and Directive to Physician. Documents were notarized and she was given origional and copy as well as copy placed on patient chart for medical records. *Desires to return to home setting with home health/pt and not return to skilled setting for rehab. Please also refer to Palliative Care notes in note section. Communicated with Dr Mcfarlane. Time Spent (mins): 40
[2020-10-04] MEDS: Budesonide 0.5 MG/2 ML NEB NEB SCH (18:23)
[2020-10-04] MEDS: Famotidine 20 MG TAB PO SCH (20:37)
[2020-10-04] MEDS: guaiFENesin ER 600 MG TAB PO SCH (20:37)
[2020-10-04] MEDS: Metoprolol Tartrate 50 MG TAB PO SCH (20:39)
[2020-10-05] MEDS: ALPRAZolam 0.25 MG TAB PO PRN ×2 (00:58→15:44)
[2020-10-05] MEDS: Acetaminophen 325 MG TAB PO PRN (03:40)
[2020-10-05 05:38] VITALS: BMI 26.3
[2020-10-05] MEDS: MEROPENEM 1 GM/50 ML 1 GM in Premix Bag 1 BAG IVPB SCH ×2 (05:41→13:39)
[2020-10-05] MEDS: Budesonide 0.5 MG/2 ML NEB NEB SCH ×2 (07:15→19:30)
[2020-10-05] MEDS: Linezolid 600 MG in Premix Bag 1 BAG IVPB SCH ×2 (08:55→22:14)
[2020-10-05] MEDS: Enoxaparin Sodium 40 MG/0.4 ML SYRINGE SC SCH (08:57)
[2020-10-05] MEDS: methylPREDNISolone Sod Succ 40 MG VIAL IVP SCH ×3 (08:58→22:14)
[2020-10-05] MEDS: guaiFENesin ER 600 MG TAB PO SCH ×3 (09:03→22:13)
[2020-10-05] MEDS: Insulin Glargine 25 UNITS in Pre-Filled Syringe 1 EACH SC SCH ×2 (09:15→22:48)
[2020-10-05] MEDS: risperiDONE 0.25 MG TAB PO SCH (09:53)
[2020-10-05] MEDS: Famotidine 20 MG TAB PO SCH ×2 (09:54→22:13)
[2020-10-05] MEDS: Ascorbic Acid 500 mg Chewable Tablet PO SCH (09:55)
--- NOTE | 2020-10-05 10:17 | PRG ---
DATE OF SERVICE: 10/05/2020 SUBJECTIVE: She actually feels very well. She says she is a little stiff today compared to usual. OBJECTIVE: VITAL SIGNS: Temperature 97.9, pulse 99, blood pressure 101/80, and O2 saturation 98%. HEENT: Unremarkable. NECK: No adenopathy or JVD. LUNGS: Fairly clear. CARDIAC: S1 and S2. Regular. ABDOMEN: Soft. EXTREMITIES: Slight edema. LABORATORY DATA: White blood cell count 12, hematocrit 33.6, and platelet count 184. ASSESSMENT: 1. Pneumonia. 2. Status post blake virus about a month ago. 3. Chronic obstructive pulmonary disease. PLAN: She has transfer orders. She is continuing Trilogy ventilator at night. She is on broad-spectrum antibiotics. I have reduced her metoprolol dose because she is only on 12.5 twice daily at home and the 50 twice daily was too much. I have reduced her steroid dose. Job ID: [id number]
[2020-10-05] MEDS: Saccharomyces boulardii 250 MG CAP PO SCH (10:19)
[2020-10-05] MEDS: Metoprolol Tartrate 50 MG TAB PO SCH ×3 (10:55→23:00)
--- NOTE | 2020-10-05 16:07 | EKG ---
Test Reason : EMERGENCY Blood Pressure : / mmHG Vent. Rate : 106 BPM Atrial Rate : 106 BPM P-R Int : 138 ms QRS Dur : 062 ms QT Int : 300 ms P-R-T Axes : 078 038 054 degrees QTc Int : 398 ms Sinus tachycardia Possible Left atrial enlargement Borderline ECG Confirmed by BRAYAN QUACH DO ([id number]), advertising editor TANG SUTTON ([id number]) on 10/05/2020 4:07:41 PM Referred By: Confirmed By:BRAYAN QUACH DO
[2020-10-05] MEDS: Insulin Regular 300 UNITS/3 ML VIAL SC PRN (16:40)
--- NOTE | 2020-10-05 19:37 | PDOC.HOSPP ---
- Subjective Encounter Date: 10/05/20 Encounter Time: 12:00 Subjective: F/u: COVID The patient states she feels better, however she still has diffuse weakness and complains of being unable to move. The patient states she wears 3L of oxygen at home She uses ventolin inhaler at home and duoneb qid - Objective Vital Signs & Weight: Vital Signs (12 hours) Temp Pulse Resp Pulse Ox 10/05/20 16:00 97.9 F 10/05/20 12:00 97.8 F 10/05/20 11:51 103 H 24 H 100 10/05/20 08:00 100 Weight Admit Weight 165 lb Weight 158 lb 4.8 oz Most Recent Monitor Data Heart Rate from ECG 90 NIBP 108/64 NIBP BP-Mean 78 Respiration from ECG 19 SpO2 99 I&O: 10/04/20 10/05/20 10/06/20 06:59 06:59 06:59 Intake Total 1173.4 1556 444 Output Total 1915 850 550 Balance -741.6 706 -106 Result Diagrams: 10/04/20 04:15 10/04/20 04:15 Additional Labs: Accuchecks 10/05/20 10/04/20 00:11 20:35 POC Glucose 123 H 126 H Hospitalist ROS - Review of Systems Constitutional: denies: fever, chills - Medication Medications: Active Medications Generic Name Dose Route Start Last Admin Trade Name Freq PRN Reason Stop Dose Admin Acetaminophen 650 mg 10/04/20 11:31 10/05/20 03:40 Acetaminophen 325 Mg Tab PO 650 mg Q6H PRN Administration Mild Pain (1-3) Albuterol/Ipratropium 3 ml 09/24/20 01:00 10/05/20 11:51 Ipratropium/Albuterol Sulfate 3 Ml Neb NEB 3 ml [id number] SAMUEL Administration Alprazolam 0.25 mg 10/03/20 11:48 10/05/20 15:44 Alprazolam 0.25 Mg Tab PO 0.25 mg TIDPRN PRN Administration Anxiety Ascorbic Acid 1,000 mg 10/05/20 09:00 10/05/20 09:55 Ascorbic Acid 500 Mg Chewable Tablet PO 1,000 mg DAILY SAMUEL Administration Budesonide 0.5 mg 10/04/20 18:30 10/05/20 07:15 Budesonide 0.5 Mg/2 Ml Neb NEB 0.5 mg BID-RT SAMUEL Administration Enoxaparin Sodium 40 mg 10/05/20 09:00 10/05/20 08:57 Enoxaparin Sodium 40 Mg/0.4 Ml Syringe SC 40 mg 0900 SAMUEL Administration Famotidine 20 mg 10/04/20 21:00 10/05/20 09:54 Famotidine 20 Mg Tab PO 20 mg BID SAMUEL Administration Guaifenesin 600 mg 10/04/20 21:00 10/05/20 09:55 Guaifenesin Er 600 Mg Tab PO 600 mg Q12HR SAMUEL Administration Insulin Glargine 25 units/ 0.25 mls @ 0 mls/hr 09/29/20 09:00 10/05/20 09:15 Miscellaneous Medication SC 0.25 mls BID SAMUEL Administration As Directed Linezolid 600 mg/ Device 300 mls @ 150 mls/hr 09/30/20 21:00 10/05/20 08:55 IVPB 10/07/20 21:01 300 mls Q12HR SAMUEL Administration Meropenem 1 gm/ Device 50 mls @ 200 mls/hr 10/03/20 14:00 10/05/20 13:39 IVPB 10/10/20 14:01 50 mls Q8HR SAMUEL Administration Insulin Human Regular 0 units 09/27/20 16:06 10/05/20 16:40 Insulin Regular 300 Units/3 Ml Vial SC 6 unit .AGGRESSIVE SLIDING PRN Administration Aggressive Correctional Scale Labetalol HCl 10 mg 09/27/20 19:40 10/01/20 16:27 Labetalol Hcl 100 Mg/20 Ml Vial SLOW IVP 10 mg Q4H PRN Administration SBP Greater Than 170 Methylprednisolone Sodium Succinate 20 mg 10/05/20 09:00 10/05/20 10:55 Methylprednisolone Sod Succ 40 Mg Vial IVP Not Given BID SAMUEL Metoprolol Tartrate 12.5 mg 10/05/20 09:00 10/05/20 10:55 Metoprolol Tartrate 50 Mg Tab PO 12.5 mg BID SAMUEL Administration Risperidone 0.25 mg 10/04/20 09:00 10/05/20 09:53 Risperidone 0.25 Mg Tab PO 10/06/20 09:01 0.25 mg DAILY SAMUEL Administration Saccharomyces Boulardii 250 mg 10/05/20 09:00 10/05/20 10:19 Saccharomyces Boulardii 250 Mg Cap PO 250 mg DAILY SAMUEL Administration Sodium Chloride 10 ml 09/24/20 09:00 10/05/20 10:19 Flush - Normal Saline 10 Ml Syringe IVF 10 ml Q12HR SAMUEL Administration - Exam General Appearance: NAD, awake alert General - other findings: on 3L oxygen Eye: PERRL, anicteric sclera ENT: normocephalic atraumatic, no oropharyngeal lesions Neck: no JVD Heart: RRR, no murmur, no gallops, no rubs Respiratory: CTAB, no wheezes, no rales, no ronchi Gastrointestinal: soft, non-tender, non-distended, normal bowel sounds Extremities: no cyanosis, no clubbing, no edema Skin: normal turgor, no lesions, no rashes Neurological: cranial nerve grossly intact, normal sensation to touch, no focal deficits, no new deficit Musculoskeletal: normal tone, normal strength, no muscle wasting Hosp A/P - Plan Chest Xray 09/24: dense consolidation in the right lower lobe suggesting pneumonia/aspiration This is a 60 year old female who presented with respiratory distress requiring BIPAP, was intubated. She is now on 3L nasal cannula Acute hypoxic respiratory failure secondary to MRSA pneumonia + COPD exacerbation - chest X ray showed infiltrate right mid and lower lung. Blood cultures negative x 2. Tracheal culture grew MRSA - Continue meropenem and linezolid. IV steroids has been weaned to 20 mg bid. Continue mucinex and resume home duonebs - she is extubated and on 3L nasal cannula saturating 99%. Will order PT and michel pittman to the medical floor. Leukocytosis - WBC improving to 12, continue antibiotics mentioned above Anemia - Hb 10.9, stable, will monitor Hypertension - metoprolol dose reduced to 12.5 mg bid due to severe COPD
[2020-10-06] MEDS: MEROPENEM 1 GM/50 ML 1 GM in Premix Bag 1 BAG IVPB SCH ×3 (00:24→15:31)
[2020-10-06] MEDS: ALPRAZolam 0.25 MG TAB PO PRN ×3 (00:27→15:31)
[2020-10-06 06:28] LABS: Hemoglobin 10.5 g/dL (12.0-16.0); Mean Corpuscular HGB CONC 32.6 g/dL (32.0-36.0); Mean Corpuscular Hemoglobin 29.5 pg (27.0-31.0); Mean Corpuscular Volume 90.4 fL (78.0-98.0); Mean Platelet Volume 7.6 fL (7.4-10.4); Platelet Count 212 thou/uL (130-400); Red Blood Cell (RBC) Count 3.57 mill/uL (4.20-5.40); White Blood Cell (WBC) Count 12.4 thou/uL (4.8-10.8)
[2020-10-06] MEDS: Budesonide 0.5 MG/2 ML NEB NEB SCH ×2 (07:22→19:55)
[2020-10-06] MEDS: Famotidine 20 MG TAB PO SCH ×2 (08:23→20:07)
[2020-10-06] MEDS: Ascorbic Acid 500 mg Chewable Tablet PO SCH (08:24)
[2020-10-06] MEDS: risperiDONE 0.25 MG TAB PO SCH (08:24)
[2020-10-06] MEDS: guaiFENesin ER 600 MG TAB PO SCH ×2 (08:24→20:07)
[2020-10-06] MEDS: Saccharomyces boulardii 250 MG CAP PO SCH (08:24)
[2020-10-06] MEDS: Metoprolol Tartrate 50 MG TAB PO SCH ×2 (08:24→20:07)
[2020-10-06] MEDS: methylPREDNISolone Sod Succ 40 MG VIAL IVP SCH (08:25)
[2020-10-06] MEDS: Enoxaparin Sodium 40 MG/0.4 ML SYRINGE SC SCH (08:25)
[2020-10-06] MEDS: Insulin Glargine 25 UNITS in Pre-Filled Syringe 1 EACH SC SCH ×2 (08:27→20:07)
[2020-10-06] MEDS: Linezolid 600 MG in Premix Bag 1 BAG IVPB SCH ×2 (08:47→20:08)
--- NOTE | 2020-10-06 14:03 | PRG ---
DATE OF SERVICE: 10/06/2020 SUBJECTIVE: The patient is working with physical therapy as I was coming to the room. She seems like she is doing better every day. OBJECTIVE: VITAL SIGNS: Temperature 98.4, pulse 79, respirations 18, O2 saturation 96% on 3 L, and blood pressure 114/57. HEENT: Unremarkable. NECK: No adenopathy or JVD. LUNGS: Fairly clear anteriorly. CARDIAC: S1 and S2. Regular. ABDOMEN: Soft. EXTREMITIES: No edema. LABORATORY DATA: White blood cell count 12.4, hematocrit 32, and platelet count 212. ASSESSMENT: 1. Right lower lobe pneumonia. 2. End-stage chronic obstructive pulmonary disease. PLAN: Preferably, she will go to [facility] for rehab. She is on meropenem - I am not quite sure what the justification of that is. The only thing she has grown out is MRSA from a tracheal aspirate, which could very well be a contaminant. She had vancomycin for a number of days and now has had Zyvox for a number of days. If the Zyvox was started on 09/30, then I think her last dose should be tomorrow, and antibiotics could be stopped completely. Job ID: [id number]
--- NOTE | 2020-10-06 15:39 | PDOC.HOSPP ---
- Subjective Encounter Date: 10/06/20 Encounter Time: 12:00 Subjective: F/u: pneumonia, weakness The patient's shortness of breath and cough has improved substantially. However, she still complains of weakness and cannot move. She is now able to move her left arm, but can barely move her legs she states. She says the last time she was intubated, she was able to move around faster than this time She wears 3L of oxygen at home normally. She desaturates if she goes less than 2L at home The patient normally ambulates with a walker at home. She states that she prefers to go home with home health because she has a walker and hospital bed set up at home, but if she needs IV meropenem still then she would be okay with going to [facility] rehab - Objective Vital Signs & Weight: Vital Signs (12 hours) Temp Pulse Resp BP Pulse Ox 10/06/20 15:16 98.0 F 91 18 103/54 L 93 L 10/06/20 13:45 84 18 94 L 10/06/20 11:36 98.4 F 79 18 114/57 L 96 10/06/20 08:00 100 10/06/20 07:26 100 10/06/20 07:25 81 18 100 10/06/20 07:16 98.3 F 81 18 122/62 96 10/06/20 04:20 97.6 F 81 16 111/56 L 96 Weight Admit Weight 165 lb Weight 176 lb 12.8 oz Most Recent Monitor Data Heart Rate from ECG 90 NIBP 108/64 NIBP BP-Mean 78 Respiration from ECG 19 SpO2 99 I&O: 10/05/20 10/06/20 10/07/20 06:59 06:59 06:59 Intake Total 1556 1094 480 Output Total 850 1200 Balance 706 -106 480 Result Diagrams: 10/06/20 05:12 10/04/20 04:15 Additional Labs: Accuchecks 10/06/20 10/06/20 10/06/20 11:43 08:48 04:26 POC Glucose 143 H 79 86 10/05/20 23:50 POC Glucose 138 H Hospitalist ROS - Review of Systems Constitutional: denies: fever, chills - Medication Medications: Active Medications Generic Name Dose Route Start Last Admin Trade Name Freq PRN Reason Stop Dose Admin Acetaminophen 650 mg 10/04/20 11:31 10/05/20 03:40 Acetaminophen 325 Mg Tab PO 650 mg Q6H PRN Administration Mild Pain (1-3) Albuterol/Ipratropium 3 ml 09/24/20 01:00 10/06/20 13:45 Ipratropium/Albuterol Sulfate 3 Ml Neb NEB 3 ml [id number] SAMUEL Administration Alprazolam 0.25 mg 10/03/20 11:48 10/06/20 15:31 Alprazolam 0.25 Mg Tab PO 0.25 mg TIDPRN PRN Administration Anxiety Ascorbic Acid 1,000 mg 10/05/20 09:00 10/06/20 08:24 Ascorbic Acid 500 Mg Chewable Tablet PO 1,000 mg DAILY SAMUEL Administration Budesonide 0.5 mg 10/04/20 18:30 10/06/20 07:22 Budesonide 0.5 Mg/2 Ml Neb NEB 0.5 mg BID-RT SAMUEL Administration Enoxaparin Sodium 40 mg 10/05/20 09:00 10/06/20 08:25 Enoxaparin Sodium 40 Mg/0.4 Ml Syringe SC 40 mg 0900 SAMUEL Administration Famotidine 20 mg 10/04/20 21:00 10/06/20 08:23 Famotidine 20 Mg Tab PO 20 mg BID SAMUEL Administration Guaifenesin 600 mg 10/04/20 21:00 10/06/20 08:24 Guaifenesin Er 600 Mg Tab PO 600 mg Q12HR SAMUEL Administration Insulin Glargine 25 units/ 0.25 mls @ 0 mls/hr 09/29/20 09:00 10/06/20 08:27 Miscellaneous Medication SC 0.25 mls BID SAMUEL Administration As Directed Linezolid 600 mg/ Device 300 mls @ 150 mls/hr 09/30/20 21:00 10/06/20 08:47 IVPB 10/07/20 21:01 300 mls Q12HR SAMUEL Administration Meropenem 1 gm/ Device 50 mls @ 200 mls/hr 10/06/20 08:00 10/06/20 15:31 IVPB 10/10/20 16:01 50 mls 0800,1600,2359 SAMUEL Administration Insulin Human Regular 0 units 09/27/20 16:06 10/05/20 16:40 Insulin Regular 300 Units/3 Ml Vial SC 6 unit .AGGRESSIVE SLIDING PRN Administration Aggressive Correctional Scale Labetalol HCl 10 mg 09/27/20 19:40 10/01/20 16:27 Labetalol Hcl 100 Mg/20 Ml Vial SLOW IVP 10 mg Q4H PRN Administration SBP Greater Than 170 Methylprednisolone Sodium Succinate 20 mg 10/05/20 09:00 10/06/20 08:25 Methylprednisolone Sod Succ 40 Mg Vial IVP 20 mg BID SAMUEL Administration Metoprolol Tartrate 12.5 mg 10/05/20 09:00 10/06/20 08:24 Metoprolol Tartrate 50 Mg Tab PO 12.5 mg BID SAMUEL Administration Saccharomyces Boulardii 250 mg 10/05/20 09:00 10/06/20 08:24 Saccharomyces Boulardii 250 Mg Cap PO 250 mg DAILY SAMUEL Administration Sodium Chloride 10 ml 09/24/20 09:00 10/06/20 08:44 Flush - Normal Saline 10 Ml Syringe IVF 10 ml Q12HR SAMUEL Administration - Exam General Appearance: NAD, awake alert Eye: PERRL, anicteric sclera ENT: normocephalic atraumatic, no oropharyngeal lesions Neck: no JVD Heart: RRR, no murmur, no gallops, no rubs Respiratory: CTAB, no wheezes, no rales, no ronchi Gastrointestinal: soft, non-tender, non-distended, normal bowel sounds Extremities: no edema Extremities - other findings: can lift legs, but decreased ROM. Difficulty lifting right arm, can move le Neurological - other findings: Babinski sign mute . Reflexes 1+ patellear Musculoskeletal - other findings: strength 2/5 lower extremities. 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 She is now on 3L nasal cannula Acute hypoxic respiratory failure secondary to MRSA pneumonia + COPD exacerbation - chest X ray showed infiltrate right mid and lower lung. Blood cultures negative x 2. Tracheal culture grew MRSA . - she received 9 days of cefepime 09/24 to 10/03, however WBC continued to increase to up to 24. Linezolid started 09/30 with improvement in white blood cell count. Will likely d/c linezolid tomorrow after 7 days. - will discontinue meropenem since patient has respiratory symptoms currently and is on her baseline oxygen requirement Generalized weakness - possibly ICU myopathy - patient still has profound weakness and is unable to get up without assistance. Will d/c IV steroids and switch to oral - continue physical therapy. Patient prefers to go home rather than rehab Leukocytosis - WBC improving to 12, will d/c steroids and switch to oral steroids 40 mg daily Anemia - Hb 10.9, stable, will monitor Hypertension - metoprolol dose reduced to 12.5 mg bid due to severe COPD
[2020-10-06 17:20] LABS: ALT (SGPT) 36 U/L (8-55); AST (SGOT) 15 U/L (5-34); Albumin 3.1 g/dL (3.5-5.0); Alkaline Phosphatase 70 U/L (40-110); Anion Gap 15 mmol/L (10-20); BUN (Urea Nitrogen) 12 mg/dL (9.8-20.1); Bilirubin, Direct 0.2 mg/dL (0.1-0.3); Bilirubin, Total 0.6 mg/dL (0.2-1.2); Calc. Creatinine Clearance 128 mL/min (70-130); Calcium 8.6 mg/dL (7.8-10.44); Carbon Dioxide 26 mmol/L (22-29); Chloride 98 mmol/L (98-107); Glucose 160 mg/dL (70-105); Potassium 4.3 mmol/L (3.5-5.1); Protein, Total 6.4 g/dL (6.0-8.3); Sodium 135 mmol/L (136-145)
[2020-10-06] MEDS: Acetaminophen 325 MG TAB PO PRN (22:13)
[2020-10-07] MEDS: ALPRAZolam 0.25 MG TAB PO PRN ×3 (00:05→20:15)
[2020-10-07 05:58] LABS: Hemoglobin 10.8 g/dL (12.0-16.0); Mean Corpuscular HGB CONC 31.6 g/dL (32.0-36.0); Mean Corpuscular Hemoglobin 28.9 pg (27.0-31.0); Mean Corpuscular Volume 91.7 fL (78.0-98.0); Mean Platelet Volume 7.3 fL (7.4-10.4); Platelet Count 224 thou/uL (130-400); RBC Distribution Width 16.5 % (11.5-14.5); Red Blood Cell (RBC) Count 3.72 mill/uL (4.20-5.40)
[2020-10-07] MEDS: Budesonide 0.5 MG/2 ML NEB NEB SCH ×2 (07:12→19:07)
[2020-10-07] MEDS: Famotidine 20 MG TAB PO SCH ×2 (08:37→20:07)
[2020-10-07] MEDS: predniSONE 20 MG TAB PO SCH (08:38)
[2020-10-07] MEDS: Saccharomyces boulardii 250 MG CAP PO SCH (08:38)
[2020-10-07] MEDS: guaiFENesin ER 600 MG TAB PO SCH ×2 (08:39→20:07)
[2020-10-07] MEDS: Insulin Glargine 25 UNITS in Pre-Filled Syringe 1 EACH SC SCH (08:39)
[2020-10-07] MEDS: Linezolid 600 MG in Premix Bag 1 BAG IVPB SCH (08:39)
[2020-10-07] MEDS: Ascorbic Acid 500 mg Chewable Tablet PO SCH (08:40)
[2020-10-07] MEDS: Enoxaparin Sodium 40 MG/0.4 ML SYRINGE SC SCH (08:40)
[2020-10-07] MEDS: Metoprolol Tartrate 25 MG TAB PO SCH ×2 (08:47→20:07)
[2020-10-07] MEDS ORDERED: Iopamidol-370 76% 500 ML 1 ML ONE (10:44)
--- NOTE | 2020-10-07 13:08 | PRG ---
DATE OF SERVICE: 10/07/2020 SUBJECTIVE: Ms. Werner is out of the ICU now. Events have been reviewed. OBJECTIVE: VITAL SIGNS: She is afebrile. Heart rates in the 90s, respiratory rates in the teens, oximetry is 94% on room air, and blood pressure 109/55. LUNGS: Distant and clear. HEART: Regular rhythm. ABDOMEN: Soft. IMPRESSION: Pneumonia, possibly secondary to MRSA, which was isolated on 09/25. She is extremely weak and can barely lift her arms off the bed. She needs to be up in a chair for all her meals. We will start rehab. Her Zyvox could be switched to p.o. Her steroid doses can be decreased in the next few days. Job ID: [id number]
--- NOTE | 2020-10-07 14:43 | PDOC.HOSPP ---
- Subjective Encounter Date: 10/07/20 Encounter Time: 10:00 Subjective: F/u: respiratory failure The patient still cannot move or get out of bed. She is agreeable to go to [place] rehab. She says her shortness of breath has returned and is not sure if it is from steroids being weaned down. She does not want to go today - Objective Vital Signs & Weight: Vital Signs (12 hours) Temp Pulse Resp BP BP Pulse Ox 10/07/20 14:12 84 22 H 96 10/07/20 10:35 97.4 F L 93 18 109/55 L 94 L 10/07/20 07:36 96.3 F L 100 18 118/62 95 10/07/20 07:12 87 20 95 10/07/20 07:10 87 20 95 10/07/20 04:00 97.5 F L 85 18 113/60 100 Weight Admit Weight 165 lb Weight 176 lb 12.8 oz Most Recent Monitor Data Heart Rate from ECG 90 NIBP 108/64 NIBP BP-Mean 78 Respiration from ECG 19 SpO2 99 I&O: 10/06/20 10/07/20 10/08/20 06:59 06:59 06:59 Intake Total 1094 1490 Output Total 1200 750 Balance -106 740 Result Diagrams: 10/07/20 05:36 10/06/20 16:44 Additional Labs: Accuchecks 10/07/20 10/07/20 10/07/20 11:22 09:09 08:32 POC Glucose 139 H 105 H 54 L* 10/07/20 10/07/20 10/07/20 05:59 04:15 02:23 POC Glucose 86 66 L 99 10/07/20 10/06/20 10/06/20 01:30 19:34 15:56 POC Glucose 43 L* 199 H 129 H 10/05/20 10/05/20 10/05/20 20:58 16:35 09:14 POC Glucose 178 H 212 H 154 H 10/05/20 10/04/20 04:50 16:28 POC Glucose 147 H 190 H Hospitalist ROS - Review of Systems Constitutional: denies: fever, chills - Medication Medications: Active Medications Generic Name Dose Route Start Last Admin Trade Name Freq PRN Reason Stop Dose Admin Acetaminophen 650 mg 10/04/20 11:31 10/06/20 22:13 Acetaminophen 325 Mg Tab PO 650 mg Q6H PRN Administration Mild Pain (1-3) Albuterol/Ipratropium 3 ml 10/07/20 14:30 10/07/20 14:12 Ipratropium/Albuterol Sulfate 3 Ml Neb NEB 3 ml [id number] SAMUEL Administration Alprazolam 0.25 mg 10/03/20 11:48 10/07/20 11:28 Alprazolam 0.25 Mg Tab PO 0.25 mg TIDPRN PRN Administration Anxiety Ascorbic Acid 1,000 mg 10/05/20 09:00 10/07/20 08:40 Ascorbic Acid 500 Mg Chewable Tablet PO 1,000 mg DAILY SAMUEL Administration Budesonide 0.5 mg 10/04/20 18:30 10/07/20 07:12 Budesonide 0.5 Mg/2 Ml Neb NEB 0.5 mg BID-RT SAMUEL Administration Enoxaparin Sodium 40 mg 10/05/20 09:00 10/07/20 08:40 Enoxaparin Sodium 40 Mg/0.4 Ml Syringe SC 40 mg 0900 SAMUEL Administration Famotidine 20 mg 10/04/20 21:00 10/07/20 08:37 Famotidine 20 Mg Tab PO 20 mg BID SAMUEL Administration Guaifenesin 600 mg 10/04/20 21:00 10/07/20 08:39 Guaifenesin Er 600 Mg Tab PO 600 mg Q12HR SAMUEL Administration Insulin Human Regular 0 units 09/27/20 16:06 10/05/20 16:40 Insulin Regular 300 Units/3 Ml Vial SC 6 unit .AGGRESSIVE SLIDING PRN Administration Aggressive Correctional Scale Labetalol HCl 10 mg 09/27/20 19:40 10/01/20 16:27 Labetalol Hcl 100 Mg/20 Ml Vial SLOW IVP 10 mg Q4H PRN Administration SBP Greater Than 170 Metoprolol Tartrate 12.5 mg 10/07/20 09:00 10/07/20 08:47 Metoprolol Tartrate 25 Mg Tab PO 12.5 mg BID SAMUEL Administration Prednisone 40 mg 10/07/20 08:00 10/07/20 08:38 Prednisone 20 Mg Tab PO 40 mg QAM-WM SAMUEL Administration Saccharomyces Boulardii 250 mg 10/05/20 09:00 10/07/20 08:38 Saccharomyces Boulardii 250 Mg Cap PO 250 mg DAILY SAMUEL Administration Sodium Chloride 10 ml 09/24/20 09:00 10/07/20 08:39 Flush - Normal Saline 10 Ml Syringe IVF 10 ml Q12HR SAMUEL Administration - Exam General Appearance: NAD, awake alert General - other findings: obese Eye: PERRL, anicteric sclera ENT: normocephalic atraumatic, no oropharyngeal lesions Neck: no JVD Heart: RRR, no murmur, no gallops, no rubs Respiratory: CTAB, no wheezes, no rales, no ronchi Gastrointestinal: soft, non-tender, non-distended, normal bowel sounds Extremities: no cyanosis, no clubbing, no edema Skin: normal turgor, no lesions, no rashes Neurological: cranial nerve grossly intact, normal sensation to touch, no weakness, no focal deficits Hosp A/P - Plan Chest Xray 09/24: dense consolidation in the right lower lobe suggesting pneumonia/aspiration This is a 60 year old female who presented with respiratory distress requiring BIPAP, was intubated. She is now on 3L nasal cannula and is having difficulty moving. She is pending placement Acute hypoxic respiratory failure secondary to MRSA pneumonia + COPD exacerbation - chest X ray showed infiltrate right mid and lower lung. Blood cultures negative x 2. Tracheal culture grew MRSA . - she received 9 days of cefepime 09/24 to 10/03, however WBC continued to increase to up to 24. Linezolid started 09/30 with improvement in white blood cell count. Continue linezolid for few more days. Meropenem discontinued 10/06 - she has recurrent shortness of breath today, steroids switched to oral 40 mg today. Will give one extra dose of 20 mg IV - continue duonebs q4, Dr. Mckeon is following . Generalized weakness - possibly ICU myopathy - patient still has profound weakness and is unable to get up without assistance. - case management consulted for rehab placement Leukocytosis- resolved Anemia - Hb 10.9, stable, will monitor Hypertension - metoprolol dose reduced to 12.5 mg bid due to severe COPD
[2020-10-07] MEDS ORDERED: methylPREDNISolone Sod Succ 40 MG VIAL IVP SCH (15:00)
[2020-10-07] MEDS: Nystatin 100,000 Units/mL UDCUP SSW SCH ×2 (18:09→20:45)
--- NOTE | 2020-10-07 18:09 | CT ---
EXAM: CTA of the chest HISTORY: Shortness of breath COMPARISON: 09/23/2020 TECHNIQUE: Multiple contiguous axial images were obtained a CTA of the chest with contrast per pulmon jose a embolism protocol. 3-D oblique MIP reformats and direct coronal reformats were performed. FINDINGS: HEART: Normal in size without focal cardiac abnormality. Fairly extensive coronary artery calcificati ons. PULMONARY ARTERIES: Normal in caliber without filling defects to suggest pulmonary emboli. MEDIASTINUM: No hilar or mediastinal lymphadenopathy. LUNGS: Consolidation is again seen in the right lower lobe consistent with right lower lobe pneumonia . There is a 1.4 cm area of peripheral nodularity in the right middle lobe which was not seen on the prior examination and may represent an area of atelectasis or infiltrate. There is a stable 7 mm area of peripheral nodularity/opacity in the left lower lobe which may represent an infiltrate. PLEURAL SPACE: No pleural effusion or pneumothorax. CHEST WALL SOFT TISSUES: Unremarkable VISUALIZED OSSEOUS STRUCTURES: Degenerative changes in the spine. VISUALIZED SUBDIAPHRAGMATIC STRUCTURES: Unremarkable IMPRESSION: 1. Multifocal infiltrates, greatest in the right lower lobe. 2. Extensive coronary artery calcifications
--- NOTE | 2020-10-07 18:47 | EKG ---
Test Reason : Blood Pressure : / mmHG Vent. Rate : 094 BPM Atrial Rate : 094 BPM P-R Int : 142 ms QRS Dur : 064 ms QT Int : 350 ms P-R-T Axes : 086 042 071 degrees QTc Int : 437 ms Normal sinus rhythm Normal ECG When compared with ECG of 28-SEP-2020 13:28, (Unconfirmed) ST no longer depressed in Inferior leads ST no longer depressed in Anterolateral leads Nonspecific T wave abnormality no longer evident in Inferior leads Nonspecific T wave abnormality no longer evident in Anterior leads Confirmed by FABIANA LOZADA, DR. Jay ([id number]) on 10/07/2020 6:47:32 PM Referred By: [facility] Confirmed By:DR. Misty JUNG MD
[2020-10-07] MEDS: Linezolid 600 MG TAB PO SCH (20:07)
[2020-10-07] MEDS ORDERED: Insulin Regular 300 UNITS/3 ML VIAL SC PRN (22:38)
[2020-10-08] MEDS: Budesonide 0.5 MG/2 ML NEB NEB SCH (07:04)
[2020-10-08] MEDS: predniSONE 20 MG TAB PO SCH (07:52)
[2020-10-08] MEDS: Ascorbic Acid 500 mg Chewable Tablet PO SCH (07:52)
[2020-10-08] MEDS: guaiFENesin ER 600 MG TAB PO SCH (07:53)
[2020-10-08] MEDS: Famotidine 20 MG TAB PO SCH (07:53)
[2020-10-08] MEDS: Linezolid 600 MG TAB PO SCH (07:53)
[2020-10-08] MEDS: Enoxaparin Sodium 40 MG/0.4 ML SYRINGE SC SCH (07:53)
[2020-10-08] MEDS: Nystatin 500,000 UNITS/5 ML UDCUP SSW SCH ×2 (07:54→12:46)
[2020-10-08] MEDS: Saccharomyces boulardii 250 MG CAP PO SCH (07:54)
[2020-10-08] MEDS: ALPRAZolam 0.25 MG TAB PO PRN (07:57)
[2020-10-08 08:33] LABS: Hemoglobin 10.8 g/dL (12.0-16.0); Mean Corpuscular HGB CONC 31.4 g/dL (32.0-36.0); Mean Corpuscular Hemoglobin 28.7 pg (27.0-31.0); Mean Corpuscular Volume 91.5 fL (78.0-98.0); Mean Platelet Volume 7.1 fL (7.4-10.4); Platelet Count 255 thou/uL (130-400); RBC Distribution Width 16.4 % (11.5-14.5); Red Blood Cell (RBC) Count 3.75 mill/uL (4.20-5.40)
[2020-10-08 08:48] LABS: Anion Gap 15 mmol/L (10-20); BUN (Urea Nitrogen) 8 mg/dL (9.8-20.1); Calc. Creatinine Clearance 125 mL/min (70-130); Calcium 8.7 mg/dL (7.8-10.44); Carbon Dioxide 25 mmol/L (22-29); Chloride 100 mmol/L (98-107); Glucose 84 mg/dL (70-105); Potassium 3.9 mmol/L (3.5-5.1); Sodium 136 mmol/L (136-145)
[2020-10-08] MEDS: Metoprolol Tartrate 25 MG TAB PO SCH (08:57)
[2020-10-08 11:44] VITALS: BP 109/51; TEMP 97.5
--- NOTE | 2020-10-08 15:11 | PRG ---
DATE OF SERVICE: 10/08/2020 SUBJECTIVE: Batsheva Werner is doing well. She is still quite weak. She will need a nurse or two to assist her to get up into a chair. Her hemodynamics have been stable. OBJECTIVE: LUNGS: She has distant breath sounds, but is not wheezing. HEART: Regular rhythm. ABDOMEN: Soft. IMPRESSION: Status post recent intubation for chronic obstructive pulmonary disease exacerbation. PLAN: Rehab. Her prednisone can be tapered to 20 mg a day. Job ID: [id number]
--- NOTE | 2020-10-08 17:31 | PDOC.DS.DS ---
Provider - Provider Date of Admission: 09/24/20 00:07 Date of Discharge: 10/08/20 Admitting Provider: Pavan Delgado MD Consultations: Pulmonary (Dr. Mckeon), Other (Palliative care) Primary Care Physician: Suzie Villarreal MD Course - Hospital Course Hospital Course: Discharge Diagnoses: 1. Acute hypoxic respiratory failure secondary to MRSA pneumonia + COPD exacerbation 2. Generalized weakness likely from steroid vs ICU myopathy 3. Leukocytosis 4. Sinus tachycardia 5. Possible CAD 6. Hypertension 7. Anemia Brief HPI: This is a 60 year old female with past medical history of hypertension, COPD who presented to the ER with shortness of breath and was only able to speak in 2-3 word sentences. She uses BIPAP at home. The patient was using accessory muscles of respiration so was intubated in the ER. She was given empiric vanc, cefepime and steroids and admitted for further workup. Hospital Course: 1. Acute hypoxic respiratory failure secondary to MRSA pneumonia + COPD exacerbation : initial chest X ray showed infiltrate in the right mid and lower lung. Blood cultures were negative x 2. Troponin was negative times three. She received 9 days of cefepime from 09/24 to 10/03, but her WBC increased up to 24. Tracheal culture grew MRSA so she was switched to IV linezolid and meropenem on 09/30. She received 7 days of linezolid while in the hospital and was switched over to oral linezolid, which she will continue for another 6 more days on discharge. Meropenem was discontinued on 10/06. The patient will resume her home duonebs. She received IV steroids in the hospital, and her steroids were tapered down to 20 mg on the day of discharge for an additional 3 more days. She was weaned down to her baseline oxygen requirement of 3 L at rest. She should have a repeat chest x-ray in 6 weeks 2.Generalized weakness: After extubation the patient had profound weakness, and was unable to get up without assistance. Physical therapy recommended rehab. The patient will be discharged to [facility] today. Her steroids have been tapered in the event that this may be steroid myopathy. . 3. Sinus tachycardia: Her heart rate increased from 100-120 while in the h ospital. She had her metoprolol reduced to 12.5 mg p.o. twice daily due to severe COPD symptoms. She will also be prescribed diltiazem 15 mg p.o. every 6 hours prn that she can take if her heart rate is more than 120 and her blood pressure is more than 100. CTA of her chest on 10/07 ruled out a PE. She was advised to consider seeing a wrapper operator once she is able to ambulate for consideration of a stress test since she has extensive calcifications of her coronary arteries on CT chest. I did not think a nuclear stress test would benefit her given her severe COPD. Pertinent Studies: Chest x ray 09/24: dense consolidation in the right lower lobe suggesting pneumonia/aspiration Abdominal X ray 09/29: no significant stool retention CTA chest 10/07: extensive CAD, multifocal infiltrates in the right lower lobe. Resuscitation Status: 10/04/20 11:49 Resuscitation Status Routine Resuscitation Status: FULL: Full Resuscitation Discussed with: Patient at the bedside Additional comments: We reviewed being reintubated as well and she agreed to re intubation again and being on life support. She is alert and oriented x 3. - Labs Lab Results: 10/08/20 08:04 10/08/20 08:04 Abnormal Lab Results - Last 48 hrs 10/07/20 05:36: RBC 3.72 L, Hgb 10.8 L, Hct 34.1 L, MCHC 31.6 L, RDW 16.5 H, MPV 7.3 L 10/08/20 08:04: BUN 8 L, Creatinine 0.52 L 10/08/20 08:04: RBC 3.75 L, Hgb 10.8 L, Hct 34.4 L, MCHC 31.4 L, RDW 16.4 H, MPV 7.1 L Microbiology - Entire Visit 09/30/20 17:03 Venous blood - Right Arm Blood Culture - Final NO GROWTH IN 5 DAYS 09/30/20 16:51 Venous blood - Left Arm Blood Culture - Final NO GROWTH IN 5 DAYS 09/23/20 22:15 Venous blood - Right Arm Blood Culture - Final NO GROWTH IN 5 DAYS 09/23/20 22:15 Venous blood - Left Hand Blood Culture - Final NO GROWTH IN 5 DAYS 09/25/20 00:10 Tracheal Respiratory Culture - Final Methicillin resistant S.aureus 09/23/20 22:35 Urine luna catheter Urine Culture - Final NO GROWTH AT 36 HOURS - Physical Exam Vitals: Vital Signs (12 hours) Temp Pulse Pulse Resp BP BP Pulse Ox 10/08/20 11:43 97.5 F L 74 18 109/51 L 96 10/08/20 10:25 80 20 94 L 10/08/20 09:26 109 H 126/63 10/08/20 09:00 95 10/08/20 08:15 97.9 F 98 18 116/58 L 73 L 10/08/20 07:04 92 18 98 Pulse Ox 10/08/20 11:43 10/08/20 10:25 10/08/20 09:26 93 L 10/08/20 09:00 10/08/20 08:15 10/08/20 07:04 Weight Admit Weight 165 lb Weight 150 lb 7 oz Most Recent Monitor Data Heart Rate from ECG 90 NIBP 108/64 NIBP BP-Mean 78 Respiration from ECG 19 SpO2 99 Physical Exam: The patient was seen and examined on the day of discharge. General: patient is overweight. She is on 3.5L of oxygen CVS: RRR, no murmurs, rubs, gallops Lungs: CTAB Abdomen: +BS, soft, nontender, nondistended Extremities: no edema Neuro: patient very weak and can barely move her arms Problem - Discharge Plan Plan of Treatment: Repeat chest X ray in 6 weeks. Consider outpatient cardiac workup and stress testing for sinus tachycardia when you are stronger. Plan - Discharge Medications Prescriptions: Linezolid [Zyvox] 600 mg PO Q12HR #12 tab Diltiazem HCl [Cardizem] 15 mg PO Q6H PRN #96 tab PRN Reason: HR > 110 (AND SBP > 100) Metoprolol Tartrate [Lopressor] 12.5 mg PO BID #30 tab predniSONE 20 mg PO QAM-WM #3 tab Home Medications: Medication Instructions Recorded Confirmed Type Fluticasone/Salmeterol [Advair HFA 2 inh IH BID 06/25/17 10/08/20 History 115/21 Inhaler] Ipratropium/Albuterol Sulfate 3 ml NEB QID PRN 12/23/18 10/08/20 History [DuoNeb] metFORMIN [Glucophage] 500 mg PO BID PRN 07/25/20 10/08/20 History Sennosides [Senna Laxative] 8.6 mg PO DAILY PRN 07/26/20 10/08/20 History ALPRAZolam [Xanax] 0.25 mg PO BID 07/27/20 10/08/20 History Acetaminophen [Tylenol Regular 650 mg PO Q4H PRN tab 09/06/20 10/08/20 Rx Strength] Albuterol Sulfate [Proventil Hfa] 2 puff INH S2OC-BD aer 09/06/20 10/08/20 Rx Ascorbic Acid [Vitamin C] 1,000 mg PO DAILY tab 09/06/20 10/08/20 Rx Benzonatate [Tessalon] 100 mg PO Q6H PRN cap 09/06/20 10/08/20 Rx Enoxaparin Sodium [Lovenox] 40 mg SC 0900,2100 syringe 09/06/20 10/08/20 Rx Famotidine [Pepcid] 20 mg PO BID #60 tab 09/06/20 10/08/20 Rx HumaLOG [HumaLOG Vial] 1 unit SC .BEDTIME SLIDING SC PRN 09/06/20 10/08/20 Rx vial HumaLOG [HumaLOG Vial] 6 units SC .MODERATE SLIDING SC 09/06/20 10/08/20 Rx PRN vial HumaLOG [HumaLOG Vial] 10 units SC TID-WM vial 09/06/20 10/08/20 Rx guaiFENesin ER [Mucinex] 600 mg PO Q12HR tab 09/06/20 10/08/20 Rx Diltiazem HCl [Cardizem] 15 mg PO Q6H PRN #96 tab 10/08/20 10/08/20 Rx Linezolid [Zyvox] 600 mg PO Q12HR #12 tab 10/08/20 10/08/20 Rx Metoprolol Tartrate [Lopressor] 12.5 mg PO BID #30 tab 10/08/20 10/08/20 Rx predniSONE 20 mg PO QAM-WM #3 tab 10/08/20 10/08/20 Rx Allergies: Sulfa (Sulfonamide Antibiotics) Allergy (Severe, Verified 08/22/20 23:31) Anaphylaxis - Discharge Instructions Activity:: Activity as Tolerated Nourishment:: Diabetic Diet - Follow up Plan Referrals: Suzie Villarreal MD [Primary Care Provider] - Disposition: SNF FACILITY Quality - Care Measures CORE MEASURES:: N/A
--- NOTE | 2020-10-09 19:07 | PQF ---
CLINICAL DOCUMENTATION CLARIFICATION FORM: Dear : Ginna Roberts Date / Time: 10/09/2020 1907 Please exercise your independent, professional judgment in responding to the clarification form. Clinical indicators are provided on the bottom of this form for your review Please check appropriate box(es): [ ] Sepsis due to MRSA Pneumonia [X ] Severe sepsis due to MRSA Pneumonia with Acute Respiratory Failure [ ] Localized infection without sepsis [ ] Other diagnosis [ ] Unable to determine Physician Signature: Date/Time: For continuity of documentation, please document condition throughout progress notes and discharge summary. Thank You. To be completed by CDI/Coding staff for physician review: Present Clinical Indicators - Signs / Symptoms / Labs Results and Location in Medical Record [X] WBC 24.7, Plt count 246, Neutrophils 88, Band 8, Lactic acid 1.1 Laboratory 09/23 [X] Blood culture: No growth at 5 days Microbiology 09/23 [X] Respiratory Culture: MRSA Microbiology 09/25 [X] BP 143/89, Pulse 106, Resp 27, Temp 97.9 Vital signs 09/23 [X] SIRS scoring: Yes, pt did meet criteria ED notes p2 09/23 [X] Acute respiratory failure, Pneumonia, Sepsis ED notes p13 09/23 [X] Transferred due to worsening of Respiratory status H&P p1 09/24 Dr Chacho Johnston [X] Pneumonia/healthcare associated H&P p3 09/24 Dr Delgado [X] Pt also had diagnosis of Sepsis syndrome HPN p1 12 D rLoyd [X] Acute respiratory failure due to MRSA Pneumonia and COPD exacerbation DS p1 10/08 Dr Roberts Present Risk Factors Results and Location in Medical Record [X] Hx of Covid Pneumonia H&P p1 09/24 Dr Delgado [X] COPD H&P p1 09/24 Dr Delgado [X] CHF H&P p3 09/24 Dr Delgado [X] CAD H&P p3 09/24 Dr Delgado [X] Former smoker H&P p3 09/24 Dr Delgado [X] MRSA Pneumonia DS p1 10/08 Dr Roberts Present Treatments Results and Location in Medical Record [X] Mechanical Ventilator Respiratory panel 09/23 [X] IV Cefepime 2 gm MAR 09/23 [X] IV Solu-medrol 40 mg MAR 12/7 [X] IV Vancomycin 1 gm DEC 27 [X] Sepsis protocol ED notes p2 09/23 [X] Pulmo consult Consult Dr Mckeon 09/24 [facility] [employer] Signature: Mercedes Crockett Phone #: [phone] Date/Time: 10/09/2020 3852 This is a permanent part of the Medical Record [facility]
--- NOTE | 2020-10-18 12:12 | EKG ---
Test Reason : RHYTHM CHANGE Blood Pressure : / mmHG Vent. Rate : 099 BPM Atrial Rate : 099 BPM P-R Int : 140 ms QRS Dur : 066 ms QT Int : 316 ms P-R-T Axes : 080 047 070 degrees QTc Int : 405 ms Normal sinus rhythm Normal ECG When compared with ECG of 23-SEP-2020 22:28, (Unconfirmed) No significant change was found Confirmed by DR. Mir METZGER ([id number]) on 10/18/2020 12:11:38 PM Referred By: FAY DOWLING Confirmed By:DR. Mir METZGER
--- NOTE | 2020-10-18 12:12 | EKG ---
Test Reason : RHYTHM CHANGE Blood Pressure : / mmHG Vent. Rate : 136 BPM Atrial Rate : 136 BPM P-R Int : 144 ms QRS Dur : 066 ms QT Int : 250 ms P-R-T Axes : 083 060 234 degrees QTc Int : [address] depression, consider subendocardial injury Nonspecific T wave abnormality Abnormal ECG Confirmed by DR. Mir METZGER ([id number]) on 10/18/2020 12:12:02 PM Referred By: FAY DOWLING Confirmed By:DR. Mir METZGER
== END 2020-10-08 14:25 | disposition swing bed (61) | DRG 870 ==
LOC: ERS 21:55 → CCU 09-24 00:07 → T4-B 10-05 20:03
PROVIDERS: ADMIT Internal Medicine; ATTEND Internal Medicine
PROC: 5A1955Z Respiratory Ventilation, Greater than 96 Consecutive Hours (ICD-10-PCS; principal; 2020-09-23)
PROC: 0BH17EZ Insertion of Endotracheal Airway into Trachea, Via Natural or Artificial Opening (ICD-10-PCS; 2020-09-23)
PROC: 8E0ZXY6 Isolation (ICD-10-PCS; 2020-09-24)
PROC: 0DH67UZ Insertion of Feeding Device into Stomach, Via Natural or Artificial Opening (ICD-10-PCS; 2020-10-01)
DX: A41.02 Sepsis due to Methicillin resistant Staphylococcus aureus (principal); J15.212 Pneumonia due to Methicillin resistant Staphylococcus aureus; R53.2 Functional quadriplegia; J96.21 Acute and chronic respiratory failure with hypoxia; J85.0 Gangrene and necrosis of lung; J44.1 Chronic obstructive pulmonary disease with (acute) exacerbation; J44.0 Chronic obstructive pulmonary disease with (acute) lower respiratory infection; I42.9 Cardiomyopathy, unspecified; G72.81 Critical illness myopathy; R65.20 Severe sepsis without septic shock; Z51.5 Encounter for palliative care; T38.0X5A Adverse effect of glucocorticoids and synthetic analogues, initial encounter; I25.10 Atherosclerotic heart disease of native coronary artery without angina pectoris; D64.9 Anemia, unspecified; F32.9 Major depressive disorder, single episode, unspecified; I50.9 Heart failure, unspecified; Y95 Nosocomial condition; E87.5 Hyperkalemia; I11.0 Hypertensive heart disease with heart failure; K59.00 Constipation, unspecified; E11.65 Type 2 diabetes mellitus with hyperglycemia; E66.01 Morbid (severe) obesity due to excess calories; Z93.3 Colostomy status; Z68.25 Body mass index [BMI] 25.0-25.9, adult; Z78.1 Physical restraint status; Z87.891 Personal history of nicotine dependence; Z90.49 Acquired absence of other specified parts of digestive tract; Z98.51 Tubal ligation status; Z98.1 Arthrodesis status; Z86.19 Personal history of other infectious and parasitic diseases; Z88.2 Allergy status to sulfonamides; Z79.899 Other long term (current) drug therapy; Z79.4 Long term (current) use of insulin
CPT/HCPCS: 31500; 36415; 36416; 36600; 71045; 71275; 74018; 80048; 80053; 80076; 80202; 81003; 81015; 82805; 83605; 84484; 85007; 85027; 87040; 87070; 87077; 87086; 87186; 87205; 93005; 93010; 94003; 94640; 94644; 96365; 96366; 96367; 96368; 96375; 99292; J0692; J1644; J1650; J1815; J2020; J2060; J2185; J2270; J2704; J2920; J2930; J3010; J3370; J3475; J3490; J7050; J7512; J7620; J7626; Q9967; S0028

== ENCOUNTER 2021-02-03 10:23 | Inpatient (IN) | payer MEDICARE ==
[2021-02-03 11:54] LABS: Bilirubin Negative (Negative); Blood, Urine Negative (Negative); Clarity Clear (Clear); Glucose, Urine (Dipstick) Normal (Negative); Ketone, Urine Negative (Negative); Leukocyte Negative Leu/uL (Negative); Nitrite Negative (Negative); Protein, Urine (Dipstick) Negative (Neg-Trace); Specific Gravity, Urine 1.012 (1.002-1.036); Urobilinogen Normal mg/dL (Less than 2)
[2021-02-03 12:08] LABS: Amphetamine Not Detected (NotDetected); Barbiturates Screen Not Detected (NotDetected); Benzodiazepine Screen Detected (NotDetected); Cocaine Metabolite Screen Not Detected (NotDetected); Medtox Control Line Valid? VALID (VALID); Medtox Reader # READER 1; Methadone Not Detected (NotDetected); Methamphetamine Not Detected (NotDetected); Opiate Screen Not Detected (NotDetected); Oxycodone Screen Not Detected (NotDetected); Phencyclidine (PCP) Not Detected (NotDetected); THC/Cannabinoid Screen Not Detected (NotDetected); Tricyclic Screen Not Detected (NotDetected)
[2021-02-03 12:22] LABS: #Basophils 0.1 thou/uL (0.0-0.2); #Eosinphils 0.1 thou/uL (0.0-0.7); #Lymphocytes 4.4 thou/uL (1.20-3.40); #Monocytes 2.1 thou/uL (0.11-0.59); #Neutrophils 11.2 thou/uL (1.40-6.50); %Basophils 0.7 % (0.0-1.0); %Eosinophils 0.5 % (0.0-10.0); %Lymphocytes 24.7 % (21.0-51.0); %Monocytes 11.6 % (0.0-10.0); %Neutrophils 62.6 % (42.0-75.0); Hemoglobin 11.4 g/dL (12.0-16.0); Mean Corpuscular HGB CONC 30.5 g/dL (32.0-36.0); Mean Corpuscular Hemoglobin 28.8 pg (27.0-31.0); Mean Corpuscular Volume 94.5 fL (78.0-98.0); Mean Platelet Volume 8.2 fL (7.4-10.4); Platelet Count 235 thou/uL (130-400); RBC Distribution Width 13.9 % (11.5-14.5); Red Blood Cell (RBC) Count 3.95 mill/uL (4.20-5.40); White Blood Cell (WBC) Count 17.8 thou/uL (4.8-10.8)
[2021-02-03 12:44] LABS: ALT (SGPT) 16 U/L (8-55); AST (SGOT) 58 U/L (5-34); Albumin 2.1 g/dL (3.5-5.0); Alkaline Phosphatase 143 U/L (40-110); Anion Gap 8 mmol/L (10-20); BUN (Urea Nitrogen) 5 mg/dL (9.8-20.1); Bilirubin, Total 2.1 mg/dL (0.2-1.2); CK (CPK) 37 U/L (29-168); Calc. Creatinine Clearance 0 mL/min (70-130); Calcium 7.4 mg/dL (7.8-10.44); Carbon Dioxide 24 mmol/L (22-29); Chloride 104 mmol/L (98-107); Globulin 4.6 g/dL (2.4-3.5); Glucose 113 mg/dL (70-105); Lipase 11 U/L (8-78); Potassium 3.4 mmol/L (3.5-5.1); Protein, Total 6.7 g/dL (6.0-8.3); Sodium 133 mmol/L (136-145)
[2021-02-03 12:45] LABS: Acetaminophen Less than 6.0 mcg/mL (10.0-30.0); Alcohol Less than 10 mg/dL (Less than 10); Salicylate Less than 8.0 mg/dL (15.0-30.0)
[2021-02-03] MEDS ORDERED: Iopamidol-370 76% 500 ML 1 ML ONE (13:06)
[2021-02-03] MEDS ORDERED: Cefepime 2 GM VIAL ONE (13:36)
[2021-02-03] MEDS ORDERED: Vancomycin 1 GM/200 ML BAG ONE (14:14)
[2021-02-03] MEDS ORDERED: Acetaminophen 500 MG TAB ONE (14:21)
[2021-02-03] MEDS ORDERED: Norepinephrine 8 MG/0.9% NS 250 ML ONE (14:36)
[2021-02-03] MEDS ORDERED: Lidocaine 1% PF 5 ML VIAL ONE (14:42)
[2021-02-03] MEDS ORDERED: metroNIDAZOLE 500 MG/100 ML BAG ONE (15:17)
[2021-02-03] MEDS ORDERED: Norepinephrine 8 MG/0.9% NS 250 ML IVPB SCH (16:15)
[2021-02-03 16:22] LABS: SARS-CoV-2 NAA Rapid Test Not Detected (NotDetected)
[2021-02-03] MEDS ORDERED: Bisacodyl 10 MG SUPP PR PRN (16:26)
[2021-02-03] MEDS ORDERED: Calcium Carbonate 500 MG ChewTAB PO PRN (16:26)
[2021-02-03] MEDS ORDERED: Senokot S 8.6-50 MG TAB PO PRN (16:26)
[2021-02-03] MEDS ORDERED: Guaifenesin DM 100-10/5 ML UDCUP PO PRN (16:26)
[2021-02-03] MEDS ORDERED: Benzonatate 100 MG CAP PO PRN (16:29)
[2021-02-03] MEDS: Sodium Chloride 0.9% 1,000 ML IV SCH (17:19)
[2021-02-03] MEDS ORDERED: Non-Formulary Item 1 EACH (Albuterol Sulfate 200 PUFF Aer) INH SCH (18:30)
[2021-02-03] MEDS: Hydrocortisone Sod Succ/PF 100 mg/2 ml Vial IVP SCH (18:39)
[2021-02-03] MEDS: metroNIDAZOLE 500 MG in Premix Bag 1 BAG IVPB SCH (18:39)
[2021-02-03] MEDS: Mometasone 200 MCG/Formoterol 5 MCG 120 PUFF INHALER INH SCH (18:40)
[2021-02-03 18:45] LABS: Lactic Acid 1.5 mmol/L (0.5-2.2)
[2021-02-03] MEDS: HYDROcodone/Acetaminophen 5/325 mg Tablet PO PRN (20:11)
[2021-02-04] MEDS: Hydrocortisone Sod Succ/PF 100 mg/2 ml Vial IVP SCH ×5 (00:18→23:12)
[2021-02-04] MEDS: metroNIDAZOLE 500 MG in Premix Bag 1 BAG IVPB SCH ×5 (00:19→23:12)
[2021-02-04] MEDS: Cefepime 1 GM in Sodium Chloride 0.9% 100 ML IVPB SCH ×2 (00:19→12:57)
[2021-02-04] MEDS: Sodium Chloride 0.9% 1,000 ML IV SCH ×3 (02:14→17:45)
[2021-02-04] MEDS: VANCOMYCIN 1.25 GM/250 ML BAG 1.25 GM in Premix Bag 1 BAG IVPB SCH ×2 (02:15→14:30)
[2021-02-04 04:39] LABS: #Basophils 0.1 thou/uL (0.0-0.2); #Lymphocytes 0.4 thou/uL (1.20-3.40); #Monocytes 0.2 thou/uL (0.11-0.59); #Neutrophils 12.2 thou/uL (1.40-6.50); %Eosinophils 0.1 % (0.0-10.0); %Lymphocytes 3.3 % (21.0-51.0); %Monocytes 1.7 % (0.0-10.0); Hemoglobin 9.9 g/dL (12.0-16.0); Mean Corpuscular HGB CONC 30.3 g/dL (32.0-36.0); Mean Corpuscular Hemoglobin 28.8 pg (27.0-31.0); Mean Platelet Volume 8.4 fL (7.4-10.4); Platelet Count 228 thou/uL (130-400); RBC Distribution Width 13.9 % (11.5-14.5); Red Blood Cell (RBC) Count 3.43 mill/uL (4.20-5.40); White Blood Cell (WBC) Count 12.9 thou/uL (4.8-10.8)
[2021-02-04 05:05] LABS: Anion Gap 13 mmol/L (10-20); BUN (Urea Nitrogen) 5 mg/dL (9.8-20.1); Calc. Creatinine Clearance 89 mL/min (70-130); Calcium 7.3 mg/dL (7.8-10.44); Carbon Dioxide 17 mmol/L (22-29); Chloride 108 mmol/L (98-107); Glucose 161 mg/dL (70-105); Potassium 3.3 mmol/L (3.5-5.1); Sodium 135 mmol/L (136-145)
[2021-02-04] MEDS: Mometasone 200 MCG/Formoterol 5 MCG 120 PUFF INHALER INH SCH ×2 (07:22→19:39)
[2021-02-04] MEDS: Acetaminophen 325 MG TAB PO PRN (09:13)
[2021-02-04] MEDS: Enoxaparin Sodium 40 MG/0.4 ML SYRINGE SC SCH (09:15)
[2021-02-04] MEDS: Ascorbic Acid 500 mg Chewable Tablet PO SCH (09:15)
[2021-02-04] MEDS: Pantoprazole 40 MG VIAL IVP SCH (09:15)
[2021-02-04] MEDS ORDERED: Potassium Chloride 20 MEQ TAB PO SCH (11:45)
[2021-02-04] MEDS: ALPRAZolam 0.25 MG TAB PO PRN (14:16)
[2021-02-04] MEDS: HYDROcodone/Acetaminophen 5/325 mg Tablet PO PRN (22:01)
[2021-02-04] MEDS: Ondansetron PF 4 MG/2 ML Vial IVP PRN (23:12)
[2021-02-05] MEDS: Cefepime 1 GM in Sodium Chloride 0.9% 100 ML IVPB SCH ×2 (00:22→12:32)
[2021-02-05] MEDS ORDERED: Potassium Chloride 40 MEQ in Premix Bag 1 BAG IVPB SCH (02:55)
[2021-02-05] MEDS ORDERED: Potassium Chloride 20 MEQ TAB PO SCH (02:55)
[2021-02-05] MEDS ORDERED: Magnesium 2 GM/50 ML BAG (IN WATER) ONE (03:17)
[2021-02-05] MEDS ORDERED: Potassium Chloride 40 MEQ/100 ML PREMIX BAG ONE (03:18)
[2021-02-05] MEDS ORDERED: Potassium Chloride 20 MEQ TAB ONE (03:19)
[2021-02-05 05:51] LABS: Lymphocytes 1 % (21-51); MDiff Complete? YES; Mean Corpuscular HGB CONC 30.8 g/dL (32.0-36.0); Mean Corpuscular Hemoglobin 29.4 pg (27.0-31.0); Mean Corpuscular Volume 95.3 fL (78.0-98.0); Mean Platelet Volume 7.8 fL (7.4-10.4); Metamyelocyte 1 % (0-0); Monocytes 3 % (0-10); Neutrophil 95 % (42-75); Platelet Count 266 thou/uL (130-400); Platelet Morphology Comment Appears Adequate; RBC Distribution Width 14.1 % (11.5-14.5); White Blood Cell (WBC) Count 20.5 thou/uL (4.8-10.8)
[2021-02-05 05:51] LABS: Anion Gap 10 mmol/L (10-20); BUN (Urea Nitrogen) 6 mg/dL (9.8-20.1); Calc. Creatinine Clearance 92 mL/min (70-130); Calcium 7.5 mg/dL (7.8-10.44); Carbon Dioxide 16 mmol/L (22-29); Chloride 111 mmol/L (98-107); Glucose 239 mg/dL (70-105); Potassium 2.7 mmol/L (3.5-5.1); Sodium 134 mmol/L (136-145)
[2021-02-05] MEDS: Hydrocortisone Sod Succ/PF 100 mg/2 ml Vial IVP SCH ×4 (06:00→23:38)
[2021-02-05] MEDS: VANCOMYCIN 1.25 GM/250 ML BAG 1.25 GM in Premix Bag 1 BAG IVPB SCH (06:00)
[2021-02-05] MEDS: metroNIDAZOLE 500 MG in Premix Bag 1 BAG IVPB SCH ×4 (06:00→23:38)
[2021-02-05] MEDS: Magnesium 2 GM/50 ML 2 GM in Premix Bag 1 BAG IVPB SCH (06:00)
[2021-02-05] MEDS: Mometasone 200 MCG/Formoterol 5 MCG 120 PUFF INHALER INH SCH ×2 (07:15→18:44)
[2021-02-05] MEDS ORDERED: Electrolyte Replacement Protocol FS PRN (08:30)
[2021-02-05] MEDS: Pantoprazole 40 MG VIAL IVP SCH (09:11)
[2021-02-05] MEDS: Ascorbic Acid 500 mg Chewable Tablet PO SCH ×2 (09:11)
[2021-02-05] MEDS: Sodium Chloride 0.9% 1,000 ML IV SCH (09:12)
[2021-02-05] MEDS: Enoxaparin Sodium 40 MG/0.4 ML SYRINGE SC SCH (09:12)
[2021-02-05] MEDS ORDERED: Sodium Chloride 0.45% 1,000 ML IV SCH ×2 (10:45→16:45)
[2021-02-05] MEDS: Ondansetron PF 4 MG/2 ML Vial IVP PRN ×2 (11:48→21:49)
[2021-02-05] MEDS: ALPRAZolam 0.25 MG TAB PO PRN (13:09)
[2021-02-05 13:42] LABS: Anion Gap 11 mmol/L (10-20); BUN (Urea Nitrogen) 6 mg/dL (9.8-20.1); Calc. Creatinine Clearance 95 mL/min (70-130); Calcium 7.8 mg/dL (7.8-10.44); Carbon Dioxide 16 mmol/L (22-29); Chloride 112 mmol/L (98-107); Glucose 158 mg/dL (70-105); Magnesium 2.5 mg/dL (1.6-2.6); Potassium 3.7 mmol/L (3.5-5.1); Sodium 135 mmol/L (136-145)
[2021-02-05 14:50] LABS: Vancomycin, Trough 35.1 ug/mL
[2021-02-05 16:53] LABS: ALT (SGPT) 14 U/L (8-55); AST (SGOT) 33 U/L (5-34); Alkaline Phosphatase 105 U/L (40-110); Bilirubin, Direct 0.8 mg/dL (0.1-0.3); Protein, Total 6.8 g/dL (6.0-8.3)
[2021-02-05] MEDS: Sodium Chloride 0.45% 1,000 ML IV SCH (17:30)
[2021-02-05] MEDS: HYDROcodone/Acetaminophen 5/325 mg Tablet PO PRN (21:48)
[2021-02-06] MEDS: Cefepime 1 GM in Sodium Chloride 0.9% 100 ML IVPB SCH ×2 (01:34→13:39)
[2021-02-06] MEDS: Sodium Chloride 0.45% 1,000 ML IV SCH ×2 (01:35→09:58)
[2021-02-06 04:48] LABS: #Lymphocytes 0.5 thou/uL (1.20-3.40); #Monocytes 0.8 thou/uL (0.11-0.59); #Neutrophils 17.1 thou/uL (1.40-6.50); %Eosinophils 0.1 % (0.0-10.0); %Lymphocytes 2.9 % (21.0-51.0); %Monocytes 4.5 % (0.0-10.0); %Neutrophils 92.5 % (42.0-75.0); Hemoglobin 9.4 g/dL (12.0-16.0); Mean Corpuscular HGB CONC 31.4 g/dL (32.0-36.0); Mean Corpuscular Hemoglobin 29.8 pg (27.0-31.0); Mean Corpuscular Volume 94.9 fL (78.0-98.0); Mean Platelet Volume 7.9 fL (7.4-10.4); Platelet Count 234 thou/uL (130-400); RBC Distribution Width 14.6 % (11.5-14.5); Red Blood Cell (RBC) Count 3.15 mill/uL (4.20-5.40); White Blood Cell (WBC) Count 18.5 thou/uL (4.8-10.8)
[2021-02-06 04:55] LABS: INR-International Normal Ratio 1.6; Prothrombin Time 19.7 sec (12.0-14.7)
[2021-02-06 04:56] LABS: Hemoglobin A1c 4.8 % (4.0-6.0)
[2021-02-06 05:11] LABS: Phosphorus 2.3 mg/dL (2.3-4.7)
[2021-02-06 05:17] LABS: ALT (SGPT) 12 U/L (8-55); AST (SGOT) 25 U/L (5-34); Albumin 1.8 g/dL (3.5-5.0); Alkaline Phosphatase 92 U/L (40-110); Anion Gap 10 mmol/L (10-20); BUN (Urea Nitrogen) 9 mg/dL (9.8-20.1); Calc. Creatinine Clearance 91 mL/min (70-130); Calcium 7.5 mg/dL (7.8-10.44); Carbon Dioxide 16 mmol/L (22-29); Chloride 112 mmol/L (98-107); Globulin 4.1 g/dL (2.4-3.5); Glucose 130 mg/dL (70-105); Iron Binding Capacity, Total 146 mcg/dL (265-497); Magnesium 2.3 mg/dL (1.6-2.6); Potassium 3.7 mmol/L (3.5-5.1); Protein, Total 5.9 g/dL (6.0-8.3); Sodium 134 mmol/L (136-145)
[2021-02-06 05:32] LABS: Ferritin 248.19 ng/mL (10-291)
[2021-02-06 05:47] LABS: Hep A IgM AB Non-Reactive (NonReactive); Hep A IgM S/CO 0.18 S/CO (0-0.79); Hep B Surf Ag NonReactive S/CO (NonReactive)
[2021-02-06 05:48] LABS: HBSAg Index 0.25 S/CO (0-0.99); Hep C IgG Ab NonReactive (NonReactive); Hep C Index 0.25 S/CO (0-0.79); Hepatitis B Core IgM Abs NonReactive (NonReactive)
[2021-02-06] MEDS: Hydrocortisone Sod Succ/PF 100 mg/2 ml Vial IVP SCH ×4 (05:56→23:36)
[2021-02-06] MEDS: metroNIDAZOLE 500 MG in Premix Bag 1 BAG IVPB SCH ×4 (05:56→23:36)
[2021-02-06] MEDS: Mometasone 200 MCG/Formoterol 5 MCG 120 PUFF INHALER INH SCH ×2 (07:23→18:36)
[2021-02-06] MEDS: ALPRAZolam 0.25 MG TAB PO PRN ×2 (09:52→22:37)
[2021-02-06] MEDS: Pantoprazole 40 MG VIAL IVP SCH (09:52)
[2021-02-06] MEDS: Enoxaparin Sodium 40 MG/0.4 ML SYRINGE SC SCH (09:52)
[2021-02-06] MEDS: Ascorbic Acid 500 mg Chewable Tablet PO SCH (09:53)
[2021-02-06] MEDS ORDERED: Metoprolol Tartrate 25 MG TAB PO SCH (14:30)
[2021-02-06] MEDS: Albumin 25% 25 GM/100 ML BOT IVPB SCH ×2 (17:08→23:36)
[2021-02-06] MEDS ORDERED: guaiFENesin ER 600 MG TAB PO SCH ×2 (21:00)
[2021-02-06] MEDS: Metoprolol Tartrate 25 MG TAB PO SCH (21:22)
[2021-02-07] MEDS: Cefepime 1 GM in Sodium Chloride 0.9% 100 ML IVPB SCH ×2 (01:35→13:14)
[2021-02-07 04:43] LABS: #Lymphocytes 0.7 thou/uL (1.20-3.40); #Monocytes 0.6 thou/uL (0.11-0.59); #Neutrophils 8.3 thou/uL (1.40-6.50); %Basophils 0.4 % (0.0-1.0); %Eosinophils 0.1 % (0.0-10.0); %Monocytes 5.7 % (0.0-10.0); %Neutrophils 86.8 % (42.0-75.0); Hemoglobin 8.2 g/dL (12.0-16.0); Mean Corpuscular HGB CONC 30.9 g/dL (32.0-36.0); Mean Corpuscular Hemoglobin 29.5 pg (27.0-31.0); Mean Corpuscular Volume 95.6 fL (78.0-98.0); Mean Platelet Volume 7.6 fL (7.4-10.4); Platelet Count 209 thou/uL (130-400); RBC Distribution Width 15.1 % (11.5-14.5); Red Blood Cell (RBC) Count 2.77 mill/uL (4.20-5.40); White Blood Cell (WBC) Count 9.5 thou/uL (4.8-10.8)
[2021-02-07 05:31] LABS: ALT (SGPT) 7 U/L (8-55); AST (SGOT) 16 U/L (5-34); Albumin 2.8 g/dL (3.5-5.0); Alkaline Phosphatase 66 U/L (40-110); Anion Gap 9 mmol/L (10-20); BUN (Urea Nitrogen) 13 mg/dL (9.8-20.1); Calc. Creatinine Clearance 99 mL/min (70-130); Calcium 8.1 mg/dL (7.8-10.44); Carbon Dioxide 17 mmol/L (22-29); Chloride 112 mmol/L (98-107); Globulin 3.2 g/dL (2.4-3.5); Glucose 114 mg/dL (70-105); Potassium 3.4 mmol/L (3.5-5.1); Sodium 135 mmol/L (136-145)
[2021-02-07] MEDS: metroNIDAZOLE 500 MG in Premix Bag 1 BAG IVPB SCH ×4 (06:14→23:31)
[2021-02-07] MEDS: Hydrocortisone Sod Succ/PF 100 mg/2 ml Vial IVP SCH ×4 (06:14→23:31)
[2021-02-07] MEDS: Albumin 25% 25 GM/100 ML BOT IVPB SCH ×4 (06:14→23:32)
[2021-02-07] MEDS ORDERED: Potassium Chloride 20 MEQ TAB PO SCH (06:30)
[2021-02-07] MEDS: Mometasone 200 MCG/Formoterol 5 MCG 120 PUFF INHALER INH SCH ×2 (07:12→18:31)
[2021-02-07] MEDS ORDERED: Potassium Bicarbonate/Cit Ac 20 MEQ TAB PO SCH (08:30)
[2021-02-07] MEDS: Ascorbic Acid 500 mg Chewable Tablet PO SCH (09:12)
[2021-02-07] MEDS: Enoxaparin Sodium 40 MG/0.4 ML SYRINGE SC SCH (09:12)
[2021-02-07] MEDS: Pantoprazole 40 MG VIAL IVP SCH (09:13)
[2021-02-07] MEDS: Metoprolol Tartrate 25 MG TAB PO SCH ×2 (09:14→21:11)
[2021-02-07] MEDS: GUAIFENESIN SF SOLN 200 MG/10 ML UDCUP PER TUBE SCH ×3 (09:45→21:11)
[2021-02-07] MEDS ORDERED: Furosemide 100 MG/10 ML VIAL SLOW IVP SCH (10:00)
[2021-02-07] MEDS: Ondansetron PF 4 MG/2 ML Vial IVP PRN (13:48)
[2021-02-07] MEDS: ALPRAZolam 0.25 MG TAB PO PRN (14:17)
[2021-02-07 16:11] LABS: ANA Symphony (Qualitative) Negative (Negative); ANA Symphony (Quantitative) 0.4 Ratio (< 0.7 Negative); EliA Vaculitis New Method **** NEW METHOD ****; Mitochondrial Ab 2.7 U/mL (<4 Negative); dsDNA IgG Antibody 2.2 IU/mL (<10 Negative)
[2021-02-07] MEDS: HYDROcodone/Acetaminophen 5/325 mg Tablet PO PRN (21:32)
[2021-02-07] MEDS ORDERED: Multivitamins, Adult 10 ML, TRACE ELEMENT CONCENTRATE 1 ML in D15W-AA 5% with Lytes 2,0... IV SCH (22:00)
[2021-02-08] MEDS: Cefepime 1 GM in Sodium Chloride 0.9% 100 ML IVPB SCH ×2 (01:40→12:00)
[2021-02-08 02:40] LABS: #Lymphocytes 0.8 thou/uL (1.20-3.40); #Monocytes 0.6 thou/uL (0.11-0.59); #Neutrophils 7.7 thou/uL (1.40-6.50); %Basophils 0.2 % (0.0-1.0); %Eosinophils 0.3 % (0.0-10.0); %Monocytes 6.6 % (0.0-10.0); %Neutrophils 83.9 % (42.0-75.0); Hemoglobin 7.8 g/dL (12.0-16.0); Mean Corpuscular HGB CONC 31.9 g/dL (32.0-36.0); Mean Corpuscular Hemoglobin 30.3 pg (27.0-31.0); Mean Corpuscular Volume 94.8 fL (78.0-98.0); Mean Platelet Volume 7.5 fL (7.4-10.4); Platelet Count 191 thou/uL (130-400); RBC Distribution Width 15.3 % (11.5-14.5); Red Blood Cell (RBC) Count 2.57 mill/uL (4.20-5.40); White Blood Cell (WBC) Count 9.2 thou/uL (4.8-10.8)
[2021-02-08 03:06] LABS: ALT (SGPT) Less than 7 U/L (8-55); AST (SGOT) 12 U/L (5-34); Albumin 3.4 g/dL (3.5-5.0); Alkaline Phosphatase 52 U/L (40-110); Anion Gap 11 mmol/L (10-20); BUN (Urea Nitrogen) 16 mg/dL (9.8-20.1); Calc. Creatinine Clearance 85 mL/min (70-130); Calcium 8.2 mg/dL (7.8-10.44); Carbon Dioxide 20 mmol/L (22-29); Chloride 108 mmol/L (98-107); Globulin 2.7 g/dL (2.4-3.5); Glucose 254 mg/dL (70-105); Potassium 3.1 mmol/L (3.5-5.1); Protein, Total 6.1 g/dL (6.0-8.3); Sodium 136 mmol/L (136-145)
[2021-02-08] MEDS ORDERED: Potassium Bicarbonate/Cit Ac 20 MEQ TAB PER TUBE SCH (03:30)
[2021-02-08] MEDS ORDERED: Furosemide 40 MG/4 ML VIAL SLOW IVP SCH (03:45)
[2021-02-08] MEDS: Hydrocortisone Sod Succ/PF 100 mg/2 ml Vial IVP SCH ×4 (06:13→22:19)
[2021-02-08] MEDS: metroNIDAZOLE 500 MG in Premix Bag 1 BAG IVPB SCH ×4 (06:13→22:18)
[2021-02-08] MEDS: Mometasone 200 MCG/Formoterol 5 MCG 120 PUFF INHALER INH SCH ×2 (07:01→18:26)
[2021-02-08] MEDS ORDERED: Dextrose 5% in Water 1,000 ML IV PRN (08:04)
[2021-02-08] MEDS ORDERED: Dextrose 50% Abboject 50 ML SYRINGE SLOW IVP PRN (08:04)
[2021-02-08] MEDS ORDERED: Lantus 1000 UNITS/10 ML VIAL SC SCH (09:00)
[2021-02-08] MEDS ORDERED: Insulin Glargine 10 UNITS in Pre-Filled Syringe 1 EACH SC SCH (09:00)
[2021-02-08 09:09] LABS: #Lymphocytes 0.7 thou/uL (1.20-3.40); #Monocytes 0.6 thou/uL (0.11-0.59); #Neutrophils 7.5 thou/uL (1.40-6.50); %Eosinophils 0.2 % (0.0-10.0); %Lymphocytes 7.4 % (21.0-51.0); %Monocytes 6.9 % (0.0-10.0); %Neutrophils 85.5 % (42.0-75.0); Hemoglobin 8.1 g/dL (12.0-16.0); Mean Corpuscular HGB CONC 31.9 g/dL (32.0-36.0); Mean Corpuscular Hemoglobin 30.1 pg (27.0-31.0); Mean Corpuscular Volume 94.6 fL (78.0-98.0); Mean Platelet Volume 7.8 fL (7.4-10.4); Platelet Count 187 thou/uL (130-400); RBC Distribution Width 15.2 % (11.5-14.5); Red Blood Cell (RBC) Count 2.68 mill/uL (4.20-5.40); White Blood Cell (WBC) Count 8.8 thou/uL (4.8-10.8)
[2021-02-08] MEDS: Enoxaparin Sodium 40 MG/0.4 ML SYRINGE SC SCH (09:32)
[2021-02-08] MEDS: ALPRAZolam 0.25 MG TAB PO SCH ×2 (09:32→20:25)
[2021-02-08] MEDS: GUAIFENESIN SF SOLN 200 MG/10 ML UDCUP PER TUBE SCH ×3 (09:34→20:25)
[2021-02-08] MEDS: Metoprolol Tartrate 25 MG TAB PO SCH ×2 (09:34→20:26)
[2021-02-08] MEDS: Ascorbic Acid 500 mg Chewable Tablet PO SCH (09:34)
[2021-02-08] MEDS: Pantoprazole 40 MG VIAL IVP SCH (09:36)
[2021-02-08 09:40] LABS: ALT (SGPT) Less than 7 U/L (8-55); AST (SGOT) 13 U/L (5-34); Albumin 3.4 g/dL (3.5-5.0); Alkaline Phosphatase 50 U/L (40-110); Anion Gap 12 mmol/L (10-20); BUN (Urea Nitrogen) 18 mg/dL (9.8-20.1); Bilirubin, Total 1.1 mg/dL (0.2-1.2); Calc. Creatinine Clearance 83 mL/min (70-130); Calcium 8.2 mg/dL (7.8-10.44); Carbon Dioxide 25 mmol/L (22-29); Chloride 105 mmol/L (98-107); Cholesterol 110 mg/dl (< 200 Desired); Globulin 2.9 g/dL (2.4-3.5); Glucose 349 mg/dL (70-105); HDL Cholesterol Less than 8 mg/dL (>60 Neg Risk); Protein, Total 6.3 g/dL (6.0-8.3); Sodium 139 mmol/L (136-145); Triglycerides 108 mg/dL (Less than 150)
[2021-02-08 09:53] LABS: Cardiac Risk TEST NOT PERFORMED (Less than 4.5); Phosphorus 1.4 mg/dL (2.3-4.7)
[2021-02-08 09:56] LABS: INR-International Normal Ratio 1.5; PTT 35.3 sec (22.9-36.1); Prothrombin Time 18.2 sec (12.0-14.7)
[2021-02-08] MEDS ORDERED: Potassium Phosphate 22 MMOL in Sodium Chloride 0.9% 250 ML 250 ML IVPB SCH (10:15)
[2021-02-08] MEDS ORDERED: Magnesium 2 GM/50 ML 2 GM in Premix Bag 1 BAG IVPB SCH (10:15)
[2021-02-08] MEDS ORDERED: Potassium Chloride 8 MEQ in Sodium Chloride 0.9% 100 ML IVPB SCH (10:30)
[2021-02-08] MEDS: Insulin Regular 300 UNITS/3 ML VIAL SC PRN ×2 (11:42→18:17)
[2021-02-08] MEDS: Furosemide 40 MG/4 ML VIAL SLOW IVP SCH (14:07)
[2021-02-08 16:50] LABS: Anion Gap 11 mmol/L (10-20); BUN (Urea Nitrogen) 19 mg/dL (9.8-20.1); Calc. Creatinine Clearance 93 mL/min (70-130); Calcium 8.3 mg/dL (7.8-10.44); Carbon Dioxide 26 mmol/L (22-29); Chloride 104 mmol/L (98-107); Glucose 239 mg/dL (70-105); Sodium 138 mmol/L (136-145)
[2021-02-08 16:56] LABS: Potassium 2.9 mmol/L (3.5-5.1)
[2021-02-08] MEDS: Potassium Chloride 40 MEQ in Premix Bag 1 BAG IVPB SCH ×2 (17:31→20:25)
[2021-02-08 17:36] LABS: Smooth Muscle Total ABS 9 Units (0-19)
[2021-02-08] MEDS: Acetaminophen 325 MG TAB PO PRN (21:18)
[2021-02-08] MEDS: Fat Emulsion 100 ML IVPB SCH (22:17)
[2021-02-08] MEDS: Multivitamins, Adult 10 ML, TRACE ELEMENT CONCENTRATE 1 ML in D15W-AA 5% with Lytes 2,0... IV SCH (22:18)
[2021-02-09] MEDS: Insulin Regular 300 UNITS/3 ML VIAL SC PRN ×3 (00:28→18:08)
[2021-02-09] MEDS: Cefepime 1 GM in Sodium Chloride 0.9% 100 ML IVPB SCH ×2 (00:33→12:15)
[2021-02-09 02:27] LABS: #Eosinphils 0.1 thou/uL (0.0-0.7); #Lymphocytes 1.2 thou/uL (1.20-3.40); #Neutrophils 11.4 thou/uL (1.40-6.50); %Eosinophils 0.7 % (0.0-10.0); %Lymphocytes 8.9 % (21.0-51.0); %Monocytes 7.2 % (0.0-10.0); %Neutrophils 83.3 % (42.0-75.0); Mean Corpuscular HGB CONC 31.9 g/dL (32.0-36.0); Mean Corpuscular Hemoglobin 30.3 pg (27.0-31.0); Mean Corpuscular Volume 94.9 fL (78.0-98.0); Mean Platelet Volume 7.4 fL (7.4-10.4); Platelet Count 174 thou/uL (130-400); RBC Distribution Width 15.6 % (11.5-14.5); Red Blood Cell (RBC) Count 2.64 mill/uL (4.20-5.40); White Blood Cell (WBC) Count 13.6 thou/uL (4.8-10.8)
[2021-02-09 02:43] LABS: Anion Gap 10 mmol/L (10-20); BUN (Urea Nitrogen) 19 mg/dL (9.8-20.1); Calc. Creatinine Clearance 102 mL/min (70-130); Carbon Dioxide 28 mmol/L (22-29); Chloride 103 mmol/L (98-107); Glucose 288 mg/dL (70-105); Potassium 3.3 mmol/L (3.5-5.1); Sodium 138 mmol/L (136-145)
[2021-02-09] MEDS ORDERED: Potassium Chloride 20 MEQ TAB PO SCH ×2 (05:15→17:15)
[2021-02-09] MEDS: Furosemide 40 MG/4 ML VIAL SLOW IVP SCH ×2 (05:30→14:58)
[2021-02-09] MEDS: Hydrocortisone Sod Succ/PF 100 mg/2 ml Vial IVP SCH ×3 (05:30→17:57)
[2021-02-09] MEDS ORDERED: Potassium Bicarbonate/Cit Ac 20 MEQ TAB PER TUBE SCH ×2 (05:30→10:30)
[2021-02-09] MEDS: metroNIDAZOLE 500 MG in Premix Bag 1 BAG IVPB SCH ×3 (05:31→17:57)
[2021-02-09] MEDS: Acetaminophen 325 MG TAB PO PRN (05:56)
[2021-02-09] MEDS: Mometasone 200 MCG/Formoterol 5 MCG 120 PUFF INHALER INH SCH ×2 (07:51→18:56)
[2021-02-09] MEDS: ALPRAZolam 0.25 MG TAB PO SCH ×2 (08:19→20:15)
[2021-02-09] MEDS: Ascorbic Acid 500 mg Chewable Tablet PO SCH (08:19)
[2021-02-09] MEDS: Pantoprazole 40 MG VIAL IVP SCH (08:19)
[2021-02-09] MEDS: HYDROcodone/Acetaminophen 5/325 mg Tablet PO PRN ×2 (08:19→22:04)
[2021-02-09] MEDS: Metoprolol Tartrate 25 MG TAB PO SCH ×2 (08:19→20:15)
[2021-02-09] MEDS: GUAIFENESIN SF SOLN 200 MG/10 ML UDCUP PER TUBE SCH ×3 (08:19→20:16)
[2021-02-09] MEDS: Enoxaparin Sodium 40 MG/0.4 ML SYRINGE SC SCH (08:20)
[2021-02-09] MEDS: Lantus 1000 UNITS/10 ML VIAL SC SCH (08:22)
[2021-02-09 09:34] LABS: Hemoglobin 8.4 g/dL (12.0-16.0); Mean Corpuscular HGB CONC 31.2 g/dL (32.0-36.0); Mean Corpuscular Hemoglobin 29.4 pg (27.0-31.0); Mean Corpuscular Volume 94.2 fL (78.0-98.0); Mean Platelet Volume 7.9 fL (7.4-10.4); Platelet Count 200 thou/uL (130-400); RBC Distribution Width 15.4 % (11.5-14.5); Red Blood Cell (RBC) Count 2.86 mill/uL (4.20-5.40)
[2021-02-09 09:40] LABS: INR-International Normal Ratio 1.5; Prothrombin Time 17.9 sec (12.0-14.7)
[2021-02-09 09:52] LABS: ALT (SGPT) 7 U/L (8-55); AST (SGOT) 19 U/L (5-34); Alkaline Phosphatase 49 U/L (40-110); Anion Gap 10 mmol/L (10-20); BUN (Urea Nitrogen) 18 mg/dL (9.8-20.1); Bilirubin, Total 1.1 mg/dL (0.2-1.2); Calc. Creatinine Clearance 106 mL/min (70-130); Calcium 7.8 mg/dL (7.8-10.44); Carbon Dioxide 31 mmol/L (22-29); Cardiac Risk 11.8 (Less than 4.5); Chloride 98 mmol/L (98-107); Cholesterol 106 mg/dl (< 200 Desired); Globulin 2.9 g/dL (2.4-3.5); Glucose 266 mg/dL (70-105); HDL Cholesterol 9 mg/dL (>60 Neg Risk); LDL Cholesterol, Calculated 75 mg/dL; Magnesium 1.9 mg/dL (1.6-2.6); Potassium 3.2 mmol/L (3.5-5.1); Protein, Total 5.9 g/dL (6.0-8.3); Sodium 136 mmol/L (136-145); Triglycerides 111 mg/dL (Less than 150)
[2021-02-09 09:54] LABS: Phosphorus 1.5 mg/dL (2.3-4.7)
[2021-02-09 09:55] LABS: Band 7 % (5-11); Lymphocytes 5 % (21-51); MDiff Complete? YES; Metamyelocyte 1 % (0-0); Monocytes 4 % (0-10); Myelocyte 2 % (0-0); Neutrophil 80 % (42-75); Nucleated RBC 1 % (0); Reactive Lymphocytes 1 % (0-10)
[2021-02-09] MEDS ORDERED: Magnesium 2 GM/50 ML 2 GM in Premix Bag 1 BAG IVPB SCH (10:30)
[2021-02-09] MEDS ORDERED: Potassium Bicarbonate/Cit Ac 20 MEQ TAB PO SCH (10:45)
[2021-02-09] MEDS: PHOS-NAK 1 PKT PACK PO SCH ×3 (12:14→20:14)
[2021-02-09 16:03] LABS: Anion Gap 12 mmol/L (10-20); BUN (Urea Nitrogen) 19 mg/dL (9.8-20.1); Calc. Creatinine Clearance 106 mL/min (70-130); Calcium 8.2 mg/dL (7.8-10.44); Carbon Dioxide 33 mmol/L (22-29); Chloride 96 mmol/L (98-107); Glucose 270 mg/dL (70-105); Sodium 138 mmol/L (136-145)
[2021-02-09] MEDS: Multivitamins, Adult 10 ML, TRACE ELEMENT CONCENTRATE 1 ML in D15W-AA 5% with Lytes 2,0... IV SCH (22:21)
[2021-02-09] MEDS: Fat Emulsion 100 ML IVPB SCH (22:21)
[2021-02-10] MEDS: PHOS-NAK 1 PKT PACK PO SCH (00:02)
[2021-02-10] MEDS: Hydrocortisone Sod Succ/PF 100 mg/2 ml Vial IVP SCH ×5 (00:02→23:53)
[2021-02-10] MEDS: Cefepime 1 GM in Sodium Chloride 0.9% 100 ML IVPB SCH ×3 (00:05→23:59)
[2021-02-10] MEDS: metroNIDAZOLE 500 MG in Premix Bag 1 BAG IVPB SCH ×5 (00:05→23:51)
[2021-02-10] MEDS: Insulin Regular 300 UNITS/3 ML VIAL SC PRN ×4 (00:20→23:55)
[2021-02-10] MEDS: Furosemide 40 MG/4 ML VIAL SLOW IVP SCH ×2 (05:15→13:21)
[2021-02-10 07:04] LABS: INR-International Normal Ratio 1.3; Prothrombin Time 16.2 sec (12.0-14.7)
[2021-02-10 07:05] LABS: Hemoglobin 9.1 g/dL (12.0-16.0); Mean Corpuscular Hemoglobin 29.2 pg (27.0-31.0); Mean Corpuscular Volume 94.2 fL (78.0-98.0); Mean Platelet Volume 8.1 fL (7.4-10.4); PTT 32.3 sec (22.9-36.1); Platelet Count 222 thou/uL (130-400); RBC Distribution Width 15.6 % (11.5-14.5); Red Blood Cell (RBC) Count 3.13 mill/uL (4.20-5.40); White Blood Cell (WBC) Count 19.9 thou/uL (4.8-10.8)
[2021-02-10] MEDS: Mometasone 200 MCG/Formoterol 5 MCG 120 PUFF INHALER INH SCH ×2 (07:23→18:49)
[2021-02-10 07:29] LABS: ALT (SGPT) 8 U/L (8-55); AST (SGOT) 25 U/L (5-34); Albumin 3.1 g/dL (3.5-5.0); Alkaline Phosphatase 55 U/L (40-110); BUN (Urea Nitrogen) 18 mg/dL (9.8-20.1); Bilirubin, Total 0.9 mg/dL (0.2-1.2); Calc. Creatinine Clearance 110 mL/min (70-130); Calcium 7.8 mg/dL (7.8-10.44); Globulin 3.1 g/dL (2.4-3.5); Glucose 260 mg/dL (70-105); Protein, Total 6.2 g/dL (6.0-8.3)
[2021-02-10 07:36] LABS: Phosphorus 2.1 mg/dL (2.3-4.7)
[2021-02-10 07:43] LABS: Chloride 92 mmol/L (98-107); Potassium 2.8 mmol/L (3.5-5.1); Sodium 138 mmol/L (136-145)
[2021-02-10 08:04] LABS: Triglycerides 138 mg/dL (Less than 150)
[2021-02-10 08:09] LABS: Cardiac Risk 8.8 (Less than 4.5); Cholesterol 115 mg/dl (< 200 Desired); HDL Cholesterol 13 mg/dL (>60 Neg Risk); LDL Cholesterol, Calculated 74 mg/dL
[2021-02-10 08:38] LABS: Band 1 % (5-11); Eosinophils 1 % (0-10); Lymphocytes 12 % (21-51); MDiff Complete? YES; Monocytes 7 % (0-10); Neutrophil 77 % (42-75); Nucleated RBC 2 % (0); Polychromasia SLIGHT = 2-3 cells (100X) (0-2/hpf); Reactive Lymphocytes 2 % (0-10)
[2021-02-10] MEDS ORDERED: Magnesium 2 GM/50 ML 2 GM in Premix Bag 1 BAG IVPB SCH (08:45)
[2021-02-10 08:49] LABS: Anion Gap 16 mmol/L (10-20); Carbon Dioxide 33 mmol/L (22-29)
[2021-02-10] MEDS: Pantoprazole 40 MG VIAL IVP SCH (09:35)
[2021-02-10] MEDS: Enoxaparin Sodium 40 MG/0.4 ML SYRINGE SC SCH (09:35)
[2021-02-10] MEDS: GUAIFENESIN SF SOLN 200 MG/10 ML UDCUP PER TUBE SCH ×3 (09:36→20:38)
[2021-02-10] MEDS: Metoprolol Tartrate 25 MG TAB PO SCH ×2 (09:36→20:38)
[2021-02-10] MEDS: Ascorbic Acid 500 mg Chewable Tablet PO SCH (09:36)
[2021-02-10] MEDS: ALPRAZolam 0.25 MG TAB PO SCH ×2 (09:36→20:38)
[2021-02-10] MEDS: Potassium Chloride 20 MEQ TAB PO SCH ×2 (09:43→13:23)
[2021-02-10] MEDS: Lantus 1000 UNITS/10 ML VIAL SC SCH (09:43)
[2021-02-10] MEDS: HYDROcodone/Acetaminophen 5/325 mg Tablet PO PRN ×2 (09:54→21:58)
[2021-02-10] MEDS: Multivitamins, Adult 10 ML, TRACE ELEMENT CONCENTRATE 1 ML in D15W-AA 5% with Lytes 2,0... IV SCH (21:53)
[2021-02-10] MEDS: Fat Emulsion 100 ML IVPB SCH (21:53)
[2021-02-11] MEDS: metroNIDAZOLE 500 MG in Premix Bag 1 BAG IVPB SCH ×4 (05:10→23:12)
[2021-02-11] MEDS: Furosemide 40 MG/4 ML VIAL SLOW IVP SCH ×2 (05:10→14:01)
[2021-02-11] MEDS: Hydrocortisone Sod Succ/PF 100 mg/2 ml Vial IVP SCH ×4 (05:13→23:11)
[2021-02-11] MEDS: Insulin Regular 300 UNITS/3 ML VIAL SC PRN ×2 (05:32→18:12)
[2021-02-11 05:46] LABS: #Lymphocytes 1.7 thou/uL (1.20-3.40); #Monocytes 1.6 thou/uL (0.11-0.59); #Neutrophils 14.2 thou/uL (1.40-6.50); %Basophils 0.1 % (0.0-1.0); %Eosinophils 0.1 % (0.0-10.0); %Lymphocytes 9.8 % (21.0-51.0); %Neutrophils 81.1 % (42.0-75.0); Hemoglobin 8.4 g/dL (12.0-16.0); Mean Corpuscular HGB CONC 31.8 g/dL (32.0-36.0); Mean Corpuscular Volume 94.2 fL (78.0-98.0); Mean Platelet Volume 8.1 fL (7.4-10.4); Platelet Count 196 thou/uL (130-400); RBC Distribution Width 15.5 % (11.5-14.5); Red Blood Cell (RBC) Count 2.79 mill/uL (4.20-5.40); White Blood Cell (WBC) Count 17.5 thou/uL (4.8-10.8)
[2021-02-11 05:53] LABS: INR-International Normal Ratio 1.3; PTT 34.3 sec (22.9-36.1); Prothrombin Time 16.8 sec (12.0-14.7)
[2021-02-11 06:20] LABS: Phosphorus 2.3 mg/dL (2.3-4.7)
[2021-02-11 06:23] LABS: ALT (SGPT) 11 U/L (8-55); AST (SGOT) 23 U/L (5-34); Albumin 2.7 g/dL (3.5-5.0); Alkaline Phosphatase 56 U/L (40-110); BUN (Urea Nitrogen) 21 mg/dL (9.8-20.1); Bilirubin, Total 0.8 mg/dL (0.2-1.2); Calc. Creatinine Clearance 107 mL/min (70-130); Calcium 7.8 mg/dL (7.8-10.44); Cardiac Risk 7.8 (Less than 4.5); Cholesterol 102 mg/dl (< 200 Desired); Glucose 282 mg/dL (70-105); HDL Cholesterol 13 mg/dL (>60 Neg Risk); LDL Cholesterol, Calculated 62 mg/dL; Magnesium 2.1 mg/dL (1.6-2.6); Protein, Total 5.7 g/dL (6.0-8.3); Triglycerides 133 mg/dL (Less than 150)
[2021-02-11] MEDS: Mometasone 200 MCG/Formoterol 5 MCG 120 PUFF INHALER INH SCH ×2 (06:25→19:54)
[2021-02-11 06:33] LABS: Anion Gap 13 mmol/L (10-20); Carbon Dioxide 34 mmol/L (22-29); Chloride 93 mmol/L (98-107); Sodium 137 mmol/L (136-145)
[2021-02-11] MEDS ORDERED: Potassium Chloride 20 MEQ TAB PO SCH (07:15)
[2021-02-11] MEDS ORDERED: Acetaminophen 325 MG TAB ONE (12:55)
[2021-02-11] MEDS ORDERED: Hydrocortisone Sod Succ/PF 100 mg/2 ml Vial ONE (12:57)
[2021-02-11] MEDS ORDERED: Furosemide 40 MG/4 ML VIAL ONE (12:57)
[2021-02-11] MEDS ORDERED: metroNIDAZOLE 500 MG/100 ML BAG ONE (12:57)
[2021-02-11] MEDS: Ascorbic Acid 500 mg Chewable Tablet PO SCH (13:59)
[2021-02-11] MEDS: Metoprolol Tartrate 25 MG TAB PO SCH ×2 (13:59→21:56)
[2021-02-11] MEDS: Lantus 1000 UNITS/10 ML VIAL SC SCH (13:59)
[2021-02-11] MEDS: ALPRAZolam 0.25 MG TAB PO SCH ×2 (13:59→21:52)
[2021-02-11] MEDS: GUAIFENESIN SF SOLN 200 MG/10 ML UDCUP PER TUBE SCH ×3 (13:59→21:51)
[2021-02-11] MEDS: Pantoprazole 40 MG VIAL IVP SCH (13:59)
[2021-02-11] MEDS: Enoxaparin Sodium 40 MG/0.4 ML SYRINGE SC SCH (13:59)
[2021-02-11] MEDS: Cefepime 1 GM in Sodium Chloride 0.9% 100 ML IVPB SCH (14:01)
[2021-02-11 17:24] VITALS: BMI 31.8
[2021-02-12] MEDS: HYDROcodone/Acetaminophen 5/325 mg Tablet PO PRN (00:14)
[2021-02-12] MEDS: Cefepime 1 GM in Sodium Chloride 0.9% 100 ML IVPB SCH ×2 (00:16→11:23)
[2021-02-12] MEDS: Hydrocortisone Sod Succ/PF 100 mg/2 ml Vial IVP SCH ×3 (05:14→20:27)
[2021-02-12] MEDS: metroNIDAZOLE 500 MG in Premix Bag 1 BAG IVPB SCH ×2 (05:15→11:23)
[2021-02-12] MEDS: Furosemide 40 MG/4 ML VIAL SLOW IVP SCH ×2 (05:15→15:08)
[2021-02-12] MEDS: Mometasone 200 MCG/Formoterol 5 MCG 120 PUFF INHALER INH SCH ×2 (07:34→19:31)
[2021-02-12] MEDS: Metoprolol Tartrate 25 MG TAB PO SCH ×2 (08:47→20:28)
[2021-02-12] MEDS: ALPRAZolam 0.25 MG TAB PO SCH ×2 (08:47→20:29)
[2021-02-12] MEDS: Ascorbic Acid 500 mg Chewable Tablet PO SCH (08:47)
[2021-02-12] MEDS: Enoxaparin Sodium 40 MG/0.4 ML SYRINGE SC SCH (08:47)
[2021-02-12] MEDS: GUAIFENESIN SF SOLN 200 MG/10 ML UDCUP PER TUBE SCH ×3 (08:48→20:27)
[2021-02-12] MEDS: Lantus 1000 UNITS/10 ML VIAL SC SCH (08:48)
[2021-02-12] MEDS: Pantoprazole 40 MG VIAL IVP SCH (08:48)
[2021-02-12 11:02] LABS: INR-International Normal Ratio 1.3; PTT 39.5 sec (22.9-36.1); Prothrombin Time 16.9 sec (12.0-14.7)
[2021-02-12 11:04] LABS: #Lymphocytes 0.9 thou/uL (1.20-3.40); #Monocytes 1.7 thou/uL (0.11-0.59); #Neutrophils 16.2 thou/uL (1.40-6.50); %Basophils 0.1 % (0.0-1.0); %Eosinophils 0.1 % (0.0-10.0); %Lymphocytes 4.9 % (21.0-51.0); Hemoglobin 8.8 g/dL (12.0-16.0); Mean Corpuscular HGB CONC 30.7 g/dL (32.0-36.0); Mean Corpuscular Volume 94.3 fL (78.0-98.0); Mean Platelet Volume 8.2 fL (7.4-10.4); Platelet Count 199 thou/uL (130-400); RBC Distribution Width 15.8 % (11.5-14.5); Red Blood Cell (RBC) Count 3.04 mill/uL (4.20-5.40); White Blood Cell (WBC) Count 18.9 thou/uL (4.8-10.8)
[2021-02-12 11:14] LABS: Phosphorus 2.1 mg/dL (2.3-4.7)
[2021-02-12 11:26] LABS: ALT (SGPT) 21 U/L (8-55); AST (SGOT) 37 U/L (5-34); Albumin 2.9 g/dL (3.5-5.0); Alkaline Phosphatase 84 U/L (40-110); BUN (Urea Nitrogen) 18 mg/dL (9.8-20.1); Bilirubin, Total 0.9 mg/dL (0.2-1.2); Calc. Creatinine Clearance 102 mL/min (70-130); Calcium 8.4 mg/dL (7.8-10.44); Cardiac Risk 5.9 (Less than 4.5); Cholesterol 106 mg/dl (< 200 Desired); Globulin 3.2 g/dL (2.4-3.5); Glucose 195 mg/dL (70-105); HDL Cholesterol 18 mg/dL (>60 Neg Risk); LDL Cholesterol, Calculated 68 mg/dL; Magnesium 1.7 mg/dL (1.6-2.6); Protein, Total 6.1 g/dL (6.0-8.3); Triglycerides 99 mg/dL (Less than 150)
[2021-02-12 11:35] LABS: Anion Gap 18 mmol/L (10-20); Carbon Dioxide 32 mmol/L (22-29); Chloride 90 mmol/L (98-107); Sodium 137 mmol/L (136-145)
[2021-02-12 11:39] LABS: Potassium 2.8 mmol/L (3.5-5.1)
[2021-02-12] MEDS ORDERED: Potassium Chloride 20 MEQ TAB PO SCH (12:00)
[2021-02-12] MEDS ORDERED: Potassium Bicarbonate/Cit Ac 20 MEQ TAB PO SCH (12:15)
[2021-02-12 12:40] LABS: Alpha-1-Antitrypsin 154 mg/dL (101-187)
[2021-02-12] MEDS ORDERED: Magnesium 2 GM/50 ML 2 GM in Premix Bag 1 BAG IVPB SCH (13:00)
[2021-02-12] MEDS ORDERED: Furosemide 40 MG/4 ML VIAL SLOW IVP SCH (15:15)
[2021-02-12] MEDS: Potassium Bicarbonate/Cit Ac 20 MEQ TAB PO SCH (15:45)
[2021-02-12] MEDS: Insulin Regular 300 UNITS/3 ML VIAL SC PRN (18:57)
[2021-02-12] MEDS ORDERED: Metoprolol Tartrate 25 MG TAB PO SCH (21:00)
[2021-02-13 05:21] LABS: BUN (Urea Nitrogen) 17 mg/dL (9.8-20.1); Calc. Creatinine Clearance 119 mL/min (70-130); Calcium 8.1 mg/dL (7.8-10.44); Glucose 139 mg/dL (70-105); Magnesium 2.1 mg/dL (1.6-2.6)
[2021-02-13] MEDS: Furosemide 40 MG/4 ML VIAL SLOW IVP SCH ×2 (05:28→14:31)
[2021-02-13 05:30] LABS: Anion Gap 16 mmol/L (10-20); Carbon Dioxide 34 mmol/L (22-29); Chloride 89 mmol/L (98-107); Potassium 3.4 mmol/L (3.5-5.1); Sodium 136 mmol/L (136-145)
[2021-02-13] MEDS ORDERED: Potassium Chloride 20 MEQ TAB PO SCH (06:00)
[2021-02-13] MEDS: Mometasone 200 MCG/Formoterol 5 MCG 120 PUFF INHALER INH SCH ×2 (07:03→18:35)
[2021-02-13] MEDS: ALPRAZolam 0.25 MG TAB PO SCH ×2 (09:02→20:15)
[2021-02-13] MEDS: Ascorbic Acid 500 mg Chewable Tablet PO SCH (09:02)
[2021-02-13] MEDS: Pantoprazole 40 MG VIAL IVP SCH (09:02)
[2021-02-13] MEDS: Potassium Bicarbonate/Cit Ac 20 MEQ TAB PO SCH ×2 (09:02→16:13)
[2021-02-13] MEDS: Hydrocortisone Sod Succ/PF 100 mg/2 ml Vial IVP SCH (09:03)
[2021-02-13] MEDS: GUAIFENESIN SF SOLN 200 MG/10 ML UDCUP PER TUBE SCH ×3 (09:04→20:15)
[2021-02-13] MEDS: Enoxaparin Sodium 40 MG/0.4 ML SYRINGE SC SCH (09:04)
[2021-02-13] MEDS: Lantus 1000 UNITS/10 ML VIAL SC SCH (09:05)
[2021-02-13] MEDS: Metoprolol Tartrate 25 MG TAB PO SCH ×2 (09:20→20:15)
[2021-02-13 10:48] LABS: Hemoglobin 9.2 g/dL (12.0-16.0); Mean Corpuscular HGB CONC 30.5 g/dL (32.0-36.0); Mean Corpuscular Hemoglobin 28.7 pg (27.0-31.0); Mean Corpuscular Volume 94.3 fL (78.0-98.0); Mean Platelet Volume 8.4 fL (7.4-10.4); Platelet Count 207 thou/uL (130-400); RBC Distribution Width 15.6 % (11.5-14.5); Red Blood Cell (RBC) Count 3.19 mill/uL (4.20-5.40); White Blood Cell (WBC) Count 20.8 thou/uL (4.8-10.8)
[2021-02-13 10:51] LABS: INR-International Normal Ratio 1.3; PTT 35.1 sec (22.9-36.1); Prothrombin Time 16.7 sec (12.0-14.7)
[2021-02-13 11:06] LABS: ALT (SGPT) 26 U/L (8-55); AST (SGOT) 40 U/L (5-34); Albumin 3.1 g/dL (3.5-5.0); Alkaline Phosphatase 94 U/L (40-110); BUN (Urea Nitrogen) 16 mg/dL (9.8-20.1); Calc. Creatinine Clearance 107 mL/min (70-130); Calcium 8.2 mg/dL (7.8-10.44); Cardiac Risk 4.7 (Less than 4.5); Cholesterol 113 mg/dl (< 200 Desired); Globulin 3.3 g/dL (2.4-3.5); Glucose 107 mg/dL (70-105); HDL Cholesterol 24 mg/dL (>60 Neg Risk); LDL Cholesterol, Calculated 69 mg/dL; Magnesium 1.9 mg/dL (1.6-2.6); Protein, Total 6.4 g/dL (6.0-8.3); Triglycerides 99 mg/dL (Less than 150)
[2021-02-13 11:10] LABS: Phosphorus 1.6 mg/dL (2.3-4.7)
[2021-02-13] MEDS ORDERED: Potassium Phosphate 15 MMOL in Sodium Chloride 0.9% 250 ML 250 ML IVPB SCH (11:15)
[2021-02-13 11:16] LABS: Anion Gap 14 mmol/L (10-20); Carbon Dioxide 37 mmol/L (22-29); Chloride 88 mmol/L (98-107); Potassium 3.1 mmol/L (3.5-5.1); Sodium 136 mmol/L (136-145)
[2021-02-13 11:17] LABS: Band 1 % (5-11); Hypochromia SLIGHT = 6-15 cells (100X) (0-5/hpf); Lymphocytes 6 % (21-51); MDiff Complete? YES; Monocytes 11 % (0-10); Neutrophil 82 % (42-75); Platelet Morphology Comment Appears Adequate; Polychromasia SLIGHT = 2-3 cells (100X) (0-2/hpf); Stomatocytes SLIGHT = 2-5 cells (100X) (0-1/hpf)
[2021-02-13] MEDS ORDERED: Magnesium 2 GM/50 ML 2 GM in Premix Bag 1 BAG IVPB SCH (11:30)
[2021-02-13] MEDS ORDERED: Electrolyte Replacement Protocol FS PRN (11:30)
[2021-02-13] MEDS: Acetaminophen 325 MG TAB PO PRN (14:30)
[2021-02-13] MEDS ORDERED: HYDROcodone/Acetaminophen 5/325 mg Tablet PO PRN (16:45)
[2021-02-13 19:55] VITALS: BP 126/57; TEMP 98.1
[2021-02-14] MEDS ORDERED: predniSONE 20 MG TAB PO SCH (08:00)
== END 2021-02-13 23:45 | DRG 871 ==
LOC: ERS 10:23 → CCU 15:19 → IMCU/EMU 02-09 14:44 → 2NO 02-11 19:51
PROVIDERS: ADMIT Internal Medicine; ATTEND Hospitalist
PROC: 3E033XZ Introduction of Vasopressor into Peripheral Vein, Percutaneous Approach (ICD-10-PCS; principal; 2021-02-03)
PROC: 06HY33Z Insertion of Infusion Device into Lower Vein, Percutaneous Approach (ICD-10-PCS; 2021-02-03)
PROC: 8E0ZXY6 Isolation (ICD-10-PCS; 2021-02-03)
PROC: 0D9670Z Drainage of Stomach with Drainage Device, Via Natural or Artificial Opening (ICD-10-PCS; 2021-02-05)
PROC: 5A09357 Assistance with Respiratory Ventilation, Less than 24 Consecutive Hours, Continuous Positive Airway Pressure (ICD-10-PCS; 2021-02-08)
PROC: 5A0945A Assistance with Respiratory Ventilation, 24-96 Consecutive Hours, High Flow/Velocity Cannula (ICD-10-PCS; 2021-02-08)
DX: A41.52 Sepsis due to Pseudomonas (principal); J96.21 Acute and chronic respiratory failure with hypoxia; R65.21 Severe sepsis with septic shock; J18.9 Pneumonia, unspecified organism; K56.7 Ileus, unspecified; I42.9 Cardiomyopathy, unspecified; N39.0 Urinary tract infection, site not specified; E87.2 Acidosis; J44.0 Chronic obstructive pulmonary disease with (acute) lower respiratory infection; I50.32 Chronic diastolic (congestive) heart failure; Z20.822 Contact with and (suspected) exposure to COVID-19; K43.5 Parastomal hernia without obstruction or gangrene; I25.10 Atherosclerotic heart disease of native coronary artery without angina pectoris; E86.0 Dehydration; F41.9 Anxiety disorder, unspecified; I11.0 Hypertensive heart disease with heart failure; R91.8 Other nonspecific abnormal finding of lung field; E11.65 Type 2 diabetes mellitus with hyperglycemia; E11.51 Type 2 diabetes mellitus with diabetic peripheral angiopathy without gangrene; R79.89 Other specified abnormal findings of blood chemistry; E66.9 Obesity, unspecified; B96.20 Unspecified Escherichia coli [E. coli] as the cause of diseases classified elsewhere; D64.9 Anemia, unspecified; K52.9 Noninfective gastroenteritis and colitis, unspecified; Z93.3 Colostomy status; Z99.81 Dependence on supplemental oxygen; Z90.49 Acquired absence of other specified parts of digestive tract; Z98.51 Tubal ligation status; Z98.1 Arthrodesis status; Z87.891 Personal history of nicotine dependence; Z79.899 Other long term (current) drug therapy; Z82.49 Family history of ischemic heart disease and other diseases of the circulatory system; Z80.9 Family history of malignant neoplasm, unspecified; Z86.16 Personal history of COVID-19; Z68.31 Body mass index [BMI] 31.0-31.9, adult; Z88.2 Allergy status to sulfonamides; T38.0X5A Adverse effect of glucocorticoids and synthetic analogues, initial encounter
CPT/HCPCS: 0240U; 36415; 36416; 36556; 51701; 70450; 71045; 71275; 72170; 74018; 74022; 74177; 80048; 80053; 80061; 80074; 80076; 80202; 80306; 80307; 81003; 82103; 82104; 82105; 82140; 82533; 82550; 82728; 83036; 83516; 83550; 83605; 83690; 83735; 83880; 84100; 84484; 85025; 85379; 85610; 85730; 86038; 86225; 87040; 87045; 87046; 87081; 87086; 87324; 87427; 87449; 93005; 93010; 93306; 93975; 94640; 94660; 94664; 96365; 96366; 96367; 96368; C9113; J0692; J1650; J1720; J1815; J1940; J2405; J3370; J3475; J3480; J3490; J7050; J7620; P9047; Q9967

== ENCOUNTER 2022-10-09 18:48 | Inpatient (IN) | payer MEDICARE ==
[2022-10-09] MEDS ORDERED: Acetaminophen 650 MG Suppository PR PRN (23:52)
[2022-10-09] MEDS ORDERED: Ondansetron PF 4 MG/2 ML Vial IVP PRN (23:52)
[2022-10-09] MEDS ORDERED: Ondansetron ODT 4 MG TAB PO PRN (23:52)
[2022-10-10] MEDS ORDERED: Dextrose 50% Abboject 50 ML SYRINGE SLOW IVP PRN (00:01)
[2022-10-10] MEDS ORDERED: Dextrose 5% in Water 1,000 ML IV PRN (00:01)
[2022-10-10 01:57] LABS: Lactic Acid 2.2 mmol/L (0.5-2.2)
[2022-10-10 01:58] LABS: Hemoglobin 9.9 g/dL (12.0-16.0); Lymphocytes 8 % (21-51); MDiff Complete? YES; Mean Corpuscular HGB CONC 30.6 g/dL (32.0-36.0); Mean Corpuscular Hemoglobin 24.1 pg (27.0-31.0); Mean Corpuscular Volume 78.9 fl (78.0-98.0); Mean Platelet Volume 8.4 fL (7.4-10.4); Monocytes 6 % (0-10); Neutrophil 84 % (42-75); Platelet Count 211 10x3/uL (130-400); Platelet Morphology Comment Appears Adequate; RBC Distribution Width 15.7 % (11.5-14.5); RBC Morphology Normal; Reactive Lymphocytes 2 % (0-10); Red Blood Cell (RBC) Count 4.09 mill/uL (4.20-5.40)
[2022-10-10] MEDS: Cefepime 2 GM in Sodium Chloride 0.9% 100 ML IVPB SCH ×2 (02:44→12:08)
[2022-10-10 03:25] LABS: Anion Gap 18 mmol/L (10-20); BUN (Urea Nitrogen) 15 mg/dL (9.8-20.1); Calc. Creatinine Clearance 56 mL/min (70-130); Calcium 8.8 mg/dL (7.8-10.44); Carbon Dioxide 22 mmol/L (23-31); Chloride 94 mmol/L (98-107); Estimated GFR 52; Potassium 4.8 mmol/L (3.5-5.1); Sodium 129 mmol/L (136-145)
[2022-10-10 03:47] LABS: Glucose 410 mg/dL (80-115)
[2022-10-10] MEDS: Doxycycline 100 MG in Sodium Chloride 0.9% 100 ML IVPB SCH ×2 (04:30→14:47)
[2022-10-10] MEDS: HumaLOG 300 UNITS/3 ML VIAL SC PRN ×5 (04:42→22:13)
[2022-10-10 08:20] LABS: Magnesium 2.3 mg/dL (1.6-2.6)
[2022-10-10] MEDS: Metoprolol Tartrate 25 MG TAB PO SCH ×2 (09:27→22:01)
[2022-10-10] MEDS: methylPREDNISolone Sod Succ 40 MG VIAL IVP SCH (09:27)
[2022-10-10] MEDS: Enoxaparin Sodium 40 MG/0.4 ML SYRINGE SC SCH (09:27)
[2022-10-10] MEDS: Acetaminophen 325 MG TAB PO PRN ×2 (09:28→20:01)
[2022-10-10] MEDS ORDERED: Furosemide 40 MG TAB PO PRN (12:20)
[2022-10-10] MEDS: ALPRAZolam 0.25 MG TAB PO SCH ×2 (14:47→22:02)
[2022-10-11] MEDS: Cefepime 2 GM in Sodium Chloride 0.9% 100 ML IVPB SCH ×2 (00:27→13:41)
[2022-10-11] MEDS: Doxycycline 100 MG in Sodium Chloride 0.9% 100 ML IVPB SCH ×2 (01:58→16:25)
[2022-10-11 04:50] LABS: #Lymphocytes 1.4 thou/uL (1.20-3.40); #Neutrophils 15.4 thou/uL (1.40-6.50); %Eosinophils 0.1 % (0.0-10.0); %Lymphocytes 7.7 % (21.0-51.0); %Monocytes 5.8 % (0.0-10.0); %Neutrophils 86.4 % (42.0-75.0); Hemoglobin 9.8 g/dL (12.0-16.0); Mean Corpuscular HGB CONC 29.4 g/dL (32.0-36.0); Mean Corpuscular Hemoglobin 23.8 pg (27.0-31.0); Mean Corpuscular Volume 80.9 fl (78.0-98.0); Mean Platelet Volume 8.3 fL (7.4-10.4); Platelet Count 226 10x3/uL (130-400); RBC Distribution Width 15.7 % (11.5-14.5); Red Blood Cell (RBC) Count 4.13 mill/uL (4.20-5.40); White Blood Cell (WBC) Count 17.8 10x3/uL (4.8-10.8)
[2022-10-11 05:22] LABS: Anion Gap 13 mmol/L (10-20); BUN (Urea Nitrogen) 16 mg/dL (9.8-20.1); Calc. Creatinine Clearance 73 mL/min (70-130); Calcium 9.4 mg/dL (7.8-10.44); Carbon Dioxide 28 mmol/L (23-31); Chloride 100 mmol/L (98-107); Estimated GFR 70; Glucose 198 mg/dL (80-115); Potassium 4.3 mmol/L (3.5-5.1); Sodium 137 mmol/L (136-145)
[2022-10-11] MEDS ORDERED: Benzonatate 100 MG CAP PO PRN (09:47)
[2022-10-11] MEDS ORDERED: Simethicone Chewable 80 MG TAB PO PRN (09:50)
[2022-10-11] MEDS ORDERED: Polyethylene Glycol 3350 17 GM Packet PO PRN (09:50)
[2022-10-11] MEDS ORDERED: Sodium Chloride 0.65% Nasal 44 ML BOT EA NARE PRN (09:53)
[2022-10-11] MEDS ORDERED: guaiFENesin ER 600 MG TAB PO SCH (10:00)
[2022-10-11] MEDS ORDERED: Mometasone/Formoterol 200/5 60 PUFF INH SCH (10:00)
[2022-10-11] MEDS: methylPREDNISolone Sod Succ 40 MG VIAL IVP SCH ×4 (10:15→22:01)
[2022-10-11] MEDS: ALPRAZolam 0.25 MG TAB PO SCH ×3 (10:17→22:00)
[2022-10-11] MEDS: Metoprolol Tartrate 25 MG TAB PO SCH ×2 (10:18→22:01)
[2022-10-11] MEDS: Enoxaparin Sodium 40 MG/0.4 ML SYRINGE SC SCH (10:19)
[2022-10-11] MEDS: Acetaminophen 325 MG TAB PO PRN (10:35)
[2022-10-11] MEDS ORDERED: methylPREDNISolone Sod Succ 40 MG VIAL IVP SCH (14:00)
[2022-10-11] MEDS: Mometasone/Formoterol 200/5 60 PUFF INH SCH (19:07)
[2022-10-11] MEDS: HumaLOG 300 UNITS/3 ML VIAL SC PRN ×2 (19:21→22:05)
[2022-10-11] MEDS: guaiFENesin ER 600 MG TAB PO SCH (22:01)
[2022-10-12] MEDS: Cefepime 1 GM in Sodium Chloride 0.9% 100 ML IVPB SCH ×2 (00:55→13:08)
[2022-10-12] MEDS: Doxycycline 100 MG in Sodium Chloride 0.9% 100 ML IVPB SCH ×2 (01:28→13:54)
[2022-10-12] MEDS: HumaLOG 300 UNITS/3 ML VIAL SC PRN ×3 (05:32→21:14)
[2022-10-12] MEDS: methylPREDNISolone Sod Succ 40 MG VIAL IVP SCH ×3 (05:32→20:25)
[2022-10-12 05:47] LABS: #Lymphocytes 0.7 thou/uL (1.20-3.40); #Monocytes 0.7 thou/uL (0.11-0.59); %Eosinophils 0.2 % (0.0-10.0); %Monocytes 3.8 % (0.0-10.0); %Neutrophils 91.9 % (42.0-75.0); Mean Corpuscular Hemoglobin 23.5 pg (27.0-31.0); Mean Corpuscular Volume 81.1 fl (78.0-98.0); Mean Platelet Volume 8.6 fL (7.4-10.4); Platelet Count 224 10x3/uL (130-400); RBC Distribution Width 15.6 % (11.5-14.5); Red Blood Cell (RBC) Count 4.23 mill/uL (4.20-5.40); White Blood Cell (WBC) Count 17.4 10x3/uL (4.8-10.8)
[2022-10-12 05:48] LABS: Hemoglobin A1c 9.1 % (4.0-6.0)
[2022-10-12 06:05] LABS: Anion Gap 13 mmol/L (10-20); BUN (Urea Nitrogen) 19 mg/dL (9.8-20.1); Calc. Creatinine Clearance 71 mL/min (70-130); Calcium 9.7 mg/dL (7.8-10.44); Carbon Dioxide 28 mmol/L (23-31); Chloride 97 mmol/L (98-107); Estimated GFR 67; Glucose 329 mg/dL (80-115); Potassium 5.2 mmol/L (3.5-5.1); Sodium 133 mmol/L (136-145)
[2022-10-12] MEDS: Mometasone/Formoterol 200/5 60 PUFF INH SCH ×2 (07:07→19:10)
[2022-10-12] MEDS ORDERED: glipiZIDE 5 MG TAB PO SCH (07:30)
[2022-10-12] MEDS: Metoprolol Tartrate 25 MG TAB PO SCH ×2 (10:07→20:25)
[2022-10-12] MEDS: ALPRAZolam 0.25 MG TAB PO SCH ×3 (10:08→20:26)
[2022-10-12] MEDS: guaiFENesin ER 600 MG TAB PO SCH ×2 (10:10→20:26)
[2022-10-12] MEDS: Enoxaparin Sodium 40 MG/0.4 ML SYRINGE SC SCH (10:10)
[2022-10-12] MEDS ORDERED: NPH, Human Insulin Isophane 300 UNIT/3 ML VIAL SC SCH (14:15)
[2022-10-12] MEDS ORDERED: Polyethylene Glycol 3350 17 GM Packet PO PRN (14:21)
[2022-10-12] MEDS ORDERED: Insulin NPH Human Isophane 100 UNIT/ML (10 ML VIAL) SC SCH (15:30)
[2022-10-12] MEDS: metFORMIN 500 MG TAB PO SCH (16:40)
[2022-10-12] MEDS: glipiZIDE 5 MG TAB PO SCH (16:40)
[2022-10-12] MEDS: Nystatin 500,000 UNITS/5 ML UDCUP SSW SCH ×2 (16:40→20:25)
[2022-10-12] MEDS: Milk Of Magnesia 30 ML UDCUP PO PRN (20:25)
[2022-10-12] MEDS: Acetaminophen 325 MG TAB PO PRN (20:26)
[2022-10-13] MEDS: Cefepime 1 GM in Sodium Chloride 0.9% 100 ML IVPB SCH ×2 (00:54→13:41)
[2022-10-13] MEDS: Doxycycline 100 MG in Sodium Chloride 0.9% 100 ML IVPB SCH ×2 (03:49→14:28)
[2022-10-13 05:02] LABS: Hemoglobin 9.7 g/dL (12.0-16.0); Mean Corpuscular HGB CONC 28.7 g/dL (32.0-36.0); Mean Corpuscular Volume 80.3 fl (78.0-98.0); Mean Platelet Volume 8.2 fL (7.4-10.4); Platelet Count 262 10x3/uL (130-400); RBC Distribution Width 15.6 % (11.5-14.5); Red Blood Cell (RBC) Count 4.22 mill/uL (4.20-5.40); White Blood Cell (WBC) Count 17.3 10x3/uL (4.8-10.8)
[2022-10-13 05:10] LABS: Anion Gap 12 mmol/L (10-20); BUN (Urea Nitrogen) 24 mg/dL (9.8-20.1); Calc. Creatinine Clearance 69 mL/min (70-130); Calcium 9.1 mg/dL (7.8-10.44); Carbon Dioxide 28 mmol/L (23-31); Chloride 97 mmol/L (98-107); Estimated GFR 65; Glucose 342 mg/dL (80-115); Potassium 5.1 mmol/L (3.5-5.1); Sodium 132 mmol/L (136-145)
[2022-10-13] MEDS: Mometasone/Formoterol 200/5 60 PUFF INH SCH ×2 (05:30→18:33)
[2022-10-13 05:55] LABS: Anisocytosis SLIGHT = 6-15 cells (100X) (0-5/hpf); Band 4 % (5-11); Hypochromia SLIGHT = 6-15 cells (100X) (0-5/hpf); Lymphocytes 7 % (21-51); MDiff Complete? YES; Monocytes 1 % (0-10); Neutrophil 88 % (42-75); Platelet Morphology Comment Appears Adequate; Polychromasia SLIGHT = 2-3 cells (100X) (0-2/hpf)
[2022-10-13] MEDS: HumaLOG 300 UNITS/3 ML VIAL SC PRN ×2 (06:19→21:33)
[2022-10-13] MEDS: methylPREDNISolone Sod Succ 40 MG VIAL IVP SCH ×3 (06:19→20:37)
[2022-10-13] MEDS: ALPRAZolam 0.25 MG TAB PO SCH ×3 (09:14→20:36)
[2022-10-13] MEDS: glipiZIDE 5 MG TAB PO SCH ×2 (09:14→16:28)
[2022-10-13] MEDS: metFORMIN 500 MG TAB PO SCH ×2 (09:14→16:28)
[2022-10-13] MEDS: guaiFENesin ER 600 MG TAB PO SCH ×2 (09:15→20:36)
[2022-10-13] MEDS: Enoxaparin Sodium 40 MG/0.4 ML SYRINGE SC SCH (09:15)
[2022-10-13] MEDS: Metoprolol Tartrate 25 MG TAB PO SCH ×2 (09:15→20:36)
[2022-10-13] MEDS: Nystatin 500,000 UNITS/5 ML UDCUP SSW SCH ×4 (09:16→20:37)
[2022-10-13] MEDS: Acetaminophen 325 MG TAB PO PRN (10:59)
[2022-10-13] MEDS ORDERED: Insulin NPH Human Isophane 100 UNIT/ML (10 ML VIAL) SC SCH (13:00)
[2022-10-14] MEDS: Cefepime 1 GM in Sodium Chloride 0.9% 100 ML IVPB SCH ×2 (00:33→14:05)
[2022-10-14] MEDS: Doxycycline 100 MG in Sodium Chloride 0.9% 100 ML IVPB SCH ×2 (01:25→14:06)
[2022-10-14 04:35] LABS: #Lymphocytes 1.1 thou/uL (1.20-3.40); #Monocytes 0.8 thou/uL (0.11-0.59); #Neutrophils 13.5 thou/uL (1.40-6.50); %Basophils 0.1 % (0.0-1.0); %Eosinophils 0.3 % (0.0-10.0); %Monocytes 5.4 % (0.0-10.0); %Neutrophils 87.2 % (42.0-75.0); Hemoglobin 10.6 g/dL (12.0-16.0); Mean Corpuscular HGB CONC 28.8 g/dL (32.0-36.0); Mean Corpuscular Volume 79.9 fl (78.0-98.0); Mean Platelet Volume 8.4 fL (7.4-10.4); Platelet Count 256 10x3/uL (130-400); RBC Distribution Width 15.7 % (11.5-14.5); Red Blood Cell (RBC) Count 4.59 mill/uL (4.20-5.40); White Blood Cell (WBC) Count 15.5 10x3/uL (4.8-10.8)
[2022-10-14 04:39] LABS: Anion Gap 14 mmol/L (10-20); BUN (Urea Nitrogen) 25 mg/dL (9.8-20.1); Calc. Creatinine Clearance 80 mL/min (70-130); Calcium 9.7 mg/dL (7.8-10.44); Carbon Dioxide 28 mmol/L (23-31); Chloride 96 mmol/L (98-107); Estimated GFR 78; Glucose 237 mg/dL (80-115); Potassium 5.1 mmol/L (3.5-5.1); Sodium 133 mmol/L (136-145)
[2022-10-14] MEDS: methylPREDNISolone Sod Succ 40 MG VIAL IVP SCH ×3 (05:51→23:49)
[2022-10-14] MEDS: HumaLOG 300 UNITS/3 ML VIAL SC PRN ×3 (06:09→23:45)
[2022-10-14] MEDS: Mometasone/Formoterol 200/5 60 PUFF INH SCH ×2 (07:48→18:52)
[2022-10-14] MEDS: Nystatin 500,000 UNITS/5 ML UDCUP SSW SCH ×4 (09:22→23:48)
[2022-10-14] MEDS: Insulin NPH Human Isophane 100 UNIT/ML (10 ML VIAL) SC SCH (09:22)
[2022-10-14] MEDS: metFORMIN 500 MG TAB PO SCH ×2 (09:23→17:29)
[2022-10-14] MEDS: Metoprolol Tartrate 25 MG TAB PO SCH ×2 (09:23→23:47)
[2022-10-14] MEDS: guaiFENesin ER 600 MG TAB PO SCH ×2 (09:23→23:47)
[2022-10-14] MEDS: glipiZIDE 5 MG TAB PO SCH ×2 (09:23→17:28)
[2022-10-14] MEDS: ALPRAZolam 0.25 MG TAB PO SCH ×3 (09:23→23:46)
[2022-10-14] MEDS: Enoxaparin Sodium 40 MG/0.4 ML SYRINGE SC SCH (09:24)
[2022-10-14] MEDS: Milk Of Magnesia 30 ML UDCUP PO PRN (09:33)
[2022-10-14] MEDS: Acetaminophen 325 MG TAB PO PRN ×2 (11:27→23:48)
[2022-10-14] MEDS ORDERED: metFORMIN 500 MG TAB PO SCH (17:45)
[2022-10-14] MEDS: Doxycycline 100 MG CAP PO SCH (23:47)
[2022-10-15] MEDS: Cefepime 1 GM in Sodium Chloride 0.9% 100 ML IVPB SCH ×2 (01:36→14:56)
[2022-10-15] MEDS: Metoprolol Tartrate 25 MG TAB PO SCH ×2 (08:43→21:19)
[2022-10-15] MEDS: methylPREDNISolone Sod Succ 40 MG VIAL IVP SCH ×3 (08:43→21:20)
[2022-10-15] MEDS: metFORMIN 500 MG TAB PO SCH ×2 (08:44→17:36)
[2022-10-15] MEDS: guaiFENesin ER 600 MG TAB PO SCH ×2 (08:44→21:19)
[2022-10-15] MEDS: Doxycycline 100 MG CAP PO SCH ×2 (08:44→21:19)
[2022-10-15] MEDS: glipiZIDE 5 MG TAB PO SCH ×2 (08:45→17:36)
[2022-10-15] MEDS: Furosemide 20 MG TAB PO SCH (08:45)
[2022-10-15] MEDS: Enoxaparin Sodium 40 MG/0.4 ML SYRINGE SC SCH (08:45)
[2022-10-15] MEDS: Insulin NPH Human Isophane 100 UNIT/ML (10 ML VIAL) SC SCH (08:45)
[2022-10-15] MEDS: Nystatin 500,000 UNITS/5 ML UDCUP SSW SCH ×4 (08:49→21:19)
[2022-10-15] MEDS: ALPRAZolam 0.25 MG TAB PO SCH ×3 (08:49→21:19)
[2022-10-15] MEDS: Mometasone/Formoterol 200/5 60 PUFF INH SCH ×2 (08:53→18:35)
[2022-10-15] MEDS ORDERED: Ketoconazole 2% Cream 15 gm Tube TOP SCH (09:00)
[2022-10-15] MEDS ORDERED: Nystatin Powder 15 GM BOT TOP SCH ×2 (11:00→21:00)
[2022-10-15 11:27] VITALS: BMI 29.4
[2022-10-15] MEDS: HumaLOG 300 UNITS/3 ML VIAL SC PRN ×2 (11:40→21:21)
[2022-10-15] MEDS ORDERED: Clotrimazole 1 % Cream 30 GM TUBE TOP SCH (12:00)
[2022-10-16] MEDS: Cefepime 1 GM in Sodium Chloride 0.9% 100 ML IVPB SCH (01:16)
[2022-10-16] MEDS: HumaLOG 300 UNITS/3 ML VIAL SC PRN (05:32)
[2022-10-16] MEDS: Mometasone/Formoterol 200/5 60 PUFF INH SCH (06:45)
[2022-10-16] MEDS ORDERED: predniSONE 20 MG TAB PO SCH (08:00)
[2022-10-16] MEDS: Nystatin 500,000 UNITS/5 ML UDCUP SSW SCH (08:27)
[2022-10-16] MEDS: Furosemide 20 MG TAB PO SCH (08:27)
[2022-10-16] MEDS: Metoprolol Tartrate 25 MG TAB PO SCH (08:27)
[2022-10-16] MEDS: ALPRAZolam 0.25 MG TAB PO SCH (08:27)
[2022-10-16] MEDS: glipiZIDE 5 MG TAB PO SCH (08:28)
[2022-10-16] MEDS: Doxycycline 100 MG CAP PO SCH (08:28)
[2022-10-16] MEDS: guaiFENesin ER 600 MG TAB PO SCH (08:28)
[2022-10-16] MEDS: metFORMIN 500 MG TAB PO SCH (08:28)
[2022-10-16] MEDS: Insulin NPH Human Isophane 100 UNIT/ML (10 ML VIAL) SC SCH (08:29)
[2022-10-16 12:20] VITALS: BP 150/85; TEMP 97.4
== END 2022-10-16 12:29 | disposition home or self-care (01) | DRG 871 ==
LOC: 2NO 18:48 → T4-A 10-15 00:43
PROVIDERS: ADMIT Internal Medicine; ATTEND Internal Medicine
DX: A41.50 Gram-negative sepsis, unspecified (principal); J15.6 Pneumonia due to other Gram-negative bacteria; J96.21 Acute and chronic respiratory failure with hypoxia; J44.1 Chronic obstructive pulmonary disease with (acute) exacerbation; J44.0 Chronic obstructive pulmonary disease with (acute) lower respiratory infection; E87.20 Acidosis, unspecified; E87.1 Hypo-osmolality and hyponatremia; I50.22 Chronic systolic (congestive) heart failure; R65.20 Severe sepsis without septic shock; D53.9 Nutritional anemia, unspecified; E11.22 Type 2 diabetes mellitus with diabetic chronic kidney disease; E11.65 Type 2 diabetes mellitus with hyperglycemia; T38.0X5A Adverse effect of glucocorticoids and synthetic analogues, initial encounter; E11.51 Type 2 diabetes mellitus with diabetic peripheral angiopathy without gangrene; D50.9 Iron deficiency anemia, unspecified; E87.5 Hyperkalemia; Z99.81 Dependence on supplemental oxygen; Z90.49 Acquired absence of other specified parts of digestive tract; Z93.3 Colostomy status; Z88.2 Allergy status to sulfonamides; Z79.899 Other long term (current) drug therapy; Z79.84 Long term (current) use of oral hypoglycemic drugs; Z79.52 Long term (current) use of systemic steroids; Z98.1 Arthrodesis status; Z87.891 Personal history of nicotine dependence
CPT/HCPCS: 36415; 36416; 80048; 83036; 83605; 83735; 85025; J0692; J1650; J1815; J2920; J3490; J7512; J7620

== ENCOUNTER 2023-02-01 23:30 | Inpatient (IN) | payer MEDICARE, SELFPAY ==
[2023-02-02 01:21] LABS: Actual Bicarbonate (HCO3v) 22 mEq/L (22-28); Analyzer IN Cardio ER; Base Excess -3.4 mEq/L (-2.0 to +3.0); Calcium, Ionized (venous) 0.98 mmol/L (1.16-1.32); Chloride (VBG) 98 mmol/L (98-106); Hemoglobin (Hb) 8.1 g/dL (11.7-16.0); Potassium (VBG) 4.36 mmol/L (3.70-5.30); Sodium 132.1 mmol/L (133-146); pH (venous) 7.35 (7.32-7.43)
[2023-02-02 01:38] LABS: INR-International Normal Ratio 1.2; PTT 39.1 sec (22.9-36.1); Prothrombin Time 15.7 sec (12.0-14.7)
[2023-02-02 01:47] LABS: ALT (SGPT) 16 U/L (8-55); AST (SGOT) 13 U/L (5-34); Albumin 3.3 g/dL (3.4-4.8); Alkaline Phosphatase 104 U/L (40-110); Anion Gap 17 mmol/L (10-20); BUN (Urea Nitrogen) 19 mg/dL (9.8-20.1); Bilirubin, Total 0.4 mg/dL (0.2-1.2); Calc. Creatinine Clearance 0 mL/min (70-130); Calcium 8.1 mg/dL (7.8-10.44); Carbon Dioxide 18 mmol/L (23-31); Chloride 99 mmol/L (98-107); Estimated GFR 46; Globulin 3.1 g/dL (2.4-3.5); Glucose 232 mg/dL (80-115); Potassium 4.4 mmol/L (3.5-5.1); Protein, Total 6.4 g/dL (5.8-8.1); Sodium 130 mmol/L (136-145)
[2023-02-02] MEDS ORDERED: Ondansetron PF 4 MG/2 ML Vial IVP PRN (02:30)
[2023-02-02] MEDS ORDERED: Acetaminophen 325 MG TAB PO PRN (02:30)
[2023-02-02] MEDS ORDERED: Ondansetron ODT 4 MG TAB SL PRN (02:30)
[2023-02-02] MEDS ORDERED: Dextrose 5% in Water 1,000 ML IV PRN (03:10)
[2023-02-02] MEDS ORDERED: Dextrose 50% Abboject 50 ML SYRINGE SLOW IVP PRN (03:10)
[2023-02-02] MEDS ORDERED: Acetaminophen 650 MG Suppository PR PRN (03:10)
[2023-02-02] MEDS ORDERED: Electrolyte Replacement Protocol FS SCH (03:30)
[2023-02-02 04:27] LABS: Analyzer IN Cardio ER; Base Excess (BEa) -5.8 mEq/L (-2.0 to +3.0); Calcium, Ionized (arterial) 1.14 mmol/L (1.12-1.30); Carboxyhemoglobin (COHb) 1.1 gm% (0.0-3.0); Hemoglobin (Hb) 7.4 g/dL (12.0-16.0); O2 Tension (PaO2), arterial 79.7 mmHg (> 80.0); Potassium - ABG Lab 4.16 mmol/L (3.70-5.30); pH, Arterial 7.31 (7.35-7.45)
[2023-02-02 04:30] LABS: Puncture Site LBA
[2023-02-02 04:55] VITALS: BMI 29.5
[2023-02-02 04:56] LABS: #Lymphocytes 0.6 thou/uL (1.20-3.40); #Monocytes 0.2 thou/uL (0.11-0.59); #Neutrophils 10.4 thou/uL (1.40-6.50); %Basophils 0.1 % (0.0-1.0); %Eosinophils 0.3 % (0.0-10.0); %Lymphocytes 5.1 % (21.0-51.0); %Monocytes 2.1 % (0.0-10.0); %Neutrophils 92.4 % (42.0-75.0); Anisocytosis SLIGHT = 6-15 cells (100X) (0-5/hpf); Band 1 % (5-11); Hemoglobin 6.8 g/dL (12.0-16.0); Hypochromia SLIGHT = 6-15 cells (100X) (0-5/hpf); Lymphocytes 3 % (21-51); MDiff Complete? YES; Mean Corpuscular HGB CONC 27.9 g/dL (32.0-36.0); Mean Corpuscular Hemoglobin 19.7 pg (27.0-31.0); Mean Corpuscular Volume 70.5 fl (78.0-98.0); Mean Platelet Volume 8.5 fL (7.4-10.4); Microcytosis SLIGHT = 6-15 cells (100X) (0-5/hpf); Neutrophil 96 % (42-75); Ovalocytes SLIGHT = 2-5 cells (100X) (0-1/hpf); Platelet Count 355 10x3/uL (130-400); Platelet Morphology Comment Appears Adequate; RBC Distribution Width 17.9 % (11.5-14.5); Red Blood Cell (RBC) Count 3.45 mill/uL (4.20-5.40); Tear Drops SLIGHT = 2-5 cells (100X) (0-1/hpf); White Blood Cell (WBC) Count 11.3 10x3/uL (4.8-10.8)
[2023-02-02 05:29] LABS: Magnesium 2.2 mg/dL (1.6-2.6)
[2023-02-02 05:34] LABS: Troponin I Less than 0.010 ng/mL (< 0.028)
[2023-02-02] MEDS ORDERED: Vancomycin 1.5 GRAM/300 ML BAG 1.5 GM in Premix Bag 1 BAG IVPB SCH (05:45)
[2023-02-02 07:32] LABS: SARS-CoV-2 NAA Rapid Test Not Detected (NotDetected)
[2023-02-02 08:36] LABS: Troponin I Less than 0.010 ng/mL (< 0.028)
[2023-02-02] MEDS ORDERED: Cefepime 2 GM in Sodium Chloride 0.9% 100 ML IVPB SCH (09:00)
[2023-02-02] MEDS ORDERED: VANCOMYCIN 1.25 GM/250 ML BAG IVPB SCH (09:00)
[2023-02-02 09:01] LABS: Reticulocyte Count 2.2 % (0.5-1.5)
[2023-02-02] MEDS ORDERED: Cefepime 2 GM VIAL ONE (09:40)
[2023-02-02] MEDS ORDERED: Hydrocortisone Sod Succ/PF 100 mg/2 ml Vial ONE (10:56)
[2023-02-02] MEDS: Hydrocortisone Sod Succ/PF 100 mg/2 ml Vial IVP SCH ×2 (11:02→21:04)
[2023-02-02 13:09] LABS: Bilirubin Negative (Negative); Blood, Urine Negative (Negative); Clarity Clear (Clear); Glucose, Urine (Dipstick) 200 mg/dL (Negative); Ketone, Urine 10 mg/dL (Negative); Leukocyte Negative Leu/uL (Negative); Nitrite Negative (Negative); Protein, Urine (Dipstick) 10 mg/dL (Neg-Trace); Specific Gravity, Urine 1.014 (1.002-1.036); Urobilinogen Normal mg/dL (Less than 2)
[2023-02-02 16:14] LABS: Hemoglobin 8.7 g/dL (12.0-16.0)
[2023-02-02 16:41] LABS: Legionella Urinary Ag Negative (Negative); Strep pneumo Urine Ag NEGATIVE (NEGATIVE)
[2023-02-02] MEDS: HumaLOG 300 UNITS/3 ML VIAL SC PRN ×2 (18:41→21:05)
[2023-02-02] MEDS: Azithromycin 500 MG in Sodium Chloride 0.9% 250 ML 250 ML IVPB SCH (21:04)
[2023-02-02] MEDS: cefTRIAXone\\ROCEPHIN 2 GM in Sodium Chloride 0.9% 100 ML IVPB SCH (21:04)
[2023-02-02] MEDS: ALPRAZolam 0.25 MG TAB PO SCH (21:04)
[2023-02-02] MEDS: Famotidine 20 MG TAB PO SCH (21:04)
[2023-02-03] MEDS: HumaLOG 300 UNITS/3 ML VIAL SC PRN ×3 (00:36→12:59)
[2023-02-03 04:56] LABS: #Eosinphils 0.1 thou/uL (0.0-0.7); #Lymphocytes 0.8 thou/uL (1.20-3.40); #Monocytes 0.9 thou/uL (0.11-0.59); #Neutrophils 13.1 thou/uL (1.40-6.50); %Eosinophils 0.4 % (0.0-10.0); %Lymphocytes 5.5 % (21.0-51.0); %Monocytes 6.2 % (0.0-10.0); %Neutrophils 87.9 % (42.0-75.0); Hemoglobin 7.6 g/dL (12.0-16.0); Mean Corpuscular HGB CONC 29.5 g/dL (32.0-36.0); Mean Corpuscular Hemoglobin 21.6 pg (27.0-31.0); Platelet Count 232 10x3/uL (130-400); RBC Distribution Width 19.6 % (11.5-14.5); White Blood Cell (WBC) Count 14.9 10x3/uL (4.8-10.8)
[2023-02-03 05:09] LABS: ALT (SGPT) 13 U/L (8-55); AST (SGOT) 10 U/L (5-34); Albumin 3.2 g/dL (3.4-4.8); Alkaline Phosphatase 86 U/L (40-110); Anion Gap 12 mmol/L (10-20); BUN (Urea Nitrogen) 21 mg/dL (9.8-20.1); Bilirubin, Total 0.3 mg/dL (0.2-1.2); Calc. Creatinine Clearance 63 mL/min (70-130); Calcium 8.5 mg/dL (7.8-10.44); Carbon Dioxide 24 mmol/L (23-31); Chloride 102 mmol/L (98-107); Estimated GFR 58; Globulin 2.9 g/dL (2.4-3.5); Glucose 232 mg/dL (80-115); Phosphorus 2.3 mg/dL (2.3-4.7); Potassium 4.3 mmol/L (3.5-5.1); Protein, Total 6.1 g/dL (5.8-8.1); Sodium 134 mmol/L (136-145)
[2023-02-03 05:23] LABS: Vitamin D, 25 Hydroxy 8.2 ng/ml (> 30.0)
[2023-02-03] MEDS: Hydrocortisone Sod Succ/PF 100 mg/2 ml Vial IVP SCH ×2 (05:51→14:34)
[2023-02-03] MEDS: HYDROcodone/Acetaminophen 5/325 mg Tablet PO PRN (05:56)
[2023-02-03] MEDS: Ipratropium/Albuterol 3 ML NEB NEB PRN ×2 (06:39→20:01)
[2023-02-03] MEDS ORDERED: Vancomycin 1.5 GRAM/300 ML BAG 1.5 GM in Premix Bag 1 BAG IVPB SCH (08:00)
[2023-02-03] MEDS: Famotidine 20 MG TAB PO SCH ×2 (08:34→20:39)
[2023-02-03] MEDS: ALPRAZolam 0.25 MG TAB PO SCH ×3 (08:34→20:39)
[2023-02-03] MEDS: DULoxetine 20 MG CAP PO SCH (08:35)
[2023-02-03] MEDS ORDERED: Hydrocortisone Sod Succ/PF 100 mg/2 ml Vial IVP SCH ×2 (14:45)
[2023-02-03] MEDS: metFORMIN 500 MG TAB PO SCH (17:08)
[2023-02-03] MEDS: Ferrous Sulfate 325 MG TAB PO SCH (17:08)
[2023-02-03] MEDS: Metoprolol Tartrate 25 MG TAB PO SCH (20:39)
[2023-02-03] MEDS: cefTRIAXone\\ROCEPHIN 2 GM in Sodium Chloride 0.9% 100 ML IVPB SCH (20:46)
[2023-02-03] MEDS: Azithromycin 500 MG in Sodium Chloride 0.9% 250 ML 250 ML IVPB SCH (22:09)
[2023-02-04] MEDS: Hydrocortisone Sod Succ/PF 100 mg/2 ml Vial IVP SCH ×3 (00:15→15:09)
[2023-02-04 04:33] LABS: #Eosinphils 0.1 thou/uL (0.0-0.7); #Lymphocytes 1.2 thou/uL (1.20-3.40); #Neutrophils 9.2 thou/uL (1.40-6.50); %Basophils 0.1 % (0.0-1.0); %Eosinophils 0.5 % (0.0-10.0); %Lymphocytes 10.2 % (21.0-51.0); %Monocytes 8.4 % (0.0-10.0); %Neutrophils 80.9 % (42.0-75.0); Hemoglobin 7.5 g/dL (12.0-16.0); Mean Corpuscular HGB CONC 29.3 g/dL (32.0-36.0); Mean Corpuscular Hemoglobin 21.5 pg (27.0-31.0); Mean Corpuscular Volume 73.3 fl (78.0-98.0); Mean Platelet Volume 9.5 fL (7.4-10.4); Platelet Count 224 10x3/uL (130-400); RBC Distribution Width 20.2 % (11.5-14.5); Red Blood Cell (RBC) Count 3.48 mill/uL (4.20-5.40); White Blood Cell (WBC) Count 11.4 10x3/uL (4.8-10.8)
[2023-02-04 04:51] LABS: Anion Gap 13 mmol/L (10-20); BUN (Urea Nitrogen) 17 mg/dL (9.8-20.1); Calc. Creatinine Clearance 70 mL/min (70-130); Calcium 8.8 mg/dL (7.8-10.44); Carbon Dioxide 22 mmol/L (23-31); Chloride 103 mmol/L (98-107); Estimated GFR 66; Glucose 183 mg/dL (80-115); Potassium 4.2 mmol/L (3.5-5.1); Sodium 134 mmol/L (136-145)
[2023-02-04] MEDS: HumaLOG 300 UNITS/3 ML VIAL SC PRN (06:06)
[2023-02-04 07:17] LABS: Vancomycin, Trough 23.7 ug/mL
[2023-02-04] MEDS ORDERED: VANCOMYCIN 1.25 GM/250 ML BAG 1.25 GM in Premix Bag 1 BAG IVPB SCH (09:00)
[2023-02-04] MEDS: Furosemide 20 MG TAB PO SCH (09:01)
[2023-02-04] MEDS: ALPRAZolam 0.25 MG TAB PO SCH ×3 (09:01→20:35)
[2023-02-04] MEDS: Ferrous Sulfate 325 MG TAB PO SCH ×2 (09:01→16:18)
[2023-02-04] MEDS: DULoxetine 20 MG CAP PO SCH (09:02)
[2023-02-04] MEDS: metFORMIN 500 MG TAB PO SCH ×2 (09:02→16:18)
[2023-02-04] MEDS: Famotidine 20 MG TAB PO SCH ×2 (09:02→20:35)
[2023-02-04] MEDS: Metoprolol Tartrate 25 MG TAB PO SCH ×2 (09:02→20:35)
[2023-02-04] MEDS: Ipratropium/Albuterol 3 ML NEB NEB PRN ×2 (10:55→19:08)
[2023-02-04] MEDS ORDERED: predniSONE 20 MG TAB PO SCH (17:15)
[2023-02-04] MEDS: cefTRIAXone\\ROCEPHIN 2 GM in Sodium Chloride 0.9% 100 ML IVPB SCH (20:35)
[2023-02-04] MEDS: Azithromycin 500 MG in Sodium Chloride 0.9% 250 ML 250 ML IVPB SCH (21:26)
[2023-02-05] MEDS: Ipratropium/Albuterol 3 ML NEB NEB PRN ×2 (00:25→16:21)
[2023-02-05] MEDS: HumaLOG 300 UNITS/3 ML VIAL SC PRN ×3 (05:02→23:44)
[2023-02-05 05:51] LABS: #Basophils 0.1 thou/uL (0.0-0.2); #Lymphocytes 0.6 thou/uL (1.20-3.40); #Monocytes 0.7 thou/uL (0.11-0.59); #Neutrophils 6.4 thou/uL (1.40-6.50); %Eosinophils 0.5 % (0.0-10.0); %Monocytes 8.4 % (0.0-10.0); %Neutrophils 82.1 % (42.0-75.0); Hemoglobin 7.7 g/dL (12.0-16.0); Mean Corpuscular HGB CONC 28.5 g/dL (32.0-36.0); Mean Corpuscular Hemoglobin 21.1 pg (27.0-31.0); Mean Platelet Volume 9.6 fL (7.4-10.4); Platelet Count 199 10x3/uL (130-400); RBC Distribution Width 21.2 % (11.5-14.5); Red Blood Cell (RBC) Count 3.66 mill/uL (4.20-5.40); White Blood Cell (WBC) Count 7.8 10x3/uL (4.8-10.8)
[2023-02-05 05:58] LABS: Anion Gap 14 mmol/L (10-20); BUN (Urea Nitrogen) 19 mg/dL (9.8-20.1); Calc. Creatinine Clearance 61 mL/min (70-130); Calcium 8.9 mg/dL (7.8-10.44); Carbon Dioxide 24 mmol/L (23-31); Chloride 103 mmol/L (98-107); Estimated GFR 57; Glucose 246 mg/dL (80-115); Potassium 4.3 mmol/L (3.5-5.1); Sodium 137 mmol/L (136-145)
[2023-02-05] MEDS: ALPRAZolam 0.25 MG TAB PO SCH ×3 (11:06→20:16)
[2023-02-05] MEDS: Furosemide 20 MG TAB PO SCH (11:08)
[2023-02-05] MEDS: metFORMIN 500 MG TAB PO SCH ×2 (11:08→16:43)
[2023-02-05] MEDS: DULoxetine 20 MG CAP PO SCH (11:09)
[2023-02-05] MEDS: predniSONE 20 MG TAB PO SCH (11:09)
[2023-02-05] MEDS: Ferrous Sulfate 325 MG TAB PO SCH ×2 (11:11→16:43)
[2023-02-05] MEDS: Metoprolol Tartrate 25 MG TAB PO SCH ×2 (11:11→20:15)
[2023-02-05] MEDS: Famotidine 20 MG TAB PO SCH ×2 (11:12→20:15)
[2023-02-05] MEDS: Budesonide 0.5 MG/2 ML NEB NEB SCH (19:01)
[2023-02-05] MEDS: Sacubitril 24MG/Valsartan 26 MG TAB PO SCH (20:15)
[2023-02-05] MEDS: cefTRIAXone\\ROCEPHIN 2 GM in Sodium Chloride 0.9% 100 ML IVPB SCH (20:16)
[2023-02-05] MEDS: Azithromycin 500 MG in Sodium Chloride 0.9% 250 ML 250 ML IVPB SCH (23:38)
[2023-02-06] MEDS: ALPRAZolam 0.25 MG TAB PO SCH ×3 (09:29→23:15)
[2023-02-06] MEDS: DULoxetine 20 MG CAP PO SCH (09:30)
[2023-02-06] MEDS: metFORMIN 500 MG TAB PO SCH ×2 (09:30→17:04)
[2023-02-06] MEDS: Metoprolol Tartrate 25 MG TAB PO SCH ×2 (09:31→20:39)
[2023-02-06] MEDS: Sacubitril 24MG/Valsartan 26 MG TAB PO SCH ×2 (09:31→20:39)
[2023-02-06] MEDS: Ferrous Sulfate 325 MG TAB PO SCH ×2 (09:31→17:04)
[2023-02-06] MEDS: Famotidine 20 MG TAB PO SCH ×2 (09:31→20:39)
[2023-02-06] MEDS: predniSONE 20 MG TAB PO SCH (09:33)
[2023-02-06] MEDS: Furosemide 20 MG TAB PO SCH (09:33)
[2023-02-06 10:24] LABS: Hemoglobin 8.3 g/dL (12.0-16.0); Platelet Count 207 10x3/uL (130-400)
[2023-02-06] MEDS: Budesonide 0.5 MG/2 ML NEB NEB SCH ×2 (10:26→17:17)
[2023-02-06] MEDS: HumaLOG 300 UNITS/3 ML VIAL SC PRN (18:16)
[2023-02-06] MEDS: Ipratropium/Albuterol 3 ML NEB NEB SCH (19:01)
[2023-02-06] MEDS: guaiFENesin ER 600 MG TAB PO SCH (20:39)
[2023-02-06] MEDS: cefTRIAXone\\ROCEPHIN 2 GM in Sodium Chloride 0.9% 100 ML IVPB SCH (20:39)
[2023-02-06] MEDS: Azithromycin 500 MG in Sodium Chloride 0.9% 250 ML 250 ML IVPB SCH (21:46)
[2023-02-06] MEDS ORDERED: ALPRAZolam 0.25 MG TAB PO SCH (23:15)
[2023-02-07] MEDS: Ipratropium/Albuterol 3 ML NEB NEB SCH ×4 (03:28→19:04)
[2023-02-07 05:10] LABS: Mean Corpuscular HGB CONC 29.2 g/dL (32.0-36.0); Mean Corpuscular Hemoglobin 21.7 pg (27.0-31.0); Mean Corpuscular Volume 74.2 fl (78.0-98.0); Mean Platelet Volume 9.6 fL (7.4-10.4); Platelet Count 226 10x3/uL (130-400); Red Blood Cell (RBC) Count 4.15 mill/uL (4.20-5.40); White Blood Cell (WBC) Count 11.3 10x3/uL (4.8-10.8)
[2023-02-07 05:17] LABS: ALT (SGPT) 17 U/L (8-55); AST (SGOT) 22 U/L (5-34); Albumin 3.3 g/dL (3.4-4.8); Alkaline Phosphatase 91 U/L (40-110); Anion Gap 12 mmol/L (10-20); BUN (Urea Nitrogen) 16 mg/dL (9.8-20.1); Bilirubin, Total 0.2 mg/dL (0.2-1.2); Calc. Creatinine Clearance 68 mL/min (70-130); Calcium 8.9 mg/dL (7.8-10.44); Carbon Dioxide 29 mmol/L (23-31); Chloride 100 mmol/L (98-107); Estimated GFR 66; Globulin 2.8 g/dL (2.4-3.5); Glucose 124 mg/dL (80-115); Magnesium 1.4 mg/dL (1.6-2.6); Phosphorus 2.5 mg/dL (2.3-4.7); Potassium 3.8 mmol/L (3.5-5.1); Protein, Total 6.1 g/dL (5.8-8.1); Sodium 137 mmol/L (136-145)
[2023-02-07 05:39] LABS: #Lymphocytes 1.7 thou/uL (1.20-3.40); #Monocytes 1.1 thou/uL (0.11-0.59); #Neutrophils 8.5 thou/uL (1.40-6.50); %Basophils 0.1 % (0.0-1.0); %Eosinophils 0.2 % (0.0-10.0); %Lymphocytes 15.2 % (21.0-51.0); %Monocytes 9.7 % (0.0-10.0); %Neutrophils 74.8 % (42.0-75.0); Anisocytosis SLIGHT = 6-15 cells (100X) (0-5/hpf); Hypochromia SLIGHT = 6-15 cells (100X) (0-5/hpf); MDiff Complete? YES; Microcytosis SLIGHT = 6-15 cells (100X) (0-5/hpf)
[2023-02-07] MEDS ORDERED: Magnesium Sulfate In Water 4 GM in Premix Bag 1 BAG IVPB SCH (06:00)
[2023-02-07] MEDS: Budesonide 0.5 MG/2 ML NEB NEB SCH ×2 (07:25→19:04)
[2023-02-07] MEDS: Sacubitril 24MG/Valsartan 26 MG TAB PO SCH ×2 (08:58→21:51)
[2023-02-07] MEDS: predniSONE 20 MG TAB PO SCH (08:58)
[2023-02-07] MEDS: Furosemide 20 MG TAB PO SCH (08:58)
[2023-02-07] MEDS: ALPRAZolam 0.25 MG TAB PO SCH ×3 (08:58→21:51)
[2023-02-07] MEDS: Metoprolol Tartrate 25 MG TAB PO SCH ×2 (08:58→21:52)
[2023-02-07] MEDS: metFORMIN 500 MG TAB PO SCH ×2 (08:59→16:12)
[2023-02-07] MEDS: Famotidine 20 MG TAB PO SCH ×2 (08:59→21:52)
[2023-02-07] MEDS: guaiFENesin ER 600 MG TAB PO SCH ×2 (08:59→21:52)
[2023-02-07] MEDS: Ferrous Sulfate 325 MG TAB PO SCH ×2 (08:59→16:12)
[2023-02-07] MEDS: DULoxetine 20 MG CAP PO SCH (08:59)
[2023-02-07] MEDS: HYDROcodone/Acetaminophen 5/325 mg Tablet PO PRN (09:01)
[2023-02-07] MEDS: Doxycycline 100 MG in Sodium Chloride 0.9% 100 ML IVPB SCH ×2 (11:41→22:21)
[2023-02-07] MEDS: HumaLOG 300 UNITS/3 ML VIAL SC PRN ×3 (14:14→21:51)
[2023-02-07] MEDS: cefTRIAXone\\ROCEPHIN 2 GM in Sodium Chloride 0.9% 100 ML IVPB SCH (21:45)
[2023-02-08] MEDS ORDERED: Nystatin 500,000 UNITS/5 ML UDCUP SSW SCH (00:30)
[2023-02-08] MEDS: Ipratropium/Albuterol 3 ML NEB NEB SCH ×4 (00:55→18:47)
[2023-02-08 04:32] LABS: #Lymphocytes 1.5 thou/uL (1.20-3.40); #Monocytes 0.9 thou/uL (0.11-0.59); #Neutrophils 8.8 thou/uL (1.40-6.50); %Eosinophils 0.1 % (0.0-10.0); %Lymphocytes 13.1 % (21.0-51.0); %Monocytes 7.6 % (0.0-10.0); %Neutrophils 79.1 % (42.0-75.0); Hemoglobin 8.6 g/dL (12.0-16.0); Mean Corpuscular HGB CONC 29.7 g/dL (32.0-36.0); Mean Corpuscular Hemoglobin 22.1 pg (27.0-31.0); Mean Corpuscular Volume 74.3 fl (78.0-98.0); Mean Platelet Volume 9.6 fL (7.4-10.4); Platelet Count 222 10x3/uL (130-400); RBC Distribution Width 21.4 % (11.5-14.5); Red Blood Cell (RBC) Count 3.87 mill/uL (4.20-5.40); White Blood Cell (WBC) Count 11.1 10x3/uL (4.8-10.8)
[2023-02-08 04:46] LABS: ALT (SGPT) 18 U/L (8-55); AST (SGOT) 12 U/L (5-34); Albumin 3.2 g/dL (3.4-4.8); Alkaline Phosphatase 81 U/L (40-110); Anion Gap 12 mmol/L (10-20); BUN (Urea Nitrogen) 15 mg/dL (9.8-20.1); Bilirubin, Total 0.2 mg/dL (0.2-1.2); Calc. Creatinine Clearance 66 mL/min (70-130); Calcium 8.9 mg/dL (7.8-10.44); Carbon Dioxide 28 mmol/L (23-31); Chloride 100 mmol/L (98-107); Estimated GFR 66; Globulin 2.4 g/dL (2.4-3.5); Glucose 169 mg/dL (80-115); Protein, Total 5.6 g/dL (5.8-8.1); Sodium 136 mmol/L (136-145)
[2023-02-08] MEDS: Budesonide 0.5 MG/2 ML NEB NEB SCH ×2 (07:33→18:47)
[2023-02-08] MEDS ORDERED: Nystatin 100,000 Units/mL UDCUP SSW SCH (09:00)
[2023-02-08] MEDS: Sacubitril 24MG/Valsartan 26 MG TAB PO SCH ×2 (09:41→20:22)
[2023-02-08] MEDS: Metoprolol Tartrate 25 MG TAB PO SCH ×2 (09:41→20:23)
[2023-02-08] MEDS: DULoxetine 20 MG CAP PO SCH (09:41)
[2023-02-08] MEDS: predniSONE 20 MG TAB PO SCH (09:41)
[2023-02-08] MEDS: guaiFENesin ER 600 MG TAB PO SCH ×2 (09:41→20:20)
[2023-02-08] MEDS: Famotidine 20 MG TAB PO SCH ×2 (09:41→20:24)
[2023-02-08] MEDS: ALPRAZolam 0.25 MG TAB PO SCH ×3 (09:42→20:23)
[2023-02-08] MEDS: Ferrous Sulfate 325 MG TAB PO SCH ×2 (09:42→16:52)
[2023-02-08] MEDS: metFORMIN 500 MG TAB PO SCH ×2 (09:42→16:52)
[2023-02-08] MEDS: Nystatin 500,000 UNITS/5 ML UDCUP SSW SCH ×4 (09:42→20:26)
[2023-02-08] MEDS: Furosemide 20 MG TAB PO SCH (09:44)
[2023-02-08] MEDS: Doxycycline 100 MG in Sodium Chloride 0.9% 100 ML IVPB SCH (11:35)
[2023-02-08] MEDS: HumaLOG 300 UNITS/3 ML VIAL SC PRN (16:53)
[2023-02-08] MEDS: Doxycycline 100 MG CAP PO SCH (20:21)
[2023-02-08] MEDS: Cefdinir 300 MG CAP PO SCH (20:21)
[2023-02-09] MEDS: Ipratropium/Albuterol 3 ML NEB NEB SCH ×3 (01:10→12:41)
[2023-02-09 05:29] LABS: #Lymphocytes 2.5 thou/uL (1.20-3.40); #Monocytes 0.9 thou/uL (0.11-0.59); #Neutrophils 8.5 thou/uL (1.40-6.50); %Eosinophils 0.3 % (0.0-10.0); %Monocytes 7.6 % (0.0-10.0); %Neutrophils 71.1 % (42.0-75.0); Hemoglobin 8.7 g/dL (12.0-16.0); Mean Corpuscular HGB CONC 29.6 g/dL (32.0-36.0); Mean Corpuscular Hemoglobin 22.1 pg (27.0-31.0); Mean Corpuscular Volume 74.7 fl (78.0-98.0); Mean Platelet Volume 9.4 fL (7.4-10.4); Platelet Count 245 10x3/uL (130-400); RBC Distribution Width 21.2 % (11.5-14.5); Red Blood Cell (RBC) Count 3.95 mill/uL (4.20-5.40); White Blood Cell (WBC) Count 11.9 10x3/uL (4.8-10.8)
[2023-02-09 05:50] LABS: Anion Gap 12 mmol/L (10-20); BUN (Urea Nitrogen) 13 mg/dL (9.8-20.1); Calc. Creatinine Clearance 66 mL/min (70-130); Calcium 8.9 mg/dL (7.8-10.44); Carbon Dioxide 28 mmol/L (23-31); Chloride 101 mmol/L (98-107); Estimated GFR 69; Glucose 222 mg/dL (80-115); Potassium 3.3 mmol/L (3.5-5.1); Sodium 138 mmol/L (136-145)
[2023-02-09] MEDS ORDERED: Potassium Chloride 20 MEQ TAB PO SCH (08:00)
[2023-02-09] MEDS ORDERED: predniSONE 20 MG TAB PO SCH (08:00)
[2023-02-09] MEDS: Budesonide 0.5 MG/2 ML NEB NEB SCH (08:03)
[2023-02-09] MEDS ORDERED: Electrolyte Replacement Protocol 1 EACH FS SCH (08:08)
[2023-02-09] MEDS: Ferrous Sulfate 325 MG TAB PO SCH ×2 (08:44→16:22)
[2023-02-09] MEDS: ALPRAZolam 0.25 MG TAB PO SCH ×2 (08:44→14:21)
[2023-02-09] MEDS: DULoxetine 20 MG CAP PO SCH (08:44)
[2023-02-09] MEDS: Cefdinir 300 MG CAP PO SCH (08:44)
[2023-02-09] MEDS: guaiFENesin ER 600 MG TAB PO SCH (08:45)
[2023-02-09] MEDS: Famotidine 20 MG TAB PO SCH (08:45)
[2023-02-09] MEDS: metFORMIN 500 MG TAB PO SCH ×2 (08:45→16:23)
[2023-02-09] MEDS: Metoprolol Tartrate 25 MG TAB PO SCH (08:45)
[2023-02-09] MEDS: Nystatin 500,000 UNITS/5 ML UDCUP SSW SCH ×3 (08:45→16:22)
[2023-02-09] MEDS: Furosemide 20 MG TAB PO SCH (08:45)
[2023-02-09] MEDS: Sacubitril 24MG/Valsartan 26 MG TAB PO SCH (08:45)
[2023-02-09] MEDS: HYDROcodone/Acetaminophen 5/325 mg Tablet PO PRN (09:12)
[2023-02-09 09:19] LABS: Magnesium 1.5 mg/dL (1.6-2.6)
[2023-02-09] MEDS ORDERED: Magnesium Sulfate In Water 4 GM in Premix Bag 1 BAG IVPB SCH (10:00)
[2023-02-09] MEDS: Doxycycline 100 MG CAP PO SCH (12:06)
[2023-02-09] MEDS: HumaLOG 300 UNITS/3 ML VIAL SC PRN (17:54)
[2023-02-09 20:12] VITALS: BP 141/64; TEMP 97.7
== END 2023-02-09 20:10 | DRG 871 ==
LOC: ERS 23:30 → ERHOLD 02-02 02:03 → 2NO 02-02 15:21
PROVIDERS: ADMIT Student in an Organized Health Care Education/Training Program; ATTEND Internal Medicine
PROC: 30233N1 Transfusion of Nonautologous Red Blood Cells into Peripheral Vein, Percutaneous Approach (ICD-10-PCS; principal; 2023-02-02)
PROC: 3E033XZ Introduction of Vasopressor into Peripheral Vein, Percutaneous Approach (ICD-10-PCS; 2023-02-02)
PROC: 3E03329 Introduction of Other Anti-infective into Peripheral Vein, Percutaneous Approach (ICD-10-PCS; 2023-02-02)
DX: A41.9 Sepsis, unspecified organism (principal); G93.41 Metabolic encephalopathy; J18.9 Pneumonia, unspecified organism; J96.21 Acute and chronic respiratory failure with hypoxia; R65.21 Severe sepsis with septic shock; I50.33 Acute on chronic diastolic (congestive) heart failure; J44.0 Chronic obstructive pulmonary disease with (acute) lower respiratory infection; J44.1 Chronic obstructive pulmonary disease with (acute) exacerbation; L03.211 Cellulitis of face; N17.9 Acute kidney failure, unspecified; I25.10 Atherosclerotic heart disease of native coronary artery without angina pectoris; E83.42 Hypomagnesemia; I11.0 Hypertensive heart disease with heart failure; E11.51 Type 2 diabetes mellitus with diabetic peripheral angiopathy without gangrene; F32.A Depression, unspecified; F41.9 Anxiety disorder, unspecified; Z90.49 Acquired absence of other specified parts of digestive tract; Z98.51 Tubal ligation status; Z98.1 Arthrodesis status; Z87.891 Personal history of nicotine dependence; Z88.2 Allergy status to sulfonamides; Z79.899 Other long term (current) drug therapy; Z99.81 Dependence on supplemental oxygen; Z93.3 Colostomy status
CPT/HCPCS: 36415; 36416; 36430; 36556; 36600; 70450; 71045; 74176; 74230; 80048; 80053; 80202; 81003; 82274; 82306; 82607; 82728; 82805; 83036; 83540; 83605; 83735; 83880; 84100; 84145; 84484; 85014; 85018; 85025; 85046; 85049; 85610; 85730; 86850; 86900; 86901; 87040; 87081; 87449; 87899; 93005; 93306; 94640; 96365; 96366; J0456; J0692; J0696; J1650; J1720; J1815; J3370; J3475; J3490; J7050; J7512; J7620; J7626; P9016; U0002

== ENCOUNTER 2023-06-22 12:43 | Inpatient (IN) | payer MEDICARE ==
[~2023-06-22 12:43] MED LIST: Iopamidol-370 76% 500 ML MDV (1 ML CHARGE) ONE
[2023-06-22 13:23] LABS: #Monocytes 0.1 thou/uL (0.11-0.59); #Neutrophils 12.7 thou/uL (1.40-6.50); %Basophils 0.2 % (0.0-1.0); %Lymphocytes 1.9 % (21.0-51.0); %Monocytes 0.9 % (0.0-10.0); %Neutrophils 96.2 % (42.0-75.0); Hematocrit 31.9 % (36.0-47.0); Hemoglobin 8.8 g/dL (12.0-16.0); Mean Corpuscular HGB CONC 27.6 g/dL (32.0-36.0); Mean Corpuscular Hemoglobin 22.7 pg (27.0-31.0); Mean Corpuscular Volume 82.2 fl (78.0-98.0); Mean Platelet Volume 9.5 fL (7.4-10.4); Platelet Count 356 10x3/uL (130-400); RBC Distribution Width 17.7 % (11.5-14.5); Red Blood Cell (RBC) Count 3.88 mill/uL (4.20-5.40); White Blood Cell (WBC) Count 13.2 10x3/uL (4.8-10.8)
[2023-06-22] MEDS ORDERED: Ipratropium/Albuterol 3 ML NEB ONE (13:32)
[2023-06-22 13:35] LABS: INR-International Normal Ratio 1.1; Prothrombin Time 14.7 sec (12.0-14.7)
[2023-06-22 13:36] LABS: PTT 37.9 sec (22.9-36.1)
[2023-06-22 13:48] LABS: ALT (SGPT) 9 U/L (8-55); AST (SGOT) 10 U/L (5-34); Albumin 3.5 g/dL (3.4-4.8); Alkaline Phosphatase 133 U/L (40-110); Anion Gap 14 mmol/L (10-20); Anisocytosis SLIGHT = 6-15 cells HPF (0-5); BUN (Urea Nitrogen) 9 mg/dL (9.8-20.1); Bilirubin, Total 0.5 mg/dL (0.2-1.2); Calc. Creatinine Clearance 0 mL/min (70-130); Calcium 8.8 mg/dL (7.8-10.44); Carbon Dioxide 25 mmol/L (23-31); CellaVision Operator ID LAB.MJL; Chloride 99 mmol/L (98-107); Estimated GFR 85; Globulin 3.1 g/dL (2.4-3.5); Glucose 183 mg/dL (80-115); Hypochromia SLIGHT = 6-15 cells HPF (0-5); Magnesium 1.2 mg/dL (1.6-2.6); Ovalocytes SLIGHT = 2-5 cells HPF (0-1); Platelet Adequacy Comment Platelets Normal; Poikilocytosis SLIGHT = 6-15 cells HPF (0-5); Polychromasia MODERATE = 3-4 cells HPF (0-2); Potassium 3.5 mmol/L (3.5-5.1); Protein, Total 6.6 g/dL (5.8-8.1); Schistocytes SLIGHT = 2-5 cells HPF (0-1); Sodium 134 mmol/L (136-145); Target Cells SLIGHT = 2-5 cells HPF (0-1)
[2023-06-22 13:52] LABS: Troponin I Less than 0.010 ng/mL (< 0.028)
[2023-06-22] MEDS ORDERED: cefTRIAXone (ROCEPHIN) 1 GM VIAL ONE (14:12)
[2023-06-22] MEDS ORDERED: Magnesium 2 GM/50 ML BAG (IN WATER) ONE (14:12)
[2023-06-22] MEDS ORDERED: Cefepime 2 GM VIAL ONE (14:17)
[2023-06-22] MEDS ORDERED: Vancomycin 1 GM/200 ML (FROZEN) BAG ONE (14:17)
[2023-06-22 14:46] LABS: Bacteria/HPF None Seen HPF (None Seen); Bilirubin Negative (Negative); Blood, Urine Negative (Negative); CAUTI Indications for Culture Fever or rigors; Clarity Clear (Clear); Glucose, Urine (Dipstick) Normal (Negative); Ketone, Urine Negative (Negative); Leukocyte Negative Leu/uL (Negative); Nitrite Negative (Negative); Protein, Urine (Dipstick) Negative (Neg-Trace); RBC/HPF None Seen HPF (0-3); Specific Gravity, Urine 1.003 (1.002-1.036); Squamous Epithelial None Seen HPF (0-3); Urobilinogen Normal mg/dL (Less than 2); WBC/HPF None Seen HPF (0-3)
[2023-06-22 14:50] LABS: Urine Culture Reflex No No
[2023-06-22] MEDS ORDERED: Ondansetron PF 4 MG/2 ML Vial IVP PRN (16:21)
[2023-06-22] MEDS ORDERED: Senokot S 8.6-50 MG TAB PO PRN (16:21)
[2023-06-22] MEDS ORDERED: Dextrose 5% in Water 1,000 ML IV PRN (16:23)
[2023-06-22] MEDS ORDERED: Dextrose 50% Abboject 50 ML SYRINGE SLOW IVP PRN (16:23)
[2023-06-22] MEDS ORDERED: Glucagon 1 MG/ML KIT IM PRN (16:23)
[2023-06-22 16:48] LABS: Lactic Acid 3.3 mmol/L (0.5-2.2)
[2023-06-22 17:28] LABS: Troponin I Less than 0.010 ng/mL (< 0.028)
[2023-06-22] MEDS: Ipratropium/Albuterol 3 ML NEB NEB SCH ×2 (18:34→23:52)
[2023-06-22] MEDS ORDERED: Sodium Chloride 0.9% 500 ML IV SCH (19:00)
[2023-06-22] MEDS: Sacubitril 24MG/Valsartan 26 MG TAB PO SCH (20:22)
[2023-06-22] MEDS: Famotidine 20 MG TAB PO SCH (20:22)
[2023-06-22] MEDS: Metoprolol Tartrate 25 MG TAB PO SCH (20:22)
[2023-06-22] MEDS: guaiFENesin ER 600 MG TAB PO SCH (20:22)
[2023-06-22] MEDS: methylPREDNISolone Sod Succ 40 MG VIAL IVP SCH (20:22)
[2023-06-22] MEDS: Atorvastatin Calcium 40 MG TAB PO SCH (20:22)
[2023-06-22 20:33] LABS: Troponin I Less than 0.010 ng/mL (< 0.028)
[2023-06-22] MEDS: ALPRAZolam 0.25 MG TAB PO PRN (20:33)
[2023-06-22] MEDS ORDERED: Sodium Chloride 0.9% 1,000 ML IV SCH (21:00)
[2023-06-22] MEDS ORDERED: traMADol HCl 50 MG TAB PO SCH (22:30)
[2023-06-22] MEDS ORDERED: Lidocaine 4% Patch TD SCH ×2 (22:30→23:00)
[2023-06-22] MEDS ORDERED: Acetaminophen 500 MG TAB PO SCH (22:30)
[2023-06-22] MEDS: HumaLOG 300 UNITS/3 ML VIAL SC PRN (22:39)
[2023-06-23 04:29] LABS: #Monocytes 0.2 thou/uL (0.11-0.59); #Neutrophils 5.6 thou/uL (1.40-6.50); %Lymphocytes 8.6 % (21.0-51.0); %Monocytes 2.7 % (0.0-10.0); %Neutrophils 88.2 % (42.0-75.0); Hemoglobin 8.3 g/dL (12.0-16.0); Mean Corpuscular HGB CONC 27.7 g/dL (32.0-36.0); Mean Corpuscular Hemoglobin 22.4 pg (27.0-31.0); Mean Corpuscular Volume 80.9 fl (78.0-98.0); Mean Platelet Volume 9.5 fL (7.4-10.4); Platelet Count 301 10x3/uL (130-400); RBC Distribution Width 17.4 % (11.5-14.5); Red Blood Cell (RBC) Count 3.71 mill/uL (4.20-5.40); White Blood Cell (WBC) Count 6.4 10x3/uL (4.8-10.8)
[2023-06-23 04:52] LABS: ALT (SGPT) 8 U/L (8-55); AST (SGOT) 9 U/L (5-34); Albumin 3.2 g/dL (3.4-4.8); Alkaline Phosphatase 121 U/L (40-110); Anion Gap 13 mmol/L (10-20); BUN (Urea Nitrogen) 7 mg/dL (9.8-20.1); Bilirubin, Total 0.2 mg/dL (0.2-1.2); Calc. Creatinine Clearance 75 mL/min (70-130); Calcium 8.8 mg/dL (7.8-10.44); Carbon Dioxide 22 mmol/L (23-31); Chloride 104 mmol/L (98-107); Estimated GFR 89; Glucose 253 mg/dL (80-115); Potassium 3.8 mmol/L (3.5-5.1); Protein, Total 6.2 g/dL (5.8-8.1); Sodium 135 mmol/L (136-145)
[2023-06-23] MEDS: HumaLOG 300 UNITS/3 ML VIAL SC PRN ×3 (05:48→21:25)
[2023-06-23] MEDS: Ipratropium/Albuterol 3 ML NEB NEB SCH ×4 (07:16→23:20)
[2023-06-23] MEDS: Sacubitril 24MG/Valsartan 26 MG TAB PO SCH ×2 (08:13→21:21)
[2023-06-23] MEDS: methylPREDNISolone Sod Succ 40 MG VIAL IVP SCH ×3 (08:13→21:24)
[2023-06-23] MEDS: guaiFENesin ER 600 MG TAB PO SCH ×2 (08:13→21:22)
[2023-06-23] MEDS: LevoFLOXacin 750 mg/D5W 750 MG in Premix Bag 1 BAG IVPB SCH (08:13)
[2023-06-23] MEDS: Metoprolol Tartrate 25 MG TAB PO SCH ×2 (08:13→21:22)
[2023-06-23] MEDS: Famotidine 20 MG TAB PO SCH ×2 (08:13→21:24)
[2023-06-23] MEDS: Clopidogrel Bisulfate 75 MG TAB PO SCH (08:13)
[2023-06-23] MEDS: Aspirin Chewable 81 MG TAB PO SCH (08:13)
[2023-06-23] MEDS: DULoxetine 20 MG CAP PO SCH (08:14)
[2023-06-23] MEDS: ALPRAZolam 0.25 MG TAB PO PRN ×2 (08:14→21:50)
[2023-06-23] MEDS ORDERED: Acetaminophen 325 MG TAB PO PRN (08:15)
[2023-06-23 10:25] VITALS: BMI 25.4
[2023-06-23] MEDS ORDERED: Transdermal Patch Removal TOP SCH (11:00)
[2023-06-23] MEDS: Atorvastatin Calcium 40 MG TAB PO SCH (21:00)
[2023-06-24 03:53] LABS: #Monocytes 0.9 thou/uL (0.11-0.59); #Neutrophils 13.3 thou/uL (1.40-6.50); %Basophils 0.1 % (0.0-1.0); %Monocytes 6.1 % (0.0-10.0); %Neutrophils 85.9 % (42.0-75.0); Hematocrit 29.6 % (36.0-47.0); Hemoglobin 8.3 g/dL (12.0-16.0); Mean Corpuscular Hemoglobin 22.9 pg (27.0-31.0); Mean Corpuscular Volume 81.5 fl (78.0-98.0); Mean Platelet Volume 9.3 fL (7.4-10.4); Platelet Count 306 10x3/uL (130-400); RBC Distribution Width 17.5 % (11.5-14.5); Red Blood Cell (RBC) Count 3.63 mill/uL (4.20-5.40); White Blood Cell (WBC) Count 15.5 10x3/uL (4.8-10.8)
[2023-06-24 04:19] LABS: Anion Gap 11 mmol/L (10-20); BUN (Urea Nitrogen) 12 mg/dL (9.8-20.1); Calc. Creatinine Clearance 65 mL/min (70-130); Carbon Dioxide 27 mmol/L (23-31); Chloride 102 mmol/L (98-107); Estimated GFR 75; Glucose 275 mg/dL (80-115); Magnesium 1.5 mg/dL (1.6-2.6); Potassium 4.5 mmol/L (3.5-5.1); Sodium 135 mmol/L (136-145)
[2023-06-24 04:38] LABS: Anisocytosis SLIGHT = 6-15 cells HPF (0-5); CellaVision Operator ID lab.sh2; Hypochromia MODERATE=16-30 cells HPF (0-5); Large Platelets 3.5 % (0-5); Macrocytosis SLIGHT = 6-15 cells HPF (0-5); Platelet Adequacy Comment Platelets Normal; Polychromasia SLIGHT = 2-3 cells HPF (0-2); Smudge Cells 10.6 %
[2023-06-24] MEDS: Ipratropium/Albuterol 3 ML NEB NEB SCH ×2 (07:10→13:29)
[2023-06-24] MEDS ORDERED: Magnesium 2 GM/50 ML(in water) 2 GM in Premix Bag 1 BAG IVPB SCH (08:00)
[2023-06-24] MEDS: Aspirin Chewable 81 MG TAB PO SCH (08:49)
[2023-06-24] MEDS: Metoprolol Tartrate 25 MG TAB PO SCH (08:49)
[2023-06-24] MEDS: Famotidine 20 MG TAB PO SCH (08:49)
[2023-06-24] MEDS: guaiFENesin ER 600 MG TAB PO SCH (08:49)
[2023-06-24] MEDS: Clopidogrel Bisulfate 75 MG TAB PO SCH (08:49)
[2023-06-24] MEDS: DULoxetine 20 MG CAP PO SCH (08:49)
[2023-06-24] MEDS: LevoFLOXacin 750 mg/D5W 750 MG in Premix Bag 1 BAG IVPB SCH (08:49)
[2023-06-24] MEDS: Sacubitril 24MG/Valsartan 26 MG TAB PO SCH (08:50)
[2023-06-24] MEDS: methylPREDNISolone Sod Succ 40 MG VIAL IVP SCH (08:50)
[2023-06-24] MEDS: ALPRAZolam 0.25 MG TAB PO PRN (09:02)
[2023-06-24 12:09] VITALS: BP 144/74; TEMP 97.7
== END 2023-06-24 14:15 | disposition home or self-care (01) | DRG 189 ==
LOC: SUATTDRO 12:43 → ERS 12:43 → 2NO 16:21
PROVIDERS: ADMIT Internal Medicine; ATTEND Internal Medicine
DX: J96.21 Acute and chronic respiratory failure with hypoxia (principal); J44.1 Chronic obstructive pulmonary disease with (acute) exacerbation; I50.32 Chronic diastolic (congestive) heart failure; E78.5 Hyperlipidemia, unspecified; I95.9 Hypotension, unspecified; D64.9 Anemia, unspecified; I11.0 Hypertensive heart disease with heart failure; I77.9 Disorder of arteries and arterioles, unspecified; I25.10 Atherosclerotic heart disease of native coronary artery without angina pectoris; E11.51 Type 2 diabetes mellitus with diabetic peripheral angiopathy without gangrene; F41.9 Anxiety disorder, unspecified; F32.A Depression, unspecified; Z88.2 Allergy status to sulfonamides; Z85.038 Personal history of other malignant neoplasm of large intestine; Z90.49 Acquired absence of other specified parts of digestive tract; Z79.899 Other long term (current) drug therapy; Z79.84 Long term (current) use of oral hypoglycemic drugs; Z79.51 Long term (current) use of inhaled steroids; Z79.82 Long term (current) use of aspirin; Z98.890 Other specified postprocedural states; Z87.891 Personal history of nicotine dependence
CPT/HCPCS: 36415; 36416; 71045; 71275; 80048; 80053; 81001; 83605; 83735; 83880; 84484; 85025; 85610; 85730; 87040; 87086; 93005; 94640; 94760; 96361; 96365; 96367; J0692; J0696; J1650; J1815; J1956; J2920; J3370-JW; J3475; J7030; J7620; Q9967

== ENCOUNTER 2023-08-23 11:44 | Inpatient (IN) | payer MEDICARE ==
[2023-08-23 12:35] LABS: #Monocytes 0.5 thou/uL (0.11-0.59); #Neutrophils 10.4 thou/uL (1.40-6.50); %Basophils 0.3 % (0.0-1.0); %Eosinophils 0.2 % (0.0-10.0); %Lymphocytes 4.4 % (21.0-51.0); %Monocytes 3.9 % (0.0-10.0); %Neutrophils 90.7 % (42.0-75.0); Hematocrit 29.8 % (36.0-47.0); Hemoglobin 7.9 g/dL (12.0-16.0); Mean Corpuscular HGB CONC 26.5 g/dL (32.0-36.0); Mean Corpuscular Hemoglobin 19.6 pg (27.0-31.0); Mean Corpuscular Volume 73.8 fl (78.0-98.0); Mean Platelet Volume 9.6 fL (7.4-10.4); Platelet Count 234 10x3/uL (130-400); RBC Distribution Width 17.9 % (11.5-14.5); Red Blood Cell (RBC) Count 4.04 mill/uL (4.20-5.40); White Blood Cell (WBC) Count 11.5 10x3/uL (4.8-10.8)
[2023-08-23 12:48] LABS: INR-International Normal Ratio 1.1; Prothrombin Time 14.8 sec (12.0-14.7)
[2023-08-23 12:49] LABS: PTT 34.2 sec (22.9-36.1)
[2023-08-23 12:57] LABS: ALT (SGPT) 9 U/L (8-55); AST (SGOT) 18 U/L (5-34); Albumin 3.8 g/dL (3.4-4.8); Alkaline Phosphatase 114 U/L (40-110); Anion Gap 14 mmol/L (10-20); BUN (Urea Nitrogen) 6 mg/dL (9.8-20.1); Bilirubin, Total 0.6 mg/dL (0.2-1.2); Calc. Creatinine Clearance 0 mL/min (70-130); Calcium 9.2 mg/dL (7.8-10.44); Carbon Dioxide 25 mmol/L (23-31); Chloride 100 mmol/L (98-107); Estimated GFR 83; Globulin 3.2 g/dL (2.4-3.5); Glucose 189 mg/dL (80-115); Potassium 3.8 mmol/L (3.5-5.1); Sodium 135 mmol/L (136-145)
[2023-08-23 13:18] LABS: Anisocytosis SLIGHT = 6-15 cells HPF (0-5); Burr Cells SLIGHT = 2-5 cells HPF (0-1); CellaVision Operator ID LAB.KB; Hypochromia SLIGHT = 6-15 cells HPF (0-5); Microcytosis SLIGHT = 6-15 cells HPF (0-5); Ovalocytes SLIGHT = 2-5 cells HPF (0-1); Platelet Adequacy Comment Platelets Normal; Polychromasia SLIGHT = 2-3 cells HPF (0-2); Target Cells SLIGHT = 2-5 cells HPF (0-1)
[2023-08-23] MEDS ORDERED: Dextrose 50% Abboject 50 ML SYRINGE SLOW IVP PRN (13:42)
[2023-08-23] MEDS ORDERED: Dextrose 5% in Water 1,000 ML IV PRN (13:42)
[2023-08-23] MEDS ORDERED: Ondansetron ODT 4 MG TAB PO PRN (13:42)
[2023-08-23] MEDS ORDERED: Glucagon 1 MG/ML KIT IM PRN (13:42)
[2023-08-23] MEDS ORDERED: LevoFLOXacin 750 mg/D5W 150 ml Premix Bag ONE (14:02)
[2023-08-23 14:10] LABS: Actual Bicarbonate (HCO3a) 26.4 mEq/L (22-28); Analyzer IN Cardio ER; Base Excess (BEa) 1.6 mEq/L (-2.0 to +3.0); CO2 Tension 42.3 mmHg (35.0-45.0); Calcium, Ionized (arterial) 1.12 mmol/L (1.12-1.30); Carboxyhemoglobin (COHb) 0.8 gm% (0.0-3.0); Hematocrit-ABG 26 % (36.0-47.0); Hemoglobin (Hb) 8.7 g/dL (12.0-16.0); pH, Arterial 7.413 (7.35-7.45)
[2023-08-23 14:13] LABS: O2 Tension (PaO2), arterial 48.3 mmHg (> 80.0)
[2023-08-23 14:14] LABS: Puncture Site RBA
[2023-08-23 14:23] LABS: Bacteria/HPF None Seen HPF (None Seen); Bilirubin Negative (Negative); Blood, Urine Negative (Negative); CAUTI Indications for Culture Alt mental st,lethar; Clarity Clear (Clear); Glucose, Urine (Dipstick) Normal (Negative); Ketone, Urine Trace mg/dL (Negative); Leukocyte Negative Leu/uL (Negative); Nitrite Negative (Negative); Protein, Urine (Dipstick) 30 mg/dL (Neg-Trace); RBC/HPF 0-3 HPF (0-3); Specific Gravity, Urine 1.017 (1.002-1.036); Squamous Epithelial 0-3 HPF (0-3)
[2023-08-23 14:27] LABS: Urine Culture Reflex No No
[2023-08-23] MEDS ORDERED: Morphine 4 MG/ML VIAL ONE (15:36)
[2023-08-23 16:24] LABS: Troponin I 0.026 ng/mL (< 0.028)
[2023-08-23] MEDS: ALPRAZolam 0.5 MG TAB PO SCH ×2 (18:43→21:03)
[2023-08-23 19:41] LABS: Troponin I Less than 0.010 ng/mL (< 0.028)
[2023-08-23] MEDS ORDERED: Famotidine 20 MG TAB PO SCH (21:00)
[2023-08-23] MEDS: Atorvastatin Calcium 40 MG TAB PO SCH (21:03)
[2023-08-23] MEDS: HYDROcodone/Acetaminophen 5/325 mg Tablet PO PRN (21:04)
[2023-08-23] MEDS: Famotidine 20 MG TAB PO SCH (21:04)
[2023-08-23] MEDS: Sacubitril 24MG/Valsartan 26 MG TAB PO SCH ×2 (21:04→21:07)
[2023-08-23] MEDS: guaiFENesin ER 600 MG TAB PO SCH (21:04)
[2023-08-23] MEDS: Benzonatate 100 MG CAP PO PRN (21:04)
[2023-08-23] MEDS: Insulin Regular 300 UNITS/3 ML VIAL SC PRN (21:14)
[2023-08-24] MEDS: HYDROcodone/Acetaminophen 5/325 mg Tablet PO PRN (04:07)
[2023-08-24 04:51] LABS: #Monocytes 1.1 thou/uL (0.11-0.59); #Neutrophils 7.1 thou/uL (1.40-6.50); %Lymphocytes 8.1 % (21.0-51.0); %Monocytes 12.4 % (0.0-10.0); %Neutrophils 78.9 % (42.0-75.0); Hematocrit 25.5 % (36.0-47.0); Mean Corpuscular HGB CONC 27.5 g/dL (32.0-36.0); Mean Corpuscular Hemoglobin 19.8 pg (27.0-31.0); Mean Platelet Volume 9.7 fL (7.4-10.4); Platelet Count 212 10x3/uL (130-400); RBC Distribution Width 17.6 % (11.5-14.5); Red Blood Cell (RBC) Count 3.54 mill/uL (4.20-5.40)
[2023-08-24 05:26] LABS: Anion Gap 16 mmol/L (10-20); BUN (Urea Nitrogen) 11 mg/dL (9.8-20.1); Calc. Creatinine Clearance 79 mL/min (70-130); Carbon Dioxide 25 mmol/L (23-31); Chloride 98 mmol/L (98-107); Estimated GFR 81; Glucose 194 mg/dL (80-115); Potassium 4.2 mmol/L (3.5-5.1); Sodium 135 mmol/L (136-145)
[2023-08-24] MEDS: Insulin Regular 300 UNITS/3 ML VIAL SC PRN ×3 (06:07→20:47)
[2023-08-24] MEDS ORDERED: FLU VACC QS2023-24(6MOS UP)/PF 60 MCG/0.5 ML SYRINGE IM ONE (09:00)
[2023-08-24] MEDS: Furosemide 20 MG TAB PO SCH (09:21)
[2023-08-24] MEDS: DULoxetine 30 MG CAP PO SCH (09:21)
[2023-08-24] MEDS: Clopidogrel Bisulfate 75 MG TAB PO SCH (09:21)
[2023-08-24] MEDS: Multivit, Therapeutic 1 TAB PO SCH (09:21)
[2023-08-24] MEDS: Aspirin 81 mg Enteric Coated Tablet PO SCH (09:21)
[2023-08-24] MEDS: guaiFENesin ER 600 MG TAB PO SCH ×2 (09:22→20:36)
[2023-08-24] MEDS: ALPRAZolam 0.5 MG TAB PO SCH ×3 (09:22→20:36)
[2023-08-24] MEDS: Famotidine 20 MG TAB PO SCH (09:22)
[2023-08-24] MEDS: predniSONE 20 MG TAB PO SCH (09:22)
[2023-08-24] MEDS: Sacubitril 24MG/Valsartan 26 MG TAB PO SCH ×2 (09:22→20:56)
[2023-08-24] MEDS: Ipratropium/Albuterol 3 ML NEB NEB PRN (10:52)
[2023-08-24] MEDS ORDERED: HYDROcodone/Acetaminophen 5/325 mg Tablet PO PRN (12:30)
[2023-08-24] MEDS: LevoFLOXacin 750 mg/D5W 750 MG in Premix 1 BAG IVPB SCH (14:33)
[2023-08-24] MEDS ORDERED: Polyethylene Glycol 3350 17 GM Packet PO PRN (17:10)
[2023-08-24] MEDS: Atorvastatin Calcium 40 MG TAB PO SCH (20:36)
[2023-08-24] MEDS: Benzonatate 100 MG CAP PO PRN (20:36)
[2023-08-24] MEDS: Budesonide 0.5 MG/2 ML NEB INH SCH (20:38)
[2023-08-24 22:33] LABS: Hematocrit 30.3 % (36.0-47.0); Hemoglobin 8.9 g/dL (12.0-16.0)
[2023-08-25 04:15] LABS: #Monocytes 1.1 thou/uL (0.11-0.59); #Neutrophils 9.8 thou/uL (1.40-6.50); %Basophils 0.1 % (0.0-1.0); %Lymphocytes 8.5 % (21.0-51.0); %Monocytes 9.3 % (0.0-10.0); %Neutrophils 81.7 % (42.0-75.0); Hematocrit 33.9 % (36.0-47.0); Hemoglobin 9.8 g/dL (12.0-16.0); Mean Corpuscular HGB CONC 28.9 g/dL (32.0-36.0); Mean Corpuscular Hemoglobin 21.5 pg (27.0-31.0); Mean Platelet Volume 10.3 fL (7.4-10.4); Platelet Count 252 10x3/uL (130-400); RBC Distribution Width 17.8 % (11.5-14.5); Red Blood Cell (RBC) Count 4.55 mill/uL (4.20-5.40); White Blood Cell (WBC) Count 11.9 10x3/uL (4.8-10.8)
[2023-08-25 05:20] LABS: Mean Corpuscular Volume 74.5 fl (78.0-98.0)
[2023-08-25] MEDS: Insulin Regular 300 UNITS/3 ML VIAL SC PRN ×3 (05:42→21:35)
[2023-08-25 06:27] LABS: Anisocytosis SLIGHT = 6-15 cells HPF (0-5); CellaVision Operator ID LAB.JMM; Hypochromia MODERATE=16-30 cells HPF (0-5); Platelet Adequacy Comment Platelets Decreased; Target Cells SLIGHT = 2-5 cells HPF (0-1)
[2023-08-25] MEDS: Budesonide 0.5 MG/2 ML NEB INH SCH ×2 (07:19→18:42)
[2023-08-25 09:00] LABS: Anion Gap 15 mmol/L (10-20); BUN (Urea Nitrogen) 17 mg/dL (9.8-20.1); Calc. Creatinine Clearance 59 mL/min (70-130); Calcium 8.7 mg/dL (7.8-10.44); Carbon Dioxide 28 mmol/L (23-31); Chloride 98 mmol/L (98-107); Estimated GFR 69; Glucose 205 mg/dL (80-115); Potassium 4.6 mmol/L (3.5-5.1); Sodium 136 mmol/L (136-145)
[2023-08-25] MEDS: Sacubitril 24MG/Valsartan 26 MG TAB PO SCH ×2 (09:45→20:52)
[2023-08-25] MEDS: guaiFENesin ER 600 MG TAB PO SCH ×2 (09:45→20:52)
[2023-08-25] MEDS: DULoxetine 30 MG CAP PO SCH (09:45)
[2023-08-25] MEDS: Multivit, Therapeutic 1 TAB PO SCH (09:45)
[2023-08-25] MEDS: Clopidogrel Bisulfate 75 MG TAB PO SCH (09:46)
[2023-08-25] MEDS: Furosemide 20 MG TAB PO SCH (09:46)
[2023-08-25] MEDS: Aspirin 81 mg Enteric Coated Tablet PO SCH (09:46)
[2023-08-25] MEDS: ALPRAZolam 0.5 MG TAB PO SCH ×3 (09:46→20:52)
[2023-08-25] MEDS: predniSONE 20 MG TAB PO SCH (09:46)
[2023-08-25 09:56] VITALS: BMI 24.1
[2023-08-25] MEDS: LevoFLOXacin 750 mg/D5W 750 MG in Premix 1 BAG IVPB SCH (14:30)
[2023-08-25] MEDS: Ipratropium/Albuterol 3 ML NEB NEB PRN (18:42)
[2023-08-25] MEDS: Atorvastatin Calcium 40 MG TAB PO SCH (20:53)
[2023-08-25] MEDS: Acetaminophen 325 MG TAB PO PRN (21:38)
[2023-08-26 04:37] LABS: #Monocytes 1.4 thou/uL (0.11-0.59); #Neutrophils 9.4 thou/uL (1.40-6.50); %Basophils 0.1 % (0.0-1.0); %Lymphocytes 14.5 % (21.0-51.0); %Monocytes 10.8 % (0.0-10.0); %Neutrophils 74.2 % (42.0-75.0); Hematocrit 32.5 % (36.0-47.0); Hemoglobin 9.2 g/dL (12.0-16.0); Mean Corpuscular HGB CONC 28.3 g/dL (32.0-36.0); Mean Platelet Volume 10.4 fL (7.4-10.4); Platelet Count 272 10x3/uL (130-400); RBC Distribution Width 18.4 % (11.5-14.5); Red Blood Cell (RBC) Count 4.39 mill/uL (4.20-5.40); White Blood Cell (WBC) Count 12.7 10x3/uL (4.8-10.8)
[2023-08-26 04:55] LABS: Anion Gap 12 mmol/L (10-20); BUN (Urea Nitrogen) 18 mg/dL (9.8-20.1); Calc. Creatinine Clearance 55 mL/min (70-130); Carbon Dioxide 29 mmol/L (23-31); Chloride 99 mmol/L (98-107); Estimated GFR 64; Glucose 206 mg/dL (80-115); Potassium 4.6 mmol/L (3.5-5.1); Sodium 135 mmol/L (136-145)
[2023-08-26] MEDS: Insulin Regular 300 UNITS/3 ML VIAL SC PRN ×2 (05:42→16:46)
[2023-08-26 06:37] LABS: CellaVision Operator ID LAB.GE; Hypochromia MODERATE=16-30 cells HPF (0-5); Large Platelets 4.1 % (0-5); Microcytosis SLIGHT = 6-15 cells HPF (0-5); Platelet Adequacy Comment Platelets Normal; Polychromasia MODERATE = 3-4 cells HPF (0-2)
[2023-08-26] MEDS: Budesonide 0.5 MG/2 ML NEB INH SCH ×2 (08:05→19:39)
[2023-08-26] MEDS: Aspirin 81 mg Enteric Coated Tablet PO SCH (08:45)
[2023-08-26] MEDS: Clopidogrel Bisulfate 75 MG TAB PO SCH (08:46)
[2023-08-26] MEDS: DULoxetine 30 MG CAP PO SCH (08:46)
[2023-08-26] MEDS: Multivit, Therapeutic 1 TAB PO SCH (08:46)
[2023-08-26] MEDS: predniSONE 20 MG TAB PO SCH (08:46)
[2023-08-26] MEDS: Sacubitril 24MG/Valsartan 26 MG TAB PO SCH ×2 (08:46→21:02)
[2023-08-26] MEDS: Furosemide 20 MG TAB PO SCH (08:46)
[2023-08-26] MEDS: ALPRAZolam 0.5 MG TAB PO SCH ×3 (08:47→21:02)
[2023-08-26] MEDS: guaiFENesin ER 600 MG TAB PO SCH ×2 (08:47→21:02)
[2023-08-26] MEDS: LevoFLOXacin 750 mg/D5W 750 MG in Premix 1 BAG IVPB SCH (14:24)
[2023-08-26] MEDS: Atorvastatin Calcium 40 MG TAB PO SCH (21:02)
[2023-08-26] MEDS: Acetaminophen 325 MG TAB PO PRN (21:50)
[2023-08-27 04:59] LABS: #Monocytes 1.5 thou/uL (0.11-0.59); #Neutrophils 7.6 thou/uL (1.40-6.50); %Basophils 0.1 % (0.0-1.0); %Lymphocytes 22.4 % (21.0-51.0); %Monocytes 12.8 % (0.0-10.0); %Neutrophils 64.4 % (42.0-75.0); Hematocrit 34.5 % (36.0-47.0); Hemoglobin 9.9 g/dL (12.0-16.0); Mean Corpuscular HGB CONC 28.7 g/dL (32.0-36.0); Mean Corpuscular Hemoglobin 21.7 pg (27.0-31.0); Mean Corpuscular Volume 75.5 fl (78.0-98.0); Mean Platelet Volume 9.7 fL (7.4-10.4); Platelet Count 291 10x3/uL (130-400); RBC Distribution Width 18.8 % (11.5-14.5); Red Blood Cell (RBC) Count 4.57 mill/uL (4.20-5.40); White Blood Cell (WBC) Count 11.8 10x3/uL (4.8-10.8)
[2023-08-27 05:39] LABS: Anion Gap 14 mmol/L (10-20); BUN (Urea Nitrogen) 21 mg/dL (9.8-20.1); Calc. Creatinine Clearance 66 mL/min (70-130); Calcium 8.6 mg/dL (7.8-10.44); Carbon Dioxide 26 mmol/L (23-31); Chloride 101 mmol/L (98-107); Estimated GFR 80; Glucose 174 mg/dL (80-115); Potassium 3.7 mmol/L (3.5-5.1); Sodium 137 mmol/L (136-145)
[2023-08-27] MEDS: Budesonide 0.5 MG/2 ML NEB INH SCH (06:50)
[2023-08-27] MEDS ORDERED: predniSONE 20 MG TAB PO SCH (09:00)
[2023-08-27] MEDS: guaiFENesin ER 600 MG TAB PO SCH (09:40)
[2023-08-27] MEDS: ALPRAZolam 0.5 MG TAB PO SCH ×2 (09:40→14:26)
[2023-08-27] MEDS: Sacubitril 24MG/Valsartan 26 MG TAB PO SCH (09:40)
[2023-08-27] MEDS: Aspirin 81 mg Enteric Coated Tablet PO SCH (09:40)
[2023-08-27] MEDS: Clopidogrel Bisulfate 75 MG TAB PO SCH (09:41)
[2023-08-27] MEDS: Multivit, Therapeutic 1 TAB PO SCH (09:41)
[2023-08-27] MEDS: DULoxetine 30 MG CAP PO SCH (09:41)
[2023-08-27] MEDS: Furosemide 20 MG TAB PO SCH (09:41)
[2023-08-27 11:32] VITALS: TEMP 97.7
[2023-08-27 11:52] VITALS: BP 114/56
[2023-08-27] MEDS: LevoFLOXacin 750 mg/D5W 750 MG in Premix 1 BAG IVPB SCH (14:47)
== END 2023-08-27 16:30 | disposition home health service (06) | DRG 193 ==
LOC: SUATTDRO 11:44 → ERS 11:44 → 2NO 17:48 → OBSVTOIN 08-24 08:59
PROVIDERS: ADMIT Internal Medicine; ATTEND Internal Medicine
PROC: 4A033R1 Measurement of Arterial Saturation, Peripheral, Percutaneous Approach (ICD-10-PCS; 2023-08-23)
PROC: 30233N1 Transfusion of Nonautologous Red Blood Cells into Peripheral Vein, Percutaneous Approach (ICD-10-PCS; principal; 2023-08-24)
DX: J18.9 Pneumonia, unspecified organism (principal); J96.21 Acute and chronic respiratory failure with hypoxia; I50.32 Chronic diastolic (congestive) heart failure; J44.0 Chronic obstructive pulmonary disease with (acute) lower respiratory infection; E78.5 Hyperlipidemia, unspecified; E11.9 Type 2 diabetes mellitus without complications; F32.A Depression, unspecified; F41.9 Anxiety disorder, unspecified; I11.0 Hypertensive heart disease with heart failure; I77.9 Disorder of arteries and arterioles, unspecified; D50.9 Iron deficiency anemia, unspecified; R91.1 Solitary pulmonary nodule; K43.9 Ventral hernia without obstruction or gangrene; Z88.2 Allergy status to sulfonamides; Z79.899 Other long term (current) drug therapy; Z79.84 Long term (current) use of oral hypoglycemic drugs; Z79.51 Long term (current) use of inhaled steroids; Z79.82 Long term (current) use of aspirin; Z98.890 Other specified postprocedural states; Z99.81 Dependence on supplemental oxygen
CPT/HCPCS: 36415; 36416; 36430; 36600; 71045; 71046; 80048; 80053; 81001; 82805; 83605; 84484; 85025; 85610; 85730; 86850; 86900; 86901; 87040; 87086; 93005; 94640; 94760; 96365; 96374; G0378; J1650; J1815; J1956; J2270; J7512; J7611; J7620; J7626; P9016

== ENCOUNTER 2023-09-13 13:05 | Outpatient (CLI) | payer MEDICARE ==
[2023-09-13 14:40] LABS: Hematocrit 32.9 % (34.9-44.5); Hemoglobin 9.1 g/dL (12.0-15.5); Mean Corpuscular HGB CONC 27.7 g/dL (32.0-36.0); Mean Corpuscular Hemoglobin 20.7 pg (27.0-33.0); Mean Corpuscular Volume 74.8 fl (81.6-98.3); Mean Platelet Volume 9.2 fl (7.4-10.4); Platelet Count 248 10x3/uL (150-450); RBC Distribution Width 20.5 % (11.5-14.5); White Blood Cell (WBC) Count 8.3 10x3/uL (3.5-10.5)
[2023-09-13 14:50] LABS: Anion Gap 16 mmol/L (10-20); BUN (Urea Nitrogen) 12 mg/dL (9.8-20.1); Calc. Creatinine Clearance 0 mL/min (70-130); Calcium 9.3 mg/dL (7.8-10.44); Carbon Dioxide 28 mmol/L (23-31); Chloride 96 mmol/L (98-107); Estimated GFR 83; Glucose 122 mg/dL (80-115); Potassium 3.4 mmol/L (3.5-5.1); Sodium 137 mmol/L (136-145)
== END 2023-09-13 13:06 | disposition home or self-care (01) ==
LOC: LABBT 13:05
PROVIDERS: ATTEND Thoracic Surgery (Cardiothoracic Vascular Surgery)
DX: Z01.818 Encounter for other preprocedural examination (principal); I65.21 Occlusion and stenosis of right carotid artery
CPT/HCPCS: 80048; 85027; 93005; 93010

== ENCOUNTER 2023-09-28 10:53 | Outpatient (CLI) | payer MEDICARE | END 2023-09-28 10:54 | disposition home or self-care (01) | LOC: RAD 10:53 | PROVIDERS: ATTEND Internal Medicine Critical Care Medicine | DX: R06.00 Dyspnea, unspecified (principal); J44.9 Chronic obstructive pulmonary disease, unspecified | CPT/HCPCS: 71046 ==

== ENCOUNTER 2024-03-31 11:42 | Outpatient (CLI) | payer OTHER ==
[2024-03-31 13:12] LABS: Hematocrit 33.6 % (34.9-44.5); Hemoglobin 9.8 g/dL (12.0-15.5); Mean Corpuscular HGB CONC 29.2 g/dL (32.0-36.0); Mean Corpuscular Hemoglobin 22.5 pg (27.0-33.0); Mean Corpuscular Volume 77.2 fL (81.6-98.3); Mean Platelet Volume 9.6 fL (7.4-10.4); Platelet Count 312 10x3/uL (150-450); RBC Distribution Width 20.7 % (11.5-14.5); Red Blood Cell (RBC) Count 4.35 10x6/uL (3.90-5.03); White Blood Cell (WBC) Count 10.5 10x3/uL (3.5-10.5)
[2024-03-31 13:25] LABS: Anion Gap 12 mmol/L (10-20); BUN (Urea Nitrogen) 9 mg/dL (9.8-20.1); Calc. Creatinine Clearance 0 mL/min (70-130); Calcium 9.2 mg/dL (7.8-10.44); Carbon Dioxide 26 mmol/L (23-31); Chloride 102 mmol/L (98-107); Estimated GFR 100; Glucose 89 mg/dL (80-115); Potassium 4.4 mmol/L (3.5-5.1); Sodium 136 mmol/L (136-145)
== END 2024-03-31 11:43 | disposition home or self-care (01) ==
LOC: LABBT 11:42
PROVIDERS: ATTEND Thoracic Surgery (Cardiothoracic Vascular Surgery)
DX: Z01.818 Encounter for other preprocedural examination (principal); I65.21 Occlusion and stenosis of right carotid artery
CPT/HCPCS: 80048; 85027; 93005; 93010

== ENCOUNTER 2024-03-31 12:30 | Inpatient (IN) | payer OTHER ==
[2024-04-04] MEDS ORDERED: Lidocaine 1% MPF 2 ML VIAL ONE (06:45)
[2024-04-04] MEDS ORDERED: Heparin 5,000 UNITS/ML VIAL ONE (06:54)
[2024-04-04] MEDS ORDERED: EPINEPHrine 1 MG/ML VIAL ONE (06:54)
[2024-04-04] MEDS ORDERED: Bupivacaine PF 0.5% 30 ML VIAL ONE (06:55)
[2024-04-04] MEDS ORDERED: fentaNYL PF 100 MCG/2 ML SYRINGE ONE ×2 (07:06→08:08)
[2024-04-04] MEDS ORDERED: PROPOFOL 20 ML ONE ×2 (07:06→08:13)
[2024-04-04] MEDS ORDERED: ePHEDrine Sulfate 50 MG/10 ML VIAL ONE (07:07)
[2024-04-04] MEDS ORDERED: CEFAZOLIN 2 GM VIAL ONE (07:27)
[2024-04-04] MEDS ORDERED: Sodium Chloride 0.9% 100 ML ONE (07:27)
[2024-04-04] MEDS ORDERED: NEOSTIGMINE 3 MG/3 ML SYR 3 MG/3 ML SYRINGE ONE (08:39)
[2024-04-04] MEDS ORDERED: PHENYLEPHRINE-NS 100 MCG/ML 10 ML SYRINGE ONE (08:39)
[2024-04-04] MEDS ORDERED: Glycopyrrolate 0.2 MG/ML 5 ML SYRINGE ONE (08:39)
[2024-04-04] MEDS ORDERED: Dexamethasone 4 mg/ml Vial ONE (08:40)
[2024-04-04] MEDS ORDERED: Heparin 10,000 UNITS/ 10 ML VIAL ONE (08:40)
[2024-04-04] MEDS ORDERED: Rocuronium Bromide 10 MG/ML (10ML VIAL) ONE (08:40)
[2024-04-04] MEDS ORDERED: Protamine Sulfate 50 MG/5 ML VIAL ONE (08:40)
[2024-04-04] MEDS ORDERED: Lidocaine 1% PF 5 ML VIAL ONE (08:40)
[2024-04-04] MEDS ORDERED: Ondansetron PF 4 MG/2 ML Vial IVP PRN (09:22)
[2024-04-04] MEDS ORDERED: Ipratropium/Albuterol 3 ML NEB NEB PRN (09:22)
[2024-04-04] MEDS ORDERED: Acetaminophen 325 MG TAB PO PRN (09:22)
[2024-04-04] MEDS ORDERED: fentaNYL 50 mcg/mL 1 mL Vial SLOW IVP PRN (09:22)
[2024-04-04] MEDS ORDERED: HYDROcodone/Acetaminophen 10/325 mg Tablet PO PRN (09:22)
[2024-04-04] MEDS ORDERED: Promethazine HCl 25 MG/ML VIAL IM PRN (09:22)
[2024-04-04] MEDS ORDERED: Non-Formulary Item 1 EACH (Multivitamin [Multi-Vitamin Daily] 1 TABLET Tablet) PO SCH (09:22)
[2024-04-04] MEDS ORDERED: Ipratropium Bromide 2.5 ml Neb NEB PRN (09:22)
[2024-04-04] MEDS ORDERED: Nitroglycerin 50 MG/250 ML BOT 250 ML IVPB PRN (09:22)
[2024-04-04] MEDS ORDERED: guaiFENesin ER 600 MG TAB PO PRN (09:22)
[2024-04-04] MEDS ORDERED: Albuterol 200 PUFF (6.7GM INHALER) INH PRN (09:22)
[2024-04-04] MEDS: Famotidine 20 MG TAB PO SCH (10:11)
[2024-04-04] MEDS: DULoxetine 30 MG CAP PO SCH (10:11)
[2024-04-04] MEDS: Sodium Chloride 0.9% 1,000 ML IV SCH (10:42)
[2024-04-04] MEDS: Phenylephrine 40 MG in Sodium Chloride 0.9% 250 ML 250 ML IVPB PRN (11:04)
[2024-04-04 12:43] VITALS: BMI 23.1
[2024-04-04] MEDS: Ipratropium/Albuterol 3 ML NEB NEB SCH (13:06)
[2024-04-04] MEDS: CEFAZOLIN 2 GM in Sodium Chloride 0.9% 100 ML IVPB SCH (13:37)
[2024-04-04] MEDS: HYDROcodone/Acetaminophen 10/325 mg Tablet PO PRN (20:07)
[2024-04-04] MEDS ORDERED: Non-Formulary Item 1 EACH (Atorvastatin Calcium [Atorvastatin Calcium] 80 MG Tablet) PO SCH (21:00)
[2024-04-04] MEDS: Atorvastatin Calcium 40 MG TAB PO SCH (21:13)
[2024-04-04] MEDS: Insulin Regular, Human 100 UNIT/ML 10 ML VIAL SC PRN (21:26)
[2024-04-04] MEDS: ALPRAZolam 0.5 MG TAB PO PRN (21:26)
[2024-04-05] MEDS: Aspirin 81 mg Enteric Coated Tablet PO SCH (08:16)
[2024-04-05] MEDS: Multivit, Therapeutic 1 TAB PO SCH (08:16)
[2024-04-05] MEDS: Clopidogrel Bisulfate 75 MG TAB PO SCH (08:16)
[2024-04-05 08:23] VITALS: TEMP 98.5
== END 2024-04-05 10:39 | disposition home or self-care (01) | DRG 36 ==
LOC: SURG A 04-04 06:35 → CCU 04-04 10:33 → EDSTATUS 04-04 12:30
PROVIDERS: ADMIT Thoracic Surgery (Cardiothoracic Vascular Surgery); ATTEND Thoracic Surgery (Cardiothoracic Vascular Surgery)
PROC: 037H3DZ Dilation of Right Common Carotid Artery with Intraluminal Device, Percutaneous Approach (ICD-10-PCS; principal; 2024-04-04)
DX: I65.21 Occlusion and stenosis of right carotid artery (principal); E78.5 Hyperlipidemia, unspecified; I11.0 Hypertensive heart disease with heart failure; I50.9 Heart failure, unspecified; J44.9 Chronic obstructive pulmonary disease, unspecified; M19.90 Unspecified osteoarthritis, unspecified site; F41.9 Anxiety disorder, unspecified; Z88.2 Allergy status to sulfonamides; Z99.81 Dependence on supplemental oxygen; Z87.891 Personal history of nicotine dependence
CPT/HCPCS: 36416; 93005; 93010; 94640; C1725; C1769; C1876; C1884; J0171; J0665; J1100; J1642; J1644; J1815; J2371; J2704; J2720; J3490; J7050; J7620

== ENCOUNTER 2024-04-12 10:43 | Outpatient (CLI) | payer OTHER | END 2024-04-12 10:44 | disposition home or self-care (01) | LOC: BICCT 10:43 | PROVIDERS: ATTEND Internal Medicine Critical Care Medicine | DX: R91.1 Solitary pulmonary nodule (principal); J43.9 Emphysema, unspecified; J98.11 Atelectasis; I25.10 Atherosclerotic heart disease of native coronary artery without angina pectoris; S22.081A Stable burst fracture of T11-T12 vertebra, initial encounter for closed fracture | CPT/HCPCS: 71250 ==

== ENCOUNTER 2024-10-18 23:44 | Inpatient (IN) | payer OTHER ==
[2024-10-19 01:27] VITALS: BMI 24.7
[2024-10-19] MEDS ORDERED: Glucagon 1 MG/ML KIT IM PRN (01:28)
[2024-10-19] MEDS ORDERED: Dextrose 5% in Water 1,000 ML IV PRN (01:28)
[2024-10-19] MEDS ORDERED: Acetaminophen 650 MG Suppository PR PRN (01:28)
[2024-10-19] MEDS ORDERED: Dextrose 50% Abboject 50 ML SYRINGE SLOW IVP PRN (01:28)
[2024-10-19] MEDS ORDERED: Albuterol 200 PUFF (6.7GM INHALER) INH PRN ×2 (01:33→08:33)
[2024-10-19] MEDS ORDERED: Sodium Chloride 0.9% 500 ML IV SCH (02:15)
[2024-10-19] MEDS: Magnesium 2 GM/50 ML(in water) 2 GM in Premix 1 BAG IVPB SCH (02:16)
[2024-10-19] MEDS: Ipratropium/Albuterol 3 ML NEB NEB PRN (02:16)
[2024-10-19] MEDS: HYDROcodone/Acetaminophen 5/325 mg Tablet PO SCH (02:16)
[2024-10-19] MEDS: Insulin Lispro 100 UNIT/ML 10 ML VIAL SC PRN ×2 (02:17→05:58)
[2024-10-19] MEDS ORDERED: guaiFENesin ER 600 MG TAB PO PRN (02:18)
[2024-10-19] MEDS ORDERED: Benzonatate 100 MG CAP PO PRN (02:19)
[2024-10-19] MEDS ORDERED: Guaifenesin DM 100-10/5 ML UDCUP PO PRN (02:19)
[2024-10-19 03:05] LABS: Legionella Urinary Ag Negative (Negative); Strep pneumo Urine Ag NEGATIVE (NEGATIVE)
[2024-10-19 05:17] LABS: #Basophils Less than 0.03 10x3/uL (0.0-0.2); #Eosinophils Less than 0.03 10x3/uL (0.0-0.7); %Basophils 0.2 % (0.0-1.0); %Lymphocytes 3.1 % (21.0-51.0); %Monocytes 0.9 % (0.0-10.0); %Neutrophils 95.4 % (42.0-75.0); Hematocrit 32.6 % (36.0-47.0); Mean Corpuscular HGB CONC 30.7 g/dL (32.0-36.0); Mean Corpuscular Hemoglobin 25.9 pg (27.0-31.0); Mean Corpuscular Volume 84.5 fL (78.0-98.0); Mean Platelet Volume 9.7 fL (7.4-10.4); Platelet Count 236 10x3/uL (130-400); RBC Distribution Width 15.4 % (11.5-14.5); Red Blood Cell (RBC) Count 3.86 mill/uL (4.20-5.40)
[2024-10-19 05:48] LABS: BUN (Urea Nitrogen) 12 mg/dL (9.8-20.1); Calc. Creatinine Clearance 56 mL/min (70-130); Calcium 8.9 mg/dL (7.8-10.44); Carbon Dioxide 25 mmol/L (23-31); Estimated GFR 66; Glucose 303 mg/dL (80-115); Magnesium 2.3 mg/dL (1.6-2.6)
[2024-10-19 06:06] LABS: Anion Gap 13 mmol/L (10-20); Chloride 102 mmol/L (98-107); Sodium 133 mmol/L (136-145)
[2024-10-19] MEDS ORDERED: Famotidine 20 MG TAB PO SCH (09:00)
[2024-10-19] MEDS: Insulin Glargine 30 UNITS/0.3 ML VIAL SC SCH (09:52)
[2024-10-19] MEDS: Oseltamivir 75 MG CAP PO SCH (09:53)
[2024-10-19] MEDS: Famotidine 20 MG TAB PO SCH (09:53)
[2024-10-19] MEDS: ALPRAZolam 0.5 MG TAB PO SCH (09:53)
[2024-10-19] MEDS: DULoxetine 30 MG CAP PO SCH (09:53)
[2024-10-19] MEDS: predniSONE 20 MG TAB PO SCH (09:53)
[2024-10-19] MEDS: Clopidogrel Bisulfate 75 MG TAB PO SCH (09:53)
[2024-10-19] MEDS: Acetaminophen 325 MG TAB PO PRN (10:04)
[2024-10-19 10:42] VITALS: BMI 24.7
[2024-10-19] MEDS: HYDROcodone/Acetaminophen 10/325 mg Tablet PO PRN (17:56)
[2024-10-19] MEDS: cefTRIAXone\\ROCEPHIN 1 GM in Sodium Chloride 0.9% 100 ML IVPB SCH (20:44)
[2024-10-19] MEDS: Atorvastatin Calcium 40 MG TAB PO SCH (20:44)
[2024-10-19] MEDS: Azithromycin 500 MG in Sodium Chloride 0.9% 250 ML 250 ML IVPB SCH (23:50)
[2024-10-20 04:05] LABS: #Basophils Less than 0.03 10x3/uL (0.0-0.2); #Eosinophils Less than 0.03 10x3/uL (0.0-0.7); %Basophils 0.1 % (0.0-1.0); %Lymphocytes 7.2 % (21.0-51.0); %Monocytes 10.5 % (0.0-10.0); %Neutrophils 81.6 % (42.0-75.0); Hematocrit 31.9 % (36.0-47.0); Hemoglobin 9.8 g/dL (12.0-16.0); Mean Corpuscular HGB CONC 30.7 g/dL (32.0-36.0); Mean Corpuscular Hemoglobin 26.1 pg (27.0-31.0); Mean Corpuscular Volume 84.8 fL (78.0-98.0); Mean Platelet Volume 9.9 fL (7.4-10.4); Platelet Count 260 10x3/uL (130-400); RBC Distribution Width 15.5 % (11.5-14.5); Red Blood Cell (RBC) Count 3.76 mill/uL (4.20-5.40)
[2024-10-20 04:34] LABS: Anion Gap 12 mmol/L (10-20); BUN (Urea Nitrogen) 20 mg/dL (9.8-20.1); Calc. Creatinine Clearance 65 mL/min (70-130); Calcium 8.8 mg/dL (7.8-10.44); Carbon Dioxide 22 mmol/L (23-31); Chloride 107 mmol/L (98-107); Estimated GFR 79; Glucose 68 mg/dL (80-115); Potassium 4.7 mmol/L (3.5-5.1); Sodium 136 mmol/L (136-145)
[2024-10-20 04:35] LABS: CRP,High Sensitivity (Inhouse) 5.35 mg/dL (< or = 0.5)
[2024-10-20 12:20] VITALS: BP 146/65; TEMP 97.7
== END 2024-10-20 15:45 | disposition home or self-care (01) | DRG 871 ==
LOC: 2NO 10-19 00:54
PROVIDERS: ADMIT Internal Medicine; ATTEND Internal Medicine
DX: A41.9 Sepsis, unspecified organism (principal); J18.9 Pneumonia, unspecified organism; J96.21 Acute and chronic respiratory failure with hypoxia; J44.1 Chronic obstructive pulmonary disease with (acute) exacerbation; I50.32 Chronic diastolic (congestive) heart failure; J10.1 Influenza due to other identified influenza virus with other respiratory manifestations; E11.9 Type 2 diabetes mellitus without complications; I25.10 Atherosclerotic heart disease of native coronary artery without angina pectoris; Z88.2 Allergy status to sulfonamides; Z90.49 Acquired absence of other specified parts of digestive tract; E83.42 Hypomagnesemia; Z79.899 Other long term (current) drug therapy
CPT/HCPCS: 36415; 36416; 80048; 83036; 83605; 83735; 84145; 85025; 86141; 87449; 87899; 94640; J0456; J0696; J1815; J3475; J7050; J7512; J7620

== ENCOUNTER 2025-07-27 20:48 | Inpatient (IN) | payer OTHER ==
[2025-07-28] MEDS ORDERED: Melatonin 3 MG TAB PO PRN (00:40)
[2025-07-28] MEDS ORDERED: Ondansetron PF 4 MG/2 ML Vial IVP PRN (00:40)
[2025-07-28] MEDS ORDERED: Acetaminophen 325 MG TAB PO PRN (00:40)
[2025-07-28] MEDS ORDERED: Furosemide 20 MG TAB PO PRN (00:43)
[2025-07-28] MEDS ORDERED: Glucagon 1 MG/ML KIT IM PRN (00:50)
[2025-07-28] MEDS ORDERED: Dextrose 50% Abboject 50 ML SYRINGE SLOW IVP PRN (00:50)
[2025-07-28] MEDS: Magnesium 2 GM/50 ML(in water) 2 GM in Premix 1 BAG IVPB SCH (01:20)
[2025-07-28 02:42] VITALS: BMI 28.2
[2025-07-28] MEDS ORDERED: ALPRAZolam 0.5 MG TAB PO SCH (02:45)
[2025-07-28] MEDS ORDERED: Albuterol 200 PUFF (6.7GM INHALER) INH PRN (02:49)
[2025-07-28] MEDS: ALPRAZolam 0.25 MG TAB PO SCH (02:54)
[2025-07-28 04:35] LABS: #Basophils Less than 0.03 10x3/uL (0.0-0.2); #Eosinophils Less than 0.03 10x3/uL (0.0-0.7); #Monocytes 0.06 10x3/uL (0.11-0.59); #Neutrophils 7.59 10x3/uL (1.40-6.50); %Basophils 0.1 % (0.0-1.0); %Eosinophils 0.0 % (0.0-10.0); %Lymphocytes 2.8 % (21.0-51.0); %Monocytes 0.8 % (0.0-10.0); %Neutrophils 95.4 % (42.0-75.0); Hematocrit 33.7 % (36.0-47.0); Hemoglobin 9.4 g/dL (12.0-16.0); Mean Corpuscular Hemoglobin 22.2 pg (27.0-31.0); Mean Corpuscular Volume 79.7 fL (78.0-98.0); Platelet Count 314 10x3/uL (130-400); Red Blood Cell (RBC) Count 4.23 mill/uL (4.20-5.40); White Blood Cell (WBC) Count 7.95 10x3/uL (4.8-10.8)
[2025-07-28 04:58] LABS: Anion Gap 15 mmol/L (10-20); BUN (Urea Nitrogen) 15 mg/dL (9.8-20.1); Calc. Creatinine Clearance 64 mL/min (70-130); Calcium 9.0 mg/dL (7.8-10.44); Carbon Dioxide 22 mmol/L (23-31); Chloride 103 mmol/L (98-107); Glucose 377 mg/dL (80-115); Potassium 4.3 mmol/L (3.5-5.1); Sodium 136 mmol/L (136-145)
[2025-07-28] MEDS ORDERED: Mometasone 100 MCG/Formoterol 5 MCG 120 PUFF INHALER INH SCH (06:30)
[2025-07-28] MEDS: Mometasone 200 MCG/Formoterol 5 MCG 120 PUFF INHALER INH SCH (07:13)
[2025-07-28] MEDS: Famotidine 20 MG TAB PO SCH (10:00)
[2025-07-28] MEDS: DULoxetine 30 MG CAP PO SCH (10:00)
[2025-07-28] MEDS: metFORMIN 500 MG TAB PO SCH (10:00)
[2025-07-28] MEDS: HYDROcodone/Acetaminophen 10/325 mg Tablet PO PRN (11:46)
[2025-07-28] MEDS: Pantoprazole 40 MG DR.TAB PO SCH ×2 (11:47→21:19)
[2025-07-28 14:51] VITALS: BMI 28.2
[2025-07-28] MEDS: cefTRIAXone\\ROCEPHIN 1 GM in Sodium Chloride 0.9% 100 ML IVPB SCH (21:17)
[2025-07-28] MEDS: Azithromycin 500 MG in Sodium Chloride 0.9% 250 ML 250 ML IVPB SCH (21:18)
[2025-07-28] MEDS: Senokot S 8.6-50 MG TAB PO PRN (22:53)
[2025-07-28] MEDS: Simethicone Chewable 80 MG TAB PO PRN (22:53)
[2025-07-29 05:37] LABS: Anion Gap 13 mmol/L (10-20); BUN (Urea Nitrogen) 23 mg/dL (9.8-20.1); Calc. Creatinine Clearance 57 mL/min (70-130); Calcium 9.6 mg/dL (7.8-10.44); Carbon Dioxide 25 mmol/L (23-31); Chloride 108 mmol/L (98-107); Glucose 152 mg/dL (80-115); Potassium 4.9 mmol/L (3.5-5.1); Sodium 141 mmol/L (136-145)
[2025-07-29 05:46] LABS: #Basophils Less than 0.03 10x3/uL (0.0-0.2); #Eosinophils Less than 0.03 10x3/uL (0.0-0.7); #Monocytes 0.95 10x3/uL (0.11-0.59); #Neutrophils 15.70 10x3/uL (1.40-6.50); %Basophils 0.1 % (0.0-1.0); %Eosinophils 0.0 % (0.0-10.0); %Lymphocytes 5.2 % (21.0-51.0); %Monocytes 5.3 % (0.0-10.0); %Neutrophils 88.5 % (42.0-75.0); Hematocrit 33.2 % (36.0-47.0); Hemoglobin 9.3 g/dL (12.0-16.0); Mean Corpuscular Hemoglobin 22.6 pg (27.0-31.0); Mean Corpuscular Volume 80.6 fL (78.0-98.0); Platelet Count 392 10x3/uL (130-400); Red Blood Cell (RBC) Count 4.12 mill/uL (4.20-5.40); White Blood Cell (WBC) Count 17.76 10x3/uL (4.8-10.8)
[2025-07-29] MEDS ORDERED: metFORMIN XR 500 MG ER.TAB PO SCH (15:30)
[2025-07-29] MEDS: cefTRIAXone\\ROCEPHIN 2 GM in Sodium Chloride 0.9% 100 ML IVPB SCH (21:35)
[2025-07-30 04:42] LABS: #Basophils Less than 0.03 10x3/uL (0.0-0.2); #Eosinophils Less than 0.03 10x3/uL (0.0-0.7); #Monocytes 0.33 10x3/uL (0.11-0.59); #Neutrophils 10.48 10x3/uL (1.40-6.50); %Basophils 0.2 % (0.0-1.0); %Eosinophils 0.0 % (0.0-10.0); %Lymphocytes 3.9 % (21.0-51.0); %Monocytes 2.9 % (0.0-10.0); %Neutrophils 91.8 % (42.0-75.0); Hematocrit 35.4 % (36.0-47.0); Hemoglobin 10.0 g/dL (12.0-16.0); Mean Corpuscular Hemoglobin 22.5 pg (27.0-31.0); Mean Corpuscular Volume 79.6 fL (78.0-98.0); Platelet Count 373 10x3/uL (130-400); Red Blood Cell (RBC) Count 4.45 mill/uL (4.20-5.40); White Blood Cell (WBC) Count 11.41 10x3/uL (4.8-10.8)
[2025-07-30 04:52] LABS: Anion Gap 11 mmol/L (10-20); BUN (Urea Nitrogen) 24 mg/dL (9.8-20.1); Calc. Creatinine Clearance 53 mL/min (70-130); Calcium 9.5 mg/dL (7.8-10.44); Carbon Dioxide 26 mmol/L (23-31); Chloride 105 mmol/L (98-107); Glucose 150 mg/dL (80-115); Potassium 5.4 mmol/L (3.5-5.1); Sodium 137 mmol/L (136-145)
[2025-07-30] MEDS ORDERED: metFORMIN XR 500 MG ER.TAB PO SCH (08:00)
[2025-07-30] MEDS: Carvedilol 6.25 MG TAB PO SCH ×2 (13:23→17:50)
[2025-07-30 14:23] LABS: Anion Gap 13 mmol/L (10-20); BUN (Urea Nitrogen) 23 mg/dL (9.8-20.1); Calc. Creatinine Clearance 61 mL/min (70-130); Calcium 9.4 mg/dL (7.8-10.44); Carbon Dioxide 23 mmol/L (23-31); Chloride 102 mmol/L (98-107); Glucose 146 mg/dL (80-115); Potassium 5.0 mmol/L (3.5-5.1); Sodium 133 mmol/L (136-145)
[2025-07-30] MEDS: diphenhydrAMINE 25 MG CAP PO SCH (21:41)
[2025-07-31 04:08] LABS: #Basophils Less than 0.03 10x3/uL (0.0-0.2); #Eosinophils Less than 0.03 10x3/uL (0.0-0.7); #Monocytes 0.40 10x3/uL (0.11-0.59); #Neutrophils 10.49 10x3/uL (1.40-6.50); %Basophils 0.2 % (0.0-1.0); %Eosinophils 0.0 % (0.0-10.0); %Lymphocytes 6.6 % (21.0-51.0); %Monocytes 3.4 % (0.0-10.0); %Neutrophils 88.6 % (42.0-75.0); Hematocrit 35.8 % (36.0-47.0); Hemoglobin 9.8 g/dL (12.0-16.0); Mean Corpuscular Hemoglobin 22.0 pg (27.0-31.0); Mean Corpuscular Volume 80.4 fL (78.0-98.0); Platelet Count 385 10x3/uL (130-400); Red Blood Cell (RBC) Count 4.45 mill/uL (4.20-5.40); White Blood Cell (WBC) Count 11.83 10x3/uL (4.8-10.8)
[2025-07-31 04:17] LABS: Anion Gap 14 mmol/L (10-20); BUN (Urea Nitrogen) 31 mg/dL (9.8-20.1); Calc. Creatinine Clearance 51 mL/min (70-130); Calcium 9.3 mg/dL (7.8-10.44); Carbon Dioxide 25 mmol/L (23-31); Chloride 104 mmol/L (98-107); Glucose 144 mg/dL (80-115); Potassium 5.6 mmol/L (3.5-5.1); Sodium 137 mmol/L (136-145)
[2025-07-31] MEDS ORDERED: FLU (Fluarix Triv) 25-26 (6MOS UP)/PF 45 MCG/0.5 ML Syringe IM ONE (09:00)
[2025-07-31 13:35] LABS: Anion Gap 16 mmol/L (10-20); BUN (Urea Nitrogen) 35 mg/dL (9.8-20.1); Calc. Creatinine Clearance 58 mL/min (70-130); Calcium 9.3 mg/dL (7.8-10.44); Carbon Dioxide 22 mmol/L (23-31); Chloride 103 mmol/L (98-107); Glucose 181 mg/dL (80-115); Potassium 4.9 mmol/L (3.5-5.1); Sodium 136 mmol/L (136-145)
[2025-07-31] MEDS: diphenhydrAMINE 25 MG CAP PO SCH (22:24)
[2025-08-01 04:13] LABS: #Basophils Less than 0.03 10x3/uL (0.0-0.2); #Eosinophils Less than 0.03 10x3/uL (0.0-0.7); #Monocytes 0.48 10x3/uL (0.11-0.59); #Neutrophils 9.10 10x3/uL (1.40-6.50); %Basophils 0.2 % (0.0-1.0); %Eosinophils 0.0 % (0.0-10.0); %Lymphocytes 6.9 % (21.0-51.0); %Monocytes 4.6 % (0.0-10.0); %Neutrophils 86.7 % (42.0-75.0); Hematocrit 35.3 % (36.0-47.0); Hemoglobin 9.9 g/dL (12.0-16.0); Mean Corpuscular Hemoglobin 22.2 pg (27.0-31.0); Mean Corpuscular Volume 79.3 fL (78.0-98.0); Platelet Count 373 10x3/uL (130-400); Red Blood Cell (RBC) Count 4.45 mill/uL (4.20-5.40); White Blood Cell (WBC) Count 10.49 10x3/uL (4.8-10.8)
[2025-08-01 04:44] LABS: Anion Gap 9 mmol/L (10-20); BUN (Urea Nitrogen) 38 mg/dL (9.8-20.1); Calc. Creatinine Clearance 51 mL/min (70-130); Calcium 8.5 mg/dL (7.8-10.44); Carbon Dioxide 24 mmol/L (23-31); Chloride 105 mmol/L (98-107); Glucose 162 mg/dL (80-115); Potassium 5.0 mmol/L (3.5-5.1); Sodium 133 mmol/L (136-145)
[2025-08-01] MEDS: diphenhydrAMINE 25 MG CAP PO SCH (21:55)
[2025-08-02 04:27] LABS: #Basophils Less than 0.03 10x3/uL (0.0-0.2); #Eosinophils Less than 0.03 10x3/uL (0.0-0.7); #Monocytes 0.69 10x3/uL (0.11-0.59); #Neutrophils 8.68 10x3/uL (1.40-6.50); %Basophils 0.1 % (0.0-1.0); %Eosinophils 0.0 % (0.0-10.0); %Lymphocytes 6.8 % (21.0-51.0); %Monocytes 6.7 % (0.0-10.0); %Neutrophils 84.8 % (42.0-75.0); Hematocrit 35.1 % (36.0-47.0); Hemoglobin 9.8 g/dL (12.0-16.0); Mean Corpuscular Hemoglobin 22.2 pg (27.0-31.0); Mean Corpuscular Volume 79.4 fL (78.0-98.0); Platelet Count 366 10x3/uL (130-400); Red Blood Cell (RBC) Count 4.42 mill/uL (4.20-5.40); White Blood Cell (WBC) Count 10.24 10x3/uL (4.8-10.8)
[2025-08-02 04:35] LABS: Anion Gap 14 mmol/L (10-20); BUN (Urea Nitrogen) 35 mg/dL (9.8-20.1); Calc. Creatinine Clearance 58 mL/min (70-130); Calcium 8.3 mg/dL (7.8-10.44); Carbon Dioxide 20 mmol/L (23-31); Chloride 110 mmol/L (98-107); Glucose 170 mg/dL (80-115); Potassium 4.8 mmol/L (3.5-5.1); Sodium 139 mmol/L (136-145)
[2025-08-02] MEDS: Simethicone Chewable 80 MG TAB PO PRN (08:50)
[2025-08-02] MEDS: diphenhydrAMINE 25 MG CAP PO SCH (21:00)
[2025-08-03] MEDS: predniSONE 20 MG TAB PO SCH (08:39)
[2025-08-03 16:20] VITALS: BP 179/78; TEMP 98.3
== END 2025-08-03 17:33 | disposition home health service (06) | DRG 189 ==
LOC: 2SE 23:10 → UNDOADMIN 23:10 → 2SE 07-28 00:42
PROVIDERS: ADMIT Internal Medicine; ATTEND Student in an Organized Health Care Education/Training Program
DX: J96.21 Acute and chronic respiratory failure with hypoxia (principal); J44.1 Chronic obstructive pulmonary disease with (acute) exacerbation; I50.32 Chronic diastolic (congestive) heart failure; I25.10 Atherosclerotic heart disease of native coronary artery without angina pectoris; E11.51 Type 2 diabetes mellitus with diabetic peripheral angiopathy without gangrene; I65.21 Occlusion and stenosis of right carotid artery; I11.0 Hypertensive heart disease with heart failure; J43.2 Centrilobular emphysema; Z99.81 Dependence on supplemental oxygen; Z88.2 Allergy status to sulfonamides; Z98.1 Arthrodesis status; Z98.51 Tubal ligation status; Z90.49 Acquired absence of other specified parts of digestive tract; Z98.890 Other specified postprocedural states; Z79.4 Long term (current) use of insulin; Z79.84 Long term (current) use of oral hypoglycemic drugs; Z79.899 Other long term (current) drug therapy; Z23 Encounter for immunization; Z93.3 Colostomy status
CPT/HCPCS: 36415; 36416; 74018; 80048; 83036; 85025; 94640; J0456; J0696; J1815; J2919; J3475; J7030; J7050; J7512